=== PATIENT | male | born 1940 | race Caucasian/White ===

== ENCOUNTER → 2020-04-02 09:09 | Outpatient (CLI) | payer MEDICARE, SELFPAY ==
[2020-04-02 11:31] LABS: COVID19 -Nasal RAPID Negative (Negative)
== END ==
PROVIDERS: Visit Provider Nurse Practitioner
DX: Z01.812 Encounter for preprocedural laboratory examination (principal); Z20.822 Contact with and (suspected) exposure to COVID-19
CPT/HCPCS: 87635; C9803

== ENCOUNTER 2020-04-04 08:30 | Day surgery (SDC) | payer MEDICARE, SELFPAY ==
[2020-04-04 08:57] VITALS: BP 162/79; PULSE 109; RESP 24; TEMP 36.8; O2SAT 98; BMI 21.4
[2020-04-04] MEDS: SODIUM CHLORIDE 0.9% 1,000 ML 70 ML IV (08:57)
[2020-04-04] MEDS: ALBUTEROL 2.5 MG/3 ML NEB (ADULT) INH (09:20)
--- NOTE | 2020-04-04 09:22 | PM.HP.1 ---
History of Present Illness History of Present Illness Date Patient Seen: 04/04/20 Time Patient Seen: 09:15 Chief complaint: SCREENING COLONOSCOPY Narrative: Patient is a pleasant 80-year-old male who presented for surveillance colonoscopy. He describes having a personal history colon polyps on his last colonoscopy approximately 2013. He denies diarrhea or constipation. Denies rectal bleeding. He has had some intermittent shortness of breath. He did use his inhalers this morning. He has not had a breathing treatment today. Patient History Family & Social History Social History: household members spouse Tobacco & Substance use: Smoking Status Never smoker alcohol intake never Substance Use Type does not use Meds Home Medications and Allergies Home Medications Medication Instructions Recorded Confirmed Type doxycycline hyclate 100 mg PO Q12H #20 cap 12/02/15 Rx fluticasone propion-salmeterol 1 inh INHALATION DAILY 04/04/20 04/04/20 History [Advair Diskus] hydroxychloroquine 200 mg PO DAILY 04/04/20 04/04/20 History insulin aspart U-100 [Novolog 6 unit SUBCUT 04/04/20 History Flexpen U-100 Insulin] insulin glargine [Lantus Solostar unit SUBCUT DAILY 04/04/20 History U-100 Insulin] lisinopril 5 mg PO DAILY 04/04/20 04/04/20 History pravastatin 20 mg PO DAILY 04/04/20 04/04/20 History Allergies Allergy/AdvReac Type Severity Reaction Status Date / Time shellfish derived AdvReac Verified 04/04/20 08:42 Review of Systems Review of Systems ROS: Yes All systems reviewed with the patient and are negative except as otherwise documented Exam Vital Signs (past 8 hours): - 04/04/20 08:57 Temperature 98.2 F Pulse Rate 109 H Respiratory Rate 24 Blood Pressure 162/79 H Pulse Oximetry 98 Oxygen Delivery Method Room Air Const General: cooperative, healthy appearing, comfortable and well developed Nutritional Appearance: average body habitus Orientation: alert, awake and oriented x3 HENMT Head: normal to inspection, normocephalic and atraumatic Resp Effort & Inspection: normal respiratory effort and able to speak in complete sentences Auscultation: wheezes Cardio Rate: regular rate Rhythm: regular rhythm Heart Sounds: S1 normal and S2 normal Extrem Right lower extremity: no edema Left lower extremity: no edema Assessment & Plan Assessment & Plan narrative: 1. Personal history colon polyps, last colonoscopy approximately 2013 2. Audible wheeze on exam Breathing treatment, followed by colonoscopy with further recommendations to follow
[2020-04-04] MEDS: MIDAZOLAM 5 MG/5 ML VIAL IV (09:55)
[2020-04-04] MEDS: fentaNYL 250 MCG/5 ML INJ IV (09:56)
[2020-04-04 09:57] VITALS: BP 113/56; PULSE 89; RESP 15; TEMP 37.7; O2SAT 97
--- NOTE | 2020-04-04 09:58 | PM.OP.ENDO ---
Operative Date/Time/Diagnoses Date of procedure: 04/04/20 Time of procedure: 09:31 Procedure Notes Procedure in detail: Surgeon: Rebekah Moser DO Procedure: Colonoscopy Preoperative diagnosis: 1. Personal history of colon polyps, last colonoscopy 2013 Postoperative diagnosis: 1. Internal hemorrhoids, otherwise unremarkable colonoscopy Medications: Conscious sedation using 4 mg IV of Midazolam and 100 mcg IV of Fentanyl Preanesthesia Assessment An H and P was performed/updated and the Px?s ASA class is 2. The procedure was discussed in detail with the patient. The potential risks and complications including infection, bleeding, missed lesions, perforation, need for surgery in case of perforation, prolonged hospital stay, and were explained. A brief question and answer period was allotted and once all questions were answered, informed consent was obtained. The patient was brought back to the procedure room and placed on standard monitoring. The patient?s vital signs were monitored continuously throughout the entire procedure. Prior to starting, a timeout was performed to confirm the patient?s identity, allergies, medications, and procedure. Procedure in detail The patient was placed in left lateral decubitus position and once adequate sedation was obtained a DILCIA was performed. The digital rectal examination did not reveal any palpable lesions. The tip of the colonoscope was placed in the anal canal and advanced with some difficulty due to a redundant colon. Manual pressure was applied to help a the scope advance all the way to the cecum which was identified by the appendiceal orifice and the ileocecal valve. Careful examination of all johnson of the colon was performed with irrigation of any residual stool. Second pass of the ascending colon was completed. Grade 1 internal hemorrhoids were noted on retroflexion. The patient tolerated the procedure well and will be brought back to the recovery area to be discharged once criteria are met. The prep was judged to be good/excellent and adequate to identify polyps less than 5 mm. The withdrawal time was 7min. The total physician intraservice time was 20min. Complications There were no complications and estimated blood loss was minimal. Recommendations: Resume previous diet Continue outPx medications No the colonoscopy due to age An emergency contact number was given to the patient for any complications related to the procedure
[2020-04-04 10:02] VITALS: BP 117/56; PULSE 88; RESP 15; O2SAT 97
[2020-04-04 10:06] VITALS: BP 126/63; PULSE 96; RESP 14; O2SAT 98
[2020-04-04 10:10] VITALS: BP 118/62; PULSE 89; RESP 16; O2SAT 99
== END 2020-04-04 10:25 | disposition home or self-care (01) ==
PROVIDERS: PCP Internal Medicine; Referring Provider Student in an Organized Health Care Education/Training Program; Visit Provider Student in an Organized Health Care Education/Training Program
PROC: 0DJD8ZZ Inspection of Lower Intestinal Tract, Via Natural or Artificial Opening Endoscopic (ICD-10-PCS; CPT 45378; principal; 2020-04-04 09:30)
DX: Z12.11 Encounter for screening for malignant neoplasm of colon (principal); Z86.010 Personal history of colon polyps; K64.8 Other hemorrhoids
CPT/HCPCS: G0105; J2250; J3010; J7613

== ENCOUNTER 2020-08-03 04:56 | Inpatient (IN) | payer MEDICARE, SELFPAY ==
[2020-08-03] VITALS (15 sets, daily range): BP systolic 114–146; BP diastolic 59–71; PULSE 84–110; RESP 14–29; TEMP 36.7–37.2; O2SAT 93–97; BMI 20.9
--- NOTE | 2020-08-03 04:58 | DI.RAD.S_ITS ---
PROCEDURE: XR CHEST 1V INDICATIONS: chest pain TECHNIQUE: One view of the chest was acquired. COMPARISON: None. FINDINGS: Surgical changes and devices: None. Lungs and pleura: Peripheral opacities are seen in the right lung most prominent at the apex with bilateral interstitial prominence. There is no pneumothorax. No definite pleural effusions are seen on the separate image, but pleural effusions are noted on the subsequently performed CT. Mediastinum: Mediastinal contours appear normal. Cardiac silhouette is mildly enlarged, with pericardial effusion noted on subsequent CT. Bones and chest wall: No suspicious bony lesions. Overlying soft tissues appear unremarkable. Severe degenerative changes are seen in the left shoulder. IMPRESSION: Right lung consolidations are most prominent in the peripheral right lung apex. Please see the report from the subsequently performed CT pulmonary angiogram for more detailed review of thoracic findings. There is no significant discrepancy when compared to the overnight Teleradiology report. Dictated by: Paul Ellis M.D. on 08/03/2020 at 7:50 Approved by: Paul Ellis M.D. on 08/03/2020 at 7:55
--- NOTE | 2020-08-03 05:05 | ED.GENADULT ---
HPI - General Adult <Yovanny Agarwal DO - Last Filed: 08/03/20 17:55> General Chief complaint: Chest Pain Stated complaint: Chest tightness rapid heart beat Time Seen by Provider: 08/03/20 04:57 Source: patient Mode of arrival: Ambulatory Limitations: no limitations History of Present Illness HPI narrative: Patient is a 80-year-old male. History of insulin-dependent diabetes, high blood pressure and asthma who is here for evaluation of 3 weeks of chest tightness, fevers, weakness, hand increase use of his albuterol. Patient states that for the past several months he has been in the [facility] where he owns a house. He states he had been down there for several months when he started to develop some chest tightness. Also has had a cough. Had 1 episode of a fever and also 1 episode of vomiting but that seems of resolved. Over the course of several months he has had a 12 lb weight loss. Also has been progressively more fatigued. He does have a history of asthma. At baseline does not need to use his albuterol inhaler on a regular basis since he was switched to Advair however over the past couple weeks his albuterol use has increased. He has become very fatigued and short of breath with minimal activity. Does have bilateral ankle swelling but this is not new for him. He denies any chest pain. When I clarify further with him the chest tightness is how he describes not being able to take a full deep breath. He does think that his albuterol inhaler helps a small amount. He states that for the past 3 weeks he has had somewhat of consistent symptoms however there have been periods of time when it has been worse than others. Has not tried anything for symptoms prior to arrival. There has also been some. The time when his heart rate has been elevated at home on their home monitor. Related Data Home Medications Medication Instructions Recorded Confirmed Lantus Solostar U-100 Insulin 12 unit SUBCUT BEDTIME 04/04/20 08/03/20 fluticasone propion-salmeterol 1 inh INHALATION DAILY 04/04/20 08/03/20 [Advair Diskus] hydroxychloroquine 200 mg PO BID 04/04/20 08/03/20 insulin aspart U-100 [Novolog 6 unit SUBCUT TIDWMEAL 04/04/20 08/03/20 Flexpen U-100 Insulin] lisinopril 5 mg PO DAILY 04/04/20 08/03/20 pravastatin 20 mg PO BEDTIME 04/04/20 08/03/20 ferrous gluconate 324 mg PO DAILY 08/03/20 08/03/20 sulfasalazine 500 mg PO BID 08/03/20 08/03/20 vitamin B complex [Vitamin B 1 tab PO DAILY 08/03/20 08/03/20 Complex-100] Allergies Allergy/AdvReac Type Severity Reaction Status Date / Time shellfish derived AdvReac Verified 04/04/20 08:42 Review of Systems <Yovanny Agarwal DO - Last Filed: 08/03/20 17:55> Constitutional Constitutional: Reports fatigue, Reports fever(s), Reports lethargy, Reports poor appetite and Reports weakness Eyes Eyes: Reports system reviewed and no additional complaints, except as documented ENT Ears, Nose, Mouth, and Throat: Reports system reviewed and no additional complaints, except as documented Cardiovascular Cardiovascular: Denies chest pain, Reports rapid heart rate, Reports dyspnea and Reports dyspnea on exertion Respiratory Respiratory: Reports cough, Reports dyspnea and Reports dyspnea on exertion Gastrointestinal Gastrointestinal: Denies abdominal pain, Denies change in bowel habits and Reports vomiting Genitourinary Genitourinary: Reports system reviewed and no additional complaints, except as documented Musculoskeletal Musculoskeletal: Reports system reviewed and no additional complaints, except as documented Integumentary/Breasts Skin/Breast: Reports system reviewed and no additional complaints, except as documented Neurologic Neurologic: Reports system reviewed and no additional complaints, except as documented and Reports weakness Endocrine Endocrine: Reports fatigue Comments: Weight loss Hematologic/Lymphatic On Anticoagulants: No Allergic/Immunologic Allergic/Immunologic: Reports system reviewed and no additional complaints, except as documented Patient History <Yovanny Agarwal DO - Last Filed: 08/03/20 17:55> Medical History (Updated 08/03/20 @ 10:42 by Luz Marina Mcdonald RN) Cataract COPD (chronic obstructive pulmonary disease) Diabetes History of colon polyps Ingrowing toenail of left foot Surgical History (Updated 08/03/20 @ 10:42 by Luz Marina Mcdonald RN) History of cataract surgery Total knee replacement status Social History household members: spouse and family Smoking Status: Never smoker alcohol intake: former Smoking Status: Never smoker Substance Use Type: does not use Exam <DO Aleida Haque Last Filed: 08/03/20 17:55> Initial Vital Signs Initial Vital Signs: Vital Signs Temperature 98.1 F 08/03/20 05:00 Pulse Rate 100 H 08/03/20 05:00 Respiratory Rate 26 H 08/03/20 05:00 Blood Pressure 144/68 H 08/03/20 05:00 Pulse Oximetry 97 08/03/20 05:00 Const General: cooperative and comfortable Limitations: mental status not altered HENIA Head: normal to inspection and normocephalic Chest Chest: normal inspection of the chest Resp Effort & Inspection: tachypneic Auscultation: clear to auscultation bilaterally Cardio Rate: regular rate Rhythm: regular rhythm GI Inspection: non-distended Palpation: soft Skin Lesions: no lesions Rashes: no rashes Neuro General: patient alert, patient awake, patient oriented x3 and moves all extremities Cognition: normal cognition Speech: speech normal Extrem General: normal to inspection and capillary refill normal Psych Appearance: grossly normal and well kempt <Xiomy Dover DO - Last Filed: 08/03/20 18:34> Initial Vital Signs Initial Vital Signs: Vital Signs Temperature 98.1 F 08/03/20 05:00 Pulse Rate 100 H 08/03/20 05:00 Respiratory Rate 26 H 08/03/20 05:00 Blood Pressure 144/68 H 08/03/20 05:00 Pulse Oximetry 97 08/03/20 05:00 Course <DO Aleida Haque Last Filed: 08/03/20 17:55> Orders Ordered: Discontinued Medications Acetaminophen (Acetaminophen 325 Mg Tablet) 650 mg PO Q6HR PRN PRN Reason: Fever/Mild Pain (1-3) Dextrose (Dextrose 50 % In Water 25 Gm/50 Ml Syringe) 25 gm IV PRN PRN PRN Reason: Hypoglycemia Enoxaparin Sodium (Enoxaparin 40 Mg/0.4 Ml Syringe) 40 mg SUBCUT DAILY ASTRID Azithromycin 500 mg/ Dextrose 250 mls @ 250 mls/hr IV NOW ONE Stop: 08/03/20 05:38 Last Infusion: 08/03/20 06:48 Dose: 0 mls/hr Documented by: Admin: 08/03/20 05:50 Dose: 250 mls/hr Documented by: MAXINE Ceftriaxone Sodium 1,000 mg/ (Sodium Chloride) 100 mls @ 200 mls/hr IV Q24H [facility] Last Infusion: 08/03/20 13:08 Dose: 0 mls/hr Documented by: Admin: 08/03/20 11:12 Dose: 200 mls/hr Documented by: KIYA Sodium Chloride (Normal Saline 0.9%) 1,000 mls @ 100 mls/hr IV CONT [facility] Last Admin: 08/03/20 13:44 Dose: 100 mls/hr Documented by: DALTON Ibuprofen (Ibuprofen 600 Mg Tablet) 600 mg PO Q6HR PRN PRN Reason: Fever/Mild Pain (1-3) Insulin Glargine (Insulin Glargine 100 Unit/Ml 3ml Pen) 12 unit SUBCUT BEDTIME ASTRID Insulin Human Lispro (Insulin Lispro 100 Unit/Ml 3ml Vial) 0 unit SUBCUT ACHS ASTRID; Protocol Insulin Human Lispro (Insulin Lispro 100 Unit/Ml 3ml Vial) 6 unit SUBCUT AC ASTRID Insulin Human Lispro (Insulin Lispro 100 Unit/Ml 3ml Vial) 10 unit SUBCUT NOW ONE Stop: 08/03/20 17:22 Last Admin: 08/03/20 17:39 Dose: 10 unit Documented by: BERNARDA Cosigned by: DAIN Naloxone HCl (Naloxone 0.4 Mg/Ml Vial) 0.2 mg IV Q2MIN PRN PRN Reason: Opiate Reversal Ondansetron HCl (Ondansetron 4 Mg/2 Ml Inj) 4 mg IV Q8HR PRN PRN Reason: Nausea And Vomiting Pravastatin Sodium (Pravastatin 20 Mg Tablet) 20 mg PO BEDTIME [facility] Vital Signs Vital signs: Vital Signs - 8 hr 08/03/20 05:00 08/03/20 05:09 08/03/20 05:30 Temperature 98.1 F Pulse Rate 100 H 96 H 94 H Respiratory Rate 26 H 29 H 25 H Blood Pressure 144/68 H 146/71 H Pulse Oximetry 97 95 96 08/03/20 05:56 08/03/20 06:00 08/03/20 06:32 Temperature Pulse Rate 89 86 93 H Respiratory Rate 19 20 19 Blood Pressure 127/64 133/64 Pulse Oximetry 96 96 96 08/03/20 06:33 08/03/20 07:00 Temperature Pulse Rate 92 H 86 Respiratory Rate 24 29 H Blood Pressure 140/69 119/61 Pulse Oximetry 97 95 <Xiomy Dover, DO - Last Filed: 08/03/20 18:34> Orders Ordered: Discontinued Medications Acetaminophen (Acetaminophen 325 Mg Tablet) 650 mg PO Q6HR PRN PRN Reason: Fever/Mild Pain (1-3) Dextrose (Dextrose 50 % In Water 25 Gm/50 Ml Syringe) 25 gm IV PRN PRN PRN Reason: Hypoglycemia Enoxaparin Sodium (Enoxaparin 40 Mg/0.4 Ml Syringe) 40 mg SUBCUT DAILY [facility] Azithromycin 500 mg/ Dextrose 250 mls @ 250 mls/hr IV NOW ONE Stop: 08/03/20 05:38 Last Infusion: 08/03/20 06:48 Dose: 0 mls/hr Documented by: Admin: 08/03/20 05:50 Dose: 250 mls/hr Documented by: MAXINE Ceftriaxone Sodium 1,000 mg/ (Sodium Chloride) 100 mls @ 200 mls/hr IV Q24H [facility] Last Infusion: 08/03/20 13:08 Dose: 0 mls/hr Documented by: Admin: 08/03/20 11:12 Dose: 200 mls/hr Documented by: KIYA Sodium Chloride (Normal Saline 0.9%) 1,000 mls @ 100 mls/hr IV CONT [facility] Last Admin: 08/03/20 13:44 Dose: 100 mls/hr Documented by: DALTON Ibuprofen (Ibuprofen 600 Mg Tablet) 600 mg PO Q6HR PRN PRN Reason: Fever/Mild Pain (1-3) Insulin Glargine (Insulin Glargine 100 Unit/Ml 3ml Pen) 12 unit SUBCUT BEDTIME ASTRID Insulin Human Lispro (Insulin Lispro 100 Unit/Ml 3ml Vial) 0 unit SUBCUT ACHS ASTRID; Protocol Insulin Human Lispro (Insulin Lispro 100 Unit/Ml 3ml Vial) 6 unit SUBCUT AC ASTRID Insulin Human Lispro (Insulin Lispro 100 Unit/Ml 3ml Vial) 10 unit SUBCUT NOW ONE Stop: 08/03/20 17:22 Last Admin: 08/03/20 17:39 Dose: 10 unit Documented by: BERNARDA Cosigned by: DAIN Naloxone HCl (Naloxone 0.4 Mg/Ml Vial) 0.2 mg IV Q2MIN PRN PRN Reason: Opiate Reversal Ondansetron HCl (Ondansetron 4 Mg/2 Ml Inj) 4 mg IV Q8HR PRN PRN Reason: Nausea And Vomiting Pravastatin Sodium (Pravastatin 20 Mg Tablet) 20 mg PO BEDTIME [facility] Vital Signs Vital signs: Vital Signs - 8 hr 08/03/20 05:00 08/03/20 05:09 08/03/20 05:30 Temperature 98.1 F Pulse Rate 100 H 96 H 94 H Respiratory Rate 26 H 29 H 25 H Blood Pressure 144/68 H 146/71 H Pulse Oximetry 97 95 96 08/03/20 05:56 08/03/20 06:00 08/03/20 06:32 Temperature Pulse Rate 89 86 93 H Respiratory Rate 19 20 19 Blood Pressure 127/64 133/64 Pulse Oximetry 96 96 96 08/03/20 06:33 08/03/20 07:00 Temperature Pulse Rate 92 H 86 Respiratory Rate 24 29 H Blood Pressure 140/69 119/61 Pulse Oximetry 97 95 Medical Decision Making <Yovanny Agarwal DO - Last Filed: 08/03/20 17:55> Lab Data Lab results reviewed: Yes I reviewed the patient's lab results. Result diagrams: 08/03/20 05:20 08/03/20 05:20 Labs: Lab Results 08/03/20 08/03/20 08/03/20 Range/Units 05:20 05:20 05:20 WBC 14.3 H (4.5-11.0) X10^3/uL RBC 3.30 L (4.5-5.9) X10^6/uL Hgb 9.9 L (13.5-17.5) g/dL Hct 29.8 L (41-53) % MCV 90.4 (80-100) fL MCH 30.0 (26-34) PG MCHC 33.2 (30-36) % RDW 14.5 (11.6-14.8) % Plt Count 410 H (150-400) X10^3/uL Neut % (Auto) 71.4 (50-75) % Lymph % (Auto) 4.7 L (25-40) % Ward % (Auto) 5.0 (3-14) % Eos % (Auto) 18.7 H (2-4) % Baso % (Auto) 0.2 (0-2) % Neut # (Auto) 80283 H (6346-8960) /uL Lymph # (Auto) 700 L (2105-9913) /uL Ward # (Auto) 700 (0-900) /uL Eos # (Auto) 2700 H (0-450) /uL Baso # (Auto) 0 (0-100) /uL D-Dimer (<230) ng/mL Sodium 135 L (137-145) mmol/L Potassium 4.2 (3.4-5.1) mmol/L Chloride 106 (98-107) mmol/L Carbon Dioxide 21 L (22-32) mmol/L BUN 28 H (9-20) mg/dL Creatinine 0.92 (0.66-1.25) mg/dL Estimated GFR > 60.0 (>60) mL/min BUN/Creatinine Ratio 30.4 H (6-22) Glucose 185 H (80-110) mg/dL Calcium 9.6 (8.4-10.2) mg/dL Total Bilirubin 0.4 (0.2-1.3) mg/dL AST 34 (17-59) IU/L ALT 25 (<50) IU/L Alkaline Phosphatase 99 (38-126) U/L Total Creatine Kinase 85 (55-170) U/L CK-MB (CK-2) TNP CK-MB (CK-2) Rel Index TNP Troponin I 0.061 H (0.01-0.034) ng/mL NT-Pro-B Natriuret Pep (<450) pg/mL Total Protein 7.3 (6.3-8.2) g/dL Albumin 3.3 L (3.5-5.0) g/dL Globulin 4.0 (1.7-4.1) g/dL Albumin/Globulin Ratio 0.8 L (1.0-2.8) Lipase 18 L (23-300) U/L Procalcitonin (<0.5) ng/mL SARS-CoV-2 (PCR) (Negative) 08/03/20 08/03/20 08/03/20 Range/Units 05:20 05:20 05:25 WBC (4.5-11.0) X10^3/uL RBC (4.5-5.9) X10^6/uL Hgb (13.5-17.5) g/dL Hct (41-53) % MCV (80-100) fL MCH (26-34) PG MCHC (30-36) % RDW (11.6-14.8) % Plt Count (150-400) X10^3/uL Neut % (Auto) (50-75) % Lymph % (Auto) (25-40) % Ward % (Auto) (3-14) % Eos % (Auto) (2-4) % Baso % (Auto) (0-2) % Neut # (Auto) (3269-4601) /uL Lymph # (Auto) (9473-6598) /uL Ward # (Auto) (0-900) /uL Eos # (Auto) (0-450) /uL Baso # (Auto) (0-100) /uL D-Dimer (<230) ng/mL Sodium (137-145) mmol/L Potassium (3.4-5.1) mmol/L Chloride (98-107) mmol/L Carbon Dioxide (22-32) mmol/L BUN (9-20) mg/dL Creatinine (0.66-1.25) mg/dL Estimated GFR (>60) mL/min BUN/Creatinine Ratio (6-22) Glucose (80-110) mg/dL Calcium (8.4-10.2) mg/dL Total Bilirubin (0.2-1.3) mg/dL AST (17-59) IU/L ALT (<50) IU/L Alkaline Phosphatase (38-126) U/L Total Creatine Kinase (55-170) U/L CK-MB (CK-2) CK-MB (CK-2) Rel Index Troponin I (0.01-0.034) ng/mL NT-Pro-B Natriuret Pep 903 H (<450) pg/mL Total Protein (6.3-8.2) g/dL Albumin (3.5-5.0) g/dL Globulin (1.7-4.1) g/dL Albumin/Globulin Ratio (1.0-2.8) Lipase (23-300) U/L Procalcitonin 0.28 (<0.5) ng/mL SARS-CoV-2 (PCR) Negative (Negative) 08/03/20 08/03/20 Range/Units 05:48 07:37 WBC (4.5-11.0) X10^3/uL RBC (4.5-5.9) X10^6/uL Hgb (13.5-17.5) g/dL Hct (41-53) % MCV (80-100) fL MCH (26-34) PG MCHC (30-36) % RDW (11.6-14.8) % Plt Count (150-400) X10^3/uL Neut % (Auto) (50-75) % Lymph % (Auto) (25-40) % Ward % (Auto) (3-14) % Eos % (Auto) (2-4) % Baso % (Auto) (0-2) % Neut # (Auto) (6983-3493) /uL Lymph # (Auto) (6488-6441) /uL Ward # (Auto) (0-900) /uL Eos # (Auto) (0-450) /uL Baso # (Auto) (0-100) /uL D-Dimer 894 H (<230) ng/mL Sodium (137-145) mmol/L Potassium (3.4-5.1) mmol/L Chloride (98-107) mmol/L Carbon Dioxide (22-32) mmol/L BUN (9-20) mg/dL Creatinine (0.66-1.25) mg/dL Estimated GFR (>60) mL/min BUN/Creatinine Ratio (6-22) Glucose (80-110) mg/dL Calcium (8.4-10.2) mg/dL Total Bilirubin (0.2-1.3) mg/dL AST (17-59) IU/L ALT (<50) IU/L Alkaline Phosphatase (38-126) U/L Total Creatine Kinase (55-170) U/L CK-MB (CK-2) CK-MB (CK-2) Rel Index Troponin I 0.076 H (0.01-0.034) ng/mL NT-Pro-B Natriuret Pep (<450) pg/mL Total Protein (6.3-8.2) g/dL Albumin (3.5-5.0) g/dL Globulin (1.7-4.1) g/dL Albumin/Globulin Ratio (1.0-2.8) Lipase (23-300) U/L Procalcitonin (<0.5) ng/mL SARS-CoV-2 (PCR) (Negative) Imaging Data Chest x-ray: Radiologist's Impression: Bilateral interstitial paced 80s with airspace consolidation in the right upper and to a lesser extent lower lobe ECG Data Attestation: I personally reviewed and interpreted this ECG as follows: Prior ECG tracings: not available for review Interpretation: Sinus rhythm Ventricular rate 97 Normal axis Normal QRS Normal QTC No ST T wave changes MDM Narrative Medical decision making narrative: Patient is not tachycardic but is tachypneic. Not hypoxic. Does have a leukocytosis without a left shift. Has a negative procalcitonin however given his initial clinical presentation he was given azithromycin IV for concerns of a pneumonia once his chest x-ray was resulted. BNP slightly elevated. Troponin slightly elevated. Age adjusted D-dimer elevated so a CTA of his chest was obtained to evaluate for pulmonary embolism. Care turned over to day provider to follow-up on CT scan result and disposition. <Xiomy Dover, - Last Filed: 08/03/20 18:34> Lab Data Labs: Lab Results 08/03/20 08/03/20 08/03/20 Range/Units 05:20 05:20 05:20 WBC 14.3 H (4.5-11.0) X10^3/uL RBC 3.30 L (4.5-5.9) X10^6/uL Hgb 9.9 L (13.5-17.5) g/dL Hct 29.8 L (41-53) % MCV 90.4 (80-100) fL MCH 30.0 (26-34) PG MCHC 33.2 (30-36) % RDW 14.5 (11.6-14.8) % Plt Count 410 H (150-400) X10^3/uL Neut % (Auto) 71.4 (50-75) % Lymph % (Auto) 4.7 L (25-40) % Ward % (Auto) 5.0 (3-14) % Eos % (Auto) 18.7 H (2-4) % Baso % (Auto) 0.2 (0-2) % Neut # (Auto) 40035 H (3400-0098) /uL Lymph # (Auto) 700 L (5525-6069) /uL Ward # (Auto) 700 (0-900) /uL Eos # (Auto) 2700 H (0-450) /uL Baso # (Auto) 0 (0-100) /uL D-Dimer (<230) ng/mL Sodium 135 L (137-145) mmol/L Potassium 4.2 (3.4-5.1) mmol/L Chloride 106 (98-107) mmol/L Carbon Dioxide 21 L (22-32) mmol/L BUN 28 H (9-20) mg/dL Creatinine 0.92 (0.66-1.25) mg/dL Estimated GFR > 60.0 (>60) mL/min BUN/Creatinine Ratio 30.4 H (6-22) Glucose 185 H (80-110) mg/dL Calcium 9.6 (8.4-10.2) mg/dL Total Bilirubin 0.4 (0.2-1.3) mg/dL AST 34 (17-59) IU/L ALT 25 (<50) IU/L Alkaline Phosphatase 99 (38-126) U/L Total Creatine Kinase 85 (55-170) U/L CK-MB (CK-2) TNP CK-MB (CK-2) Rel Index TNP Troponin I 0.061 H (0.01-0.034) ng/mL NT-Pro-B Natriuret Pep (<450) pg/mL Total Protein 7.3 (6.3-8.2) g/dL Albumin 3.3 L (3.5-5.0) g/dL Globulin 4.0 (1.7-4.1) g/dL Albumin/Globulin Ratio 0.8 L (1.0-2.8) Lipase 18 L (23-300) U/L Procalcitonin (<0.5) ng/mL SARS-CoV-2 (PCR) (Negative) 08/03/20 08/03/20 08/03/20 Range/Units 05:20 05:20 05:25 WBC (4.5-11.0) X10^3/uL RBC (4.5-5.9) X10^6/uL Hgb (13.5-17.5) g/dL Hct (41-53) % MCV (80-100) fL MCH (26-34) PG MCHC (30-36) % RDW (11.6-14.8) % Plt Count (150-400) X10^3/uL Neut % (Auto) (50-75) % Lymph % (Auto) (25-40) % Ward % (Auto) (3-14) % Eos % (Auto) (2-4) % Baso % (Auto) (0-2) % Neut # (Auto) (3135-1672) /uL Lymph # (Auto) (0753-7413) /uL Ward # (Auto) (0-900) /uL Eos # (Auto) (0-450) /uL Baso # (Auto) (0-100) /uL D-Dimer (<230) ng/mL Sodium (137-145) mmol/L Potassium (3.4-5.1) mmol/L Chloride (98-107) mmol/L Carbon Dioxide (22-32) mmol/L BUN (9-20) mg/dL Creatinine (0.66-1.25) mg/dL Estimated GFR (>60) mL/min BUN/Creatinine Ratio (6-22) Glucose (80-110) mg/dL Calcium (8.4-10.2) mg/dL Total Bilirubin (0.2-1.3) mg/dL AST (17-59) IU/L ALT (<50) IU/L Alkaline Phosphatase (38-126) U/L Total Creatine Kinase (55-170) U/L CK-MB (CK-2) CK-MB (CK-2) Rel Index Troponin I (0.01-0.034) ng/mL NT-Pro-B Natriuret Pep 903 H (<450) pg/mL Total Protein (6.3-8.2) g/dL Albumin (3.5-5.0) g/dL Globulin (1.7-4.1) g/dL Albumin/Globulin Ratio (1.0-2.8) Lipase (23-300) U/L Procalcitonin 0.28 (<0.5) ng/mL SARS-CoV-2 (PCR) Negative (Negative) 08/03/20 08/03/20 Range/Units 05:48 07:37 WBC (4.5-11.0) X10^3/uL RBC (4.5-5.9) X10^6/uL Hgb (13.5-17.5) g/dL Hct (41-53) % MCV (80-100) fL MCH (26-34) PG MCHC (30-36) % RDW (11.6-14.8) % Plt Count (150-400) X10^3/uL Neut % (Auto) (50-75) % Lymph % (Auto) (25-40) % Ward % (Auto) (3-14) % Eos % (Auto) (2-4) % Baso % (Auto) (0-2) % Neut # (Auto) (2905-9621) /uL Lymph # (Auto) (9445-1189) /uL Ward # (Auto) (0-900) /uL Eos # (Auto) (0-450) /uL Baso # (Auto) (0-100) /uL D-Dimer 894 H (<230) ng/mL Sodium (137-145) mmol/L Potassium (3.4-5.1) mmol/L Chloride (98-107) mmol/L Carbon Dioxide (22-32) mmol/L BUN (9-20) mg/dL Creatinine (0.66-1.25) mg/dL Estimated GFR (>60) mL/min BUN/Creatinine Ratio (6-22) Glucose (80-110) mg/dL Calcium (8.4-10.2) mg/dL Total Bilirubin (0.2-1.3) mg/dL AST (17-59) IU/L ALT (<50) IU/L Alkaline Phosphatase (38-126) U/L Total Creatine Kinase (55-170) U/L CK-MB (CK-2) CK-MB (CK-2) Rel Index Troponin I 0.076 H (0.01-0.034) ng/mL NT-Pro-B Natriuret Pep (<450) pg/mL Total Protein (6.3-8.2) g/dL Albumin (3.5-5.0) g/dL Globulin (1.7-4.1) g/dL Albumin/Globulin Ratio (1.0-2.8) Lipase (23-300) U/L Procalcitonin (<0.5) ng/mL SARS-CoV-2 (PCR) (Negative) Imaging Data CT scan - chest: Radiologist's Impression: PROCEDURE: CT ANGIO CHEST PE PROTOCOL INDICATIONS: chest pain, shortness of breath TECHNIQUE: After the administration of intravenous contrast, 2 mm thick sections acquired from the pulmonary apices to the posterior costophrenic angles. 3-dimensional maximum intensity projection (MIP) coronal and sagittal reformats were then acquired through the thorax. For radiation dose reduction, the following was used: automated exposure control, adjustment of mA and/or kV according to patient size. COMPARISON: [facility], CR, XR CHEST 1V, 08/03/2020, 5:00. FINDINGS: Image quality: Excellent. Pulmonary arteries: Pulmonary arteries are normal in size, and demonstrate no intraluminal filling defects to suggest central pulmonary embolism. Lungs and pleura: Right upper lobe consolidation. Patchy airspace infiltrates in right middle lobe and right lower lobe, as well as left lung. There are bilateral pleural effusions, moderate on the right and small on the left. No pneumothorax. Central and peripheral airways are patent. Small subcentimeter nodules are noted bilaterally. Nodule 1: 7 mm; RML; Series 5, image 214. Nodule 2: 6 mm; LLL; series 5, image 253. Mediastinum: Heart size is normal. There is ozwavsbb-nu-ktfhp-sized pericardial effusion. Xkznqqca-qp-nerwva coronary artery calcification. There are enlarged mediastinal or right hilar lymph nodes. For example, there is a 1.5 cm right paratracheal lymph node and a 1.5 x 2.2 cm subcarinal lymph node. A 2.2 cm right hilar lymph node is identified. Thoracic aorta is normal in caliber and enhancement. Esophagus is normal in caliber. Small hiatal hernia. Bones and chest wall: No suspicious bony lesions. Degenerative changes in thoracic and upper lumbar spine. Ribs and thoracic spine appear intact throughout. Thyroid gland is normal. No axillary or supraclavicular adenopathy. Abdomen: Visualized upper abdominal solid organs appear normal in the early arterial phase of enhancement. IMPRESSION: 1. No evidence for pulmonary embolism. 2. Bilateral patchy infiltrates and right upper lobe consolidation consistent with pneumonia. 3. Mediastinal and right hilar lymphadenopathy. 4. Small pulmonary nodules bilaterally. Recommend CT follow-up in 3 months. Please see enclosed follow-up recommendation. 5. Skfpplsi-[id number]-drvjt pericardial effusion. 6. Bilateral pleural effusions, moderate on the right and small on the left. 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 Dictated by: Ibis Dow M.D. on 08/03/2020 at 7:38 MDM Narrative Medical decision making narrative: I received sign-out from Dr. Agarwal at seen evaluated patient myself. Patient is a 80-year-old male who has had about 3 weeks of generalized weakness cough low-grade fever and weight loss. He has had some chest pressure. He was down in the [facility] for 2 and half months he noticed that his heart rate was irregular and fast at about 140 for about a day and half and then it stopped. He has some shortness of breath with exertion he notices that if he leans have very far forward it activates the cough. He does cough up some things. CT does show pericardial effusion pleural effusion he has got a white count he is mildly anemic he has slight elevation in troponin at 0.61. Patient's symptoms are concerning more for malignancy rather than infection. 8:[address] Pina cardiology updated on patient's symptoms test results at this time recommend echocardiogram monitoring no need to transfer 8:05 a.m. , date patient's symptoms test results at this time agrees with observation Discharge Plan Departure Patient Disposition: Admitted as Observation Clinical Impression: Atypical chest pain, Effusion, pericardium Admit Date/Time: 08/03/20 09:21 Admit Provider: Eugene Cintron
[2020-08-03 05:34] LABS: Add Manual Diff / Slide Review NO; Basophils Absolute Auto 0 /uL (0-100); Basophils Percent Auto 0.2 % (0-2); Eosinophils Absolute Auto 2700 /uL (0-450); Eosinophils Percent Auto 18.7 % (2-4); Hematocrit 29.8 % (41-53); Hemoglobin 9.9 g/dL (13.5-17.5); Lymphocytes Absolute Auto 700 /uL (1100-4500); Lymphocytes Percent Auto 4.7 % (25-40); Mean Corpuscular HGB Conc 33.2 % (30-36); Mean Corpuscular Volume 90.4 fL (80-100); Monocytes Absolute Auto 700 /uL (0-900); Neutrophils Absolute Auto 10200 /uL (1500-7000); Neutrophils Percent Auto 71.4 % (50-75); Platelet Count 410 X10^3/uL (150-400); Red Cell Distribution Width 14.5 % (11.6-14.8); White Blood Cell Count 14.3 X10^3/uL (4.5-11.0)
[2020-08-03 05:41] LABS: Alanine Aminotransferase 25 IU/L (<50); Albumin 3.3 g/dL (3.5-5.0); Albumin Globulin Ratio 0.8 (1.0-2.8); Alkaline Phosphatase 99 U/L (38-126); Aspartate Aminotransferase 34 IU/L (17-59); BUN Creatinine Ratio 30.4 (6-22); Bilirubin Total 0.4 mg/dL (0.2-1.3); Blood Urea Nitrogen 28 mg/dL (9-20); Calcium 9.6 mg/dL (8.4-10.2); Carbon Dioxide 21 mmol/L (22-32); Chloride 106 mmol/L (98-107); Creatine Kinase 85 U/L (55-170); Estimated Glomerular Filt Rate > 60.0 mL/min (>60); Glucose 185 mg/dL (80-110); HEMOLYSIS < 15 (0-50); Lipase 18 U/L (23-300); Potassium 4.2 mmol/L (3.4-5.1); Sodium 135 mmol/L (137-145); Total Protein 7.3 g/dL (6.3-8.2)
[2020-08-03 05:50] LABS: NT-proBNP (BNP-Adult 18+) 903 pg/mL (<450)
[2020-08-03] MEDS: AZITHROMYCIN 500 MG in DEXTROSE 5% IN WATER 250 ML IV (05:50)
[2020-08-03 05:52] LABS: Troponin I 0.061 ng/mL (0.01-0.034)
[2020-08-03 05:53] LABS: COVID19 -Nasal RAPID Negative (Negative)
[2020-08-03 06:03] LABS: D Dimer 894 ng/mL (<230)
[2020-08-03 06:11] LABS: Procalcitonin 0.28 ng/mL (<0.5)
--- NOTE | 2020-08-03 06:14 | DI.CT.S_ITS ---
PROCEDURE: CT ANGIO CHEST PE PROTOCOL INDICATIONS: chest pain, shortness of breath TECHNIQUE: After the administration of intravenous contrast, 2 mm thick sections acquired from the pulmonary apices to the posterior costophrenic angles. 3-dimensional maximum intensity projection (MIP) coronal and sagittal reformats were then acquired through the thorax. For radiation dose reduction, the following was used: automated exposure control, adjustment of mA and/or kV according to patient size. COMPARISON: [facility], CR, XR CHEST 1V, 08/03/2020, 5:00. FINDINGS: Image quality: Excellent. Pulmonary arteries: Pulmonary arteries are normal in size, and demonstrate no intraluminal filling defects to suggest central pulmonary embolism. Lungs and pleura: Right upper lobe consolidation. Patchy airspace infiltrates in right middle lobe and right lower lobe, as well as left lung. There are bilateral pleural effusions, moderate on the right and small on the left. No pneumothorax. Central and peripheral airways are patent. Small subcentimeter nodules are noted bilaterally. Nodule 1: 7 mm; RML; Series 5, image 214. Nodule 2: 6 mm; LLL; series 5, image 253. Mediastinum: Heart size is normal. There is qzrtbguu-ew-iawjl-sized pericardial effusion. Amhivwfh-rt-ngnmak coronary artery calcification. There are enlarged mediastinal or right hilar lymph nodes. For example, there is a 1.5 cm right paratracheal lymph node and a 1.5 x 2.2 cm subcarinal lymph node. A 2.2 cm right hilar lymph node is identified. Thoracic aorta is normal in caliber and enhancement. Esophagus is normal in caliber. Small hiatal hernia. Bones and chest wall: No suspicious bony lesions. Degenerative changes in thoracic and upper lumbar spine. Ribs and thoracic spine appear intact throughout. Thyroid gland is normal. No axillary or supraclavicular adenopathy. Abdomen: Visualized upper abdominal solid organs appear normal in the early arterial phase of enhancement. IMPRESSION: 1. No evidence for pulmonary embolism. 2. Bilateral patchy infiltrates and right upper lobe consolidation consistent with pneumonia. 3. Mediastinal and right hilar lymphadenopathy. 4. Small pulmonary nodules bilaterally. Recommend CT follow-up in 3 months. Please see enclosed follow-up recommendation. 5. Wrbefwtt-bj-veubm pericardial effusion. 6. Bilateral pleural effusions, moderate on the right and small on the left. No significant discrepancy with the machinist 2nd shift radiology preliminary report. Dictated by: Ibis Dow M.D. on 08/03/2020 at 7:38 Approved by: Ibis Dow M.D. on 08/03/2020 at 7:48
--- NOTE | 2020-08-03 08:10 | DI.ECHO.S_ITS ---
[facility] +---------+ : : [address] : : : : [id number] : : : : Phone: [phone]---------+ Echocardiogram Report + + :Name: SANAZ MENG Study Date: 08/03/2020 Height: 71 in : :[facility] ReadingLocation: Weight: 150 lb : : Gender: Male BSA: 1.9 m2 : :: 1940 Age: 80 yrs BP: 123/64 mmHg: :Reason For Study: Pericardial Effusion : :Ordering Physician: LUZMARIA, : :RACHEL PATEL Performed By: Adithya Good : :Referring: RACHEL DUTTA : + + Interpretation Summary The left ventricle is hyperdynamic with ejection fraction 70-75%. Mild to moderate mitral annular calcification. Moderate pericardial effusion that is circumferential. There are echocardiographic indications for early cardiac tamponade. Dr Dutta was notified. Procedure: A two-dimensional transthoracic echocardiogram with color flow and Doppler was performed. The study quality was technically adequate. There is no prior echocardiogram noted for this patient. The patient was in sinus rhythm with heart rates between 89-92 bpm during the exam. Left Ventricle: The left ventricle is normal in size and wall thickness. The left ventricle is hyperdynamic. The ejection fraction is estimated to be 70- 75%. There are no focal wall motion abnormalities. Diastolic function could not be accurately assessed due to unobtainable data. Right Ventricle: The right ventricle is normal in size and function. Atria: Both atria are normal in size. There is no Doppler evidence for an interatrial shunt. Mitral Valve: There is mild to moderate mitral annular calcification. There is no mitral regurgitation noted. Aortic Valve: The aortic valve is normal in structure and function. No aortic regurgitation is present. Tricuspid Valve: The tricuspid valve is normal in structure and function. There is a trace or physiologic amount of tricuspid regurgitation. Pulmonary artery pressures cannot be estimated because of the lack of a measurable TR jet velocity but the IVC suggests a CVP of around 3 mmHg. Pulmonic Valve: The pulmonic valve is not well visualized. There is no pulmonic valvular regurgitation. Great Vessels: The aortic root is normal size. The dimensions of the ascending aorta are normal. The IVC is of normal diameter and collapses greater than 50% with a sniff. This suggests a low right atrial pressure of 3 mm Hg. Pericardium/ Pleura There is a moderate pericardial effusion that is circumferential. There are echocardiographic indications for early cardiac tamponade. There is a small left-sided pleural effusion. MMode/2D Measurements & Calculations LVIDd: 5.2 cm LVOT diam: 2.0 cm LVIDs: 2.8 cm Ao root diam: 3.3 cm FS: 46.6 % asc Aorta Diam: 3.3 cm IVSd: 0.63 cm LVPWd: 0.79 cm LV espino. diameter/BSA (cm/m^2): 2.8 LV sys. diameter/BSA (cm/m^2): 1.5 LA A2 area: 16.6 cm2 RA long axis: 4.6 cm LA A4 area: 13.7 cm2 RA area: 10.9 cm2 LA length (vol): 4.4 cm RA vol: 22.1 ml LA vol: 44.2 ml RA : 11.8 ml/m2 LA vol index: 23.7 ml/m2 IVC diam: 1.4 cm RVD1 (basal): 2.8 cm TAPSE: 2.1 cm Doppler Measurements & Calculations Ao V2 max: 154.0 cm/sec LVOT Max Vazquez: 127.0 cm/sec Ao V2 mean: 112.1 cm/sec LV V1 max P.4 mmHg Ao max P.5 mmHg LV V1 VTI: 33.9 cm Ao mean P.5 mmHg KYLE(I,D): 3.6 cm2 Ao V2 VTI: 29.0 cm KYLE(V,D): 2.6 cm2 sev ratio: 1.2 KYLE indexed to BSA (cm^2/m^2): 2.0 MV E max vazquez: 100.9 cm/sec PA V2 max: 109.1 cm/sec MV A max vazquez: 133.4 cm/sec PA V2 mean: 73.6 cm/sec MV E/A: 0.76 PA mean P.5 mmHg Med Peak E' Vazquez: 5.2 cm/sec PA pr(Accel): 29.2 mmHg E/E' med: 19.6 Lat Peak E' Vazquez: 5.9 cm/sec E/E' lat: 17.1 E/e' average: 18.3 MV dec time: 0.22 sec SV(OT): 105.5 ml Electronically signed by: Megan Vasquez on Reading Physician:08/03/2020 02:28 PM
[2020-08-03 08:23] LABS: Troponin I 0.076 ng/mL (0.01-0.034)
[2020-08-03] MEDS: cefTRIAXone 1,000 MG in SODIUM CHLORIDE 0.9% 100 ML 200 ML IV (11:12)
--- NOTE | 2020-08-03 11:30 | P.HP_ITS ---
History of Present Illness History of Present Illness Date Patient Seen: 08/03/20 Time Patient Seen: 11:30 Chief complaint: Chest tightness rapid heart beat Narrative: This is a 80-year-old male with a past medical history of type 1 diabetes, rheumatoid arthritis on hydroxychloroquine and sulfasalazine, hypertension, hyperlipidemia who arrived from the [facility] late last night and has been having fevers, weight loss, shortness of breath with exertion and c hest pain / pressure. Patient states for the past 2 and half months he has been having on and off fevers as well as that 10-12 lb weight loss. He has had worsening dyspnea on exertion and pleuritic chest pain on the left. He also has been experiencing chest pressure and shortness of breath with exertion which has been waxing in waning but generally progressing over this time frame. His fevers have been worse the past 3-5 days, peaking initially he said at 104 but he generally stated in the 101-102 range. This is improved over the past couple of days but the chest pain and pressure have continued. His pleuritic chest pain is described as left-sided, worse with inspiration, and primarily in the left upper chest and back area. He has also had separate chest pressure with exertion which has also been waxing and waning over the past 3-4 weeks. He is able to walk about 100 yd now before getting short of breath, where as before he had unlimited exercise tolerance. In the emergency room, the patient was afebrile, with the remainder of his vital signs also being unremarkable. Initial laboratory evaluation showed a mild leukocytosis with WBC of 14.3, hemoglobin was 9.9, and platelet count was 410. No prior labs are available for review currently. D-dimer was elevated at 894. Chemistries showed a glucose of 185, but no other significant abnormalities. Troponin was elevated at 0.076 and proBNP was mildly elevated at 903. Procalcitonin was indeterminate 0.28. COVID-19 testing was negative. Patient History Medical History (Updated 08/03/20 @ 10:42 by Luz Marina Mcdonald RN) Cataract COPD (chronic obstructive pulmonary disease) Diabetes History of colon polyps Ingrowing toenail of left foot Surgical History (Updated 08/03/20 @ 10:42 by Luz Marina Mcdonald RN) History of cataract surgery Total knee replacement status Family & Social History Social History: household members spouse,family Prior Living Arrangements House Safety & Behavioral: Feels Safe in Current Yes Environment Been Physically Hurt or No Threatened By a Person Suicidal Ideation Description None Suicide Plan Description No Plan Tobacco & Substance use: Smoking Status Never smoker alcohol intake former alcohol intake frequency other Substance Use Type does not use Meds Home Medications and Allergies Home Medications Medication Instructions Recorded Confirmed Type doxycycline hyclate 100 mg PO Q12H #20 cap 12/02/15 Rx Lantus Solostar U-100 Insulin 12 unit SUBCUT BEDTIME 04/04/20 08/03/20 History fluticasone propion-salmeterol 1 inh INHALATION DAILY 04/04/20 08/03/20 History [Advair Diskus] hydroxychloroquine 200 mg PO BID 04/04/20 08/03/20 History insulin aspart U-100 [Novolog 6 unit SUBCUT TIDWMEAL 04/04/20 08/03/20 History Flexpen U-100 Insulin] lisinopril 5 mg PO DAILY 04/04/20 08/03/20 History pravastatin 20 mg PO BEDTIME 04/04/20 08/03/20 History sulfasalazine 500 mg PO BID 08/03/20 08/03/20 History vitamin B complex [Vitamin B 1 tab PO DAILY 08/03/20 08/03/20 History Complex-100] Allergies Allergy/AdvReac Type Severity Reaction Status Date / Time shellfish derived AdvReac Verified 04/04/20 08:42 Review of Systems Review of Systems Narrative: All other systems reviewed with the patient and are negative unless otherwise stated. Exam Vital Signs (past 8 hours): - 08/03/20 05:00 08/03/20 05:09 08/03/20 05:30 Temperature 98.1 F Pulse Rate 100 H 96 H 94 H Respiratory Rate 26 H 29 H 25 H Blood Pressure 144/68 H 146/71 H Pulse Oximetry 97 95 96 08/03/20 05:56 08/03/20 06:00 08/03/20 06:32 Temperature Pulse Rate 89 86 93 H Respiratory Rate 19 20 19 Blood Pressure 127/64 133/64 Pulse Oximetry 96 96 96 08/03/20 06:33 08/03/20 07:00 08/03/20 07:30 Temperature Pulse Rate 92 H 86 87 Respiratory Rate 24 29 H 23 Blood Pressure 140/69 119/61 117/59 L Pulse Oximetry 97 95 94 08/03/20 08:00 08/03/20 08:30 08/03/20 09:00 Temperature Pulse Rate 90 87 84 Respiratory Rate 21 21 20 Blood Pressure 136/64 115/69 114/62 Pulse Oximetry 93 95 93 08/03/20 09:45 Temperature 98.5 F Pulse Rate 90 Respiratory Rate 16 Blood Pressure 144/60 H Pulse Oximetry 94 Oxygen Delivery Method Room Air Narrative Exam Narrative: GENERAL APPEARANCE: Well developed, pleasant but mildly acutely ill-appearing elderly male, in no acute distress SKIN: Inspection of the skin reveals no rashes, ulcerations or petechiae. HEENT: Normocephalic atraumatic, extraocular muscles are intact, oropharynx is clear and mucous membranes are moist, neck is supple without adenopathy NECK: Supple and symmetric. There was no thyroid enlargement, and no tenderness, or masses were felt. CHEST: Normal AP diameter and normal contour without any kyphoscoliosis. LUNGS: Auscultation of the lungs revealed diminished breath sounds bilateral lung bases with diffuse rales R > L. CARDIOVASCULAR: There was a regular rate and rhythm without any murmurs, gallops, rubs. Diminshed heart sounds. Peripheral pulses were 2+ and symmetric. ABDOMEN: Soft and nontender with normal bowel sounds. No ascites was noted. MUSCULOSKELETAL: There was no tenderness or effusions noted. Muscle strength and tone were normal. EXTREMITIES: No cyanosis, clubbing or edema. NEUROLOGIC: Alert and oriented x 3. Normal affect. Strength is +5/5 in the Upper Extremities and Lower Extremities Bilaterally. Sensation to touch was normal. Objective ECG Impression: Normal sinus rhythm with low-voltage, but no electrical alternans and no ST abnormalities Imaging Chest x-ray: Radiologist's impression: PROCEDURE: XR CHEST 1V INDICATIONS: chest pain TECHNIQUE: One view of the chest was acquired. COMPARISON: None. FINDINGS: Surgical changes and devices: None. Lungs and pleura: Peripheral opacities are seen in the right lung most prominent at the apex with bilateral interstitial prominence. There is no pneumothorax. No defi nite pleural effusions are seen on the separate image, but pleural effusions are noted on the subsequently performed CT. Mediastinum: Mediastinal contours appear normal. Cardiac silhouette is mildly enlarged, with pericardial effusion noted on subsequent CT. Bones and chest wall: No suspicious bony lesions. Overlying soft tissues appear unremarkable. Severe degenerative changes are seen in the left shoulder. IMPRESSION: Right lung consolidations are most prominent in the peripheral right lung apex. Please see the report from the subsequently performed CT pulmonary angiogram for more detailed review of thoracic findings. There is no significant discrepancy when compared to the overnight Teleradiology report. CT scan - chest: Radiologist's impression: PROCEDURE: CT ANGIO CHEST PE PROTOCOL INDICATIONS: chest pain, shortness of breath TECHNIQUE: After the administration of intravenous contrast, 2 mm thick sections acquired from the pulmonary apices to the posterior costophrenic angles. 3-dimensional maximum intensity projection (MIP) coronal and sagittal reformats were then acquired through the t horax. For radiation dose reduction, the following was used: automated exposure control, adjustment of mA and/or kV according to patient size. COMPARISON: [facility], , XR CHEST 1V, 08/03/2020, 5:00. FINDINGS: Image quality: Excellent. Pulmonary arteries: Pulmonary arteries are normal in size, and demonstrate no intraluminal filling defects to suggest central pulmonary embolism. Lungs and pleura: Right upper lobe consolidation. Patchy airspace infiltrates in right middle lobe and right lower lobe, as well as left lung. There are bilateral pleural effusions, moderate on the right and small on the left. No pneumothorax. Central and peripheral airways are patent. Small subcentimeter nodules are noted bilaterally. Nodule 1: 7 mm; RML; Series 5, image 214. Nodule 2: 6 mm; LLL; series 5, image 253. Mediastinum: Heart size is normal. There is tzdzfsnh-ti-tfidt-sized pericardial effusion. Ztopfrpz-dt-vduycp coronary artery calcification. There are enlarged mediastinal or right hilar lymph nodes. For example, there is a 1.5 cm right paratracheal lymph node and a 1.5 x 2.2 cm subcarinal lymph node. A 2.2 cm right hilar lymph node is identified. Thoracic aorta is normal in caliber and enhancement. Esophagus is normal in caliber. Small hiatal hernia. Bones and chest wall: No suspicious bony lesions. Degenerative changes in thoracic and upper lumbar spine. Ribs and thoracic spine appear intact throughout. Thyroid gland is normal. No axillary or supraclavicular adenopathy. Abdomen: Visualized upper abdominal solid organs appear normal in the early arterial phase of enhancement. IMPRESSION: 1. No evidence for pulmonary embolism. 2. Bilateral patchy infiltrates and right upper lobe consolidation consistent with pneumonia. 3. Mediastinal and right hilar lymphadenopathy. 4. Small pulmonary nodules bilaterally. Recommend CT follow-up in 3 months. Please see enclosed follow-up recommendation. 5. Yljxxipd-zd-futjy pericardial effusion. 6. Bilateral pleural effusions, moderate on the right and small on the left. Labs Result Diagrams: 08/03/20 05:20 08/03/20 05:20 Labs: Laboratory Results - last 24 hr 08/03/20 08/03/20 08/03/20 05:20 05:20 05:20 WBC 14.3 H RBC 3.30 L Hgb 9.9 L Hct 29.8 L MCV 90.4 MCH 30.0 MCHC 33.2 RDW 14.5 Plt Count 410 H Neut % (Auto) 71.4 Lymph % (Auto) 4.7 L Shannon % (Auto) 5.0 Eos % (Auto) 18.7 H Baso % (Auto) 0.2 Neut # (Auto) 97088 H Lymph # (Auto) 700 L Shannon # (Auto) 700 Eos # (Auto) 2700 H Baso # (Auto) 0 D-Dimer Sodium 135 L Potassium 4.2 Chloride 106 Carbon Dioxide 21 L BUN 28 H Creatinine 0.92 Estimated GFR > 60.0 BUN/Creatinine Ratio 30.4 H Glucose 185 H Calcium 9.6 Total Bilirubin 0.4 AST 34 ALT 25 Alkaline Phosphatase 99 Total Creatine Kinase 85 CK-MB (CK-2) TNP CK-MB (CK-2) Rel Index TNP Troponin I 0.061 H NT-Pro-B Natriuret Pep Total Protein 7.3 Albumin 3.3 L Globulin 4.0 Albumin/Globulin Ratio 0.8 L Lipase 18 L Procalcitonin SARS-CoV-2 (PCR) 08/03/20 08/03/20 08/03/20 05:20 05:20 05:25 WBC RBC Hgb Hct MCV MCH MCHC RDW Plt Count Neut % (Auto) Lymph % (Auto) Shannon % (Auto) Eos % (Auto) Baso % (Auto) Neut # (Auto) Lymph # (Auto) Shannon # (Auto) Eos # (Auto) Baso # (Auto) D-Dimer Sodium Potassium Chloride Carbon Dioxide BUN Creatinine Estimated GFR BUN/Creatinine Ratio Glucose Calcium Total Bilirubin AST ALT Alkaline Phosphatase Total Creatine Kinase CK-MB (CK-2) CK-MB (CK-2) Rel Index Troponin I NT-Pro-B Natriuret Pep 903 H Total Protein Albumin Globulin Albumin/Globulin Ratio Lipase Procalcitonin 0.28 SARS-CoV-2 (PCR) Negative 08/03/20 08/03/20 05:48 07:37 WBC RBC Hgb Hct MCV MCH MCHC RDW Plt Count Neut % (Auto) Lymph % (Auto) Shannon % (Auto) Eos % (Auto) Baso % (Auto) Neut # (Auto) Lymph # (Auto) Shannon # (Auto) Eos # (Auto) Baso # (Auto) D-Dimer 894 H Sodium Potassium Chloride Carbon Dioxide BUN Creatinine Estimated GFR BUN/Creatinine Ratio Glucose Calcium Total Bilirubin AST ALT Alkaline Phosphatase Total Creatine Kinase CK-MB (CK-2) CK-MB (CK-2) Rel Index Troponin I 0.076 H NT-Pro-B Natriuret Pep Total Protein Albumin Globulin Albumin/Globulin Ratio Lipase Procalcitonin SARS-CoV-2 (PCR) Assessment & Plan Assessment & Plan narrative: 1. Pericardial effusion 2. Elevated troponin 3. Pleural effusion 4. Rheumatoid arthritis 5. HTN 6. HLD Code: Full Isolation: airborne, TB rule out Dispo: admit as inpatient COVID 19 - negaative.
--- NOTE | 2020-08-03 13:17 | PC.NURSE ---
Patient has been moved to room 219 for negative pressure room. He is a rule out TB. Patient is pleasant. Ordered a diet and called down to have brought up, he is a carb consistent diet. Latest blood sugar 196. Patient takes his own blood sugars and has called to bring in his blood sugar sensor. He denies pain and is not coughing. No choking issues noted.
[2020-08-03] MEDS: SODIUM CHLORIDE 0.9% 1,000 ML 100 ML IV (13:44)
[2020-08-03 14:01] LABS: Troponin I 0.065 ng/mL (0.01-0.034)
--- NOTE | 2020-08-03 15:50 | P.DS_ITS ---
History of Present Illness History of Present Illness Chief complaint: Chest tightness rapid heart beat Narrative: This is a 80-year-old male with a past medical history of type 1 diabetes, rheumatoid arthritis on hydroxychloroquine and sulfasalazine, hypertension, hyperlipidemia who arrived from the [facility] late last night and has been having fevers, weight loss, shortness of breath with exertion and chest pain / pressure. Patient states for the past 2 and half months he has been having on and off fevers as well as that 10-12 lb weight loss. He has had worsening dyspnea on exertion and pleuritic chest pain on the left. He also has been experiencing chest pressure and shortness of breath with exertion which has been waxing in waning but generally progressing over this time frame. His fevers have been worse the past 3-5 days, peaking initially he said at 104 but he generally stated in the 101-102 range. This is improved over the past couple of days but the chest pain and pressure have continued. His pleuritic chest pain is described as left-sided, worse with inspiration, and primarily in the left upper chest and back area. He has also had separate chest pressure with exertion which has also been waxing and waning over the past 3-4 weeks. This will come in waves over a 3-5 day time frame and then rhoda. He is able to walk about 100 yd now before getting short of breath, where as before he had unlimited exercise tolerance. In the emergency room, the patient was afebrile, with the remainder of his vital signs also being unremarkable. Initial laboratory evaluation showed a mild leukocytosis with WBC of 14.3, hemoglobin was 9.9, and platelet count was 410. No prior labs are available for review currently. D-dimer was elevated at 894. Chemistries showed a glucose of 185, but no other significant abnormalities. Troponin was elevated at 0.076 and proBNP was mildly elevated at 903. Procalcitonin was indeterminate 0.28. COVID-[address] angiogram and imaging as noted below. Discharge Providers Provider Date of admission: 08/03/20 09:21 Discharge Date: 08/03/20 Primary care physician: Cici Jones MD Consults: 08/03/20 10:11 Consult to Dietitian, Adult Routine Comment: Reason For Exam: Weight loss 12 pounds Discharge provider: Eugene Cintron DO Summary Hospital Course Discharge Diagnosis: 1. Pericardial effusion with possible cardiac tamponade 2. Elevated troponin, improved 3. Pleural effusion 4. Rheumatoid arthritis 5. HTN 6. HLD 7. Type 1 diabetes Hospital Course: 1. Pericardial effusion with possible tamponade - TTE obtained showed evidence of possible early cardiac tamponade, recommended transfer to [facility] by bulk plant supervisor reading TTE Dr. Hamilton. no evidence of volume overload on exam, vitals currently stable. Source may be infectious, rheumatologic, malignant, or from heart failure, though heart failure appears to be less likely at this time. -accepted to hospitalist service, Dr. Jerry at [facility]. -given continued fevers, recent weight loss, right upper lobe consolidation, and cough although no hemoptysis it is quite reasonable this could be due to tuberculosis especially given his recent travel history. have placed on airborne precautions. -discussed with ID physician at [facility], recommended TB rule out 1st with Sputum PCR x2. Blood cultures ordered here. Recommended continuation of ceftriaxone, first dose given here. -rhematoid workup including ESR, CRP, rheumatoid factor given history was ordered however these have not been collected at the time of transfer, would check at accepting hospital. -held hydroxychloroquine and sulfasalazine. - CT angiogram of his chest did not reveal evidence of pulmonary embolism but did show bilaterally patchy infiltrates in the right upper lobe consolidation as well as mediastinal and right hilar lymphadenopathy, small pulmonary nodules bilaterally, moderate to large pericardial effusion and bilateral pleural effusions larger on the right compared to the left. 2. Elevated troponin, improved - peaked at 0.065 then downtrended. Did have chest pressure on and off but no evidence of ischemia on EKG. Does show low voltage. - may be secondary to a myocardititis given the above. - continue above therapies. 3. Pleural effusion, bilateral - differential as noted above. Placed on airborne for TB rule out. Ideally would consider thoracentesis however if this is TB this can be somewhat risky. rule out sputums first prior to further evaluation. 4. Rheumatoid arthritis - hold home medications as noted above given possible active infection. 5. HTN - hold home medications 6. HLD - can continue home statin. 7. type 1 diabetes - appears well controlled, he has a CGM in place. Takes 6 U TID lispro with meals, 12-13 units of long acting at night. Code: Full, surrogate decision maker is the patient's . Isolation: airborne, TB rule out Dispo: transfer to [facility] COVID 19 - negative. Exam Vital Signs (past 8 hours): - 08/03/20 08:00 08/03/20 08:30 08/03/20 09:00 Temperature Pulse Rate 90 87 84 Respiratory Rate 21 21 20 Blood Pressure 136/64 115/69 114/62 Pulse Oximetry 93 95 93 08/03/20 09:45 08/03/20 12:48 Temperature 98.5 F 98.9 F Pulse Rate 90 93 H Respiratory Rate 16 14 Blood Pressure 144/60 H 123/64 Pulse Oximetry 94 93 Oxygen Delivery Method Room Air Oxygen Flow Rate 0 Narrative Exam Narrative: GENERAL APPEARANCE: Well developed, pleasant but mildly acutely ill-appearing elderly male, in no acute distress SKIN: Inspection of the skin reveals no rashes, ulcerations or petechiae. HEENT: Normocephalic atraumatic, extraocular muscles are intact, oropharynx is clear and mucous membranes are moist, neck is supple without adenopathy NECK: Supple and symmetric. There was no thyroid enlargement, and no tenderness, or masses were felt. CHEST: Normal AP diameter and normal contour without any kyphoscoliosis. LUNGS: Auscultation of the lungs revealed diminished breath sounds bilateral lung bases with diffuse rales R > L. CARDIOVASCULAR: There was a regular rate and rhythm without any murmurs, gallops, rubs. Diminshed heart sounds. Peripheral pulses were 2+ and symmetric. ABDOMEN: Soft and nontender with normal bowel sounds. No ascites was noted. MUSCULOSKELETAL: There was no tenderness or effusions noted. Muscle strength and tone were normal. EXTREMITIES: No cyanosis, clubbing or edema. NEUROLOGIC: Alert and oriented x 3. Normal affect. Strength is +5/5 in the Upper Extremities and Lower Extremities Bilaterally. Sensation to touch was normal. Objective Imaging CT scan - chest: Radiologist's impression: Chest x-ray: Radiologist's impression: PROCEDURE: XR CHEST 1V INDICATIONS: chest pain TECHNIQUE: One view of the chest was acquired. COMPARISON: None. FINDINGS: Surgical changes and devices: None. Lungs and pleura: Peripheral opacities are seen in the right lung most prominent at the apex with bilateral interstitial prominence. There is no pneumothorax. No definite pleural effusions are seen on the separate image, but pleural effusions are noted on the subsequently performed CT. Mediastinum: Mediastinal contours appear normal. Cardiac silhouette is mildly enlarged, with pericardial effusion noted on subsequent CT. Bones and chest wall: No suspicious bony lesions. Overlying soft tissues appear unremarkable. Severe degenerative changes are seen in the left shoulder. IMPRESSION: Right lung consolidations are most prominent in the peripheral right lung apex. Please see the report from the subsequently performed CT pulmonary angiogram for more detailed review of thoracic findings. There is no significant discrepancy when compared to the overnight Teleradiology report. CT scan - chest: Radiologist's impression: PROCEDURE: CT ANGIO CHEST PE PROTOCOL INDICATIONS: chest pain, shortness of breath TECHNIQUE: After the administration of intravenous contrast, 2 mm thick sections acquired from the pulmonary apices to the posterior costophrenic angles. 3-dimensional maximum intensity projection (MIP) coronal and sagittal reformats were then acquired through the thorax. For radiation dose reduction, the following was used: automated exposure control, adjustment of mA and/or kV according to patient size. COMPARISON: [facility], CR, XR CHEST 1V, 08/03/2020, 5:00. FINDINGS: Image quality: Excellent. Pulmonary arteries: Pulmonary arteries are normal in size, and demonstrate no intraluminal filling defects to suggest central pulmonary embolism. Lungs and pleura: Right upper lobe consolidation. Patchy airspace infiltrates in right middle lobe and right lower lobe, as well as left lung. There are bilateral pleural effusions, moderate on the right and small on the left. No pneumothorax. Central and peripheral airways are patent. Small subcentimeter nodules are noted bilaterally. Nodule 1: 7 mm; RML; Series 5, image 214. Nodule 2: 6 mm; LLL; series 5, image 253. Mediastinum: Heart size is normal. There is wedrturn-og-mrfqd-sized pericardial effusion. Qwcnpapc-sy-iuolat coronary artery calcification. There are enlarged mediastinal or right hilar lymph nodes. For example, there is a 1.5 cm right paratracheal lymph node and a 1.5 x 2.2 cm subcarinal lymph node. A 2.2 cm right hilar lymph node is identified. Thoracic aorta is normal in caliber and enhancement. Esophagus is normal in caliber. Small hiatal hernia. Bones and chest wall: No suspicious bony lesions. Degenerative changes in thoracic and upper lumbar spine. Ribs and thoracic spine appear intact throughout. Thyroid gland is normal. No axillary or supraclavicular adenopathy. Abdomen: Visualized upper abdominal solid organs appear normal in the early arterial phase of enhancement. IMPRESSION: 1. No evidence for pulmonary embolism. 2. Bilateral patchy infiltrates and right upper lobe consolidation consistent with pneumonia. 3. Mediastinal and right hilar lymphadenopathy. 4. Small pulmonary nodules bilaterally. Recommend CT follow-up in 3 months. Please see enclosed follow-up recommendation. 5. Xwtbcnai-zg-wdhiw pericardial effusion. 6. Bilateral pleural effusions, moderate on the right and small on the left. Labs Result Diagrams: 08/03/20 05:20 08/03/20 05:20 Labs: Laboratory Results - last 24 hr 08/03/20 08/03/20 08/03/20 05:20 05:20 05:20 WBC 14.3 H RBC 3.30 L Hgb 9.9 L Hct 29.8 L MCV 90.4 MCH 30.0 MCHC 33.2 RDW 14.5 Plt Count 410 H Neut % (Auto) 71.4 Lymph % (Auto) 4.7 L Billings % (Auto) 5.0 Eos % (Auto) 18.7 H Baso % (Auto) 0.2 Neut # (Auto) 43966 H Lymph # (Auto) 700 L Billings # (Auto) 700 Eos # (Auto) 2700 H Baso # (Auto) 0 D-Dimer Sodium 135 L Potassium 4.2 Chloride 106 Carbon Dioxide 21 L BUN 28 H Creatinine 0.92 Estimated GFR > 60.0 BUN/Creatinine Ratio 30.4 H Glucose 185 H Calcium 9.6 Total Bilirubin 0.4 AST 34 ALT 25 Alkaline Phosphatase 99 Total Creatine Kinase 85 CK-MB (CK-2) TNP CK-MB (CK-2) Rel Index TNP Troponin I 0.061 H NT-Pro-B Natriuret Pep Total Protein 7.3 Albumin 3.3 L Globulin 4.0 Albumin/Globulin Ratio 0.8 L Lipase 18 L Procalcitonin SARS-CoV-2 (PCR) 08/03/20 08/03/20 08/03/20 05:20 05:20 05:25 WBC RBC Hgb Hct MCV MCH MCHC RDW Plt Count Neut % (Auto) Lymph % (Auto) Billings % (Auto) Eos % (Auto) Baso % (Auto) Neut # (Auto) Lymph # (Auto) Billings # (Auto) Eos # (Auto) Baso # (Auto) D-Dimer Sodium Potassium Chloride Carbon Dioxide BUN Creatinine Estimated GFR BUN/Creatinine Ratio Glucose Calcium Total Bilirubin AST ALT Alkaline Phosphatase Total Creatine Kinase CK-MB (CK-2) CK-MB (CK-2) Rel Index Troponin I NT-Pro-B Natriuret Pep 903 H Total Protein Albumin Globulin Albumin/Globulin Ratio Lipase Procalcitonin 0.28 SARS-CoV-2 (PCR) Negative 08/03/20 08/03/20 08/03/20 05:48 07:37 13:29 WBC RBC Hgb Hct MCV MCH MCHC RDW Plt Count Neut % (Auto) Lymph % (Auto) Billings % (Auto) Eos % (Auto) Baso % (Auto) Neut # (Auto) Lymph # (Auto) Billings # (Auto) Eos # (Auto) Baso # (Auto) D-Dimer 894 H Sodium Potassium Chloride Carbon Dioxide BUN Creatinine Estimated GFR BUN/Creatinine Ratio Glucose Calcium Total Bilirubin AST ALT Alkaline Phosphatase Total Creatine Kinase CK-MB (CK-2) CK-MB (CK-2) Rel Index Troponin I 0.076 H 0.065 H NT-Pro-B Natriuret Pep Total Protein Albumin Globulin Albumin/Globulin Ratio Lipase Procalcitonin SARS-CoV-2 (PCR) [facility] Medical History (Updated 08/03/20 @ 10:42 by Luz Marina Mcdonald RN) Cataract COPD (chronic obstructive pulmonary disease) Diabetes History of colon polyps Ingrowing toenail of left foot Surgical History (Updated 08/03/20 @ 10:42 by Luz Marina Mcdonald RN) History of cataract surgery Total knee replacement status Social History household members: spouse and family Smoking Status: Never smoker alcohol intake: former Discharge Plan Discharge Plan Disposition: Xfer Acute Care Hospital Discharge orders & Medications Follow up/Referrals: Cici Jones MD [Primary Care Provider] - Discharge Data Primary Care Provider: Cici Jones Attending Provider: Eugene Cintron
[2020-08-03 16:33] LABS: C-Reactive Protein Quant 4.4 mg/dL (<1.0)
[2020-08-03 16:36] LABS: Erythrocyte Sedimentation Rate 73 MM/HR (0-15)
[2020-08-03 16:47] LABS: Rheumatoid Factor 168.6 IU/mL (<12.0)
[2020-08-03] MEDS: INSULIN LISPRO 100 UNIT/ML 3ML VIAL 10 UNIT SUBCUT (17:39)
--- NOTE | 2020-08-03 17:49 | PC.NURSE ---
1600 Pt aware being transferred to [facility] for further care. Assisted pt to make phone call to spouse to inform. Vital signs taken and recorded. Pt is alert, awake, conversant and without respiratory distress. Able to make needs and wants known to staff. Consent for transfer signed. Medics arrive for transport and pt notifies staff with self check blood sugar is 432. Pt rechecked with hospital glucometer for 457. Dr. Cintron was informed. Treated with 10 units Lispro SQ per Dr. Cintron. Medics and pt are aware of this action as well as receiving nurse Sofya from [facility] ICU. Complete report given to receiving nurse, Sofya. Okay to transport per Dr. Cintron and franciscoay to receive per Sofya. Pt left hospital via ambulance awake, alert, conversant. 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
== END 2020-08-03 17:45 | disposition short-term general hospital (02) | DRG 315 ==
LOC: ED 08:04 → AC 09:37
PROVIDERS: Emergency Medicine; Admitting Provider Internal Medicine; Emergency Provider Emergency Medicine; PCP Internal Medicine; Referring Provider Emergency Medicine; Visit Provider Internal Medicine
DX: I31.3 Pericardial effusion (noninflammatory) (principal); J90 Pleural effusion, not elsewhere classified; I31.4 Cardiac tamponade; M06.9 Rheumatoid arthritis, unspecified; I10 Essential (primary) hypertension; E78.5 Hyperlipidemia, unspecified; E10.9 Type 1 diabetes mellitus without complications; Z79.4 Long term (current) use of insulin; Z20.822 Contact with and (suspected) exposure to COVID-19
CPT/HCPCS: 36415; 71045; 71275; 80053; 82550; 82962; 83690; 83880; 84145; 84484; 85025; 85379; 85651; 86140; 86430; 87040; 87635; 93005; 93306; 96365; 99285; C9803; G0378; J0696; J1815; Q9967

== ENCOUNTER → 2021-02-04 07:54 | Outpatient (CLI) | payer MEDICARE, SELFPAY ==
[2020-08-03 09:42] VITALS: BMI 20.9
--- NOTE | 2021-02-04 | DI.ECHO.S_ITS ---
[place] +---------+ Hospital +---------+ : : [address] : : : : [id number] : : : : Phone: [phone]---------+ Echocardiogram Report + + :Name: SANAZ MENG Study Date: 02/04/2021 Height: 71 in : :[facility] ReadingLocation: Weight: 162 lb : : Gender: Male BSA: 1.9 m2 : :: 1940 Age: 81 yrs BP: 142/73 mmHg: :Reason For Study: PERICARDIAL EFFUSION : :Ordering Physician: CHRISTOPHER, : :BETSY Performed By: Thelma Shepard : :Referring: BETSY WHITE : + + Interpretation Summary Left ventricular wall thickness is mildly increased. The ejection fraction is estimated to be 60-65%. Grade II diastolic dysfunction. The left atrium is mildly dilated. The right ventricle is normal in size and function. No significant valvular abnormalities. Unable to estimate PASP. There is a moderate sized pericardial effusion without evidence of tamponade. Compared to the prior study dated 11/16/2020, the pericardial effusion appears slightly smaller but still consistent with moderate in size. Procedure: A two-dimensional transthoracic echocardiogram with color flow and Doppler was performed. The study quality was technically adequate. Comparison is made with the echocardiogram of 11/16/2020. The patient was in sinus rhythm with heart rates between 85-96 bpm during the exam. Left Ventricle: The left ventricle is normal in size. Left ventricular wall thickness is mildly increased. The ejection fraction is estimated to be 60- 65%. Grade II diastolic dysfunction. Right Ventricle: The right ventricle is normal in size and function. Atria: The left atrium is mildly dilated. Right atrial size is normal. There is no Doppler evidence for an interatrial shunt. Mitral Valve: The mitral valve leaflets appear normal. There is no evidence of stenosis, fluttering, or prolapse. There is moderate mitral annular calcification. There is trace mitral regurgitation. Aortic Valve: The aortic valve is trileaflet. The aortic valve is slightly calcified. There is no aortic valve stenosis. No aortic regurgitation is present. Tricuspid Valve: The tricuspid valve is normal in structure and function. No tricuspid regurgitation. Pulmonary artery pressures cannot be estimated because of the lack of a measurable TR jet velocity. Pulmonic Valve: The pulmonic valve is not well visualized. There is no pulmonic valvular regurgitation. Great Vessels: The aortic root is normal size. The ascending aorta is at the upper limits of normal in size. The IVC is of normal diameter and collapses greater than 50% with a sniff. This suggests a low right atrial pressure of 3 mm Hg. Pericardium/ Pleura There is a moderate pericardial effusion noted. There are no echocardiographic indications of cardiac tamponade. MMode/2D Measurements & Calculations LVIDd: 5.0 cm LVOT diam: 2.2 cm LVIDs: 3.2 cm Ao root diam: 3.6 cm FS: 35.7 % asc Aorta Diam: 3.5 cm IVSd: 0.92 cm Ao Arch Diam (Prox Trans): 3.2 cm LVPWd: 1.2 cm LV espino. diameter/BSA (cm/m^2): 2.6 LV sys. diameter/BSA (cm/m^2): 1.7 LA A2 area: 21.2 cm2 RA long axis: 4.8 cm LA A4 area: 20.9 cm2 RA area: 16.1 cm2 LA length (vol): 5.1 cm RA vol: 46.0 ml LA vol: 73.3 ml RA : 23.9 ml/m2 LA vol index: 38.0 ml/m2 RVD1 (basal): 3.2 cm RVD2 (mid): 2.9 cm TAPSE: 1.9 cm Doppler Measurements & Calculations Ao V2 max: 132.8 cm/sec LVOT Max Vazquez: 106.2 cm/sec Ao V2 mean: 95.7 cm/sec LV V1 max P.5 mmHg Ao max P.1 mmHg LV V1 VTI: 28.1 cm Ao mean P.1 mmHg KYLE(I,D): 4.2 cm2 Ao V2 VTI: 26.2 cm KYLE(V,D): 3.1 cm2 sev ratio: 1.1 KYLE indexed to BSA (cm^2/m^2): 2.2 MV E max vazquez: 80.6 cm/sec PA V2 max: 119.9 cm/sec MV A max vazquez: 132.5 cm/sec PA V2 mean: 77.8 cm/sec MV E/A: 0.61 PA mean P.8 mmHg Med Peak E' Vazquez: 6.4 cm/sec PA pr(Accel): 29.3 mmHg E/E' med: 12.5 Lat Peak E' Vazquez: 5.7 cm/sec E/E' lat: 14.1 E/e' average: 13.3 MV dec time: 0.20 sec SV(LVOT): 110.2 ml Reading Physician:01:43 PM
== END ==
PROVIDERS: PCP Internal Medicine; Referring Provider Nurse Practitioner Acute Care; Visit Provider Nurse Practitioner Acute Care
DX: I31.3 Pericardial effusion (noninflammatory) (principal)
CPT/HCPCS: 93306

== ENCOUNTER → 2021-02-21 11:00 | Outpatient (CLI) | payer MEDICARE, SELFPAY ==
[2020-08-03 09:42] VITALS: BMI 20.9
[2021-02-21 12:46] LABS: BUN Creatinine Ratio 22.2 (6-22); Blood Urea Nitrogen 26 mg/dL (9-20); Calcium 9.3 mg/dL (8.4-10.2); Carbon Dioxide 27 mmol/L (22-32); Chloride 105 mmol/L (98-107); Estimated Glomerular Filt Rate > 60.0 mL/min (>60); Glucose 239 mg/dL (80-110); HEMOLYSIS < 15 (0-50); Potassium 5.3 mmol/L (3.4-5.1); Sodium 140 mmol/L (137-145)
== END ==
PROVIDERS: PCP Internal Medicine; Referring Provider Internal Medicine Cardiovascular Disease; Visit Provider Internal Medicine Cardiovascular Disease
DX: N28.9 Disorder of kidney and ureter, unspecified (principal)
CPT/HCPCS: 36415; 80048

== ENCOUNTER → 2021-08-19 12:13 | Outpatient (CLI) | payer MEDICARE, SELFPAY ==
[2020-08-03 09:42] VITALS: BMI 20.9
--- NOTE | 2021-08-19 12:45 | DI.ECHO.S_ITS ---
+ + Interpretation Summary The ejection fraction is estimated to be 60-65%. Diastolic function is indeterminate. The right ventricle is normal in size and function. No significant valvular abnormalities. Unable to estimate PASP. There is a moderate pericardial effusion without evidence of tamponade. Compared to the prior study dated 02/04/2021, no significant change. Procedure: A two-dimensional transthoracic echocardiogram with color flow and Doppler was performed. The study quality was technically adequate. Comparison is made with the echocardiogram of 02/04/2021. Left Ventricle: The left ventricle is normal in size and wall thickness. Left ventricular systolic function is normal. The ejection fraction is estimated to be 60-65%. There are no focal wall motion abnormalities. Diastolic function could not be accurately assessed due to unobtainable data. Right Ventricle: The right ventricle is normal in size and function. Atria: Both atria are normal in size. The interatrial septum grossly appears intact with no obvious evidence for an atrial septal defect. Mitral Valve: There is moderate mitral annular calcification. There is no mitral regurgitation noted. Aortic Valve: There is mild aortic valve sclerosis. There is no aortic valve stenosis. No aortic regurgitation is present. Tricuspid Valve: The tricuspid valve is normal in structure and function. There is trace tricuspid regurgitation. Pulmonary artery pressures cannot be estimated because of the lack of a measurable TR jet velocity. Pulmonic Valve: The pulmonic valve is normal in structure and function. There is no pulmonic valvular regurgitation. Great Vessels: The aortic root is normal size. The dimensions of the ascending aorta are normal. The IVC is of normal diameter and collapses greater than 50% with a sniff. This suggests a low right atrial pressure of 3 mm Hg. Pericardium/ Pleura There is a moderate pericardial effusion noted. There are no echocardiographic indications of cardiac tamponade. This is unchanged compared to the previous study. MMode/2D Measurements & Calculations LVIDd: 4.8 cm LVOT diam: 2.0 cm LVIDs: 3.1 cm Ao root diam: 3.6 cm FS: 35.4 % asc Aorta Diam: 3.4 cm IVSd: 0.90 cm LVPWd: 1.0 cm LV espino. diameter/BSA (cm/m^2): 2.5 LV sys. diameter/BSA (cm/m^2): 1.6 LA dimension: 2.7 cm RA long axis: 4.7 cm LA A2 area: 15.6 cm2 LA A4 area: 13.3 cm2 LA length (vol): 6.0 cm LA vol: 29.5 ml LA vol index: 15.6 ml/m2 TAPSE_phl: 2.1 cm Doppler Measurements & Calculations Ao V2 max: 119.0 cm/sec LVOT Max Vazquez: 106.0 cm/sec Ao V2 mean: 90.1 cm/sec LV V1 max P.5 mmHg Ao max P.0 mmHg LV V1 VTI: 21.6 cm Ao mean P.0 mmHg KYLE(I,D): 2.9 cm2 Ao V2 VTI: 23.3 cm KYLE(V,D): 2.8 cm2 sev ratio: 0.93 KYLE indexed to BSA (cm^2/m^2): 1.5 MV E max vazquez: 96.8 cm/sec SV(LVOT): 67.9 ml MV A max vazquez: 114.0 cm/sec MV E/A: 0.85 Med Peak E' Vazquez: 4.8 cm/sec E/E' med: 20.0 Lat Peak E' Vazquez: 4.0 cm/sec E/E' lat: 24.4 E/e' average: 22.2 MV dec time: 0.24 sec AV VR_phl: 0.89 MV P1/2t-pr_phl: 70.0 msec KYLE(VTI)/BSA_phl: 1.5 Reading Physician:09:59 AM
== END ==
PROVIDERS: PCP Internal Medicine; Referring Provider Internal Medicine Cardiovascular Disease; Visit Provider Internal Medicine Cardiovascular Disease
DX: I31.3 Pericardial effusion (noninflammatory) (principal); I35.8 Other nonrheumatic aortic valve disorders
CPT/HCPCS: 93306

== ENCOUNTER 2021-11-27 09:37 | Emergency (ER) | payer MEDICARE, SELFPAY ==
[2020-08-03 09:42] VITALS: BMI 20.9
[2021-11-27] VITALS (9 sets, daily range): BP systolic 126–150; BP diastolic 62–72; PULSE 88–97; RESP 20; TEMP 36.9; O2SAT 92–98; BMI 22.3
--- NOTE | 2021-11-27 09:58 | DI.RAD.S_ITS ---
PROCEDURE: XR CHEST 2V INDICATIONS: shortness of breath TECHNIQUE: 2 views of the chest were acquired. COMPARISON: [facility], CR, XR CHEST 1V, 08/03/2020, 5:00. FINDINGS: Surgical changes and devices: None. Lungs and pleura: Chronic emphysematous changes are seen. Mild pulmonary vascular congestion is seen. Subtle opacities in bilateral lower lung peraza are noted concerning for subtle patchy infiltrate/atelectasis. No pleural effusion or pneumothorax. Mediastinum: Mediastinal contours are normal. Heart size is normal. Bones and chest wall: Old healed right posterior lateral mid rib fractures are noted. No suspicious bony abnormalities. Soft tissues appear unremarkable. IMPRESSION: COPD and subtle patchy infiltrate/atelectasis in bilateral lower lung peraza. No pleural effusion or pneumothorax. Dictated by: Daniol Naik M.D. on 11/27/2021 at 10:34 Approved by: Danilo Naik M.D. on 11/27/2021 at 10:36
[2021-11-27 10:24] LABS: COVID19 -Nasal RAPID Negative (Negative)
[2021-11-27] MEDS: SODIUM CHLORIDE 0.9% 1,000 ML 1000 ML IV (10:28)
[2021-11-27 10:30] LABS: INR 1.1 (0.9-1.3); Prothrombin Time 12.8 SECONDS (10.1-12.7)
[2021-11-27 10:35] LABS: Add Manual Diff / Slide Review NO; Basophils Absolute Auto 100 /uL (0-100); Basophils Percent Auto 0.6 % (0-2); Eosinophils Absolute Auto 400 /uL (0-450); Eosinophils Percent Auto 4.1 % (2-4); Hematocrit 32.5 % (41-53); Hemoglobin 10.9 g/dL (13.5-17.5); Lymphocytes Absolute Auto 600 /uL (1100-4500); Mean Corpuscular HGB Conc 33.6 % (30-36); Mean Corpuscular Hemoglobin 32.8 PG (26-34); Mean Corpuscular Volume 97.6 fL (80-100); Monocytes Absolute Auto 400 /uL (0-900); Neutrophils Absolute Auto 7400 /uL (1500-7000); Neutrophils Percent Auto 83.3 % (50-75); Platelet Count 195 X10^3/uL (150-400); Red Blood Cell Count 3.33 X10^6/uL (4.5-5.9); Red Cell Distribution Width 14.7 % (11.6-14.8); White Blood Cell Count 8.8 X10^3/uL (4.5-11.0)
[2021-11-27 10:36] LABS: Alanine Aminotransferase 19 IU/L (<50); Albumin 3.9 g/dL (3.5-5.0); Albumin Globulin Ratio 1.1 (1.0-2.8); Alkaline Phosphatase 72 U/L (38-126); Aspartate Aminotransferase 29 IU/L (17-59); BUN Creatinine Ratio 21.2 (6-22); Bilirubin Total 0.7 mg/dL (0.2-1.3); Blood Urea Nitrogen 22 mg/dL (9-20); Carbon Dioxide 21 mmol/L (22-32); Chloride 102 mmol/L (98-107); Estimated Glomerular Filt Rate > 60 mL/min (>60); Globulin 3.7 g/dL (1.7-4.1); Glucose 208 mg/dL (80-110); HEMOLYSIS < 15 (0-50); Potassium 4.6 mmol/L (3.4-5.1); Sodium 135 mmol/L (137-145); Total Protein 7.6 g/dL (6.3-8.2)
[2021-11-27 10:38] LABS: Lactate (Lactic Acid) 1.1 mmol/L (0.7-2.1)
[2021-11-27 10:44] LABS: NT-proBNP (BNP-Adult 18+) 450 pg/mL (<450)
[2021-11-27 10:53] LABS: Procalcitonin 0.11 ng/mL (<0.5)
--- NOTE | 2021-11-27 11:00 | ED_ITS ---
HPI - SOB/Dyspnea General Chief Complaint: Shortness of Breath/Dyspnea Stated Complaint: Poss pnuemonia- brought by [facility] Time Seen by Provider: 11/27/21 11:00 Source: patient Mode of arrival: Wheelchair Limitations: no limitations History of Present Illness HPI Narrative: This 81-year-old gentleman has a history of hypertension, hyperlipidemia, diabetes, and asthma. Medical records over the last 2 years indicate a chronic pleural effusion. He presents with cough and progressive dyspnea for the last 4 days. He has a mild headache, and mild sore throat. He has no rhinorrhea. His cough is generally nonproductive. He has no hemoptysis. His no chest pain, no palpitations, he has no orthopnea or peripheral edema. Related Data Home Medications Medication Instructions Recorded Confirmed fluticasone 500 mcg-salmeterol 50 1 inh inhalation DAILY 04/04/20 08/03/20 mcg/dose blistr powdr for inhalation (Advair Diskus) hydroxychloroquine 200 mg tablet 200 mg PO BID 04/04/20 08/03/20 insulin aspart U-100 100 unit/mL 6 unit SUBCUT TIDWMEAL 04/04/20 08/03/20 (3 mL) subcutaneous pen (Novolog Flexpen U-100 Insulin aspart) insulin glargine 100 unit/mL (3 12 unit SUBCUT BEDTIME 04/04/20 08/03/20 mL) subcutaneous pen (Lantus Solostar U-100 Insulin) lisinopril 5 mg tablet 5 mg PO DAILY 04/04/20 08/03/20 pravastatin 20 mg tablet 20 mg PO BEDTIME 04/04/20 08/03/20 ferrous gluconate 324 mg (36 mg 324 mg PO DAILY 08/03/20 08/03/20 iron) tablet sulfasalazine 500 mg tablet 500 mg PO BID 08/03/20 08/03/20 vitamin B complex 1 tab PO DAILY 08/03/20 08/03/20 Previous Rx's Medication Instructions Recorded azithromycin 250 mg tablet 250 mg PO DAILY 4 days #4 tabs 11/27/21 (Zithromax) doxycycline hyclate 100 mg capsule 100 mg PO BID 7 days #14 caps 11/27/21 Allergies Allergy/AdvReac Type Severity Reaction Status Date / Time shellfish derived AdvReac Verified 11/27/21 09:58 Review of Systems Constitutional Constitutional: Denies body ache(s), Reports chills, Reports fatigue and Reports malaise Eyes Eyes: Denies irritation ENT Ears, Nose, Mouth, and Throat: Denies vertigo, Denies dizziness, Denies dry mouth, Denies facial pain, Denies sinus pain, Reports sore throat and Denies throat swelling Cardiovascular Cardiovascular: Denies chest pain, Denies rapid heart rate, Denies pedal edema, Denies leg edema and Reports dyspnea Respiratory Respiratory: Reports cough, Reports dyspnea, Denies stridor and Denies wheezing Gastrointestinal Gastrointestinal: Denies abdominal pain and Denies nausea Genitourinary Genitourinary: Denies dysuria Musculoskeletal Musculoskeletal: Denies arthralgias, Denies back pain and Denies myalgias Integumentary/Breasts Skin/Breast: Denies rash Neurologic Neurologic: Denies confusion, Denies vertigo and Denies dizziness Psychiatric Psychiatric: Denies anxiety and Denies confusion Endocrine Endocrine: Reports fatigue Hematologic/Lymphatic On Anticoagulants: No Allergic/Immunologic Allergic/Immunologic: Denies throat swelling and Denies wheezing Patient History Medical History Cataract COPD (chronic obstructive pulmonary disease) Diabetes History of colon polyps Ingrowing toenail of left foot Surgical History History of cataract surgery Total knee replacement status Social History household members: spouse and family Smoking Status: Never smoker alcohol intake: former Smoking Status: Never smoker alcohol intake frequency: other Substance Use Type: does not use Exam Initial Vital Signs Initial Vital Signs: Vital Signs Temperature 98.5 F 11/27/21 09:53 Pulse Rate 96 H 11/27/21 09:53 Respiratory Rate 20 11/27/21 09:53 Blood Pressure 129/62 11/27/21 09:53 Pulse Oximetry 93 11/27/21 09:53 Oxygen Delivery Method 11/27/21 09:53 Const General: cooperative, healthy appearing, well developed and well groomed [facility] Head: normal to inspection, normocephalic and atraumatic Face and sinus: sinuses nontender Mouth: oral mucosae normal and moist mucous membranes Throat: posterior oropharynx normal Eyes General: Yes appearance normal, both eyes and all related structures Neck Neck: normal visual inspection, supple, No lymphadenopathy and No JVD Chest Chest: normal inspection of the chest Resp Effort & Inspection: normal respiratory effort Other: Intermittent wheezes. Bilateral perihilar rales. Cardio Palpation: normal PMI Rate: regular rate Rhythm: regular rhythm Heart Sounds: S1 normal, S2 normal, no click and no murmurs GI Inspection: normal to inspection Palpation: soft and No tender Auscultation: normal bowel sounds Back/Spine/Pelvis Back: normal to inspection, No back tenderness and No CVA tenderness Skin General: no rashes or lesions noted Neuro General: patient alert, patient awake, patient oriented x3 and no focal motor deficits Extrem General: normal to inspection, no pedal edema and no calf tenderness Psych Appearance: grossly normal Course Course Course Narrative: Patient was given IV Rocephin, Zithromax 500 mg p.o.. He reports feeling better even prior to discharge. He will be discharged on Zithromax and doxycycline, with advice to follow-up with his PCM in 2-3 weeks. Orders Ordered: Discontinued Medications Azithromycin (Azithromycin 250 Mg Tablet) 500 mg PO NOW ONE Stop: 11/27/21 11:16 Last Admin: 11/27/21 11:31 Dose: 500 mg Documented By: JEET Sodium Chloride (Normal Saline 0.9%) 1,000 mls @ 1,000 mls/hr IV BOLUS ONE Stop: 11/27/21 10:59 Last Infusion: 11/27/21 11:40 Dose: 0 mls/hr Documented By: Admin: 11/27/21 10:28 Dose: 1,000 mls/hr Documented By: JEET(2) Ceftriaxone Sodium 1,000 mg/ (Sodium Chloride) 100 mls @ 200 mls/hr IV NOW ONE Stop: 11/27/21 11:16 Last Infusion: 11/27/21 12:21 Dose: 0 mls/hr Documented By: Admin: 11/27/21 11:33 Dose: 200 mls/hr Documented By: JEET Vital Signs Vital signs: Vital Signs - 8 hr 11/27/21 12:00 11/27/21 12:00 11/27/21 12:30 Pulse Rate 97 H Blood Pressure 147/72 H 132/71 Pulse Oximetry 96 11/27/21 12:30 Pulse Rate 96 H Blood Pressure Pulse Oximetry 95 MDM - SOB/Dyspnea Lab Data Result diagrams: 11/27/21 10:07 11/27/21 10:07 Labs: Lab Results 11/27/21 11/27/21 11/27/21 Range/Units 09:56 10:07 10:07 WBC 8.8 (4.5-11.0) X10^3/uL RBC 3.33 L (4.5-5.9) X10^6/uL Hgb 10.9 L (13.5-17.5) g/dL Hct 32.5 L (41-53) % MCV 97.6 (80-100) fL MCH 32.8 (26-34) PG MCHC 33.6 (30-36) % RDW 14.7 (11.6-14.8) % Plt Count 195 (150-400) X10^3/uL Neut % (Auto) 83.3 H (50-75) % Lymph % (Auto) 7.0 L (25-40) % Wagoner % (Auto) 5.0 (3-14) % Eos % (Auto) 4.1 H (2-4) % Baso % (Auto) 0.6 (0-2) % Neut # (Auto) 7400 H (6382-1775) /uL Lymph # (Auto) 600 L (0824-2011) /uL Wagoner # (Auto) 400 (0-900) /uL Eos # (Auto) 400 (0-450) /uL Baso # (Auto) 100 (0-100) /uL PT 12.8 H (10.1-12.7) SECONDS INR 1.1 (0.9-1.3) Sodium (137-145) mmol/L Potassium (3.4-5.1) mmol/L Chloride (98-107) mmol/L Carbon Dioxide (22-32) mmol/L BUN (9-20) mg/dL Creatinine (0.66-1.25) mg/dL Estimated GFR (>60) mL/min BUN/Creatinine Ratio (6-22) Glucose (80-110) mg/dL Lactate (0.7-2.1) mmol/L Calcium (8.4-10.2) mg/dL Total Bilirubin (0.2-1.3) mg/dL AST (17-59) IU/L ALT (<50) IU/L Alkaline Phosphatase (38-126) U/L NT-Pro-B Natriuret Pep (<450) pg/mL Total Protein (6.3-8.2) g/dL Albumin (3.5-5.0) g/dL Globulin (1.7-4.1) g/dL Albumin/Globulin Ratio (1.0-2.8) Procalcitonin (<0.5) ng/mL SARS-CoV-2 (PCR) Negative (Negative) 11/27/21 11/27/21 11/27/21 Range/Units 10:07 10:07 10:07 WBC (4.5-11.0) X10^3/uL RBC (4.5-5.9) X10^6/uL Hgb (13.5-17.5) g/dL Hct (41-53) % MCV (80-100) fL MCH (26-34) PG MCHC (30-36) % RDW (11.6-14.8) % Plt Count (150-400) X10^3/uL Neut % (Auto) (50-75) % Lymph % (Auto) (25-40) % Wagoner % (Auto) (3-14) % Eos % (Auto) (2-4) % Baso % (Auto) (0-2) % Neut # (Auto) (9225-7113) /uL Lymph # (Auto) (9077-4843) /uL Wagoner # (Auto) (0-900) /uL Eos # (Auto) (0-450) /uL Baso # (Auto) (0-100) /uL PT (10.1-12.7) SECONDS INR (0.9-1.3) Sodium 135 L (137-145) mmol/L Potassium 4.6 (3.4-5.1) mmol/L Chloride 102 (98-107) mmol/L Carbon Dioxide 21 L (22-32) mmol/L BUN 22 H (9-20) mg/dL Creatinine 1.04 (0.66-1.25) mg/dL Estimated GFR > 60 (>60) mL/min BUN/Creatinine Ratio 21.2 (6-22) Glucose 208 H (80-110) mg/dL Lactate 1.1 (0.7-2.1) mmol/L Calcium 9.0 (8.4-10.2) mg/dL Total Bilirubin 0.7 (0.2-1.3) mg/dL AST 29 (17-59) IU/L ALT 19 (<50) IU/L Alkaline Phosphatase 72 (38-126) U/L NT-Pro-B Natriuret Pep 450 H (<450) pg/mL Total Protein 7.6 (6.3-8.2) g/dL Albumin 3.9 (3.5-5.0) g/dL Globulin 3.7 (1.7-4.1) g/dL Albumin/Globulin Ratio 1.1 (1.0-2.8) Procalcitonin 0.11 (<0.5) ng/mL SARS-CoV-2 (PCR) (Negative) Imaging Data Chest x-ray: Radiologist's Impression: ?COPD and subtle patchy infiltrate/atelectasis in bilateral lower lung peraza.? No pleural effusion or pneumothorax. ECG Data Attestation: I personally reviewed and interpreted this ECG as follows: (NSR rate 95 beats per minute. Normal intervals. Occasional PAC no acute ST T wave changes.) Discharge Plan Departure Patient Disposition: Home Clinical Impression: Community acquired pneumonia, COPD (chronic obstructive pulmonary disease) Instructions: DI for Pneumonia -- Adult Activity Restrictions/Additional Instructions: Doxycycline 2 times daily for 7 days. Zithromax 250 mg daily for 4 days. Continue your current medications. Schedule follow-up with your doctor in 2-3 weeks. Return here if she develops s ignificant difficulty breathing. Prescriptions: New doxycycline hyclate 100 mg capsule 100 mg PO BID 7 Days Qty: 14 0RF azithromycin [Zithromax] 250 mg tablet 250 mg PO DAILY 4 Days Qty: 4 0RF Rx Instructions: start on day 2 of therapy No Action fluticasone propion-salmeterol [Advair Diskus] 500-50 mcg/dose blister with device 1 inh INHALATION DAILY pravastatin 20 mg tablet 20 mg PO BEDTIME lisinopril 5 mg tablet 5 mg PO DAILY hydroxychloroquine 200 mg tablet 200 mg PO BID insulin aspart U-100 [Novolog Flexpen U-100 Insulin] 100 unit/mL (3 mL) insulin pen 6 unit SUBCUT TIDWMEAL Lantus Solostar U-100 Insulin 100 unit/mL (3 mL) insulin pen 12 unit SUBCUT BEDTIME sulfasalazine 500 mg tablet 500 mg PO BID Rx Instructions: Take 2 tablets twice a day for arthritis vitamin B complex [Vitamin B Complex-100] Tablet 1 tab PO DAILY ferrous gluconate 324 mg (36 mg iron) Tablet 324 mg PO DAILY Referrals: Cici Jones MD [Primary Care Provider] - Visit Report Forms: Patient Portal/API
[2021-11-27] MEDS: AZITHROMYCIN 250 MG TABLET 500 MG PO (11:31)
[2021-11-27] MEDS: cefTRIAXone 1,000 MG in SODIUM CHLORIDE 0.9% 100 ML 200 MG IV (11:33)
== END 2021-11-27 13:06 | disposition home or self-care (01) ==
PROVIDERS: Emergency Provider Emergency Medicine; PCP Internal Medicine
DX: J02.9 Acute pharyngitis, unspecified (principal); J44.9 Chronic obstructive pulmonary disease, unspecified; Z20.822 Contact with and (suspected) exposure to COVID-19
CPT/HCPCS: 36415; 71046; 80053; 83605; 83880; 84145; 85025; 85610; 87040; 87635; 93005; 96365; 99284; C9803; J0696

== ENCOUNTER → 2022-04-29 10:41 | Outpatient (CLI) | payer MEDICARE, SELFPAY ==
[2020-08-03 09:42] VITALS: BMI 20.9
--- NOTE | 2022-04-29 | DI.MRI.S_ITS ---
PROCEDURE: MR LUMBAR SPINE WO CON INDICATIONS: Other symptoms and signs involving the musculoskel TECHNIQUE: Noncontrast sagittal T1 spin echo and T2 fast echo, sagittal STIR, and T2 fast spin echo through the lumbar spine. In cases with scoliosis, additional coronal T2 fast spin echo may be performed. COMPARISON: None. FINDINGS: Image quality: Excellent. Alignment and Curvature: There is prominent leftward scoliotic curvature with apex at L2-3.. There is area listhesis of T12 on L1, trace retrolisthesis of L2 on L3 L3 on L4, L4 on Bone Marrow: Marrow is of normal overall signal. Mild reactive endplate changes are present at L3-4, L4-5 and L5-S1. No acute vertebral body compression fractures. Spinal Cord: Conus medullaris terminates at the L1 level. Visualized cord demonstrates normal signal and size. Paraspinous Soft Tissues: No paravertebral masses. Discs: Multilevel moderate to severe disc desiccation is present. L1-L2: Mild disc bulge with mild spinal stenosis. Moderate to severe right and moderate left foraminal narrowing with facet and ligamentum flavum hypertrophy. L2-L3: Mild disc bulge with mild spinal stenosis. Moderate bilateral foraminal narrowing with facet and ligamentum flavum hypertrophy. L3-L4: Mild disc bulge with minimal canal narrowing. Severe right and moderate to severe left foraminal narrowing with facet and ligamentum flavum hypertrophy. L4-L5: Mild disc bulge with superimposed posterior central/left paracentral protrusion. Mild spinal stenosis. Severe left foraminal narrowing with compression of the exiting L4 nerve root. Facet hypertrophy is present. L5-S1: Mild disc bulge with minimal spinal stenosis. Severe left and moderate right foraminal narrowing with facet and ligamentum flavum hypertrophy. There is mild compression of the exiting left L5 nerve root. IMPRESSION: Multilevel disc bulges. Multilevel foraminal narrowing most severe at L3-4, L4-5 and L5-S1 secondary to scoliotic curvature as well as facet/ligamentum flavum arthropathy. Dictated by: Yany Dunne M.D. on 04/29/2022 at 16:25 Approved by: Yany Dunne M.D. on 04/29/2022 at 16:29
== END ==
PROVIDERS: PCP Internal Medicine; Referring Provider Internal Medicine; Visit Provider Internal Medicine
DX: M51.36 Other intervertebral disc degeneration, lumbar region (principal); M51.37 Other intervertebral disc degeneration, lumbosacral region; M48.061 Spinal stenosis, lumbar region without neurogenic claudication; M48.07 Spinal stenosis, lumbosacral region; M47.816 Spondylosis without myelopathy or radiculopathy, lumbar region; M47.817 Spondylosis without myelopathy or radiculopathy, lumbosacral region; M41.9 Scoliosis, unspecified; R29.898 Other symptoms and signs involving the musculoskeletal system
CPT/HCPCS: 72148

== ENCOUNTER 2022-07-10 12:05 | Inpatient (IN) | payer MEDICARE, SELFPAY ==
[2020-08-03 09:42] VITALS: BMI 20.9
[2022-07-10] VITALS (17 sets, daily range): BP systolic 102–132; BP diastolic 55–67; PULSE 77–91; RESP 15–20; TEMP 36.4–37.2; O2SAT 97–99; BMI 20.9; BMI 20.5
--- NOTE | 2022-07-10 13:22 | DI.RAD.S_ITS ---
PROCEDURE: XR CHEST 1V INDICATIONS: chest pain TECHNIQUE: One view of the chest was acquired. COMPARISON: [facility], CR, XR CHEST 2V, 11/27/2021, 10:23. [facility], CR, XR CHEST 1V, 08/03/2020, 5:00. FINDINGS: Surgical changes and devices: None. Lungs and pleura: Trace left pleural effusion versus scarring. Mediastinum: Mediastinal contours appear normal. Heart size is normal. Bones and chest wall: No suspicious bony lesions. Overlying soft tissues appear unremarkable. IMPRESSION: Trace left pleural effusion versus scarring. Dictated by: Gil Mandujano M.D. on 07/10/2022 at 13:54 Approved by: Gil Mandujano M.D. on 07/10/2022 at 13:55
--- NOTE | 2022-07-10 14:00 | PC.NURSE ---
PT/spouse report since April, intermittent episodes of left leg weakness. Yesterday while out walking had syncopal episode. Pt did not fall or hit head. Spouse/friend were able to guide him to sit on his walker. Pt denies increased pain when his leg gives out. Presents today with equal strength in all extremities.
[2022-07-10 14:03] LABS: Alanine Aminotransferase 23 IU/L (<50); Albumin 3.8 g/dL (3.5-5.0); Albumin Globulin Ratio 1.1 (1.0-2.8); Alkaline Phosphatase 71 U/L (38-126); Aspartate Aminotransferase 29 IU/L (17-59); BUN Creatinine Ratio 29.2 (6-22); Bilirubin Total 0.6 mg/dL (0.2-1.3); Blood Urea Nitrogen 52 mg/dL (9-20); Calcium 9.1 mg/dL (8.4-10.2); Carbon Dioxide 24 mmol/L (22-32); Chloride 103 mmol/L (98-107); Creatine Kinase 48 U/L (55-170); Estimated Glomerular Filt Rate 38 mL/min (>60); Globulin 3.4 g/dL (1.7-4.1); Glucose 164 mg/dL (80-110); HEMOLYSIS < 15 (0-50); Lipase 27 U/L (23-300); Magnesium 1.8 mg/dL (1.6-2.3); Potassium 4.2 mmol/L (3.4-5.1); Sodium 136 mmol/L (137-145); Total Protein 7.2 g/dL (6.3-8.2)
[2022-07-10 14:11] LABS: NT-proBNP (BNP-Adult 18+) 355 pg/mL (<450)
[2022-07-10 14:15] LABS: Hematocrit 30.2 % (41-53); Hemoglobin 10.2 g/dL (13.5-17.5); Mean Corpuscular HGB Conc 33.9 % (30-36); Mean Corpuscular Volume 100.4 fL (80-100); Platelet Count 231 X10^3/uL (150-400); Red Blood Cell Count 3.01 X10^6/uL (4.5-5.9); Red Cell Distribution Width 14.3 % (11.6-14.8)
[2022-07-10 14:16] LABS: Troponin I 0.167 ng/mL (0.01-0.034)
[2022-07-10 14:18] LABS: Add Manual Diff / Slide Review YES
[2022-07-10 14:28] LABS: PTT Partial Thromboplastin Tim 31 SECONDS (26-36)
--- NOTE | 2022-07-10 14:28 | ED.SYNCOPE ---
HPI - Syncope General Chief Complaint: Weakness Stated Complaint: PT was told to come for MRI from his DR Time Seen by Provider: 07/10/22 14:28 Source: patient Mode of arrival: Wheelchair Limitations: no limitations History of Present Illness HPI narrative: This was a 89-year-old male history of hypertension dyslipidemia diabetes and asthma and rheumatoid arthritis. Patient has had chronic pleural effusion and pericardial effusion in the past. Echo from 08/19/2021 shows EF of 60%, no focal wall motion changes unable to fully assess diastolic but had moderate pericardial effusion. Patient presents with complaint of left leg weakness that comes and goes with no pain, numbness or tingling. It is intermittent not persistent. He had workup and lumbar MRI which showed some neural foraminal stenosis but no spinal stenosis here at our facility. notes they were at [employer] trial yesterday he ambulated with his walker to the 1st bench, sat down and she states he fell asleep immediately and was unarousable for about 2 minutes with his arms stretched out and loss of tone. She states afterwards he was weak could not really stand and required assistance to get him back home. Patient has not had any headache he complained of some chest pain 2 weeks ago, no shortness of breath, no nausea or vomiting no issues with bowel movements, no dysuria urgency or frequency no abdominal, back or flank pain. No incontinence. He occasionally feels dizzy. He has been eating well taking fluids. He denies leg pain, numbness or weakness and he states he is not weak when he tries to lift his leg in bed. Patient denies any prior heart attacks or strokes. He is on long and short-acting insulin, lisinopril, hydroxychloroquine for his rheumatoid arthritis, statin and sulfasalazine. Has not allergy to shellfish. No tobacco, alcohol or illicit. He had a left knee surgery 10 years ago. Tablets his primary care he follows with endocrinology and rheumatology in [place] he has seen pulmonology and Cardiology in the past. Patient presents today with no specific complaints other than this left leg weakness and the episode yesterday. Related Data Home Medications Medication Instructions Recorded Confirmed fluticasone 500 mcg-salmeterol 50 1 inh inhalation DAILY 04/04/20 07/10/22 mcg/dose blistr powdr for inhalation (Advair Diskus) hydroxychloroquine 200 mg tablet 200 mg PO BID 04/04/20 07/10/22 insulin aspart U-100 100 unit/mL 6 unit SUBCUT TIDWMEAL 04/04/20 07/10/22 (3 mL) subcutaneous pen (Novolog FlexPen U-100 Insulin aspart) insulin glargine 100 unit/mL (3 12 unit SUBCUT BEDTIME 04/04/20 07/10/22 mL) subcutaneous pen (Lantus Solostar U-100 Insulin) lisinopril 5 mg tablet 5 mg PO DAILY 04/04/20 07/10/22 pravastatin 20 mg tablet 20 mg PO BEDTIME 04/04/20 07/10/22 sulfasalazine 500 mg tablet 500 mg PO BID 08/03/20 07/10/22 vitamin B complex 1 tab PO DAILY 08/03/20 07/10/22 Allergies Allergy/AdvReac Type Severity Reaction Status Date / Time shellfish derived AdvReac Verified 07/10/22 12:13 Review of Systems Review of Systems ROS Unobtainable: All systems reviewed & are unremarkable except as noted in HPI and below Patient History Medical History Cataract COPD (chronic obstructive pulmonary disease) Diabetes History of colon polyps Ingrowing toenail of left foot Surgical History History of cataract surgery Total knee replacement status Social History household members: spouse and family Smoking Status: Never smoker alcohol intake: former Smoking Status: Never smoker alcohol intake frequency: other Substance Use Type: does not use Exam Narrative Exam Narrative: GEN: well nourished, well appearing male, alert and oriented x 3, patient appears to be in mild distress. HEENT: Atraumatic, pupils are equal round reactive to light, extraocular movements are intact, nares are clear, there is no conjunctival pallor. Throat is clear without any exudates, erythema, tonsillar enlargement or uvular deviation HEART: Regular rate and rhythm without murmur, clicks, rubs. No carotid bruits, pulses are equal in upper and lower extremities. No edema bilateral lower extremities. LUNGS:Lungs clear to auscultation, no wheezes, rales, crackles, chest moves symmetrically ABD:bowel sounds normal, soft, non-tender, no guarding, rebound, rigidity, no masses noted, no hepatosplenomegaly :No CVA tenderness MSCL: Non-tender, no muscle atrophy, muscles strength 5/5 upper and lower extremities, full range of motion. NEURO:CN 2-12 intact, sensation normal, finger nose finger test normal, heel cam test normal, romberg normal Initial Vital Signs Initial Vital Signs: Vital Signs Temperature 99.0 F 07/10/22 12:09 Pulse Rate 91 H 07/10/22 12:09 Respiratory Rate 18 07/10/22 12:09 Blood Pressure 102/59 L 07/10/22 12:09 Pulse Oximetry 97 07/10/22 12:09 Oxygen Delivery Method Room Air 07/10/22 12:09 Scores NIH Stroke Scale Level of Conciousness: Alert, keenly responsive Ask month/age: Answers both questions correctly. Open/close eyes, close hand: Performs both tasks correctly Best gaze horizontal: Normal Visual peraza: No visual loss Facial palsy: Normal symetrical movement Left arm drift: No drift for full 10 sec Right arm drift: No drift for full 10 sec Left leg drift: No drift for full 5 sec Right leg drift: No drift for full 5 sec Limb ataxia: Absent Sensory on face/arms/legs: Normal, no sensory loss Best language: No aphasia, normal Dysarthria: Normal Extinction or inattention: No abnormality Total NIH Stroke scale score: 0 Course Orders Ordered: ED Orders 07/10/22 13:22 XR chest 1V Stat 07/10/22 13:35 BNP [NT-proBNP (BNP-Adult 18+)] Stat CRP [C-Reactive Protein Quant] Stat Complete Blood Count AUTO DIFF Stat Comprehensive Metabolic Panel Stat D Dimer Stat ESR [Erythrocyte Sedimentation Rate] Stat Lipase Stat Magnesium Stat PTT Partial Thromboplastin Lenin Stat Prothrombin Time INR Stat Troponin & CK Cardiac Panel Stat 07/10/22 14:00 COVID19 -Nasal RAPID Stat 07/10/22 14:04 EKG-12 Lead Stat 07/10/22 14:30 EKG-12 Lead Routine 07/10/22 14:45 CT angio chest PE protocol Stat CT head/brain wo con Stat 07/10/22 15:30 Trop I [Troponin I] Stat Acetaminophen (Acetaminophen 325 Mg Tablet) 650 mg PO Q6H PRN PRN Reason: Fever/Mild Pain (1-3) Dextrose (Dextrose 50 % In Water 25 Gm/50 Ml Syringe) 25 gm IV PRN PRN PRN Reason: Hypoglycemia Sodium Chloride (Normal Saline 0.9%) 1,000 mls @ 100 mls/hr IV CONT ASTRID Stop: 07/11/22 03:37 Last Admin: 07/10/22 18:10 Dose: 100 mls/hr Documented By: BT Insulin Glargine (Insulin Glargine 100 Unit/Ml 3ml Pen) 12 unit SUBCUT 2100 ASTRID Insulin Human Lispro (Insulin Lispro 100 Unit/Ml 3ml Vial) 0 unit SUBCUT ACHS ASTRID; Protocol Insulin Human Lispro (Insulin Lispro 100 Unit/Ml 3ml Vial) 4 unit SUBCUT AC ASTRID Naloxone HCl (Naloxone 0.4 Mg/Ml Vial) 0.2 mg IV Q2MIN PRN PRN Reason: Opiate Reversal Ondansetron HCl (Ondansetron 4 Mg/2 Ml Inj) 4 mg IV Q8HR PRN PRN Reason: Nausea And Vomiting Discontinued Medications Sodium Chloride (Normal Saline 0.9%) 1,000 mls @ 150 mls/hr IV CONT ASTRID Last Infusion: 07/10/22 17:36 Dose: 0 mls/hr Documented By: Admin: 07/10/22 15:06 Dose: 150 mls/hr Documented By: RB Vital Signs Vital signs: Vital Signs - 8 hr 07/10/22 12:09 07/10/22 13:16 07/10/22 13:17 Temperature 99.0 F Pulse Rate 91 H 90 88 Respiratory Rate 18 Blood Pressure 102/59 L Pulse Oximetry 97 98 98 Oxygen Delivery Method Room Air Room Air Room Air 07/10/22 13:17 07/10/22 13:30 07/10/22 13:35 Temperature Pulse Rate 87 Respiratory Rate Blood Pressure 124/62 114/62 Pulse Oximetry 98 Oxygen Delivery Method Room Air 07/10/22 13:35 07/10/22 14:00 07/10/22 14:00 Temperature Pulse Rate 84 84 Respiratory Rate 20 Blood Pressure 112/58 L Pulse Oximetry 99 98 Oxygen Delivery Method Room Air 07/10/22 14:30 07/10/22 14:30 07/10/22 15:06 Temperature Pulse Rate 84 83 Respiratory Rate 15 Blood Pressure 113/64 Pulse Oximetry 98 99 Oxygen Delivery Method 07/10/22 15:07 07/10/22 15:07 07/10/22 15:30 Temperature Pulse Rate 84 Respiratory Rate 19 Blood Pressure 132/56 L 113/55 L Pulse Oximetry 99 Oxygen Delivery Method 07/10/22 15:30 07/10/22 16:00 07/10/22 16:00 Temperature Pulse Rate 85 80 Respiratory Rate 18 17 Blood Pressure 116/61 Pulse Oximetry 99 98 Oxygen Delivery Method 07/10/22 16:30 07/10/22 16:30 Temperature Pulse Rate 84 Respiratory Rate 17 Blood Pressure 107/55 L Pulse Oximetry 98 Oxygen Delivery Method MDM - Syncope Lab Data 07/10/22 13:35 07/10/22 13:35 Labs: Lab Results 07/10/22 07/10/22 07/10/22 Range/Units 13:35 13:35 13:35 WBC 7.0 (4.5-11.0) X10^3/uL RBC 3.01 L (4.5-5.9) X10^6/uL Hgb 10.2 L (13.5-17.5) g/dL Hct 30.2 L (41-53) % MCV 100.4 H (80-100) fL MCH 34.0 (26-34) PG MCHC 33.9 (30-36) % RDW 14.3 (11.6-14.8) % Plt Count 231 (150-400) X10^3/uL Neut % (Auto) Not Reportable Lymph % (Auto) Not Reportable [place] % (Auto) Not Reportable Eos % (Auto) Not Reportable Baso % (Auto) Not Reportable Lymph # (Auto) Not Reportable [place] # (Auto) Not Reportable Baso # (Auto) Not Reportable Total Counted 100 Seg Neutrophils % 72.0 H (38-70) % Lymphocytes % (Manual) 15.0 L (25-45) % Monocytes % (Manual) 9.0 (2-11) % Eosinophils % (Manual) 4.0 (2-4) % Neutrophils # (Manual) 5040 (1740-1417) /uL RBC Morphology Normal morphology ESR (0-15) MM/HR PT 12.0 (10.1-12.7) SECONDS INR 1.0 (0.9-1.3) APTT 31 (26-36) SECONDS D-Dimer (<500) ng/ml Sodium 136 L (137-145) mmol/L Potassium 4.2 (3.4-5.1) mmol/L Chloride 103 (98-107) mmol/L Carbon Dioxide 24 (22-32) mmol/L BUN 52 H (9-20) mg/dL Creatinine 1.78 H (0.66-1.25) mg/dL Estimated GFR 38 L (>60) mL/min BUN/Creatinine Ratio 29.2 H (6-22) Glucose 164 H (80-110) mg/dL Calcium 9.1 (8.4-10.2) mg/dL Magnesium 1.8 (1.6-2.3) mg/dL Total Bilirubin 0.6 (0.2-1.3) mg/dL AST 29 (17-59) IU/L ALT 23 (<50) IU/L Alkaline Phosphatase 71 (38-126) U/L Total Creatine Kinase 48 L (55-170) U/L CK-MB (CK-2) TNP CK-MB (CK-2) Rel Index TNP Troponin I 0.167 H* (0.01-0.034) ng/mL C-Reactive Protein (<1.0) mg/dL NT-Pro-B Natriuret Pep (<450) pg/mL Total Protein 7.2 (6.3-8.2) g/dL Albumin 3.8 (3.5-5.0) g/dL Globulin 3.4 (1.7-4.1) g/dL Albumin/Globulin Ratio 1.1 (1.0-2.8) Lipase 27 (23-300) U/L SARS-CoV-2 (PCR) (Negative) 07/10/22 07/10/22 07/10/22 Range/Units 13:35 13:35 13:35 WBC (4.5-11.0) X10^3/uL RBC (4.5-5.9) X10^6/uL Hgb (13.5-17.5) g/dL Hct (41-53) % MCV (80-100) fL MCH (26-34) PG MCHC (30-36) % RDW (11.6-14.8) % Plt Count (150-400) X10^3/uL Neut % (Auto) Lymph % (Auto) [place] % (Auto) Eos % (Auto) Baso % (Auto) Lymph # (Auto) [place] # (Auto) Baso # (Auto) Total Counted Seg Neutrophils % (38-70) % Lymphocytes % (Manual) (25-45) % Monocytes % (Manual) (2-11) % Eosinophils % (Manual) (2-4) % Neutrophils # (Manual) (5272-9972) /uL RBC Morphology ESR 41 H (0-15) MM/HR PT (10.1-12.7) SECONDS INR (0.9-1.3) APTT (26-36) SECONDS D-Dimer 1881 H (<500) ng/ml Sodium (137-145) mmol/L Potassium (3.4-5.1) mmol/L Chloride (98-107) mmol/L Carbon Dioxide (22-32) mmol/L BUN (9-20) mg/dL Creatinine (0.66-1.25) mg/dL Estimated GFR (>60) mL/min BUN/Creatinine Ratio (6-22) Glucose (80-110) mg/dL Calcium (8.4-10.2) mg/dL Magnesium (1.6-2.3) mg/dL Total Bilirubin (0.2-1.3) mg/dL AST (17-59) IU/L ALT (<50) IU/L Alkaline Phosphatase (38-126) U/L Total Creatine Kinase (55-170) U/L CK-MB (CK-2) CK-MB (CK-2) Rel Index Troponin I (0.01-0.034) ng/mL C-Reactive Protein (<1.0) mg/dL NT-Pro-B Natriuret Pep 355 (<450) pg/mL Total Protein (6.3-8.2) g/dL Albumin (3.5-5.0) g/dL Globulin (1.7-4.1) g/dL Albumin/Globulin Ratio (1.0-2.8) Lipase (23-300) U/L SARS-CoV-2 (PCR) (Negative) 07/10/22 07/10/22 07/10/22 Range/Units 13:35 14:00 15:30 WBC (4.5-11.0) X10^3/uL RBC (4.5-5.9) X10^6/uL Hgb (13.5-17.5) g/dL Hct (41-53) % MCV (80-100) fL MCH (26-34) PG MCHC (30-36) % RDW (11.6-14.8) % Plt Count (150-400) X10^3/uL Neut % (Auto) Lymph % (Auto) [place] % (Auto) Eos % (Auto) Baso % (Auto) Lymph # (Auto) [place] # (Auto) Baso # (Auto) Total Counted Seg Neutrophils % (38-70) % Lymphocytes % (Manual) (25-45) % Monocytes % (Manual) (2-11) % Eosinophils % (Manual) (2-4) % Neutrophils # (Manual) (1935-1201) /uL RBC Morphology ESR (0-15) MM/HR PT (10.1-12.7) SECONDS INR (0.9-1.3) APTT (26-36) SECONDS D-Dimer (<500) ng/ml Sodium (137-145) mmol/L Potassium (3.4-5.1) mmol/L Chloride (98-107) mmol/L Carbon Dioxide (22-32) mmol/L BUN (9-20) mg/dL Creatinine (0.66-1.25) mg/dL Estimated GFR (>60) mL/min BUN/Creatinine Ratio (6-22) Glucose (80-110) mg/dL Calcium (8.4-10.2) mg/dL Magnesium (1.6-2.3) mg/dL Total Bilirubin (0.2-1.3) mg/dL AST (17-59) IU/L ALT (<50) IU/L Alkaline Phosphatase (38-126) U/L Total Creatine Kinase (55-170) U/L CK-MB (CK-2) CK-MB (CK-2) Rel Index Troponin I 0.154 H* (0.01-0.034) ng/mL C-Reactive Protein 0.8 (<1.0) mg/dL NT-Pro-B Natriuret Pep (<450) pg/mL Total Protein (6.3-8.2) g/dL Albumin (3.5-5.0) g/dL Globulin (1.7-4.1) g/dL Albumin/Globulin Ratio (1.0-2.8) Lipase (23-300) U/L SARS-CoV-2 (PCR) Negative (Negative) Imaging Data Chest x-ray: Radiologist's Impression: [address] [address] XRay Report Signed Patient: Kendall Lopez MR#: [id number] : 1940 Acct:[id number] Age/Sex: 82 / M Date of Service: 07/10/22 Loc: ED Accession Number: [id number] ?? Procedure: XR chest 1V Ordering Provider: Mali Delaney D.O. PROCEDURE:? XR CHEST 1V ? INDICATIONS:? chest pain ? TECHNIQUE:? One view of the chest was acquired.? ? COMPARISON:? [facility], CR, XR CHEST 2V, 11/27/2021, 10:23.? [facility], CR, XR CHEST 1V, 08/03/2020, 5:00. ? FINDINGS:? ? Surgical changes and devices:? None.? ? Lungs and pleura:? Trace left pleural effusion versus scarring. ? Mediastinum:? Mediastinal contours appear normal.? Heart size is normal.? ? Bones and chest wall:? No suspicious bony lesions.? Overlying soft tissues appear unremarkable.? ? IMPRESSION:? Trace left pleural effusion versus scarring. ? ? Dictated by: Gil Mandujano M.D. on 07/10/2022 at 13:54 ? ? Approved by: Gil Mandujano M.D. on 07/10/2022 at 13:55?? CT scan - head: Radiologist's Impression: [address] [id number] Scan ReportSigned Patient: Jaswinder Christie [facility]#: [id number]: 10/28/1979Acct:[id number]/Sex: 42 / MDate of Service: 07/10/22Loc: EDAccession Number: [id number]? ? Procedure: CT angio head and neck Ordering Provider: Mali Delaney D.O. PROCEDURE:? CT ANGIO HEAD AND NECK ? INDICATIONS:? dizzy, vertigo after chiropractor adjustment ? TECHNIQUE:? Noncontrast images were performed earlier in the day and not repeated.? ? After the administration of intravenous contrast, 1 mm thick sections acquired from the aortic arch through the [place] of [place].? Post-contrast 4.5 mm thick sections then re-acquired from the foramen magnum to the vertex.? 3-dimensional [id number]-yndbqxbcpw (MIP) and/or volume rendering reformats were acquired of the central intracranial vasculature and neck separately. For radiation dose reduction, the following was used:? automated exposure control, adjustment of mA and/or kV according to patient size.? ? COMPARISON:? [facility], CT, CT STROKE, 07/10/2022, 13:13. ? FINDINGS:? Image quality:? Excellent.? ? BRAIN:? CSF spaces:? Ventricles are normal in size and shape.? Basal cisterns are patent.? No extra-axial fluid collections.? ? Brain:? No midline shift.? No intracranial bleeds or masses.? [place]-white matter interface appears intact.? ? Skull and face:? Calvarium and facial bones appear intact, without suspicious lesions.? Orbits appear normal.? ? Sinuses:? Sinuses and mastoids are clear.? ? HEAD CT ANGIOGRAPHY:? Anterior circulation:? Intracranial internal carotid arteries are normal in size and flow.? There is a hypoplastic right A1 segment, with a corresponding robust left A1 segment.? This is considered to be a normal developmental variant of the [place] of [place], of typically no clinical consequence.? The flow within the paired anterior cerebral arteries is otherwise normal and symmetric.? The flow within the middle cerebral arteries is normal and symmetric.? The anterior communicating artery is seen.? No aneurysms are seen.? ? Posterior circulation:? Visualized portions of the vertebral arteries demonstrate normal caliber, and join to form a normal appearing basilar artery.? Flow within the posterior cerebral arteries is normal and symmetric.? No aneurysms are seen.? ? NECK CT ANGIOGRAPHY:? Carotid system:? The great vessels demonstrate a conventional anatomy as they arise from the aortic arch.? The origins of the common carotid arteries appear patent.? The common carotid arteries demonstrate normal caliber and courses.? The bifurcation regions are both widely patent.? The internal carotid arteries demonstrate normal calibers and courses.? ? Posterior circulation:? The origins of the vertebral arteries both appear widely patent.? Incidental note is made of a direct origin of the left vertebral artery from the aortic arch.? The more superior extracranial portions of both vertebral arteries also demonstrate normal courses and calibers.? They join to form a normal appearing basilar artery.? ? Soft tissues:? Visualized neck soft tissues demonstrate no suspicious abnormalities.? ? Bones:? No suspicious bony lesions.? Visualized cervical spine appears normally aligned.? IMPRESSION:? Negative for dissection. ? No significant intracranial arterial abnormality is seen.? ? Within the arteries of the neck, no hemodynamically significant stenosis can be seen.? Additional findings:? 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 Note: Case discussed by telephone with Dr. Delaney at 12:35 p.m. [place] time on July 10, 2022.? ? ? Any quantitative measurements of stenosis were performed using NASCET criteria.? ? ? Dictated by: Marino Bateman M.D. on 07/10/2022 at 12:36? ?? Approved by: Marino Bateman M.D. on 07/10/2022 at 12:38?? CT scan - chest: Radiologist's Impression: Close Head CT (Signed) Hair Callaway - 07/10/22 Chest CTA (Signed) Hair Callaway - 07/10/22 Chest X-Ray (Signed) Gil Mandujano - 07/10/22 Lumbar Spine MRI (Signed) Yany Dunne - 04/29/22 EKG Rpt. 11/27/21 Chest X-Ray (Signed) Danilo Naik - 11/27/21 Echocardiogram Ultrasound (Signed) Brunilda Low - 08/19/21 Echocardiogram Ultrasound (Signed) Brunilda Low - 02/04/21 Telemetry Strips 08/03/20 Echocardiogram Ultrasound (Signed) Megan Rogers - 08/03/20 Chest CTA (Signed) Jethro Dow - 08/03/20 Chest X-Ray (Signed) Paul Ellis - 08/03/20 Telemetry Strips 04/04/20 Launch?[address] [address] [address] Scan Report Signed Patient: Kendall Lopez MR#: [id number] : 1940 Acct:[id number] Age/Sex: 82 / M Date of Service: 07/10/22 Loc: ED Accession Number: [id number] ?? Procedure: CT angio chest PE protocol Ordering Provider: Mali Delaney D.O. PROCEDURE:? CT ANGIO CHEST PE PROTOCOL ? INDICATIONS:? syncope, + trop, leg leg weak ? TECHNIQUE:? After the administration of intravenous contrast, 2 mm thick sections acquired from the pulmonary apices to the posterior costophrenic angles.? 3-dimensional maximum intensity projection (MIP) coronal and sagittal reformats were then acquired through the thorax.? For radiation dose reduction, the following was used:? automated exposure control, adjustment of mA and/or kV according to patient size.? ? COMPARISON:? [facility], CT, CT ANGIO CHEST PE PROTOCOL, 08/03/2020, 6:23. ? FINDINGS:? Image quality:? Excellent.? ? Pulmonary arteries:? Pulmonary arteries are normal in size, and demonstrate no intraluminal filling defects to suggest central pulmonary embolism.? ? Lungs and pleura:? Lungs are clear.? Unchanged 4 mm pulmonary nodule, right lower lobe, current image 193/3.? No pleural effusions or pneumothorax.? Central and peripheral airways are patent.? ? Mediastinum:? Heart size is within normal limits.? There is a moderately large pericardial effusion which is increased compared to the previous study.? Severe coronary artery calcifications.? No mediastinal or hilar adenopathy.? Thoracic aorta is normal in caliber and enhancement.? Esophagus is normal in caliber, without hiatal hernia.? ? Bones and chest wall:? No suspicious bony lesions.? Ribs and thoracic spine appear intact throughout.? Thyroid gland is unremarkable.? No axillary or supraclavicular adenopathy.? ? Abdomen:? Visualized upper abdominal solid organs appear normal in the early arterial phase of enhancement.? ? IMPRESSION:? ? 1. Moderately large pericardial effusion, increased compared to the previous study. ? 2. Severe coronary artery calcifications. ? 3. Mild bilateral pleural effusions with mild bibasilar atelectasis. ? 4. Stable pulmonary nodule. ? 5. No evidence acute pulmonary emboli.? ? ? Dictated by: Hair Callaway M.D. on 07/10/2022 at 15:14 ? ? Approved by: Hair Callaway M.D. on 07/10/2022 at 15:28?? ECG Data Attestation: I personally reviewed and interpreted this ECG as follows: Prior ECG tracings: available for review Interpretation: Sinus rhythm occasional PVC rate 83 KS 156 QRS [address] QTC [address] No acute ST elevation or depression. Patient has prior from 11/27/2021 with no acute changes. EKG 2. Sinus rhythm rate 80 6p are 168 QRS is 78 QTC [address]. No acute ST elevation or depression appreciated some nonspecific change. MDM Narrative Medical decision making narrative: This is an 82-year-old male who comes with complaint of left lower extremity weakness that is intermittent with no pain numbness or tingling making me more concerned for possible stroke or other cause of his symptoms he does have an L-spine MRI shows bilateral neural foraminal stenosis in the lower lumbar region but no spinal stenosis he does not have any cauda equina symptoms. He also describes what sounds like likely a syncopal episode yesterday. His cardiac workup shows trace left pleural effusion which has been seen on prior, workup shows persistent baseline anemia, normal platelets and white count, dimer is elevated outside age adjustment. Patient's creatinine is elevated 1.78 with a BUN of 52 so he may have a component of dehydration, sodium is 136 potassium normal, glucose is 164 normal calcium and LFTs total CK is 48 but troponin is positive at 0.167, BNP at 3:55 a.m. with no other acute changes. Patient does not have any acute or dynamic EKG changes CT PE for evaluation, head CT also included. Repeat troponin at the 2 hour fredy, gentle fluids. Repeat troponin slightly trending down words no dynamic changes with EKG. CT angio shows moderate to large pericardial effusion, head CT is negative, CT angio does not show pulmonary emboli shows severe coronary artery calcifications, mild bilateral pleural effusions with mild bibasilar atelectasis with a stable pulmonary nodule. Discussed with Dr. Aranda from Cardiology this time recommends observation, echo for better assessment of pericardial effusion. He would not heparinize this point patient is not having active chest pain or shortness of breath or other ischemic changes. Spoke with hospitalist: Dr. Cintron who accepts. Plan for echo. Reviewed patient's prior visit family noted that he was seen they told him that his effusion was not high enough risk to intervene on at that time. Discussed recommendations from Cardiology. Plan to hold off on heparinization as patient is overall asymptomatic. Did review patient's sort of atypical presentation with complaint of left lower extremity weakness with no pain or numbness, he does have MRI that shows some neural foraminal narrowing but no spinal narrowing and on examination does not have weakness. Trending down words troponin, imaging, labs and cardiology recommendations all reviewed. Discharge Plan Departure Patient Disposition: Admitted as Observation Clinical Impression: Effusion, pericardium Admit Date/Time: 07/10/22 16:49 Admit Provider: Eugene Cintron
[2022-07-10 14:33] LABS: D Dimer 1881 ng/ml (<500)
[2022-07-10 14:45] LABS: COVID19 -Nasal RAPID Negative (Negative)
--- NOTE | 2022-07-10 14:45 | DI.CT.S_ITS ---
PROCEDURE: CT ANGIO CHEST PE PROTOCOL INDICATIONS: syncope, + trop, leg leg weak TECHNIQUE: After the administration of intravenous contrast, 2 mm thick sections acquired from the pulmonary apices to the posterior costophrenic angles. 3-dimensional maximum intensity projection (MIP) coronal and sagittal reformats were then acquired through the thorax. For radiation dose reduction, the following was used: automated exposure control, adjustment of mA and/or kV according to patient size. COMPARISON: [facility], CT, CT ANGIO CHEST PE PROTOCOL, 08/03/2020, 6:23. FINDINGS: Image quality: Excellent. Pulmonary arteries: Pulmonary arteries are normal in size, and demonstrate no intraluminal filling defects to suggest central pulmonary embolism. Lungs and pleura: Lungs are clear. Unchanged 4 mm pulmonary nodule, right lower lobe, current image 193/3. No pleural effusions or pneumothorax. Central and peripheral airways are patent. Mediastinum: Heart size is within normal limits. There is a moderately large pericardial effusion which is increased compared to the previous study. Severe coronary artery calcifications. No mediastinal or hilar adenopathy. Thoracic aorta is normal in caliber and enhancement. Esophagus is normal in caliber, without hiatal hernia. Bones and chest wall: No suspicious bony lesions. Ribs and thoracic spine appear intact throughout. Thyroid gland is unremarkable. No axillary or supraclavicular adenopathy. Abdomen: Visualized upper abdominal solid organs appear normal in the early arterial phase of enhancement. IMPRESSION: 1. Moderately large pericardial effusion, increased compared to the previous study. 2. Severe coronary artery calcifications. 3. Mild bilateral pleural effusions with mild bibasilar atelectasis. 4. Stable pulmonary nodule. 5. No evidence acute pulmonary emboli. Dictated by: Hair Callaway M.D. on 07/10/2022 at 15:14 Approved by: Hair Callaway M.D. on 07/10/2022 at 15:28
--- NOTE | 2022-07-10 14:45 | DI.CT.S_ITS ---
PROCEDURE: CT HEAD/BRAIN WO CON INDICATIONS: syncope vs other (+ intermittent leg weakness TECHNIQUE: Noncontrast 4.5 mm thick angled axial sections acquired from the foramen magnum to the vertex, with coronal and sagittal reformats. For radiation dose reduction, the following was used: automated exposure control, adjustment of mA and/or kV according to patient size. COMPARISON: None. FINDINGS: Image quality: Excellent. CSF spaces: Basal cisterns are patent. No extra-axial fluid collections. The ventricles are symmetric in size and shape. Brain: No intracranial bleeds or masses. There is cerebral volume loss for age, with resultant ventricular and sulcal prominence. There are moderate periventricular and deep white matter chronic small vessel ischemic changes. There is intracranial internal carotid artery atherosclerosis. Skull and face: Calvarium and visualized facial bones appear intact, without suspicious lesions. Sinuses: Patchy bilateral ethmoid opacification. Mastoids are clear. IMPRESSION: 1. Age-related volume loss and moderate small vessel ischemic change. 2. No evidence acute intracranial abnormality. 3. Chronic ethmoid disease. Dictated by: Hair Callaway M.D. on 07/10/2022 at 15:13 Approved by: Hair Callaway M.D. on 07/10/2022 at 15:14
[2022-07-10 15:04] LABS: Neutrophils Absolute Manual 5040 /uL (3000-5900); RBC Morphology Normal Morphology; Total Cells Counted 100
[2022-07-10] MEDS: SODIUM CHLORIDE 0.9% 1,000 ML 150 ML IV (15:06)
[2022-07-10 16:02] LABS: C-Reactive Protein Quant 0.8 mg/dL (<1.0)
[2022-07-10 16:04] LABS: Troponin I 0.154 ng/mL (0.01-0.034)
[2022-07-10 16:18] LABS: Erythrocyte Sedimentation Rate 41 MM/HR (0-15)
--- NOTE | 2022-07-10 17:04 | DI.ECHO.S_ITS ---
[facility] +---------+ : : [address] : : : : [id number] : : : : Phone: [phone]+ Echocardiogram Report + + :Name: SANAZ MENG Study Date: 07/11/2022 Height: 71 in : :[facility] ReadingLocation: Weight: 150 lb : : Gender: Male BSA: 1.9 m2 : :: 1940 Age: 82 yrs BP: 125/69 mmHg: :Reason For Study: SYNCOPE, PERICARDIAL EFFUSION HR: 93 : :Ordering Physician: LUZMARIA, : :RACHEL PATEL Performed By: SHAWANDA GARZA : :Referring: RACHEL DUTTA : + + Interpretation Summary The left ventricle is normal in size. The left ventricle is hyperdynamic. The ejection fraction is estimated to be 75-80%. There are no focal wall motion abnormalities. Diastolic parameters suggest a pseudonormalization pattern, consistent with probable elevated filling pressures. The right ventricle is normal size. The right ventricle is hyperdynamic. There is a small mass noted on the non-coronary aortic cusp on the ventricular side. 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 This mass was not present on prior echo study. If clinically suspicious for endocarditis then consider a KRYSTA. The aortic root is borderline dilated. There is a small pericardial effusion noted. There are no echocardiographic or Doppler indications for cardiac tamponade. There has been no significant change since the previous study. Procedure: A two-dimensional transthoracic echocardiogram with color flow and Doppler was performed. The study quality was technically adequate. Comparison is made with the echocardiogram of 08/19/2021. The patient was in a tachycardic rhythm during the exam. Left Ventricle: The left ventricle is normal in size. Left ventricular wall thickness is mild-moderately increased. The left ventricle is hyperdynamic. The ejection fraction is estimated to be 75-80%. There are no focal wall motion abnormalities. Diastolic parameters suggest a pseudonormalization pattern, consistent with probable elevated filling pressures. Right Ventricle: The right ventricle is normal size. The right ventricle is hyperdynamic. Atria: The left atrium is mildly dilated. Chiari network (normal variant) is noted. There is no Doppler evidence for an interatrial shunt. Mitral Valve: There is mild mitral annular calcification. There is trace mitral regurgitation. Aortic Valve: The aortic valve is trileaflet. The aortic valve opens well. There is no aortic valve stenosis. No aortic regurgitation is present. Tricuspid Valve: The tricuspid valve is normal in structure and function. There is trace tricuspid regurgitation. Pulmonary artery pressures cannot be estimated because of the lack of a measurable TR jet velocity. Pulmonic Valve: The pulmonic valve leaflets are thin and pliable; valve motion is normal. There is no pulmonic valvular regurgitation. Great Vessels: The aortic root is borderline dilated. The ascending aorta is normal in size. The IVC is of normal diameter and collapses greater than 50% with a sniff. This suggests a low right atrial pressure of 3 mm Hg. Pericardium/ Pleura There is a small pericardial effusion noted. There are no echocardiographic or Doppler indications for cardiac tamponade. There has been no significant change since the previous study. There is no pleural effusion. MMode/2D Measurements & Calculations LVIDd: 3.8 cm LVOT diam: 2.0 cm LVIDs: 2.4 cm Ao root diam: 3.7 cm FS: 36.8 % asc Aorta Diam: 3.3 cm IVSd: 1.2 cm LVPWd: 1.6 cm LV espino. diameter/BSA (cm/m^2): 2.0 LV sys. diameter/BSA (cm/m^2): 1.3 LA A2 area: 20.8 cm2 RA long axis: 5.0 cm LA A4 area: 19.8 cm2 LA length (vol): 5.4 cm LA vol: 65.2 ml LA vol index: 34.9 ml/m2 LVLs ap4: 6.3 cm LVLd ap2: 7.6 cm LVLs ap2: 6.4 cm TAPSE_phl: 1.6 cm Doppler Measurements & Calculations Ao V2 max: 131.0 cm/sec LVOT Max Vazquez: 112.0 cm/sec Ao V2 mean: 103.0 cm/sec LV V1 max P.0 mmHg Ao max P.0 mmHg LV V1 VTI: 23.7 cm Ao mean P.0 mmHg KYLE(I,D): 2.7 cm2 Ao V2 VTI: 27.7 cm KYLE(V,D): 2.7 cm2 sev ratio: 0.86 KYLE indexed to BSA (cm^2/m^2): 1.4 MV E max vazquez: 133.0 cm/sec PA V2 max: 100.0 cm/sec MV A max vazquez: 116.0 cm/sec PA V2 mean: 80.8 cm/sec MV E/A: 1.1 PA mean P.0 mmHg Med Peak E' Vazquez: 6.8 cm/sec PA pr(Accel): 42.5 mmHg E/E' med: 19.6 Lat Peak E' Vazquez: 6.4 cm/sec E/E' lat: 20.8 E/e' average: 20.2 MV dec time: 0.20 sec SV(LVOT): 74.5 ml AV VR_phl: 0.85 KYLE(VTI)/BSA_phl: 1.4 MV P1/2t-pr_phl: 59.0 msec Reading Physician:10:32 AM
--- NOTE | 2022-07-10 17:05 | P.HP_ITS ---
History of Present Illness History of Present Illness Date Patient Seen: 07/10/22 Time Patient Seen: 18:00 Chief complaint: PT was told to come for MRI from his DR Narrative: ?This is a 80-year-old male with a past medical history of type 1 diabetes, rheumatoid arthritis on hydroxychloroquine and sulfasalazine, hypertension, hyperlipidemia who presents with an abrupt onset of weakness starting this afternoon. Patient was walking a local trail in town when he developed difficulty moving his left leg. He denied pain, though did have some tingling but denied numbness. This was yesterday according to the patient and reports that it comes and goes but is very vague with his responses today. He thinks it lasted around 30 minutes. According to the ER, stated that he fell asleep immediately and was unarousable for around 2 minutes and lossed his tone. After about 2 minutes he was weak and required assistance to get him back home. He reports no recent fever, chills, abdominal pain, chest pain, nausea or vomiting, LE swelling, joint pains, weight loss, hemoptysis. He was here approximately 2 years ago for a pericardial effusion and fever, was transferred to [facility], he reports they did not find a cause but am awaiting records at this time from that facility. Patient reports he wears a glucose monitor and was not hypoglycemic at the time of these incidents. In the emergency room, his vitals were unremarkable, and labroatory evaluation showed a mild anemia with Hg 10.2 (stable from previous labs), creatinine of 1.78, and d-dimer of 1881. Troponin was 0.156 and downtrended on repeat to 0.154. EKG showed NSR without evidence of active ischemia. COVID was negative. Glucose was 164. CT head was unremarkable, CXR showed possible small pleural effusion, CT angio performed which showed mod-large pericardial effusion and bilateral pleural effusions, increased in size from prior. He was admitted for further managemet and evaluation of syncope vs CVA. [facility] Medical History Cataract COPD (chronic obstructive pulmonary disease) Diabetes History of colon polyps Ingrowing toenail of left foot Surgical History History of cataract surgery Total knee replacement status Social History household members: spouse and family Smoking Status: Never smoker alcohol intake: former Meds Home Medications and Allergies Home Medications Medication Instructions Recorded Confirmed Type fluticasone 500 mcg-salmeterol 50 1 inh inhalation DAILY 04/04/20 07/10/22 History mcg/dose blistr powdr for inhalation (Advair Diskus) hydroxychloroquine 200 mg tablet 200 mg PO BID 04/04/20 07/10/22 History insulin aspart U-100 100 unit/mL 6 unit SUBCUT TIDWMEAL 04/04/20 07/10/22 History (3 mL) subcutaneous pen (Novolog FlexPen U-100 Insulin aspart) insulin glargine 100 unit/mL (3 12 unit SUBCUT BEDTIME 04/04/20 07/10/22 History mL) subcutaneous pen (Lantus Solostar U-100 Insulin) lisinopril 5 mg tablet 5 mg PO DAILY 04/04/20 07/10/22 History pravastatin 20 mg tablet 20 mg PO BEDTIME 04/04/20 07/10/22 History sulfasalazine 500 mg tablet 500 mg PO BID 08/03/20 07/10/22 History vitamin B complex 1 tab PO DAILY 08/03/20 07/10/22 History Allergies Allergy/AdvReac Type Severity Reaction Status Date / Time shellfish derived AdvReac Verified 07/10/22 12:13 Review of Systems Review of Systems Narrative: All other systems reviewed with the patient and are negative unless otherwise stated. Exam Vital Signs (past 8 hours): - 07/10/22 12:09 07/10/22 13:16 07/10/22 13:17 Temperature 99.0 F Pulse Rate 91 H 90 88 Respiratory Rate 18 Blood Pressure 102/59 L Pulse Oximetry 97 98 98 Oxygen Delivery Method Room Air Room Air Room Air 07/10/22 13:17 07/10/22 13:30 07/10/22 13:35 Temperature Pulse Rate 87 Respiratory Rate Blood Pressure 124/62 114/62 Pulse Oximetry 98 Oxygen Delivery Method Room Air 07/10/22 13:35 07/10/22 14:00 07/10/22 14:00 Temperature Pulse Rate 84 84 Respiratory Rate 20 Blood Pressure 112/58 L Pulse Oximetry 99 98 Oxygen Delivery Method Room Air 07/10/22 14:30 07/10/22 14:30 07/10/22 15:06 Temperature Pulse Rate 84 83 Respiratory Rate 15 Blood Pressure 113/64 Pulse Oximetry 98 99 Oxygen Delivery Method 07/10/22 15:07 07/10/22 15:07 07/10/22 15:30 Temperature Pulse Rate 84 Respiratory Rate 19 Blood Pressure 132/56 L 113/55 L Pulse Oximetry 99 Oxygen Delivery Method 07/10/22 15:30 Temperature Pulse Rate 85 Respiratory Rate 18 Blood Pressure Pulse Oximetry 99 Oxygen Delivery Method Oxygen Delivery Method Room Air Narrative Exam Narrative: General:? Patient is well developed and well nourished, in no distress at this time. HEENT:? Normocephalic, atraumatic, extraocular muscles intact, oral pharynx is clear and mucous membranes are moist. Neck: supple and symmetric, trachea is midline, no cervical adenopathy. Negative for JVD Chest:? Normal AP diameter and contour without kyphoscoliosis, no tachypnea, equal chest rise bilaterally. Lungs:? CTA b/l no wheezing rhonchi or rales. Cardio:?RRR no m/r/g. Abdomen: S NT ND. No CVA tenderness. Musculoskeletal:? Muscle strength and tone are equal within normal limits, no deformity. Extremities: No edema or joint effusions. No cyanosis or clubbing. Skin:? Pale,? Warm to touch,dry and intact without rashes, ulcerations or petechiae.? Neuro:? Alert and orientated x3,? sensation to touch intact in all extremities, no gross deficits noted of cranial nerves. Psych:? Patient has a well-kept appearance, appropriate affect, mental status attitude thought context and judgment are appropriate for age. Objective ECG Impression: Normal sinus rhythm, no electrical alternans, no ST/T wave changes indicative of ischemia. As interpreted by me Labs 07/10/22 13:35 07/10/22 13:35 Labs: Laboratory Results - last 24 hr 07/10/22 07/10/22 07/10/22 13:35 13:35 13:35 WBC 7.0 RBC 3.01 L Hgb 10.2 L Hct 30.2 L MCV 100.4 H MCH 34.0 MCHC 33.9 RDW 14.3 Plt Count 231 Neut % (Auto) Not Reportable Lymph % (Auto) Not Reportable [place] % (Auto) Not Reportable Eos % (Auto) Not Reportable Baso % (Auto) Not Reportable Lymph # (Auto) Not Reportable [place] # (Auto) Not Reportable Baso # (Auto) Not Reportable Total Counted 100 Seg Neutrophils % 72.0 H Lymphocytes % (Manual) 15.0 L Monocytes % (Manual) 9.0 Eosinophils % (Manual) 4.0 Neutrophils # (Manual) 5040 RBC Morphology Normal morphology ESR PT 12.0 INR 1.0 APTT 31 D-Dimer Sodium 136 L Potassium 4.2 Chloride 103 Carbon Dioxide 24 BUN 52 H Creatinine 1.78 H Estimated GFR 38 L BUN/Creatinine Ratio 29.2 H Glucose 164 H Calcium 9.1 Magnesium 1.8 Total Bilirubin 0.6 AST 29 ALT 23 Alkaline Phosphatase 71 Total Creatine Kinase 48 L CK-MB (CK-2) TNP CK-MB (CK-2) Rel Index TNP Troponin I 0.167 H* C-Reactive Protein NT-Pro-B Natriuret Pep Total Protein 7.2 Albumin 3.8 Globulin 3.4 Albumin/Globulin Ratio 1.1 Lipase 27 SARS-CoV-2 (PCR) 07/10/22 07/10/22 07/10/22 13:35 13:35 13:35 WBC RBC Hgb Hct MCV MCH MCHC RDW Plt Count Neut % (Auto) Lymph % (Auto) [place] % (Auto) Eos % (Auto) Baso % (Auto) Lymph # (Auto) [place] # (Auto) Baso # (Auto) Total Counted Seg Neutrophils % Lymphocytes % (Manual) Monocytes % (Manual) Eosinophils % (Manual) Neutrophils # (Manual) RBC Morphology ESR 41 H PT INR APTT D-Dimer 1881 H Sodium Potassium Chloride Carbon Dioxide BUN Creatinine Estimated GFR BUN/Creatinine Ratio Glucose Calcium Magnesium Total Bilirubin AST ALT Alkaline Phosphatase Total Creatine Kinase CK-MB (CK-2) CK-MB (CK-2) Rel Index Troponin I C-Reactive Protein NT-Pro-B Natriuret Pep 355 Total Protein Albumin Globulin Albumin/Globulin Ratio Lipase SARS-CoV-2 (PCR) 07/10/22 07/10/22 07/10/22 13:35 14:00 15:30 WBC RBC Hgb Hct MCV MCH MCHC RDW Plt Count Neut % (Auto) Lymph % (Auto) [place] % (Auto) Eos % (Auto) Baso % (Auto) Lymph # (Auto) [place] # (Auto) Baso # (Auto) Total Counted Seg Neutrophils % Lymphocytes % (Manual) Monocytes % (Manual) Eosinophils % (Manual) Neutrophils # (Manual) RBC Morphology ESR PT INR APTT D-Dimer Sodium Potassium Chloride Carbon Dioxide BUN Creatinine Estimated GFR BUN/Creatinine Ratio Glucose Calcium Magnesium Total Bilirubin AST ALT Alkaline Phosphatase Total Creatine Kinase CK-MB (CK-2) CK-MB (CK-2) Rel Index Troponin I 0.154 H* C-Reactive Protein 0.8 NT-Pro-B Natriuret Pep Total Protein Albumin Globulin Albumin/Globulin Ratio Lipase SARS-CoV-2 (PCR) Negative Assessment & Plan Assessment & Plan narrative: 1. Syncope / left leg weakness - - unclear etiology / timeline given multiple stories presentation as discussed in HPI. Could represent syncopal episode, though patient reporting unilateral leg weakness and denies passing out. - will check MRI to rule out CVA as an etiology. Suspect weakness in setting of dehydration with possible orthostasis, given ARNAV and BUN elevation, however there is also concern with his pericardial effusion for a cardiac etiology. - Will check TTE to further evaluate effusion for evidence of tamponade, though suspect his effusion to be chronic. Attempting to get records from OSH for additional information on his prior workup. - continue IV fluids for now for suspected dehydration, but complete 1L bag only. - check orthostatic vitals - CTA negative for PE, d-dimer 188. 2. Pericardial effusion, possible acute on chronic - unclear etiology, as above requesting outside records but he reports no previous pericardiocentesis. Will await records prior to further evaluation as suspect chronic and probably not contributory. Suspect autoimmune etiology based on prior presentation and continued presence despite improvement in fevers and systemic symptoms. - TTE ordered as above. - ESR 41, CRP 0.8 3. ARNAV - suspect dehydration given recent heat and that the trail he walks has little shade. Will also see if tamponade on echo though low suspicion. CK slightly low so not rhabdo. - repeat labs ordered for AM 4. Myocardial injury - trended downward, no EKG evidence of ischemia and no chest pain. - TTE as above. 5. Diabetes - continue home insulin therapies. - medium ssi ordered - A1c ordered. Code: DNR, surrogate is patient's spouse Dispo: Observation, pending TTE I have utilized all available immediate resources to obtain, update, or review the patient's current medications. Additional history obtained via ER provider. I have reviewed patient's relevant labs, imaging, and previous documentation. Discussed plan of care with the patient. COVID-19 COVID-19 status: Negative
[2022-07-10] MEDS: SODIUM CHLORIDE 0.9% 1,000 ML 100 ML IV (18:10)
--- NOTE | 2022-07-10 18:36 | DI.MRI.S_ITS ---
PROCEDURE: MR HEAD/BRAIN WO CON INDICATIONS: Left weakness, please evaluate for CVA TECHNIQUE: Non-contrast axial T1 spin echo, axial T2 fast spin echo, sagittal and axial FLAIR, coronal T2 fast spin echo, axial gradient echo, axial diffusion and ADC through the brain. COMPARISON: None. FINDINGS: Image quality: Note is made of bilateral lens replacements. CSF spaces: Ventricles appear symmetric in size and shape. Basal cisterns are patent. No extra-axial fluid collections. Brain: There are multiple areas of abnormal diffusion-weighted signal seen involving the medial anterior aspect of the right frontal lobe. Associated dark signal can be seen on the ADC map. Developing T2 weighted signal can be seen at these sites. No intracranial mass effects. There is susceptibility artifact seen involving the left basal ganglia, which is attributed to remote hemorrhage. There is cerebral volume loss for age. There are periventricular and deep white matter chronic small vessel ischemic changes. Brainstem appears normal. Diffusion-weighted images show no acute ischemic insults. No chronic ischemic insults. Normal intravascular flow voids are present. Relatively prominent perivascular spaces are noted. Skull and face: Calvarial bone marrow is normal in signal. Orbits are normal. Note is made of bilateral lens replacements. Sinuses: There is moderate mucosal thickening seen involving ethmoid air cells and the maxillary sinuses. Milder mucosal thickening is seen elsewhere. No abnormal fluid is seen within the mastoid air cells. 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 Remote appearing hemorrhage (with hemosiderin staining) can be seen involving the left basal ganglia. Additional findings: Paranasal sinus disease Dictated by: Marino Bateman M.D. on 07/10/2022 at 18:52 Approved by: Marino Bateman M.D. on 07/10/2022 at 18:56
[2022-07-10] MEDS: INSULIN LISPRO 100 UNIT/ML 3ML VIAL SUBCUT (20:28)
[2022-07-10] MEDS: INSULIN GLARGINE 100 UNIT/ML 3ML PEN 12 UNIT SUBCUT (20:31)
[2022-07-10] MEDS: PRAVASTATIN 20 MG TABLET PO (20:31)
[2022-07-10] MEDS: HYDROXYCHLOROQUINE 200 MG TABLET PO (20:31)
[2022-07-11] VITALS (13 sets, daily range): BP systolic 115–131; BP diastolic 57–73; PULSE 75–104; RESP 17–18; TEMP 36.3–37.3; O2SAT 94–99
[2022-07-11] MEDS: INSULIN LISPRO 100 UNIT/ML 3ML VIAL SUBCUT ×6 (02:44→16:54)
--- NOTE | 2022-07-11 02:45 | PC.NURSE ---
Addendum entered by Bret Elmore R.N. 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 Original Note: Nightshift Pt had a BG at dinner time 2100 of 315, was giving 5 units of correction per MAR fast acting insulin, recheck of BG at 0230 BG 354, Provider notified, Dr Minor gave verbal order for 5 units of correction per MAR Scale. RN repeated back order and confirmed. Pt will be rechecked at 0600. Pt denies nausea, vomit, pain, or lightheadedness.
[2022-07-11 07:26] LABS: Hemoglobin 9.9 g/dL (13.5-17.5); Mean Corpuscular HGB Conc 34.2 % (30-36); Mean Corpuscular Hemoglobin 34.3 PG (26-34); Mean Corpuscular Volume 100.3 fL (80-100); Platelet Count 208 X10^3/uL (150-400); Red Blood Cell Count 2.89 X10^6/uL (4.5-5.9); Red Cell Distribution Width 14.6 % (11.6-14.8); White Blood Cell Count 4.6 X10^3/uL (4.5-11.0)
[2022-07-11 07:27] LABS: Add Manual Diff / Slide Review YES
[2022-07-11 07:39] LABS: BUN Creatinine Ratio 33.3 (6-22); Blood Urea Nitrogen 39 mg/dL (9-20); Calcium 8.5 mg/dL (8.4-10.2); Carbon Dioxide 18 mmol/L (22-32); Chloride 103 mmol/L (98-107); Estimated Glomerular Filt Rate > 60 mL/min (>60); Glucose 368 mg/dL (80-110); HEMOLYSIS < 15 (0-50); Magnesium 1.7 mg/dL (1.6-2.3); Potassium 4.6 mmol/L (3.4-5.1); Sodium 132 mmol/L (137-145)
[2022-07-11 08:02] LABS: Neutrophils Absolute Manual 3266 /uL (3000-5900); RBC Morphology Normal Morphology; Total Cells Counted 100
[2022-07-11 08:11] LABS: Ferritin 156 ng/mL (18-464)
[2022-07-11] MEDS: HYDROXYCHLOROQUINE 200 MG TABLET PO ×2 (08:39→21:38)
--- NOTE | 2022-07-11 10:52 | PT.IIE ---
Surgical History (Last Reviewed 07/10/22 @ 17:06 by Eugene Cintron DO) History of cataract surgery Total knee replacement status Medical History (Last Reviewed 07/10/22 @ 17:06 by Eugene Cintron DO) Cataract COPD (chronic obstructive pulmonary disease) Diabetes History of colon polyps Ingrowing toenail of left foot Physical Therapy Inpatient Evaluation/Re-Eval M1 PT/OT-IP Prior Functional Status Start: 07/11/22 10:29 Freq: NEEDED Status: Active Protocol: Document 07/11/22 10:29 ES (Rec: 07/11/22 10:52 ES [id number]) Medical Review Prior Functional Status Medical History Reviewed Yes Diet/Fluid Consistency Regular Communication WFL, wears bifocals Mobility and Gait Ambulates with 4WW for limited distances. sometimes assists with mobility such as getting in/out of bed and chairs. Activities of Daily Living and IADL's assists with socks, otherwise mostly independent. Prior Functional Level (Other details) Able to drive. Social History Household Members spouse,family Living Arrangements House Number of Floors (Floors) Two Floors Number of Stairs To Enter/Railing? No stairs to enter. 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 Home Environment High Toilet,Walk in Shower,Tub /Shower Doors Home Equipment Four Wheel Walker,Shower Seat with Backrest,Hand Held Shower Employment Status Retired Additional Social History Comment is also retired and available to assist during the day. Patient stated she is working on acquiring a FWW for him. M2 PT-IP Current Condition Start: 07/11/22 10:29 Freq: NEEDED Status: Active Protocol: Document 07/11/22 10:29 ES (Rec: 07/11/22 10:52 ES [id number]) Physical Therapy Current Condition Current Condition Evaluation Date 07/11/22 Treatment Diagnosis Syncope vs CVA, L leg weakness Onset Date 07/10/22 M3 PT-IP Subjective Start: 07/11/22 10:29 Freq: NEEDED Status: Active Protocol: Document 07/11/22 10:29 ES (Rec: 07/11/22 10:52 ES [id number]) Subjective Physical Therapy Visit Type Type Initial Evaluation Visit Start Time 09:10 Visit Stop Time 09:35 Total Visit Minutes 25 Physical Therapy Visit Comments Patient Comments Patient resting comfortably in bed, agreeable to work with PT. Stated he feels much better today. Offered use of 4WW but patient stated he preferred to use FWW and that his is going to pick one up today. Therapy Pain Assessment Pain Present Pain Present Denied Pain M4 PT-IP Mobility and Gait Start: 07/11/22 10:29 Freq: NEEDED Status: Active Protocol: Document 07/11/22 10:29 ES (Rec: 07/11/22 10:52 ES [id number]) PT-Bed Mobility Assessment Supine to Sit Supine to Sit Independent Scooting Scooting to Edge of Bed Independent PT-Transfer Assessment Sit to and From Stand Sit to and from Stand Standby Assistance,Use of Upper Extremities Equipment Transfer Assistive Device Gait Belt,Front Wheeled Walker Orthotic/Prosthetic Devices or Brace: No Transfers Transfer Destination Chair Transfer Technique Ambulation Transfer Ability Level of Assist Standby Assistance,Use of Upper Extremities Comments Mobility Comments Patient performed bed mobility with HOB flat and no use of rail without assist. Cues provided for hand and FWW placement during transfers for safety. Gait Assessment Gait Gait Assistance Required: Standby Assistance Distance (Feet) 250 Assistive Devices Assistive Device Gait Belt,Front Wheeled Walker Gait Deviations General Gait Pattern Decreased Stride Length, Decreased Feet Clearance, Flexed Trunk Factors Limiting Gait Function Factors Limiting Gait Function Limited Range of Motion,Poor Balance Comments Gait Comments Cues provided for upright posture and keeping FWW close to body especially when turning to increase safety. Patient had good recall and follow through. No lateral lean or LOB with ambulation. Stair Climbing Assessment Evaluation Level of Assist On Stairs Standby Assistance Devices Stair Climbing Assistive Devices Left Railing,Right Railing Technique/Endurance Stair Climbing Direction Ascend and Descend Stair Climbing Technique Step to Step Number of Steps Climbed 3 Query Text: Stair Climbing Set # Repetitions (reps) 1 Comments Stair Climbing Comments Required extra time to complete, no LOB. PT-Balance Assessment Sitting Balance and Reactions Static Sitting Balance Ability Normal Dynamic Sitting Balance Ability Normal Standing Balance and Reactions Static Standing Balance Ability Good Dynamic Standing Balance Ability Good Device Used FWW Comments Other Balance Tests/Deviations/Treatment 4-stage balance test = 10/7/0/ : 0 indicating high fall risk M5 PT-IP Objective Assessments Start: 07/11/22 10:29 Freq: NEEDED Status: Active Protocol: Document 07/11/22 10:29 ES (Rec: 07/11/22 10:52 ES [id number]) Orientation Orientation/Cognition Level of Alertness Alert Orientation Name,Age,Birthday,Year,Day of Week,Place,Situation Language Function Ability No Deficits Noted Safety Awareness Understands Safety Issues Memory Description No Deficits Noted Comments Able to follow multi-step commands. Gross Range of Motion Upper Extremity ROM Assessment Right Impaired Impairments L shoulder flexion/abduction limited to 90 degrees (patient stated this is not new). B wrist and hand ROM limited 2 /2 arthritis. Lower Extremity ROM Assessment Within Functional Limits Strength Upper Extremity Strength Assessment Within Functional Limits Lower Extremity Strength Assessment Within Functional Limits Comments Strength Comments L tricep extension was 1 grade less than R, otherwise UE/LE strength equal B. Coordination Assessment Gross Coordination Gross Coordination WNL Assessment Finger to Nose Test Normal Performance Pronation/Supination Test Normal Performance Foot Tapping Test Normal Performance Heel on Bonilla Test Normal Performance Sensation Assessment Sensation Gross Sensation WNL Muscle Tone Muscle Tone WNL Yes Other Assessments Other Other Assessments Peripheral vision normal and equal B, normal smooth pursuits B. M6 PT-IP Treatment Start: 07/11/22 10:29 Freq: NEEDED Status: Active Protocol: Document 07/11/22 10:29 ES (Rec: 07/11/22 10:52 ES [id number]) Physical Therapy Treatment Education Education Provided Safety M7 PT-IP Assessment and Plan Start: 07/11/22 10:29 Freq: NEEDED Status: Active Protocol: Document 07/11/22 10:29 ES (Rec: 07/11/22 10:52 [id number]) PT Summary Assessment and Plan Potential Status of Condition at Evaluation Stable Summary Assessment Summary Patient is a 82 year old male referred to PT with possible CVA with L-sided weakness. With eval today, patient had no deficits with vision, tone, sensation, strength with the exception of L tricep, and coordination. He was able to demonstrate all mobility tasks with SBA using FWW without LOB. He denied lightheadedness /dizziness throughout. He appears to be at baseline level of function which is some assistance from spouse. Patient is appropriate to d/c home with spouse; no further skilled therapy is indicated during hospital stay. Frequency of Treatment Frequency Of Treatment Discharge Precautions Other Precautions Fall risk Recommendations To Nursing Amount of Assist Needed Standby Assistance Discharge Recommendations PT Discharge Recommendations Home with Assistance Equipment Needed for Home Before None; is getting FWW Discharge Transportation Needs at Discharge Private Vehicle
--- NOTE | 2022-07-11 12:33 | P.DS_ITS ---
History of Present Illness History of Present Illness Date Patient Seen: 07/11/22 Time Patient Seen: 12:33 Chief complaint: PT was told to come for MRI from his DR Narrative: ?This is a 80-year-old male with a past medical history of type 1 diabetes, rheumatoid arthritis on hydroxychloroquine and sulfasalazine, hypertension, hyperlipidemia who presents with an abrupt onset of weakness starting this afternoon. Patient was walking a local trail in town when he developed difficulty moving his left leg. He denied pain, though did have some tingling but denied numbness. This was yesterday according to the patient and reports that it comes and goes but is very vague with his responses today. He thinks it lasted around 30 minutes. According to the ER, stated that he fell asleep immediately and was unarousable for around 2 minutes and lossed his tone. After about 2 minutes he was weak and required assistance to get him back home. He reports no recent fever, chills, abdominal pain, chest pain, nausea or vomiting, LE swelling, joint pains, weight loss, hemoptysis. He was here approximately 2 years ago for a pericardial effusion and fever, was transferred to [facility], he reports they did not find a cause but am awaiting records at this time from that facility. Patient reports he wears a glucose monitor and was not hypoglycemic at the time of these incidents. In the emergency room, his vitals were unremarkable, and labroatory evaluation showed a mild anemia with Hg 10.2 (stable from previous labs), creatinine of 1.78, and d-dimer of 1881. Troponin was 0.156 and downtrended on repeat to 0.154. EKG showed NSR without evidence of active ischemia. COVID was negative. Glucose was 164. CT head was unremarkable, CXR showed possible small pleural effusion, CT angio performed which showed mod-large pericardial effusion and bilateral pleural effusions, increased in size from prior. He was admitted for further managemet and evaluation of syncope vs CVA. Discharge Providers Provider Date of admission: 07/10/22 16:49 Discharge Date: 07/11/22 Primary care physician: Cici Jones MD Consults: 07/10/22 18:41 Consult to Occupational Therapy Evaluate & Treat Comment: Physician Instructions: Evaluate and treat Consult to Physical Therapy Evaluate & Treat Comment: Physician Instructions: Evaluate and Treat Discharge provider: Eugene Cintron DO Exam Vital Signs (past 8 hours): - 07/11/22 05:00 07/11/22 08:00 07/11/22 09:00 Temperature 98.2 F Pulse Rate 83 Pulse Rate [Orthostatic Lying] Pulse Rate [Orthostatic Sitting] Pulse Rate [Orthostatic Standing] Respiratory Rate 17 Blood Pressure 115/63 Blood Pressure [Orthostatic Lying] Blood Pressure [Orthostatic Sitting] Blood Pressure [Orthostatic Standing] Pulse Oximetry 98 94 98 Oxygen Delivery Method Room Air Room Air Oxygen Flow Rate 0 0 07/11/22 11:31 Temperature Pulse Rate Pulse Rate [Orthostatic Lying] 89 Pulse Rate [Orthostatic Sitting] 90 Pulse Rate [Orthostatic Standing] 104 H Respiratory Rate Blood Pressure Blood Pressure [Orthostatic Lying] 124/61 Blood Pressure [Orthostatic Sitting] 131/67 Blood Pressure [Orthostatic Standing] 127/69 Pulse Oximetry Oxygen Delivery Method Oxygen Flow Rate Oxygen Delivery Method Room Air Oxygen Flow Rate 0 Objective Labs 07/11/22 06:05 07/11/22 06:05 Labs: Laboratory Results - last 24 hr 07/10/22 07/10/22 07/10/22 13:35 13:35 13:35 WBC 7.0 RBC 3.01 L Hgb 10.2 L Hct 30.2 L MCV 100.4 H MCH 34.0 MCHC 33.9 RDW 14.3 Plt Count 231 Neut % (Auto) Not Reportable Lymph % (Auto) Not Reportable Churchill % (Auto) Not Reportable Eos % (Auto) Not Reportable Baso % (Auto) Not Reportable Lymph # (Auto) Not Reportable Churchill # (Auto) Not Reportable Baso # (Auto) Not Reportable Total Counted 100 Seg Neutrophils % 72.0 H Lymphocytes % (Manual) 15.0 L Monocytes % (Manual) 9.0 Eosinophils % (Manual) 4.0 Basophils % (Manual) Neutrophils # (Manual) 5040 RBC Morphology Normal morphology ESR PT 12.0 INR 1.0 APTT 31 D-Dimer Sodium 136 L Potassium 4.2 Chloride 103 Carbon Dioxide 24 BUN 52 H Creatinine 1.78 H Estimated GFR 38 L BUN/Creatinine Ratio 29.2 H Glucose 164 H Calcium 9.1 Magnesium 1.8 Ferritin Total Bilirubin 0.6 AST 29 ALT 23 Alkaline Phosphatase 71 Total Creatine Kinase 48 L CK-MB (CK-2) TNP CK-MB (CK-2) Rel Index TNP Troponin I 0.167 H* C-Reactive Protein NT-Pro-B Natriuret Pep Total Protein 7.2 Albumin 3.8 Globulin 3.4 Albumin/Globulin Ratio 1.1 Lipase 27 SARS-CoV-2 (PCR) 07/10/22 07/10/22 07/10/22 13:35 13:35 13:35 WBC RBC Hgb Hct MCV MCH MCHC RDW Plt Count Neut % (Auto) Lymph % (Auto) Churchill % (Auto) Eos % (Auto) Baso % (Auto) Lymph # (Auto) Churchill # (Auto) Baso # (Auto) Total Counted Seg Neutrophils % Lymphocytes % (Manual) Monocytes % (Manual) Eosinophils % (Manual) Basophils % (Manual) Neutrophils # (Manual) RBC Morphology ESR 41 H PT INR APTT D-Dimer 1881 H Sodium Potassium Chloride Carbon Dioxide BUN Creatinine Estimated GFR BUN/Creatinine Ratio Glucose Calcium Magnesium Ferritin Total Bilirubin AST ALT Alkaline Phosphatase Total Creatine Kinase CK-MB (CK-2) CK-MB (CK-2) Rel Index Troponin I C-Reactive Protein NT-Pro-B Natriuret Pep 355 Total Protein Albumin Globulin Albumin/Globulin Ratio Lipase SARS-CoV-2 (PCR) 07/10/22 07/10/22 07/10/22 13:35 14:00 15:30 WBC RBC Hgb Hct MCV MCH MCHC RDW Plt Count Neut % (Auto) Lymph % (Auto) Churchill % (Auto) Eos % (Auto) Baso % (Auto) Lymph # (Auto) Churchill # (Auto) Baso # (Auto) Total Counted Seg Neutrophils % Lymphocytes % (Manual) Monocytes % (Manual) Eosinophils % (Manual) Basophils % (Manual) Neutrophils # (Manual) RBC Morphology ESR PT INR APTT D-Dimer Sodium Potassium Chloride Carbon Dioxide BUN Creatinine Estimated GFR BUN/Creatinine Ratio Glucose Calcium Magnesium Ferritin Total Bilirubin AST ALT Alkaline Phosphatase Total Creatine Kinase CK-MB (CK-2) CK-MB (CK-2) Rel Index Troponin I 0.154 H* C-Reactive Protein 0.8 NT-Pro-B Natriuret Pep Total Protein Albumin Globulin Albumin/Globulin Ratio Lipase SARS-CoV-2 (PCR) Negative 07/11/22 07/11/22 07/11/22 06:05 06:05 06:05 WBC 4.6 RBC 2.89 L Hgb 9.9 L Hct 29.0 L MCV 100.3 H MCH 34.3 H MCHC 34.2 RDW 14.6 Plt Count 208 Neut % (Auto) Not Reportable Lymph % (Auto) Not Reportable Churchill % (Auto) Not Reportable Eos % (Auto) Not Reportable Baso % (Auto) Not Reportable Lymph # (Auto) Not Reportable Churchill # (Auto) Not Reportable Baso # (Auto) Not Reportable Total Counted 100 Seg Neutrophils % 71.0 H Lymphocytes % (Manual) 13.0 L Monocytes % (Manual) 2.0 Eosinophils % (Manual) 11.0 H Basophils % (Manual) 3.0 H Neutrophils # (Manual) 3266 RBC Morphology Normal morphology ESR PT INR APTT D-Dimer Sodium 132 L Potassium 4.6 Chloride 103 Carbon Dioxide 18 L BUN 39 H Creatinine 1.17 Estimated GFR > 60 BUN/Creatinine Ratio 33.3 H Glucose 368 H D Calcium 8.5 Magnesium 1.7 Ferritin 156 Total Bilirubin AST ALT Alkaline Phosphatase Total Creatine Kinase CK-MB (CK-2) CK-MB (CK-2) Rel Index Troponin I C-Reactive Protein NT-Pro-B Natriuret Pep Total Protein Albumin Globulin Albumin/Globulin Ratio Lipase SARS-CoV-2 (PCR) [facility] Medical History Cataract COPD (chronic obstructive pulmonary disease) Diabetes History of colon polyps Ingrowing toenail of left foot Surgical History History of cataract surgery Total knee replacement status Social History household members: spouse and family Smoking Status: Never smoker alcohol intake: former Discharge Plan Discharge orders & Medications Prescriptions: No Action fluticasone propion-salmeterol [Advair Diskus] 500-50 mcg/dose blister with device 1 inh INHALATION DAILY pravastatin 20 mg tablet 20 mg PO BEDTIME lisinopril 5 mg tablet 5 mg PO DAILY hydroxychloroquine 200 mg tablet 200 mg PO BID insulin aspart U-100 [Novolog FlexPen U-100 Insulin] 100 unit/mL (3 mL) insulin pen 6 unit SUBCUT TIDWMEAL insulin glargine [Lantus Solostar U-100 Insulin] 100 unit/mL (3 mL) insulin pen 12 unit SUBCUT BEDTIME sulfasalazine 500 mg tablet 500 mg PO BID Rx Instructions: Take 2 tablets twice a day for arthritis vitamin B complex [Vitamin B Complex-100] Tablet 1 tab PO DAILY Follow up/Referrals: Cici Jones MD [Primary Care Provider] - Discharge Data Primary Care Provider: Cici Jones Quality VTE Deep Vein Thrombosis/Pulmonary Embolism Present on Admission: No
--- NOTE | 2022-07-11 12:45 | CM.DANOTE ---
Patient is an 82 yo male who was admitted on 07/10/22 for Syncope vs CVA. Pt has MCR and [employer] for insurance and his PCP is [facility]. EMR was reviewed. Per MD, pt with type 1 diabetes, arthritis, and admitted for Bilat PE and CVA r/o. Per MRI, subacute infarcts. Echo ordered and pending. Per PT, pt eval complete and pt with no deficits and appears to be back to baseline of ambulation independently with walker and gets some assist from supportive spouse as needed and appears baseline for safe d/c home and outpt f/u. Pt active and mostly independent at baseline and lives in [place] with spouse and has local supportive friends. Per MD, pt now medically stable to d/c home with no identified barriers to discharge. No bedside assessment completed at this time due to triage needs and no discharge needs. Plan: Patient to d/c home today via spouse POV and outpt f/u. No SW needs at this time, please refer if indicated. Raquel Higgins MSW
--- NOTE | 2022-07-11 13:51 | OT.IP.EVAL ---
Current Diagnoses Weakness (07/10/22) Past Medical History (Last Reviewed 07/10/22 @ 17:06 by Eugene Cintron DO) Cataract COPD (chronic obstructive pulmonary disease) Diabetes History of colon polyps Ingrowing toenail of left foot Surgical History (Last Reviewed 07/10/22 @ 17:06 by Eugene Cintron DO) History of cataract surgery Total knee replacement status Occupational Therapy Inpatient Evaluation/Re-Eval M1 PT/OT-IP Prior Functional Status Start: 07/11/22 10:29 Freq: NEEDED Status: Active Protocol: Document 07/11/22 15:07 CGR (Rec: 07/11/22 15:52 CGR [id number]) Medical Review Prior Functional Status Medical History Reviewed Yes Diet/Fluid Consistency Regular Communication WFL, wears bifocals Mobility and Gait Ambulates with 4WW for limited distances. sometimes assists with mobility such as getting in/out of bed and chairs. After discussion with the , it appears that pt was ambulating without AD ~1 month ago. Activities of Daily Living and IADL's assists with socks, otherwise mostly independent. Pt states it now takes much longer to perform tasks recently and now has been assisting to perform tasks to help with energy conservation . Prior Functional Level (Other details) Able to drive. Social History Household Members spouse Living Arrangements House Number of Floors (Floors) Two Floors Number of Stairs To Enter/Railing? No stairs to enter. 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 Home Environment High Toilet,Walk in Shower,Tub /Shower Doors Home Equipment Four Wheel Walker,Shower Seat with Backrest,Hand Held Shower Employment Status Retired Additional Social History Comment is also retired and available to assist during the day. Patient stated she is working on acquiring a FWW for him. 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 Diagnosis Onset Date 07/10/22 M3 OT- IP Subjective and Pain Start: 07/11/22 15:06 Freq: Status: Active Protocol: Document 07/11/22 15:07 CGR (Rec: 07/11/22 15:52 CGR [id number]) OT- Subjective Occupational Therapy Visit Type Type Initial Evaluation Visit Start Time 13:10 Visit Stop Time 13:51 Total Visit Minutes 41 Notes Pt's present throughout. OT Pain Assessment Pain When Pain Assessed At Rest Pain Present Pain Present Denied Pain M4 OT- IP ADL's Start: 07/11/22 15:06 Freq: Status: Active Protocol: Document 07/11/22 15:07 CGR (Rec: 07/11/22 15:52 CGR [id number]) OT [id number] Comments OT Self-Feeding Comments not meal time OT ADL-Grooming Comments OT Grooming Comments not performed OT ADL-Oral Care Comments Oral Care Comments not performed OT ADL-Dressing General Eval Upper Body Dressing Ability Minimal Assistance Lower Body Dressing Ability Independent Areas Needing Assistance Button-Up Shirt/Blouse, Underpants/Brief,Pants/Shorts Comments OT Dressing Comments Pt took 25 minutes to doff underwear then don clean underwear, don pants, and don a button up shirt with min a. OT ADL-Toileting Comments OT Toileting Comments not performed OT ADL-Bathing Comments OT Bathing Comments not performed M5 OT- IP IADL's Start: 07/11/22 15:06 Freq: Status: Active Protocol: Document 07/11/22 15:07 CGR (Rec: 07/11/22 15:52 CGR [id number]) OT-Instrumental Activities of Daily Living Deficits IADL Deficits Identified Deficits Home Safety Awareness Awareness of Need for Assistance at Home Decreased Awareness Ability to Problem Solve Emergency Unable to Problem Solve Situations Medication Management Medication Management Comments Concerns regarding pt's ability and pt's ability to perform Money Management Money Management Comments Concerns regarding pt's ability and pt's ability to perform Meal Preparation Meal Preparation Caregiver Provides Assist Skin Toggler Skin Toggler Caregiver Provides Assist Driving Driving Concerns Identified Regarding Safety M6 OT- IP Functional Cognition Start: 07/11/22 15:06 Freq: Status: Active Protocol: Document 07/11/22 15:07 CGR (Rec: 07/11/22 15:52 CGR [id number]) Cognitive Factors Limiting Selfcare Function Cognitive Ability Level of Alertness Confusional State Patient Orientation Name,Age,Birthday,Date,Year, Place,Situation Attention Span Ability Capable of Focused Attention, Capable of Sustained Attention Ability to Follow Commands Able to Follow One Step Commands with Increased Time, Able to Follow One Step Commands with Repetition Cognitive Comments Cognitive Assessment Comments Pt questioned on location and date. He was able to state that it was the and 2022 but initially he stated that it was 01/11. When asked he reported that was November. He then reported that it was the month and was unable to state what month the 7th month is. Pt would benefit from formal cog assessment. This administrative underwriter left the room to obtain formal cog assessment but upon returing, pt's states that she doesn't want him to take a cognitive assessment d/t the reprocussions of how people will treat him and concerns for driving. Educated pt's that the assessment isn't shared beyond the people in the hospital that have a need to know per HIP[employer]. Pt's became increasingly agitated regarding the cognitive assessment, although still kind, and started naming other reasons that now would not be a good time for a cogntive assessment. This administrative underwriter stated that its ok if they would prefer to not do the cog assessment and ended the session. OT- Vision and Hearing OT- Hearing Assessment OT- Hearing Assessment WFL OT- Vision Assessment Visual Acuity Glasses All The Time Visual Attentiveness WFL Occular Pursuits WFL Visual Convergence WFL Visual [place] WFL Vision Assessment Comments Pt wears bifocals. Pt states in session that when he looks at the clock on the wall that it is moving up and down. M7 OT- IP Mobility and Balance Start: 07/11/22 15:06 Freq: Status: Active Protocol: Document 07/11/22 15:07 CGR (Rec: 07/11/22 15:52 CGR [id number]) OT-Transfer Assessment Sit to and From Stand Sit to and from Stand Standby Assistance Transfers Transfer Ability Standby Assistance Technique Transfer Destination Chair Transfer Technique Stand Step Pivot Devices Transfer Assistive Devices Front Wheeled Walker Comments Mobility Comments Pt stood from chair with sBA and multiple attempts to get into standing. Pt needs VC for hand placement but is inconsistent with utilizing VC . Pt then ambualted to the bench in the room for dressing . OT- Gait Assessment Gait Gait Assistance Required: Standby Assistance Assistive Devices Assistive Device None,Front Wheeled Walker OT- Balance Assessment Sitting Balance and Reactions Static Sitting Balance Ability Fair Dynamic Sitting Balance Ability Fair M8 OT- IP Objective Assessments Start: 07/11/22 15:06 Freq: Status: Active Protocol: Document 07/11/22 15:07 CGR (Rec: 07/11/22 15:52 CGR [id number]) OT Gross Range of Motion Upper Extremity Range of Motion Assessment Left Impaired ROM Impairments L shld 0-90, pt states this is from a previous injury. OT Strength Upper Extremity Strength Assessment Within Functional Limits Comments Strength Comments 4 to 4+/5 throughout. OT- Coordination Assessment Upper Extremity Finger to Nose Test Within Functional Limits Finger Tapping Test Within Functional Limits Comments Coordination Comments Pt is able to do coordination tasks but with significant extra time. OT-Muscle Tone Assessment Muscle Tone WNL Yes OT Sensation Assessment Edema Edema Absent M9 OT- IP Assessment and Plan Start: 07/11/22 15:06 Freq: Status: Active Protocol: Document 07/11/22 15:07 CGR (Rec: 07/11/22 15:52 CGR [id number]) OT Summary Assessment and Plan Potential Rehabilitation Potential Fair Analytic Complexity at Evaluation Moderate Summary OT Impairments Range of Motion,Balance, Coordination,Functional Cognition,Functional Mobility, Grooming,Dressing,Toileting, Bathing,Toilet Transfers, Shower Transfers,Activity Tolerance Progress Towards Goals Slow Progress due to Medical Issues,Slow Progress due to Activity Tolerance,Slow Progress due to Cognition Assessment Summary Pt presents as a moderate complexity evaluation s/p admit for weakness. MRI shows multiple areas of subacute infarct medial R frontal lobe and remote hemorrhage L basil ganglia. Per the pt and , pt has had a significant decline in abilities and endurance in about the last month. Pt and needed extra time and questioning to get specific details regarding when pt's symptoms started. Pt's indicated concern for others perception of cognition prior to this administrative underwriter testing pt's cognition. Pt's and subsequently pt refused testing. Pt would likely benefit from acute rehab services given that the pt has had such a significant decline in abilities in the last month. Given pt's endurance acute therapy might be more intensive than he is able to do. Recommend d/c to home with family support and outpatient vs home health therapies to include occupational therapy. Goals Self-Feeding Goal Independent Grooming Goal Independent Dressing Goal Independent Toileting Goal Independent Bathing Goal Independent Toilet Transfer Goal Independent Shower Transfer Goal Independent Days to Meet Goals 15 Frequency of Treatment Frequency Of Treatment Once a Day Treatment Plan OT Treatment Plan ADL Training,Functional Cognition Training,Functional Mobility,Therapeutic Exercises ,Patient/Family Education, Discharge Planning Other Treatment Recommendations and Next cog assessment if agreeable, Treatment Focus shower, energy conservation education Discharge Recommendations OT Discharge Recommendations Home with Assistance,Home Health Transportation Needs at Discharge Private Vehicle
--- NOTE | 2022-07-11 15:24 | P.PN_ITS ---
Subjective Subjective Interval history: 82 year old male, admitted with weakness secondary to subacute CVA seen on MRI. Discussed TTE with cardiology today and there is no significant change from prior, his outpatient process improvement analyst does not think there is a mass on the valve, but likely calcifications and a poor quality study. He did well with PT, but struggled with OT today. Spouse refused cognitive study at this time. She is worried about his hyperglycemia today thinking it is contributing to his weakness. He may be eating more carbohydrates here than he does at home, though history has been varied between patient and spouse. Also discussed the subacute stroke, but they seemed less concerned about that at this time. Exam Vital Signs (past 8 hours): - 07/11/22 08:00 07/11/22 09:00 07/11/22 11:31 Temperature 98.2 F Pulse Rate 83 Pulse Rate [Orthostatic Lying] 89 Pulse Rate [Orthostatic Sitting] 90 Pulse Rate [Orthostatic Standing] 104 H Respiratory Rate 17 Blood Pressure 115/63 Blood Pressure [Orthostatic Lying] 124/61 Blood Pressure [Orthostatic Sitting] 131/67 Blood Pressure [Orthostatic Standing] 127/69 Pulse Oximetry 94 98 Oxygen Delivery Method Room Air Oxygen Flow Rate 0 0 07/11/22 13:00 Temperature Pulse Rate Pulse Rate [Orthostatic Lying] Pulse Rate [Orthostatic Sitting] Pulse Rate [Orthostatic Standing] Respiratory Rate Blood Pressure Blood Pressure [Orthostatic Lying] Blood Pressure [Orthostatic Sitting] Blood Pressure [Orthostatic Standing] Pulse Oximetry 99 Oxygen Delivery Method Room Air Oxygen Flow Rate 0 Oxygen Delivery Method Room Air Oxygen Flow Rate 0 Narrative Exam Narrative: General:? Patient is well developed and well nourished, in no distress at this time. HEENT:? Normocephalic, atraumatic, extraocular muscles intact, oral pharynx is clear and mucous membranes are moist. Neck: supple and symmetric, trachea is midline, no cervical adenopathy. Negative for JVD Chest:? Normal AP diameter and contour without kyphoscoliosis, no tachypnea, equal chest rise bilaterally. Lungs:? CTA b/l no wheezing rhonchi or rales. Cardio:?RRR no m/r/g. Abdomen: S NT ND. No CVA tenderness. Musculoskeletal:? Muscle strength and tone are equal within normal limits, no deformity. Extremities: No edema or joint effusions. No cyanosis or clubbing. Skin:? Pale,? Warm to touch,dry and intact without rashes, ulcerations or petechiae.? Neuro:? Alert and orientated x3,? sensation to touch intact in all extremities, no gross deficits noted of cranial nerves. Psych:? Patient has a well-kept appearance, appropriate affect, mental status attitude thought context and judgment are appropriate for age. Objective Labs 07/11/22 06:05 07/11/22 06:05 Labs: Laboratory Results - last 24 hr 07/10/22 07/10/22 07/10/22 13:35 13:35 15:30 WBC RBC Hgb Hct MCV MCH MCHC RDW Plt Count Neut % (Auto) Lymph % (Auto) [place] % (Auto) Eos % (Auto) Baso % (Auto) Lymph # (Auto) [place] # (Auto) Baso # (Auto) Total Counted Seg Neutrophils % Lymphocytes % (Manual) Monocytes % (Manual) Eosinophils % (Manual) Basophils % (Manual) Neutrophils # (Manual) RBC Morphology ESR 41 H Sodium Potassium Chloride Carbon Dioxide BUN Creatinine Estimated GFR BUN/Creatinine Ratio Glucose Calcium Magnesium Ferritin Troponin I 0.154 H* C-Reactive Protein 0.8 07/11/22 07/11/22 07/11/22 06:05 06:05 06:05 WBC 4.6 RBC 2.89 L Hgb 9.9 L Hct 29.0 L MCV 100.3 H MCH 34.3 H MCHC 34.2 RDW 14.6 Plt Count 208 Neut % (Auto) Not Reportable Lymph % (Auto) Not Reportable [place] % (Auto) Not Reportable Eos % (Auto) Not Reportable Baso % (Auto) Not Reportable Lymph # (Auto) Not Reportable [place] # (Auto) Not Reportable Baso # (Auto) Not Reportable Total Counted 100 Seg Neutrophils % 71.0 H Lymphocytes % (Manual) 13.0 L Monocytes % (Manual) 2.0 Eosinophils % (Manual) 11.0 H Basophils % (Manual) 3.0 H Neutrophils # (Manual) 3266 RBC Morphology Normal morphology ESR Sodium 132 L Potassium 4.6 Chloride 103 Carbon Dioxide 18 L BUN 39 H Creatinine 1.17 Estimated GFR > 60 BUN/Creatinine Ratio 33.3 H Glucose 368 H D Calcium 8.5 Magnesium 1.7 Ferritin 156 Troponin I C-Reactive Protein PFSH Medical History Cataract COPD (chronic obstructive pulmonary disease) Diabetes History of colon polyps Ingrowing toenail of left foot Surgical History History of cataract surgery Total knee replacement status Social History household members: spouse and family Smoking Status: Never smoker alcohol intake: former Assessment & Plan Assessment & Plan narrative: 1. Syncope / left leg weakness - subacute CVA - present on amission. - unclear etiology / timeline given multiple stories presentation as discussed in HPI. Could represent syncopal episode, though patient reporting unilateral leg weakness and denies passing out. - MRI does show subacute infarcts on the R, both small. As well as a prior area of small hemorrhage on the L. This seems consistent with cerebral amyloid angiopathy. In the setting of this will not start asa and continue home pravastatin. - TTE to further evaluate effusion for evidence of tamponade showed possible aortic valve mass, though in discussion with his process improvement analyst Dr. Low today there is no change compared to prior studies and continued follow up with regular echocardiograms for his effusion is sufficient for monitoring. Do not believe effusion contributing to his symptoms. Cannot anticoagulate given angiopathy. - orthostatic vitals unremarkable. - CTA negative for PE, d-dimer 188 - spouse refused cognitive eval, recommend formally as an outpatient. 2. Pericardial effusion, possible acute on chronic - followed by cardiology, suspect related to RA based on outpatient notes reviewed today. - TTE as above. - ESR 41, CRP 0.8 3. ARNAV - suspect dehydration given recent heat and that the trail he walks has little shade. ARNAV improved today on repeat labs after hydration. 4. Myocardial injury - trended downward, no EKG evidence of ischemia and no chest pain. - TTE as above. 5. Diabetes - continued home insulin therapies but marked hyperglycemia today. Increase to 15 U lantus tonight and 8U TID with meals. - medium ssi ordered - A1c pending. Code: DNR, surrogate is patient's spouse Dispo: Inpatient. Probable discharge home tomorrow. I have utilized all available immediate resources to obtain, update, or review the patient's current medications. Additional history obtained via ER provider. I have reviewed patient's relevant labs, imaging, and previous documentation. Discussed plan of care with the patient. COVID-19 COVID-19 status: Negative Quality VTE Deep Vein Thrombosis/Pulmonary Embolism Present on Admission: No MIPS - Admit I confirm the patient?s Advance Care Plan is present, Code status is documented, Surrogate decision maker is in patient?s record [If Yes, STOP here]: Yes
[2022-07-11] MEDS: INSULIN LISPRO 100 UNIT/ML 3ML VIAL 8 UNIT SUBCUT (16:53)
[2022-07-11] MEDS: PRAVASTATIN 20 MG TABLET PO (21:38)
[2022-07-11] MEDS: INSULIN GLARGINE 100 UNIT/ML 3ML PEN 15 UNIT SUBCUT (21:39)
[2022-07-12 01:00] VITALS: O2SAT 94
[2022-07-12] MEDS: ACETAMINOPHEN 325 MG TABLET 650 MG PO ×2 (01:16→08:07)
[2022-07-12] MEDS: ALBUTEROL 2.5 MG/3 ML NEB (ADULT) INH ×2 (01:32→08:33)
[2022-07-12 01:35] VITALS: PULSE 86; RESP 18; O2SAT 96
[2022-07-12 02:32] LABS: x Labcorp Estim. Avg Glu (eAG) 157 mg/dL (.); x Labcorp Hemoglobin A1c 7.1 % (4.8-5.6)
[2022-07-12 05:00] VITALS: BP 122/67; PULSE 89; RESP 17; TEMP 37.4; O2SAT 94; O2SAT 95
[2022-07-12 05:49] LABS: Add Manual Diff / Slide Review NO; Basophils Absolute Auto 0 /uL (0-100); Basophils Percent Auto 0.4 % (0-2); Eosinophils Absolute Auto 500 /uL (0-450); Eosinophils Percent Auto 4.2 % (2-4); Hematocrit 27.6 % (41-53); Hemoglobin 9.3 g/dL (13.5-17.5); Lymphocytes Absolute Auto 700 /uL (1100-4500); Lymphocytes Percent Auto 5.9 % (25-40); Mean Corpuscular HGB Conc 33.8 % (30-36); Mean Corpuscular Hemoglobin 33.6 PG (26-34); Mean Corpuscular Volume 99.2 fL (80-100); Monocytes Absolute Auto 700 /uL (0-900); Neutrophils Absolute Auto 9300 /uL (1500-7000); Neutrophils Percent Auto 83.5 % (50-75); Platelet Count 226 X10^3/uL (150-400); Red Blood Cell Count 2.79 X10^6/uL (4.5-5.9); Red Cell Distribution Width 14.7 % (11.6-14.8); White Blood Cell Count 11.1 X10^3/uL (4.5-11.0)
[2022-07-12 05:55] LABS: BUN Creatinine Ratio 29.8 (6-22); Blood Urea Nitrogen 36 mg/dL (9-20); Calcium 8.3 mg/dL (8.4-10.2); Carbon Dioxide 20 mmol/L (22-32); Chloride 102 mmol/L (98-107); Estimated Glomerular Filt Rate > 60 mL/min (>60); Glucose 247 mg/dL (80-110); HEMOLYSIS < 15 (0-50); Magnesium 1.7 mg/dL (1.6-2.3); Potassium 4.7 mmol/L (3.4-5.1); Sodium 131 mmol/L (137-145)
[2022-07-12] MEDS: INSULIN LISPRO 100 UNIT/ML 3ML VIAL SUBCUT ×2 (07:53→12:40)
[2022-07-12] MEDS: INSULIN LISPRO 100 UNIT/ML 3ML VIAL 8 UNIT SUBCUT ×2 (07:54→12:39)
[2022-07-12] MEDS: HYDROXYCHLOROQUINE 200 MG TABLET PO (08:07)
[2022-07-12 08:33] VITALS: PULSE 79; RESP 16; O2SAT 98
[2022-07-12] MEDS: BUDESONIDE 0.5 MG/2 ML NEB INH (08:33)
[2022-07-12 09:00] VITALS: BP 130/75; PULSE 80; RESP 17; TEMP 36.6; O2SAT 95
--- NOTE | 2022-07-12 10:36 | PM.DS.1 ---
History of Present Illness History of Present Illness Date Patient Seen: 07/12/22 Time Patient Seen: 10:36 Chief complaint: PT was told to come for MRI from his DR Narrative: ?This is a 80-year-old male with a past medical history of type 1 diabetes, rheumatoid arthritis on hydroxychloroquine and sulfasalazine, hypertension, hyperlipidemia who presents with an abrupt onset of weakness starting this afternoon. Patient was walking a local trail in town when he developed difficulty moving his left leg. He denied pain, though did have some tingling but denied numbness. This was yesterday according to the patient and reports that it comes and goes but is very vague with his responses today. He thinks it lasted around 30 minutes. According to the ER, stated that he fell asleep immediately and was unarousable for around 2 minutes and lossed his tone. After about 2 minutes he was weak and required assistance to get him back home. He reports no recent fever, chills, abdominal pain, chest pain, nausea or vomiting, LE swelling, joint pains, weight loss, hemoptysis. He was here approximately 2 years ago for a pericardial effusion and fever, was transferred to [facility], he reports they did not find a cause but am awaiting records at this time from that facility. Patient reports he wears a glucose monitor and was not hypoglycemic at the time of these incidents. In the emergency room, his vitals were unremarkable, and labroatory evaluation showed a mild anemia with Hg 10.2 (stable from previous labs), creatinine of 1.78, and d-dimer of 1881. Troponin was 0.156 and downtrended on repeat to 0.154. EKG showed NSR without evidence of active ischemia. COVID was negative. Glucose was 164. CT head was unremarkable, CXR showed possible small pleural effusion, CT angio performed which showed mod-large pericardial effusion and bilateral pleural effusions, increased in size from prior. He was admitted for further managemet and evaluation of syncope vs CVA. Discharge Providers Provider Date of admission: 07/10/22 16:49 Discharge Date: 07/12/22 Primary care physician: Cici Jones MD Consults: 07/10/22 18:41 Consult to Occupational Therapy Evaluate & Treat Comment: Physician Instructions: Evaluate and treat Consult to Physical Therapy Evaluate & Treat Comment: Physician Instructions: Evaluate and Treat Discharge provider: Eugene Cintron DO Summary Hospital Course Discharge Diagnosis: 1. Syncope / left leg weakness - subacute CVA - present on amission. 2. Pericardial effusion, possible acute on chronic 3. ARNAV 4. Myocardial injury 5. Diabetes Hospital Course: 82 year old male, admitted with weakness secondary to subacute CVA seen on MRI. Initially it was unclear if there was presyncope symptoms or unilateral weakness based on reported stories from the patient and his spouse. There was also mild troponin elevations but this was likely due to demand. ARNAV was also noted and given they had been walking outside on a hot day dehydration is suspected as the etiology as it resolved with fluids. TTE performed given his history of pericardial effusion with possible increased size noted on CT imaging done in the emergency room. TTE showed similar size effusion but possible valvular mass. Discussed TTE with cardiology and there is no significant change from prior, his outpatient supervisor cleaning and annealing does not think there is a mass on the valve, but likely calcifications and a poor quality study. He did well with PT, but struggled with OT on HD#1 and his had concerns about glucose levels and her ability to care for the patient at home. His insulin was titrated up, as he was likely eating more carbohydrates here than at home. Patient's spouse refused for the patient to have cognitive evaluation, though cognitive impairment is suspected as a result of his stroke, though he could have been more confused in the setting of his hyperglycemia initially. Recommend outpatient PT and OT to continue and a formal cognitive assessment as an outpatient. This was discussed with his spouse. Given the appearance of his MRI, with small subacute stroke and a remote area of small hemorrage, along with cognition this was consistent with an amyloid angiopathy. Given the appearance on MRI and prior hemorrhage, aspirin was not initiated at the time of discharge but further evaluation can be performed as an outpatient with MR w/ and without contrast to further clarify diagnosis if deemed appropriate. His statin was continued at the time of discharge. No changes to his insulin therapy is recommended. Time Spent with Patient Time spent: Greater than 30 minutes Exam Vital Signs (past 8 hours): - 07/12/22 05:00 07/12/22 05:00 07/12/22 08:33 Temperature 99.3 F Pulse Rate 89 79 Respiratory Rate 17 16 Blood Pressure 122/67 Pulse Oximetry 95 94 98 Oxygen Delivery Method Room Air Room Air Oxygen Flow Rate 0 07/12/22 09:00 Temperature 97.8 F Pulse Rate 80 Respiratory Rate 17 Blood Pressure 130/75 Pulse Oximetry 95 Oxygen Delivery Method Oxygen Flow Rate 0 Oxygen Delivery Method Room Air Oxygen Flow Rate 0 Narrative Exam Narrative: General:? Patient is well developed and well nourished, in no distress at this time. HEENT:? Normocephalic, atraumatic, extraocular muscles intact, oral pharynx is clear and mucous membranes are moist. Neck: supple and symmetric, trachea is midline, no cervical adenopathy. Negative for JVD Chest:? Normal AP diameter and contour without kyphoscoliosis, no tachypnea, equal chest rise bilaterally. Lungs:? CTA b/l no wheezing rhonchi or rales. Cardio:?RRR no m/r/g. Abdomen: S NT ND. No CVA tenderness. Musculoskeletal:? Muscle strength and tone are equal within normal limits, no deformity. Extremities: No edema or joint effusions. No cyanosis or clubbing. Skin:? Pale,? Warm to touch,dry and intact without rashes, ulcerations or petechiae.? Neuro:? Alert and orientated x3,? sensation to touch intact in all extremities, no gross deficits noted of cranial nerves. Psych:? Patient has a well-kept appearance, appropriate affect, mental status attitude thought context and judgment are appropriate for age. Objective Labs 07/12/22 05:18 07/12/22 05:18 Labs: Laboratory Results - last 24 hr 07/11/22 07/12/22 07/12/22 06:05 05:18 05:18 WBC 11.1 H D RBC 2.79 L Hgb 9.3 L Hct 27.6 L MCV 99.2 MCH 33.6 MCHC 33.8 RDW 14.7 Plt Count 226 Neut % (Auto) 83.5 H Lymph % (Auto) 5.9 L Schleicher % (Auto) 6.0 Eos % (Auto) 4.2 H Baso % (Auto) 0.4 Neut # (Auto) 9300 H Lymph # (Auto) 700 L Schleicher # (Auto) 700 Eos # (Auto) 500 H Baso # (Auto) 0 Sodium 131 L Potassium 4.7 Chloride 102 Carbon Dioxide 20 L BUN 36 H Creatinine 1.21 Estimated GFR > 60 BUN/Creatinine Ratio 29.8 H Glucose 247 H D Hgb A1c (Ref Lab) 7.1 H Estim Average Glucose 157 Calcium 8.3 L Magnesium 1.7 [facility] Medical History Cataract COPD (chronic obstructive pulmonary disease) Diabetes History of colon polyps Ingrowing toenail of left foot Surgical History History of cataract surgery Total knee replacement status Social History household members: spouse Smoking Status: Never smoker alcohol intake: former Discharge Plan Discharge Plan Patient Disposition: Home Provider Discharge Comment: You were admitted to the hospital with weakness, concern for syncope. MRI of your brain did show a few newish (within a couple of weeks) strokes, and prior bleeding. This is consistent with a process called cerebral amyloid angiopathy and is generally not treated with blood thinners or aspirin like a typical stroke. Your echocardiogram was similar to previous studies when discussed with your supervisor cleaning and annealing Dr. Low. Please follow up with your PCP in the next few weeks to review hospitalization. Nursing Discharge Comment: if your symptoms that brought you to the hospital start to return, please contact your PCP and / or return to ER/Call 911. monitor your b/p and pulse for the next week or 2 and bring that log to your follow up appt w/ your primary physician. you should see PCP w/in 7-10 days of today. your lunch time glucose was 314. you received 15 units of sliding scale short acting lispro, and ate a good amount of lunch. the insulins that were used for you during this visit are in a bag ready to go home w/ you. *(lantus and lispro) it was a pleasure to be your nurse today, please take care of yourself and enjoy the rest of your afternoon! Discharge orders & Medications Prescriptions: Continued fluticasone propion-salmeterol [Advair Diskus] 500-50 mcg/dose blister with device 1 inh INHALATION DAILY pravastatin 20 mg tablet 20 mg PO BEDTIME lisinopril 5 mg tablet 5 mg PO DAILY hydroxychloroquine 200 mg tablet 200 mg PO BID insulin aspart U-100 [Novolog FlexPen U-100 Insulin] 100 unit/mL (3 mL) insulin pen 6 unit SUBCUT TIDWMEAL insulin glargine [Lantus Solostar U-100 Insulin] 100 unit/mL (3 mL) insulin pen 12 unit SUBCUT BEDTIME sulfasalazine 500 mg tablet 500 mg PO BID Rx Instructions: Take 2 tablets twice a day for arthritis vitamin B complex Tablet 1 tab PO DAILY Follow up/Referrals: Cici Jones MD [Primary Care Provider] - Diet/Activity/Treatments Diet: Diet as Tolerated and Carb-consistent/Diabetic Activity: As tolerated Visit Report/Discharge Packet Stand Alone Forms: Patient Portal/API, Stroke Signs & Symptoms Discharge Data Primary Care Provider: Cici Jones Discharges patient from system. Discharge Date/Time: 07/12/22 14:30 Quality VTE Deep Vein Thrombosis/Pulmonary Embolism Present on Admission: No
[2022-07-12 13:00] VITALS: BP 113/54; PULSE 92; RESP 17; TEMP 36.2; O2SAT 95
== END 2022-07-12 14:30 | disposition home or self-care (01) | DRG 65 ==
LOC: ED 16:49 → AC 17:12
PROVIDERS: Admitting Provider Internal Medicine; Emergency Provider Emergency Medicine; PCP Internal Medicine; Referring Provider Emergency Medicine; Visit Provider Internal Medicine
DX: I63.9 Cerebral infarction, unspecified (principal); E85.4 Organ-limited amyloidosis; I31.39 Other pericardial effusion (noninflammatory); N17.9 Acute kidney failure, unspecified; I5A Non-ischemic myocardial injury (non-traumatic); I68.0 Cerebral amyloid angiopathy; G83.14 Monoplegia of lower limb affecting left nondominant side; R55 Syncope and collapse; E11.9 Type 2 diabetes mellitus without complications; R29.700 NIHSS score 0; Z79.4 Long term (current) use of insulin; Z66 Do not resuscitate; Z20.822 Contact with and (suspected) exposure to COVID-19
CPT/HCPCS: 36415; 70450; 70551; 71045; 71275; 80048; 80053; 82550; 82728; 82962; 83036; 83690; 83735; 83880; 84484; 85007; 85025; 85379; 85610; 85651; 85730; 86140; 87635; 93005; 93306; 94640; 94760; 97161; 97166; 97535; 99284; C9803; J1815; J7613; Q9967

== ENCOUNTER 2022-08-18 23:23 | Emergency (ER) | payer MEDICARE, SELFPAY ==
[2022-07-10 17:40] VITALS: BMI 20.5
[2022-08-18 23:30] VITALS: BP 112/62; PULSE 80; RESP 18; TEMP 36.7; O2SAT 96; BMI 21.5
[2022-08-19] VITALS (26 sets, daily range): BP systolic 120–179; BP diastolic 62–100; PULSE 73–101; RESP 16–20; O2SAT 93–100
--- NOTE | 2022-08-19 00:25 | ED_ITS ---
HPI - Neuro Symptoms/Deficit <Pancho DO Allen - Last Filed: 08/20/22 03:27> General Chief Complaint: Neuro Symptoms/Deficit Stated Complaint: high blood sugar Time Seen by Provider: 08/18/22 23:29 Source: patient Mode of arrival: Wheelchair History of Present Illness HPI Narrative: 82-year-old male with history of type 1 diabetes, rheumatoid arthritis, hypertension, hyperlipidemia and recent hospitalization for generalized weakness with discovery of subacute infarcts presents with his given concerns of a return of his weakness. She states that he was discharged and had ongoing confusion which seemed to improve slowly day by day until yesterday when he seemed to be generally confused and generally weak and slept most of the day. She denies that he has had any slurring of words or facial droop but states that he did not know where he was and was confused about who the president is and that is not normal for him. Furthermore, he can typically get around without much difficulty but has been having difficulty ambulating over the course of the day. She states that she had been referred to neurology at [facility] but has still been unable to get in since her discharge and she is a bit frustrated. The patient has no complaints and is a very poor historian. He is not activated as a code stroke given the duration of symptoms as he is well outside of any tPA possibility, furthermore he has no obvious lateralizing symptoms On Anticoagulants: No Related Data Home Medications Medication Instructions Recorded Confirmed fluticasone 500 mcg-salmeterol 50 1 inh inhalation DAILY 04/04/20 07/10/22 mcg/dose blistr powdr for inhalation (Advair Diskus) hydroxychloroquine 200 mg tablet 200 mg PO BID 04/04/20 07/10/22 insulin aspart U-100 100 unit/mL 6 unit SUBCUT TIDWMEAL 04/04/20 07/10/22 (3 mL) subcutaneous pen (Novolog FlexPen U-100 Insulin aspart) insulin glargine 100 unit/mL (3 12 unit SUBCUT BEDTIME 04/04/20 07/10/22 mL) subcutaneous pen (Lantus Solostar U-100 Insulin) lisinopril 5 mg tablet 5 mg PO DAILY 04/04/20 07/10/22 pravastatin 20 mg tablet 20 mg PO BEDTIME 04/04/20 07/10/22 sulfasalazine 500 mg tablet 500 mg PO BID 08/03/20 07/10/22 vitamin B complex 1 tab PO DAILY 08/03/20 07/10/22 Allergies Allergy/AdvReac Type Severity Reaction Status Date / Time shellfish derived AdvReac Verified 07/10/22 12:13 Review of Systems <Pancho Villa DO - Last Filed: 08/20/22 03:27> Review of Systems Narrative: GENERAL: Denies chills, fatigue, malaise, fever, sweats. HEENT: Denies sinus pain, ear pain, sore throat, difficulty swallowing, dizziness. RESPIRATORY: Denies dyspnea, cough, wheezing, hemoptysis, sputum. CARDIOVASCULAR: Denies chest pain, palpitations, orthopnea, edema, GASTROINTESTINAL: Denies nausea, vomiting, abdominal pain, diarrhea, constipation, melena. : Denies dysuria, frequency, incontinence, hematuria, urinary retention. MUSCULOSKELETAL: denies weakness, joint pain, or bony pain SKIN: Denies rash, skin lesions, or other NEUROLOGIC: See HPI PSYCHIATRIC: No concerning psychosocial issues. 12 point review of systems is negative except for those stated above Hematologic/Lymphatic On Anticoagulants: No Patient History <Pancho Villa DO - Last Filed: 08/20/22 03:27> Medical History Cataract COPD (chronic obstructive pulmonary disease) Diabetes History of colon polyps Ingrowing toenail of left foot Surgical History History of cataract surgery Total knee replacement status Social History household members: spouse Smoking Status: Never smoker alcohol intake: former Smoking Status: Never smoker alcohol intake frequency: other Substance Use Type: does not use Exam <Pancho Villa DO - Last Filed: 08/20/22 03:27> Narrative Exam Narrative: GENERAL: [82] year old patient appears stated age. Well-developed patient, in mild distress. Pleasantly confused, GCS 14 HEAD: Atraumatic. Normocephalic. EYES: Pupils equal round and reactive. Extraocular motions intact. No scleral icterus. No injection or drainage. ENT: Nose without bleeding, purulent drainage. Throat without erythema, tonsillar hypertrophy or exudate. Airway patent. NECK: Trachea midline. Non tender CARDIOVASCULAR: Regular rate and rhythm without murmurs, gallops, or rubs. RESPIRATORY: Clear to auscultation. Breath sounds equal bilaterally. No wheezes, rales, or rhonchi. GASTROINTESTINAL: Abdomen soft, non-tender, nondistended. EXTREMITIES: No edema or joint tenderness. BACK: Nontender without deformity or crepitance. No flank tenderness. NEURO: AOx3. SKIN: No rash or erythema of visible areas Initial Vital Signs Initial Vital Signs: Vital Signs Temperature 98.1 F 08/18/22 23:30 Pulse Rate 80 08/18/22 23:30 Respiratory Rate 18 08/18/22 23:30 Blood Pressure 112/62 08/18/22 23:30 Pulse Oximetry 96 08/18/22 23:30 Oxygen Delivery Method Room Air 08/18/22 23:30 <Xiomy Dover DO - Last Filed: 08/19/22 14:59> Initial Vital Signs Initial Vital Signs: Vital Signs Temperature 98.1 F 08/18/22 23:30 Pulse Rate 80 08/18/22 23:30 Respiratory Rate 18 08/18/22 23:30 Blood Pressure 112/62 08/18/22 23:30 Pulse Oximetry 96 08/18/22 23:30 Oxygen Delivery Method Room Air 08/18/22 23:30 Scores <Pancho Villa DO - Last Filed: 08/20/22 03:27> NIH Stroke Scale Level of Conciousness: Alert, keenly responsive Ask month/age: Answers one question correctly, intubated follow commands Open/close eyes, close hand: Performs both tasks correctly Best gaze horizontal: Normal Visual peraza: No visual loss Facial palsy: Normal symetrical movement Left arm drift: No drift for full 10 sec Right arm drift: No drift for full 10 sec Left leg drift: No drift for full 5 sec Right leg drift: No drift for full 5 sec Limb ataxia: Absent Sensory on face/arms/legs: Normal, no sensory loss Best language: No aphasia, normal Dysarthria: Normal Extinction or inattention: No abnormality Total NIH Stroke scale score: 1 <Xiomy Dover DO - Last Filed: 08/19/22 14:59> NIH Stroke Scale Total NIH Stroke scale score: 1 Course <Pancho Villa DO - Last Filed: 08/20/22 03:27> Orders Ordered: Discontinued Medications Aspirin (Aspirin Ec 325 Mg Tablet) 325 mg PO NOW ONE Stop: 08/19/22 12:27 Last Admin: 08/19/22 12:49 Dose: 325 mg Documented By: JEET Heparin Sodium/Dextrose (Heparin Drip) 25,000 unit in 500 mls @ 16.329 mls/hr IV CONT ASTRID; Protocol Last Admin: 08/19/22 13:00 Dose: 12 units/kg/hr, 16.329 mls/hr Documented By: JEET Co-signed By: FRACISCO Consultations Consultation #1: discussed with Dr. León ([facility] Stroke). We have discussed the patient's recent hospitalization as well as today's presentation at length. He recommends obtaining MRI of the brain with and without contrast first and foremost and further discussion based on results, though in the absence of any obvious acute changes is likely that patient could potentially benefit from antiseizure meds until EEG can be arranged, but that repeat consultation would be appropriate. Recommends holding ASA for now Time: 02:57 Consultation #2: discussed with Dr. Minor. Would prefer to get MRI out of the ED given potential need for transfer depending on findings. made aware. Vital Signs Vital signs: Vital Signs - 8 hr 08/19/22 07:00 08/19/22 07:00 08/19/22 07:30 Pulse Rate 89 Blood Pressure 157/76 H 175/100 H Pulse Oximetry 95 08/19/22 07:30 08/19/22 08:00 08/19/22 08:00 Pulse Rate 101 H 87 Blood Pressure 133/69 Pulse Oximetry 95 94 08/19/22 08:30 08/19/22 08:30 08/19/22 09:00 Pulse Rate 85 Blood Pressure 122/67 145/70 H Pulse Oximetry 93 08/19/22 09:00 08/19/22 09:30 08/19/22 09:30 Pulse Rate 81 77 Blood Pressure 134/74 Pulse Oximetry 94 95 08/19/22 10:49 08/19/22 11:00 08/19/22 11:30 Pulse Rate 82 80 79 Blood Pressure Pulse Oximetry 96 97 96 08/19/22 12:00 08/19/22 12:30 08/19/22 13:00 Pulse Rate 89 77 76 Blood Pressure Pulse Oximetry 98 97 97 08/19/22 13:15 08/19/22 13:15 08/19/22 13:30 Pulse Rate 73 73 Blood Pressure 120/62 Pulse Oximetry 97 99 08/19/22 14:00 08/19/22 14:20 08/19/22 14:20 Pulse Rate 74 74 Blood Pressure 139/66 Pulse Oximetry 98 98 08/19/22 14:30 Pulse Rate 73 Blood Pressure Pulse Oximetry 99 <Xiomy Dover DO - Last Filed: 08/19/22 14:59> Orders Ordered: Discontinued Medications Aspirin (Aspirin Ec 325 Mg Tablet) 325 mg PO NOW ONE Stop: 08/19/22 12:27 Last Admin: 08/19/22 12:49 Dose: 325 mg Documented By: JEET Heparin Sodium/Dextrose (Heparin Drip) 25,000 unit in 500 mls @ 16.329 mls/hr IV CONT ASTRID; Protocol Last Admin: 08/19/22 13:00 Dose: 12 units/kg/hr, 16.329 mls/hr Documented By: JEET Co-signed By: FRACISCO Vital Signs Vital signs: Vital Signs - 8 hr 08/19/22 07:00 08/19/22 07:00 08/19/22 07:30 Pulse Rate 89 Blood Pressure 157/76 H 175/100 H Pulse Oximetry 95 08/19/22 07:30 08/19/22 08:00 08/19/22 08:00 Pulse Rate 101 H 87 Blood Pressure 133/69 Pulse Oximetry 95 94 08/19/22 08:30 08/19/22 08:30 08/19/22 09:00 Pulse Rate 85 Blood Pressure 122/67 145/70 H Pulse Oximetry 93 08/19/22 09:00 08/19/22 09:30 08/19/22 09:30 Pulse Rate 81 77 Blood Pressure 134/74 Pulse Oximetry 94 95 08/19/22 10:49 08/19/22 11:00 08/19/22 11:30 Pulse Rate 82 80 79 Blood Pressure Pulse Oximetry 96 97 96 08/19/22 12:00 08/19/22 12:30 08/19/22 13:00 Pulse Rate 89 77 76 Blood Pressure Pulse Oximetry 98 97 97 08/19/22 13:15 08/19/22 13:15 08/19/22 13:30 Pulse Rate 73 73 Blood Pressure 120/62 Pulse Oximetry 97 99 08/19/22 14:00 08/19/22 14:20 08/19/22 14:20 Pulse Rate 74 74 Blood Pressure 139/66 Pulse Oximetry 98 98 08/19/22 14:30 Pulse Rate 73 Blood Pressure Pulse Oximetry 99 MDM - Neuro Symptoms/Deficit <Pancho DO Allen - Last Filed: 08/20/22 03:27> Lab Data 08/19/22 00:00 08/19/22 00:00 Labs: Lab Results 08/19/22 08/19/22 08/19/22 Range/Units 00:00 00:00 00:00 WBC 6.8 (4.5-11.0) X10^3/uL RBC 2.78 L (4.5-5.9) X10^6/uL Hgb 9.5 L (13.5-17.5) g/dL Hct 27.5 L (41-53) % MCV 98.8 (80-100) fL MCH 34.3 H (26-34) PG MCHC 34.7 (30-36) % RDW 14.4 (11.6-14.8) % Plt Count 188 (150-400) X10^3/uL Neut % (Auto) 62.8 (50-75) % Lymph % (Auto) 17.5 L (25-40) % [place] % (Auto) 9.3 (3-14) % Eos % (Auto) 9.8 H (2-4) % Baso % (Auto) 0.6 (0-2) % Neut # (Auto) 4300 (0089-4535) /uL Lymph # (Auto) 1200 (8620-9795) /uL [place] # (Auto) 600 (0-900) /uL Eos # (Auto) 700 H (0-450) /uL Baso # (Auto) 0 (0-100) /uL PT 12.5 (10.1-12.7) SECONDS INR 1.1 (0.9-1.3) APTT 33 (26-36) SECONDS Sodium 137 (137-145) mmol/L Potassium 4.1 (3.4-5.1) mmol/L Chloride 103 (98-107) mmol/L Carbon Dioxide 28 (22-32) mmol/L BUN 34 H (9-20) mg/dL Creatinine 1.08 (0.66-1.25) mg/dL Estimated GFR > 60 (>60) mL/min BUN/Creatinine Ratio 31.5 H (6-22) Glucose 144 H (80-110) mg/dL Calcium 8.8 (8.4-10.2) mg/dL Total Bilirubin 0.5 (0.2-1.3) mg/dL AST 29 (17-59) IU/L ALT 23 (<50) IU/L Alkaline Phosphatase 102 (38-126) U/L Total Creatine Kinase 47 L (55-170) U/L CK-MB (CK-2) TNP CK-MB (CK-2) Rel Index TNP Troponin I 0.021 (0.01-0.034) ng/mL Total Protein 6.8 (6.3-8.2) g/dL Albumin 3.6 (3.5-5.0) g/dL Globulin 3.2 (1.7-4.1) g/dL Albumin/Globulin Ratio 1.1 (1.0-2.8) Urine Color Urine Appearance Urine pH (4.5-8.0) Ur Specific [place] (1.000-1.035) Urine Protein (Negative) Urine Glucose (UA) (Negative) g/dL Urine Ketones (NEGATIVE) Urine Occult Blood (Negative) Urine Nitrate (Negative) Urine Bilirubin (NEGATIVE) Urine Urobilinogen (0.2) E.U./dL Ur Leukocyte Esterase (NEGATIVE) Urine RBC (0-5/HPF) Urine WBC (0-5/HPF) Ur Squamous Epith Cells (0-5/HPF) Urine Bacteria (None) Ur Culture Indicated? U Opiates 300ng/mL cut (Negative) Ur Oxycodone Screen (Negative) Urine Methadone Screen (Negative) Ur Barbiturates Screen (Negative) U Tricyclic Antidepress (Negative) Ur Phencyclidine Scrn (Negative) Ur Amphetamines Screen (Negative) U Methamphetamines Scrn (Negative) Ur MDMA Scrn (Ecstasy) (Negative) U Benzodiazepines Scrn (Negative) Urine Cocaine Screen (Negative) U Marijuana (THC) Screen (Negative) Ethyl Alcohol < 10 ( - 10) mg/dL SARS-CoV-2 (PCR) (Negative) 08/19/22 08/19/22 08/19/22 Range/Units 00:44 00:44 00:55 WBC (4.5-11.0) X10^3/uL RBC (4.5-5.9) X10^6/uL Hgb (13.5-17.5) g/dL Hct (41-53) % MCV (80-100) fL MCH (26-34) PG MCHC (30-36) % RDW (11.6-14.8) % Plt Count (150-400) X10^3/uL Neut % (Auto) (50-75) % Lymph % (Auto) (25-40) % [place] % (Auto) (3-14) % Eos % (Auto) (2-4) % Baso % (Auto) (0-2) % Neut # (Auto) (2891-4213) /uL Lymph # (Auto) (3488-3127) /uL [place] # (Auto) (0-900) /uL Eos # (Auto) (0-450) /uL Baso # (Auto) (0-100) /uL PT (10.1-12.7) SECONDS INR (0.9-1.3) APTT (26-36) SECONDS Sodium (137-145) mmol/L Potassium (3.4-5.1) mmol/L Chloride (98-107) mmol/L Carbon Dioxide (22-32) mmol/L BUN (9-20) mg/dL Creatinine (0.66-1.25) mg/dL Estimated GFR (>60) mL/min BUN/Creatinine Ratio (6-22) Glucose (80-110) mg/dL Calcium (8.4-10.2) mg/dL Total Bilirubin (0.2-1.3) mg/dL AST (17-59) IU/L ALT (<50) IU/L Alkaline Phosphatase (38-126) U/L Total Creatine Kinase (55-170) U/L CK-MB (CK-2) CK-MB (CK-2) Rel Index Troponin I (0.01-0.034) ng/mL Total Protein (6.3-8.2) g/dL Albumin (3.5-5.0) g/dL Globulin (1.7-4.1) g/dL Albumin/Globulin Ratio (1.0-2.8) Urine Color Yellow Urine Appearance Clear Urine pH 6.0 (4.5-8.0) Ur Specific [place] 1.020 (1.000-1.035) Urine Protein 2+ H (Negative) Urine Glucose (UA) Negative (Negative) g/dL Urine Ketones Negative (NEGATIVE) Urine Occult Blood Negative (Negative) Urine Nitrate Negative (Negative) Urine Bilirubin Negative (NEGATIVE) Urine Urobilinogen 1.0 (0.2) E.U./dL Ur Leukocyte Esterase Negative (NEGATIVE) Urine RBC None seen (0-5/HPF) Urine WBC None seen (0-5/HPF) Ur Squamous Epith Cells None seen (0-5/HPF) Urine Bacteria None seen (None) Ur Culture Indicated? Cult not indicated U Opiates 300ng/mL cut Negative (Negative) Ur Oxycodone Screen Negative (Negative) Urine Methadone Screen Negative (Negative) Ur Barbiturates Screen Negative (Negative) U Tricyclic Antidepress Negative (Negative) Ur Phencyclidine Scrn Negative (Negative) Ur Amphetamines Screen Negative (Negative) U Methamphetamines Scrn Negative (Negative) Ur MDMA Scrn (Ecstasy) Negative (Negative) U Benzodiazepines Scrn Negative (Negative) Urine Cocaine Screen Negative (Negative) U Marijuana (THC) Screen Negative (Negative) Ethyl Alcohol ( - 10) mg/dL SARS-CoV-2 (PCR) Negative (Negative) Point of Care Testing Glucose POC 136 Urine Dip Bedside Urine Glucose Negative Bedside Urine Bilirubin - Negative Bedside Urine Ketone - Negative Urine Specific [place] 1.020 Bedside Urine Occult Blood +/- Bedside Urine pH 6.0 Bedside Urine Protein + 30 Bedside Urine Urobilinogen - Negative Bedside Urine Nitrite - Negative Bedside Urine Leukocytes +/- 15 Esterase MDM Narrative Medical decision making narrative: CC: 82M with some confusion Complicating co-morbidities: age, diabetic Data collected from: Patient Medical records reviewed: Prior notes reviewed in our EMR Differential considered, but not limited to: Exam documented above, pertinent findings include: Lab Test results independently reviewed as above. Pertinent findings: Independently reviewed EKG as above Imaging studies independently reviewed: CT Head / CTA Head Neck without acute findings Scores Used: NIHSS 1 Consultations: Dr. Minor and Dr. León. See Details above. Treatments: Re-evaluations: Discussion: Disposition: see below, along with detailed discharge instructions that have been reviewed with patient as well as indications for ED re-evaluation and additional outpatient follow up <Xiomy Botnick, DO - Last Filed: 08/19/22 14:59> Lab Data Labs: Lab Results 08/19/22 08/19/22 08/19/22 Range/Units 00:00 00:00 00:00 WBC 6.8 (4.5-11.0) X10^3/uL RBC 2.78 L (4.5-5.9) X10^6/uL Hgb 9.5 L (13.5-17.5) g/dL Hct 27.5 L (41-53) % MCV 98.8 (80-100) fL MCH 34.3 H (26-34) PG MCHC 34.7 (30-36) % RDW 14.4 (11.6-14.8) % Plt Count 188 (150-400) X10^3/uL Neut % (Auto) 62.8 (50-75) % Lymph % (Auto) 17.5 L (25-40) % [place] % (Auto) 9.3 (3-14) % Eos % (Auto) 9.8 H (2-4) % Baso % (Auto) 0.6 (0-2) % Neut # (Auto) 4300 (8065-4599) /uL Lymph # (Auto) 1200 (4737-3050) /uL [place] # (Auto) 600 (0-900) /uL Eos # (Auto) 700 H (0-450) /uL Baso # (Auto) 0 (0-100) /uL PT 12.5 (10.1-12.7) SECONDS INR 1.1 (0.9-1.3) APTT 33 (26-36) SECONDS Sodium 137 (137-145) mmol/L Potassium 4.1 (3.4-5.1) mmol/L Chloride 103 (98-107) mmol/L Carbon Dioxide 28 (22-32) mmol/L BUN 34 H (9-20) mg/dL Creatinine 1.08 (0.66-1.25) mg/dL Estimated GFR > 60 (>60) mL/min BUN/Creatinine Ratio 31.5 H (6-22) Glucose 144 H (80-110) mg/dL Calcium 8.8 (8.4-10.2) mg/dL Total Bilirubin 0.5 (0.2-1.3) mg/dL AST 29 (17-59) IU/L ALT 23 (<50) IU/L Alkaline Phosphatase 102 (38-126) U/L Total Creatine Kinase 47 L (55-170) U/L CK-MB (CK-2) TNP CK-MB (CK-2) Rel Index TNP Troponin I 0.021 (0.01-0.034) ng/mL Total Protein 6.8 (6.3-8.2) g/dL Albumin 3.6 (3.5-5.0) g/dL Globulin 3.2 (1.7-4.1) g/dL Albumin/Globulin Ratio 1.1 (1.0-2.8) Urine Color Urine Appearance Urine pH (4.5-8.0) Ur Specific [place] (1.000-1.035) Urine Protein (Negative) Urine Glucose (UA) (Negative) g/dL Urine Ketones (NEGATIVE) Urine Occult Blood (Negative) Urine Nitrate (Negative) Urine Bilirubin (NEGATIVE) Urine Urobilinogen (0.2) E.U./dL Ur Leukocyte Esterase (NEGATIVE) Urine RBC (0-5/HPF) Urine WBC (0-5/HPF) Ur Squamous Epith Cells (0-5/HPF) Urine Bacteria (None) Ur Culture Indicated? U Opiates 300ng/mL cut (Negative) Ur Oxycodone Screen (Negative) Urine Methadone Screen (Negative) Ur Barbiturates Screen (Negative) U Tricyclic Antidepress (Negative) Ur Phencyclidine Scrn (Negative) Ur Amphetamines Screen (Negative) U Methamphetamines Scrn (Negative) Ur MDMA Scrn (Ecstasy) (Negative) U Benzodiazepines Scrn (Negative) Urine Cocaine Screen (Negative) U Marijuana (THC) Screen (Negative) Ethyl Alcohol < 10 ( - 10) mg/dL SARS-CoV-2 (PCR) (Negative) 08/19/22 08/19/22 08/19/22 Range/Units 00:44 00:44 00:55 WBC (4.5-11.0) X10^3/uL RBC (4.5-5.9) X10^6/uL Hgb (13.5-17.5) g/dL Hct (41-53) % MCV (80-100) fL MCH (26-34) PG MCHC (30-36) % RDW (11.6-14.8) % Plt Count (150-400) X10^3/uL Neut % (Auto) (50-75) % Lymph % (Auto) (25-40) % [place] % (Auto) (3-14) % Eos % (Auto) (2-4) % Baso % (Auto) (0-2) % Neut # (Auto) (4841-0731) /uL Lymph # (Auto) (8998-9836) /uL [place] # (Auto) (0-900) /uL Eos # (Auto) (0-450) /uL Baso # (Auto) (0-100) /uL PT (10.1-12.7) SECONDS INR (0.9-1.3) APTT (26-36) SECONDS Sodium (137-145) mmol/L Potassium (3.4-5.1) mmol/L Chloride (98-107) mmol/L Carbon Dioxide (22-32) mmol/L BUN (9-20) mg/dL Creatinine (0.66-1.25) mg/dL Estimated GFR (>60) mL/min BUN/Creatinine Ratio (6-22) Glucose (80-110) mg/dL Calcium (8.4-10.2) mg/dL Total Bilirubin (0.2-1.3) mg/dL AST (17-59) IU/L ALT (<50) IU/L Alkaline Phosphatase (38-126) U/L Total Creatine Kinase (55-170) U/L CK-MB (CK-2) CK-MB (CK-2) Rel Index Troponin I (0.01-0.034) ng/mL Total Protein (6.3-8.2) g/dL Albumin (3.5-5.0) g/dL Globulin (1.7-4.1) g/dL Albumin/Globulin Ratio (1.0-2.8) Urine Color Yellow Urine Appearance Clear Urine pH 6.0 (4.5-8.0) Ur Specific [place] 1.020 (1.000-1.035) Urine Protein 2+ H (Negative) Urine Glucose (UA) Negative (Negative) g/dL Urine Ketones Negative (NEGATIVE) Urine Occult Blood Negative (Negative) Urine Nitrate Negative (Negative) Urine Bilirubin Negative (NEGATIVE) Urine Urobilinogen 1.0 (0.2) E.U./dL Ur Leukocyte Esterase Negative (NEGATIVE) Urine RBC None seen (0-5/HPF) Urine WBC None seen (0-5/HPF) Ur Squamous Epith Cells None seen (0-5/HPF) Urine Bacteria None seen (None) Ur Culture Indicated? Cult not indicated U Opiates 300ng/mL cut Negative (Negative) Ur Oxycodone Screen Negative (Negative) Urine Methadone Screen Negative (Negative) Ur Barbiturates Screen Negative (Negative) U Tricyclic Antidepress Negative (Negative) Ur Phencyclidine Scrn Negative (Negative) Ur Amphetamines Screen Negative (Negative) U Methamphetamines Scrn Negative (Negative) Ur MDMA Scrn (Ecstasy) Negative (Negative) U Benzodiazepines Scrn Negative (Negative) Urine Cocaine Screen Negative (Negative) U Marijuana (THC) Screen Negative (Negative) Ethyl Alcohol ( - 10) mg/dL SARS-CoV-2 (PCR) Negative (Negative) Point of Care Testing Glucose POC 136 Urine Dip Bedside Urine Glucose Negative Bedside Urine Bilirubin - Negative Bedside Urine Ketone - Negative Urine Specific [place] 1.020 Bedside Urine Occult Blood +/- Bedside Urine pH 6.0 Bedside Urine Protein + 30 Bedside Urine Urobilinogen - Negative Bedside Urine Nitrite - Negative Bedside Urine Leukocytes +/- 15 Esterase MDM Narrative Medical decision making narrative: CC: 82M with some confusion Complicating co-morbidities: age, diabetic Data collected from: Patient Medical records reviewed: Prior notes reviewed in our EMR Differential considered, but not limited to: Exam documented above, pertinent findings include: Lab Test results independently reviewed as above. Pertinent findings: Independently reviewed EKG as above Imaging studies independently reviewed: CT Head / CTA Head Neck without acute findings Scores Used: NIHSS 1 Consultations: Dr. Minor and Dr. León. See Details above. Treatments: Re-evaluations: Discussion: Disposition: see below, along with detailed discharge instructions that have been reviewed with patient as well as indications for ED re-evaluation and additional outpatient follow up Dr. Dover: Patient signed out to me by Dr. Villa. I have seen evaluated patient myself resting comfortably no symptoms. reports no focal deficits however sleeping more. Awaiting MRI this morning. He was admitted July 10 through July 12 found to have subacute stroke remote area of hemorrhage consistent with an amyloid angiopathy. Given appearance of MRI and prior hemorrhage aspirin was not initiated at time of discharge. Patient MRI today with and without contrast concern for new infarct in left basal ganglia thalamus. Spoke with Dr. Zacarias [facility] neurologist concern for mass seen on echo in June. At this time MRI no significant hemorrhage recommend some anticoagulation small dose heparin no bolus at full dose aspirin and recommends transferring to [facility]. 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 This mass was not present on prior echo study. If clinically suspicious for endocarditis then consider a KRYSTA. Critical Care Time <Pancho Villa, DO - Last Filed: 08/20/22 03:27> Critical Care Time Critical Care Time: Yes Total Critical Care Time: 45 Attestation: The high probability of a clinically significant, sudden or life threatening deterioration of the [[place]] system(s) required my full and direct attention, intervention and personal management. The aggregate critical care time was [45] minutes. This time is in addition to time spent performing reported procedures but includes the following: x Data Review and interpretation [x] Patient assessment and monitoring of vital signs [x] Documentation [x] Medication orders and management Discharge Plan Departure Patient Disposition: [facility] Clinical Impression: Cerebrovascular accident, Cardiac valve mass Prescriptions: No Action fluticasone propion-salmeterol [Advair Diskus] 500-50 mcg/dose blister with device 1 inh INHALATION DAILY pravastatin 20 mg tablet 20 mg PO BEDTIME lisinopril 5 mg tablet 5 mg PO DAILY hydroxychloroquine 200 mg tablet 200 mg PO BID insulin aspart U-100 [Novolog FlexPen U-100 Insulin] 100 unit/mL (3 mL) insulin pen 6 unit SUBCUT TIDWMEAL insulin glargine [Lantus Solostar U-100 Insulin] 100 unit/mL (3 mL) insulin pen 12 unit SUBCUT BEDTIME sulfasalazine 500 mg tablet 500 mg PO BID Rx Instructions: Take 2 tablets twice a day for arthritis vitamin B complex Tablet 1 tab PO DAILY Referrals: Cici Jones MD [Primary Care Provider] - Stand Alone Forms: Patient Portal/API
--- NOTE | 2022-08-19 00:36 | DI.CT.S_ITS ---
PROCEDURE: CT STROKE INDICATIONS: stroke TECHNIQUE: Noncontrast 4.5 mm thick angled axial sections acquired from the foramen magnum to the vertex, with coronal reformats. For radiation dose reduction, the following was used: automated exposure control, adjustment of mA and/or kV according to patient size. COMPARISON: [facility], MR, MR HEAD/BRAIN WO CON, 07/10/2022, 18:50. [facility], CT, CT HEAD/BRAIN WO CON, 07/10/2022, 14:57. FINDINGS: Image quality: Excellent. CSF spaces: Basal cisterns are patent. No extra-axial fluid collections. The ventricles are symmetric in size and shape. Brain: No intracranial bleeds or masses. There is cerebral volume loss for age, with resultant ventricular and sulcal prominence. There are periventricular and deep white matter chronic small vessel ischemic changes. There is intracranial internal carotid artery atherosclerosis. Skull and face: Calvarium and visualized facial bones appear intact, without suspicious lesions. Sinuses: Visualized sinuses demonstrate scattered areas of mucosal thickening IMPRESSION: 1. No acute intracranial process. 2. Moderate to severe atrophy and chronic microvascular ischemic changes. The above findings were discussed with Dr.Justin Villa on 08/19/2022 at 1:17 a.m. This study fulfills neurological imaging criteria for inclusion or exclusion of acute stroke therapies based on available published neurological guidelines. Dictated by: Yany Dunne M.D. on 08/19/2022 at 1:16 Approved by: Yany Dunne M.D. on 08/19/2022 at 1:23
--- NOTE | 2022-08-19 00:36 | DI.CT.S_ITS ---
PROCEDURE: CT ANGIO HEAD AND NECK INDICATIONS: stroke TECHNIQUE: After the administration of intravenous contrast, 1 mm thick sections acquired from the aortic arch through the [place]. Post-contrast 4.5 mm thick sections then re-acquired from the foramen magnum to the vertex. 3-dimensional nfctolu-tokbvrtpy-xpckkptvck (MIP) and/or volume rendering reformats were acquired of the central intracranial vasculature and neck separately. For radiation dose reduction, the following was used: automated exposure control, adjustment of mA and/or kV according to patient size. COMPARISON: [facility], CT, CT STROKE, 08/19/2022, 0:46. [facility], CT, CT HEAD/BRAIN WO CON, 07/10/2022, 14:57. FINDINGS: Image quality: Excellent. BRAIN: The ventricular system and cortical sulci demonstrate atrophy, consistent for the patient's stated age. There are areas of hypodensity within the periventricular and subcortical white matter. There is no acute intra-or extra axial fluid collection. No acute hemorrhage, mass lesion or midline shift. Brainstem is unremarkable. Globes are symmetrical. Sinuses are aerated. Osseous structures are intact. HEAD CT ANGIOGRAPHY: Anterior circulation: Intracranial internal carotid arteries are normal in size and flow. The flow within the paired anterior cerebral arteries is normal and symmetric. The flow within the middle cerebral arteries is normal and symmetric. The anterior communicating artery is seen. No aneurysms are seen. Posterior circulation: Left vertebral artery dominance. Visualized portions of the vertebral arteries demonstrate normal caliber, and join to form a normal appearing basilar artery. Flow within the posterior cerebral arteries is normal and symmetric. No aneurysms are seen. NECK CT ANGIOGRAPHY: Carotid system: The great vessels demonstrate a conventional anatomy as they arise from the aortic arch. The origins of the common carotid arteries appear patent. The common carotid arteries demonstrate normal caliber and courses. The bifurcation regions are both widely patent. The internal carotid arteries demonstrate normal calibers and courses. Posterior circulation: The origins of the vertebral arteries both appear widely patent. The more superior extracranial portions of both vertebral arteries also demonstrate normal courses and calibers. They join to form a normal appearing basilar artery. Soft tissues: Visualized neck soft tissues demonstrate no suspicious abnormalities. Bones: No suspicious bony lesions. Visualized cervical spine appears normally aligned. IMPRESSION: 1. No acute intracranial process. 2. Moderate to severe atrophy and chronic microvascular ischemic changes. 3. No areas of hemodynamically significant stenosis, vascular occlusion or aneurysmal dilation within the anterior circulation. 4. No areas of hemodynamically significant stenosis, vascular occlusion or aneurysmal dilation within the posterior circulation. 5. No areas of hemodynamically significant stenosis, vascular occlusion or aneurysmal dilation within the neck vasculature. Any quantitative measurements of stenosis were performed using NASCET criteria. Dictated by: Yany Dunne M.D. on 08/19/2022 at 1:30 Approved by: Yany Dunne M.D. on 08/19/2022 at 1:33
[2022-08-19 01:06] LABS: Ur Creatinine Normal (Normal); Ur Specific Gravity Normal (Normal); Urine Tetrahydrocannabinol Negative (Negative); Urine pH Normal (Normal)
[2022-08-19 01:07] LABS: UR Morphine/Opiate cutoff 300 Negative (Negative); Urine Amphetamines Negative (Negative); Urine Barbiturates Negative (Negative); Urine Benzodiazepines Negative (Negative); Urine Cocaine Negative (Negative); Urine MDMA Negative (Negative); Urine Methadone Negative (Negative); Urine Methamphetamines Negative (Negative); Urine Oxycodone Negative (Negative); Urine Phencyclidine Negative (Negative); Urine Tricyclic Antidepressant Negative (Negative)
[2022-08-19 01:13] LABS: Add Manual Diff / Slide Review NO; Basophils Absolute Auto 0 /uL (0-100); Basophils Percent Auto 0.6 % (0-2); Eosinophils Absolute Auto 700 /uL (0-450); Eosinophils Percent Auto 9.8 % (2-4); Hematocrit 27.5 % (41-53); Hemoglobin 9.5 g/dL (13.5-17.5); Lymphocytes Absolute Auto 1200 /uL (1100-4500); Lymphocytes Percent Auto 17.5 % (25-40); Mean Corpuscular HGB Conc 34.7 % (30-36); Mean Corpuscular Hemoglobin 34.3 PG (26-34); Mean Corpuscular Volume 98.8 fL (80-100); Monocytes Absolute Auto 600 /uL (0-900); Monocytes Percent Auto 9.3 % (3-14); Neutrophils Absolute Auto 4300 /uL (1500-7000); Neutrophils Percent Auto 62.8 % (50-75); Platelet Count 188 X10^3/uL (150-400); Red Blood Cell Count 2.78 X10^6/uL (4.5-5.9); Red Cell Distribution Width 14.4 % (11.6-14.8); White Blood Cell Count 6.8 X10^3/uL (4.5-11.0)
[2022-08-19 01:20] LABS: INR 1.1 (0.9-1.3); Prothrombin Time 12.5 SECONDS (10.1-12.7)
[2022-08-19 01:23] LABS: PTT Partial Thromboplastin Tim 33 SECONDS (26-36)
[2022-08-19 01:24] LABS: Alanine Aminotransferase 23 IU/L (<50); Albumin 3.6 g/dL (3.5-5.0); Albumin Globulin Ratio 1.1 (1.0-2.8); Alkaline Phosphatase 102 U/L (38-126); Aspartate Aminotransferase 29 IU/L (17-59); BUN Creatinine Ratio 31.5 (6-22); Bilirubin Total 0.5 mg/dL (0.2-1.3); Blood Urea Nitrogen 34 mg/dL (9-20); Calcium 8.8 mg/dL (8.4-10.2); Carbon Dioxide 28 mmol/L (22-32); Chloride 103 mmol/L (98-107); Creatine Kinase 47 U/L (55-170); Estimated Glomerular Filt Rate > 60 mL/min (>60); Ethanol (ETOH) < 10 mg/dL; Globulin 3.2 g/dL (1.7-4.1); Glucose 144 mg/dL (80-110); HEMOLYSIS 15 (0-50); Potassium 4.1 mmol/L (3.4-5.1); Sodium 137 mmol/L (137-145); Total Protein 6.8 g/dL (6.3-8.2)
[2022-08-19 01:35] LABS: Troponin I 0.021 ng/mL (0.01-0.034)
[2022-08-19 01:38] LABS: COVID19 -Nasal RAPID Negative (Negative)
[2022-08-19 02:02] LABS: Appearance Urine UA CLEAR; Bilirubin Urine UA NEGATIVE (NEGATIVE); Color Urine UA YELLOW; Glucose Urine UA NEGATIVE (Negative); Ketones Urine UA NEGATIVE (NEGATIVE); Leukocyte Esterase Urine UA NEGATIVE (NEGATIVE); Nitrite Urine UA NEGATIVE (Negative); Occult Blood Urine UA NEGATIVE (Negative); Protein Urine UA 2+ (Negative)
[2022-08-19 02:06] LABS: Bacteria Urine None Seen; Culture Indicated Urine Cult Not Indicated; RBC Urine None Seen (0-5/HPF); Squamous Epithelial Cell Urine None Seen (0-5/HPF); WBC Urine None Seen (0-5/HPF)
--- NOTE | 2022-08-19 03:03 | DI.MRI.S_ITS ---
PROCEDURE: MR HEAD/BRAIN WO/W CON INDICATIONS: altered, recent stroke, per Neuro TECHNIQUE: Noncontrast axial T1 spin echo, axial T2 fast spin echo, sagittal and axial FLAIR, coronal T2 fast spin echo, axial gradient echo, axial diffusion and ADC through the brain. After the administration of contrast, axial and coronal and sagittal 3D VIBE or T1 spin echo with fat saturation through the brain. COMPARISON: [facility], , MR HEAD/BRAIN WO CON, 07/10/2022, 18:50. FINDINGS: Image quality: Good CSF spaces: Basal cisterns are patent. Lateral ventricles are symmetric. Volume: Volume loss. Periventricular white matter signal abnormality most commonly seen with small vessel disease. These findings are moderate Brain: There is acute diffusion restriction along the left thalamus, adjacent white matter, and basal ganglia, new compared to June. Associated susceptibility compatible with small hemorrhage. Previous areas of right frontal diffusion restriction are still visible, but less conspicuous. No suspicious enhancement. Craniofacial structures: No displaced fracture. Sinuses are clear. Orbits are intact. IMPRESSION: New acute infarct in the left basal ganglia, thalamus, and adjacent white matter. Associated susceptibility indicating small adjacent hemorrhage. Evolving infarction in the right frontal region again seen. Dictated by: Prosper Alba M.D. on 08/19/2022 at 11:43 Approved by: Prosper Alba M.D. on 08/19/2022 at 11:47
[2022-08-19] MEDS: ASPIRIN EC 325 MG TABLET PO (12:49)
[2022-08-19] MEDS: HEPARIN DRIP 25,000 UNIT/500 ML IV.SOLN 16.329 UNIT IV (13:00)
== END 2022-08-19 14:45 | disposition short-term general hospital (02) ==
PROVIDERS: Emergency Medicine; Emergency Provider Emergency Medicine; PCP Internal Medicine
DX: I63.9 Cerebral infarction, unspecified (principal); I51.89 Other ill-defined heart diseases; R29.701 NIHSS score 1; Z79.899 Other long term (current) drug therapy; Z20.822 Contact with and (suspected) exposure to COVID-19
CPT/HCPCS: 36415; 70450; 70496; 70498; 70553; 80053; 80305; 80320; 81001; 81003; 82550; 82962; 84484; 85025; 85610; 85730; 87040; 87635; 93005; 93010; 96365; 99285; 99291; C9803; J1644; Q9967

== ENCOUNTER → 2022-11-10 10:18 | Outpatient (CLI) | payer MEDICARE, SELFPAY ==
[2022-07-10 17:40] VITALS: BMI 20.5
--- NOTE | 2022-11-10 | DI.RAD.S_ITS ---
PROCEDURE: FL BARIUM SWALLOW W SPEECH INDICATIONS: Dysphagia, unspecified COMPARISON: None. TECHNIQUE: Examination was conducted in conjunction with speech pathology per standard protocol. In the lateral projection, filming was performed of the patient swallowing. AP projection filming may also be performed with patient swallowing. COMPARISON: FINDINGS: No tracheal aspiration observed during the exam. Deep laryngeal penetration observed with nectar thick barium during one trial. Mild vallecular and piriform sinus residue. IMPRESSION: 1. No tracheal aspiration visualized during the exam. 2. Please see the speech pathologist report for additional details. Dictated by: Paul Dahl M.D. on 11/10/2022 at 12:49 Approved by: Paul Dahl M.D. on 11/10/2022 at 12:50
--- NOTE | 2022-11-10 13:32 | ST.SWALLOW ---
Visit Care Team Role Provider Type Richar Pettit MD Attending Provider Physician Family Provider Primary Care Provider Referring Provider Specialty: Internal Medicine Pediatrics Address: [address] [place] [address], [id number] Email: [email or web address] Modified Barium Swallow Study BA[employer]NA [employer]ENING ROOM SUPERVISOR Modified Barium Swallow Study Start: 11/10/22 11:58 Freq: Status: Active Protocol: Document 11/10/22 11:58 LNK (Rec: 11/10/22 13:32 LNK [id number]) Modified Barium Swallow Study Total Time Visit Start Time 10:30 Visit Stop Time 11:15 Total Visit Minutes [address] Pettit Reason for Referral dysphagia Patient Information Identification Type Name,Date of Patient History Pt was seen for a Modified Barium Swallow Study (MBSS) at their referral of Dr. Pettit. According to Dr. Pettit' records reviewed, the pt's PHM includes: Type I DDM, rheumatoid arthritis a left thalamic basal ganglia stroke with stable hemorrhagic conversion G-tube (placed , per ), anemia, weight loss, difficulty with memory, expressive aphasia, and some cognitive deficit along with some generalized weakness and deconditioning. According to records, pt was seen at ED with neurological changes on and 08/15/22. Subjective Observations Pt presented as underweight, frail and in a wheel chair. Pt was accompanied to the MBSS by his , who served as historian. Pt's reported that pt had G-tube placement at [facility] in [place] on 09/30/22. He is currently receiving ST services through . Pt's noted that the BANANA RIPENING ROOM SUPERVISOR () has requested MBSS referral to determine current swallow status and to determine pt's safety for PO intake. Pt was seated in the fluoroscopy chair with assistance. He was able to follow all directions and answered all questions appropriately. Procedures and instructions were provided to pt, after which he agreed to proceed. AP imaging was not conducted due to pt's difficulty with standing without assistance. Patient Positioning Position View Lateral Imaging Lateral View Textures Administered Trials Presented Thin Liquid via Spoon (IDDSI 0 ),Thin Liquid via Cup (IDDSI 0 ),Mildly Thick Liquid via Spoon (IDDSI 2),Mildly Thick Liquid via Cup (IDDSI 2), Moderately Thick Liquid via Spoon (IDDSI 3),Regular (IDDSI 7) Barium Tablet Yes The IDDSI Framework Protocol: IDDSI.1 Oral Impairment Source: The Modified Barium Swallow Impairment Profile (MBSImP??) Lip Closure No labial escape Tongue Control During Bolus Hold Cohesive bolus between tongue to palatal seal Bolus Preparation/Mastication Slow prolonged chewing/mashing with complete re-collection Bolus Transport/Lingual Motion Repetitive/disorganized tongue motion Oral Residue Trace residue lining oral structures Location Tongue Initiation of Pharyngeal Swallow Bolus head at pyriforms Additional Oral Impairment Observations Informal observation indicated oral structures and function to be WFL. Dentition was natural in good hygeine. ORAL PHASE: Pt demonstrated slowed mastication with a rotary chew . Disorganized and repetitive tongue movements were observed across all trials. The pt was observed to chew all liquids before swallowing. Pharyngeal Impairment Source: The Modified Barium Swallow Impairment Profile (MBSImP??) Soft Palate Elevation No bolus between soft palate & pharyngeal wall Laryngeal Elevation Part.sup.move.thyroid cart/ part.approx.arytenoids to epiglot.petiole Anterior Hyoid Excursion Partial anterior movement Epiglottic Movement Complete inversion Laryngeal Vestibular Closure Incomplete; narrow column air/ contrast in laryngeal vestibule Pharyngeal Stripping Wave Present - complete Pharyngoesophageal Segment Opening Partial distention/partial duration; partial obstruction of flow Tongue Base Retraction Narrow column of contrast/air betwn tongue base & post. pharyngeal wall Pharyngeal Residue Collection of residue within/ on pharyngeal structures Location Diffuse (>3 areas) Additional Pharyngeal Impairment Mild tongue base weakness Observations negatively impacted the hyolaryngeal elevation and movement. Epiglottic inversion and laryngeal seal were observed to be adequate initially; however as the MBSS progressed, a narrow column of contrast was observed between the epiglottis and the laryngeal vestibule was noted. Penetration into the laryngeal vestibule was observed x2 with large, consecutive swallows of NTL. No tracheal aspiration was observed across trials. With small, single sips of all liquids, no penetration or aspiration was observed. Pt safely tolerated small bites and sips, one at a time across all trials. With repeated trials, a general pharyngeal fatigue was observed, potentially increasing aspiration risk. A/P View The IDDSI Framework Protocol: IDDSI.1 A/P View Observations Esophageal Clearance Upright Position Esophageal retention Esophageal Function WFL Additional A-P Observations Esophagus was observed in the lateral position with the pt seated. Osteophytes at C4-C5, C5-C6, C6-C7 and C7-T1 were observed and appeared to narrow the upper esophagus. Flow through the esophagus was not negatively impacted. Barium tablet trials with 1) half tablet and 2) whole tablet were observed to clear the esophagus WFL. In the lateral view, and consistent across all trials, contrast was observed in a ovoid shape at the C7-T1 level. This appeared as if to be a small diverticula, but further assessment would be necessary to determine its etiology. An AP view was not possible to view the esophagus due to pt weakness. Clinical Impressions Dysphagia Type Oral,Pharyngeal Findings Please review the Oral, Pharyngeal and Esophageal summaries above for specific details. Overall, the pt presented with mild oropharyngeal dysphagia characterized by diminished oral musculature control, and weakness. Pt safely tolerated all trials when presented in small, single bites/sips. No tracheal aspiration was observed. Laryngeal penetration without aspiration was noted with consecutive swallows of nectar thick liquids. According to the pt's , the HH BANANA RIPENING ROOM SUPERVISOR requested the MBSS to determine if the pt is safe to consume comfort/ recreational meals. The results of this MBSS appear to indicate that the pt can safely tolerate PO intake with the above described precautions. With fatigue, the pt's risk of aspiration increases and should be monitored as pt consumes foods /liquids PO. Continued ST is recommended to implement a program of safe PO intake. Rehabilitation Potential Excellent Patient Appropriate for Therapy Yes: continue current HH swallowing therapy as indicated Recommendations Diet Liquids Order Thin (IDDSI 0) Diet Order Minced & Moist (IDDSI 5) Medication Recommendation As Tolerated,Crushed in Carrier Comments Pt demonstrated safe tolerance of PO intake of tablet with thin liquids Additional Dietary Needs Single Sips,Controlled Sips,No Straws,1:1 Supervision, Encourage to Self-Feed Aspiration Precautions Recommended Precautions Upright at 90 Degrees,Small Bites/Sips,Liquids from Cup Additional Precautions No straws; small single sips/ bites Treatment Plan Additional Recommended Referrals Continue HH/ST services Therapy Strategy Recommendations Sitting Upright (90 deg),No Straw,Liquids from Cup,Small Bites and Sips
== END ==
PROVIDERS: Family Provider Pediatrics; PCP Pediatrics; Referring Provider Pediatrics; Visit Provider Pediatrics
DX: R13.10 Dysphagia, unspecified (principal); I63.81 Other cerebral infarction due to occlusion or stenosis of small artery
CPT/HCPCS: 74230; 92611

== ENCOUNTER 2023-01-05 19:51 | Emergency (ER) | payer MEDICARE, SELFPAY ==
[2022-07-10 17:40] VITALS: BMI 20.5
[2023-01-05 20:00] VITALS: BP 110/53; PULSE 63; RESP 18; TEMP 36.8; O2SAT 98; BMI 20.5
--- NOTE | 2023-01-05 21:00 | ED_ITS ---
HPI - Skin/Abscess/Foreign Bdy General Chief complaint: Skin/Abscess/Foreign Body Stated complaint: G tube infection Time Seen by Provider: 01/05/23 21:00 Source: patient and family Mode of arrival: Wheelchair Limitations: no limitations History of Present Illness HPI narrative: 82-year-old gentleman with a history of type 1 diabetes, hyperlipidemia, hypertension, rheumatoid arthritis and recent left basal ganglia/thalamic infarct for which he has a G-tube in place. There is scheduled to get the G- tube removed on January 23. His does the majority of the cleaning and was worried that there was more sticky smelly discharge and a small amount of blood. She took him to their primary doctor this morning was told to come back at 11 and then was told that she needed come to the emergency department because they were unable to see her. He reports no fever, cough, chills. He has no abdominal pain. Has not noticed a significant change in baseline sugars. Related Data Home Medications Medication Instructions Recorded Confirmed hydroxychloroquine 200 mg tablet 200 mg PO BID 04/04/20 12/26/22 insulin aspart U-100 100 unit/mL 6 unit SUBCUT TIDWMEAL 04/04/20 12/26/22 (3 mL) subcutaneous pen (Novolog FlexPen U-100 Insulin aspart) insulin glargine 100 unit/mL (3 12 unit SUBCUT BEDTIME 04/04/20 12/26/22 mL) subcutaneous pen (Lantus Solostar U-100 Insulin) vitamin B complex 1 tab PO DAILY 08/03/20 12/26/22 aspirin 81 mg chewable tablet 1 tab PO DAILY 10/03/22 12/26/22 clopidogrel 75 mg tablet 75 mg PO DAILY 10/03/22 12/26/22 metoprolol tartrate 50 mg tablet 50 mg PO BID 10/03/22 12/26/22 rosuvastatin 5 mg tablet 5 mg PO DAILY 10/03/22 12/26/22 Previous Rx's Medication Instructions Recorded cyclobenzaprine 5 mg tablet 5 mg PO TID #90 tabs 12/26/22 Allergies Allergy/AdvReac Type Severity Reaction Status Date / Time shellfish derived AdvReac Verified 12/26/22 10:08 Review of Systems Review of Systems Narrative: Pertinent positive and negative findings as per HPI Patient History Medical History (Updated 01/05/23 @ 21:15 by Gloria Obrien MD) Non-ST elevation myocardial infarction (NSTEMI) Diabetes mellitus, labile Thalamic stroke Rheumatoid arthritis Anemia Cataract Diabetes History of colon polyps COPD (chronic obstructive pulmonary disease) Ingrowing toenail of left foot Surgical History History of cataract surgery Total knee replacement status Social History household members: spouse Smoking Status: Never smoker alcohol intake: former Smoking Status: Never smoker alcohol intake frequency: other Substance Use Type: does not use Exam Initial Vital Signs Initial Vital Signs: Vital Signs Temperature 98.3 F 01/05/23 20:00 Pulse Rate 63 01/05/23 20:00 Respiratory Rate 18 01/05/23 20:00 Blood Pressure 110/53 L 01/05/23 20:00 Pulse Oximetry 98 01/05/23 20:00 Oxygen Delivery Method Room Air 01/05/23 20:00 General: Alert appropriate in no acute distress Respiratory: Able to speak in full sentences, no obvious respiratory distress Skin: No obvious rashes, warm and dry Abdomen: G-tube site is very healthy-looking. There is a minor amount of debris and a small polyp that is developed from the dermal level that has a minor amount of bleeding. There is no odor,, no tenderness with deeper palpation or cleaning and no overall abdominal pain or tenderness Neurologic: Grossly intact no obvious asymmetries or abnormalities Psych: appropriate insight and affect, cooperative Course Vital Signs Vital signs: Vital Signs - 8 hr 01/05/23 20:00 Temperature 98.3 F Pulse Rate 63 Respiratory Rate 18 Blood Pressure 110/53 L Pulse Oximetry 98 Oxygen Delivery Method Room Air MDM - Skin/Abscess/Foreign Bdy MDM Narrative Medical decision making narrative: 82-year-old man with type 1 diabetes recent stroke has a G-tube in place. His was concerned with a bit of debris around the G-tube. The site itself actually looks quite good. The is doing a clare job of skin care and G-tube care. We talked about continued cleaning as she is with soap and water and a bit of antibiotic ointment in the mornings and then adding just a simple bit of water with a cotton swab to remove any debris that is collected in the evenings. There is no sign of sepsis, blockage, abscess, superficial cellulitis, deeper cellulitis Patient is safe for discharge home questions have been answered, the G site tube is cleaned and redressed by me in the emergency department Discharge Plan Departure Patient Disposition: Home Clinical Impression: Gastric tube granulation tissue Instructions: How to Care for Your PEG Tube Activity Restrictions/Additional Instructions: Thank you for coming in today I am sorry that you were not able to get in to your primary care doctor this morning, I understand the frustrations. I appreciate your concern regarding the G-tube. At this point, you have done a fantastic job in keeping it clean and dry. The tiny little polyp is called granulation tissue and that will cause a little bit of bleeding. The deeper debris that you are noticing simply needs to be cleaned as you are doing. I do not suspect any evidence of deeper infection, skin infection or reasons to do any additional blood work, CT scans or hospital admission. If you find that you are getting worse or develop any new symptoms, please feel free to return to the emergency department for further evaluation. Prescriptions: No Action cyclobenzaprine 5 mg tablet 5 mg PO TID Qty: 90 3RF rosuvastatin 5 mg tablet 5 mg PO DAILY aspirin 81 mg tablet,chewable 1 tab PO DAILY clopidogrel 75 mg tablet 75 mg PO DAILY metoprolol tartrate 50 mg tablet 50 mg PO BID hydroxychloroquine 200 mg tablet 200 mg PO BID insulin aspart U-100 [Novolog FlexPen U-100 Insulin] 100 unit/mL (3 mL) insulin pen 6 unit SUBCUT TIDWMEAL insulin glargine [Lantus Solostar U-100 Insulin] 100 unit/mL (3 mL) insulin pen 12 unit SUBCUT BEDTIME vitamin B complex Tablet 1 tab PO DAILY Referrals: Asha Figueroa MD [Primary Care Provider] - Stand Alone Forms: Patient Portal/API
[2023-01-05 21:24] VITALS: BP 107/53; PULSE 62; RESP 16; O2SAT 99
== END 2023-01-05 21:26 | disposition home or self-care (01) ==
PROVIDERS: Emergency Provider Emergency Medicine; Family Provider Pediatrics; PCP Student in an Organized Health Care Education/Training Program
DX: K94.29 Other complications of gastrostomy (principal)
CPT/HCPCS: 99281

== ENCOUNTER 2023-02-25 14:30 | Outpatient (RCR) | payer MEDICARE, SELFPAY ==
[2022-07-10 17:40] VITALS: BMI 20.5
--- NOTE | 2022-11-28 10:27 | PT.OIE ---
Current Diagnoses Other cerebral infarction due to occlusion or stenosis of small artery (11/28/22) Weakness (11/28/22) Past Medical History (Last Updated 11/06/22 @ 06:22 by Richar Pettit MD) Anemia Cataract COPD (chronic obstructive pulmonary disease) Diabetes Diabetes mellitus, labile History of colon polyps Ingrowing toenail of left foot Rheumatoid arthritis Thalamic stroke Past Surgical History (Last Reviewed 08/19/22 @ 02:15 by Pancho Villa DO) History of cataract surgery Total knee replacement status Visit Care Team Role Provider Type Richar Pettit MD Attending Provider Physician Family Provider Primary Care Provider Referring Provider Specialty: Internal Medicine Pediatrics Address: [address] [place] [address], [address] Email: [email or web address] Physical Therapy Initial Evaluation PT-OP-A Visit Information Start: 11/28/22 10:27 Freq: Status: Active Protocol: Document 11/28/22 10:27 AM (Rec: 11/28/22 13:00 AM [id number]) Out-Patient Physical Therapy Visit Information Visit Information Visit Type Initial Evaluation Visit Start Time 10:32 Visit Stop Time 11:17 Total Visit Minutes 45 Visit Number 1 Number of DEVELOPMENT ADMINISTRATOR Visits 0 Evaluation Information Evaluation Date 11/28/22 Precautions Precautions Fall risk, feeding tube PT-OP-B Current Condition Start: 11/28/22 10:27 Freq: Status: Active Protocol: Document 11/28/22 10:27 AM (Rec: 11/28/22 13:00 AM [id number]) Current Condition History of Current Condition History of Current Condition 82-year-old male with history of rheumatoid arthritis presenting with his 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 Pt has had multiple CVA one in June and 1 in July. Pt has mild expressive apasia and cognitive impairment. Following inpatient, pt went to SNF for 4 days, though had a heart attack, ketoacidosis, and another small stroke. Pt has trouble swallowing, therefore has a GI tube. Pt had lost a lot of weight, though gaining back now. reports that he is much weaker and needs to build strength and balance. Pt's denies falls. Pt has a FWW at home. reports that he is able to walk 50ft with FWW. Pt does not have stairs. Treatment Goals Patient/Caregiver Goals To improve strength and balance Prior Functional Status Baseline Function- ADL's Independent Baseline Function- Mobility Independent Current Functional Impairments (Reported) Functional Limitations- ADL's Assist from with ADLs Functional Limitations- Mobility/Gait Needs assist with bed mobility . Pt's reports that he is able to walk, though fatigues quickly. She reports that he takes smaller steps with R LE and demonstrates flexed posture. Pt sleeps inclined on couch secondary to feeding tube precautions. PT-OP-D Balance Start: 11/28/22 10:27 Freq: Status: Active Protocol: Document 11/28/22 10:27 AM (Rec: 11/28/22 13:00 AM [id number]) OP-PT Balance Assessment Sitting Balance Static Sitting Balance Ability Good Dynamic Sitting Balance Ability Good Standing Balance Static Standing Balance Ability Fair Dynamic Standing Balance Ability Poor [place] Fall Scale Copyright Permission PT-OP-G Mobility & Gait Start: 11/28/22 10:27 Freq: Status: Active Protocol: Document 11/28/22 10:27 AM (Rec: 11/28/22 17:39 AM [id number]) OP Mobility Evaluation Bed Mobility Rolling Pt able to roll independently from side to side on tx table, though reports that he is unable to roll side to side on bed at home. Supine to and from Sit Pt able to transfer from supine <-> sit on tx table, though slow and reports low back pain. Transfers Sit to Stand CGA for STS. Occasionally requires more than 1 attempt. Use of bryce UE. Bed to Chair Transfers Pt requires cueing to square up in front of surface that he is transfering to. Car Transfers Pt almost missed car seat with transfer from w/c to car seat . CGA required OP Gait Assessment Gait Gait Assistance Required: Contact Guard Assist Distance (Feet) 210 Assistive Devices Assistive Device Gait Belt,Front Wheeled Walker Orthotic/Prosthetic Devices or Brace: No Gait Deviations General Gait Pattern Decreased Stride Length,Flexed Trunk,Narrow Based Gait Factors Limiting Gait Function Factors Limiting Gait Function Decreased Activity Tolerance, Decreased Strength,Limited Range of Motion,Pain,Poor Balance Comments Gait Comments Pt demonstrated decreased stride length when fatigued. reports that he typically has a decreased R stride compared to L, though was able to demonstrate symmetry with gait today. PT-OP-J Posture/Palpation/Skin Start: 11/28/22 10:27 Freq: Status: Active Protocol: Document 11/28/22 10:27 AM (Rec: 11/28/22 17:39 AM [id number]) Posture Evaluation Position Standing Head/C-Spine Posture Forward Head L-Spine Posture Flexed Shoulder Posture (L) Forward,(R) Forward PT-OP-K Range of Motion Start: 11/28/22 10:27 Freq: Status: Active Protocol: Document 11/28/22 10:27 AM (Rec: 11/28/22 17:39 AM [id number]) Hip Goniometric Range of Motion Hip Right Passive Comments R hamstring moderately limited Left Passive Comments L hamstring with moderate limitations PT-OP-M Strength Start: 11/28/22 10:27 Freq: Status: Active Protocol: Document 11/28/22 10:27 AM (Rec: 11/28/22 17:39 AM [id number]) Hip Strength Hip Manual Muscle Testing Right Flexion (L2) 4- Good- Extension (S1) 4- Good- Abduction 4- Good- Adduction 4- Good- Left Flexion (L2) 4- Good- Extension (S1) 4- Good- Abduction 4- Good- Adduction 4- Good- Knee Strength Knee Manual Muscle Testing Right Flexion (S2) 4- Good- Extension (L3) 4- Good- Left Flexion (S2) 4- Good- Extension (L3) 4- Good- Ankle/Foot Strength Ankle and Foot Manual Muscle Testing Right Dorsiflexion (L4) 4- Good- Plantarflexion (S1) 4- Good- Left Dorsiflexion (L4) 4- Good- Plantarflexion (S1) 4- Good- PT-OP-Q Treatments Start: 11/28/22 10:27 Freq: Status: Active Protocol: Document 11/28/22 10:27 AM (Rec: 11/28/22 17:39 AM [id number]) Gait Training Gait Activity Ambulation Description Ambulation in gym with FWW Device Used FWW Level of Assistance CGA Distance/Duration 2x200 ft Treatment Focus To improve endurance Self-Care/Home Management Treatment Education Patient Education Home Exercise Program Other Education Increase walking for exercise in house with present with gait belt on. W/c follow as needed. Increase STS squats frequency. Discussed HEP given to pt by home health. PT-OP-T Assessment and Plan Start: 10/06/23 10:27 Freq: Status: Active Protocol: Document 11/28/22 10:27 AM (Rec: 11/28/22 17:39 AM [id number]) Physical Therapy Assessment Rehab Potential Rehabilitation Potential Good Evaluation Complexity Number of Personal Factors/Comorbidities 3 or More Number of Body Systems Impaired 4 or More Clinical Presentation at Evaluation Stable Impairments Impairments Activity Tolerance,Balance, Coordination,Functional Activities,Functional Mobility ,Gait,Pain,Posture,ROM,Soft Tissue Mobility,Strength, Transfers Goals Strength Impairment Pt with LE strength grossly at 4-/5. Short Term Goal (STG) Pt with strength grossly at 4/ 5. STG Duration 01/02/23 Jail Goal (LTG) PT with LE strength grossly at 4+/5 LTG Duration 02/06/23 HEP Electric Meter Repairer Goal (LTG) Pt independent with HEP. LTG Duration 02/06/23 Transfer Impairment Pt able to transfer from sit to stand with CGA and occasional cues. Short Term Goal (STG) Pt independent with transfers from sit-stand. STG Duration 01/02/23 Electric Meter Repairer Goal (LTG) Pt able to transfer from sit- stand without use of UE from surface that is 22 inches high . LTG Duration 02/06/23 Bed mobility Impairment Pt unable to roll in bed at home or transfer from supine to sit without assist from . Short Term Goal (STG) Pt able to roll and transfer from supine-sit without assist at bed at home. STG Duration 01/02/23 Gait Impairment Pt able to walk 210 ft before need to sit secondary to fatigue. Short Term Goal (STG) Pt able to ambulate 500 ft before need to sit secondary to fatigue. STG Duration 01/02/23 Jail Goal (LTG) Pt able to ambulate 1000ft before need to sit secondary to fatigue. 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 Pt demonstrates LE weakness with LE grossly at 4- /5. Pt able to ambulate 200 ft x2 with FWW and CGA. Pt with decreased foot clearance and step length as he became fatigued. Pt able to demonstrate supine <-> sit transfers and rolling independently though sore and with reported low back pain. Pt able to transfer from sit- stand with CGA, though occasionaly requires more than 1 attempt and cueing. Pt requires cueing for safety with transfers from bed <-> chair. Pt would benefit from continued PT to progress strength, endurance and balance to improve independence and safety with functional tasks. Physical Therapy Plan Frequency and Duration Frequency of Treatment 2x/Week Duration of treatment (weeks) 10 Plan of Care Start Date 11/28/22 Plan of Care End Date 02/06/23 Therapeutic Interventions Therapeutic Interventions Balance Training,Coordination Training,Gait Training,Home Exercise Program,Joint Mobilizations,Manual Therapy, Neuromuscular Re-education, Patient/Caregiver Education, Self-Care/Home Management,Soft Tissue Mobilization,Taping, Therapeutic Activities, Therapeutic Exercises Modalities Cold Pack/Ice Massage,Electric Stimulation,Hot Packs, Ultrasound Next Visit Focus/Plan Next Note Type Treatment Note Next Visit Plan Do a 6MWT, further assess higher level balance challenges.
--- NOTE | 2022-11-28 10:27 | PT.OPPOC ---
Addendum entered and electronically signed by Cici Pierson, PT 02/25/23 15:28: send POC Original Note: Physical, Occupational & Speech Therapy At [facility] Current Diagnoses Other cerebral infarction due to occlusion or stenosis of small artery (11/28/22) Weakness (11/28/22) Visit Care Team Role Provider Type Richar Pettit MD Attending Provider Physician Family Provider Primary Care Provider Referring Provider Specialty: Internal Medicine Pediatrics Address: [address] [place] [address], [id number] Email: [email or web address] Plan Of Care PT-OP-T Assessment and Plan Start: 11/28/22 10:27 Freq: Status: Active Protocol: Document 11/28/22 10:27 AM (Rec: 11/28/22 17:39 AM [id number]) Physical Therapy Assessment Rehab Potential Rehabilitation Potential Good Evaluation Complexity Number of Personal Factors/Comorbidities 3 or More Number of Body Systems Impaired 4 or More Clinical Presentation at Evaluation Stable Impairments Impairments Activity Tolerance,Balance, Coordination,Functional Activities,Functional Mobility ,Gait,Pain,Posture,ROM,Soft Tissue Mobility,Strength, Transfers Goals Strength Impairment Pt with LE strength grossly at 4-/5. Short Term Goal (STG) Pt with strength grossly at 4/ 5. STG Duration 01/02/23 Regasification Plant Operator Goal (LTG) PT with LE strength grossly at 4+/5 LTG Duration 02/06/23 HEP Senior Care Goal (LTG) Pt independent with HEP. LTG Duration 02/06/23 Transfer Impairment Pt able to transfer from sit to stand with CGA and occasional cues. Short Term Goal (STG) Pt independent with transfers from sit-stand. STG Duration 01/02/23 Senior Care Goal (LTG) Pt able to transfer from sit- stand without use of UE from surface that is 22 inches high . LTG Duration 02/06/23 Bed mobility Impairment Pt unable to roll in bed at home or transfer from supine to sit without assist from . Short Term Goal (STG) Pt able to roll and transfer from supine-sit without assist at bed at home. STG Duration 01/02/23 Gait Impairment Pt able to walk 210 ft before need to sit secondary to fatigue. Short Term Goal (STG) Pt able to ambulate 500 ft before need to sit secondary to fatigue. STG Duration 01/02/23 Senior Care Goal (LTG) Pt able to ambulate 1000ft before need to sit secondary to fatigue. 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 Pt demonstrates LE weakness with LE grossly at 4- /5. Pt able to ambulate 200 ft x2 with FWW and CGA. Pt with decreased foot clearance and step length as he became fatigued. Pt able to demonstrate supine <-> sit transfers and rolling independently though sore and with reported low back pain. Pt able to transfer from sit- stand with CGA, though occasionaly requires more than 1 attempt and cueing. Pt requires cueing for safety with transfers from bed <-> chair. Pt would benefit from continued PT to progress strength, endurance and balance to improve independence and safety with functional tasks. Physical Therapy Plan Frequency and Duration Frequency of Treatment 2x/Week Duration of treatment (weeks) 10 Plan of Care Start Date 11/28/22 Plan of Care End Date 02/06/23 Therapeutic Interventions Therapeutic Interventions Balance Training,Coordination Training,Gait Training,Home Exercise Program,Joint Mobilizations,Manual Therapy, Neuromuscular Re-education, Patient/Caregiver Education, Self-Care/Home Management,Soft Tissue Mobilization,Taping, Therapeutic Activities, Therapeutic Exercises Modalities Cold Pack/Ice Massage,Electric Stimulation,Hot Packs, Ultrasound Next Visit Focus/Plan Next Note Type Treatment Note Next Visit Plan Do a 6MWT, further assess higher level balance challenges. Plan of Care Dates Plan of Care Start Date 11/28/22 Plan of Care End Date 02/06/23 Electronically Signed by: Eleonora Brush PT 11/28/22 [id number] If you are in agreement with this Plan of Care, please return a signed and dated copy. I have reviewed this Plan of Care and certify that the skilled therapy services above are required to meet the patient?s needs. Physician Signature Date Printed Name and Credentials Clinical Instructor Signature Printed Name and Credentials
--- NOTE | 2022-12-01 01:30 | PT.OTN ---
Current Diagnoses Other cerebral infarction due to occlusion or stenosis of small artery (12/01/22) Weakness (12/01/22) Physical Therapy Treatment Note PT-OP-A Visit Information Start: 11/28/22 10:27 Freq: Status: Active Protocol: Document 12/01/22 12:49 SP (Rec: 12/01/22 13:34 SP [id number]) Out-Patient Physical Therapy Visit Information Visit Information Visit Type Treatment Note Visit Start Time 12:49 Visit Stop Time 13:30 Total Visit Minutes 41 Visit Number 2 Number of BOILER SHOP MECHANIC Visits 1 Evaluation Information Evaluation Date 11/28/22 Precautions Precautions Fall risk, feeding tube PT-OP-B Current Condition Start: 11/28/22 10:27 Freq: Status: Active Protocol: Document 11/28/22 10:27 AM (Rec: 11/28/22 13:00 AM [id number]) Current Condition History of Current Condition History of Current Condition 82-year-old male with history of rheumatoid arthritis presenting with his 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 Pt has had multiple CVA one in June and 1 in July. Pt has mild expressive apasia and cognitive impairment. Following inpatient, pt went to SNF for 4 days, though had a heart attack, ketoacidosis, and another small stroke. Pt has trouble swallowing, therefore has a GI tube. Pt had lost a lot of weight, though gaining back now. reports that he is much weaker and needs to build strength and balance. Pt's denies falls. Pt has a FWW at home. reports that he is able to walk 50ft with FWW. Pt does not have stairs. Treatment Goals Patient/Caregiver Goals To improve strength and balance Prior Functional Status Baseline Function- ADL's Independent Baseline Function- Mobility Independent Current Functional Impairments (Reported) Functional Limitations- ADL's Assist from with ADLs Functional Limitations- Mobility/Gait Needs assist with bed mobility . Pt's reports that he is able to walk, though fatigues quickly. She reports that he takes smaller steps with R LE and demonstrates flexed posture. Pt sleeps inclined on couch secondary to feeding tube precautions. PT-OP-C Subjective Start: 11/28/22 10:27 Freq: Status: Active Protocol: Document 12/01/22 12:49 SP (Rec: 12/01/22 13:34 SP [id number]) OP-PT Subjective Patient Comments Patient Comments Pt reports tired after last tx but did ok. PT-OP-D Balance Start: 11/28/22 10:27 Freq: Status: Active Protocol: Document 11/28/22 10:27 AM (Rec: 11/28/22 13:00 AM [id number]) OP-PT Balance Assessment Sitting Balance Static Sitting Balance Ability Good Dynamic Sitting Balance Ability Good Standing Balance Static Standing Balance Ability Fair Dynamic Standing Balance Ability Poor [place] Fall Scale Copyright Permission PT-OP-E Functional Tests Start: 11/28/22 10:27 Freq: Status: Active Protocol: Document 12/01/22 12:49 SP (Rec: 12/03/22 07:23 SP [id number]) Functional Tests 6 Minute Walk Test Distance 361 ft Device Used FWW Comments cued proximity FWW, increase RLE foot clearance, upright posture PT-OP-G Mobility & Gait Start: 11/28/22 10:27 Freq: Status: Active Protocol: Document 11/28/22 10:27 AM (Rec: 11/28/22 17:39 AM [id number]) OP Mobility Evaluation Bed Mobility Rolling Pt able to roll independently from side to side on tx table, though reports that he is unable to roll side to side on bed at home. Supine to and from Sit Pt able to transfer from supine <-> sit on tx table, though slow and reports low back pain. Transfers Sit to Stand CGA for STS. Occasionally requires more than 1 attempt. Use of bryce UE. Bed to Chair Transfers Pt requires cueing to square up in front of surface that he is transfering to. Car Transfers Pt almost missed car seat with transfer from w/c to car seat . CGA required OP Gait Assessment Gait Gait Assistance Required: Contact Guard Assist Distance (Feet) 210 Assistive Devices Assistive Device Gait Belt,Front Wheeled Walker Orthotic/Prosthetic Devices or Brace: No Gait Deviations General Gait Pattern Decreased Stride Length,Flexed Trunk,Narrow Based Gait Factors Limiting Gait Function Factors Limiting Gait Function Decreased Activity Tolerance, Decreased Strength,Limited Range of Motion,Pain,Poor Balance Comments Gait Comments Pt demonstrated decreased stride length when fatigued. reports that he typically has a decreased R stride compared to L, though was able to demonstrate symmetry with gait today. PT-OP-J Posture/Palpation/Skin Start: 11/28/22 10:27 Freq: Status: Active Protocol: Document 11/28/22 10:27 AM (Rec: 11/28/22 17:39 AM [id number]) Posture Evaluation Position Standing Head/C-Spine Posture Forward Head L-Spine Posture Flexed Shoulder Posture (L) Forward,(R) Forward PT-OP-K Range of Motion Start: 11/28/22 10:27 Freq: Status: Active Protocol: Document 11/28/22 10:27 AM (Rec: 11/28/22 17:39 AM [id number]) Hip Goniometric Range of Motion Hip Right Passive Comments R hamstring moderately limited Left Passive Comments L hamstring with moderate limitations PT-OP-M Strength Start: 11/28/22 10:27 Freq: Status: Active Protocol: Document 11/28/22 10:27 AM (Rec: 11/28/22 17:39 AM [id number]) Hip Strength Hip Manual Muscle Testing Right Flexion (L2) 4- Good- Extension (S1) 4- Good- Abduction 4- Good- Adduction 4- Good- Left Flexion (L2) 4- Good- Extension (S1) 4- Good- Abduction 4- Good- Adduction 4- Good- Knee Strength Knee Manual Muscle Testing Right Flexion (S2) 4- Good- Extension (L3) 4- Good- Left Flexion (S2) 4- Good- Extension (L3) 4- Good- Ankle/Foot Strength Ankle and Foot Manual Muscle Testing Right Dorsiflexion (L4) 4- Good- Plantarflexion (S1) 4- Good- Left Dorsiflexion (L4) 4- Good- Plantarflexion (S1) 4- Good- PT-OP-Q Treatments Start: 11/28/22 10:27 Freq: Status: Active Protocol: Document 12/01/22 12:49 SP (Rec: 12/01/22 13:34 SP [id number]) Therapeutic Exercises Sitting Exercises STS Sitting Exercise Name HEP reviewed Equipment Used black chair w/ arm rests use Reps/Minutes 5 STS in 43 sec Comments cued full stand/ TKE, slow descend controlled- good form with min cues Standing Exercises step taps Standing Exercise Name (trial future for LE strengthening) Equipment Used 4 step marching Standing Exercise Name initiated in PT 10/9 Side bilateral Resistance 2# leg wt Equipment Used facing use rail Reps/Minutes x10 Comments challenge with maintain stand posture HRTR Standing Exercise Name initiated in PT 10/9 Side bilateral Resistance 2# leg wt Equipment Used facing use rail Reps/Minutes 2x10 Comments verbal/tactile cues elongated posture, COG over JIGAR Gait Training Gait Activity 6MWT Device Used FWW Level of Assistance CG/close SBA Surface tile/carpet Distance/Duration 361ft in 6 min, 420 ft total Treatment Focus foot clearance & stride R>L, proximity to FWW, posturing Comments cued proximity to FWW, more upright posture, increased R>L foot clearance and stride to allow decreased BUE WB on FWW and increase energy conservation, occasional cues for safety FWW over carpet/ tile transitioning to decreased catching/fall risk. Neuro Re-Education Treatment Balance Activities stride stance Details looking forward, head turns Surface floor Equipment near Rail on R Reps/Duration 2min Comments cued for COG over JIGAR of B feet, elongated posture, core and glut engagement, slow head turns looking at items in room help stabilize. PT-OP-T Assessment and Plan Start: 11/28/22 10:27 Freq: Status: Active Protocol: Document 12/01/22 12:49 SP (Rec: 12/01/22 13:34 SP [id number]) Physical Therapy Assessment Goals Strength Impairment Pt with LE strength grossly at 4-/5. Short Term Goal (STG) Pt with strength grossly at 4/ 5. STG Duration 01/02/23 Radiologic Electronic Specialist Goal (LTG) PT with LE strength grossly at 4+/5 LTG Duration 02/06/23 HEP Radiologic Electronic Specialist Goal (LTG) Pt independent with HEP. LTG Duration 02/06/23 Transfer Impairment Pt able to transfer from sit to stand with CGA and occasional cues. Short Term Goal (STG) Pt independent with transfers from sit-stand. STG Duration 01/02/23 Prison Goal (LTG) Pt able to transfer from sit- stand without use of UE from surface that is 22 inches high . LTG Duration 02/06/23 Bed mobility Impairment Pt unable to roll in bed at home or transfer from supine to sit without assist from . Short Term Goal (STG) Pt able to roll and transfer from supine-sit without assist at bed at home. STG Duration 01/02/23 Gait Impairment Pt able to walk 210 ft before need to sit secondary to fatigue. Short Term Goal (STG) Pt able to ambulate 500 ft before need to sit secondary to fatigue. STG Duration 01/02/23 Prison Goal (LTG) Pt able to ambulate 1000ft before need to sit secondary to fatigue. LTG Duration 02/06/23 Assessment Summary Assessment Pt was able to increase his distance and completed 6MWT, improved less BUE WB on FWW and foot clearance/stride with cues. He was able to tolerate increase resistance with PREs , required seated rest breaks between activities for tiring recovery. Pt would benefit from continued PT to progress strength, endurance and balance to improve independence and safety with functional tasks. Physical Therapy Plan Frequency and Duration Frequency of Treatment 2x/Week Duration of treatment (weeks) 10 Plan of Care Start Date 11/28/22 Plan of Care End Date 02/06/23 Therapeutic Interventions Therapeutic Interventions Balance Training,Coordination Training,Gait Training,Home Exercise Program,Joint Mobilizations,Manual Therapy, Neuromuscular Re-education, Patient/Caregiver Education, Self-Care/Home Management,Soft Tissue Mobilization,Taping, Therapeutic Activities, Therapeutic Exercises Modalities Cold Pack/Ice Massage,Electric Stimulation,Hot Packs, Ultrasound Next Visit Focus/Plan Next Note Type Treatment Note Next Visit Plan Continue added resistance to LE PREs and progress into higher level balance challenges.
--- NOTE | 2022-12-03 14:18 | PT.OTN ---
Current Diagnoses Other cerebral infarction due to occlusion or stenosis of small artery (12/03/22) Weakness (12/03/22) Physical Therapy Treatment Note PT-OP-A Visit Information Start: 11/28/22 10:27 Freq: Status: Active Protocol: Document 12/03/22 14:18 AM (Rec: 12/03/22 14:38 AM [id number]) Out-Patient Physical Therapy Visit Information Visit Information Visit Type Treatment Note Visit Start Time 14:18 Visit Stop Time 15:03 Total Visit Minutes 40 Visit Number 3 Number of MAILROOM COURIER Visits 1 PT-OP-B Current Condition Start: 11/28/22 10:27 Freq: Status: Active Protocol: Document 11/28/22 10:27 AM (Rec: 11/28/22 13:00 AM [id number]) Current Condition History of Current Condition History of Current Condition 82-year-old male with history of rheumatoid arthritis presenting with his 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 Pt has had multiple CVA one in June and 1 in July. Pt has mild expressive apasia and cognitive impairment. Following inpatient, pt went to SNF for 4 days, though had a heart attack, ketoacidosis, and another small stroke. Pt has trouble swallowing, therefore has a GI tube. Pt had lost a lot of weight, though gaining back now. reports that he is much weaker and needs to build strength and balance. Pt's denies falls. Pt has a FWW at home. reports that he is able to walk 50ft with FWW. Pt does not have stairs. Treatment Goals Patient/Caregiver Goals To improve strength and balance Prior Functional Status Baseline Function- ADL's Independent Baseline Function- Mobility Independent Current Functional Impairments (Reported) Functional Limitations- ADL's Assist from with ADLs Functional Limitations- Mobility/Gait Needs assist with bed mobility . Pt's reports that he is able to walk, though fatigues quickly. She reports that he takes smaller steps with R LE and demonstrates flexed posture. Pt sleeps inclined on couch secondary to feeding tube precautions. PT-OP-C Subjective Start: 11/28/22 10:27 Freq: Status: Active Protocol: Document 12/03/22 14:18 AM (Rec: 12/03/22 15:10 AM [id number]) OP-PT Subjective Patient Comments Patient Comments Pt denies soreness after last tx. Pt presents with FWW today and without w/c. PT-OP-D Balance Start: 11/28/22 10:27 Freq: Status: Active Protocol: Document 12/03/22 14:18 AM (Rec: 12/03/22 15:09 AM [id number]) Tinetti Balance Assessment Sitting Balance Sitting Balance Steady, safe Arising from Chair Ability to Arise Able, uses arms to help Attempts to Arise Able, requires >1 attempt Standing Balance Immediate Standing Balance Steady with support Standing Balance Narrow stance w/o support Nudged Response Steady Standing with Eyes Closed Steady Turning Step Pattern Turning 360 Degrees Discontinuous steps Stability Turning 360 Degrees Unsteady, grabs/staggers Sitting Down Sitting Down Uses arms or unsteady Gait and Step Initiation of Gait No hesitancy Right Foot Step Length Does pass stance foot Right Foot Step Height Does not clear floor Left Foot Step Length Does pass stance foot Left Foot Step Height Completely clears floor Step Description Step Symmetry Step length not equal Step Continuity Steps appear continuous Gait Description Path Description Straight Trunk Description No sway but posturing Walking Stance Heels together Scoring and Interpretation Tinetti Composite Score (points) 19 Interpretation of Scores At risk for falls (19-24) Tinetti Impairment Rating from Composite 20 to <40% Impaired (Score 17- Score 22) PT-OP-E Functional Tests Start: 11/28/22 10:27 Freq: Status: Active Protocol: Document 12/01/22 12:49 SP (Rec: 12/03/22 07:23 SP [id number]) Functional Tests 6 Minute Walk Test Distance 361 ft Device Used FWW Comments cued proximity FWW, increase RLE foot clearance, upright posture PT-OP-G Mobility & Gait Start: 11/28/22 10:27 Freq: Status: Active Protocol: Document 11/28/22 10:27 AM (Rec: 11/28/22 17:39 AM [id number]) OP Mobility Evaluation Bed Mobility Rolling Pt able to roll independently from side to side on tx table, though reports that he is unable to roll side to side on bed at home. Supine to and from Sit Pt able to transfer from supine <-> sit on tx table, though slow and reports low back pain. Transfers Sit to Stand CGA for STS. Occasionally requires more than 1 attempt. Use of bryce UE. Bed to Chair Transfers Pt requires cueing to square up in front of surface that he is transfering to. Car Transfers Pt almost missed car seat with transfer from w/c to car seat . CGA required OP Gait Assessment Gait Gait Assistance Required: Contact Guard Assist Distance (Feet) 210 Assistive Devices Assistive Device Gait Belt,Front Wheeled Walker Orthotic/Prosthetic Devices or Brace: No Gait Deviations General Gait Pattern Decreased Stride Length,Flexed Trunk,Narrow Based Gait Factors Limiting Gait Function Factors Limiting Gait Function Decreased Activity Tolerance, Decreased Strength,Limited Range of Motion,Pain,Poor Balance Comments Gait Comments Pt demonstrated decreased stride length when fatigued. reports that he typically has a decreased R stride compared to L, though was able to demonstrate symmetry with gait today. PT-OP-J Posture/Palpation/Skin Start: 11/28/22 10:27 Freq: Status: Active Protocol: Document 11/28/22 10:27 AM (Rec: 11/28/22 17:39 AM [id number]) Posture Evaluation Position Standing Head/C-Spine Posture Forward Head L-Spine Posture Flexed Shoulder Posture (L) Forward,(R) Forward PT-OP-K Range of Motion Start: 11/28/22 10:27 Freq: Status: Active Protocol: Document 11/28/22 10:27 AM (Rec: 11/28/22 17:39 AM [id number]) Hip Goniometric Range of Motion Hip Right Passive Comments R hamstring moderately limited Left Passive Comments L hamstring with moderate limitations PT-OP-M Strength Start: 11/28/22 10:27 Freq: Status: Active Protocol: Document 11/28/22 10:27 AM (Rec: 11/28/22 17:39 AM [id number]) Hip Strength Hip Manual Muscle Testing Right Flexion (L2) 4- Good- Extension (S1) 4- Good- Abduction 4- Good- Adduction 4- Good- Left Flexion (L2) 4- Good- Extension (S1) 4- Good- Abduction 4- Good- Adduction 4- Good- Knee Strength Knee Manual Muscle Testing Right Flexion (S2) 4- Good- Extension (L3) 4- Good- Left Flexion (S2) 4- Good- Extension (L3) 4- Good- Ankle/Foot Strength Ankle and Foot Manual Muscle Testing Right Dorsiflexion (L4) 4- Good- Plantarflexion (S1) 4- Good- Left Dorsiflexion (L4) 4- Good- Plantarflexion (S1) 4- Good- PT-OP-Q Treatments Start: 11/28/22 10:27 Freq: Status: Active Protocol: Document 12/03/22 14:18 AM (Rec: 12/03/22 14:38 AM [id number]) Cardio Equipment Recumbent Elliptical (Biodex) Duration (Minutes) 5 Resistance 6 Seat Position 10 Therapeutic Exercises Supine Exercises Abdominal marching Side bilateral Comments cues for abdominal stab BKFO Side bilateral Reps/Minutes 2x5 Comments cues for lumbopelvic stability Standing Exercises Hip abduction Side bilateral Equipment Used railing Reps/Minutes x10 Comments cue lateral trunk flexion Side step Side bilateral Equipment Used railing Reps/Minutes 2x20 ft Calf raises Standing Exercise Name x10 Side bilateral Equipment Used railing Gait Training Gait Activity Ambulation Distance/Duration 2x200 ft Treatment Focus endurance, symmetrical step length Comments Gait belt on, CGA Manual Therapy Treatment Manual Techniques Hamstring stretch Type Hamstring stretch Body Position Hooklying Reps/Duration 2x30 sec Neuro Re-Education Treatment Balance Activities Tinetti Details Comments CGA gait belt PRN PT-OP-T Assessment and Plan Start: 11/28/22 10:27 Freq: Status: Active Protocol: Document 12/03/22 14:18 AM (Rec: 12/03/22 14:38 AM [id number]) Physical Therapy Assessment Goals Tinetti Impairment Pt with score of 19 on Tinetti . Short Term Goal (STG) Pt with score of 22 on Tinetti . STG Duration 01/02/23 Alf Goal (LTG) Pt with score of 25 on Tinetti . LTG Duration 02/06/23 Strength Impairment Pt with LE strength grossly at 4-/5. Short Term Goal (STG) Pt with strength grossly at 4/ 5. STG Duration 01/02/23 Alf Goal (LTG) PT with LE strength grossly at 4+/5 LTG Duration 02/06/23 HEP Alf Goal (LTG) Pt independent with HEP. LTG Duration 02/06/23 Transfer Impairment Pt able to transfer from sit to stand with CGA and occasional cues. Short Term Goal (STG) Pt independent with transfers from sit-stand. STG Duration 01/02/23 Bindery Helper Goal (LTG) Pt able to transfer from sit- stand without use of UE from surface that is 22 inches high . LTG Duration 02/06/23 Bed mobility Impairment Pt unable to roll in bed at home or transfer from supine to sit without assist from . Short Term Goal (STG) Pt able to roll and transfer from supine-sit without assist at bed at home. STG Duration 01/02/23 Gait Impairment Pt able to walk 210 ft before need to sit secondary to fatigue. Pt able to walk 361 ft in 6 MWT. Short Term Goal (STG) Pt able to ambulate 500 ft before need to sit secondary to fatigue. STG Duration 01/02/23 Bindery Helper Goal (LTG) Pt able to ambulate 1000ft before need to sit secondary to fatigue. LTG Duration 02/06/23 Assessment Summary Assessment Pt continues to demonstrate difficulty with transition from sitting <-> supine secondary to weakness and pain . Pt required Mod A and cueing for log roll, which also increased low back pain today. Pt challenged with lumbopelvic stability with BKFO, requiring cueing and hands on ASIS to monitor rotation. Pt demonstrates stiffness at bilateral hamstrings. Pt would benefit from continued PT to improve pt's endurance, strength and balance to improve tolerance to functional tasks. Physical Therapy Plan Frequency and Duration Frequency of Treatment 2x/Week Duration of treatment (weeks) 10 Plan of Care Start Date 11/28/22 Plan of Care End Date 02/06/23 Therapeutic Interventions Therapeutic Interventions Balance Training,Coordination Training,Gait Training,Home Exercise Program,Joint Mobilizations,Manual Therapy, Neuromuscular Re-education, Patient/Caregiver Education, Self-Care/Home Management,Soft Tissue Mobilization,Taping, Therapeutic Activities, Therapeutic Exercises Modalities Cold Pack/Ice Massage,Electric Stimulation,Hot Packs, Ultrasound Next Visit Focus/Plan Next Note Type Treatment Note Next Visit Plan Continue added resistance to LE PREs and progress into higher level balance challenges.
--- NOTE | 2022-12-10 14:18 | PT.OTN ---
Current Diagnoses Other cerebral infarction due to occlusion or stenosis of small artery (12/03/22) Weakness (12/03/22) Physical Therapy Treatment Note PT-OP-A Visit Information Start: 11/28/22 10:27 Freq: Status: Active Protocol: Document 12/10/22 14:18 AM (Rec: 12/10/22 15:10 AM [id number]) Out-Patient Physical Therapy Visit Information Visit Information Visit Type Treatment Note Visit Start Time 14:20 Visit Stop Time 15:01 Total Visit Minutes 41 Visit Number 4 Number of ELEMENTARY ESL TEACHER Visits 1 Precautions Precautions fall risk, feeding tube PT-OP-B Current Condition Start: 11/28/22 10:27 Freq: Status: Active Protocol: Document 11/28/22 10:27 AM (Rec: 11/28/22 13:00 AM [id number]) Current Condition History of Current Condition History of Current Condition 82-year-old male with history of rheumatoid arthritis presenting with his 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 Pt has had multiple CVA one in June and 1 in July. Pt has mild expressive apasia and cognitive impairment. Following inpatient, pt went to SNF for 4 days, though had a heart attack, ketoacidosis, and another small stroke. Pt has trouble swallowing, therefore has a GI tube. Pt had lost a lot of weight, though gaining back now. reports that he is much weaker and needs to build strength and balance. Pt's denies falls. Pt has a FWW at home. reports that he is able to walk 50ft with FWW. Pt does not have stairs. Treatment Goals Patient/Caregiver Goals To improve strength and balance Prior Functional Status Baseline Function- ADL's Independent Baseline Function- Mobility Independent Current Functional Impairments (Reported) Functional Limitations- ADL's Assist from with ADLs Functional Limitations- Mobility/Gait Needs assist with bed mobility . Pt's reports that he is able to walk, though fatigues quickly. She reports that he takes smaller steps with R LE and demonstrates flexed posture. Pt sleeps inclined on couch secondary to feeding tube precautions. PT-OP-C Subjective Start: 11/28/22 10:27 Freq: Status: Active Protocol: Document 12/10/22 14:18 AM (Rec: 12/10/22 15:10 AM [id number]) OP-PT Subjective Patient Comments Patient Comments Pt reports that he feels that he is 9/10 tired after PT sessions. Pt presented with FWW today and ambulated to car in parking lot post tx. PT-OP-D Balance Start: 11/28/22 10:27 Freq: Status: Active Protocol: Document 12/03/22 14:18 AM (Rec: 12/03/22 15:09 AM [id number]) Tinetti Balance Assessment Sitting Balance Sitting Balance Steady, safe Arising from Chair Ability to Arise Able, uses arms to help Attempts to Arise Able, requires >1 attempt Standing Balance Immediate Standing Balance Steady with support Standing Balance Narrow stance w/o support Nudged Response Steady Standing with Eyes Closed Steady Turning Step Pattern Turning 360 Degrees Discontinuous steps Stability Turning 360 Degrees Unsteady, grabs/staggers Sitting Down Sitting Down Uses arms or unsteady Gait and Step Initiation of Gait No hesitancy Right Foot Step Length Does pass stance foot Right Foot Step Height Does not clear floor Left Foot Step Length Does pass stance foot Left Foot Step Height Completely clears floor Step Description Step Symmetry Step length not equal Step Continuity Steps appear continuous Gait Description Path Description Straight Trunk Description No sway but posturing Walking Stance Heels together Scoring and Interpretation Tinetti Composite Score (points) 19 Interpretation of Scores At risk for falls (19-24) Tinetti Impairment Rating from Composite 20 to <40% Impaired (Score 17- Score 22) PT-OP-E Functional Tests Start: 11/28/22 10:27 Freq: Status: Active Protocol: Document 12/01/22 12:49 SP (Rec: 12/03/22 07:23 SP [id number]) Functional Tests 6 Minute Walk Test Distance 361 ft Device Used FWW Comments cued proximity FWW, increase RLE foot clearance, upright posture PT-OP-G Mobility & Gait Start: 11/28/22 10:27 Freq: Status: Active Protocol: Document 11/28/22 10:27 AM (Rec: 11/28/22 17:39 AM [id number]) OP Mobility Evaluation Bed Mobility Rolling Pt able to roll independently from side to side on tx table, though reports that he is unable to roll side to side on bed at home. Supine to and from Sit Pt able to transfer from supine <-> sit on tx table, though slow and reports low back pain. Transfers Sit to Stand CGA for STS. Occasionally requires more than 1 attempt. Use of luke UE. Bed to Chair Transfers Pt requires cueing to square up in front of surface that he is transfering to. Car Transfers Pt almost missed car seat with transfer from w/c to car seat . CGA required OP Gait Assessment Gait Gait Assistance Required: Contact Guard Assist Distance (Feet) 210 Assistive Devices Assistive Device Gait Belt,Front Wheeled Walker Orthotic/Prosthetic Devices or Brace: No Gait Deviations General Gait Pattern Decreased Stride Length,Flexed Trunk,Narrow Based Gait Factors Limiting Gait Function Factors Limiting Gait Function Decreased Activity Tolerance, Decreased Strength,Limited Range of Motion,Pain,Poor Balance Comments Gait Comments Pt demonstrated decreased stride length when fatigued. reports that he typically has a decreased R stride compared to L, though was able to demonstrate symmetry with gait today. PT-OP-J Posture/Palpation/Skin Start: 11/28/22 10:27 Freq: Status: Active Protocol: Document 11/28/22 10:27 AM (Rec: 11/28/22 17:39 AM [id number]) Posture Evaluation Position Standing Head/C-Spine Posture Forward Head L-Spine Posture Flexed Shoulder Posture (L) Forward,(R) Forward PT-OP-K Range of Motion Start: 11/28/22 10:27 Freq: Status: Active Protocol: Document 11/28/22 10:27 AM (Rec: 11/28/22 17:39 AM [id number]) Hip Goniometric Range of Motion Hip Right Passive Comments R hamstring moderately limited Left Passive Comments L hamstring with moderate limitations PT-OP-M Strength Start: 11/28/22 10:27 Freq: Status: Active Protocol: Document 11/28/22 10:27 AM (Rec: 11/28/22 17:39 AM [id number]) Hip Strength Hip Manual Muscle Testing Right Flexion (L2) 4- Good- Extension (S1) 4- Good- Abduction 4- Good- Adduction 4- Good- Left Flexion (L2) 4- Good- Extension (S1) 4- Good- Abduction 4- Good- Adduction 4- Good- Knee Strength Knee Manual Muscle Testing Right Flexion (S2) 4- Good- Extension (L3) 4- Good- Left Flexion (S2) 4- Good- Extension (L3) 4- Good- Ankle/Foot Strength Ankle and Foot Manual Muscle Testing Right Dorsiflexion (L4) 4- Good- Plantarflexion (S1) 4- Good- Left Dorsiflexion (L4) 4- Good- Plantarflexion (S1) 4- Good- PT-OP-Q Treatments Start: 11/28/22 10:27 Freq: Status: Active Protocol: Document 12/10/22 14:18 AM (Rec: 12/10/22 15:10 AM [id number]) Cardio Equipment Recumbent Elliptical (Biodex) Duration (Minutes) 6 Resistance 6 Seat Position 10 Therapeutic Exercises Sitting Exercises STS Equipment Used beige chair with arm rests, blue foam on seat Reps/Minutes 2x5 Comments cued for slow descend Standing Exercises Step-up Side bilateral Equipment Used 4'' step, // bars Reps/Minutes x5 ea LE Comments Luke UE use at // bars, Mod use Hip extension Resistance 2# Reps/Minutes x10 Comments cues for posture and knee extension Hip abduction Side bilateral Equipment Used railing Reps/Minutes x10 Comments cue lateral trunk flexion, decreased speed and knee extension Calf raises Standing Exercise Name x10 Side bilateral Equipment Used railing step taps Equipment Used 4'' step tap at // bars Reps/Minutes 3x5 Comments luke UE->unilateral UE -> no UE marching Standing Exercise Name initiated in PT 12/01 Side bilateral Resistance 2# leg wt Equipment Used in // bars Reps/Minutes x10 Comments cues for posture Neuro Re-Education Treatment Balance Activities NBOS Details EC on stable surface, head turns on blue foam stride stance Details looking forward, head turns Surface floor Equipment // bars Reps/Duration 2min Comments cued for posture, core and glut engagement, slow head turns looking at items in room help stabilize. PT-OP-T Assessment and Plan Start: 11/28/22 10:27 Freq: Status: Active Protocol: Document 12/10/22 14:18 AM (Rec: 12/10/22 15:10 AM [id number]) Physical Therapy Assessment Goals Tinetti Impairment Pt with score of 19 on Tinetti . Short Term Goal (STG) Pt with score of 22 on Tinetti . STG Duration 01/02/23 Long-Term Goal (LTG) Pt with score of 25 on Tinetti . LTG Duration 02/06/23 Strength Impairment Pt with LE strength grossly at 4-/5. Short Term Goal (STG) Pt with strength grossly at 4/ 5. STG Duration 01/02/23 Fish Roe Technician Goal (LTG) PT with LE strength grossly at 4+/5 LTG Duration 02/06/23 HEP Fish Roe Technician Goal (LTG) Pt independent with HEP. LTG Duration 02/06/23 Transfer Impairment Pt able to transfer from sit to stand with CGA and occasional cues. Short Term Goal (STG) Pt independent with transfers from sit-stand. STG Duration 01/02/23 Long-Term Goal (LTG) Pt able to transfer from sit- stand without use of UE from surface that is 22 inches high . LTG Duration 02/06/23 Bed mobility Impairment Pt unable to roll in bed at home or transfer from supine to sit without assist from . Short Term Goal (STG) Pt able to roll and transfer from supine-sit without assist at bed at home. STG Duration 01/02/23 Gait Impairment Pt able to walk 210 ft before need to sit secondary to fatigue. Pt able to walk 361 ft in 6 MWT. Short Term Goal (STG) Pt able to ambulate 500 ft before need to sit secondary to fatigue. STG Duration 01/02/23 Fish Roe Technician Goal (LTG) Pt able to ambulate 1000ft before need to sit secondary to fatigue. LTG Duration 02/06/23 Assessment Summary Assessment PT encouraged increased rest breaks today secondary to reported elevated levels of fatigue post-tx. Pt able to do step-taps without UE assist. Pt with moderate use of UE at // bars with step-ups. Pt would benefit from continued PT to progress endurance, strength and balance as tolerated. Physical Therapy Plan Frequency and Duration Frequency of Treatment 2x/Week Duration of treatment (weeks) 10 Plan of Care Start Date 11/28/22 Plan of Care End Date 02/06/23 Therapeutic Interventions Therapeutic Interventions Balance Training,Coordination Training,Gait Training,Home Exercise Program,Joint Mobilizations,Manual Therapy, Neuromuscular Re-education, Patient/Caregiver Education, Self-Care/Home Management,Soft Tissue Mobilization,Taping, Therapeutic Activities, Therapeutic Exercises Modalities Cold Pack/Ice Massage,Electric Stimulation,Hot Packs, Ultrasound Next Visit Focus/Plan Next Note Type Treatment Note Next Visit Plan Continue added resistance to LE PREs and progress into higher level balance challenges.
--- NOTE | 2022-12-12 13:31 | PT.OTN ---
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 Pt has had multiple CVA one in June and 1 in July. Pt has mild expressive apasia and cognitive impairment. Following inpatient, pt went to SNF for 4 days, though had a heart attack, ketoacidosis, and another small stroke. Pt has trouble swallowing, therefore has a GI tube. Pt had lost a lot of weight, though gaining back now. reports that he is much weaker and needs to build strength and balance. Pt's denies falls. Pt has a FWW at home. reports that he is able to walk 50ft with FWW. Pt does not have stairs. Treatment Goals Patient/Caregiver Goals To improve strength and balance Prior Functional Status Baseline Function- ADL's Independent Baseline Function- Mobility Independent Current Functional Impairments (Reported) Functional Limitations- ADL's Assist from with ADLs Functional Limitations- Mobility/Gait Needs assist with bed mobility . Pt's reports that he is able to walk, though fatigues quickly. She reports that he takes smaller steps with R LE and demonstrates flexed posture. Pt sleeps inclined on couch secondary to feeding tube precautions. PT-OP-C Subjective Start: 11/28/22 10:27 Freq: Status: Active Protocol: Document 12/12/22 13:31 AM (Rec: 12/12/22 14:19 AM [id number]) OP-PT Subjective Patient Comments Patient Comments Pt reports that he was not as fatigued after last tx session . PT-OP-D Balance Start: 11/28/22 10:27 Freq: Status: Active Protocol: Document 12/03/22 14:18 AM (Rec: 12/03/22 15:09 AM [id number]) Tinetti Balance Assessment Sitting Balance Sitting Balance Steady, safe Arising from Chair Ability to Arise Able, uses arms to help Attempts to Arise Able, requires >1 attempt Standing Balance Immediate Standing Balance Steady with support Standing Balance Narrow stance w/o support Nudged Response Steady Standing with Eyes Closed Steady Turning Step Pattern Turning 360 Degrees Discontinuous steps Stability Turning 360 Degrees Unsteady, grabs/staggers Sitting Down Sitting Down Uses arms or unsteady Gait and Step Initiation of Gait No hesitancy Right Foot Step Length Does pass stance foot Right Foot Step Height Does not clear floor Left Foot Step Length Does pass stance foot Left Foot Step Height Completely clears floor Step Description Step Symmetry Step length not equal Step Continuity Steps appear continuous Gait Description Path Description Straight Trunk Description No sway but posturing Walking Stance Heels together Scoring and Interpretation Tinetti Composite Score (points) 19 Interpretation of Scores At risk for falls (19-24) Tinetti Impairment Rating from Composite 20 to <40% Impaired (Score 17- Score 22) PT-OP-E Functional Tests Start: 11/28/22 10:27 Freq: Status: Active Protocol: Document 12/01/22 12:49 SP (Rec: 12/03/22 07:23 SP [id number]) Functional Tests 6 Minute Walk Test Distance 361 ft Device Used FWW Comments cued proximity FWW, increase RLE foot clearance, upright posture PT-OP-G Mobility & Gait Start: 11/28/22 10:27 Freq: Status: Active Protocol: Document 11/28/22 10:27 AM (Rec: 11/28/22 17:39 AM [id number]) OP Mobility Evaluation Bed Mobility Rolling Pt able to roll independently from side to side on tx table, though reports that he is unable to roll side to side on bed at home. Supine to and from Sit Pt able to transfer from supine <-> sit on tx table, though slow and reports low back pain. Transfers Sit to Stand CGA for STS. Occasionally requires more than 1 attempt. Use of bryce UE. Bed to Chair Transfers Pt requires cueing to square up in front of surface that he is transfering to. Car Transfers Pt almost missed car seat with transfer from w/c to car seat . CGA required OP Gait Assessment Gait Gait Assistance Required: Contact Guard Assist Distance (Feet) 210 Assistive Devices Assistive Device Gait Belt,Front Wheeled Walker Orthotic/Prosthetic Devices or Brace: No Gait Deviations General Gait Pattern Decreased Stride Length,Flexed Trunk,Narrow Based Gait Factors Limiting Gait Function Factors Limiting Gait Function Decreased Activity Tolerance, Decreased Strength,Limited Range of Motion,Pain,Poor Balance Comments Gait Comments Pt demonstrated decreased stride length when fatigued. reports that he typically has a decreased R stride compared to L, though was able to demonstrate symmetry with gait today. PT-OP-J Posture/Palpation/Skin Start: 11/28/22 10:27 Freq: Status: Active Protocol: Document 11/28/22 10:27 AM (Rec: 11/28/22 17:39 AM [id number]) Posture Evaluation Position Standing Head/C-Spine Posture Forward Head L-Spine Posture Flexed Shoulder Posture (L) Forward,(R) Forward PT-OP-K Range of Motion Start: 11/28/22 10:27 Freq: Status: Active Protocol: Document 11/28/22 10:27 AM (Rec: 11/28/22 17:39 AM [id number]) Hip Goniometric Range of Motion Hip Right Passive Comments R hamstring moderately limited Left Passive Comments L hamstring with moderate limitations PT-OP-M Strength Start: 11/28/22 10:27 Freq: Status: Active Protocol: Document 11/28/22 10:27 AM (Rec: 11/28/22 17:39 AM [id number]) Hip Strength Hip Manual Muscle Testing Right Flexion (L2) 4- Good- Extension (S1) 4- Good- Abduction 4- Good- Adduction 4- Good- Left Flexion (L2) 4- Good- Extension (S1) 4- Good- Abduction 4- Good- Adduction 4- Good- Knee Strength Knee Manual Muscle Testing Right Flexion (S2) 4- Good- Extension (L3) 4- Good- Left Flexion (S2) 4- Good- Extension (L3) 4- Good- Ankle/Foot Strength Ankle and Foot Manual Muscle Testing Right Dorsiflexion (L4) 4- Good- Plantarflexion (S1) 4- Good- Left Dorsiflexion (L4) 4- Good- Plantarflexion (S1) 4- Good- PT-OP-Q Treatments Start: 11/28/22 10:27 Freq: Status: Active Protocol: Document 12/12/22 13:31 AM (Rec: 12/12/22 14:19 AM [id number]) Cardio Equipment Recumbent Elliptical (Biodex) Duration (Minutes) 7 Resistance 7 Seat Position 11 Gym Equipment Shuttle Recovery Unilateral squat Details manual cueing for R LE to decrease valgus and cue for TKE at knee Resistance 37# (1 teal) Shuttle Recovery Platform Stable Reps/Time x30 sec Bilateral squat Details cues for TKE, decreased speed, decrease R knee valgus Resistance 62-75 (all teal) Shuttle Recovery Platform Stable Reps/Time 2x1 min Therapeutic Exercises Standing Exercises Side step Side bilateral Equipment Used railing Reps/Minutes 2x20 ft Calf raises Standing Exercise Name x15 Side bilateral Equipment Used railing Gait Training Gait Activity Ambulation Treatment Focus endurance, symmetrical step length, posture Comments cues for posture to decrease trunk flexion PT-OP-T Assessment and Plan Start: 11/28/22 10:27 Freq: Status: Active Protocol: Document 12/12/22 13:31 AM (Rec: 12/12/22 14:19 AM [id number]) Physical Therapy Assessment Goals Tinetti Impairment Pt with score of 19 on Tinetti . Short Term Goal (STG) Pt with score of 22 on Tinetti . STG Duration 01/02/23 [facility] Goal (LTG) Pt with score of 25 on Tinetti . LTG Duration 02/06/23 Strength Impairment Pt with LE strength grossly at 4-/5. Short Term Goal (STG) Pt with strength grossly at 4/ 5. STG Duration 01/02/23 Flame Cutting Supervisor Goal (LTG) PT with LE strength grossly at 4+/5 LTG Duration 02/06/23 HEP Flame Cutting Supervisor Goal (LTG) Pt independent with HEP. LTG Duration 02/06/23 Transfer Impairment Pt able to transfer from sit to stand with CGA and occasional cues. Short Term Goal (STG) Pt independent with transfers from sit-stand. STG Duration 01/02/23 Flame Cutting Supervisor Goal (LTG) Pt able to transfer from sit- stand without use of UE from surface that is 22 inches high . LTG Duration 02/06/23 Bed mobility Impairment Pt unable to roll in bed at home or transfer from supine to sit without assist from . Short Term Goal (STG) Pt able to roll and transfer from supine-sit without assist at bed at home. STG Duration 01/02/23 Gait Impairment Pt able to walk 210 ft before need to sit secondary to fatigue. Pt able to walk 361 ft in 6 MWT. Short Term Goal (STG) Pt able to ambulate 500 ft before need to sit secondary to fatigue. STG Duration 01/02/23 Flame Cutting Supervisor Goal (LTG) Pt able to ambulate 1000ft before need to sit secondary to fatigue. LTG Duration 02/06/23 Assessment Summary Assessment Pt tolerated PRE well. Pt requires cueing for posture and to keep FWW closer to him during ambulation, particularly as he fatigues. Pt demonstrates tendency towards R knee valgus with shuttle recovery bilateral and unilateral squats, which improved with frequent cueing. Physical Therapy Plan Frequency and Duration Frequency of Treatment 2x/Week Duration of treatment (weeks) 10 Plan of Care Start Date 11/28/22 Plan of Care End Date 02/06/23 Therapeutic Interventions Therapeutic Interventions Balance Training,Coordination Training,Gait Training,Home Exercise Program,Joint Mobilizations,Manual Therapy, Neuromuscular Re-education, Patient/Caregiver Education, Self-Care/Home Management,Soft Tissue Mobilization,Taping, Therapeutic Activities, Therapeutic Exercises Modalities Cold Pack/Ice Massage,Electric Stimulation,Hot Packs, Ultrasound Next Visit Focus/Plan Next Note Type Treatment Note Next Visit Plan Continue added resistance to LE PREs and progress into higher level balance challenges.
--- NOTE | 2022-12-17 11:30 | PT.OTN ---
Current Diagnoses Other cerebral infarction due to occlusion or stenosis of small artery (12/17/22) Weakness (12/17/22) Physical Therapy Treatment Note PT-OP-A Visit Information Start: 11/28/22 10:27 Freq: Status: Active Protocol: Document 12/17/22 11:30 AM (Rec: 12/17/22 13:27 AM [id number]) Out-Patient Physical Therapy Visit Information Visit Information Visit Type Treatment Note Visit Start Time 11:30 Visit Stop Time 12:17 Total Visit Minutes 47 Visit Number 6 PT-OP-B Current Condition Start: 11/28/22 10:27 Freq: Status: Active Protocol: Document 11/28/22 10:27 AM (Rec: 11/28/22 13:00 AM [id number]) Current Condition History of Current Condition History of Current Condition 82-year-old male with history of rheumatoid arthritis presenting with his 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 Pt has had multiple CVA one in June and 1 in July. Pt has mild expressive apasia and cognitive impairment. Following inpatient, pt went to SNF for 4 days, though had a heart attack, ketoacidosis, and another small stroke. Pt has trouble swallowing, therefore has a GI tube. Pt had lost a lot of weight, though gaining back now. reports that he is much weaker and needs to build strength and balance. Pt's denies falls. Pt has a FWW at home. reports that he is able to walk 50ft with FWW. Pt does not have stairs. Treatment Goals Patient/Caregiver Goals To improve strength and balance Prior Functional Status Baseline Function- ADL's Independent Baseline Function- Mobility Independent Current Functional Impairments (Reported) Functional Limitations- ADL's Assist from with ADLs Functional Limitations- Mobility/Gait Needs assist with bed mobility . Pt's reports that he is able to walk, though fatigues quickly. She reports that he takes smaller steps with R LE and demonstrates flexed posture. Pt sleeps inclined on couch secondary to feeding tube precautions. PT-OP-C Subjective Start: 11/28/22 10:27 Freq: Status: Active Protocol: Document 12/17/22 11:30 AM (Rec: 12/17/22 13:27 AM [id number]) OP-PT Subjective Patient Comments Patient Comments reports that Kendall is having a good day today. PT-OP-D Balance Start: 11/28/22 10:27 Freq: Status: Active Protocol: Document 12/03/22 14:18 AM (Rec: 12/03/22 15:09 AM [id number]) Tinetti Balance Assessment Sitting Balance Sitting Balance Steady, safe Arising from Chair Ability to Arise Able, uses arms to help Attempts to Arise Able, requires >1 attempt Standing Balance Immediate Standing Balance Steady with support Standing Balance Narrow stance w/o support Nudged Response Steady Standing with Eyes Closed Steady Turning Step Pattern Turning 360 Degrees Discontinuous steps Stability Turning 360 Degrees Unsteady, grabs/staggers Sitting Down Sitting Down Uses arms or unsteady Gait and Step Initiation of Gait No hesitancy Right Foot Step Length Does pass stance foot Right Foot Step Height Does not clear floor Left Foot Step Length Does pass stance foot Left Foot Step Height Completely clears floor Step Description Step Symmetry Step length not equal Step Continuity Steps appear continuous Gait Description Path Description Straight Trunk Description No sway but posturing Walking Stance Heels together Scoring and Interpretation Tinetti Composite Score (points) 19 Interpretation of Scores At risk for falls (19-24) Tinetti Impairment Rating from Composite 20 to <40% Impaired (Score 17- Score 22) PT-OP-E Functional Tests Start: 11/28/22 10:27 Freq: Status: Active Protocol: Document 12/01/22 12:49 SP (Rec: 12/03/22 07:23 SP [id number]) Functional Tests 6 Minute Walk Test Distance 361 ft Device Used FWW Comments cued proximity FWW, increase RLE foot clearance, upright posture PT-OP-G Mobility & Gait Start: 11/28/22 10:27 Freq: Status: Active Protocol: Document 11/28/22 10:27 AM (Rec: 11/28/22 17:39 AM [id number]) OP Mobility Evaluation Bed Mobility Rolling Pt able to roll independently from side to side on tx table, though reports that he is unable to roll side to side on bed at home. Supine to and from Sit Pt able to transfer from supine <-> sit on tx table, though slow and reports low back pain. Transfers Sit to Stand CGA for STS. Occasionally requires more than 1 attempt. Use of bryce UE. Bed to Chair Transfers Pt requires cueing to square up in front of surface that he is transfering to. Car Transfers Pt almost missed car seat with transfer from w/c to car seat . CGA required OP Gait Assessment Gait Gait Assistance Required: Contact Guard Assist Distance (Feet) 210 Assistive Devices Assistive Device Gait Belt,Front Wheeled Walker Orthotic/Prosthetic Devices or Brace: No Gait Deviations General Gait Pattern Decreased Stride Length,Flexed Trunk,Narrow Based Gait Factors Limiting Gait Function Factors Limiting Gait Function Decreased Activity Tolerance, Decreased Strength,Limited Range of Motion,Pain,Poor Balance Comments Gait Comments Pt demonstrated decreased stride length when fatigued. reports that he typically has a decreased R stride compared to L, though was able to demonstrate symmetry with gait today. PT-OP-J Posture/Palpation/Skin Start: 11/28/22 10:27 Freq: Status: Active Protocol: Document 11/28/22 10:27 AM (Rec: 11/28/22 17:39 AM [id number]) Posture Evaluation Position Standing Head/C-Spine Posture Forward Head L-Spine Posture Flexed Shoulder Posture (L) Forward,(R) Forward PT-OP-K Range of Motion Start: 11/28/22 10:27 Freq: Status: Active Protocol: Document 11/28/22 10:27 AM (Rec: 11/28/22 17:39 AM [id number]) Hip Goniometric Range of Motion Hip Right Passive Comments R hamstring moderately limited Left Passive Comments L hamstring with moderate limitations PT-OP-M Strength Start: 11/28/22 10:27 Freq: Status: Active Protocol: Document 11/28/22 10:27 AM (Rec: 11/28/22 17:39 AM [id number]) Hip Strength Hip Manual Muscle Testing Right Flexion (L2) 4- Good- Extension (S1) 4- Good- Abduction 4- Good- Adduction 4- Good- Left Flexion (L2) 4- Good- Extension (S1) 4- Good- Abduction 4- Good- Adduction 4- Good- Knee Strength Knee Manual Muscle Testing Right Flexion (S2) 4- Good- Extension (L3) 4- Good- Left Flexion (S2) 4- Good- Extension (L3) 4- Good- Ankle/Foot Strength Ankle and Foot Manual Muscle Testing Right Dorsiflexion (L4) 4- Good- Plantarflexion (S1) 4- Good- Left Dorsiflexion (L4) 4- Good- Plantarflexion (S1) 4- Good- PT-OP-Q Treatments Start: 11/28/22 10:27 Freq: Status: Active Protocol: Document 12/17/22 11:30 AM (Rec: 12/17/22 13:27 AM [id number]) Cardio Equipment Recumbent Stepper (Sci-Fit) Duration (Minutes) 5 Resistance 4.5 Seat Position 11 Gym Equipment Shuttle Recovery Unilateral squat Details manual cueing for R LE to decrease valgus and cue for TKE at knee Resistance 37# (1 teal) Shuttle Recovery Platform Stable Reps/Time 2x30 sec Bilateral squat Details cues for TKE, decreased speed, decrease R knee valgus Resistance 75 (all teal) Shuttle Recovery Platform Stable Reps/Time 2x30 sec Therapeutic Exercises Standing Exercises step taps Equipment Used 4'' step tap at // bars Reps/Minutes x10 Comments Unilateral UE, unable to do no UE secondary to fatigue Gait Training Gait Activity Ambulation Treatment Focus endurance, symmetrical step length, posture Comments cues for posture to decrease trunk flexion PT-OP-T Assessment and Plan Start: 11/28/22 10:27 Freq: Status: Active Protocol: Document 12/17/22 11:30 AM (Rec: 12/17/22 13:27 AM [id number]) Physical Therapy Assessment Goals Tinetti Impairment Pt with score of 19 on Tinetti . Short Term Goal (STG) Pt with score of 22 on Tinetti . STG Duration 01/02/23 Nursing Home Goal (LTG) Pt with score of 25 on Tinetti . LTG Duration 02/06/23 Strength Impairment Pt with LE strength grossly at 4-/5. Short Term Goal (STG) Pt with strength grossly at 4/ 5. STG Duration 01/02/23 Nursing Home Goal (LTG) PT with LE strength grossly at 4+/5 LTG Duration 02/06/23 HEP Nursing Home Goal (LTG) Pt independent with HEP. LTG Duration 02/06/23 Transfer Impairment Pt able to transfer from sit to stand with CGA and occasional cues. Short Term Goal (STG) Pt independent with transfers from sit-stand. STG Duration 01/02/23 Land Manager Goal (LTG) Pt able to transfer from sit- stand without use of UE from surface that is 22 inches high . LTG Duration 02/06/23 Bed mobility Impairment Pt unable to roll in bed at home or transfer from supine to sit without assist from . Short Term Goal (STG) Pt able to roll and transfer from supine-sit without assist at bed at home. STG Duration 01/02/23 Gait Impairment Pt able to walk 210 ft before need to sit secondary to fatigue. Pt able to walk 361 ft in 6 MWT. Short Term Goal (STG) Pt able to ambulate 500 ft before need to sit secondary to fatigue. STG Duration 01/02/23 Nursing Home Goal (LTG) Pt able to ambulate 1000ft before need to sit secondary to fatigue. LTG Duration 02/06/23 Assessment Summary Assessment Pt tolerated PRE well today. Pt able to ambulate 320 ft before need for rest break, though does require cueing to be close to FWW and for posture. Pt requires continued manual cueing to decrease knee valgus on R LE. Pt with increased difficulty with step taps without UE support secondary to fatigue at end of tx session. Pt would benefit from continued PT to progress functional strength and mobility as tolerated. Physical Therapy Plan Frequency and Duration Frequency of Treatment 2x/Week Duration of treatment (weeks) 10 Plan of Care Start Date 11/28/22 Plan of Care End Date 02/06/23 Therapeutic Interventions Therapeutic Interventions Balance Training,Coordination Training,Gait Training,Home Exercise Program,Joint Mobilizations,Manual Therapy, Neuromuscular Re-education, Patient/Caregiver Education, Self-Care/Home Management,Soft Tissue Mobilization,Taping, Therapeutic Activities, Therapeutic Exercises Modalities Cold Pack/Ice Massage,Electric Stimulation,Hot Packs, Ultrasound Next Visit Focus/Plan Next Note Type Treatment Note Next Visit Plan Continue added resistance to LE PREs and progress into higher level balance challenges.
--- NOTE | 2022-12-19 14:15 | PT.OTN ---
Current Diagnoses Other cerebral infarction due to occlusion or stenosis of small artery (12/19/22) Weakness (12/19/22) Physical Therapy Treatment Note PT-OP-A Visit Information Start: 11/28/22 10:27 Freq: Status: Active Protocol: Document 12/19/22 13:34 SP (Rec: 12/19/22 15:31 SP [id number]) Out-Patient Physical Therapy Visit Information Visit Information Visit Type Treatment Note Visit Note 2 family members attended therapy session, gave good feedback how pt doing at home. Visit Start Time 13:34 Visit Stop Time 14:15 Total Visit Minutes 41 Visit Number 7 Number of [employer] Visits 1 Evaluation Information Evaluation Date 11/28/22 Precautions Precautions *Fall risk *Feeding tube (gait belt at chest above tubing). *Caution thin liquids, sips water ok (12/19/22). PT-OP-B Current Condition Start: 11/28/22 10:27 Freq: Status: Active Protocol: Document 11/28/22 10:27 AM (Rec: 11/28/22 13:00 AM [id number]) Current Condition History of Current Condition History of Current Condition 82-year-old male with history of rheumatoid arthritis presenting with his 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 Pt has had multiple CVA one in June and 1 in July. Pt has mild expressive apasia and cognitive impairment. Following inpatient, pt went to SNF for 4 days, though had a heart attack, ketoacidosis, and another small stroke. Pt has trouble swallowing, therefore has a GI tube. Pt had lost a lot of weight, though gaining back now. reports that he is much weaker and needs to build strength and balance. Pt's denies falls. Pt has a FWW at home. reports that he is able to walk 50ft with FWW. Pt does not have stairs. Treatment Goals Patient/Caregiver Goals To improve strength and balance Prior Functional Status Baseline Function- ADL's Independent Baseline Function- Mobility Independent Current Functional Impairments (Reported) Functional Limitations- ADL's Assist from with ADLs Functional Limitations- Mobility/Gait Needs assist with bed mobility . Pt's reports that he is able to walk, though fatigues quickly. She reports that he takes smaller steps with R LE and demonstrates flexed posture. Pt sleeps inclined on couch secondary to feeding tube precautions. PT-OP-C Subjective Start: 11/28/22 10:27 Freq: Status: Active Protocol: Document 12/19/22 13:34 SP (Rec: 12/19/22 15:31 SP [id number]) OP-PT Subjective Patient Comments Patient Comments Pt reports doing ok, was tired after but it didn't affect him getting around. Family members: reported wanted to get HEP can help at home and progress walk more with trek poles in PT to get better to use at home with him . They ordered forearm 4WW in mail (not upright), will bring in when arrives to fit to pt and practice so can help pt use outdoors safely. PT-OP-D Balance Start: 11/28/22 10:27 Freq: Status: Active Protocol: Document 12/03/22 14:18 AM (Rec: 12/03/22 15:09 AM [id number]) Tinetti Balance Assessment Sitting Balance Sitting Balance Steady, safe Arising from Chair Ability to Arise Able, uses arms to help Attempts to Arise Able, requires >1 attempt Standing Balance Immediate Standing Balance Steady with support Standing Balance Narrow stance w/o support Nudged Response Steady Standing with Eyes Closed Steady Turning Step Pattern Turning 360 Degrees Discontinuous steps Stability Turning 360 Degrees Unsteady, grabs/staggers Sitting Down Sitting Down Uses arms or unsteady Gait and Step Initiation of Gait No hesitancy Right Foot Step Length Does pass stance foot Right Foot Step Height Does not clear floor Left Foot Step Length Does pass stance foot Left Foot Step Height Completely clears floor Step Description Step Symmetry Step length not equal Step Continuity Steps appear continuous Gait Description Path Description Straight Trunk Description No sway but posturing Walking Stance Heels together Scoring and Interpretation Tinetti Composite Score (points) 19 Interpretation of Scores At risk for falls (19-24) Tinetti Impairment Rating from Composite 20 to <40% Impaired (Score 17- Score 22) PT-OP-E Functional Tests Start: 11/28/22 10:27 Freq: Status: Active Protocol: Document 12/01/22 12:49 SP (Rec: 12/03/22 07:23 SP [id number]) Functional Tests 6 Minute Walk Test Distance 361 ft Device Used FWW Comments cued proximity FWW, increase RLE foot clearance, upright posture PT-OP-G Mobility & Gait Start: 11/28/22 10:27 Freq: Status: Active Protocol: Document 11/28/22 10:27 AM (Rec: 11/28/22 17:39 AM [id number]) OP Mobility Evaluation Bed Mobility Rolling Pt able to roll independently from side to side on tx table, though reports that he is unable to roll side to side on bed at home. Supine to and from Sit Pt able to transfer from supine <-> sit on tx table, though slow and reports low back pain. Transfers Sit to Stand CGA for STS. Occasionally requires more than 1 attempt. Use of bryce UE. Bed to Chair Transfers Pt requires cueing to square up in front of surface that he is transfering to. Car Transfers Pt almost missed car seat with transfer from w/c to car seat . CGA required OP Gait Assessment Gait Gait Assistance Required: Contact Guard Assist Distance (Feet) 210 Assistive Devices Assistive Device Gait Belt,Front Wheeled Walker Orthotic/Prosthetic Devices or Brace: No Gait Deviations General Gait Pattern Decreased Stride Length,Flexed Trunk,Narrow Based Gait Factors Limiting Gait Function Factors Limiting Gait Function Decreased Activity Tolerance, Decreased Strength,Limited Range of Motion,Pain,Poor Balance Comments Gait Comments Pt demonstrated decreased stride length when fatigued. reports that he typically has a decreased R stride compared to L, though was able to demonstrate symmetry with gait today. PT-OP-J Posture/Palpation/Skin Start: 11/28/22 10:27 Freq: Status: Active Protocol: Document 11/28/22 10:27 AM (Rec: 11/28/22 17:39 AM [id number]) Posture Evaluation Position Standing Head/C-Spine Posture Forward Head L-Spine Posture Flexed Shoulder Posture (L) Forward,(R) Forward PT-OP-K Range of Motion Start: 11/28/22 10:27 Freq: Status: Active Protocol: Document 11/28/22 10:27 AM (Rec: 11/28/22 17:39 AM [id number]) Hip Goniometric Range of Motion Hip Right Passive Comments R hamstring moderately limited Left Passive Comments L hamstring with moderate limitations PT-OP-M Strength Start: 11/28/22 10:27 Freq: Status: Active Protocol: Document 11/28/22 10:27 AM (Rec: 11/28/22 17:39 AM [id number]) Hip Strength Hip Manual Muscle Testing Right Flexion (L2) 4- Good- Extension (S1) 4- Good- Abduction 4- Good- Adduction 4- Good- Left Flexion (L2) 4- Good- Extension (S1) 4- Good- Abduction 4- Good- Adduction 4- Good- Knee Strength Knee Manual Muscle Testing Right Flexion (S2) 4- Good- Extension (L3) 4- Good- Left Flexion (S2) 4- Good- Extension (L3) 4- Good- Ankle/Foot Strength Ankle and Foot Manual Muscle Testing Right Dorsiflexion (L4) 4- Good- Plantarflexion (S1) 4- Good- Left Dorsiflexion (L4) 4- Good- Plantarflexion (S1) 4- Good- PT-OP-Q Treatments Start: 11/28/22 10:27 Freq: Status: Active Protocol: Document 12/19/22 13:34 SP (Rec: 12/19/22 15:31 SP [id number]) Cardio Equipment Recumbent Stepper (Sci-Fit) Duration (Minutes) 5 Resistance 4.5 Seat Position 11 Other BUEs/BLEs Therapeutic Exercises Standing Exercises Hip extension Standing Exercise Name added to HEP- provided Resistance AROM Equipment Used BUE on //bar Reps/Minutes 2x10 LLE, 2x5 RLE Comments cue elevate trunk, TKE & glut fac Hip abduction Standing Exercise Name added to HEP- provided HO Side bilateral Resistance AROM Equipment Used BUE on //bar Reps/Minutes 2x10 LLE, 2x5 RLE Comments cue elevate trunk, TKE & glut fac Side step Side bilateral Equipment Used BUE> 1 UE on //bar Reps/Minutes 2x20 ft Comments cued elevated trunk posture, each foot clearance Calf raises Standing Exercise Name added to HEP- provided HO Side bilateral Equipment Used BUE on rail Reps/Minutes 2x10 Comments cue elevate trunk (head to ceiling), TKE & glut fac step taps Resistance 1-2 UE on //bars Equipment Used 6'' step taps, BUE support on // bars Reps/Minutes x10 Comments cued elevated trunk posture, TKE stance LE Gait Training Gait Activity trek poles Description Gait in gym trial for progression future use home. Device Used B trek poles Level of Assistance 25%A through gait belt Distance/Duration 16 ft, 75 ft Treatment Focus sequencing B trek poles/BUE 2pt gait, upright posture, TKE /Glut fac/stab Comments intermittent cues upright posture 3 brief stops rest & correct, advance R>L trek pole more further. CGA-5%A initially, 25%A as distance progressed. Ambulation Device Used FWW Level of Assistance close SBA Surface carpet/tile Distance/Duration 100 ft Treatment Focus endurance, symmetrical step length, posture Comments cued proximity to back legs FWW, foot clearance, tall posture Neuro Re-Education Treatment Balance Activities rocker board Details future tx Equipment //bars Self-Care/Home Management Treatment Education Caregiver Education Family and pt education on cuing and SBA/CGA support during standing ther ex feel comfortable providing to pt. Discussed use of FWW for primary mode transportation safe with LE weakness and lower endurance at this time. WIll work more with trek poles in PT as tolerated. Future trng with forearm 4WW when arrived. Other Education Elevated FWW 1 knotch end tx to assist pt with more upright posturing with cues proximity to FWW back legs. Ed to family and pt if hard to keep upright posture and notice shouders elevating toward neck then lower FWW back down 1. PT-OP-T Assessment and Plan Start: 11/28/22 10:27 Freq: Status: Active Protocol: Document 12/19/22 13:34 SP (Rec: 12/19/22 15:31 SP [id number]) Physical Therapy Assessment Goals Tinetti Impairment Pt with score of 19 on Tinetti . Short Term Goal (STG) Pt with score of 22 on Tinetti . STG Duration 01/02/23 Gas Welding Equipment Mechanic Goal (LTG) Pt with score of 25 on Tinetti . LTG Duration 02/06/23 Strength Impairment Pt with LE strength grossly at 4-/5. Short Term Goal (STG) Pt with strength grossly at 4/ 5. STG Duration 01/02/23 Gas Welding Equipment Mechanic Goal (LTG) PT with LE strength grossly at 4+/5 LTG Duration 02/06/23 HEP Gas Welding Equipment Mechanic Goal (LTG) Pt independent with HEP. LTG Duration 02/06/23 Transfer Impairment Pt able to transfer from sit to stand with CGA and occasional cues. Short Term Goal (STG) Pt independent with transfers from sit-stand. STG Duration 01/02/23 Senior Care Goal (LTG) Pt able to transfer from sit- stand without use of UE from surface that is 22 inches high . LTG Duration 02/06/23 Bed mobility Impairment Pt unable to roll in bed at home or transfer from supine to sit without assist from . Short Term Goal (STG) Pt able to roll and transfer from supine-sit without assist at bed at home. STG Duration 01/02/23 Gait Impairment Pt able to walk 210 ft before need to sit secondary to fatigue. Pt able to walk 361 ft in 6 MWT. Short Term Goal (STG) Pt able to ambulate 500 ft before need to sit secondary to fatigue. 12/19/22: progressed 100ft c/ fww close SBA, 16, 75 ft c/ trekpoles Min A. STG Duration 01/02/23 progressing 12/19/22 Senior Care Goal (LTG) Pt able to ambulate 1000ft before need to sit secondary to fatigue. LTG Duration 02/06/23 Assessment Summary Assessment Pt tolerated bike and standing activities well. Required rest breaks between activities for tiring recovery. Cues for proximity to Fww and upright posturing gait to gym beginning<> waiting room end tx. Was able to walk after bike 75 ft using B trek poles Min A for trunk stability lateral/upright, intermittent cues for posturing, pole advancement further increased support as distance progressed . Best if gait beginning of tx before cardio. Improves self upright posturing and TKEf corrections with cues during ther ex. Reviewed standing PREs and added for home, family there to support him and give cues posture/TKE for stability with BUE support success. Physical Therapy Plan Frequency and Duration Frequency of Treatment 2x/Week Duration of treatment (weeks) 10 Plan of Care Start Date 11/28/22 Plan of Care End Date 02/06/23 Therapeutic Interventions Therapeutic Interventions Balance Training,Coordination Training,Gait Training,Home Exercise Program,Joint Mobilizations,Manual Therapy, Neuromuscular Re-education, Patient/Caregiver Education, Self-Care/Home Management,Soft Tissue Mobilization,Taping, Therapeutic Activities, Therapeutic Exercises Modalities Cold Pack/Ice Massage,Electric Stimulation,Hot Packs, Ultrasound Next Visit Focus/Plan Next Note Type Treatment Note Next Visit Plan Recheck response to standing activity last tx. Standing AROM HEP review. POC: Continue added resistance to LE PREs and progress into higher level balance challenges.
--- NOTE | 2022-12-24 13:39 | PT.OTN ---
Current Diagnoses Other cerebral infarction due to occlusion or stenosis of small artery (12/24/22) Weakness (12/24/22) Physical Therapy Treatment Note PT-OP-A Visit Information Start: 11/28/22 10:27 Freq: Status: Active Protocol: Document 12/24/22 13:39 AM (Rec: 12/24/22 14:39 AM [id number]) Out-Patient Physical Therapy Visit Information Visit Information Visit Type Treatment Note Visit Start Time 13:39 Visit Stop Time 14:22 Total Visit Minutes 43 Visit Number 8 Precautions Precautions *Fall risk *Feeding tube (gait belt at chest above tubing). *Caution thin liquids, sips water ok (12/19/22). PT-OP-B Current Condition Start: 11/28/22 10:27 Freq: Status: Active Protocol: Document 11/28/22 10:27 AM (Rec: 11/28/22 13:00 AM [id number]) Current Condition History of Current Condition History of Current Condition 82-year-old male with history of rheumatoid arthritis presenting with his 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 Pt has had multiple CVA one in June and 1 in July. Pt has mild expressive apasia and cognitive impairment. Following inpatient, pt went to SNF for 4 days, though had a heart attack, ketoacidosis, and another small stroke. Pt has trouble swallowing, therefore has a GI tube. Pt had lost a lot of weight, though gaining back now. reports that he is much weaker and needs to build strength and balance. Pt's denies falls. Pt has a FWW at home. reports that he is able to walk 50ft with FWW. Pt does not have stairs. Treatment Goals Patient/Caregiver Goals To improve strength and balance Prior Functional Status Baseline Function- ADL's Independent Baseline Function- Mobility Independent Current Functional Impairments (Reported) Functional Limitations- ADL's Assist from with ADLs Functional Limitations- Mobility/Gait Needs assist with bed mobility . Pt's reports that he is able to walk, though fatigues quickly. She reports that he takes smaller steps with R LE and demonstrates flexed posture. Pt sleeps inclined on couch secondary to feeding tube precautions. PT-OP-C Subjective Start: 11/28/22 10:27 Freq: Status: Active Protocol: Document 12/24/22 13:39 AM (Rec: 12/24/22 14:39 AM [id number]) OP-PT Subjective Patient Comments Patient Comments Pt's reports that pt is having a more difficult day with mobility today. Pt's brought in an upright walker today. Pt's reports that the tennis balls wear out quickly, so they wanted some thing that is more durable outside. Also having a seat is helpful, so that they don't have to bring a w/c also. PT-OP-D Balance Start: 11/28/22 10:27 Freq: Status: Active Protocol: Document 12/03/22 14:18 AM (Rec: 12/03/22 15:09 AM [id number]) Tinetti Balance Assessment Sitting Balance Sitting Balance Steady, safe Arising from Chair Ability to Arise Able, uses arms to help Attempts to Arise Able, requires >1 attempt Standing Balance Immediate Standing Balance Steady with support Standing Balance Narrow stance w/o support Nudged Response Steady Standing with Eyes Closed Steady Turning Step Pattern Turning 360 Degrees Discontinuous steps Stability Turning 360 Degrees Unsteady, grabs/staggers Sitting Down Sitting Down Uses arms or unsteady Gait and Step Initiation of Gait No hesitancy Right Foot Step Length Does pass stance foot Right Foot Step Height Does not clear floor Left Foot Step Length Does pass stance foot Left Foot Step Height Completely clears floor Step Description Step Symmetry Step length not equal Step Continuity Steps appear continuous Gait Description Path Description Straight Trunk Description No sway but posturing Walking Stance Heels together Scoring and Interpretation Tinetti Composite Score (points) 19 Interpretation of Scores At risk for falls (19-24) Tinetti Impairment Rating from Composite 20 to <40% Impaired (Score 17- Score 22) PT-OP-E Functional Tests Start: 11/28/22 10:27 Freq: Status: Active Protocol: Document 12/01/22 12:49 SP (Rec: 12/03/22 07:23 SP [id number]) Functional Tests 6 Minute Walk Test Distance 361 ft Device Used FWW Comments cued proximity FWW, increase RLE foot clearance, upright posture PT-OP-G Mobility & Gait Start: 11/28/22 10:27 Freq: Status: Active Protocol: Document 11/28/22 10:27 AM (Rec: 11/28/22 17:39 AM [id number]) OP Mobility Evaluation Bed Mobility Rolling Pt able to roll independently from side to side on tx table, though reports that he is unable to roll side to side on bed at home. Supine to and from Sit Pt able to transfer from supine <-> sit on tx table, though slow and reports low back pain. Transfers Sit to Stand CGA for STS. Occasionally requires more than 1 attempt. Use of bryce UE. Bed to Chair Transfers Pt requires cueing to square up in front of surface that he is transfering to. Car Transfers Pt almost missed car seat with transfer from w/c to car seat . CGA required OP Gait Assessment Gait Gait Assistance Required: Contact Guard Assist Distance (Feet) 210 Assistive Devices Assistive Device Gait Belt,Front Wheeled Walker Orthotic/Prosthetic Devices or Brace: No Gait Deviations General Gait Pattern Decreased Stride Length,Flexed Trunk,Narrow Based Gait Factors Limiting Gait Function Factors Limiting Gait Function Decreased Activity Tolerance, Decreased Strength,Limited Range of Motion,Pain,Poor Balance Comments Gait Comments Pt demonstrated decreased stride length when fatigued. reports that he typically has a decreased R stride compared to L, though was able to demonstrate symmetry with gait today. PT-OP-J Posture/Palpation/Skin Start: 11/28/22 10:27 Freq: Status: Active Protocol: Document 11/28/22 10:27 AM (Rec: 11/28/22 17:39 AM [id number]) Posture Evaluation Position Standing Head/C-Spine Posture Forward Head L-Spine Posture Flexed Shoulder Posture (L) Forward,(R) Forward PT-OP-K Range of Motion Start: 11/28/22 10:27 Freq: Status: Active Protocol: Document 11/28/22 10:27 AM (Rec: 11/28/22 17:39 AM [id number]) Hip Goniometric Range of Motion Hip Right Passive Comments R hamstring moderately limited Left Passive Comments L hamstring with moderate limitations PT-OP-M Strength Start: 11/28/22 10:27 Freq: Status: Active Protocol: Document 11/28/22 10:27 AM (Rec: 11/28/22 17:39 AM [id number]) Hip Strength Hip Manual Muscle Testing Right Flexion (L2) 4- Good- Extension (S1) 4- Good- Abduction 4- Good- Adduction 4- Good- Left Flexion (L2) 4- Good- Extension (S1) 4- Good- Abduction 4- Good- Adduction 4- Good- Knee Strength Knee Manual Muscle Testing Right Flexion (S2) 4- Good- Extension (L3) 4- Good- Left Flexion (S2) 4- Good- Extension (L3) 4- Good- Ankle/Foot Strength Ankle and Foot Manual Muscle Testing Right Dorsiflexion (L4) 4- Good- Plantarflexion (S1) 4- Good- Left Dorsiflexion (L4) 4- Good- Plantarflexion (S1) 4- Good- PT-OP-Q Treatments Start: 11/28/22 10:27 Freq: Status: Active Protocol: Document 12/24/22 13:39 AM (Rec: 12/24/22 14:39 AM [id number]) Therapeutic Exercises Standing Exercises step taps Resistance 1-2 UE on //bars Equipment Used 6'' step taps, BUE support on // bars, then uni UE support Reps/Minutes x10 Comments cued elevated trunk posture, TKE stance LE Gait Training Gait Activity walking in // bars Comments cues for high knees, walking with unilateral UE with cues for upright posture and TKE. trek poles Description Gait in gym trial for progression future use home. Device Used B trek poles Level of Assistance 25%A through gait belt Distance/Duration 16 ft, 75 ft Treatment Focus sequencing B trek poles/BUE 2pt gait, upright posture, TKE /Glut fac/stab Comments intermittent cues upright posture 3 brief stops rest & correct, advance R>L trek pole more further. CGA-5%A initially, 25%A as distance progressed. Ambulation Device Used FWW and upright 4WW Level of Assistance CGA for upright, close SBA for FWW Surface carpet/tile Distance/Duration 4x75 ft Treatment Focus endurance, symmetrical step length, posture Comments cued proximity to back legs FWW, foot clearance, tall posture PT-OP-T Assessment and Plan Start: 11/28/22 10:27 Freq: Status: Active Protocol: Document 12/24/22 13:39 AM (Rec: 12/24/22 14:39 AM [id number]) Physical Therapy Assessment Goals Tinetti Impairment Pt with score of 19 on Tinetti . Short Term Goal (STG) Pt with score of 22 on Tinetti . STG Duration 01/02/23 Retirement Goal (LTG) Pt with score of 25 on Tinetti . LTG Duration 02/06/23 Strength Impairment Pt with LE strength grossly at 4-/5. Short Term Goal (STG) Pt with strength grossly at 4/ 5. STG Duration 01/02/23 Sports Specialist Goal (LTG) PT with LE strength grossly at 4+/5 LTG Duration 02/06/23 HEP Sports Specialist Goal (LTG) Pt independent with HEP. LTG Duration 02/06/23 Transfer Impairment Pt able to transfer from sit to stand with CGA and occasional cues. Short Term Goal (STG) Pt independent with transfers from sit-stand. STG Duration 01/02/23 Sports Specialist Goal (LTG) Pt able to transfer from sit- stand without use of UE from surface that is 22 inches high . LTG Duration 02/06/23 Bed mobility Impairment Pt unable to roll in bed at home or transfer from supine to sit without assist from . Short Term Goal (STG) Pt able to roll and transfer from supine-sit without assist at bed at home. STG Duration 01/02/23 Gait Impairment Pt able to walk 210 ft before need to sit secondary to fatigue. Pt able to walk 361 ft in 6 MWT. Short Term Goal (STG) Pt able to ambulate 500 ft before need to sit secondary to fatigue. 12/19/22: progressed 100ft c/ fww close SBA, 16, 75 ft c/ trekpoles Min A. STG Duration 01/02/23 progressing 12/19/22 Retirement Goal (LTG) Pt able to ambulate 1000ft before need to sit secondary to fatigue. LTG Duration 02/06/23 Assessment Summary Assessment Pt challenged with difficulty with gait with 4WW. Pt demonstrated path deviation and continues to demonstrate trunk flexion secondary to seat impeding gait pattern. Unable to adjust or move seat. Pt also with difficulty with turning around to sit in seat without Min-Mod A. Pt demonstrated 1 LOB with ambulating with trekking poles , requiring correction from PT . Pt continues to be safest with FWW. Pt challenged with step-taps at end of tx session today secondary to fatigue, with difficulty clearing R LE. Pt would benefit from continued PT to progress mobility, strength and balance to improve tolerance/safety to functional tasks. Physical Therapy Plan Frequency and Duration Frequency of Treatment 2x/Week Duration of treatment (weeks) 10 Plan of Care Start Date 11/28/22 Plan of Care End Date 02/06/23 Therapeutic Interventions Therapeutic Interventions Balance Training,Coordination Training,Gait Training,Home Exercise Program,Joint Mobilizations,Manual Therapy, Neuromuscular Re-education, Patient/Caregiver Education, Self-Care/Home Management,Soft Tissue Mobilization,Taping, Therapeutic Activities, Therapeutic Exercises Modalities Cold Pack/Ice Massage,Electric Stimulation,Hot Packs, Ultrasound Next Visit Focus/Plan Next Note Type Treatment Note Next Visit Plan Recheck response to standing activity last tx. Standing AROM HEP review. POC: Continue added resistance to LE PREs and progress into higher level balance challenges.
--- NOTE | 2022-12-26 13:42 | PT.OTN ---
Current Diagnoses Other cerebral infarction due to occlusion or stenosis of small artery (12/26/22) Weakness (12/26/22) Physical Therapy Treatment Note PT-OP-A Visit Information Start: 11/28/22 10:27 Freq: Status: Active Protocol: Document 12/26/22 13:42 AM (Rec: 12/26/22 15:01 AM [id number]) Out-Patient Physical Therapy Visit Information Visit Information Visit Type Treatment Note Visit Start Time 13:42 Visit Stop Time 14:20 Total Visit Minutes 38 Visit Number 9 Precautions Precautions *Fall risk *Feeding tube (gait belt at chest above tubing). *Caution thin liquids, sips water ok (12/19/22). PT-OP-B Current Condition Start: 11/28/22 10:27 Freq: Status: Active Protocol: Document 11/28/22 10:27 AM (Rec: 11/28/22 13:00 AM [id number]) Current Condition History of Current Condition History of Current Condition 82-year-old male with history of rheumatoid arthritis presenting with his 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 Pt has had multiple CVA one in June and 1 in July. Pt has mild expressive apasia and cognitive impairment. Following inpatient, pt went to SNF for 4 days, though had a heart attack, ketoacidosis, and another small stroke. Pt has trouble swallowing, therefore has a GI tube. Pt had lost a lot of weight, though gaining back now. reports that he is much weaker and needs to build strength and balance. Pt's denies falls. Pt has a FWW at home. reports that he is able to walk 50ft with FWW. Pt does not have stairs. Treatment Goals Patient/Caregiver Goals To improve strength and balance Prior Functional Status Baseline Function- ADL's Independent Baseline Function- Mobility Independent Current Functional Impairments (Reported) Functional Limitations- ADL's Assist from with ADLs Functional Limitations- Mobility/Gait Needs assist with bed mobility . Pt's reports that he is able to walk, though fatigues quickly. She reports that he takes smaller steps with R LE and demonstrates flexed posture. Pt sleeps inclined on couch secondary to feeding tube precautions. PT-OP-C Subjective Start: 11/28/22 10:27 Freq: Status: Active Protocol: Document 12/26/22 13:42 AM (Rec: 12/26/22 15:01 AM [id number]) OP-PT Subjective Patient Comments Patient Comments Pt went to PCP today. They are going to move forward with getting feeding tube removed in the next couple of months. Pt's son also reports that pt is going to start taking an anti-inflammatory for low back pain. presented at end of tx with standard 4WW that she got from [facility]. Pt reports that his low back pain impedes his tolerance to standing vs LE fatigue. PT-OP-D Balance Start: 11/28/22 10:27 Freq: Status: Active Protocol: Document 12/03/22 14:18 AM (Rec: 12/03/22 15:09 AM [id number]) Tinetti Balance Assessment Sitting Balance Sitting Balance Steady, safe Arising from Chair Ability to Arise Able, uses arms to help Attempts to Arise Able, requires >1 attempt Standing Balance Immediate Standing Balance Steady with support Standing Balance Narrow stance w/o support Nudged Response Steady Standing with Eyes Closed Steady Turning Step Pattern Turning 360 Degrees Discontinuous steps Stability Turning 360 Degrees Unsteady, grabs/staggers Sitting Down Sitting Down Uses arms or unsteady Gait and Step Initiation of Gait No hesitancy Right Foot Step Length Does pass stance foot Right Foot Step Height Does not clear floor Left Foot Step Length Does pass stance foot Left Foot Step Height Completely clears floor Step Description Step Symmetry Step length not equal Step Continuity Steps appear continuous Gait Description Path Description Straight Trunk Description No sway but posturing Walking Stance Heels together Scoring and Interpretation Tinetti Composite Score (points) 19 Interpretation of Scores At risk for falls (19-24) Tinetti Impairment Rating from Composite 20 to <40% Impaired (Score 17- Score 22) PT-OP-E Functional Tests Start: 11/28/22 10:27 Freq: Status: Active Protocol: Document 12/01/22 12:49 SP (Rec: 12/03/22 07:23 SP [id number]) Functional Tests 6 Minute Walk Test Distance 361 ft Device Used FWW Comments cued proximity FWW, increase RLE foot clearance, upright posture PT-OP-G Mobility & Gait Start: 11/28/22 10:27 Freq: Status: Active Protocol: Document 11/28/22 10:27 AM (Rec: 11/28/22 17:39 AM [id number]) OP Mobility Evaluation Bed Mobility Rolling Pt able to roll independently from side to side on tx table, though reports that he is unable to roll side to side on bed at home. Supine to and from Sit Pt able to transfer from supine <-> sit on tx table, though slow and reports low back pain. Transfers Sit to Stand CGA for STS. Occasionally requires more than 1 attempt. Use of bryce UE. Bed to Chair Transfers Pt requires cueing to square up in front of surface that he is transfering to. Car Transfers Pt almost missed car seat with transfer from w/c to car seat . CGA required OP Gait Assessment Gait Gait Assistance Required: Contact Guard Assist Distance (Feet) 210 Assistive Devices Assistive Device Gait Belt,Front Wheeled Walker Orthotic/Prosthetic Devices or Brace: No Gait Deviations General Gait Pattern Decreased Stride Length,Flexed Trunk,Narrow Based Gait Factors Limiting Gait Function Factors Limiting Gait Function Decreased Activity Tolerance, Decreased Strength,Limited Range of Motion,Pain,Poor Balance Comments Gait Comments Pt demonstrated decreased stride length when fatigued. reports that he typically has a decreased R stride compared to L, though was able to demonstrate symmetry with gait today. PT-OP-J Posture/Palpation/Skin Start: 11/28/22 10:27 Freq: Status: Active Protocol: Document 11/28/22 10:27 AM (Rec: 11/28/22 17:39 AM [id number]) Posture Evaluation Position Standing Head/C-Spine Posture Forward Head L-Spine Posture Flexed Shoulder Posture (L) Forward,(R) Forward PT-OP-K Range of Motion Start: 11/28/22 10:27 Freq: Status: Active Protocol: Document 11/28/22 10:27 AM (Rec: 11/28/22 17:39 AM [id number]) Hip Goniometric Range of Motion Hip Right Passive Comments R hamstring moderately limited Left Passive Comments L hamstring with moderate limitations PT-OP-M Strength Start: 11/28/22 10:27 Freq: Status: Active Protocol: Document 11/28/22 10:27 AM (Rec: 11/28/22 17:39 AM [id number]) Hip Strength Hip Manual Muscle Testing Right Flexion (L2) 4- Good- Extension (S1) 4- Good- Abduction 4- Good- Adduction 4- Good- Left Flexion (L2) 4- Good- Extension (S1) 4- Good- Abduction 4- Good- Adduction 4- Good- Knee Strength Knee Manual Muscle Testing Right Flexion (S2) 4- Good- Extension (L3) 4- Good- Left Flexion (S2) 4- Good- Extension (L3) 4- Good- Ankle/Foot Strength Ankle and Foot Manual Muscle Testing Right Dorsiflexion (L4) 4- Good- Plantarflexion (S1) 4- Good- Left Dorsiflexion (L4) 4- Good- Plantarflexion (S1) 4- Good- PT-OP-Q Treatments Start: 11/28/22 10:27 Freq: Status: Active Protocol: Document 12/26/22 13:42 AM (Rec: 12/26/22 15:01 AM [id number]) Cardio Equipment Recumbent Elliptical (Biodex) Duration (Minutes) 6 Resistance 6 Seat Position 11 Therapeutic Exercises Standing Exercises Hip extension Resistance AROM Equipment Used BUE on //bar Reps/Minutes 2x10 ea LE Comments cue elevate trunk, TKE & glut fac Hip abduction Resistance AROM Equipment Used BUE on // bar Reps/Minutes 2x10 ea LE Comments cues for posture marching Side bilateral Equipment Used // bars Reps/Minutes x10 Other Exercises Pallof press Side bilateral Resistance [place] TB Equipment Used In // bars Reps/Minutes x10 ea way Gait Training Gait Activity trek poles Description Gait in gym trial for progression future use home. Device Used B trek poles Level of Assistance 25%A through gait belt Distance/Duration 16 ft, 75 ft Treatment Focus sequencing B trek poles/BUE 2pt gait, upright posture, TKE /Glut fac/stab Comments intermittent cues upright posture Ambulation Device Used standard 4WW Level of Assistance CGA, cues for posture Surface carpet/tile Distance/Duration 2x30 ft Treatment Focus endurance, symmetrical step length, posture Comments PT instructed to bring new 4WW to next session to further gait train with device . PT-OP-T Assessment and Plan Start: 11/28/22 10:27 Freq: Status: Active Protocol: Document 12/26/22 13:42 AM (Rec: 12/26/22 15:01 AM [id number]) Physical Therapy Assessment Goals Tinetti Impairment Pt with score of 19 on Tinetti . Short Term Goal (STG) Pt with score of 22 on Tinetti . STG Duration 01/02/23 Retirement Goal (LTG) Pt with score of 25 on Tinetti . LTG Duration 02/06/23 Strength Impairment Pt with LE strength grossly at 4-/5. Short Term Goal (STG) Pt with strength grossly at 4/ 5. STG Duration 01/02/23 Retirement Goal (LTG) PT with LE strength grossly at 4+/5 LTG Duration 02/06/23 HEP Endodontic Assistant Goal (LTG) Pt independent with HEP. LTG Duration 02/06/23 Transfer Impairment Pt able to transfer from sit to stand with CGA and occasional cues. Short Term Goal (STG) Pt independent with transfers from sit-stand. STG Duration 01/02/23 Endodontic Assistant Goal (LTG) Pt able to transfer from sit- stand without use of UE from surface that is 22 inches high . LTG Duration 02/06/23 Bed mobility Impairment Pt unable to roll in bed at home or transfer from supine to sit without assist from . Short Term Goal (STG) Pt able to roll and transfer from supine-sit without assist at bed at home. STG Duration 01/02/23 Gait Impairment Pt able to walk 210 ft before need to sit secondary to fatigue. Pt able to walk 361 ft in 6 MWT. Short Term Goal (STG) Pt able to ambulate 500 ft before need to sit secondary to fatigue. 12/19/22: progressed 100ft c/ fww close SBA, 16, 75 ft c/ trekpoles Min A. STG Duration 01/02/23 progressing 12/19/22 Endodontic Assistant Goal (LTG) Pt able to ambulate 1000ft before need to sit secondary to fatigue. LTG Duration 02/06/23 Assessment Summary Assessment Pt demonstrates decreased step length with trekking poles, particularly with R LE. Pt demonstrated improved posture with 4WW compared to upright 4WW. Pt will bring to future PT session to continue to train with. Pt with increased fatigue levels today, requiring more frequent rest breaks compared to previous session. Pt also reporting low back pain with standing activities. Pt would benefit from continued PT to progress strength, balance and mobility to improve tolerance to functional tasks. Physical Therapy Plan Frequency and Duration Frequency of Treatment 2x/Week Duration of treatment (weeks) 10 Plan of Care Start Date 11/28/22 Plan of Care End Date 02/06/23 Therapeutic Interventions Therapeutic Interventions Balance Training,Coordination Training,Gait Training,Home Exercise Program,Joint Mobilizations,Manual Therapy, Neuromuscular Re-education, Patient/Caregiver Education, Self-Care/Home Management,Soft Tissue Mobilization,Taping, Therapeutic Activities, Therapeutic Exercises Modalities Cold Pack/Ice Massage,Electric Stimulation,Hot Packs, Ultrasound Next Visit Focus/Plan Next Note Type Treatment Note Next Visit Plan Recheck response to standing activity last tx. Standing AROM HEP review. POC: Continue added resistance to LE PREs and progress into higher level balance challenges.
--- NOTE | 2022-12-29 13:42 | PT.OTN ---
Current Diagnoses Other cerebral infarction due to occlusion or stenosis of small artery (12/29/22) Weakness (12/29/22) Physical Therapy Treatment Note PT-OP-A Visit Information Start: 11/28/22 10:27 Freq: Status: Active Protocol: Document 12/29/22 13:42 AM (Rec: 12/29/22 14:21 AM [id number]) Out-Patient Physical Therapy Visit Information Visit Information Visit Type Progress Note Visit Note Pt late Visit Start Time 13:42 Visit Stop Time 15:15 Total Visit Minutes 33 Visit Number 10 PT-OP-B Current Condition Start: 11/28/22 10:27 Freq: Status: Active Protocol: Document 11/28/22 10:27 AM (Rec: 11/28/22 13:00 AM [id number]) Current Condition History of Current Condition History of Current Condition 82-year-old male with history of rheumatoid arthritis presenting with his 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 Pt has had multiple CVA one in June and 1 in July. Pt has mild expressive apasia and cognitive impairment. Following inpatient, pt went to SNF for 4 days, though had a heart attack, ketoacidosis, and another small stroke. Pt has trouble swallowing, therefore has a GI tube. Pt had lost a lot of weight, though gaining back now. reports that he is much weaker and needs to build strength and balance. Pt's denies falls. Pt has a FWW at home. reports that he is able to walk 50ft with FWW. Pt does not have stairs. Treatment Goals Patient/Caregiver Goals To improve strength and balance Prior Functional Status Baseline Function- ADL's Independent Baseline Function- Mobility Independent Current Functional Impairments (Reported) Functional Limitations- ADL's Assist from with ADLs Functional Limitations- Mobility/Gait Needs assist with bed mobility . Pt's reports that he is able to walk, though fatigues quickly. She reports that he takes smaller steps with R LE and demonstrates flexed posture. Pt sleeps inclined on couch secondary to feeding tube precautions. PT-OP-C Subjective Start: 11/28/22 10:27 Freq: Status: Active Protocol: Document 12/29/22 13:42 AM (Rec: 12/29/22 14:21 AM [id number]) OP-PT Subjective Patient Comments Patient Comments Pt's reports that pt is tired today and will likely need a nap after PT. She reports that she has noticed that he has had more difficulty with clearing his R LE the last 2 days. PT-OP-D Balance Start: 11/28/22 10:27 Freq: Status: Active Protocol: Document 12/03/22 14:18 AM (Rec: 12/03/22 15:09 AM [id number]) Tinetti Balance Assessment Sitting Balance Sitting Balance Steady, safe Arising from Chair Ability to Arise Able, uses arms to help Attempts to Arise Able, requires >1 attempt Standing Balance Immediate Standing Balance Steady with support Standing Balance Narrow stance w/o support Nudged Response Steady Standing with Eyes Closed Steady Turning Step Pattern Turning 360 Degrees Discontinuous steps Stability Turning 360 Degrees Unsteady, grabs/staggers Sitting Down Sitting Down Uses arms or unsteady Gait and Step Initiation of Gait No hesitancy Right Foot Step Length Does pass stance foot Right Foot Step Height Does not clear floor Left Foot Step Length Does pass stance foot Left Foot Step Height Completely clears floor Step Description Step Symmetry Step length not equal Step Continuity Steps appear continuous Gait Description Path Description Straight Trunk Description No sway but posturing Walking Stance Heels together Scoring and Interpretation Tinetti Composite Score (points) 19 Interpretation of Scores At risk for falls (19-24) Tinetti Impairment Rating from Composite 20 to <40% Impaired (Score 17- Score 22) PT-OP-E Functional Tests Start: 11/28/22 10:27 Freq: Status: Active Protocol: Document 12/29/22 13:42 AM (Rec: 12/29/22 14:21 AM [id number]) Functional Tests 6 Minute Walk Test Distance 370 Device Used FWW Comments close SBA, occasional CGA with corners or with transitions from tile/carpet Tinetti Balance and Gait Assessment Composite Score 19 PT-OP-G Mobility & Gait Start: 11/28/22 10:27 Freq: Status: Active Protocol: Document 11/28/22 10:27 AM (Rec: 11/28/22 17:39 AM [id number]) OP Mobility Evaluation Bed Mobility Rolling Pt able to roll independently from side to side on tx table, though reports that he is unable to roll side to side on bed at home. Supine to and from Sit Pt able to transfer from supine <-> sit on tx table, though slow and reports low back pain. Transfers Sit to Stand CGA for STS. Occasionally requires more than 1 attempt. Use of bryce UE. Bed to Chair Transfers Pt requires cueing to square up in front of surface that he is transfering to. Car Transfers Pt almost missed car seat with transfer from w/c to car seat . CGA required OP Gait Assessment Gait Gait Assistance Required: Contact Guard Assist Distance (Feet) 210 Assistive Devices Assistive Device Gait Belt,Front Wheeled Walker Orthotic/Prosthetic Devices or Brace: No Gait Deviations General Gait Pattern Decreased Stride Length,Flexed Trunk,Narrow Based Gait Factors Limiting Gait Function Factors Limiting Gait Function Decreased Activity Tolerance, Decreased Strength,Limited Range of Motion,Pain,Poor Balance Comments Gait Comments Pt demonstrated decreased stride length when fatigued. reports that he typically has a decreased R stride compared to L, though was able to demonstrate symmetry with gait today. PT-OP-J Posture/Palpation/Skin Start: 11/28/22 10:27 Freq: Status: Active Protocol: Document 11/28/22 10:27 AM (Rec: 11/28/22 17:39 AM [id number]) Posture Evaluation Position Standing Head/C-Spine Posture Forward Head L-Spine Posture Flexed Shoulder Posture (L) Forward,(R) Forward PT-OP-K Range of Motion Start: 11/28/22 10:27 Freq: Status: Active Protocol: Document 11/28/22 10:27 AM (Rec: 11/28/22 17:39 AM [id number]) Hip Goniometric Range of Motion Hip Right Passive Comments R hamstring moderately limited Left Passive Comments L hamstring with moderate limitations PT-OP-M Strength Start: 11/28/22 10:27 Freq: Status: Active Protocol: Document 11/28/22 10:27 AM (Rec: 11/28/22 17:39 AM [id number]) Hip Strength Hip Manual Muscle Testing Right Flexion (L2) 4- Good- Extension (S1) 4- Good- Abduction 4- Good- Adduction 4- Good- Left Flexion (L2) 4- Good- Extension (S1) 4- Good- Abduction 4- Good- Adduction 4- Good- Knee Strength Knee Manual Muscle Testing Right Flexion (S2) 4- Good- Extension (L3) 4- Good- Left Flexion (S2) 4- Good- Extension (L3) 4- Good- Ankle/Foot Strength Ankle and Foot Manual Muscle Testing Right Dorsiflexion (L4) 4- Good- Plantarflexion (S1) 4- Good- Left Dorsiflexion (L4) 4- Good- Plantarflexion (S1) 4- Good- PT-OP-Q Treatments Start: 11/28/22 10:27 Freq: Status: Active Protocol: Document 12/29/22 13:42 AM (Rec: 12/29/22 17:44 AM [id number]) Gait Training Gait Activity 6MWT Description 6MWT Device Used FWW Level of Assistance SBA, occasional CGA Surface level Treatment Focus endurance Ambulation Device Used standard 4WW Level of Assistance CGA, cues for posture Surface carpet/tile Distance/Duration 2x30 ft Treatment Focus endurance, symmetrical step length, posture Comments PT instructed to bring new 4WW to next session to further gait train with device . Neuro Re-Education Treatment Balance Activities Hurdles Equipment hurdles in // bars Comments Pt used bryce UE and demonstrated difficulty with clearing hurdles with support, though improved with repetitions. Step-taps Details with and without UE Support Equipment in // bars Reps/Duration 2x10 Tinetti Details Tinetti test, EC, nudging, STS without UE support PT-OP-T Assessment and Plan Start: 11/28/22 10:27 Freq: Status: Active Protocol: Document 12/29/22 13:42 AM (Rec: 12/29/22 14:21 AM [id number]) Physical Therapy Assessment Goals Tinetti Impairment Pt with score of 19 on Tinetti . Short Term Goal (STG) Pt with score of 22 on Tinetti . 12/29/22: Pt with score of 19 on Tinnetti. STG Duration 01/02/23 Custodial Goal (LTG) Pt with score of 25 on Tinetti . LTG Duration 02/06/23 Strength Impairment Pt with LE strength grossly at 4-/5. Short Term Goal (STG) Pt with strength grossly at 4/ 5. 12/29/22: Pt with LE strength grossly from 4-/5 to 4/5. Progressing towards goal. STG Duration 01/02/23 Full Stack Software Engineer Goal (LTG) PT with LE strength grossly at 4+/5 LTG Duration 02/06/23 HEP Custodial Goal (LTG) Pt independent with HEP. LTG Duration 02/06/23 Transfer Impairment Pt able to transfer from sit to stand with CGA and occasional cues. Short Term Goal (STG) Pt independent with transfers from sit-stand. 12/29/22: Goal met STG Duration 01/02/23 Full Stack Software Engineer Goal (LTG) Pt able to transfer from sit- stand without use of UE from surface that is 22 inches high . 12/29/22: Goal met. Pt able to transfer STS without use of UE From surface that is 21 inches high. LTG Duration 02/06/23-achieved Bed mobility Impairment Pt unable to roll in bed at home or transfer from supine to sit without assist from . Short Term Goal (STG) Pt able to roll and transfer from supine-sit without assist at bed at home. STG Duration 01/02/23 Gait Impairment Pt able to walk 210 ft before need to sit secondary to fatigue. Pt able to walk 361 ft in 6 MWT. Short Term Goal (STG) Pt able to ambulate 500 ft before need to sit secondary to fatigue. 12/19/22: progressed 100ft c/ fww close SBA, 16, 75 ft c/ trekpoles Min A. 12/29/22: Pt able to walk 370ft before need to sit secondary to fatigue. Pt able to walk 370 ft during 6MWT with FWW. STG Duration 01/02/23 progressing 12/19/22 Full Stack Software Engineer Goal (LTG) Pt able to ambulate 1000ft before need to sit secondary to fatigue. LTG Duration 02/06/23 Assessment Summary Assessment Pt with increased fatigue level today, demonstrating difficulty with 6MWT today. Pt required more frequent cueing for clearance of R LE during gait activities. Pt challenged with clearing hurdles bilaterally with UE support in // bars. Pt would benefit from continued PT to progress LE strength and mobility to improve tolerance and independence with functional activities. Physical Therapy Plan Frequency and Duration Frequency of Treatment 2x/Week Duration of treatment (weeks) 10 Plan of Care Start Date 11/28/22 Plan of Care End Date 02/06/23 Therapeutic Interventions Therapeutic Interventions Balance Training,Coordination Training,Gait Training,Home Exercise Program,Joint Mobilizations,Manual Therapy, Neuromuscular Re-education, Patient/Caregiver Education, Self-Care/Home Management,Soft Tissue Mobilization,Taping, Therapeutic Activities, Therapeutic Exercises Modalities Cold Pack/Ice Massage,Electric Stimulation,Hot Packs, Ultrasound Next Visit Focus/Plan Next Note Type Treatment Note Next Visit Plan add trunk stabilization exercises, assess log roll POC: Continue added resistance to LE PREs and progress into higher level balance challenges.
--- NOTE | 2023-01-02 14:18 | PT.OTN ---
Current Diagnoses Other cerebral infarction due to occlusion or stenosis of small artery (01/02/23) Weakness (01/02/23) Physical Therapy Treatment Note PT-OP-A Visit Information Start: 11/28/22 10:27 Freq: Status: Active Protocol: Document 01/02/23 13:49 SP (Rec: 01/02/23 14:17 SP [id number]) Out-Patient Physical Therapy Visit Information Visit Information Visit Type Treatment Note Visit Note Pt 19 min late for appt Son brought pt today, didn't stay for appt. Visit Start Time 13:49 Visit Stop Time 14:18 Total Visit Minutes 29 Visit Number 11 Number of [employer] Visits 1 Evaluation Information Evaluation Date 11/28/22 Precautions Precautions *Fall risk *Feeding tube (gait belt at chest above tubing). *Caution thin liquids, sips water ok (12/19/22). PT-OP-B Current Condition Start: 11/28/22 10:27 Freq: Status: Active Protocol: Document 11/28/22 10:27 AM (Rec: 11/28/22 13:00 AM [id number]) Current Condition History of Current Condition History of Current Condition 82-year-old male with history of rheumatoid arthritis presenting with his 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 Pt has had multiple CVA one in June and 1 in July. Pt has mild expressive apasia and cognitive impairment. Following inpatient, pt went to SNF for 4 days, though had a heart attack, ketoacidosis, and another small stroke. Pt has trouble swallowing, therefore has a GI tube. Pt had lost a lot of weight, though gaining back now. reports that he is much weaker and needs to build strength and balance. Pt's denies falls. Pt has a FWW at home. reports that he is able to walk 50ft with FWW. Pt does not have stairs. Treatment Goals Patient/Caregiver Goals To improve strength and balance Prior Functional Status Baseline Function- ADL's Independent Baseline Function- Mobility Independent Current Functional Impairments (Reported) Functional Limitations- ADL's Assist from with ADLs Functional Limitations- Mobility/Gait Needs assist with bed mobility . Pt's reports that he is able to walk, though fatigues quickly. She reports that he takes smaller steps with R LE and demonstrates flexed posture. Pt sleeps inclined on couch secondary to feeding tube precautions. PT-OP-C Subjective Start: 11/28/22 10:27 Freq: Status: Active Protocol: Document 01/02/23 13:49 SP (Rec: 01/02/23 14:17 SP [id number]) OP-PT Subjective Patient Comments Patient Comments Pt reports was tired after last tx but didn't affect his mobility. Family not in waiting room or attend tx today. PT-OP-D Balance Start: 11/28/22 10:27 Freq: Status: Active Protocol: Document 12/03/22 14:18 AM (Rec: 12/03/22 15:09 AM [id number]) Tinetti Balance Assessment Sitting Balance Sitting Balance Steady, safe Arising from Chair Ability to Arise Able, uses arms to help Attempts to Arise Able, requires >1 attempt Standing Balance Immediate Standing Balance Steady with support Standing Balance Narrow stance w/o support Nudged Response Steady Standing with Eyes Closed Steady Turning Step Pattern Turning 360 Degrees Discontinuous steps Stability Turning 360 Degrees Unsteady, grabs/staggers Sitting Down Sitting Down Uses arms or unsteady Gait and Step Initiation of Gait No hesitancy Right Foot Step Length Does pass stance foot Right Foot Step Height Does not clear floor Left Foot Step Length Does pass stance foot Left Foot Step Height Completely clears floor Step Description Step Symmetry Step length not equal Step Continuity Steps appear continuous Gait Description Path Description Straight Trunk Description No sway but posturing Walking Stance Heels together Scoring and Interpretation Tinetti Composite Score (points) 19 Interpretation of Scores At risk for falls (19-24) Tinetti Impairment Rating from Composite 20 to <40% Impaired (Score 17- Score 22) PT-OP-E Functional Tests Start: 11/28/22 10:27 Freq: Status: Active Protocol: Document 12/29/22 13:42 AM (Rec: 12/29/22 14:21 AM [id number]) Functional Tests 6 Minute Walk Test Distance 370 Device Used FWW Comments close SBA, occasional CGA with corners or with transitions from tile/carpet Tinetti Balance and Gait Assessment Composite Score 19 PT-OP-G Mobility & Gait Start: 11/28/22 10:27 Freq: Status: Active Protocol: Document 11/28/22 10:27 AM (Rec: 11/28/22 17:39 AM [id number]) OP Mobility Evaluation Bed Mobility Rolling Pt able to roll independently from side to side on tx table, though reports that he is unable to roll side to side on bed at home. Supine to and from Sit Pt able to transfer from supine <-> sit on tx table, though slow and reports low back pain. Transfers Sit to Stand CGA for STS. Occasionally requires more than 1 attempt. Use of bryce UE. Bed to Chair Transfers Pt requires cueing to square up in front of surface that he is transfering to. Car Transfers Pt almost missed car seat with transfer from w/c to car seat . CGA required OP Gait Assessment Gait Gait Assistance Required: Contact Guard Assist Distance (Feet) 210 Assistive Devices Assistive Device Gait Belt,Front Wheeled Walker Orthotic/Prosthetic Devices or Brace: No Gait Deviations General Gait Pattern Decreased Stride Length,Flexed Trunk,Narrow Based Gait Factors Limiting Gait Function Factors Limiting Gait Function Decreased Activity Tolerance, Decreased Strength,Limited Range of Motion,Pain,Poor Balance Comments Gait Comments Pt demonstrated decreased stride length when fatigued. reports that he typically has a decreased R stride compared to L, though was able to demonstrate symmetry with gait today. PT-OP-J Posture/Palpation/Skin Start: 11/28/22 10:27 Freq: Status: Active Protocol: Document 11/28/22 10:27 AM (Rec: 11/28/22 17:39 AM [id number]) Posture Evaluation Position Standing Head/C-Spine Posture Forward Head L-Spine Posture Flexed Shoulder Posture (L) Forward,(R) Forward PT-OP-K Range of Motion Start: 11/28/22 10:27 Freq: Status: Active Protocol: Document 11/28/22 10:27 AM (Rec: 11/28/22 17:39 AM [id number]) Hip Goniometric Range of Motion Hip Right Passive Comments R hamstring moderately limited Left Passive Comments L hamstring with moderate limitations PT-OP-M Strength Start: 11/28/22 10:27 Freq: Status: Active Protocol: Document 11/28/22 10:27 AM (Rec: 11/28/22 17:39 AM [id number]) Hip Strength Hip Manual Muscle Testing Right Flexion (L2) 4- Good- Extension (S1) 4- Good- Abduction 4- Good- Adduction 4- Good- Left Flexion (L2) 4- Good- Extension (S1) 4- Good- Abduction 4- Good- Adduction 4- Good- Knee Strength Knee Manual Muscle Testing Right Flexion (S2) 4- Good- Extension (L3) 4- Good- Left Flexion (S2) 4- Good- Extension (L3) 4- Good- Ankle/Foot Strength Ankle and Foot Manual Muscle Testing Right Dorsiflexion (L4) 4- Good- Plantarflexion (S1) 4- Good- Left Dorsiflexion (L4) 4- Good- Plantarflexion (S1) 4- Good- PT-OP-Q Treatments Start: 11/28/22 10:27 Freq: Status: Active Protocol: Document 01/02/23 13:49 SP (Rec: 01/02/23 14:17 SP [id number]) Gym Equipment Shuttle Recovery Unilateral squat Details manual cueing for R LE to decrease valgus and cue for TKE at knee Resistance 37# (1 teal) Shuttle Recovery Platform Stable Reps/Time 2x30 sec (approx 15 reps) Bilateral squat Details cues for TKE, decreased speed, decrease R knee valgus Resistance 75 (all teal) Shuttle Recovery Platform Stable Reps/Time 2x30 sec (approx 15 reps) Therapeutic Exercises Sitting Exercises STS Equipment Used mesh chair BUE support cues Reps/Minutes x5 Comments cued for slow descend Gait Training Gait Activity Ambulation Device Used standard FWW Level of Assistance CGA, cues for posture Surface carpet/tile Distance/Duration 80 ft to/from waiting room Treatment Focus endurance, symmetrical step length, posture Comments PT instructed to bring new 4WW to next session to further gait train with device . Neuro Re-Education Treatment Balance Activities rocker board Details fwd/bwd, lateral Surface Min A Equipment //bars Comments cues for R TKE. PT-OP-T Assessment and Plan Start: 11/28/22 10:27 Freq: Status: Active Protocol: Document 01/02/23 13:49 SP (Rec: 01/02/23 14:17 SP [id number]) Physical Therapy Assessment Goals Tinetti Impairment Pt with score of 19 on Tinetti . Short Term Goal (STG) Pt with score of 22 on Tinetti . 12/29/22: Pt with score of 19 on Tinnetti. STG Duration 01/02/23 Alf Goal (LTG) Pt with score of 25 on Tinetti . LTG Duration 02/06/23 Strength Impairment Pt with LE strength grossly at 4-/5. Short Term Goal (STG) Pt with strength grossly at 4/ 5. 12/29/22: Pt with LE strength grossly from 4-/5 to 4/5. Progressing towards goal. STG Duration 01/02/23 Alf Goal (LTG) PT with LE strength grossly at 4+/5 LTG Duration 02/06/23 HEP Alf Goal (LTG) Pt independent with HEP. LTG Duration 02/06/23 Bed mobility Impairment Pt unable to roll in bed at home or transfer from supine to sit without assist from . Short Term Goal (STG) Pt able to roll and transfer from supine-sit without assist at bed at home. STG Duration 01/02/23 Gait Impairment Pt able to walk 210 ft before need to sit secondary to fatigue. Pt able to walk 361 ft in 6 MWT. Short Term Goal (STG) Pt able to ambulate 500 ft before need to sit secondary to fatigue. 12/19/22: progressed 100ft c/ fww close SBA, 16, 75 ft c/ trekpoles Min A. 12/29/22: Pt able to walk 370ft before need to sit secondary to fatigue. Pt able to walk 370 ft during 6MWT with FWW. STG Duration 01/02/23 progressing 12/19/22 Alf Goal (LTG) Pt able to ambulate 1000ft before need to sit secondary to fatigue. LTG Duration 02/06/23 Assessment Summary Assessment Pt arrived 19 min late for appt, able to decrease UE support on rocker board c/ cues for elongated posturing wt shift pelvis under shoulders and wt shift into forefoot/heel multidirections, max cues for R>LLE TKE for increase stability. Physical Therapy Plan Frequency and Duration Frequency of Treatment 2x/Week Duration of treatment (weeks) 10 Plan of Care Start Date 11/28/22 Plan of Care End Date 02/06/23 Therapeutic Interventions Therapeutic Interventions Balance Training,Coordination Training,Gait Training,Home Exercise Program,Joint Mobilizations,Manual Therapy, Neuromuscular Re-education, Patient/Caregiver Education, Self-Care/Home Management,Soft Tissue Mobilization,Taping, Therapeutic Activities, Therapeutic Exercises Modalities Cold Pack/Ice Massage,Electric Stimulation,Hot Packs, Ultrasound Next Visit Focus/Plan Next Note Type Treatment Note Next Visit Plan Check if brought 4WW, added ski's (warn out tennsi balls) to FWW (suggested son last tx) . POC: add trunk stabilization exercises, assess log roll. POC: Continue added resistance to LE PREs and progress into higher level balance challenges.
--- NOTE | 2023-01-07 13:46 | PT.OTN ---
Current Diagnoses Other cerebral infarction due to occlusion or stenosis of small artery (01/07/23) Weakness (01/07/23) Physical Therapy Treatment Note PT-OP-A Visit Information Start: 11/28/22 10:27 Freq: Status: Active Protocol: Document 01/07/23 13:46 AM (Rec: 01/07/23 16:46 AM [id number]) Out-Patient Physical Therapy Visit Information Visit Information Visit Type Treatment Note Visit Note Pt 16 min late for appt. Pt's reports that he is fed via feeding tube at 1230 and she though that it would be enough time, though has not been enough time recently. PT discussed changing PT time to accommodate if this is an issue next tx session. Visit Start Time 13:46 Visit Stop Time 14:16 Total Visit Minutes 30 Visit Number 12 PT-OP-B Current Condition Start: 11/28/22 10:27 Freq: Status: Active Protocol: Document 11/28/22 10:27 AM (Rec: 11/28/22 13:00 AM [id number]) Current Condition History of Current Condition History of Current Condition 82-year-old male with history of rheumatoid arthritis presenting with his 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 Pt has had multiple CVA one in June and 1 in July. Pt has mild expressive apasia and cognitive impairment. Following inpatient, pt went to SNF for 4 days, though had a heart attack, ketoacidosis, and another small stroke. Pt has trouble swallowing, therefore has a GI tube. Pt had lost a lot of weight, though gaining back now. reports that he is much weaker and needs to build strength and balance. Pt's denies falls. Pt has a FWW at home. reports that he is able to walk 50ft with FWW. Pt does not have stairs. Treatment Goals Patient/Caregiver Goals To improve strength and balance Prior Functional Status Baseline Function- ADL's Independent Baseline Function- Mobility Independent Current Functional Impairments (Reported) Functional Limitations- ADL's Assist from with ADLs Functional Limitations- Mobility/Gait Needs assist with bed mobility . Pt's reports that he is able to walk, though fatigues quickly. She reports that he takes smaller steps with R LE and demonstrates flexed posture. Pt sleeps inclined on couch secondary to feeding tube precautions. PT-OP-C Subjective Start: 11/28/22 10:27 Freq: Status: Active Protocol: Document 01/07/23 13:46 AM (Rec: 01/07/23 16:46 AM [id number]) OP-PT Subjective Patient Comments Patient Comments Pt reports that he feels more tired than usual today. Pt reports that he continues to have quite a bit of back pain, which makes walking and transfers challenging. PT-OP-D Balance Start: 11/28/22 10:27 Freq: Status: Active Protocol: Document 12/03/22 14:18 AM (Rec: 12/03/22 15:09 AM [id number]) Tinetti Balance Assessment Sitting Balance Sitting Balance Steady, safe Arising from Chair Ability to Arise Able, uses arms to help Attempts to Arise Able, requires >1 attempt Standing Balance Immediate Standing Balance Steady with support Standing Balance Narrow stance w/o support Nudged Response Steady Standing with Eyes Closed Steady Turning Step Pattern Turning 360 Degrees Discontinuous steps Stability Turning 360 Degrees Unsteady, grabs/staggers Sitting Down Sitting Down Uses arms or unsteady Gait and Step Initiation of Gait No hesitancy Right Foot Step Length Does pass stance foot Right Foot Step Height Does not clear floor Left Foot Step Length Does pass stance foot Left Foot Step Height Completely clears floor Step Description Step Symmetry Step length not equal Step Continuity Steps appear continuous Gait Description Path Description Straight Trunk Description No sway but posturing Walking Stance Heels together Scoring and Interpretation Tinetti Composite Score (points) 19 Interpretation of Scores At risk for falls (19-24) Tinetti Impairment Rating from Composite 20 to <40% Impaired (Score 17- Score 22) PT-OP-E Functional Tests Start: 11/28/22 10:27 Freq: Status: Active Protocol: Document 12/29/22 13:42 AM (Rec: 12/29/22 14:21 AM [id number]) Functional Tests 6 Minute Walk Test Distance 370 Device Used FWW Comments close SBA, occasional CGA with corners or with transitions from tile/carpet Tinetti Balance and Gait Assessment Composite Score 19 PT-OP-G Mobility & Gait Start: 11/28/22 10:27 Freq: Status: Active Protocol: Document 11/28/22 10:27 AM (Rec: 11/28/22 17:39 AM [id number]) OP Mobility Evaluation Bed Mobility Rolling Pt able to roll independently from side to side on tx table, though reports that he is unable to roll side to side on bed at home. Supine to and from Sit Pt able to transfer from supine <-> sit on tx table, though slow and reports low back pain. Transfers Sit to Stand CGA for STS. Occasionally requires more than 1 attempt. Use of bryce UE. Bed to Chair Transfers Pt requires cueing to square up in front of surface that he is transfering to. Car Transfers Pt almost missed car seat with transfer from w/c to car seat . CGA required OP Gait Assessment Gait Gait Assistance Required: Contact Guard Assist Distance (Feet) 210 Assistive Devices Assistive Device Gait Belt,Front Wheeled Walker Orthotic/Prosthetic Devices or Brace: No Gait Deviations General Gait Pattern Decreased Stride Length,Flexed Trunk,Narrow Based Gait Factors Limiting Gait Function Factors Limiting Gait Function Decreased Activity Tolerance, Decreased Strength,Limited Range of Motion,Pain,Poor Balance Comments Gait Comments Pt demonstrated decreased stride length when fatigued. reports that he typically has a decreased R stride compared to L, though was able to demonstrate symmetry with gait today. PT-OP-J Posture/Palpation/Skin Start: 11/28/22 10:27 Freq: Status: Active Protocol: Document 11/28/22 10:27 AM (Rec: 11/28/22 17:39 AM [id number]) Posture Evaluation Position Standing Head/C-Spine Posture Forward Head L-Spine Posture Flexed Shoulder Posture (L) Forward,(R) Forward PT-OP-K Range of Motion Start: 11/28/22 10:27 Freq: Status: Active Protocol: Document 11/28/22 10:27 AM (Rec: 11/28/22 17:39 AM [id number]) Hip Goniometric Range of Motion Hip Right Passive Comments R hamstring moderately limited Left Passive Comments L hamstring with moderate limitations PT-OP-M Strength Start: 11/28/22 10:27 Freq: Status: Active Protocol: Document 11/28/22 10:27 AM (Rec: 11/28/22 17:39 AM [id number]) Hip Strength Hip Manual Muscle Testing Right Flexion (L2) 4- Good- Extension (S1) 4- Good- Abduction 4- Good- Adduction 4- Good- Left Flexion (L2) 4- Good- Extension (S1) 4- Good- Abduction 4- Good- Adduction 4- Good- Knee Strength Knee Manual Muscle Testing Right Flexion (S2) 4- Good- Extension (L3) 4- Good- Left Flexion (S2) 4- Good- Extension (L3) 4- Good- Ankle/Foot Strength Ankle and Foot Manual Muscle Testing Right Dorsiflexion (L4) 4- Good- Plantarflexion (S1) 4- Good- Left Dorsiflexion (L4) 4- Good- Plantarflexion (S1) 4- Good- PT-OP-Q Treatments Start: 11/28/22 10:27 Freq: Status: Active Protocol: Document 01/07/23 13:46 AM (Rec: 01/07/23 17:03 AM [id number]) Therapeutic Exercises Supine Exercises Resisted trunk rotation Supine Exercise Name Resisted trunk rotation in hooklying position. Side bilateral Comments cues for abdominal stab. Resisted dowel extension Equipment Used Blue TB and dowel Reps/Minutes x10 Comments cues for abdominal control Abdominal marching Side bilateral Reps/Minutes x20 BKFO Side bilateral Reps/Minutes x10 Gait Training Gait Activity Ambulation Device Used FWW Level of Assistance CGA Distance/Duration 2x100 ft Comments cues for posture and FWW placement PT-OP-T Assessment and Plan Start: 11/28/22 10:27 Freq: Status: Active Protocol: Document 01/07/23 13:46 AM (Rec: 01/07/23 16:46 AM [id number]) Physical Therapy Assessment Goals Tinetti Impairment Pt with score of 19 on Tinetti . Short Term Goal (STG) Pt with score of 22 on Tinetti . 12/29/22: Pt with score of 19 on Tinnetti. STG Duration 01/02/23 Ssrs Developer Goal (LTG) Pt with score of 25 on Tinetti . LTG Duration 02/06/23 Strength Impairment Pt with LE strength grossly at 4-/5. Short Term Goal (STG) Pt with strength grossly at 4/ 5. 12/29/22: Pt with LE strength grossly from 4-/5 to 4/5. Progressing towards goal. STG Duration 01/02/23 Ssrs Developer Goal (LTG) PT with LE strength grossly at 4+/5 LTG Duration 02/06/23 HEP Ssrs Developer Goal (LTG) Pt independent with HEP. LTG Duration 02/06/23 Bed mobility Impairment Pt unable to roll in bed at home or transfer from supine to sit without assist from . Short Term Goal (STG) Pt able to roll and transfer from supine-sit without assist at bed at home. STG Duration 01/02/23 Gait Impairment Pt able to walk 210 ft before need to sit secondary to fatigue. Pt able to walk 361 ft in 6 MWT. Short Term Goal (STG) Pt able to ambulate 500 ft before need to sit secondary to fatigue. 12/19/22: progressed 100ft c/ fww close SBA, 16, 75 ft c/ trekpoles Min A. 12/29/22: Pt able to walk 370ft before need to sit secondary to fatigue. Pt able to walk 370 ft during 6MWT with FWW. STG Duration 01/02/23 progressing 12/19/22 Ssrs Developer Goal (LTG) Pt able to ambulate 1000ft before need to sit secondary to fatigue. LTG Duration 02/06/23 Assessment Summary Assessment Pt required Mod A and cueing with log roll. Pt demonstrates limitations at bryce HS. Pt with increased low back symptoms with trunk flexion in unloaded position. Pt required cueing for lumbopelvic control with table exercises. Pt continues to require cueing for posture and FWW placement during gait to decrease trunk flexion. Physical Therapy Plan Frequency and Duration Frequency of Treatment 2x/Week Duration of treatment (weeks) 10 Plan of Care Start Date 11/28/22 Plan of Care End Date 02/06/23 Therapeutic Interventions Therapeutic Interventions Balance Training,Coordination Training,Gait Training,Home Exercise Program,Joint Mobilizations,Manual Therapy, Neuromuscular Re-education, Patient/Caregiver Education, Self-Care/Home Management,Soft Tissue Mobilization,Taping, Therapeutic Activities, Therapeutic Exercises Modalities Cold Pack/Ice Massage,Electric Stimulation,Hot Packs, Ultrasound Next Visit Focus/Plan Next Note Type Progress Note Next Visit Plan Check if brought 4WW, added ski's (warn out tennsi balls) to FWW (suggested son last tx) . POC: add trunk stabilization exercises, assess log roll. POC: Continue added resistance to LE PREs and progress into higher level balance challenges.
--- NOTE | 2023-01-09 14:19 | PT.OTN ---
Current Diagnoses Other cerebral infarction due to occlusion or stenosis of small artery (01/09/23) Weakness (01/09/23) Physical Therapy Treatment Note PT-OP-A Visit Information Start: 11/28/22 10:27 Freq: Status: Active Protocol: Document 01/09/23 14:19 AM (Rec: 01/09/23 16:40 AM [id number]) Out-Patient Physical Therapy Visit Information Visit Information Visit Type Treatment Note Visit Start Time 14:19 Visit Stop Time 15:04 Total Visit Minutes 45 Visit Number 13 Precautions Precautions *Fall risk *Feeding tube (gait belt at chest above tubing). *Caution thin liquids, sips water ok (12/19/22). PT-OP-B Current Condition Start: 11/28/22 10:27 Freq: Status: Active Protocol: Document 11/28/22 10:27 AM (Rec: 11/28/22 13:00 AM [id number]) Current Condition History of Current Condition History of Current Condition 82-year-old male with history of rheumatoid arthritis presenting with his 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 Pt has had multiple CVA one in June and 1 in July. Pt has mild expressive apasia and cognitive impairment. Following inpatient, pt went to SNF for 4 days, though had a heart attack, ketoacidosis, and another small stroke. Pt has trouble swallowing, therefore has a GI tube. Pt had lost a lot of weight, though gaining back now. reports that he is much weaker and needs to build strength and balance. Pt's denies falls. Pt has a FWW at home. reports that he is able to walk 50ft with FWW. Pt does not have stairs. Treatment Goals Patient/Caregiver Goals To improve strength and balance Prior Functional Status Baseline Function- ADL's Independent Baseline Function- Mobility Independent Current Functional Impairments (Reported) Functional Limitations- ADL's Assist from with ADLs Functional Limitations- Mobility/Gait Needs assist with bed mobility . Pt's reports that he is able to walk, though fatigues quickly. She reports that he takes smaller steps with R LE and demonstrates flexed posture. Pt sleeps inclined on couch secondary to feeding tube precautions. PT-OP-C Subjective Start: 11/28/22 10:27 Freq: Status: Active Protocol: Document 01/09/23 14:19 AM (Rec: 01/09/23 16:40 AM [id number]) OP-PT Subjective Patient Comments Patient Comments Pt reports that his back continues to be sore with prolonged standing. PT discussed this with pt's following tx session. She reports that he has a new prescription to address LBP, but she is not sure what the name is. She thinks that it is a muscle relaxer. Pt's reports that pt saw his neurologist and they would like him to continue his therapies. PT discussed skis for the walker secondary to the tennis balls wearing out quickly. She is concerned that they will also wear out just as quick. PT-OP-D Balance Start: 11/28/22 10:27 Freq: Status: Active Protocol: Document 12/03/22 14:18 AM (Rec: 12/03/22 15:09 AM [id number]) Tinetti Balance Assessment Sitting Balance Sitting Balance Steady, safe Arising from Chair Ability to Arise Able, uses arms to help Attempts to Arise Able, requires >1 attempt Standing Balance Immediate Standing Balance Steady with support Standing Balance Narrow stance w/o support Nudged Response Steady Standing with Eyes Closed Steady Turning Step Pattern Turning 360 Degrees Discontinuous steps Stability Turning 360 Degrees Unsteady, grabs/staggers Sitting Down Sitting Down Uses arms or unsteady Gait and Step Initiation of Gait No hesitancy Right Foot Step Length Does pass stance foot Right Foot Step Height Does not clear floor Left Foot Step Length Does pass stance foot Left Foot Step Height Completely clears floor Step Description Step Symmetry Step length not equal Step Continuity Steps appear continuous Gait Description Path Description Straight Trunk Description No sway but posturing Walking Stance Heels together Scoring and Interpretation Tinetti Composite Score (points) 19 Interpretation of Scores At risk for falls (19-24) Tinetti Impairment Rating from Composite 20 to <40% Impaired (Score 17- Score 22) PT-OP-E Functional Tests Start: 11/28/22 10:27 Freq: Status: Active Protocol: Document 01/09/23 14:19 AM (Rec: 01/09/23 16:40 AM [id number]) Functional Tests 6 Minute Walk Test Distance 380 Device Used FWW PT-OP-G Mobility & Gait Start: 11/28/22 10:27 Freq: Status: Active Protocol: Document 11/28/22 10:27 AM (Rec: 11/28/22 17:39 AM [id number]) OP Mobility Evaluation Bed Mobility Rolling Pt able to roll independently from side to side on tx table, though reports that he is unable to roll side to side on bed at home. Supine to and from Sit Pt able to transfer from supine <-> sit on tx table, though slow and reports low back pain. Transfers Sit to Stand CGA for STS. Occasionally requires more than 1 attempt. Use of bryce UE. Bed to Chair Transfers Pt requires cueing to square up in front of surface that he is transfering to. Car Transfers Pt almost missed car seat with transfer from w/c to car seat . CGA required OP Gait Assessment Gait Gait Assistance Required: Contact Guard Assist Distance (Feet) 210 Assistive Devices Assistive Device Gait Belt,Front Wheeled Walker Orthotic/Prosthetic Devices or Brace: No Gait Deviations General Gait Pattern Decreased Stride Length,Flexed Trunk,Narrow Based Gait Factors Limiting Gait Function Factors Limiting Gait Function Decreased Activity Tolerance, Decreased Strength,Limited Range of Motion,Pain,Poor Balance Comments Gait Comments Pt demonstrated decreased stride length when fatigued. reports that he typically has a decreased R stride compared to L, though was able to demonstrate symmetry with gait today. PT-OP-J Posture/Palpation/Skin Start: 11/28/22 10:27 Freq: Status: Active Protocol: Document 11/28/22 10:27 AM (Rec: 11/28/22 17:39 AM [id number]) Posture Evaluation Position Standing Head/C-Spine Posture Forward Head L-Spine Posture Flexed Shoulder Posture (L) Forward,(R) Forward PT-OP-K Range of Motion Start: 11/28/22 10:27 Freq: Status: Active Protocol: Document 11/28/22 10:27 AM (Rec: 11/28/22 17:39 AM [id number]) Hip Goniometric Range of Motion Hip Right Passive Comments R hamstring moderately limited Left Passive Comments L hamstring with moderate limitations PT-OP-M Strength Start: 11/28/22 10:27 Freq: Status: Active Protocol: Document 11/28/22 10:27 AM (Rec: 11/28/22 17:39 AM [id number]) Hip Strength Hip Manual Muscle Testing Right Flexion (L2) 4- Good- Extension (S1) 4- Good- Abduction 4- Good- Adduction 4- Good- Left Flexion (L2) 4- Good- Extension (S1) 4- Good- Abduction 4- Good- Adduction 4- Good- Knee Strength Knee Manual Muscle Testing Right Flexion (S2) 4- Good- Extension (L3) 4- Good- Left Flexion (S2) 4- Good- Extension (L3) 4- Good- Ankle/Foot Strength Ankle and Foot Manual Muscle Testing Right Dorsiflexion (L4) 4- Good- Plantarflexion (S1) 4- Good- Left Dorsiflexion (L4) 4- Good- Plantarflexion (S1) 4- Good- PT-OP-Q Treatments Start: 11/28/22 10:27 Freq: Status: Active Protocol: Document 01/09/23 14:19 AM (Rec: 01/09/23 16:40 AM [id number]) Gym Equipment Shuttle Recovery Unilateral squat Details manual cueing for R LE to decrease valgus and cue for TKE at knee Resistance 37# (1 teal) Shuttle Recovery Platform Stable Reps/Time 2x30 sec (approx 15 reps) Bilateral squat Details cues for TKE, decreased speed, decrease R knee valgus Resistance 75 (all teal) Shuttle Recovery Platform Stable Reps/Time 2x30 sec (approx 15 reps) Therapeutic Exercises Sitting Exercises STS Equipment Used hi-low table at 21.5 in Reps/Minutes 1x10, 1x8 Comments cued for slow descend Standing Exercises Shoulder extension Standing Exercise Name For abdominal activation and posture in standing. Side bilateral Resistance green Reps/Minutes 2x10 Other Exercises Pallof press Side bilateral Resistance Baker TB Reps/Minutes x10 Comments CGA Gait Training Gait Activity 6MWT Device Used FWW Distance/Duration 380 ft Ambulation Device Used FWW Level of Assistance CGA Distance/Duration 2x100 ft Comments cues for posture and FWW placement, pt cued to not tip FWW with turning for safety PT-OP-T Assessment and Plan Start: 11/28/22 10:27 Freq: Status: Active Protocol: Document 01/09/23 14:19 AM (Rec: 01/09/23 16:40 AM [id number]) Physical Therapy Assessment Goals Tinetti Impairment Pt with score of 19 on Tinetti . Short Term Goal (STG) Pt with score of 22 on Tinetti . 12/29/22: Pt with score of 19 on Tinnetti. STG Duration 01/02/23 Residential Goal (LTG) Pt with score of 25 on Tinetti . LTG Duration 02/06/23 Strength Impairment Pt with LE strength grossly at 4-/5. Short Term Goal (STG) Pt with strength grossly at 4/ 5. 12/29/22: Pt with LE strength grossly from 4-/5 to 4/5. Progressing towards goal. STG Duration 01/02/23 Cook Short Order Goal (LTG) PT with LE strength grossly at 4+/5 LTG Duration 02/06/23 HEP Residential Goal (LTG) Pt independent with HEP. LTG Duration 02/06/23 Bed mobility Impairment Pt unable to roll in bed at home or transfer from supine to sit without assist from . Short Term Goal (STG) Pt able to roll and transfer from supine-sit without assist at bed at home. STG Duration 01/02/23 Gait Impairment Pt able to walk 210 ft before need to sit secondary to fatigue. Pt able to walk 361 ft in 6 MWT. Short Term Goal (STG) Pt able to ambulate 500 ft before need to sit secondary to fatigue. 12/19/22: progressed 100ft c/ fww close SBA, 16, 75 ft c/ trekpoles Min A. 12/29/22: Pt able to walk 370ft before need to sit secondary to fatigue. Pt able to walk 370 ft during 6MWT with FWW. 01/09/23: Pt able to walk 385ft before need to sit. STG Duration 01/02/23 progressing 12/19/22 Residential Goal (LTG) Pt able to ambulate 1000ft before need to sit secondary to fatigue. LTG Duration 02/06/23 Physical Therapy Plan Frequency and Duration Frequency of Treatment 2x/Week Duration of treatment (weeks) 10 Plan of Care Start Date 11/28/22 Plan of Care End Date 02/06/23 Therapeutic Interventions Therapeutic Interventions Balance Training,Coordination Training,Gait Training,Home Exercise Program,Joint Mobilizations,Manual Therapy, Neuromuscular Re-education, Patient/Caregiver Education, Self-Care/Home Management,Soft Tissue Mobilization,Taping, Therapeutic Activities, Therapeutic Exercises Modalities Cold Pack/Ice Massage,Electric Stimulation,Hot Packs, Ultrasound Next Visit Focus/Plan Next Note Type Treatment Note Next Visit Plan continue trunk stabilization exercises, cont log roll edu. POC: Continue added resistance to LE PREs and progress into higher level balance challenges.
--- NOTE | 2023-01-19 15:37 | PT.OTN ---
Current Diagnoses Other cerebral infarction due to occlusion or stenosis of small artery (01/19/23) Weakness (01/19/23) Physical Therapy Treatment Note PT-OP-A Visit Information Start: 11/28/22 10:27 Freq: Status: Active Protocol: Document 01/19/23 14:34 NM (Rec: 01/19/23 15:37 NM [id number]) Out-Patient Physical Therapy Visit Information Visit Information Visit Type Treatment Note Visit Start Time 14:30 Visit Stop Time 15:15 Total Visit Minutes 45 Visit Number 14 Precautions Precautions *Fall risk *Feeding tube (gait belt at chest above tubing). *Caution thin liquids, sips water ok (12/19/22). PT-OP-B Current Condition Start: 11/28/22 10:27 Freq: Status: Active Protocol: Document 11/28/22 10:27 AM (Rec: 11/28/22 13:00 AM [id number]) Current Condition History of Current Condition History of Current Condition 82-year-old male with history of rheumatoid arthritis presenting with his 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 Pt has had multiple CVA one in June and 1 in July. Pt has mild expressive apasia and cognitive impairment. Following inpatient, pt went to SNF for 4 days, though had a heart attack, ketoacidosis, and another small stroke. Pt has trouble swallowing, therefore has a GI tube. Pt had lost a lot of weight, though gaining back now. reports that he is much weaker and needs to build strength and balance. Pt's denies falls. Pt has a FWW at home. reports that he is able to walk 50ft with FWW. Pt does not have stairs. Treatment Goals Patient/Caregiver Goals To improve strength and balance Prior Functional Status Baseline Function- ADL's Independent Baseline Function- Mobility Independent Current Functional Impairments (Reported) Functional Limitations- ADL's Assist from with ADLs Functional Limitations- Mobility/Gait Needs assist with bed mobility . Pt's reports that he is able to walk, though fatigues quickly. She reports that he takes smaller steps with R LE and demonstrates flexed posture. Pt sleeps inclined on couch secondary to feeding tube precautions. PT-OP-C Subjective Start: 11/28/22 10:27 Freq: Status: Active Protocol: Document 01/19/23 14:34 NM (Rec: 01/19/23 15:37 NM [id number]) OP-PT Subjective Patient Comments Patient Comments Pt reports that he has a sore back, but he doing well and not too tired today. He does his exercises 2x/wk. PT-OP-D Balance Start: 11/28/22 10:27 Freq: Status: Active Protocol: Document 12/03/22 14:18 AM (Rec: 12/03/22 15:09 AM [id number]) Tinetti Balance Assessment Sitting Balance Sitting Balance Steady, safe Arising from Chair Ability to Arise Able, uses arms to help Attempts to Arise Able, requires >1 attempt Standing Balance Immediate Standing Balance Steady with support Standing Balance Narrow stance w/o support Nudged Response Steady Standing with Eyes Closed Steady Turning Step Pattern Turning 360 Degrees Discontinuous steps Stability Turning 360 Degrees Unsteady, grabs/staggers Sitting Down Sitting Down Uses arms or unsteady Gait and Step Initiation of Gait No hesitancy Right Foot Step Length Does pass stance foot Right Foot Step Height Does not clear floor Left Foot Step Length Does pass stance foot Left Foot Step Height Completely clears floor Step Description Step Symmetry Step length not equal Step Continuity Steps appear continuous Gait Description Path Description Straight Trunk Description No sway but posturing Walking Stance Heels together Scoring and Interpretation Tinetti Composite Score (points) 19 Interpretation of Scores At risk for falls (19-24) Tinetti Impairment Rating from Composite 20 to <40% Impaired (Score 17- Score 22) PT-OP-E Functional Tests Start: 11/28/22 10:27 Freq: Status: Active Protocol: Document 01/09/23 14:19 AM (Rec: 01/09/23 16:40 AM [id number]) Functional Tests 6 Minute Walk Test Distance 380 Device Used FWW PT-OP-G Mobility & Gait Start: 11/28/22 10:27 Freq: Status: Active Protocol: Document 11/28/22 10:27 AM (Rec: 11/28/22 17:39 AM [id number]) OP Mobility Evaluation Bed Mobility Rolling Pt able to roll independently from side to side on tx table, though reports that he is unable to roll side to side on bed at home. Supine to and from Sit Pt able to transfer from supine <-> sit on tx table, though slow and reports low back pain. Transfers Sit to Stand CGA for STS. Occasionally requires more than 1 attempt. Use of bryce UE. Bed to Chair Transfers Pt requires cueing to square up in front of surface that he is transfering to. Car Transfers Pt almost missed car seat with transfer from w/c to car seat . CGA required OP Gait Assessment Gait Gait Assistance Required: Contact Guard Assist Distance (Feet) 210 Assistive Devices Assistive Device Gait Belt,Front Wheeled Walker Orthotic/Prosthetic Devices or Brace: No Gait Deviations General Gait Pattern Decreased Stride Length,Flexed Trunk,Narrow Based Gait Factors Limiting Gait Function Factors Limiting Gait Function Decreased Activity Tolerance, Decreased Strength,Limited Range of Motion,Pain,Poor Balance Comments Gait Comments Pt demonstrated decreased stride length when fatigued. reports that he typically has a decreased R stride compared to L, though was able to demonstrate symmetry with gait today. PT-OP-J Posture/Palpation/Skin Start: 11/28/22 10:27 Freq: Status: Active Protocol: Document 11/28/22 10:27 AM (Rec: 11/28/22 17:39 AM [id number]) Posture Evaluation Position Standing Head/C-Spine Posture Forward Head L-Spine Posture Flexed Shoulder Posture (L) Forward,(R) Forward PT-OP-K Range of Motion Start: 11/28/22 10:27 Freq: Status: Active Protocol: Document 11/28/22 10:27 AM (Rec: 11/28/22 17:39 AM [id number]) Hip Goniometric Range of Motion Hip Right Passive Comments R hamstring moderately limited Left Passive Comments L hamstring with moderate limitations PT-OP-M Strength Start: 11/28/22 10:27 Freq: Status: Active Protocol: Document 11/28/22 10:27 AM (Rec: 11/28/22 17:39 AM [id number]) Hip Strength Hip Manual Muscle Testing Right Flexion (L2) 4- Good- Extension (S1) 4- Good- Abduction 4- Good- Adduction 4- Good- Left Flexion (L2) 4- Good- Extension (S1) 4- Good- Abduction 4- Good- Adduction 4- Good- Knee Strength Knee Manual Muscle Testing Right Flexion (S2) 4- Good- Extension (L3) 4- Good- Left Flexion (S2) 4- Good- Extension (L3) 4- Good- Ankle/Foot Strength Ankle and Foot Manual Muscle Testing Right Dorsiflexion (L4) 4- Good- Plantarflexion (S1) 4- Good- Left Dorsiflexion (L4) 4- Good- Plantarflexion (S1) 4- Good- PT-OP-Q Treatments Start: 11/28/22 10:27 Freq: Status: Active Protocol: Document 01/19/23 14:34 NM (Rec: 01/19/23 15:37 NM [id number]) Gym Equipment Shuttle Recovery Unilateral squat Details manual cueing for R LE to decrease valgus and cue for TKE at knee Resistance 37# (1 navy) Shuttle Recovery Platform Stable Reps/Time 2x30 sec (approx 15 reps) Bilateral squat Details cues for TKE, decreased speed, decrease R knee valgus Resistance 75 (2 teal) Shuttle Recovery Platform Stable Reps/Time 2x30 sec (approx 15 reps) Gait Training Gait Activity Ambulation Device Used FWW Level of Assistance CGA Distance/Duration 200 ft, 2x80 ft Comments cues for R foot clearance to prevent shuffling, step length , posture, placement of FWW. Pt leans forward on FWW to decrease back pain Neuro Re-Education Treatment Balance Activities NBOS Surface stable Equipment //bars Reps/Duration 2x10 Comments Reaching for targets bilaterally. Cues for pt to weight shift and adjust JIGAR rather than lean. Demos mod sway stride stance Details 1. stride, 2. tandem Surface stable Equipment //bars Reps/Duration 2x10 ea Comments Reaching for targets bilaterally. Cues for pt to weight shift and adjust JIGAR rather than lean. More difficulty with RLE in front than LLE. Requires UE to correct PT-OP-T Assessment and Plan Start: 11/28/22 10:27 Freq: Status: Active Protocol: Document 01/19/23 14:34 NM (Rec: 01/19/23 15:37 NM [id number]) Physical Therapy Assessment Rehab Potential Rehabilitation Potential Good Evaluation Complexity Number of Personal Factors/Comorbidities 3 or More Number of Body Systems Impaired 4 or More Clinical Presentation at Evaluation Stable Impairments Impairments Activity Tolerance,Balance, Coordination,Functional Activities,Functional Mobility ,Gait,Pain,Posture,ROM,Soft Tissue Mobility,Strength, Transfers Goals Tinetti Impairment Pt with score of 19 on Tinetti . Short Term Goal (STG) Pt with score of 22 on Tinetti . 12/29/22: Pt with score of 19 on Tinnetti. STG Duration 01/02/23 Deputy Coroner Goal (LTG) Pt with score of 25 on Tinetti . LTG Duration 02/06/23 Strength Impairment Pt with LE strength grossly at 4-/5. Short Term Goal (STG) Pt with strength grossly at 4/ 5. 12/29/22: Pt with LE strength grossly from 4-/5 to 4/5. Progressing towards goal. STG Duration 01/02/23 Deputy Coroner Goal (LTG) PT with LE strength grossly at 4+/5 LTG Duration 02/06/23 HEP Retirement Goal (LTG) Pt independent with HEP. LTG Duration 02/06/23 Bed mobility Impairment Pt unable to roll in bed at home or transfer from supine to sit without assist from . Short Term Goal (STG) Pt able to roll and transfer from supine-sit without assist at bed at home. STG Duration 01/02/23 Gait Impairment Pt able to walk 210 ft before need to sit secondary to fatigue. Pt able to walk 361 ft in 6 MWT. Short Term Goal (STG) Pt able to ambulate 500 ft before need to sit secondary to fatigue. 12/19/22: progressed 100ft c/ fww close SBA, 16, 75 ft c/ trekpoles Min A. 12/29/22: Pt able to walk 370ft before need to sit secondary to fatigue. Pt able to walk 370 ft during 6MWT with FWW. 01/09/23: Pt able to walk 385ft before need to sit. STG Duration 01/02/23 progressing 12/19/22 Deputy Coroner Goal (LTG) Pt able to ambulate 1000ft before need to sit secondary to fatigue. LTG Duration 02/06/23 Assessment Summary Assessment Pt tolerated treatment fair. He requires mod A and moderate cuing to complete log roll and transfers safely. Pt able to ambulate 200 ft with FWW and moderate cues for safety and foot clearance. Pt tends to shuffle RLE and take a shorter step. He requires consistent cues for posture and FWW placement for safety as pt attempts to ambulate with the FWW too far in front. Tmt partially focused on strengthening BLE on leg press today; progressed resistance, which pt tolerated well but reported was difficult. Balance training today emphasizing multidirectional reaching with a weight shift to adjust JIGAR; will re-attempt in future sessions. Pt would benefit from skilled PT to address impairments in BLE strength and mobility, gait, balance, and endurance for safety during ambulation, decrease fall risk, and to decrease caregiver burden. Physical Therapy Plan Frequency and Duration Frequency of Treatment 2x/Week Duration of treatment (weeks) 10 Plan of Care Start Date 11/28/22 Plan of Care End Date 02/06/23 Therapeutic Interventions Therapeutic Interventions Balance Training,Coordination Training,Gait Training,Home Exercise Program,Joint Mobilizations,Manual Therapy, Neuromuscular Re-education, Patient/Caregiver Education, Self-Care/Home Management,Soft Tissue Mobilization,Taping, Therapeutic Activities, Therapeutic Exercises Modalities Cold Pack/Ice Massage,Electric Stimulation,Hot Packs, Ultrasound Next Visit Focus/Plan Next Note Type Treatment Note Next Visit Plan Continue LE strengthening and trunk stabilization exercises, cont transfer/log roll edu. POC: Continue added resistance to LE PREs and progress into higher level balance challenges.
--- NOTE | 2023-01-21 15:54 | PT.OTN ---
Current Diagnoses Other cerebral infarction due to occlusion or stenosis of small artery (01/21/23) Weakness (01/21/23) Physical Therapy Treatment Note PT-OP-A Visit Information Start: 11/28/22 10:27 Freq: Status: Active Protocol: Document 01/21/23 15:40 NM (Rec: 01/21/23 15:54 NM [id number]) Out-Patient Physical Therapy Visit Information Visit Information Visit Type Treatment Note Visit Start Time 14:30 Visit Stop Time 15:15 Total Visit Minutes 45 Visit Number 15 Evaluation Information Evaluation Date 11/28/22 Precautions Precautions *Fall risk *Feeding tube (gait belt at chest above tubing). *Caution thin liquids, sips water ok (12/19/22). PT-OP-B Current Condition Start: 11/28/22 10:27 Freq: Status: Active Protocol: Document 11/28/22 10:27 AM (Rec: 11/28/22 13:00 AM [id number]) Current Condition History of Current Condition History of Current Condition 82-year-old male with history of rheumatoid arthritis presenting with his 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 Pt has had multiple CVA one in June and 1 in July. Pt has mild expressive apasia and cognitive impairment. Following inpatient, pt went to SNF for 4 days, though had a heart attack, ketoacidosis, and another small stroke. Pt has trouble swallowing, therefore has a GI tube. Pt had lost a lot of weight, though gaining back now. reports that he is much weaker and needs to build strength and balance. Pt's denies falls. Pt has a FWW at home. reports that he is able to walk 50ft with FWW. Pt does not have stairs. Treatment Goals Patient/Caregiver Goals To improve strength and balance Prior Functional Status Baseline Function- ADL's Independent Baseline Function- Mobility Independent Current Functional Impairments (Reported) Functional Limitations- ADL's Assist from with ADLs Functional Limitations- Mobility/Gait Needs assist with bed mobility . Pt's reports that he is able to walk, though fatigues quickly. She reports that he takes smaller steps with R LE and demonstrates flexed posture. Pt sleeps inclined on couch secondary to feeding tube precautions. PT-OP-C Subjective Start: 11/28/22 10:27 Freq: Status: Active Protocol: Document 01/21/23 15:40 NM (Rec: 01/21/23 15:54 NM [id number]) OP-PT Subjective Patient Comments Patient Comments Pt reports that he is doing well, no soreness or back pain after last session. He states that he is tired today. PT-OP-D Balance Start: 11/28/22 10:27 Freq: Status: Active Protocol: Document 12/03/22 14:18 AM (Rec: 12/03/22 15:09 AM [id number]) Tinetti Balance Assessment Sitting Balance Sitting Balance Steady, safe Arising from Chair Ability to Arise Able, uses arms to help Attempts to Arise Able, requires >1 attempt Standing Balance Immediate Standing Balance Steady with support Standing Balance Narrow stance w/o support Nudged Response Steady Standing with Eyes Closed Steady Turning Step Pattern Turning 360 Degrees Discontinuous steps Stability Turning 360 Degrees Unsteady, grabs/staggers Sitting Down Sitting Down Uses arms or unsteady Gait and Step Initiation of Gait No hesitancy Right Foot Step Length Does pass stance foot Right Foot Step Height Does not clear floor Left Foot Step Length Does pass stance foot Left Foot Step Height Completely clears floor Step Description Step Symmetry Step length not equal Step Continuity Steps appear continuous Gait Description Path Description Straight Trunk Description No sway but posturing Walking Stance Heels together Scoring and Interpretation Tinetti Composite Score (points) 19 Interpretation of Scores At risk for falls (19-24) Tinetti Impairment Rating from Composite 20 to <40% Impaired (Score 17- Score 22) PT-OP-E Functional Tests Start: 11/28/22 10:27 Freq: Status: Active Protocol: Document 01/09/23 14:19 AM (Rec: 01/09/23 16:40 AM [id number]) Functional Tests 6 Minute Walk Test Distance 380 Device Used FWW PT-OP-G Mobility & Gait Start: 11/28/22 10:27 Freq: Status: Active Protocol: Document 11/28/22 10:27 AM (Rec: 11/28/22 17:39 AM [id number]) OP Mobility Evaluation Bed Mobility Rolling Pt able to roll independently from side to side on tx table, though reports that he is unable to roll side to side on bed at home. Supine to and from Sit Pt able to transfer from supine <-> sit on tx table, though slow and reports low back pain. Transfers Sit to Stand CGA for STS. Occasionally requires more than 1 attempt. Use of bryce UE. Bed to Chair Transfers Pt requires cueing to square up in front of surface that he is transfering to. Car Transfers Pt almost missed car seat with transfer from w/c to car seat . CGA required OP Gait Assessment Gait Gait Assistance Required: Contact Guard Assist Distance (Feet) 210 Assistive Devices Assistive Device Gait Belt,Front Wheeled Walker Orthotic/Prosthetic Devices or Brace: No Gait Deviations General Gait Pattern Decreased Stride Length,Flexed Trunk,Narrow Based Gait Factors Limiting Gait Function Factors Limiting Gait Function Decreased Activity Tolerance, Decreased Strength,Limited Range of Motion,Pain,Poor Balance Comments Gait Comments Pt demonstrated decreased stride length when fatigued. reports that he typically has a decreased R stride compared to L, though was able to demonstrate symmetry with gait today. PT-OP-J Posture/Palpation/Skin Start: 11/28/22 10:27 Freq: Status: Active Protocol: Document 11/28/22 10:27 AM (Rec: 11/28/22 17:39 AM [id number]) Posture Evaluation Position Standing Head/C-Spine Posture Forward Head L-Spine Posture Flexed Shoulder Posture (L) Forward,(R) Forward PT-OP-K Range of Motion Start: 11/28/22 10:27 Freq: Status: Active Protocol: Document 11/28/22 10:27 AM (Rec: 11/28/22 17:39 AM [id number]) Hip Goniometric Range of Motion Hip Right Passive Comments R hamstring moderately limited Left Passive Comments L hamstring with moderate limitations PT-OP-M Strength Start: 11/28/22 10:27 Freq: Status: Active Protocol: Document 11/28/22 10:27 AM (Rec: 11/28/22 17:39 AM [id number]) Hip Strength Hip Manual Muscle Testing Right Flexion (L2) 4- Good- Extension (S1) 4- Good- Abduction 4- Good- Adduction 4- Good- Left Flexion (L2) 4- Good- Extension (S1) 4- Good- Abduction 4- Good- Adduction 4- Good- Knee Strength Knee Manual Muscle Testing Right Flexion (S2) 4- Good- Extension (L3) 4- Good- Left Flexion (S2) 4- Good- Extension (L3) 4- Good- Ankle/Foot Strength Ankle and Foot Manual Muscle Testing Right Dorsiflexion (L4) 4- Good- Plantarflexion (S1) 4- Good- Left Dorsiflexion (L4) 4- Good- Plantarflexion (S1) 4- Good- PT-OP-Q Treatments Start: 11/28/22 10:27 Freq: Status: Active Protocol: Document 01/21/23 15:40 NM (Rec: 01/21/23 15:54 NM [id number]) Gait Training Gait Activity Ambulation Device Used FWW Level of Assistance CGA Distance/Duration 200 ft, 2x50 ft Comments cues for B foot clearance to prevent shuffling, R step length equal to L, placement of FWW, look up from the ground Neuro Re-Education Treatment Balance Activities Stepping Details Narrow > step 1. fwd, 2. lateral Surface stable Equipment // bars ( no UE support, CGA) Reps/Duration 2x10 ea Comments 1. Stepping fwd from normal stance, reaching fwd + weight shift to grab phillips bag > toss fwd 2. Stepping laterally from normal stance, reaching laterally to grab phillips bag > toss fwd 3. Stepping fwd/laterally/ diagonal randomally to hit balloon in air with R or L hand as specified by PT Hurdles Details 3 hurdles x3 ft apart Surface stable Equipment // bars Reps/Duration 3 reps ea Comments CGA with gait belt. Cues for pt to step closer to adela prior to stepping over adela. Focus on single leg stability and narrow Paris[place] when standing 2 legs with 1 UE assistance. 1. fwd, 2. lateral stride stance Details Stride stance Surface stable Equipment // bars (no UE support, CGA) Reps/Duration 2x15 ea side Comments Reaching for balloon with ispi UE and contr UE outside PARISA, alternating. PT-OP-T Assessment and Plan Start: 11/28/22 10:27 Freq: Status: Active Protocol: Document 01/21/23 15:40 NM (Rec: 01/21/23 15:54 NM [id number]) Physical Therapy Assessment Rehab Potential Rehabilitation Potential Good Evaluation Complexity Number of Personal Factors/Comorbidities 3 or More Number of Body Systems Impaired 4 or More Clinical Presentation at Evaluation Stable Impairments Impairments Activity Tolerance,Balance, Coordination,Functional Activities,Functional Mobility ,Gait,Pain,Posture,ROM,Soft Tissue Mobility,Strength, Transfers Goals Tinetti Impairment Pt with score of 19 on Tinetti . Short Term Goal (STG) Pt with score of 22 on Tinetti . 12/29/22: Pt with score of 19 on Tinnetti. STG Duration 01/02/23 Accounts Payable Specialist Goal (LTG) Pt with score of 25 on Tinetti . LTG Duration 02/06/23 Strength Impairment Pt with LE strength grossly at 4-/5. Short Term Goal (STG) Pt with strength grossly at 4/ 5. 12/29/22: Pt with LE strength grossly from 4-/5 to 4/5. Progressing towards goal. STG Duration 01/02/23 Accounts Payable Specialist Goal (LTG) PT with LE strength grossly at 4+/5 LTG Duration 02/06/23 [facility] Goal (LTG) Pt independent with HEP. LTG Duration 02/06/23 Bed mobility Impairment Pt unable to roll in bed at home or transfer from supine to sit without assist from . Short Term Goal (STG) Pt able to roll and transfer from supine-sit without assist at bed at home. STG Duration 01/02/23 Gait Impairment Pt able to walk 210 ft before need to sit secondary to fatigue. Pt able to walk 361 ft in 6 MWT. Short Term Goal (STG) Pt able to ambulate 500 ft before need to sit secondary to fatigue. 12/19/22: progressed 100ft c/ fww close SBA, 16, 75 ft c/ trekpoles Min A. 12/29/22: Pt able to walk 370ft before need to sit secondary to fatigue. Pt able to walk 370 ft during 6MWT with FWW. 01/09/23: Pt able to walk 385ft before need to sit. STG Duration 01/02/23 progressing 12/19/22 Prison Goal (LTG) Pt able to ambulate 1000ft before need to sit secondary to fatigue. LTG Duration 02/06/23 Assessment Summary Assessment Pt tolerated treatment well. Tmt focus today on balance, especially with stepping and reaching. Pt requires frequent cues for weight shift before stepping in order to maintain stability; however, he is able to take 1 step fwd/lateral/ diagonal with CGA and maintain balance while reaching for an object. He prefers to use his RLE and RUE to step/reach. Pt demos improved ability to self-correct balance today and seems more aware of activities. Pt continues to shuffle feet when ambulating and has decreased R step length compared to LLE. Pt would benefit from skilled PT to address impairments in BLE strength, gait, and balance to improve safety awareness, decrease fall risk, and decrease caregiver burden. Physical Therapy Plan Frequency and Duration Frequency of Treatment 2x/Week Duration of treatment (weeks) 10 Plan of Care Start Date 11/28/22 Plan of Care End Date 02/06/23 Therapeutic Interventions Therapeutic Interventions Balance Training,Coordination Training,Gait Training,Home Exercise Program,Joint Mobilizations,Manual Therapy, Neuromuscular Re-education, Patient/Caregiver Education, Self-Care/Home Management,Soft Tissue Mobilization,Taping, Therapeutic Activities, Therapeutic Exercises Modalities Cold Pack/Ice Massage,Electric Stimulation,Hot Packs, Ultrasound Next Visit Focus/Plan Next Note Type Treatment Note Next Visit Plan Continue LE strengthening and trunk stabilization exercises, cont transfer/log roll edu. POC: Continue added resistance to LE PREs and progress into higher level balance challenges.
--- OUTSIDE RECORDS SUMMARY | 2023-01-23 15:01 | XMS_ITS ---
Author Name Unknown Organization 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 Name Role Phone Cici Jones MD Primary Care Provider Pcp, Outside Primary Care Provider Unavailabl e Reason for Referral * Rehab (Routine) - Pending Review Specialty Diagnoses / Procedures Referred By Mayra gipson Referred To Contact Diagnoses Cerebrovascular accident (CVA) of left basal ganglia (HCC) Acute cerebral infarction (HCC) Souleymane Park DO [id number] [place] [address] Referral ID Status Reason Start Date Expiration Date V isits Requested Visits Authorized [id number] Pending Review 09/08/2022 09/08/2023 1 1 Scheduling Instructions Referral to: [facility] [address] [place] [id number] Please be aware that while I, as your health care provider, have identified this referral as medically indicated, I cannot guarantee your insurance plan will cover it. I recommend you contact your insurance carrier to make sure this is a covered service they will pay for. * Specialty Visit (Routine) - In Process Specialty Diagnoses / Procedures Referred By Mayra gipson Referred To Contact Diagnoses Type 1 diabetes mellitus without complication (HCC) Souleymane Park DO [address] [id number] [place] [address] [facility] [address] [place] [address] Referral ID Status Reason Start Date Expiration Date V isits Requested Visits Authorized [id number] In Process 09/08/2022 09/08/2023 1 1 Scheduling Instructions Please be aware that while I, as your health care provider, have identified this referral as medically indicated, I cannot guarantee your insurance plan will cover it. I recommend you contact your insurance carrier to make sure this is a covered service they will pay for. * Specialty Visit (Routine) - In Process Specialty Diagnoses / Procedures Referred By Mayra gipson Referred To Contact Diagnoses Pericardial effusion Souleymane Park DO [address] [id number] [place] [address] [facility] [address] [place] [address] Referral ID Status Reason Start Date Expiration Date Visits Requested Visits Authorized [id number] In Process Inpatient 09/08/2022 09/08/2023 1 1 Scheduling Instructions Please be aware that while I, as your health care provider, have identified this referral as medically indicated, I cannot guarantee your insurance plan will cover it. I recommend you contact your insurance carrier to make sure this is a covered service they will pay for. * Specialty Visit (Routine) - Pending Review Specialty Diagnoses / Procedures Referred By Mayra gipson Referred To Contact Diagnoses Cerebrovascular accident (CVA) of left basal ganglia (HCC) Acute cerebral infarction (HCC) Souleymane Park DO [id number] [place] [address] [facility] Stroke [facility] [address] [place] [address] Referral ID Status Reason Start Date Expiration Date V isits Requested Visits Authorized [id number] Pending Review 09/08/2022 09/08/2023 1 1 Scheduling Instructions Please be aware that while I, as your health care provider, have identified this referral as medically indicated, I cannot guarantee your insurance plan will cover it. I recommend you contact your insurance carrier to make sure this is a covered service they will pay for. * Specialty Visit (Routine) - In Process Specialty Diagnoses / Procedures Referred By Contac t Referred To Contact Diagnoses Cerebrovascular accident (CVA) of left basal ganglia (HCC) Acute cerebral infarction (HCC) Souleymane Prak DO [id number] [place] [address] [facility] Stroke [facility] [address] [place] [address] Referral ID Status Reason Start Date Expiration Date V isits Requested Visits Authorized [id number] In Process 09/08/2022 09/08/2023 1 1 Scheduling Instructions Please be aware that while I, as your health care provider, have identified this referral as medically indicated, I cannot guarantee your insurance plan will cover it. I recommend you contact your insurance carrier to make sure this is a covered service they will pay for. * Physical/ Occ/ Speech Therapy (Routine) - Pending Review Specialty Diagnoses / Procedures Referred By Contac t Referred To Contact Diagnoses Cerebrovascular accident (CVA) of left basal ganglia (HCC) Acute cerebral infarction (HCC) Souleymane Park DO [id number] [place] [address] Referral ID Status Reason Start Date Expiration Date V isits Requested Visits Authorized [id number] Pending Review 09/01/2022 09/01/2023 1 1 Scheduling Instructions Referral to: Patient Preference (POS [id number]) Please be aware that while I, as your health care provider, have identified this referral as medically indicated, I cannot guarantee your insurance plan will cover it. I recommend you contact your insurance carrier to make sure this is a covered service they will pay for. * Physical/ Occ/ Speech Therapy (Routine) - Pending Review Specialty Diagnoses / Procedures Referred By Contac t Referred To Contact Diagnoses Cerebrovascular accident (CVA) of left basal ganglia (HCC) Acute cerebral infarction (HCC) Souleymane Park DO [address] [id number] [place] [address] Referral ID Status Reason Start Date Expiration Date V isits Requested Visits Authorized [id number] Pending Review 09/01/2022 09/01/2023 1 1 Scheduling Instructions Referral to: Patient Preference (POS [id number]) Please be aware that while I, as your health care provider, have identified this referral as medically indicated, I cannot guarantee your insurance plan will cover it. I recommend you contact your insurance carrier to make sure this is a covered service they will pay for. * Physical/ Occ/ Speech Therapy (Routine) - Pending Review Specialty Diagnoses / Procedures Referred By Contac t Referred To Contact Diagnoses Cerebrovascular accident (CVA) of left basal ganglia (HCC) Acute cerebral infarction (HCC) Souleymane Park DO [address] [id number] [place] [address] Referral ID Status Reason Start Date Expiration Date V isits Requested Visits Authorized [id number] Pending Review 09/01/2022 09/01/2023 1 1 Scheduling Instructions Referral to: Patient Preference (POS [id number]) Please be aware that while I, as your health care provider, have identified this referral as medically indicated, I cannot guarantee your insurance plan will cover it. I recommend you contact your insurance carrier to make sure this is a covered service they will pay for. Reason for Visit * Auth/Cert (Routine) Specialty Diagnoses / Procedures Referred By Contac t Referred To Contact Diagnoses stroke Referral ID Status Reason Start Date Expiration Date Visits Re quested Visits Authorized [id number] 1 1 Encounter Details Date Type Department Care Team Description 08/27/2022 - 09/12/2022 Hospital Encounter 4W REHAB MEDICINE [address] [place] [address] Souleymane Park DO [address] [id number] [place] [address] Dx: Cerebrovascular accident (CVA) of left basal ganglia (HCC) (Primary Dx) Allergies Active Allergy Reactions Severity Noted Date Comments Shellfish-Derived Products GI:Nausea/vomiting 0 08/21/2022 documented as of this encounter (statuses as of 09/13/2022) Medications Medication Sig Dispensed Refills Start Date End Date Status hydroxychloroqu ine 200 MG tablet Take 1 tablet (200 mg) by mouth 2 times a day. 0 Active rosuvastatin 5 MG tablet Take 1 tablet (5 mg) by mouth daily. 0 Active sulfaSALAzine 500 MG tablet Take 2 tablets (1,000 mg) by mouth 2 times a day. 0 Active aspirin 325 MG tablet Take 1 tablet (325 mg) by mouth daily. 30 tablet 0 3 Active insulin GLARGINE (Lantus) 100 UNIT/ML injection Inject 16 units under the skin every evening. 0 3 Active insulin LISPRO 100 UNIT/ML injection Inject 0-4 units under the skin at bedtime. BEDTIME LOW Correction Insulin Blood sugar = Dose < 200 = DO NOT GIVE CORRECTIONAL INSULIN 200-249 = 2 units 250-299 = 3 units 300-349 = 3 units >349 = recheck blood sugar once now, then give 4 units. For BG > 349, call PROVIDER and recheck BG in 1-2 hours. For BG > 500, send venous blood glucose STAT. 1. Check BG. Even if patient is NPO or not eating, GIVE correction insulin IF indicated by correction scale. 2. If BG is LESS than or equal to 90mg/dL, offer patient juice or a small snack if appropriate. If BG is LESS than or equal to 70 mg/dL, follow Hypoglycemia Protocol. 0 3 Active insulin LISPRO 100 UNIT/ML injection Inject 6 units under the skin 3 times a day before meals. Give a half dose of lispro (3 units) if his blood sugar is between 71-89 0 3 Active insulin LISPRO 100 UNIT/ML injection Inject 0-8 units under the skin 3 times a day before meals. DAYTIME MED Dose CORRECTION Insulin Blood sugar = Dose < 151 = DO NOT GIVE CORRECTIONAL INSULIN 151-199 = 2 units 200-249 = 3 units 250-299 = 5 units 300-349 = 7 units >349 = recheck blood sugar once now, then give 8 units. For BG > 349, call Provider and recheck BG in 1-2 hours. For BG > 500, send venous blood glucose STAT. 1. Check BG before scheduled mealtime. Even if patient is NPO or not eating, GIVE correction insulin IF indicated by correction scale. 2. If POC BG was obtained POST FOOD INTAKE, hold correction insulin dose. If POST FOOD INTAKE BG is GREATER than or equal to 300 mg/dL, call provider for instructions. 3. If BG is LESS than or equal to 70 mg/dL, follow Hypoglycemia Protocol. 0 3 Active glucagon 1 MG injection Inject 1 mg under the skin as needed (for hypoglycemia protocol). 0 3 Active glucagon 1 MG injection Inject 0.5 mg under the skin as needed (for hypoglycemia protocol). 0 3 Active insulin ASPART 100 UNIT/ML injection Inject under the skin. 1 unit per 20 calories with each meal 0 09/13/19 23 Discontinued insulin GLARGINE (Lantus SoloStar) 100 UNIT/ML pen-injector Inject 15 units under the skin at bedtime. 0 09/13/19 23 Discontinued lisinopril 5 MG tablet Take 1 tablet (5 mg) by mouth daily. 0 09/13/19 23 Discontinued insulin LISPRO 100 UNIT/ML injection Inject 0-8 units under the skin 3 times a day before meals. 0 3 09/13/19 23 Discontinued(Reo leelee) insulin LISPRO 100 UNIT/ML injection Inject 0-8 units under the skin every 24 hours. DAYTIME MED Dose CORRECTION Insulin Blood sugar = Dose < 151 = DO NOT GIVE CORRECTIONAL INSULIN 151-199 = 2 units 200-249 = 3 units 250-299 = 5 units 300-349 = 7 units >349 = recheck blood sugar once now, then give 8 units. For BG > 349, call Provider and recheck BG in 1-2 hours. For BG > 500, send venous blood glucose STAT. 1. Check BG before scheduled mealtime. Even if patient is NPO or not eating, GIVE correction insulin IF indicated by correction scale. 2. If POC BG was obtained POST FOOD INTAKE, hold correction insulin dose. If POST FOOD INTAKE BG is GREATER than or equal to 300 mg/dL, call provider for instructions. 3. If BG is LESS than or equal to 70 mg/dL, follow Hypoglycemia Protocol. 0 3 09/13/19 23 Discontinued(Reo rder) documented as of this encounter (statuses as of 09/13/2022) Active Problems Problem Noted Date Cerebrovascular accident (CVA) of left b jameel ganglia 08/27/2022 Acute cerebral infarction 08/19/2022 documented as of this encounter (statuses as of 09/13/2022) Social History Tobacco Use Types Packs/Day Years Used Date Smoking Tobacco: Never Assessed Transportation Needs Answer Date Record ed In the past 12 months, has l ack of transportation kept you from medical appointments or from getting medications? No 08/24 In the past 12 months, has l ack of transportation kept you from meetings, work, or getting things needed for daily living? No 09/12/2022 Sex Assigned at Date Recorded Not on file COVID-19 Exposure Response Date Recorded In the last 10 days, have yo u been in contact with someone who was confirmed or suspected to have Coronavirus/COVID-19? No / Unsure 08/27/2022 10:08 PM PDT documented as of this encounter Last Filed Vital Signs Vital Sign Reading Time Taken Comments Blood Pressure 131/70 09/12/2022 8:10 AM PDT Pulse 86 09/12/2022 8:10 AM PDT Temperature 37.1 ??C (98.8 ??F) 09/12/2022 8:10 AM PD T Respiratory Rate 18 09/12/2022 8:10 AM PDT Oxygen Saturation 98% 09/12/2022 8:10 AM PDT Inhaled Oxygen Concentration - - Weight 69.4 kg (153 lb) 08/27/2022 9:00 PM PDT Height 180.3 cm (5' 11) 08/27/2022 9:00 PM PDT Body Mass Index 21.34 08/27/2022 9:00 PM PDT documented in this encounter Discharge Summaries * Paul Stanford MD - 09/12/2022 12:00 PM PDT Images from the original note were not included. Discharge Summary Kendall Mcclure) - : 1940 (82 year old male) Preferred Pronouns: he/him/his PCP: Pcp, Outside Code Status: Full Code ADMITTING PROVIDER: Souleymane Park DO DATE OF ADMISSION: 08/27/2022 DATE OF DISCHARGE: 09/12/22 DISCHARGE TEAM & ATTENDING: Rehab Medicine Ruddy 1 & Souleymane Park DO ADMISSION DIAGNOSIS: L basal ganglia/thalamic infarct DISCHARGE DIAGNOSIS: L basal ganglia/thalamic infarct IMPAIRMENT GROUP: Stroke: 01.3 Bilateral involvement SECONDARY DISCHARGE DIAGNOSES DMI DISCHARGE FOLLOW-UP VISITS/APPOINTMENTS: Upcoming appointments at Medicine: Future Appointments Date Time Provider Department Center 09/23/2022 2:00 PM Halina Buckley ARNP [facility] 12/09/2022 8:00 AM Refugio Dobbs MD [facility] Additional follow-up: [facility] - Physical Therapy & Rehabilitation [address] [place] [address] Schedule an appointment as soon as possible for a visit Call to schedule outpatient PT, OT and speech therapy for after you are released from the [facility] [place] [address] [place] [address] Schedule an appointment as soon as possible for a visit in 1 month(s) Specialist follow up: for the results of your cardiac event monitor -If you are not able to return to [facility], you can call the clinic to discuss a telemedicine visit [facility] [address] [place] [phone] Schedule an appointment as soon as possible for a visit in 1 month(s) Specialist follow up: for Management of diabetes type I and insulin regimen -If you are not able to return to [facility], you can discuss with your PCP being referred to a provider closer to your home Dr. Richar Pettit [facility] - [address] [place] [address] [place] [address], [address] [place] [address] Phone: [phone] Go to APPOINTMENT AT: 1:30pm Appointment to establish care with the primary care provider. You will transition and see Dr. Uriel Tellez in November -provider can write prescriptions for medication refills [facility] [address] [place] [address] [address] [place] [address] Schedule an appointment as soon as possible for a visit in 4 week(s) A referral has been sent for you to follow-up with an outpatient Rehab Medicine provider in 4-6 weeks. Provider will monitor ongoing progress with therapies. [facility] [address] [place] [address] Follow up in 1 month(s) Specialist follow up: neurology for multiple strokes PENDING RESULTS THAT REQUIRE FOLLOW-UP (as of this summary): Pending Labs Order Current Status MICRO/SEROLOGY SENDOUT Preliminary result DIAGNOSTIC STUDIES RECOMMENDED: [facility] glycemic team advising the following DMI insulin management since SNF does not use carb ratio method: Lispro 6 units TID (give a half dose of lispro if his blood sugar is between 71- 89 ) Lispro medium dose correctional sliding scale TID before meals Lispro low dose correctional sliding scale at bedtime Glargine 16 units nightly See discharge orders for hypoglycemia recommendations if bg <90, If BG is LESS than or equal to 90mg/dL, offer patient juice or a small snack if appropriate. 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 Cardiology not concerned and no s/sx of hemodynamic compromise or tamponade.Plan for further monitor outpatient w/ his rn trauma. 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 * glucagon 1 MG injection Inject 1 mg under the skin as needed (for hypoglycemia protocol). * glucagon 1 MG injection Inject 0.5 mg under the skin as needed (for hypoglycemia protocol). insulin GLARGINE 100 UNIT/ML injection Commonly known as: Lantus Inject 16 units under the skin every evening. Replaces: Lantus SoloStar 100 UNIT/ML pen-injector * insulin LISPRO 100 UNIT/ML injection Inject 0-4 units under the skin at bedtime. BEDTIME LOW Correction Insulin Blood sugar = Dose < 200 = DO NOT GIVE CORRECTIONAL INSULIN 200-249 = 2 units 250-299 = 3 units 300-349 = 3 units >349 = recheck blood sugar once now, then give 4 units. For BG > 349, call PROVIDER and recheck BG in 1-2 hours. For BG > 500, send venous blood glucose STAT. 1. Check BG. Even if patient is NPO or not eating, GIVE correction insulin IF indicated by correction scale. 2. If BG is LESS than or equal to 90mg/dL, offer patient juice or a small snack if appropriate. If BG is LESS than or equal to 70 mg/dL, follow Hypoglycemia Protocol. * insulin LISPRO 100 UNIT/ML injection Inject 6 units under the skin 3 times a day before meals. Give a half dose of lispro (3 units) if his blood sugar is between 71-89 * insulin LISPRO 100 UNIT/ML injection Inject 0-8 units under the skin 3 times a day before meals. DAYTIME MED Dose CORRECTION Insulin Blood sugar = Dose < 151 = DO NOT GIVE CORRECTIONAL INSULIN 151-199 = 2 units 200-249 = 3 units 250-299 = 5 units 300-349 = 7 units >349 = recheck blood sugar once now, then give 8 units. For BG > 349, call Provider and recheck BG in 1-2 hours. For BG > 500, send venous blood glucose STAT. 1. Check BG before scheduled mealtime. Even if patient is NPO or not eating, GIVE correction insulin IF indicated by correction scale. 2. If POC BG was obtained POST FOOD INTAKE, hold correction insulin dose. If POST FOOD INTAKE BG isGREATER than or equal to 300 mg/dL, call provider for instructions. 3. If BG is LESS than or equal to 70 mg/dL, follow Hypoglycemia Protocol. * This list has 5 medication(s) that are the same as other medications prescribed for you. Read thedirections carefully, and ask your doctor or other care provider to review them with you. CONTINUE taking these medications hydroxychloroquine 200 MG tablet Commonly known as: Plaquenil rosuvastatin 5 MG tablet Commonly known as: Crestor sulfaSALAzine 500 MG tablet STOP taking these medications insulin ASPART 100 UNIT/ML injection Commonly known as: NovoLOG Lantus SoloStar 100 UNIT/ML pen-injector Generic drug: insulin GLARGINE Replaced by: insulin GLARGINE 100 UNIT/ML injection lisinopril 5 MG tablet Commonly known as: Prinivil; Zestril Where to Get Your Medications These medications were sent to [facility] [address] [place] [address] Hours: Mon-Fri 8:30am - 8:00pm, Sat-Sun 9:00am - 8:00pm, Please allow 48 hours for refills. aspirin 325 MG tablet Information about where to get these medications is not yet available Ask your nurse or doctor about these medications glucagon 1 MG injection glucagon 1 MG injection insulin GLARGINE 100 UNIT/ML injection insulin LISPRO 100 UNIT/ML injection insulin LISPRO 100 UNIT/ML injection insulin LISPRO 100 UNIT/ML injection BRIEF ADMISSION HISTORY: Per admission note from 08/27 Dr Paul Stanford Mr. Lopez presented at OSH with new neurological deficits and was found to have an acute L thalamic/basal ganglia stroke complicated by a small but subsequently stable hemorrhagic conversion as well as subacute R centrum semiovale ischemic stroke and chronic right frontal ischemic stroke. The e tiology of his strokes was unclear so he was transferred to [facility] for further diagnostic work up. On a prior echo, the patient was noted to have an aortic mass, yet on our TTE did not show a mass. Moreover, outpatient cardiology notes recognize this finding and favored it to not represent a mass. We had the TTE pushed over to [facility] and at time of discharge were in the process of having [facility] cardiology read the images. TCD's were negative for emboli. Intracranial vessel imaging demonstrated a moderate burden of atherosclerosis. Given the patient's history of rheumatoid arthritis as well as pericarditis and pleural effusions, there was concern for a systemic inflammatory process. However his laboratory studies were normal and a pozo CT scanning did not demonstrate any signicant abnormalities. Hypercoagulable studies were sent and were also negative. A definitive cause of his stroke was not determined; however, we favor atherosclerosis as the primary. He was discharged on aspirin 325mg dailyand rosuvastatin 5mg daily. He will be discharged with a cardiac cath technician to assess for A-fib burden. #Old R Frontal Infarct #Subacute R Centrum Semioval Infarct #Acute L BG + Thalamic Infarct - Suspect atherosclerotic - [ ] ASA 325mg qd until seen by neurology in stroke clinic HOSPITAL COURSE: Since admission, the patient made significant functional gains with OT, PT, speech. On day of discharge, the patient was in medically stable condition and was discharged to SNF at [facility]. Rest of plan per problem below. #Rehabilitation plan for ischemic infarct - Continue comprehensive inpatient rehabilitation care including medicine, nursing, physical therapy, occupational therapy, speech therapy, recreational therapy and rehabilitation psychology. Memory Memory is challenge especially antegrade Speech therapy recs: Reinforced introduction to memory book. While referencing calendar, pt ID date, day, mo, yr. Speech Word-finding expressive aphasia noted Agitation None currently Pain No concerns at this time Sleep No concerns at this time 8. Bowel/Bladder a. No concerns at this time 9. Nutrition a. No concerns at this time. Full diet 10. Decreased mood a. No SI/HI - rehab psych becoming involved 11. Mobility a. CGA with all transfers, ambulating 200 ft with no AD Megn 12. Cognitive a. Paying bills requires modA->MaxA for money management tasks b. Still requiring maxA cueing to describe object characteristics 13. Self-long term management a. 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 History of old right frontalinfarct, subacute right centrum semioval infarct. Acute/subacute ischemic infarcts in bilateral hemispheres in multiple territories with unknown etiology, currently undergoing extensive workup for feng rce. TTE was negative for atrial mass, which was initial suspicion for a cardioembolic source. Blood cx NGTD and no s/sx of infection, making infective endocarditis very unlikely currently. MRI blackkajal had findings most consistent with atherosclerotic changes, with no evidence of vasculitis or other inflammatory process, r/o RA vasculitis. APS labs negative. CT C/A/P overall unremarkable, x1 5mm indeterminate lung nodule and calcified granulomas. Repeat TCD negative. Will work to obtain OSHecho images to ensure there was no prior mass seen. Continue neuro checks with VS monitoring. Continue goals for normotension, normothermia, eunatremia- goal 135-145, and euglycemia: BG <180. The pt remains on ASA 325mg daily and DVT ppx - SQH [id number]. 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 Seems mostly good control at home. Will cont to monitor BGcontrol on current regimen. Appreciate endocrinology recs/assistance as needed. - Lantus 16u PM - nutritional insulin 1u:10 carbs - MDSSI w/ meals + qhs - Consult to glycemic control given elevations today and to simplify regimen given cog deficits. 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 Cardiology not concerned and no s/sx of hemodynamic compromise or tamponade.Plan for further monitor outpatient w/ his rn trauma. - outpatient cardiology f/u and eval [ ] #ARNAV - Unclear baseline sCr - though prior Cr 1.1 a year ago. Cr 1.32 on admission, now 1.15 on 02/27/22. #HLD - rosuvastatin 5mg #Rheumatoid Arthritis Patient does not endorse any arthritic pain or flare-up episode. To maintain optimal immunosuppression, restarted home RA meds. - continue sulfasalazine and hydroxychloroquine #Asthma, stable - uses fluticasone/salmetrol at home - duoneb prn ordered, NOT ON DISCHARGE. Not requiring. ANTICIPATED FOLLOW-UP AFTER DISCHARGE Rehab Medicine within 1 month after discharge Primary Care Physician within 1 weeks after discharge Therapies: To be determined On discharge, the patient will need the following follow up: - endocrinology - PCP - stroke clinic - cardiology to follow up the cardiac event monitor DISPOSITION: 03 SNF-INTERMEDIATE FACILITY [03] CONDITION: good CONSULTS COMPLETED: IP CONSULT TO NUTRITION SERVICES IP CONSULT TO GLYCEMIC CONTROL IP CONSULT TO GLYCEMIC CONTROL PRINCIPAL DIAGNOSTIC STUDIES/RESULTS: Discharge Orders NURSING COMMUNICATION Order Comments: Give 8oz of juice if blood sugar <70 Release Result to Patient Immediate Referral to Physical Therapy - Neurologic (TBI, SCI, MS, Stroke) Standing Status: Future Referral Priority: Routine Referral Type: Physical/ Occ/ Speech Therapy Number of Visits Requested: 1 Referral to OT Occupational Therapy Standing Status: Future Referral Priority: Routine Referral Type: Physical/ Occ/ Speech Therapy Number of Visits Requested: 1 Referral to Speech Therapy Standing Status: Future Referral Priority: Routine Referral Type: Physical/ Occ/ Speech Therapy Number of Visits Requested: 1 Referral to Neurology Standing Status: Future Referral Priority: Routine Referral Type: Specialty Visit Number of Visits Requested: 1 Referral to Neurology Standing Status: Future Referral Priority: Routine Referral Type: Specialty Visit Number of Visits Requested: 1 Referral to Cardiology Standing Status: Future Referral Priority: Routine Referral Type: Specialty Visit Number of Visits Requested: 1 Referral to Endocrinology-Diabetes Standing Status: Future Referral Priority: Routine Referral Type: Specialty Visit Number of Visits Requested: 1 Referral to Rehabilitation Medicine Standing Status: Future Referral Priority: Routine Referral Type: Rehab Number of Visits Requested: 1 ADMISSION FUNCTIONAL STATUS (per note from Dr. Paul Stanford on 08/27): Prior function: after CVA in June was using 4WW and walking sticks. Was ambulatory without AD for about a week prior to admission. Not driving Current Function: PT: 08/26/22 Pt seen this date for mobility progression. He presents w/ L sided weakness and coordination impairments, endorses mild fatigue following OT session and reports things are confusing. He has progressed to CGA for transfers from EOB, Meng for toilet transfers 2/2 low toilet height and up to Meng for mgmt of FWW with directional changes while ambulating. He is an excellent candidate for daily intensive therapy with a goal of optimizing function. Will continue to follow OT: 08/26/22 Pt scored DEPENDENTwith setting up a mediset with unfamiliar medications. Overall, pt demonstrated difficulties with: attention, attention to details, simple problem solving, and task efficiency Transfers Sit<>Stand: Contact guard assist (touching/steadying assistance) Sit<>Stand Assistive Device Details: Front wheeled walker Cuing Used: Verbal;Tactile Toilet Transfer: Minimum Assist (less than 25% help needed) Toilet Assistive Device Details: Grab bars;Front wheeled walker Toilet Transfers Comments: cues for hand placement Functional Mobility Distance: 50 ft Assistance Needs: Contact guard assist (touching/steadying assistance);Assistive device used Functional Mobility Assistive Device Details: Front wheeled walker Impaired ADL status;Impaired safety and/or judgement during ADL's;Impaired cognition;Impaired fine motor coordination;Visual deficit;Impaired IADL's Speech: 08/20 Swallow: Pt is at heightened risk for aspiration in the setting of new acute infarct in the left basal ganglia/thalamus, and evolving infarction in the right frontal region. Pt tolerated hard solids,purees, and single sips of thin liquids with no overt signs of aspiration. Occasional throat clear noted when pt took multiple consecutive sips of thin liquids. Based on current presentation, recommend continuation of regular diet and thin liquids, with 1:1 supervision and cues for small single sips. Given that basal ganglia and thalamic involvement can heighten risk for silent aspiration, recommend close monitoring of respiratory status with a low threshold to make pt NPO and plan for VFSS if any respiratory or aspiration-related concerns arise. [employer]WMAN will follow closely. Cognitive-communication: Pt presents with receptive/expressive aphasia (expressive more impaired than receptive), with possible underlying memory/processing speed deficits. Pt is able to follow commands and answer egocentric yes/no questions. He is able to communicate basic wants/needs but with word-finding deficits noted during structured tasks and more complex verbal output. Suspect this is a departure from patient's recent baseline. Recommend assistance with communication-based tasks and iADLS. Pt is a good candidate for daily intensive [employer]WMAN intervention if pt has PT/OT goals to support IPR stay. Acute [employer] CREWMAN will follow while in-house. Bowel: spontaneous/continent Bladder: spontaneous/continent Nutrition: reg diet/thin liquids with 1:1 supervision and cues for small single sips DISCHARGE FUNCTIONAL STATUS: Current Function: Mobility: Supine<>sit independently. Pt ambulated 150 feet, 450 feet, 200 feet with FWW and SBA. Cues for upright posture, longer step lengths, increased RLE clearance ADLs: Showers MWF, toileting with min A to toilet, Cognition/Communication: Pt required mod A verbal/visual cueing to recall specific recommendations,benefited from verbal+ written choices. Pt i'ly recalled general ideas like needing 24hr supervision and help with cognitive tasks like bills, med management, cooking. Swallow: No concerns regular diet (carb-controlled) Bowel: spontaneous, continent Bladder: spontaneous, continent DISCHARGE PHYSICAL EXAM: Vitals (Most recent in last 24 hrs) T: 37.1 ??C (09/12/22809) BP: 131/70 (09/12/22809) HR: 86 (09/12/22809) RR: 18 (09/12/22809) SpO2: 98 % (09/12/22809) Room air T range: Temp Min: 36.9 ??C Max: 37.5 ??C Admit weight: 69.4 kg (153 lb) (08/27/222099) Last weight: 69.4 kg (153 lb) (08/27/222099) Physical Exam Constitutional: General: He is not in acute distress. Appearance: Normal appearance. He is normal weight. He is not ill-appearing. HENT: Mouth/Throat: Mouth: Mucous membranes are moist. Eyes: Extraocular Movements: Extraocular movements intact. Conjunctiva/sclera: Conjunctivae normal. Pupils: Pupils are equal, round, and reactive to light. Cardiovascular: Rate and Rhythm: Normal rate and regular rhythm. Pulses: Normal pulses. Heart sounds: Normal heart sounds. No murmur heard. Pulmonary: Effort: Pulmonary effort is normal. No respiratory distress. Breath sounds: Normal breath sounds. No wheezing. Skin: General: Skin is warm and dry. Neurological: Mental Status: He is alert. Cranial Nerves: CN II-XII intact Motor Strength: R L Shoulder abduction 5 5 Elbow flexion 5 5 Elbow extension 5 5 Wrist extension 5 5 Special Education Coordinator strength 5 5 Hip flexion 5 5 Knee extension 5 5 Knee flexion 5 5 Dorsiflexion 5 5 Plantarflexion 5 5 Sensation: Grossly intact to finger touch in bilateral upper and lower extremities. No tactile neglect with unilateral and simultaneous finger touch to legs. Proprioception intact at bilateral great toes. Reflexes: Biceps 2+ Patellar 2+ Chamberlain negative Babinski downgoing Clonus none Coordination: Finger to nose testing without apparent dysmetria. Finger tapping without apparent dysmetria. Rapid alternating movements without apparent dysdiadokinesia. Cognition: Alert and oriented. X1/2 ( did not know date, but did on cueing, did not know location but did on cueing) Able to repeat 3 of 3 words (plastic, pen, shoe) after 1 trial. Able to say [place] is a rainy city. Able to name phone, badge/nametag, and pen Able to follow 3 step commands. Unable to to spell WORLD backwards. Able to copy three-dimensional cube accurately. Able to draw a north fork clock but correct numbering. UNABLE to draw the time as 11:40 on above clock. Able to repeat 5 digits forwards and 3 digits backwards. Able to recall 0 of 3 words (apple, red, faith) after 5 minutes. 3/3 with cueing Able to explain similarities between objects (apple/orange, left/up). Able to describe what he/she would do with a stamped letter. Pulse: 85 Resp: 15 BP: 90/62 Temp: 36.7 ??C Weight: 69.4 kg (153 lb) Medicine physicians mentioned in this note can be reached by calling the Medicine Paging Audit Machine Operator at [phone]. If any part of this transcript is missing or to request other transcripts for this patient call [phone]. For online access to patient records enroll in [employer] at [email or web address]. Associated attestation - Souleymane Park DO - 09/12/2022 1:20 PM PDT Date of Service: 09/12/22 I saw and evaluated the patient. I have reviewed the resident(s)'s/fellow(s)'s documentation and agree. I spent more than 30 minutes on hospital discharge day management. Updated discharge summary as of 1:19pm 09/12/2022, also see updates to insulin orders. [facility] glycemic team advising the following DMI insulin management since SNF does not use carb ratio method: Lispro 6 units TID (give a half dose of lispro if his blood sugar is between 71- 89 ) Lispro medium dose correctional sliding scale TID before meals Lispro low dose correctional sliding scale at bedtime Glargine 16 units nightly See discharge orders for hypoglycemia recommendations if bg <90, If BG is LESS than or equal to 90mg/dL, offer patient juice or a small snack if appropriate. If BG is LESS than or equal to 70 mg/dL, provide glucagon SQ injection (0.5 mg for bg 70-89, 1.0 mg for bg<70) High-Risk Drug Classes: use and indication Is taking: Indication noted: Antipsychotic No N/A Anticoagulant Yes Yes Antibiotic No N/A Opioid No N/A Antiplatelet Yes Yes Hypoglycemic (including insulin) Yes Yes None of the above N/A documented in this encounter Discharge Instructions * Discharge Instructions* Souleymane Park DO - 09/12/2022 12:00 PM PDT Updated discharge summary as of 1:19pm 09/12/2022, also see updates to insulin orders. [facility] glycemic team advising the following DMI insulin management since [facility] does not use carb ratio method: Lispro 6 units TID (give a half dose of lispro if his blood sugar is between 71- 89 ) Lispro medium dose correctional sliding scale TID before meals Lispro low dose correctional sliding scale at bedtime Glargine 16 units nightly documented in this encounter Medications at Time of Discharge Medication Sig Dispensed Refills Start Date End Date aspirin 325 MG tablet Take 1 tablet (325 mg) by mouth daily. 30 tablet 0 09/02/2022 glucagon 1 MG injection Inject 1 mg under the skin as needed (for hypoglycemia protocol). 0 09/12/2022 glucagon 1 MG injection Inject 0.5 mg under the skin as needed (for hypoglycemia protocol). 0 09/12/2022 hydroxychloroquine 200 MG tablet Take 1 tablet (200 mg) by mouth 2 times a day. 0 insulin GLARGINE (Lantus) 100 UNIT/ML injection Inject 16 units under the skin every evening. 0 09/12/2022 insulin LISPRO 100 UNIT/ML injection Inject 0-4 units under the skin at bedtime. BEDTIME LOW Correction Insulin Blood sugar = Dose < 200 = DO NOT GIVE CORRECTIONAL INSULIN 200-249 = 2 units 250-299 = 3 units 300-349 = 3 units >349 = recheck blood sugar once now, then give 4 units. For BG > 349, call PROVIDER and recheck BG in 1-2 hours. For BG > 500, send venous blood glucose STAT. 1. Check BG. Even if patient is NPO or not eating, GIVE correction insulin IF indicated by correction scale. 2. If BG is LESS than or equal to 90mg/dL, offer patient juice or a small snack if appropriate. If BG is LESS than or equal to 70 mg/dL, follow Hypoglycemia Protocol. 0 09/12/2022 insulin LISPRO 100 UNIT/ML injection Inject 6 units under the skin 3 times a day before meals. Give a half dose of lispro (3 units) if his blood sugar is between 71-89 0 09/12/2022 insulin LISPRO 100 UNIT/ML injection Inject 0-8 units under the skin 3 times a day before meals. DAYTIME MED Dose CORRECTION Insulin Blood sugar = Dose < 151 = DO NOT GIVE CORRECTIONAL INSULIN 151-199 = 2 units 200-249 = 3 units 250-299 = 5 units 300-349 = 7 units >349 = recheck blood sugar once now, then give 8 units. For BG > 349, call Provider and recheck BG in 1-2 hours. For BG > 500, send venous blood glucose STAT. 1. Check BG before scheduled mealtime. Even if patient is NPO or not eating, GIVE correction insulin IF indicated by correction scale. 2. If POC BG was obtained POST FOOD INTAKE, hold correction insulin dose. If POST FOOD INTAKE BG is GREATER than or equal to 300 mg/dL, call provider for instructions. 3. If BG is LESS than or equal to 70 mg/dL, follow Hypoglycemia Protocol. 0 09/12/2022 rosuvastatin 5 MG tablet Take 1 tablet (5 mg) by mouth daily. 0 sulfaSALAzine 500 MG tablet Take 2 tablets (1,000 mg) by mouth 2 times a day. 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 Neurology note states: right frontal infarct in the [place] territory in June. 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 He participated in ongoing training of communication strategies and use of external memory aids. Currently, he requires min verbal assist toidentify the date on the calendar and reads information re: therapists and typical activities. He currently requires max A verbal cues to recall activities in prior therapy sessions. When completing moderately complex attention tasks such as reviewing stroke education materials, he has benefited from decreased stimuli and few written choices to promote comprehension and verbal initiation of teach-back. Education and caregiver training re: stoke, cognition, and aphasia has been completed, and minda rAgueta and his have asked appropriate questions throughout. Given his age and subsequent strokes, Kendall has a fair prognosis for recovery, however is well supported by his family. Following discharge, Kendall will require assistance with iALDs, and it is recommended he continue speech therapy. 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 Assessment Results: Cognitive communication impairment, Aphasia Cognitive Communication Impairment: Moderate Aphasia: Mild Impact on Function: Reduced ability to recall important information, Reduced ability to follow safety precautions, Reduced ability to understand and participate in higher level conversations Prognosis: Fair Evaluation/Treatment Tolerance: Patient tolerated treatment well Treatment/Interventions: Cognitive communication treatment, Speech/language/voice treatment, Patient/family education [employer]WMAN Discharge Recommendations: Follow up with [employer]LE CREWMAN at next level of care Swallow Recommendations Diet Recommendations: Regular, 0-Thin liquids Medication Administration Recommendations: Meds as tolerated Oral care: Frequency: 2-3x per day Aspiration Precautions: As upright as medically possible for all oral intake, Fully alert for all PO intake, One sip at a time, Cut up/set up Cognitive Communication Recommendations : Allow patient breaks as needed, Follow consistent routineas able, Reduce external stimuli (TV, smart phone, electronic devices, number of visitors) Communication Recommendations: Allow automatic function as able, Make sure you have patient's attention before speaking to them, Keep verbal input short, simple, direct, Give patient extra time to respond and speak, Try asking simple yes/no questions Goals Short Term Goal: Tolerate least restrictive diet Estimated Completion Date: 09/05/22 Goal Status: Met Short Term Goal: Participate in further evaluation to determine appropriate treatment goals Estimated Completion Date: 09/03/22 Goal Status: Met Short Term Goal: Participate in development and trials of external memory aids Estimated Completion Date: 09/03/22 Goal Status: Met Discharge Goal - Education: Patient/caregiver will participate in education regarding: Dysphagia;Aphasia;Cognition;Cerebrovascular Accident Estimated Completion Date: 09/09/22 Goal Status: Met Discharge Goal: Pt will utilize compensatory strategies for memory in functional tasks with 80% accuracy Estimated Completion Date: 09/09/22 Goal Status: Adequate for discharge Discharge Goal: Pt will utilize word finding strategies in converstaion w min A Estimated Completion Date: 09/09/2022 Goal Status: Adequate for discharge * Mamta Branham LSWAIC - 09/12/2022 7:58 AM PDT Social Work Discharge Note Service: REHAB MEDICINE BLUE 1 Anticipated Discharge Date: 09/12/2022 Funding: Insurance Information MEDICARE/MEDICARE PART A AND B Subscriber: Kendall Lopez Subscriber#: [id number] Group#: -- Precert#: -- [facility] AARP MEDICARE SUPPLEMENT Subscriber: Kendall Lopez Subscriber#: [id number] Group#: -- Precert#: -- Discharge Plan: Living situation post discharge: Home;FPC facility Facility Contact Information: [address] [id number] RN Report: [phone] Jaki AC: [phone] Discharge Placement Checklist: Facility Discharge Checklist: Bedside RN Updated;Discharge Summary completed;Meds completed;PASRR completed / Negative;PSS aware of transfer & given packet;Orders completed;COBRA N/A;GuardianshipN/A;Patient / LNOK notified of transfer Discharge Transportation: What day is the transport expected?: 09/12/22 What time is the transport expected?: 1030 Transportation type/payment: Personal Ride , Patient/Family Name, Agreeable: Yes INTERVENTION: Pt is discharging to [facility] today. His son, Gulshan, will provide transportation to [facility]. Gulshan is picking pt up between 10-10:30AM. CHRISTEN spoek with FARIDA Pollack at [facility], who confirms that they can admit pt today with 10:30am discharge from [facility]. Pt had COVID test on 09/10. Per FARIDA Pollack, another COVID test is not needed prior to discharge. BSRN was provdied contact for RN report. CHRISTEN faxed dicharge summary, order, PASRR and COVID test to FARIDA Pollack at [facility]. Per PT, pt is safe to transport via personal ride. CHRISTEN confirmed with pt's son, Gulshan, that he will transport pt to [facility] today at 10:30am. SW initiated discharge packet and gave to PSS to complete. PSS aware that pt is transporting via personal ride form son, Gulshan. Pt and pt's agreeable to discharge to [facility] today. CHRISTEN updated Rehab Team on plan for d/c to [facility] today at 10:30 via personal ride. UPDATE 11:45 Pt discharged closer to 11:30am. FARIDA Pollack at [facility], updated. PLAN OR OUTCOME: Pt discharging to [facility] today at 10:30AM via personal ride. . ANTHONY Centeno * Vo, Pola- H, DIRECTOR OF LEADERSHIP DEVELOPMENT - 09/11/2022 5:14 PM PDT Social Work Progress Note Service: REHAB MEDICINE BLUE 1 Admit reason: Per chart, pt is an 82 year old male admitted for Cerebrovascular accident (CVA) of left basal ganglia (HCC) [I63.81]. Funding: Insurance Information MEDICARE/MEDICARE PART A AND B Subscriber: Kendall Lopez Subscriber#: [id number] Group#: -- Precert#: -- [facility] AARP MEDICARE SUPPLEMENT Subscriber: Kendall Lopez Subscriber#: [id number] Group#: -- Precert#: -- Healthcare Decision Making Information: Per previous SW note, pt's is primary DPOA for Healthcare and his daughter, Mamta, is secondary DPOA. Contact in Following Order for Legal Next of Kin Decision Making: Patient as able Liyah Lopez: DPOA/: [phone] Mamta Lopez: Secondary DPOA/Daughter: [phone] Gulshan Lopez: Son: [phone] Living Situation Prior to Admit: Home;Spouse/Significant other Anticipated Living Situation Post Discharge/Needs: Home;FPC facility Anticipated Discharge Date: 09/12/2022 ASSESSMENT: Per chart, Kendall Lopez is an 82 year-old RHD male with history of HTN, HLD, T1DM, RA on immunosuppression who presented to an OSH with AMS/aphasia, found to have 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 Pt admitted to [facility] on 08/27/22. Covering SW following up w/ confirming discharge plan to home vs. SNF. Pt has been accepted at [facility] and was anticipated to discharge to said facility until SW was alerted that INTERVENTION: Pt has been accepted to [facility] and discharge is anticipated for 09/12 between 10-10:30AM, when son Gulshan will be coming to provide transport. was reportedly apprehensive about pt discharging to SNF and had many questions, which PA Ranjana assisted w/ addressing. Per PA, discharge plan is currently confirmed for SNF. 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 No Subjective Patient Report/Self-Assessment Pt presents supine in bed. Agreeable to therapy Transfers Car Transfer Supervision / Stand by assistance Car Transfer Assistive Device Details Front wheeled walker Picking Up an Object Supervision / Stand by assistance Stairs Number of steps 12 Level of Assistance Supervision / Stand by assistance Style Reciprocal Assistive Device Used 2 railings 4 Steps Supervision / Stand by assistance 12 Steps Supervision / Stand by assistance Curb Curb Assessment Supervision / Stand by assistance Curb Comments With FWW PT Daily Recommendations PT IRF Daily Recommendations SBA for transfers and walking with FWW. Community Level 0. cleared for transfers and walking. Therapeutic Exercise Therapeutic Exercise Time Entry 10 Therapeutic Exercise Activity 1 NuStep x10 min level 2 with all four extremities. Therapeutic Activity Therapeutic Activity Time Entry 15 Therapeutic Activity 1 Jarrell re test, stairs, car transfer, curb re assessment in prep for potentialDC Gait Training Gait Training Time Entry 15 Gait Training Activity 1 Gait on unit with FWW and SBA. Distances of: 500', 200' Jarrell Balance Scale 1. Sitting to Standing 4 2. Standing Unsupported 4 3. Sitting with Back Unsupported but Feet Supported on Floor or on a Stool 4 4. Standing to Sitting 4 5. Transfers 3 6. Standing Unsupported with Eyes Closed 4 7. Standing Unsupported with Feet Together 4 8. Reach Forward with Outstretched Arm While Standing 3 9. [employer] Object from Floor from a Standing Position 4 10. Turning to Look Behind Over Left and Right Shoulders While Standing 3 11. Turn [address] Foot on Step or Stool While Standing Unsupported 1 13. Standing Unsupported One Foot in Front 2 14. Standing on One Leg 1 Jarrell Balance Score 43 * Ellie Webber, SIGNAL HELPER - 09/11/2022 4:07 PM PDT TR INITIAL ASSESSMENT Patient Name: Kendall Lopez Preferred Name: Kendall Lopez 1940, 82 year old, male Preferred Pronoun: he / his Today's Date: 09/11/2022 SUMMARY Encounter Diagnoses Name Primary? Cerebrovascular accident (CVA) of left basal ganglia (HCC) Yes Acute cerebral infarction (HCC) Pericardial effusion Type 1 diabetes mellitus without complication (HCC) Encounter Diagnoses Diagnosis Acute cerebral infarction (HCC) Cerebrovascular accident (CVA) of left basal ganglia (HCC) PRECAUTIONS Review of patient's allergies indicates: Allergies Allergen Reactions Shellfish-Derived Products GI:Nausea/vomiting 09/11/22 1607 General Documentation Type Brief Note Is an child and adolescent psychologist used? 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 No PT Daily Recommendations PT IRF Daily Recommendations SBA for transfers and walking with FWW. Community Level 0. cleared for transfers and walking. Therapeutic Exercise Therapeutic Exercise Time Entry 10 Therapeutic Exercise Activity 1 Nustep; x10 min at level 3, BLEs only, at 70 spm, cues for reciprocal pattern and actively flexing and extending hips Balance/Neuromuscular Re-Education Neuromuscular Re-Education Time Entry 15 Balance/Neuromuscular Re-Education Activity 1 Parallel bars; tandem walking with 1 UE support, forwards and backwards, standing marching practice with no UE support, and 1 UE support high knee marching stepping for multiple laps in bars, CGA mostly throughout with min A during occasional LOB with no UE support Gait Training Gait Training Time Entry 20 Gait Training Activity 1 Ambulation; with FWW and with no device; CGA with FWW, min A at times withno device, consistent cues needed for posture, increasing step length, and hip extension to help decreasing festinating gait pattern, able to partially self correct by end of session with less cues needed without device Gait Training Activity 2 Multiple seated rest breaks needed, pt would intermittently sit down on near by chair/mat table with CGA, able to verbalize after sitting that he was tired but not during ambulation * Galileo Vazquez, ARM[employer]ONNAISSANCE VEHICLE CREWMAN - 09/11/2022 3:24 PM PDT Speech Language Pathology Treatment Patient Name: Kendall Lopez Today's Date: 09/11/2022 Subjective Patient Report/Self-Assessment: Pt asleep in-bed upon entry Patient Stated Goal: Get to go home. Get to practice all sorts of things Patient Active Problem List Diagnosis Acute cerebral infarction (HCC) Cerebrovascular accident (CVA) of left basal ganglia (HCC) General Visit Information [employer] Last Visit [employer] Received On: 09/11/22 [employer] CREW[employer] Document Type: Progress [employer]WMAN Total Treatement Time in Minutes: 45 Minutes Visual Acuity: Corrective lenses Auditory Acuity: Functional in conversation Family/Caregiver Present: No Prior Function Prior Function: Pt reports he lives in [place] with his . Neurology note states: right frontal infarct in the MCA/AYLIN territory in June. Unclear whether pt had residual cognitive-communicationdeficits, plan to discuss with family when present. 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 Memory -Daily Log: max A for initiation to transfer information into daily log. Total A for recall of activities completed in OT. Mod Semantic Cues for recall of activities in PT (car transfers, stairs, standing balance). Verbal Expression Structured Conversation, modeling caregiver directed communication strategies. EXAMPLE - Clinician prompted pt to recall and describe items from lunch tray. +'ana laura recalled 3 items from tray. I had busy plate with lots of greens. >Semantic cue: identified it was in a bowl >Phonemic cue: No response >Cloze Word: (+) Salad >Multiple choice for items on salad: (+) identified 2 additional items. Written Expression -Sentence Completion: +'ana laura 10/02, pt w/ spelling error in 03/04 (ex. Barber for Door), max cue for error detect . Discharge Recommendations: -Reviewed safety recommendations for discharge: 24 hour supervision, community supervision, no driving, alcohol, drugs, climbing ladders, heavy chores, yard work, power tools; assist with iADLs (money, medications, cooking); follow up with PCP; complete all outpatient therapies. - Reviewed recommended memory, attention, and communication strategies w/in discharge educational handout. Assessment/Plan Swallow Recommendations Diet Recommendations: Regular;0-Thin liquids Medication Administration Recommendations: Meds as tolerated Oral care: Frequency: 2-3x per day Aspiration Precautions: As upright as medically possible for all oral intake;Fully alert for all POintake;One sip at a time;Cut up/set up Cognitive Communication Recommendations Cognitive Communication Recommendations : Allow patient breaks as needed;Follow consistent routine as able;Reduce external stimuli (TV, smart phone, electronic devices, number of visitors) Communication Recommendations: Allow automatic function as able;Make sure you have patient's attention before speaking to them;Keep verbal input short, simple, direct;Give patient extra time to respond and speak;Try asking simple yes/no questions * Souleymane Park DO - 09/11/2022 12:10 PM PDT Rehabilitation Medicine Progress Note Kendall Lopez (Kendall) - : 1940 (82 year old male) Preferred Pronouns: he/him/his PCP: Pcp, Outside Code Status: Full Code CHIEF CONCERN / IDENTIFICATION: Kendall Lopez is an 82 year-old RHD male with history of HTN, HLD, T1DM, RA on immunosuppression who presented to an OSH with AMS/aphasia, found to have 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 SUBJECTIVE Patient cleared from c.auris screening and removed from isolation. COVID screen negative. Patient walking well, retesting of balance today with PT. MEDICATIONS: Scheduled medications: aspirin, 325 mg, Oral, Daily heparin, 5,000 units, Subcutaneous, q12h ASTRID hydroxychloroquine, 200 mg, Oral, BID insulin GLARGINE, 16 units, Subcutaneous, q PM insulin LISPRO, 0-4 units, Subcutaneous, q HS insulin LISPRO, 0-5 units, Subcutaneous, TID before meals insulin LISPRO, 0-8 units, Subcutaneous, q24h insulin LISPRO, , Subcutaneous, TID before meals rosuvastatin, 5 mg, Oral, Daily senna, 17.2 mg, Oral, BID sulfaSALAzine, 1,000 mg, Oral, BID PRN medications: PRN medications: acetaminophen, dextrose, dextrose, glucagon, glucagon, melatonin, ondansetron, zinc oxide OBJECTIVE T: 36.4 ??C (08/27/222037) BP: 116/84 (08/27/222037) HR: 80 (08/27/222037) RR: 16 (08/27/222037) SpO2: 95 % (08/27/222037) Room air Vitals (Most recent in last 24 hrs) T: 37.2 ??C (09/11/22740) BP: 138/72 (09/11/22740) HR: 95 (09/11/22740) RR: 16 (09/11/22740) SpO2: 95 % (09/11/22740) Room air T range: Temp Min: 36.4 ??C Max: 37.2 ??C Wt 153 lb (69.4 kg) Ht 5' 11 (1.803 m) Body mass index is 21.34 kg/m??. Physical Exam: General: no acute distress HEENT: normocephalic Cadiac: extremities warm and well perfused Pulmonary: nonlabored breathing on room air Abdomen: nondistended Neuro: alert and awake, Aox1-2, 0/3 delayed recall, balance improving Psych: pleasant, appropriate LABS: Labs (last 24 hours): Chemistries CBC LFT Gases, other 135 103 33 169 - AST: - ALT: - -/-/-/- -/-/-/- 4.4 25 1.09 - >< - AP: - T bili: - Lact (a): - Lact (v): - eGFR: >60 Ca: 9.3 - Prot: - Alb: - Trop I: - D-dimer: - Mg: - PO4: - ANC: - BNP: - Anti-Xa: - ALC: - INR: - ADDITIONAL RESULTS/IMAGING: MICRO: I have personally reviewed the latest Micro results and cultures IMAGING: I have reviewed the latest radiology results PATHOLOGY: I have reviewed the latest pathology results ASSESSMENT/PLAN Kendall Lopez is an 82 year-old RHD male with history of HTN, HLD, T1DM, RA on immunosuppression who presented to an OSH with AMS/aphasia, found to have 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 Now medically stable and admitted to [facility] on 08/27/22 for intensive PT, OT, speech therapy. 09/11 - discussed cognitive recovery expectations with Donna - pending SNF confirmation of 09/12 discharge, patient's son to personally transport patient #Rehabilitation plan for ischemic infarct - Continue comprehensive inpatient rehabilitation care including medicine, nursing, physical therapy, occupational therapy, speech therapy, recreational therapy and rehabilitation psychology. Memory Memory is challenge especially antegrade Speech therapy recs: Reinforced introduction to memory book. While referencing calendar, pt ID date, day, mo, yr. Speech Word-finding expressive aphasia noted Agitation None currently Pain No concerns at this time Sleep No concerns at this time 8. Bowel/Bladder a. No concerns at this time 9. Nutrition a. No concerns at this time. Full diet 10. Decreased mood a. No SI/HI - rehab psych becoming involved 11. Mobility a. CGA with all transfers, ambulating 200 ft with no AD Meng 12. Cognitive a. Paying bills requires modA->MaxA for money management tasks b. Still requiring maxA cueing to describe object characteristics 13. Self-long term management a. 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 History of old right frontalinfarct, subacute right centrum semioval infarct. Acute/subacute ischemic infarcts in bilateral hemispheres in multiple territories with unknown etiology, currently undergoing extensive workup for feng rce. TTE was negative for atrial mass, which was initial suspicion for a cardioembolic source. Blood cx NGTD and no s/sx of infection, making infective endocarditis very unlikely currently. MRI blackblood had findings most consistent with atherosclerotic changes, with no evidence of vasculitis or other inflammatory process, r/o RA vasculitis. APS labs negative. CT C/A/P overall unremarkable, x1 5mm indeterminate lung nodule and calcified granulomas. Repeat TCD negative. Will work to obtain OSHecho images to ensure there was no prior mass seen. Continue neuro checks with VS monitoring. Continue goals for normotension, normothermia, eunatremia- goal 135-145, and euglycemia: BG <180. The pt remains on ASA 325mg daily and DVT ppx - SQH [id number]. 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 Seems mostly good control at home. Will cont to monitor BGcontrol on current regimen. Appreciate endocrinology recs/assistance as needed. - Lantus 16u PM - nutritional insulin 1u:10 carbs - LDSSI w/ meals + qhs - Consult to glycemic control given elevations today and to simplify regimen given cog deficits. 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 Cardiology not concerned and no s/sx of hemodynamic compromise or tamponade.Plan for further monitor outpatient w/ his rn trauma. - outpatient cardiology f/u and eval #ARNAV - Unclear baseline sCr - though prior Cr 1.1 a year ago. Cr 1.32 on admission, now 1.15 on 02/27/22. #HLD - rosuvastatin 5mg #Rheumatoid Arthritis Patient does not endorse any arthritic pain or flare-up episode. To maintain optimal immunosuppression, restarted home RA meds. - continue sulfasalazine and hydroxychloroquine #Asthma, stable - uses fluticasone/salmetrol at home - duoneb prn ordered Inpatient Checklist: Fluids/Electrolytes/Nutrition: Diabetic diet Prophylaxis: SQH q12h Lines/Drains/Airways: pIV Disposition: Neurology acute care Code Status: FULL Contacts: Liyah Lopez - - [phone] GENERAL HEALTH MANAGEMENT Diet: Adult Diet Regular; Carbohydrate managed Bowel Status: Spontaneous, continent Bladder Status: Spontaneous, continent DVT Prophylaxis: SubQ hep Estimated Length of Stay: 10-14 Discharge Location: Home ANTICIPATED FOLLOW-UP AFTER DISCHARGE Rehab Medicine within 1 month after discharge Primary Care Physician within 1 weeks after discharge Therapies: To be determined On discharge, the patient will need the following follow up: - endocrinology - PCP - stroke clinic - cardiology to follow up the cardiac event monitor Patient discussed with resident, Dr. Paul Stanford. * Noa Nixon PT - 09/11/2022 10:56 AM PDT Land Mobile Radio Technician Progress- Discharge Planning Note Visit Information Admission diagnosis: Cerebrovascular accident (CVA) of left basal ganglia (HCC) Expected Discharge Date: Discharge Plan: [facility] Insurance Information MEDICARE/MEDICARE PART A AND B Subscriber: Kendall Lopez Subscriber#: [id number] Group#: -- Precert#: -- [employer]/[facility] AARP MEDICARE SUPPLEMENT Subscriber: Kendall Lopez Subscriber#: [id number] Group#: -- Precert#: -- Primary Care Provider/Care Team: Primary Care Provider: Patient Care Team: Pcp, Outside as PCP - General -Patient provided Land Mobile Radio Technician permission to coordinate hospital discharge appointment, pending community discharge Contact(s) preferred for Weekly Conferences: Liyah Lopez Relation: Preferred Pharmacy for discharge medications: [facility] GCT/Discharge Pharmacy Interventions: PCP- senior insight manager discussed with pt and his rescheduling due to transfer to SNF vs d/c home. Pt's states she will contact the clinic about rescheduling 09/25 at 1:30pm- establish care- Dr. Richar Pettit [facility] - [address] [place] [address], [facility] [address] [place] [address] P: [phone], F: [phone] REFERRAL [facility] [address] [place] [address] [address] [place] [address] -referral faxed 09/11, pt and agreeable for healthcare representative sending referral. Contact info placed in AVS Important Message from Medicare (IM) Staff member intiating contact: Noa Nixon Date of contact: 09/11/22 Staff member informed the Supply Chain Assistant - -planned discharge date, date the beneficiary's financial liability begins, beneficiary's appeal rights, and how and when to initiate an appeal. -veterans contact representative signed, provided copy, original placed in chart Supply Chain Assistant contacted: Liyah Lopez Scheduled Appointments:(None, if blank) Provider Department 09/23/2022 2:[address] [facility] Arrive at: [facility] - 5th Floor ([id number]) 12/09/2022 8:[address] [facility] Arrive at: [address] (5[facility]) Appointments Outside of Medicine and those not yet scheduled: (None, if blank) Contact information for follow-up [facility] - Physical Therapy & Rehabilitation [address] [place] [address] Next Steps: Schedule an appointment as soon as possible for a visit Instructions: Call to schedule outpatient PT, OT and speech therapy for after you are released fromthe [facility] Facility [facility] [place] Specialty: Cardiology [address] [facility] [address] Next Steps: Schedule an appointment as soon as possible for a visit in 1 month(s) Instructions: Specialist follow up: for the results of your cardiac event monitor -If you are not able to return to [facility], you can call the clinic to discuss a telemedicine visit [facility] Endocrinology [facility] Specialty: Endocrinology [address] [place] [address] Next Steps: Schedule an appointment as soon as possible for a visit in 1 month(s) Instructions: Specialist follow up: for Management of diabetes type I and insulin regimen -If you are not able to return to [facility], you can discuss with your PCP being referred to a provider closer to your home Dr. Richar Pettit [facility] - [address] [place] [address], [address] [place] [address] Phone: [phone] Next Steps: Go to Instructions: APPOINTMENT AT: 1:30pm Appointment to establish care with the primary care provider. You will transition and see Dr. Uriel Tellez in November -provider can write prescriptions for medication refills [facility] [address] [place] [address] [address] [place] [address] Next Steps: Schedule an appointment as soon as possible for a visit in 4 week(s) Instructions: A referral has been sent for you to follow-up with an outpatient Rehab Medicine provider in 4-6 weeks. Provider will monitor ongoing progress with therapies. * Shira Ruiz, OT - 09/11/2022 9:41 AM PDT Treatment Note 09/11/22 0815 OT Last Visit OT Diagnosis Kendall Lopez is an 82 year-old RHD male with history of HTN, HLD, T1DM, RA on immunosuppression who presented to an OSH with AMS/aphasia, found to have acute left basal ganglia and thalamus infarcts, subacute right centrum semioval and old right frontal infarcts with etiology 2/2 ath erosclerotic disease. OT Consideration Type 1 diabetes; Decreased memory, dec insight into safety, bed alarm Therapy Minutes (IP Rehab Only) Family/Caregiver Present No OT Treatment START Time 0815 Treatment End Time 0900 OT Individual 45 OT Daily Recommendations OT Daily Recommendations Showers MWF, toileting with CGA to toilet, ambulating with FWW SBA Subjective Patient Report/Self-Assessment patient alert and agreeable to OT [employer] Is an child and adolescent psychologist used? No Self-Care/Home Management Time Entry (min) 10 Minutes Oral Hygiene Supervision / Stand by assistance Oral Hygiene Comments standing at sink Putting on/taking off footwear Supervision / Stand by assistance Putting on/taking off footwear Comment seated EOB to hannah shoes using dressing stick, patient requiring cues to utilize dressing stick and increased time to complete Bed Mobility Rolling Left Independent Rolling Right Independent Supine>Sit Independent Sit>Supine Independent Transfers Sit<>Stand Supervision / Stand by assistance Sit <> Stand Comments FWW Functional Mobility Distance room <> therapy gym Assistance Needs Supervision / Stand by assistance Functional Mobility Assistive Device Details Front wheeled walker Therapeutic Activity Therapeutic Activity Time Entry 35 Therapeutic Activity 1 Patient engaging in task of snap circuit boards to address: visual perception, visual scanning, problem solving, and fine motor coordination. Patient completing level #1 with mild complexity successfully with moderate verbal/tactile cues and increased time. OT Activities Total time minutes Total Exercise/Activity Time Rows 45 Pt was left in bed with call light in reach, bed alarm on. GABRIELLA Ghotra, OTR/L * Mamta Branham LSWAIC - 09/11/2022 9:12 AM PDT Social Work Progress Note Service: REHAB MEDICINE BLUE 1 Admit reason: This is a 82 year old old male admitted for Cerebrovascular accident (CVA) of left basal ganglia (HCC) [I63.81]. Funding: Insurance Information MEDICARE/MEDICARE PART A AND B Subscriber: Kendall Lopez Subscriber#: [id number] Group#: -- Precert#: -- [facility] AARP MEDICARE SUPPLEMENT Subscriber: Kendall Lopez Subscriber#: [id number] Group#: -- Precert#: -- Healthcare Decision Making Information: Pt, as able. His is primary DPOA for Healthcare and his daughter, Mamta, is secondary DPOA Contact in Following Order for Legal Next of Kin Decision Making: Patient as able Liyah Lopez: DPOA/: [phone] Mamta Lopez: Secondary DPOA/Daughter: [phone] Gulshan Lopez: Son: [phone] Living Situation Prior to Admit: Home;Spouse/Significant other Anticipated Living Situation Post Discharge/Needs: Home;[facility] facility Anticipated Discharge Date: 09/12/2022 ASSESSMENT: Per chart: Kendall Lopez is an 82 year-old RHD male with history of HTN, HLD, T1DM, RA on immunosuppression who presented to an OSH with AMS/aphasia, found to have 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 INTERVENTION: Pt has been accepted to [facility]. Per Rehab MD, pt was cleared from vernon auris precautions. FARIDA Pollack at [facility] ([phone]), updated and confirms that they can admit pt on Thursday, 09/12, with a 10:30am discharge from [facility]. FARIDA Pollack, also updated the pt's COVID test from last night was negative. Per PT, pt is safe to transport to SNF via personal ride. Pt's son, Gulshan, will provide pt ride to [facility] on Thursday, 09/12.Gulshan will be here between 10-10:30am on Thursday. FARIDA Pollack, update that pt will transport via personal vehicle. FARIDA Pollack, reports that they are unable to do carb counts for insulin doses. Endocrinology PA updated. PA will speak with pt and about alternative options. TBD if plan is still to discharge to SNF v. Home since glycemic plan will change at SNF. Discharge Information: [facility] [address] [facility], [place] [address] [place] [address] RN Report: [phone] Jaki AC: [phone] PLAN OR OUTCOME: - SW to coordinate dishcarge to [facility] of [facility] - SW will fax discharge paperwork to AC at [facility] - SW will initiate discharge packet and give to PSS to complete SW Interventions: Discharge planning;Consult with healthcare team ANTHONY Centeno * Bryant Guerrero, PT - 09/10/2022 3:52 PM PDT Physical Therapy 09/10/22 1430 PT Last Visit PT Received On 08/28/22 PT Diagnosis 82 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 No Subjective Patient Report/Self-Assessment Pt presents supine in bed. Walking up. Agreeable to therapy PT Daily Recommendations PT IRF Daily Recommendations SBA for transfers and walking with FWW. Community Level 0. cleared for transfers and walking. Therapeutic Exercise Therapeutic Exercise Time Entry 10 Therapeutic Exercise Activity 1 NuStep x10 minutes with UEs and LEs, level 2 Therapeutic Activity Therapeutic Activity Time Entry 20 Therapeutic Activity 1 Bed mob with ind to EOB. Pt indicates need to urinate. SBA provided to amb to bathroom with fww. Therapeutic Activity 2 Pt stands to urinate with SBA Therapeutic Activity 3 Re dons pants with SBA. Amb within room to sink to wash hands with FWW and SBA Therapeutic Activity 4 Car transfer with FWW and SBA Gait Training Gait Training Time Entry 15 Gait Training Activity 1 Gait room to gym with FWW and SBA, as well as back at end of session Gait Training Activity 2 Amb x350' without device and CGA, increasing forward lean and festination with fatigue Gait Training Activity 3 amb with FWW x460' with SBA Gait Training Activity 4 Cues for longer strides throughout, slower pace particularly without walker * Shira Ruiz, OT - 09/10/2022 3:48 PM PDT Treatment Note 09/10/22 0815 OT Last Visit OT Diagnosis Kendall Lopez is an 82 year-old RHD male with history of HTN, HLD, T1DM, RA on immunosuppression who presented to an OSH with AMS/aphasia, found to have acute left basal ganglia and thalamus infarcts, subacute right centrum semioval and old right frontal infarcts with etiology 2/2 ath erosclerotic disease. OT Consideration Type 1 diabetes; Decreased memory, dec insight into safety, bed alarm Therapy Minutes (IP Rehab Only) Family/Caregiver Present Yes (spouse) OT Treatment START Time 814 Treatment End Time 914 OT Individual 60 OT Daily Recommendations OT Daily Recommendations Showers MWF, toileting with CGA to toilet, ambulating with FWW SBA Subjective Patient Report/Self-Assessment patient alert and agreeable to OT [employer] Is an child and adolescent psychologist used? No Self-Care/Home Management Time Entry (min) 60 Minutes Grooming Supervision / Stand by assistance Grooming Comments to wash hair, seated on shower seat Upper Body Dressing Supervision / Stand by assistance UE Dressing Comments to doff/hannah tshirt Lower Body Dressing Contact guard assist (touching/steadying assistance) LE Dressing Comments CGA for balance in standing during task, verbal cues for recalling use of adaptive equipment for donning, spouse providing cues and assist Putting on/taking off footwear Contact guard assist (touching/steadying assistance) Putting on/taking off footwear Comment seated to hannah shoes, patient benefiting from cues for use of adaptive equipment Toileting Contact guard assist (touching/steadying assistance) Toileting Comments from standard toilet - verbal cue to lower pants/brief prior to sitting Bathing Minimum Assist (less than 25% help needed) Bathing Comments completed seated on shower seat; patient's spouse providing physical assist and assist for sequencing task; technique improved from previous however would continue to benefit from training to ensure safety during task. ADL Comments Patient's spouse providing assistance for ADLs this session, benefitting from cues to recall techniques to maximize safety however with improved recall from prior training session on 09/08. IADL Comments Heart Monitor Education: patient's spouse does not recall details of education provided previous session, OT reviewed and directed patient's spouse to doff monitor for shower, place on city dispatch supervisor, ensure charging, and donning after shower. Will benefit from review to assess recall in future sessions Bed Mobility Rolling Left Independent Rolling Right Independent Transfers Shower Transfer Contact guard assist (touching/steadying assistance) Shower Transfers Comments FWW OT Activities Total time minutes Total Exercise/Activity Time Rows 60 Pt was left in chair at bedside with call light in reach, S/O and GARCIA present. Shira Ruiz OTD, OTR/L * Shira Ruiz OT - 09/10/2022 3:42 PM PDT Occupational Therapy Progress Note Patient Name: Kendall Lopez Preferred name: Kendall Lopez Today's Date: 09/10/2022 General Visit Information OT Diagnosis: Kendall Lopez is an 82 year-old RHD male with history of HTN, HLD, T1DM, RA on immunosuppression who presented to an OSH with AMS/aphasia, found to have 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 OT Consideration: Type 1 diabetes; Decreased memory, dec insight into safety, bed alarm Encounter Diagnoses Name Primary? Cerebrovascular accident (CVA) of left basal ganglia (HCC) Yes Acute cerebral infarction (HCC) Pericardial effusion Type 1 diabetes mellitus without complication (HCC) No past medical history on file. No past surgical history on file. Time Intensity Document Type: Progress Family/Caregiver Present: No OT Treatment START Time: 1300 Treatment End Time: 1345 OT Individual: 45 Missed Therapy Session Reason: Other (Comment) (using restroom) [employer] Is an child and adolescent psychologist used?: No Subjective Patient Report/Self-Assessment: patient asleep upon arrival, agreeable to OT Patient Stated Goal: pt's spouse present for caregiver training. Her daughter and son also present. Home Living & Prior function Home Living Type of Home: Multilevel home Entry Stairs: 3 KAREN Indoor Stairs: 1 FOS Lives With: Spouse Assistance Available at Home : 24 hour assistance Bathroom Shower/Tub: Walk-in shower Bathroom Toilet: Standard Mobility Equipment Owned: Four wheeled walker or rollator Durable Medical Equipment Owned: Shower chair with back Prior Function BADLs: Requires assist (since stroke in June) IADLs: Independent (prior to stroke in June per pt report; unable to elaborate on whether he needed any assistance with ADLs/iADLs since prior stroke in June) Functional Mobility: Independent 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 Leisure and Hobbies: photography, bird watching Responsibilities: Driving Skin/Integumentary Skin/Integumentary Skin/Integumentary: Grossly intact, IV to B forearms Edema Edema Edema: Within Functional Limits Extremity Assessments RUE Assessment RUE Assessment: Exceptions to WFL RUE Assessment Comments: baseline limitations from arthritis; wrist limited to neutral d/t arthritis; ROM grossly WFL, limited in shoulder flexion to roughly 140 deg RUE Strength R Shoulder Flexion: 3-/5 R Shoulder Extension: 3+/5 R Elbow Flexion: 4-/5 R Elbow Extension: 4-/5 RUE Tone RUE Assessment Comments: baseline limitations from arthritis; wrist limited to neutral d/t arthritis; ROM grossly WFL, limited in shoulder flexion to roughly 140 deg Right Hand Assessment Right Hand Assessment: Exceptions to WFL LUE Assessment LUE Assessment: Exceptions to WFL LUE Strength L Shoulder Flexion: 3-/5 L Shoulder Extension: 3+/5 L Elbow Flexion: 3+/5 L Elbow Extension: 3+/5 Hand Function Right Special Education Coordinator Strength: 28.6 Left Special Education Coordinator Strength: 25 RLE Assessment RLE Assessment: Exceptions to WFL (see PT note for details) LLE Assessment LLE Assessment: Exceptions to WFL (see PT note for details) Coordination Coordination Movements are Fluid and Coordinated: No Upper Extremities: Finger to Nose, Rapid alternating movement, Sequential finger opposition, 9 HolePeg test, Box and Blocks Finger to Nose- Right: Within Functional Limits Finger to Nose- Left: Within Functional Limits Upper Extremities TONG- Right: Impaired Upper Extremities TONG- Left: Impaired Sequential finger opposition- Right: Impaired Sequential finger opposition- Left: Impaired Upper Extremities 9 Hole Peg Test right (seconds): 45 Seconds Upper Extremities 9 Hole Peg Test left (seconds): 48 Seconds Upper Extremities Box and Blocks right: 30 Upper Extremities Box and Blocks left: 32 Coordination and Movement Description: Baseline deficits from arthritis however reports noted increase in difficulty Sensation Sensation Sensation comments: patient reports numbness/tingling throughout all extremities however appears torespond appropriately to tactile stimulation consistently Proprioception Proprioception Right upper extremity: Intact Left upper extremity: Intact Vision Vision Vision Comments: Patient wears glasses, denies changes in vision however may benefit from vision screen Perception Perception Inattention/Neglect: Cues to attend right visual field, Cues to attend left visual field Initiation: Appears intact Motor Planning: Appears intact Perseveration: Not present Cognition Cognition Overall Cognitive Status: Impaired Arousal/Alertness: Delayed responses to stimuli Orientation Level: Oriented to person, Disoriented to time Following Commands: Follows one step commands with repetition Communication : Patient communicating verbally Safety Judgment: Decreased awareness of need for safety, Decreased awareness of need for assistance Awareness of Errors: Decreased awareness of errors Deficits: Decreased awareness of deficits Attention Span: Difficulty attending to directions, Difficulty dividing attention Memory: Decreased short term memory, Decreased recall of recent events Problem Solving: Assistance required to identify errors made, Assistance required to generate solutions Executive Functions: Decreased insight into deficits Self-Care/Home Management Time Entry (min): 30 Minutes Eating: Supervision / Stand by assistance Eating Comments: 1:1 feed per [employer] recommendations Grooming: Supervision / Stand by assistance Grooming Comments: Standing at sink to wash hands Oral Hygiene: Supervision / Stand by assistance Oral Hygiene Comments: to brush teeth standing at sink Upper Body Dressing: Supervision / Stand by assistance UE Dressing Comments: to doff/hannah tshirt Lower Body Dressing: Contact guard assist (touching/steadying assistance) LE Dressing Comments: CGA for balance in standing during task, verbal cues for recalling use of adaptive equipment for donning, spouse providing cues and assist Putting on/taking off footwear: Contact guard assist (touching/steadying assistance) Putting on/taking off footwear Comment: seated to hannah shoes, patient benefiting from cues for use of adaptive equipment Toileting: Contact guard assist (touching/steadying assistance) Toileting Comments: from standard toilet - verbal cue to lower pants/brief prior to sitting Bathing: Minimum Assist (less than 25% help needed) Bathing Comments: completed seated on shower seat; patient's spouse providing physical assist and assist for sequencing task; technique improved from previous however would continue to benefit from training to ensure safety during task. ADL Comments: Patient's spouse providing assistance for ADLs this session, benefitting from cues torecall techniques to maximize safety however with improved recall from prior training session on 09/08 Money Management: Bill pay: attempted scanning activity using simulated bills. pt needs moderate cueing to locate date, bill amounts. Pt is currently max A/dep for money management tasks. IADL Comments: Heart Monitor Education: OT educating patient and spouse on directions for heart monitor, including placement of electrodes, charging of monitor, and expected wear time. To assess recall in future sessions Balance Static Sitting Level of Assistance: Supervision / Stand by assistance Static Sitting Balance Comment: seated EOB Dynamic Sitting Balance Level of Assistance: Supervision / Stand by assistance Dynamic Sitting Balance Comment: seated EOB Static Standing Balance Level of Assistance: Supervision / Stand by assistance Static Standing Balance Comment: FWW Dynamic Standing Balance Level of Assistance : Supervision / Stand by assistance Dynamic Standing-Comment: FWW Mobility Rolling Left: Independent Rolling Right: Independent Supine>Sit: Independent Sit>Supine: Independent Scooting: Independent Sit<>Stand: Supervision / Stand by assistance Cuing Used: Verbal Sit <> Stand Comments: with FWW Bed<>Chair/WC: Contact guard assist (touching/steadying assistance) Bed<>Chair/Wheelchair Comments: w/ FWW Toilet Transfer: Contact guard assist (touching/steadying assistance) Toilet Transfers Comments: FWW Shower Transfer: Contact guard assist (touching/steadying assistance) Shower Transfers Comments: FWW Distance: room <> therapy gym Assistance Needs: Supervision / Stand by assistance Functional Mobility Assistive Device Details: Front wheeled walker Functional Mobility Comments: FWW; CGA-supervision Activity Tolerance Activity Tolerance Endurance: Tolerates 30 min of activity with multiple rests Assistive Technology Assistive Technology [facility] based AT needs: Other (Comment) (standard call light) Assessment OT Assessment OT Assessment Results: Impaired ADL status, Impaired functional mobility, Impaired upper extremity strength, Impaired lower extremity strength, Impaired balance, Impaired safety and/or judgement during ADL's, Impaired cognition, Decreased endurance/activity tolerated, Impaired sensation, Impaired fine motor coordination, Impaired gross motor coordination, Impaired IADL's Impact on Function and Participation: This week, Kendall has been working towards goals of increasing independence with ADL and IADL tasks. Kendall has made progress towards these goals, however continues to require assist with IADLs and some ADLs and supervision for ADLs. At this time, Kendall will continue to benefit from daily intensive occupational therapy to address deficits affecting participation and independence in ADLs, IADLs, and functional mobility. Recommending follow up with occupational therapy services after discharge and use of recommended bathroom equipment (shower seat). Functional Prognosis: Fair Evaluation/Treatment Tolerance: Patient tolerated treatment well OT Daily Recommendations: Showers MWF, toileting with mod A to toilet, ambulating with FWW and CGA-min A Plan Plan Treatment Interventions: Self-care/Home management, Caregiver education/training, Therapeutic exercise, Therapeutic activities, Neuromuscular re-education, Cognitive skills development, Manual therapy techniques, Modalities, Sensory integration OT Plan: Skilled OT OT Frequency: 1-2x/day, 5-6 days/week Estimated length of stay: 10-14 days OT Discharge Recommendations: Follow up with OT at next level of care Assistance with : ADLs, IADLs, functional mobility Supervision with : ADLs Equipment Recommended: Shower seat with back Goals: Inpatient Rehab Goals Feeding Discharge Goal Level of Assist: Independent Discharge Goal Status: Progressing Grooming STG Time Frame: 09/03 STG Level of Assist: Contact guard assist (touching/steadying assistance) STG Status: Met Discharge Goal Level of Assist: Independent Discharge Goal Status: Progressing Upper Body Dressing STG Time Frame: 09/10 STG Level of Assist: Contact guard assist (touching/steadying assistance) STG Status: Met Discharge Goal Level of Assist: Independent Discharge Goal Status: Progressing Lower Body Dressing STG Time Frame: 09/03 STG Level of Assist: Minimum Assist (less than 25% help needed) STG Status: Met Discharge Goal Details: from bed level Discharge Goal Level of Assist: Independent Discharge Goal Status: Progressing Bathing Discharge Goal Level of Assist: Supervision / Stand by assistance Discharge Goal Status: Progressing Toileting Discharge Goal Level of Assist: Supervision / Stand by assistance Discharge Goal Status: Progressing Toilet Transfers Discharge Goal Level of Assist: Supervision / Stand by assistance Discharge Goal Status: Progressing Tub/Shower Transfers Discharge Goal Level of Assist: Supervision / Stand by assistance Discharge Goal Status: Progressing Discharge Goal Time Frame Discharge goals completed by: 10-14 days Shira Ruiz OT 09/10/2022 * Anita Griffin, PT - 09/10/2022 3:37 PM PDT Physical Therapy Progress Note Patient Name: Kendall Lopez Today's Date: 09/10/2022 Time Intensity General PT Documentation Type: Progress General Visit Information PT Diagnosis: 82 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 No past surgical history on file. Subjective Subjective Patient Report/Self-Assessment: Pt agrees to therapy. Patient Stated Goal(s): To be able to get back home and to walk independently Home Living Home Living Home Living Comments: He lives in [place], can stay on first floor. 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 Cognition Cognition Overall Cognitive Status: Impaired Alertness: Appropriate responses to stimuli Orientation Level: Other (Comment) (Not oriented to date or day. Oriented to name and birthdate, place and situation.) Cognition Comments: Slowed processing and initiation. Extremity Assessments Right Upper Extremity RUE Assessment RUE Assessment: Within Functional Limits Left Upper Extremity LUE Assessment LUE Assessment: Exceptions to WFL LUE ROM (degrees) L Shoulder Flexion: 120 L Shoulder Extension: NT L Shoulder ABduction: 90 L Shoulder Internal Rotation : 45 L Shoulder External Rotation: 35 L Wrist Flexion: NT L Wrist Extension: NT LUE ROM Comments: L shoulder ROM limited by pain, tight endfeel LUE Strength L Shoulder Flexion: 4/5 L Shoulder ABduction: 5/5 L Shoulder Internal Rotation: 5/5 L Shoulder External Rotation: 4/5 L Elbow Flexion: 5/5 L Elbow Extension: 3-/5 LUE Strength Comments: Strength testing limited at shoulder per pain and weakness, also not able tomove actively through full elevation ROM Right Lower Extremity RLE Assessment RLE Assessment: Exceptions to WFL ROM RLE (degrees) RLE ROM Comments: LE ROM grossly WNL RLE Strength R Hip Flexion: 5/5 R Hip Extension: 4/5 R Hip ABduction: 3+/5 R Knee Flexion: 5/5 R Knee Extension: 5/5 R Ankle Dorsiflexion: 4/5 Left Lower Extremity LLE Strength L Hip Flexion: 5/5 L Hip Extension: 4/5 L Hip ABduction: 3+/5 L Knee Flexion: 5/5 L Knee Extension: 5/5 L Ankle Dorsiflexion: 4/5 Tone Tone Right Upper Extremity Tone: Within Functional Limits Sensation and Proprioception Sensation Light Touch: No apparent deficits Sensation Comments: He reports B feet are always partially tingly Proprioception Proprioception: Partial deficits in the LLE Proprioception Comments: R great toe WNL, L great toe less able to discern direction Coordination Coordination Coordination and Movement Description: Slow movements noted during testing but no gross coordination impairments noted with FTN, TONG at B UE and LE Perception Perception Inattention/Neglect: Cues to attend right visual field (intermittently for obstacles on R side) Skin/Integumentary Skin/Integumentary Skin/Integumentary: grossly WNL Vision/Vestibular/Occulomotor Vision Visual Acuity Details: Wears glasses Balance Static Sitting Balance Static Sitting Balance Level of Assistance: Independent Static Sitting Balance Comments: Able to sit with and without UE support Dynamic Sitting Balance Dynamic Sitting Balance Level of Assistance: Independent Static Standing Balance Static Standing Balance Level of Assistance: Supervision / Stand by assistance Static Standing Balance Comments: With FWW Dynamic Standing Balance Dynamic Standing Balance Level of Assistance: Supervision / Stand by assistance Dynamic Standing Balance Comments: During Jarrell Balance assessment Activity Tolerance Activity Tolerance / Endurance Activity Tolerance /Endurance: Tolerates 30+ min of activity without fatigue Functional Mobility Bed Mobility Rolling Left: Independent Rolling Right: Independent Supine to Sit: Independent Sit to Supine: Independent Scooting: Independent Transfers Sit<>Stand: Supervision / Stand by assistance Bed<>Chair/WC: Supervision / Stand by assistance Car Transfer: Supervision / Stand by assistance Floor Recovery: Contact guard assist (touching/steadying assistance) (with use of intermediate surface) Picking Up an Object: Supervision / Stand by assistance Wheelchair Activities WC Size: N/A Ambulation Distance: 450 Level of Assistance : Supervision / Stand by assistance Assistive Device Used: Front wheeled walker Gait quality/descriptors: Flexed posture;Decreased foot clearance;Decreased step length;Decreased pace 10 feet: Supervision / Stand by assistance 50 feet 2 turns: Supervision / Stand by assistance 150 feet: Supervision / Stand by assistance Uneven Terrain: Supervision / Stand by assistance (with FWW) Stairs Number of steps: 12 Level of Assistance : Supervision / Stand by assistance Style: Reciprocal Assistive Device Used: 2 railings 4 Steps: Supervision / Stand by assistance 12 Steps: Supervision / Stand by assistance Curb Curb Assessment: Supervision / Stand by assistance Curb Comments: with FWW Outcome Measures Jarrell Balance Scale 1. Sitting to Standing: Able to stand independently using hands 2. Standing Unsupported: Able to stand safely for 2 minutes 3. Sitting with Back Unsupported but Feet Supported on Floor or on a Stool: Able to sit safely and securely for 2 minutes 4. Standing to Sitting: Sits safely with minimal use of hands 5. Transfers: Able to transfer safely definite need of hands 6. Standing Unsupported with Eyes Closed: Able to stand 10 seconds safely 7. Standing Unsupported with Feet Together: Able to place feet together independently and stand 1 minute safely 8. Reach Forward with Outstretched Arm While Standing: Can reach forward 12 cm (5 inches) 9. Fabricator Special Items Object from Floor from a Standing Position: Able to pickling operator slipper but needs supervision 10. Turning to Look Behind Over Left and Right Shoulders While Standing: Looks behind one side onlyother side shows less weight shift 11. Turn 360 Degrees: Able to turn 360 degrees safely but slowly 12. Place Alternate Foot on Step or Stool While Standing Unsupported: Able to complete 4 steps without aid with supervision 13. Standing Unsupported One Foot in Front: Able to place foot ahead independently and hold 30 seconds 14. Standing on One Leg: Tries to lift leg unable to hold 3 seconds but remains standing independently Jarrell Balance Score: 43 Timed Up and Go Test Trial 1 - How many seconds did it take to complete the tasks?: 39.84 seconds Trial 2 - How many seconds did it take to complete the tasks?: 38.75 seconds TUG Trials Average (seconds):: 39.3 seconds Comment: with FWW 30 Second Sit to Stand Number of times performed sit to stand (30 seconds): 7 using chair arms to push up 5x Sit to Stand Five time sit to stand: 17.06 Seconds 10 Meter Walk Test How many seconds did it take to complete 10 meters?: 17.72 seconds Comments:: with FWW Assessment Kendall has made good progress this week in functional mobility, gait, balance, and endurance. He performs bed mobility independently and transfers with standby assistance. He is able to ambulate with afront-wheeled walker and standby assistance or no assistive device and contact guard assistance. Heis able to navigate stairs with bilateral railings and standby assistance. He continues to score asan increased fall risk on the Jarrell Balance Scale; however, he demonstrates improved balance and balance reactions during therapy sessions activities, such as modified tandem stance. His completed caregiver training for mobility and a home exercise program. He will benefit from continued skilled physical therapy to continue to address strengthening, endurance, functional mobility, gait, balance, and pt and family education. PT Assessment PT Impairments: Decreased strength;Decreased range of motion;Impaired balance;Decreased mobility;Decreased cognition;Impaired tone;Difficulty ambulating;Decreased endurance;Decreased safety awareness PT Assessment / Impact on Function: Kendall presents significantly below his baseline level of independence. He currently requires standby assistance for transfers, walking, stairs, and uneven surfaces.He is limited in community mobility and in his roles as and father. Prognosis: Good Barriers to Discharge: Assistance required PT IRF Daily Recommendations: SBA for transfers and walking with FWW. Community Level 0. cleared for transfers and walking. Plan Plan Treatment/Interventions: Therapeutic exercise;Therapeutic functional activities;Neuromuscular re-education;Gait/Stairs training;Patient/family training;Equipment eval/education;Group exercise PT Dosage: 1-2x/day, 5-6 days/week Recommended Length of Stay: 10 days PT Discharge Recommendations: Outpatient PT PT Supervision Recommendations: Functional mobility, walking, stairs PT Discharge Equipment: Front wheeled walker PT Discharge Equipment Status: FWW in room. Goals Bed Mobility Goal Details: Independent supine to sit STG Estimated Completion Date: 09/02/22 STG Status: Met Goal Details: Independent bed mobility LTG Time Frame: By discharge Discharge Goal Status: Met Transfers Goal Details: SBA sit to stand with AD as needed STG Estimated Completion Date: 09/02/22 STG Status: Met Goal Details: Independent sit to stand with LRAD LTG Time Frame: By discharge Discharge Goal Status: Progressing Indoor Ambulation Goal Details: Able to walk 150 feet with LRAD and CGA STG Estimated Completion Date: 09/02/22 STG Status: Met Goal Details: Independent household mobility with LRAD LTG Time Frame: By discharge Discharge Goal Status: Progressing Outdoor Ambulation Goal Details: Able to negotiate a ramp and basic non-level terrain with LRAD and CGA STG Estimated Completion Date: 09/02/22 STG Status: Progressing Goal Details: Able to negotiate a ramp and basic non-level terrain with LRAD and SBA LTG Time Frame: By discharge Discharge Goal Status: Met Stairs Goal Details: Able to negotiate up and down 12 steps with one rail with SBA LTG Time Frame: By discharge Discharge Goal Status: Met Floor Recovery Goal Details: Able to manage floor recovery with a transitional surface and SBA LTG Time Frame: By discharge Discharge Goal Status: Met (SBA-CGA) Anita Griffin, PT 09/10/2022 * Lida Storm SLPS - 09/10/2022 2:22 PM PDT Speech Language Pathology Treatment Patient Name: Kendall Lopez Today's Date: 09/10/2022 Subjective Patient Report/Self-Assessment: Pt seen in therapy room, agreeable to session. 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 No past surgical history on file. General Visit Information [employer] Last Visit [employer] Received On: 09/10/22 [employer] Document Type: Progress [employer] Total Treatement Time in Minutes: 45 Minutes Visual Acuity: Corrective lenses Auditory Acuity: Functional in conversation Family/Caregiver Present: Yes Family/Caregiver Comments: Prior Function Prior Function: Pt reports he lives in [place] with his . Neurology note states: right frontal infarct in the MCA/AYLIN territory in June. Unclear whether pt had residual cognitive-communicationdeficits, plan to discuss with family when present. 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 - People: while referencing photo page, required mod A to ID PT, but recalled activities. ID OT, [employer] and activities I'ly while referencing photo pages. - Discussed egocentric photos brought in by SO (dog, lifelong friends, sailboat). Pt recalled names, relevance of photos, and produced notably more spontaneous output when discussing photos. VERBAL EXPRESSION -Completed daily menu with mod-max A verbal/visual cues. Noted improvement of processing speed and initiation of verbal output with reduced cognitive load e.g removing menu, providing 3-4 written choices, asking simple questions. Pt unable to generate menu item when asked open ended questions, what would you like for lunch? What would you like to drink? But advocated for being provided with choices when given min A verbal cue to do so. Assessment/Plan Swallow Recommendations Diet Recommendations: Regular;0-Thin liquids Medication Administration Recommendations: Meds as tolerated Oral care: Frequency: 2-3x per day Aspiration Precautions: As upright as medically possible for all oral intake;Fully alert for all POintake;One sip at a time;Cut up/set up Cognitive Communication Recommendations : Allow patient breaks as needed;Follow consistent routine as able;Reduce external stimuli (TV, smart phone, electronic devices, number of visitors) Communication Recommendations: Allow automatic function as able;Make sure you have patient's attention before speaking to them;Keep verbal input short, simple, direct;Give patient extra time to respond and speak;Try asking simple yes/no questions I have reviewed the documentation of this visit and I confirm that I was present for the entire session and not engaged in other tasks. I directed / guided the services and am responsible for the assessment and treatment of this patient in this visit. - Juanjose Boyer, MS, [facility]-[employer] * Isaactan Escalonaanjelevonne Mamta, [facility] - 09/10/2022 12:19 PM PDT Social Work Progress Note Service: REHAB MEDICINE BLUE 1 Admit reason: This is a 82 year old old male admitted for Cerebrovascular accident (CVA) of left basal ganglia (HCC) [I63.81]. Funding: Insurance Information MEDICARE/MEDICARE PART A AND B Subscriber: Kendall Lopez Subscriber#: [id number] Group#: -- Precert#: -- [facility] MEDIC[facility] SUPPLEMENT Subscriber: Kendall Lopez Subscriber#: [id number] Group#: -- Precert#: -- Healthcare Decision Making Information: Pt, as able. His is primary DPOA for Healthcare and his daughter, Mamta, is secondary DPOA Contact in Following Order for Legal Next of Kin Decision Making: Patient as able Liyah Lopez: DPOA/: [phone] Mamta Lopez: Secondary DPOA/Daughter: [phone] Gulshan Lopez: Son: [phone] Living Situation Prior to Admit: Home;Spouse/Significant other Anticipated Living Situation Post Discharge/Needs: Home;FPC facility Anticipated Discharge Date: 09/12/2022 ASSESSMENT: Per chart: Kendall Lopez is an 82 year-old RHD male with history of HTN, HLD, T1DM, RA on immunosuppression who presented to an OSH with AMS/aphasia, found to have 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 INTERVENTION: Pt has been accepted to [facility]. CHRISTEN spoke with FARIDA Pollack at [facility] ([phone]), who states that they can admit pt onFriday, 09/12, with a 10:30am discharge from [facility] CHRISTEN updated FARIDA Pollack, regarding pending yeast culture and FARIDA Pollack, states that they may want to wait until the results come back before admitting pt. FARIDA Pollack, is going to consult the head filter press tender and CHRISTEN will follow-up with her in the morning. Pt will need COVID test within 48 hours of admission. Rehab MD, battery charger tester and BSRN updated. Per PT, pt is safe to transport to SNF via personal ride. CHRISTEN met with pt and pt's , Donna, at bedside and they are agreeable to pt going to [facility] on Thursday, 09/12. Pt's reports that pt's son, Gulshan, can provide pt a personal ride to [facility] on Thursday. Gulshan will be here between 10-10:30am on Thursday. Rehab Team updated on plan for d/c Thursday at 10:30am. Rehab MD is going to contact Infection Control to see when the c. Auris sample will result. Glycemic Team asked if SNF is able to do carb counts for insulin doses. CHRISTEN l/m for FARIDA Pollack at [facility], asking if that is an option. CHRISTEN waiting to hear back. Discharge Information: [address] [address] RN Report: [phone] Jaki AC: [phone] PLAN OR OUTCOME: - SW to coordinate dishcarge to [facility] Interventions: Discharge planning;Consult with healthcare team ANTHONY Centeno * Joana Chilel PA-C - 09/10/2022 12:18 PM PDT Progress Note Kendall Lopez (Kendall) - : 1940 (82 year old male) Preferred Pronouns: he/him/his Admit Date: 08/27/2022 Code Status: Full Code GLYCEMIC CONTROL PROGRESS NOTE Patient : Kendall Lopez; 82 year old Admit Date: 08/27/2022 CHIEF CONCERN: Mr. Lopez is an 82yo male with history of DM1, HTN, HL, RA admitted as transfer from [facility] for subacute cerebral infarct. He has since transferred to inpatient rehab service, and the Glycemic Control Consult Service was asked to see this patient for the support of diabetes management. HISTORY OF DIABETES: -Diagnosis: Known DM1, diagnosed 1983 by chart review -Outpatient diabetes provider: Dr. Niharika Pedroza, [facility], last visit 12/17/2021 -Home regimen: Clarified with as the following: Glargine 8-10 units nightly Novolog 1unit per 20g carb ICR, Novolog 1unit per every 20 >120 ICF -Home glucose monitoring: Ontuitivestyle Danielle, glucometer also available -Hypoglycemia: low 1% per last CGM reading Nov 2021 100 carbs is 5 units, 1 unit for every 20 over goal INTERVAL HISTORY: Planning to move basal insulin to dinner time beginning tomorrow to reflect home regimen Will receive NPH 7 units tomorrow AM (once), then glargine 16 units QPM moving forward Discharge delayed to ensure adequate teaching/preparation for a home discharge Met with Donna briefly today to provide insulin dosing instructions for home; she was unavailable to review MEDICATIONS: aspirin, 325 mg, Daily heparin, 5,000 units, q12h ASTRID hydroxychloroquine, 200 mg, BID insulin GLARGINE, 16 units, q PM insulin LISPRO, 0-4 units, q HS insulin LISPRO, 0-5 units, TID before meals insulin LISPRO, 0-8 units, q24h insulin LISPRO, , TID before meals rosuvastatin, 5 mg, Daily senna, 17.2 mg, BID sulfaSALAzine, 1,000 mg, BID VITALS: BP 138/72 (Patient Position: Sitting) Pulse 95 Temp 37.2 ??C (Temporal) Resp 16 Ht 5' 11 (1.803 m) Wt 69.4 kg (153 lb) SpO2 95% BMI 21.34 kg/m?? PHYSICAL EXAM: Not performed LABS: Creatinine 1.40 A1c: 6.2% BG trends: fluctuating 119-273 in past 24 hours with early AM outlier of >300 ASSESSMENT / PLAN: Mr. Lopez is an 82yo male with history of DM1, HTN, HL, RA admitted as transfer from [facility] for subacute cerebral infarct. He has since transferred to inpatient rehab service, and the Glycemic Control Consult Service was asked to see this patient for the support of diabetes management. Ultimately the goal is to return home in the care of pt's , Donna but pt may discharge first to SNF. She has helped pt with his insulin to an extent since his prior stroke, per her report. She is comfortable reading BG results on his Freestyle Danielle, and giving insulin injections, generally counting carbs. In regard to his overnight climb in blood sugar, the cause may be inadequate basal insulin at home as we are not seeing this trend here with consistency and we are giving a larger dose of basal insulin than they were doing at home. Another option for the future may be switching to degludec for basal insulin to see if that is of help. Would suggest trying to continue with current insulin to carb ratio and correction scale and see how Donna dose directing these doses. She will have access to meal slips to total Kendall's carbs and determine the dose. She may need prompting that we are using a 1:10 carb ratio rather than 1:20, and a correction factor of 1:50 >150 rather than 1:20>120. Summary of recommendations: Resume glargine q evening now and if dc to SNF, as pt/ will give at home once pt returns home Continue insulin lispro doses as ordered and have Donna calculate doses of lispro with nurses to ensure she adjusts to the current carb counting and correction ratios/scales Encouraged Donna to set up Danielle View for future providers in the event that visits need to be remote so providers can see Kendall's BG trends more readily -Will follow up with Donna by tomorrow to ensure she is clear on the insulin dosing instructions provided today as she did not have time to review with me in person this afternoon Thank you for consulting our service. We will continue to follow-up. Joana Chilel PA-C Glycemic Control Team Division of Metabolism, Endocrinology and Nutrition [facility] * Paul Stanford MD - 09/10/2022 11:53 AM PDT Rehabilitation Medicine Progress Note Kendall Lopez (Kendall) - : 1940 (82 year old male) Preferred Pronouns: he/him/his PCP: Pcp, Outside Code Status: Full Code CHIEF CONCERN / IDENTIFICATION: Kendall Lopez is an 82 year-old RHD male with history of HTN, HLD, T1DM, RA on immunosuppression who presented to an OSH with AMS/aphasia, found to have 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 SUBJECTIVE Discussions with Daphne to determine SNF vs Home Patient feeling well able to describe OT activities not PT MEDICATIONS: Scheduled medications: aspirin, 325 mg, Oral, Daily heparin, 5,000 units, Subcutaneous, q12h ASTRID hydroxychloroquine, 200 mg, Oral, BID insulin GLARGINE, 16 units, Subcutaneous, q PM insulin LISPRO, 0-4 units, Subcutaneous, q HS insulin LISPRO, 0-5 units, Subcutaneous, TID before meals insulin LISPRO, 0-8 units, Subcutaneous, q24h insulin LISPRO, , Subcutaneous, TID before meals rosuvastatin, 5 mg, Oral, Daily senna, 17.2 mg, Oral, BID sulfaSALAzine, 1,000 mg, Oral, BID PRN medications: PRN medications: acetaminophen, dextrose, dextrose, glucagon, glucagon, melatonin, ondansetron, zinc oxide OBJECTIVE T: 36.4 ??C (08/27/222037) BP: 116/84 (08/27/222037) HR: 80 (08/27/222037) RR: 16 (08/27/222037) SpO2: 95 % (08/27/222037) Room air Vitals (Most recent in last 24 hrs) T: 36.9 ??C (09/10/22804) BP: 130/71 (09/10/22804) HR: 85 (09/10/22804) RR: 16 (09/10/22804) SpO2: 100 % (09/10/22804) Room air T range: Temp Min: 36.8 ??C Max: 36.9 ??C Wt 153 lb (69.4 kg) Ht 5' 11 (1.803 m) Body mass index is 21.34 kg/m??. Physical Exam: General: no acute distress, resting comfortably HEENT: normocephalic Cadiac: extremities warm and well perfused Pulmonary: nonlabored breathing on room air Abdomen: nondistended Neuro: alert and awake Wrote a sentence I have a tension... wrote 5-6 more illegible words Aox1-2 continues to be be disoriented to time (knew month/year not day) and location (knew [place],guessed [facility] in ) and have 0/3 delayed recall, 1-2/3 with and strong cueing LABS: Labs (last 24 hours): Chemistries CBC LFT Gases, other - - - 119 - AST: - ALT: - -/-/-/- -/-/-/- - - - - >< - AP: - T bili: - Lact (a): - Lact (v): - eGFR: - Ca: - - Prot: - Alb: - Trop I: - D-dimer: - Mg: - PO4: - ANC: - BNP: - Anti-Xa: - ALC: - INR: - ADDITIONAL RESULTS/IMAGING: MICRO: I have personally reviewed the latest Micro results and cultures IMAGING: I have reviewed the latest radiology results PATHOLOGY: I have reviewed the latest pathology results ASSESSMENT/PLAN Kendall Lopez is an 82 year-old RHD male with history of HTN, HLD, T1DM, RA on immunosuppression who presented to an OSH with AMS/aphasia, found to have 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 Now medically stable and admitted to [facility] on 08/27/22 for intensive PT, OT, speech therapy. 09/10 - adjusting glargine to PM dosing, per glycemic team - continuing caregiver training and glycemic training, pending SNF v. Home decision - Pending yeast culture on c auris screen, contact isolation - no fungus isolated in 5 days #Rehabilitation plan for ischemic infarct - Continue comprehensive inpatient rehabilitation care including medicine, nursing, physical therapy, occupational therapy, speech therapy, recreational therapy and rehabilitation psychology. Memory Memory is challenge especially antegrade Speech therapy recs: Reinforced introduction to memory book. While referencing calendar, pt ID date, day, mo, yr. Speech Word-finding expressive aphasia noted Agitation None currently Pain No concerns at this time Sleep No concerns at this time 8. Bowel/Bladder a. No concerns at this time 9. Nutrition a. No concerns at this time. Full diet 10. Decreased mood a. No SI/HI - rehab psych becoming involved 11. Mobility a. CGA with all transfers, ambulating 200 ft with no AD Meng 12. Cognitive a. Paying bills requires modA->MaxA for money management tasks b. Still requiring maxA cueing to describe object characteristics 13. Self-long term management a. 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 History of old right frontalinfarct, subacute right centrum semioval infarct. Acute/subacute ischemic infarcts in bilateral hemispheres in multiple territories with unknown etiology, currently undergoing extensive workup for feng rce. TTE was negative for atrial mass, which was initial suspicion for a cardioembolic source. Blood cx NGTD and no s/sx of infection, making infective endocarditis very unlikely currently. MRI blackblood had findings most consistent with atherosclerotic changes, with no evidence of vasculitis or other inflammatory process, r/o RA vasculitis. APS labs negative. CT C/A/P overall unremarkable, x1 5mm indeterminate lung nodule and calcified granulomas. Repeat TCD negative. Will work to obtain OSHecho images to ensure there was no prior mass seen. Continue neuro checks with VS monitoring. Continue goals for normotension, normothermia, eunatremia- goal 135-145, and euglycemia: BG <180. The pt remains on ASA 325mg daily and DVT ppx - SQH [id number]. 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 Seems mostly good control at home. Will cont to monitor BGcontrol on current regimen. Appreciate endocrinology recs/assistance as needed. - Lantus 16u PM - nutritional insulin 1u:10 carbs - LDSSI w/ meals + qhs - Consult to glycemic control given elevations today and to simplify regimen given cog deficits. 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 Cardiology not concerned and no s/sx of hemodynamic compromise or tamponade.Plan for further monitor outpatient w/ his rn trauma. - outpatient cardiology f/u and eval #ARNAV - Unclear baseline sCr - though prior Cr 1.1 a year ago. Cr 1.32 on admission, now 1.15 on 02/27/22. #HLD - rosuvastatin 5mg #Rheumatoid Arthritis Patient does not endorse any arthritic pain or flare-up episode. To maintain optimal immunosuppression, restarted home RA meds. - continue sulfasalazine and hydroxychloroquine #Asthma, stable - uses fluticasone/salmetrol at home - duoneb prn ordered Inpatient Checklist: Fluids/Electrolytes/Nutrition: Diabetic diet Prophylaxis: SQH q12h Lines/Drains/Airways: pIV Disposition: Neurology acute care Code Status: FULL Contacts: Liyah Lopez - - [phone] GENERAL HEALTH MANAGEMENT Diet: Adult Diet Regular; Carbohydrate managed Bowel Status: Spontaneous, continent Bladder Status: Spontaneous, continent DVT Prophylaxis: SubQ hep Estimated Length of Stay: 10-14 Discharge Location: Home ANTICIPATED FOLLOW-UP AFTER DISCHARGE Rehab Medicine within 1 month after discharge Primary Care Physician within 1 weeks after discharge Therapies: To be determined On discharge, the patient will need the following follow up: - endocrinology - PCP - stroke clinic - cardiology to follow up the cardiac event monitor Associated attestation - Souleymane Park DO - 09/11/2022 6:39 AM PDT Date of Service: 09/10/22 I saw and evaluated the patient. I have reviewed the resident(s)'s/fellow(s)'s documentation and agree. decided on SNF, accepted and pending yeast isolation clearance. 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 No Subjective Patient Report/Self-Assessment Pt agrees to therapy. PT Daily Recommendations PT IRF Daily Recommendations SBA for transfers and walking with FWW. Community Level 0. cleared for transfers and walking. Therapeutic Activity Therapeutic Activity Time Entry 25 Therapeutic Activity 1 Supine>sit independently. Therapeutic Activity 2 Sit<>stand transfers throughout session with FWW and SBA. Cues for pushing off of transfer surface rather than reaching for walker. Therapeutic Activity 3 TUG x 2. 5xSTS. 30-second STS. Therapeutic Activity 4 Jarrell Balance Scale. Gait Training Gait Training Time Entry 20 Gait Training Activity 1 Pt ambulated 280 feet, 450 feet, 150 feet x 2 with FWW and SBA. Intermittent cues for posture and R step length. Gait Training Activity 2 10-meter walk test. Jarrell Balance Scale 1. Sitting to Standing 3 2. Standing Unsupported 4 3. Sitting with Back Unsupported but Feet Supported on Floor or on a Stool 4 4. Standing to Sitting 4 5. Transfers 3 6. Standing Unsupported with Eyes Closed 4 7. Standing Unsupported with Feet Together 4 8. Reach Forward with Outstretched Arm While Standing 3 9. [employer] Items Object from Floor from a Standing Position 3 10. Turning to Look Behind Over Left and Right Shoulders While Standing 3 11. Turn [address] Foot on Step or Stool While Standing Unsupported 2 13. Standing Unsupported One Foot in Front 3 14. Standing on One Leg 1 Jarrell Balance Score 43 Timed Up and Go Test Trial 1 - How many seconds did it take to complete the tasks? 39.84 seconds Trial 2 - How many seconds did it take to complete the tasks? 38.75 seconds TUG Trials Average (seconds): 39.3 seconds Comment with FWW 30 Second Sit to Stand Number of times performed sit to stand (30 seconds) 7 using chair arms to push up 5x Sit to Stand Five time sit to stand 17.06 Seconds 10 Meter Walk Test How many seconds did it take to complete 10 meters? 17.72 seconds Comments: with FWW * Noreen Toussaint, PhD - 09/10/2022 10:00 AM PDT Inpatient Rehab Psychology Note Per [facility] resident, patient is a 82 year-old RHD male with history of HTN, HLD, T1DM, RA on immunosuppression who presented to an OSH with AMS/aphasia, found to have 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 Visit Information: Face to Face Time: 60min Present in Session: Rehabilitation Psychology Attending and Patient's Reason for Referral: Rehab psych consulted to promote coping during hospitalization and adjustment to injury Behavioral Observations/Mental Status Focus of the session was with family, Donna. Patient not present today. Patient Concerns/Symptoms Donna discussed the challenges of providing support to patient during his hospitalization as well as making decisions about his healthcare. She reflected on past experiences of supporting family during serious illness and end of life. She expressed guilt about not being able to do all the things that she wanted to both for other family and for Kendall. She states that patient was the person in their relationship who was good at making decisions, where as she tends to be a more expansive thinker. She states that she often gets overwhelmed, but has been benefiting from support from her daughter. She reports that she has decided that patient should d/c to a SNF for a short stay while she sets up longer term plans for care for him and support for her. Interventions: Introduced Rehab Psych service. Provided empathetic and reflective listening. Validated and normalized family's experience. Collaborative reviewed pros/cons of d/c options, providing written structure to track information. Reinforced Donna's care and support of patient. Plan: Will continue to follow to promote coping during hospitalization and adjustment to injury. Noreen Toussaint, PhD * Lida Storm SLPS - 09/10/2022 9:52 AM PDT Speech Language Pathology Progress Note Patient Name: Kendall Lopez Today's Date: 09/10/2022 Subjective Patient Active Problem List Diagnosis Acute cerebral infarction (HCC) Cerebrovascular accident (CVA) of left basal ganglia (HCC) Prior Function Prior Function Prior Function: Pt reports he lives in [place] with his . Neurology note states: right frontal infarct in the MCA/AYLIN territory in June. Unclear whether pt had residual cognitive-communicationdeficits, plan to discuss with family when present. 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 He participated in ongoing training of communication strategies and use of external memory aids. Currently, he requires min verbal assist to identify the date on the calendar and reads information re: therapists and typical activities. He currently requires max A verbal cues to recall activities in prior therapy sessions. When completing moderatelycomplex attention tasks such as reviewing stroke education materials, he benefits from decreased stimuli and few written choices to promote comprehension and verbal initiation of teach-back. Education and caregiver training re: stoke, cognition, and aphasia is ongoing. Given his age and subsequent strokes, Kendall has a fair prognosis for recovery, however is well supported by his family. Following discharge, Kendall will require assistance with iALDs, and it is recommended he continue speech therapy. 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 Assessment Results: Cognitive communication impairment, Aphasia Cognitive Communication Impairment: Moderate Aphasia: Mild Impact on Function: Reduced ability to recall important information, Reduced ability to follow safety precautions, Reduced ability to understand and participate in higher level conversations Prognosis: Fair Evaluation/Treatment Tolerance: Patient tolerated treatment well ARMOR RECONNAISSANCE VEHICLE CREWMAN Plan: Skilled ARM[employer]NAISSANCE VEH[employer]LE CREWMAN Treatment/Interventions: Cognitive communication treatment, Speech/language/voice treatment, Patient/family education ARM[employer]NAISS[employer]LE CREWMAN Frequency: 5-6 days/week, 1-2x/day ARMOR RECONNAISSANCE VEHICLE CREWMAN Discharge Recommendations: Follow up with ARMOR RECONNAISSANCE VEHICLE CREWMAN at next level of care Swallow Recommendations Diet Recommendations: Regular, 0-Thin liquids Medication Administration Recommendations: Meds as tolerated Oral care: Frequency: 2-3x per day Aspiration Precautions: As upright as medically possible for all oral intake, Fully alert for all PO intake, One sip at a time, Cut up/set up Cognitive Communication Recommendations : Allow patient breaks as needed, Follow consistent routineas able, Reduce external stimuli (TV, smart phone, electronic devices, number of visitors) Communication Recommendations: Allow automatic function as able, Make sure you have patient's attention before speaking to them, Keep verbal input short, simple, direct, Give patient extra time to respond and speak, Try asking simple yes/no questions Goals Short Term Goal: Tolerate least restrictive diet Estimated Completion Date: 09/05/22 Goal Status: Met Short Term Goal: Participate in further evaluation to determine appropriate treatment goals Estimated Completion Date: 09/03/22 Goal Status: Met Short Term Goal: Participate in development and trials of external memory aids Estimated Completion Date: 09/03/22 Goal Status: Met Short Term Goal - Education: Patient/caregiver will participate in education regarding: Dysphagia;Aphasia;Cognition;Cerebrovascular Accident Estimated Completion Date: 09/03/22 Goal Status: Met Discharge Goal - Education: Patient/caregiver will participate in education regarding: Dysphagia;Aphasia;Cognition;Cerebrovascular Accident Estimated Completion Date: 09/09/22 Goal Status: Met Discharge Goal: Pt will utilize compensatory strategies for memory in functional tasks with 80% accuracy Estimated Completion Date: 09/09/22 Goal Status: Progressing Discharge Goal: Pt will utilize word finding strategies in converstaion w min A Estimated Completion Date: 09/09/2022 Goal Status: Progressing I have reviewed the documentation of this visit and I confirm that I was present for the entire session and not engaged in other tasks. I directed / guided the services and am responsible for the assessment and treatment of this patient in this visit. - Juanjose Boyer, MS, CCC-ARM[employer]ISS[employer] * Joana Chilel PA-C - 09/09/2022 6:50 PM PDT Progress Note Kendall Lopez (Kendall) - : 1940 (82 year old male) Preferred Pronouns: he/him/his Admit Date: 08/27/2022 Code Status: Full Code GLYCEMIC CONTROL PROGRESS NOTE Patient : Kendall Lopez; 82 year old Admit Date: 08/27/2022 CHIEF CONCERN: Mr. Lopez is an 82yo male with history of DM1, HTN, HL, RA admitted as transfer from [facility] for subacute cerebral infarct. He has since transferred to inpatient rehab service, and the Glycemic Control Consult Service was asked to see this patient for the support of diabetes management. HISTORY OF DIABETES: -Diagnosis: Known DM1, diagnosed 1983 by chart review -Outpatient diabetes provider: Dr. Niharika Pedroza, [facility], last visit 12/17/2021 -Home regimen: Clarified with as the following: Glargine 8-10 units nightly Novolog 1unit per 20g carb ICR, Novolog 1unit per every 20 >120 ICF -Home glucose monitoring: Freestyle Danielle, glucometer also available -Hypoglycemia: low 1% per last CGM reading Nov 2021 100 carbs is 5 units, 1 unit for every 20 over goal INTERVAL HISTORY: Planning to move basal insulin to dinner time beginning tomorrow to reflect home regimen Will receive NPH 7 units tomorrow AM (once), then glargine 16 units QHS/nightly moving forward Discharge delayed to ensure adequate teaching/preparation for a home discharge Diabetes NUT DEHYDRATOR OPERATOR met with pt with me on speakerphone yesterday to address her concerns fo marcial Thompson has the main remaining concerns after our discussion yesterday: 1) When, if ever to correct for blood sugar between meals as Kendall would do previously 2) How much time is needed between injections to avoid stacking 3) How to manage blood sugars overnight/early AM when they trend upward 4) Follow up care for PCP/Endocrine MEDICATIONS: aspirin, 325 mg, Daily heparin, 5,000 units, q12h ASTRID hydroxychloroquine, 200 mg, BID [START ON 09/10/2022] insulin GLARGINE, 16 units, q PM insulin LISPRO, 0-4 units, q HS insulin LISPRO, 0-5 units, TID before meals insulin LISPRO, 0-8 units, q24h insulin LISPRO, , TID before meals [START ON 09/10/2022] insulin NPH, 7 units, q AM rosuvastatin, 5 mg, Daily senna, 17.2 mg, BID sulfaSALAzine, 1,000 mg, BID VITALS: BP 109/61 (Patient Position: Lying) Pulse 89 Temp 36.9 ??C (Temporal) Resp 16 Ht 5' 11 (1.803 m) Wt 69.4 kg (153 lb) SpO2 99% BMI 21.34 kg/m?? PHYSICAL EXAM: Not performed LABS: Lab Results Component Value Date CREATININE 1.40 09/08/2022 CREATININE 1.21 09/04/2022 CREATININE 1.44 09/01/2022 Lab Results Component Value Date GLUCOSE 216 09/09/2022 GLUCOSE 273 09/09/2022 GLUCOSE 341 09/09/2022 GLUCOSE 170 09/09/2022 GLUCOSE 89 09/08/2022 GLUCOSE 331 09/04/2022 GLUCOSE 250 09/01/2022 GLUCOSE 455 08/30/2022 ASSESSMENT / PLAN: Mr. Lopez is an 82yo male with history of DM1, HTN, HL, RA admitted as transfer from [facility] for subacute cerebral infarct. He has since transferred to inpatient rehab service, and the Glycemic Control Consult Service was asked to see this patient for the support of diabetes management. Currently, the goal is to discharge to home in the care of pt's , Donna. She has helped pt with his insulin to an extent since his prior stroke, per her report. She is comfortable reading BG results on his Freestyle Danielle, and giving insulin injections, generally counting carbs. In regard to his overnight climb in blood sugar, the cause may be inadequate basal insulin at home as we are not seeing this trend here with consistency and we are giving a larger dose of basal insulin than they were doing at home. Another option for the future may be switching to degludec for basal insulin to see if that is of help. Would suggest trying to continue with current insulin to carb ratio and correction scale and see how Candy dose directing these doses. She will have access to meal slips to total Kendall's carbs and determine the dose. She may need prompting that we are using a 1:10 carb ratio rather than 1:20, and a correction factor of 1:50 >150 rather than 1:20>120. Summary of recommendations: Resume glargine at HS as pt/ will give at home Continue insulin lispro doses as ordered and have Donna calculate doses of lispro with nurses to ensure she adjusts to the current carb counting and correction ratios/scales Encouraged Donna to set up Danielle View for future providers in the event that visits need to be remote so providers can see Kendall's BG trends more readily -Will return with additional suggestions/tips for Donna to address her questions stated above by tomorrow AM and review with her to ensure understanding Thank you for consulting our service. We will continue to follow-up. 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 No Subjective Patient Report/Self-Assessment Pt agrees to therapy. Pt, pt's , and pt's daughter report no questions at end of session. PT Daily Recommendations PT IRF Daily Recommendations SBA for transfers and walking with FWW. Community Level 0 Therapeutic Activity Therapeutic Activity Time Entry 10 Therapeutic Activity 1 Supine<>sit independently. Extra time at start of session, as pt sleeping and pt's reports he had the chills earlier and was sleepy, which she finds concerning as hewas really sleepy when he had his previous strokes. Per pt's , RN has already assessed vitals and temperature (and all were normal). Pt's uses electronic device to check blood glucose, whichreads as 218. Therapeutic Activity 2 Sit<>stand transfers throughout session with FWW and SBA. Cues for hand placement on transfer surface rather than walker. Balance/Neuromuscular Re-Education Neuromuscular Re-Education Time Entry 20 Balance/Neuromuscular Re-Education Activity 1 Review and practice of home exercise program with handout: feet together, modified tandem stance B, feet together + vertical/horizontal head turns. Marching, heel raises, squat with chair touch. All with FWW in front but not using for exercises. Pt and stated understanding, no questions about exercises. Gait Training Gait Training Time Entry 15 Gait Training Activity 1 Pt ambulated 150 feet, 450 feet, 200 feet with FWW and SBA. Cues for upright posture, longer step lengths, increased RLE clearance. * Pauline Mckeon Advertising Vice President - 09/09/2022 2:34 PM PDT [facility] Acceptance Current Situation: [facility] has clinically accepted patient Discharge Placement Center notified SW. SW will confirm bed availability and coordinate with SNF for final acceptance. Plan: Discharge Placement Center will follow-up as needed. Pauline Mckeon SW Head Of Talent Management 2 * Pauline Mckeon Advertising Vice President - 09/09/2022 2:02 PM PDT [facility] Initial Referral Current Situation: Discharge Placement Center received a SNF referral from [facility]. Per 's request, [facility] referred patient to 3 SNF's: [facility], [facility] Plan: The Discharge Placement Center will follow-up and expand as needed. Pauline Mckeon SW Head Of Talent Management 2 * Souleymane Park DO - 09/09/2022 1:43 PM PDT Rehabilitation Medicine Progress Note Kendall Lopez (Kendall) - : 1940 (82 year old male) Preferred Pronouns: he/him/his PCP: Pcp, Outside Code Status: Full Code CHIEF CONCERN / IDENTIFICATION: Kendall Lopez is an 82 year-old RHD male with history of HTN, HLD, T1DM, RA on immunosuppression who presented to an OSH with AMS/aphasia, found to have 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 SUBJECTIVE Continuation of caregiver training today. Family here including spouse, Donna, and patient's daughter, Mamta. Patient feeling well today after a long morning of therapy. MEDICATIONS: Scheduled medications: aspirin, 325 mg, Oral, Daily heparin, 5,000 units, Subcutaneous, q12h ASTRID hydroxychloroquine, 200 mg, Oral, BID [START ON 09/10/2022] insulin GLARGINE, 16 units, Subcutaneous, q PM insulin LISPRO, 0-4 units, Subcutaneous, q HS insulin LISPRO, 0-5 units, Subcutaneous, TID before meals insulin LISPRO, 0-8 units, Subcutaneous, q24h insulin LISPRO, , Subcutaneous, TID before meals [START ON 09/10/2022] insulin NPH, 7 units, Subcutaneous, q AM rosuvastatin, 5 mg, Oral, Daily senna, 17.2 mg, Oral, BID sulfaSALAzine, 1,000 mg, Oral, BID PRN medications: PRN medications: acetaminophen, dextrose, dextrose, glucagon, glucagon, melatonin, ondansetron, zinc oxide OBJECTIVE T: 36.4 ??C (08/27/222037) BP: 116/84 (08/27/222037) HR: 80 (08/27/222037) RR: 16 (08/27/222037) SpO2: 95 % (08/27/222037) Room air Vitals (Most recent in last 24 hrs) T: 36.8 ??C (09/09/22938) BP: 96/69 (09/09/22938) HR: 90 (09/09/22938) RR: 16 (09/09/22938) SpO2: 100 % (09/09/22938) Room air T range: Temp Min: 36.6 ??C Max: 37.3 ??C Wt 153 lb (69.4 kg) Ht 5' 11 (1.803 m) Body mass index is 21.34 kg/m??. Physical Exam: General: no acute distress, resting comfortably HEENT: normocephalic Cadiac: extremities warm and well perfused Pulmonary: nonlabored breathing on room air Abdomen: nondistended Neuro: alert and awake Aox1-2 (without room cues), continues to be be disoriented to time and date and have 0/3 delayed recall LABS: Labs (last 24 hours): Chemistries CBC LFT Gases, other - - - 273 - AST: - ALT: - -/-/-/- -/-/-/- - - - - >< - AP: - T bili: - Lact (a): - Lact (v): - eGFR: - Ca: - - Prot: - Alb: - Trop I: - D-dimer: - Mg: - PO4: - ANC: - BNP: - Anti-Xa: - ALC: - INR: - ADDITIONAL RESULTS/IMAGING: MICRO: I have personally reviewed the latest Micro results and cultures IMAGING: I have reviewed the latest radiology results PATHOLOGY: I have reviewed the latest pathology results ASSESSMENT/PLAN Kendall Lopez is an 82 year-old RHD male with history of HTN, HLD, T1DM, RA on immunosuppression who presented to an OSH with AMS/aphasia, found to have 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 Now medically stable and admitted to [facility] on 08/27/22 for intensive PT, OT, speech therapy. 09/09 - adjusting glargine to PM dosing, per glycemic team - continuing caregiver training and glycemic training, pending SNF v. Home decision - Pending yeast culture on c auris screen, contact isolation - no fungus isolated in 4 days #Rehabilitation plan for ischemic infarct - Continue comprehensive inpatient rehabilitation care including medicine, nursing, physical therapy, occupational therapy, speech therapy, recreational therapy and rehabilitation psychology. Memory Memory is challenge especially antegrade Speech therapy recs: Reinforced introduction to memory book. While referencing calendar, pt ID date, day, mo, yr. Speech Word-finding expressive aphasia noted Agitation None currently Pain No concerns at this time Sleep No concerns at this time 8. Bowel/Bladder a. No concerns at this time 9. Nutrition a. No concerns at this time. Full diet 10. Decreased mood a. No SI/HI - rehab psych becoming involved 11. Mobility a. CGA with all transfers, ambulating 200 ft with no AD Meng 12. Cognitive a. Paying bills requires modA->MaxA for money management tasks b. Still requiring maxA cueing to describe object characteristics 13. Self-long term management a. 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 History of old right frontalinfarct, subacute right centrum semioval infarct. Acute/subacute ischemic infarcts in bilateral hemispheres in multiple territories with unknown etiology, currently undergoing extensive workup for feng rce. TTE was negative for atrial mass, which was initial suspicion for a cardioembolic source. Blood cx NGTD and no s/sx of infection, making infective endocarditis very unlikely currently. MRI blackblood had findings most consistent with atherosclerotic changes, with no evidence of vasculitis or other inflammatory process, r/o RA vasculitis. APS labs negative. CT C/A/P overall unremarkable, x1 5mm indeterminate lung nodule and calcified granulomas. Repeat TCD negative. Will work to obtain OSHecho images to ensure there was no prior mass seen. Continue neuro checks with VS monitoring. Continue goals for normotension, normothermia, eunatremia- goal 135-145, and euglycemia: BG <180. The pt remains on ASA 325mg daily and DVT ppx - SQH [id number]. 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 Seems mostly good control at home. Will cont to monitor BGcontrol on current regimen. Appreciate endocrinology recs/assistance as needed. - glargine 18u qam --> 16u starting 09/03 --> 09/10 a dose of NPH in the AM, 7 or 8 units wouldbe good. Then that will cover his basal tomorrow through the day, and you can start the glargine 16qHS tomorrow (09/10) - nutritional insulin 1u:10 carbs - LDSSI w/ meals + qhs - Consult to glycemic control given elevations today and to simplify regimen given cog deficits. 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 Cardiology not concerned and no s/sx of hemodynamic compromise or tamponade.Plan for further monitor outpatient w/ his rn trauma. - outpatient cardiology f/u and eval #ARNAV - Unclear baseline sCr - though prior Cr 1.1 a year ago. Cr 1.32 on admission, now 1.15 on 02/27/22. #HLD - rosuvastatin 5mg #Rheumatoid Arthritis Patient does not endorse any arthritic pain or flare-up episode. To maintain optimal immunosuppression, restarted home RA meds. - continue sulfasalazine and hydroxychloroquine #Asthma, stable - uses fluticasone/salmetrol at home - duoneb prn ordered Inpatient Checklist: Fluids/Electrolytes/Nutrition: Diabetic diet Prophylaxis: SQH q12h Lines/Drains/Airways: pIV Disposition: Neurology acute care Code Status: FULL Contacts: Liyah Lopez - - [phone] GENERAL HEALTH MANAGEMENT Diet: Adult Diet Regular; Carbohydrate managed Bowel Status: Spontaneous, continent Bladder Status: Spontaneous, continent DVT Prophylaxis: SubQ hep Estimated Length of Stay: 10-14 Discharge Location: Home ANTICIPATED FOLLOW-UP AFTER DISCHARGE Rehab Medicine within 1 month after discharge Primary Care Physician within 1 weeks after discharge Therapies: To be determined On discharge, the patient will need the following follow up: - endocrinology - PCP - stroke clinic - cardiology to follow up the cardiac event monitor Patient discussed with resident, Dr. Paul Stanford. * Mamta Branham LSWAIC - 09/09/2022 1:37 PM PDT Social Work Progress Note Service: REHAB MEDICINE BLUE 1 Admit reason: This is a 82 year old old male admitted for Cerebrovascular accident (CVA) of left basal ganglia (HCC) [I63.81]. Funding: Insurance Information MEDICARE/MEDICARE PART A AND B Subscriber: Kendall Lopez Subscriber#: [id number] Group#: -- Precert#: -- [facility] AARP MEDICARE SUPPLEMENT Subscriber: Kendall Lopez Subscriber#: [id number] Group#: -- Precert#: -- Healthcare Decision Making Information: Pt, as able. His is primary DPOA for Healthcare and his daughter, Mamta, is secondary DPOA Contact in Following Order for Legal Next of Kin Decision Making: Patient as able Liyah Lopez: DPOA/: [phone] Mamta Lopez: Secondary DPOA/Daughter: [phone] Gulshan Lopez: Son: [phone] Living Situation Prior to Admit: Home;Spouse/Significant other Anticipated Living Situation Post Discharge/Needs: Home Anticipated Discharge Date: 09/09/2022 Patient Care Team: Pcp, Outside as PCP - General ASSESSMENT: Per chart: Kendall Lopez is an 82 year-old RHD male with history of HTN, HLD, T1DM, RA on immunosuppression who presented to an OSH with AMS/aphasia, found to have 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 INTERVENTION: Tentative plan is for pt to discharge home v. SNF. Pt and his are agreeable to sending referrals to 3 SNFs as a back up discharge option. SW asked DPC to send referrals to [facility], [facility] and [facility]. If pt discharges home - Rehab Team is recommending that patient follows up with outpatient PT, OT and SP. SW faxed referral to [facility] and updated the AVS with the referral information. PLAN OR OUTCOME: - If plan is home, SW will fax the discharge summary to [facility] - SW will follow-up on SNF search and update pt and his SW Interventions: Discharge planning;Consult with healthcare team ANTHONY Centeno * Shira Ruiz, OT - 09/09/2022 1:00 PM PDT Treatment Note 09/09/22 1300 OT Last Visit OT Diagnosis Kendall Lopez is an 82 year-old RHD male with history of HTN, HLD, T1DM, RA on immunosuppression who presented to an OSH with AMS/aphasia, found to have acute left basal ganglia and thalamus infarcts, subacute right centrum semioval and old right frontal infarcts with etiology 2/2 ath erosclerotic disease. OT Consideration Type 1 Diabetes, insulin dep; Decreased memory, visual percpetual impairments, decinsight into safety, bed alarm Therapy Minutes (IP Rehab Only) Family/Caregiver Present Yes (spouse and daughter) OT Treatment START Time 1300 Treatment End Time 1345 OT Individual 45 OT Daily Recommendations OT Daily Recommendations Showers MWF, toileting with min A to toilet, ambulating with FWW CGA Subjective Patient Report/Self-Assessment patient alert and agreeable to OT [employer] Is an child and adolescent psychologist used? No Functional Mobility Distance room > therapy gym Assistance Needs Supervision / Stand by assistance Functional Mobility Comments Patient's spouse providing CGA - SBA while patient ambulating to gym with FWW Therapeutic Activity Therapeutic Activity Time Entry 45 Therapeutic Activity 1 Theraputty HEP review: Patient educated on purpose of theraputty exercises for coordination and strengthening of fine motor and gross motor control. Patient vended green theraputty; using B hand to complete exercises of full finger flexion, finger extension, finger abduction/adduction, alternating opposition, and finger isolation. Patient would benefit from continued reviewto ensure carry over of information. Patient provided handout for continued complete as HEP. Therapeutic Activity 2 HEP review: Pt completed 6 pack exercises on B UE of finger flexion, finger extension, tabletop, opposition, finger abduction/adduction. Pt with difficulty forming full positions d/t arthritis however able to compensate with hand over hand. Therapeutic Activity 3 HEP: OT discussing other items that can be utilized as for continued FMC andcognitive activities, discussing games, puzzles, and cards that would be appropriate. Patient engaging in game of [employer] to demonstrate appropriate level of challenge and appears to enjoy activity. OT Activities Total time minutes Total Exercise/Activity Time Rows 45 Pt was left seated on EOB, spouse, daughter, and RN present. GABRIELLA Ghotra, OTR/L * Lida Storm, STRAIGHT CUTTER - 09/09/2022 12:03 PM PDT Speech Language Pathology Treatment Patient Name: Kendall Lopez Today's Date: 09/09/2022 Subjective Patient Report/Self-Assessment: Pt seen in therapy room w , dtr Patient Stated Goal: none stated Patient Active Problem List Diagnosis Acute cerebral infarction (HCC) Cerebrovascular accident (CVA) of left basal ganglia (HCC) No past medical history on file. No past surgical history on file. General Visit Information [employer] Last Visit [employer] Received On: 09/09/22 [employer] Document Type: Progress [employer] Total Treatement Time in Minutes: 30 Minutes Visual Acuity: Corrective lenses Auditory Acuity: Functional in conversation Family/Caregiver Present: Yes Family/Caregiver Comments: , dtr Prior Function Prior Function: Pt reports he lives in [place] with his . Neurology note states: right frontal infarct in the MCA/AYLIN territory in June. Unclear whether pt had residual cognitive-communicationdeficits, plan to discuss with family when present. 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 - Reviewed safety recommendations for discharge, includin hour supervision; community supervision; no driving, alcohol, drugs, climbing ladders, heavy chores, yard work, power tools, contact sports, etc; assist with iADLs (money, medications, cooking); follow up with PCP and outpatient rehab med, completing all outpatient therapies. Pt required mod A verbal/visual cueing to recall specific recommendations, benefited from verbal+ written choices. Pt i'ly recalled general ideas like needing 24hr supervision and help with cognitive tasks like bills, med management, cooking. - Throughout review pt expressed concern re: medication management, day to day activities like grocery shopping, and taking the right medications. Addressed to extent of scope, provided reassurance of clarity with d/c paperwork and f/u w other disciplines. Dtr asked several appropriate questions re: follow-up therapies, repeatedly denies having questions or concerns. Assessment/Plan Swallow Recommendations Diet Recommendations: Regular;0-Thin liquids Medication Administration Recommendations: Meds as tolerated Oral care: Frequency: 2-3x per day Aspiration Precautions: As upright as medically possible for all oral intake;Fully alert for all POintake;One sip at a time;Cut up/set up Cognitive Communication Recommendations : Allow patient breaks as needed;Follow consistent routine as able;Reduce external stimuli (TV, smart phone, electronic devices, number of visitors) Communication Recommendations: Allow automatic function as able;Make sure you have patient's attention before speaking to them;Keep verbal input short, simple, direct;Give patient extra time to respond and speak;Try asking simple yes/no questions I have reviewed the documentation of this visit and I confirm that I was present for the entire session and not engaged in other tasks. I directed / guided the services and am responsible for the assessment and treatment of this patient in this visit. 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 No Subjective Patient Report/Self-Assessment Pt agrees to therapy. Pt's present for caregiver training. Therapeutic Activity Therapeutic Activity Time Entry 20 Therapeutic Activity 1 Sit<>stand transfers with SBA and FWW. With no AD and SBA-CGA. One instance from low chair with SO providing CGA-min A. Therapeutic Activity 2 Car transfer with FWW and SBA, cues for sequencing. Therapeutic Activity 3 Pt and caregiver education regarding discharge recommendations for continuing to use FWW, providing SBA (or CGA okay if preferred by SO), avoiding stairs for now if able. Also gave feedback about amount of cuing SO is giving pt - ok to give cues but can be overwhelming to get a lot of cues. Pt and stated understanding. Therapeutic Activity 4 Pt's provided all assist throughout session. Occasional cues given but mainly providing appropriate assistance. Gait Training Gait Training Time Entry 25 Gait Training Activity 1 Pt ambulated 100 feet x 2, 150 feet with FWW and SBA (SO providing CGA at times per her preference). Gait Training Activity 2 Pt ambulated 250 feet with no AD and CGA. Gait Training Activity 3 Up/down 4 steps x 2 with B railings and SBA. Reviewed staying below pt andfollowing him up/down stairs when there are more than 4. Pt's stated understanding. Gait Training Activity 4 Up/down curb with FWW and SBA. Gait Training Activity 5 Pt's SO provided all assist throughout session. Occasional cues but mainlyprovided appropriate assistance. 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 OT Consideration Type 1 Diabetes, insulin dep; Decreased memory, visual percpetual impairments, decinsight into safety, bed alarm Therapy Minutes (IP Rehab Only) Family/Caregiver Present Yes (spouse) OT Treatment START Time 729 Treatment End Time 0815 OT Individual 45 OT Daily Recommendations OT Daily Recommendations Showers MWF, toileting with min A to toilet, ambulating with FWW CGA Subjective Patient Report/Self-Assessment patient alert and agreeable to OT [employer] Is an child and adolescent psychologist used? No Self-Care/Home Management Time Entry (min) 30 Minutes Oral Hygiene Other (Comment) Oral Hygiene Comments patient declining until after breakfast Lower Body Dressing Contact guard assist (touching/steadying assistance) LE Dressing Comments CGA for balance seated at EOB, verbal cues for recalling use of adaptive equipment for donning, spouse providing cues and assist Putting on/taking off footwear Contact guard assist (touching/steadying assistance) Putting on/taking off footwear Comment seated on EOB to hannah shoes, patient benefiting from cues for use of adaptive equipment ADL Comments Patient's spouse providing assistance for ADLs this session, benefitting from cues to recall techniques. Transfers Sit<>Stand Supervision / Stand by assistance Sit <> Stand Comments with FWW Functional Mobility Distance room > therapy gym Assistance Needs Supervision / Stand by assistance;Contact guard assist (touching/steadying assistance) Functional Mobility Comments Patient's spouse providing CGA - SBA while patient ambulating to gym with FWW Therapeutic Exercise Therapeutic Exercise Time Entry 15 Therapeutic Exercise Activity 1 Patient seated at table in therapy gym, educated on exercise program and purpose. Patient engaging in gravity minimized exercises for B UE strengthening and ROM, as follows: -B shoulder forward flexion -B shoulder abduction -B shoulder external/internal rotation -circumduction OT Activities Total time minutes Total Exercise/Activity Time Rows 45 Pt was left in chair in therapy gym with PT present. 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 OT Consideration Type 1 Diabetes, insulin dep; Decreased memory, visual percpetual impairments, decinsight into safety, bed alarm Therapy Minutes (IP Rehab Only) Family/Caregiver Present Yes OT Treatment START Time 1515 Treatment End Time 1600 OT Individual 45 OT Daily Recommendations OT Daily Recommendations Showers MWF, toileting with min A to toilet, ambulating with FWW CGA Subjective Patient Report/Self-Assessment patient alert and agreeable to tasks presented, does not initiate much conversation or discussion during session Patient Stated Goal pt's spouse present for caregiver training. Her daughter and son also present. [employer] Is an child and adolescent psychologist used? No Self-Care/Home Management Time Entry (min) 30 Minutes ADL Comments Caregiver training: education on need/purpose for 24 hr supervision and assistance with ADLs was presented during session. Education on need for providing coaching (such as verbal cues) for task progression was provided. Pt's SO demonstrates difficulty grasping concepts at times, andwould benefit from more hands on training. This session she was somewhat hesitant to demonstrate/participate physically. Therapeutic Exercise Therapeutic Exercise Time Entry 15 Therapeutic Exercise Activity 1 B UE ROM and theraputty exercises, training with patient only (spouse not available for caregiver training) OT Activities Total time minutes Total Exercise/Activity Time Rows 45 Pt's spouse will need further caregiver training and hands on practice to ensure she feels ready tomanage his high care needs at home. He continues to require 24hr supervision and assist with most tasks. * Lida Storm STRAIGHT CUTTER - 09/08/2022 3:52 PM PDT Speech Language Pathology Treatment Patient Name: Kendall Lopez Today's Date: 09/08/2022 Subjective Patient Report/Self-Assessment: Pt seen in therapy room. Agreeable to session. 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 No past surgical history on file. General Visit Information [employer] Last Visit [employer] Received On: 09/08/22 [employer] Document Type: Progress [employer] Total Treatement Time in Minutes: 45 Minutes Visual Acuity: Corrective lenses Auditory Acuity: Functional in conversation Family/Caregiver Present: Yes Family/Caregiver Comments: Prior Function Prior Function: Pt reports he lives in [place] with his . Neurology note states: right frontal infarct in the MCA/AYLIN territory in June. Unclear whether pt had residual cognitive-communicationdeficits, plan to discuss with family when present. 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 Required mod A verbal cue to recall situation. - People: while referencing photo page, ID PT & activities, OT & activities, [employer] & activities. EDUCATION 1) Reviewed safety recommendations for discharge, includin hour supervision; community supervision; no driving, alcohol, drugs, climbing ladders, heavy chores, yard work, power tools, contact sports, etc; assist with iADLs (money, medications, cooking); follow up with PCP and outpatient rehab m ed, completing all outpatient therapies. 2) Completed BIMs & Health Literacy Questionnaire. 3) SO required multiple repetitions of educational material, asking lots of specific questions. Demonstrating needs for ongoing caregiver training particularly in areas of mobility, ADLs, iADLs, as SO was unaware of current level of assist despite prior educational sessions across disciplines. MD and rehab team notified. Assessment/Plan Swallow Recommendations Diet Recommendations: Regular;0-Thin liquids Medication Administration Recommendations: Meds as tolerated Oral care: Frequency: 2-3x per day Aspiration Precautions: As upright as medically possible for all oral intake;Fully alert for all POintake;One sip at a time;Cut up/set up Cognitive Communication Recommendations : Allow patient breaks as needed;Follow consistent routine as able;Reduce external stimuli (TV, smart phone, electronic devices, number of visitors) Communication Recommendations: Allow automatic function as able;Make sure you have patient's attention before speaking to them;Keep verbal input short, simple, direct;Give patient extra time to respond and speak;Try asking simple yes/no questions I have reviewed the documentation of this visit and I confirm that I was present for the entire session and not engaged in other tasks. I directed / guided the services and am responsible for the assessment and treatment of this patient in this visit. - Juanjose Boyer, MS, [facility]-[employer] * Joana Chilel PA-C - 09/08/2022 2:55 PM PDT Progress Note Kendall Lopez (Kendall) - : 1940 (82 year old male) Preferred Pronouns: he/him/his Admit Date: 08/27/2022 Code Status: Full Code GLYCEMIC CONTROL PROGRESS NOTE Patient : Kendall Lopez; 82 year old Admit Date: 08/27/2022 CHIEF CONCERN: Mr. Lopez is an 82yo male with history of DM1, HTN, HL, RA admitted as transfer from [facility] for subacute cerebral infarct. He has since transferred to inpatient rehab service, and the Glycemic Control Consult Service was asked to see this patient for the support of diabetes management. HISTORY OF DIABETES: -Diagnosis: Known DM1, diagnosed 1983 by chart review -Outpatient diabetes provider: Dr. Niharika Pedroza, [facility], last visit 12/17/2021 -Home regimen: Lantus 10-15 units daily, though reports he takes less than this, maybe 8 unitsonce a day at home, novolog 1:20 (some mention of higher dose at dinner 1:10 in last Endo note). -Home glucose monitoring: Freestyle Danielle, glucometer also available -Hypoglycemia: low 1% per last CGM reading Nov 2021 100 carbs is 5 units, 1 unit for every 20 over goal INTERVAL HISTORY: and daughter present at bedside, meeting with NUT DEHYDRATOR OPERATOR for education around managing insulin for ptat home, and I joined by phone for part of this session Plan for discharge to home with tomorrow Per , pt has been doing the following for insulin management, different from as prescribed: Glargine 8-10 units nightly Novolog 1unit per 20g carb Novolog 1unit per every 20 >120 Candnallely has the main following concerns: 1) Managing overnight BG rise 2) Identifying carbs that raise blood sugars more than others 3) Injection site rotations MEDICATIONS: aspirin, 325 mg, Daily heparin, 5,000 units, q12h ASTRID hydroxychloroquine, 200 mg, BID insulin GLARGINE, 16 units, q AM insulin LISPRO, 0-4 units, q HS insulin LISPRO, 0-5 units, TID before meals insulin LISPRO, 0-8 units, q24h insulin LISPRO, , TID before meals rosuvastatin, 5 mg, Daily senna, 17.2 mg, BID sulfaSALAzine, 1,000 mg, BID VITALS: BP 119/69 Pulse 74 Temp 36.6 ??C (Temporal) Resp 16 Ht 5' 11 (1.803 m) Wt 69.4 kg (153 lb) SpO2 97% BMI 21.34 kg/m?? PHYSICAL EXAM: Pt not seen for exam by this author LABS: Lab Results Component Value Date CREATININE 1.40 09/08/2022 CREATININE 1.21 09/04/2022 CREATININE 1.44 09/01/2022 Lab Results Component Value Date GLUCOSE 112 09/08/2022 GLUCOSE 89 09/08/2022 GLUCOSE 142 09/08/2022 GLUCOSE 123 09/08/2022 GLUCOSE 117 09/07/2022 GLUCOSE 331 09/04/2022 GLUCOSE 250 09/01/2022 GLUCOSE 455 08/30/2022 ASSESSMENT / PLAN: Mr. Lopez is an 82yo male with history of DM1, HTN, HL, RA admitted as transfer from [facility] for subacute cerebral infarct. He has since transferred to inpatient rehab service, and the Glycemic Control Consult Service was asked to see this patient for the support of diabetes management. Currently, the goal is to discharge to home in the care of pt's , Donna. She has helped pt withhis insulin to an extent since his prior stroke, per her report. She is comfortable reading BG results on his Freestyle Danielle, and giving insulin injections, generally counting carbs. In regard to his overnight climb in blood sugar, the cause may be inadequate basal insulin at home as we are not seeing this trend here. In regard to counting carbs, pt would benefit from practicing in real time her ability to count carbs and factor in current BG with our recommended doses to ensure safe decision making at home. Would suggest trying to continue with current insulin to carb ratio and correction scale and see how Candy dose directing these doses. She will have access to meal slips to total Kendall's carbs and determine the dose. She may need prompting that we are using a 1:10 carb ratio rather than 1:20, and a correction factor of 1:50 >150. Summary of recommendations: -Move glargine to HS -Stop as glargine as ordered, re-time to start glargine 16 units QHS beginning tomorrow evening -Bridge with a dose of NPH 7 units tomorrow AM when no glargine on board -Continue insulin doses as ordered and have Candy calculate doses of lispro with nurses Thank you for consulting our service. We will continue to follow-up. 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 No Subjective Patient Report/Self-Assessment Pt agrees to therapy. Pt's present for caregiver training. Pt and report no questions/concerns at end of session. PT Daily Recommendations PT IRF Daily Recommendations SBA for transfers and walking with FWW. Community Level 0 Therapeutic Activity Therapeutic Activity Time Entry 20 Therapeutic Activity 1 Supine>sit independently. Therapeutic Activity 2 Sit<>stand transfers with FWW and SBA-supervision. Sit<>stand transfers with no AD and SBA-CGA. Therapeutic Activity 3 Car transfer with FWW and SBA. Therapeutic Activity 4 Floor transfer with use of intermediate surface and SBA-CGA. Therapeutic Activity 5 Review of home activity recommendations, including level of assistance and prioritizing a walking program. Reviewed handout of home exercise program, but pt did not perform today due to time constraints. Pt and reported no questions about home exercise program or discharge related to physical therapy. Gait Training Gait Training Time Entry 25 Gait Training Activity 1 Pt ambulated 150 feet x 2, 100 feet with FWW and SBA. Pt's observed and then demonstrated guarding. Gait Training Activity 2 Pt ambulated 100 feet x 2 with no AD and CGA. Pt's observed and then demonstrated guarding. Reviewed when and how he typically loses his balance (when he does). Pt and stated understanding. Gait Training Activity 3 Up/down 4 steps x 3 with B railings and SBA- supervision. Up/down curb x 2 with FWW and SBA. Pt's observed and then providing guarding for each activity. * Noa Nixon, PT - 09/08/2022 11:58 AM PDT Land Mobile [employer] Technician Progress- Discharge Planning Note Visit Information Admission diagnosis: Cerebrovascular accident (CVA) of left basal ganglia (HCC) Expected Discharge Date: Discharge Plan: Home Insurance Information MEDICARE/MEDICARE PART A AND B Subscriber: Kendall Lopez Subscriber#: [id number] Group#: -- Precert#: -- [facility] AARP MEDICARE SUPPLEMENT Subscriber: Kendall Lopez Subscriber#: [id number] Group#: -- Precert#: -- Primary Care Provider/Care Team: Primary Care Provider: Patient Care Team: Pcp, Outside as PCP - General -Patient provided Land Mobile Radio Technician permission to coordinate hospital discharge appointment, pending community discharge Contact(s) preferred for Weekly Conferences: Liyah Lopez Relation: Preferred Pharmacy for discharge medications: [facility] GCT/Discharge Pharmacy Interventions: PCP- 09/08 - pt's provided healthcare representative with contact info for pt's new PCP and verified appointment: 09/25 at 1:30pm- establish care [facility] PRIMARY CARE - [address] [place] [address], [address] [place] [address] P: [phone], F: [phone] senior insight manager cancelled appt per pt/ request: scheduled with MARIELLA Palacios of Dr. [facility] on 09/16at 1:10 pm. [facility] Care [id number] [place] [phone] * Shira Ruiz, OT - 09/08/2022 11:15 AM PDT Treatment Note 09/08/22 1115 OT Last Visit OT Diagnosis Kendall Lopez is an 82 year-old RHD male with history of HTN, HLD, T1DM, RA on immunosuppression who presented to an OSH with AMS/aphasia, found to have acute left basal ganglia and thalamus infarcts, subacute right centrum semioval and old right frontal infarcts with etiology 2/2 ath erosclerotic disease. OT Consideration Type 1 Diabetes, insulin dep; Decreased memory, visual percpetual impairments, decinsight into safety, bed alarm Therapy Minutes (IP Rehab Only) Family/Caregiver Present Yes (S/O) OT Treatment START Time 1115 Treatment End Time 1205 OT Individual 50 OT Daily Recommendations OT Daily Recommendations Showers MWF, toileting with min A to toilet, ambulating with FWW CGA Subjective Patient Report/Self-Assessment patient alert and agreeable to shower [employer] Is an child and adolescent psychologist used? No Self-Care/Home Management Time Entry (min) 45 Minutes Upper Body Dressing Supervision / Stand by assistance UE Dressing Comments to doff/hannah tshirt Lower Body Dressing Minimum Assist (less than 25% help needed) LE Dressing Comments to doff/hannah shorts, patient requiring cues to complete from sitting position;using grapple yarder operator to hannah pants Putting on/taking off footwear Dependent (greater than 75% help needed) Putting on/taking off footwear Comment to doff/hannah socks this session as dressing stick and sock aide cannot be found Bathing Minimum Assist (less than 25% help needed) Bathing Comments completed seated on shower seat; patient's spouse providing physical assist however requiring max verbal cues and OT stepping in 3 times to provide physical assistance to patient to ensure safety. Patient requiring assist for standing balance for kim care and cues for sequencing task. Patient's spouse will benefit from continued training to assess ability to safely complete showers with patient at home. ADL Comments Patient requiring supervision for all ADLs, patient's spouse with limited recall of techniques utilized last week for training. Further training recommended to ensure safety and recall of recommendations. IADL Comments Heart Monitor Education: OT educating patient and spouse on directions for heart monitor, including placement of electrodes, charging of monitor, and expected wear time. To assess recall in future sessions At beginning of session, noted that heart monitor was donned to EKG pads and not electrodes that are supplied with kit. EKG tea also placed in different location than heart monitor directions indicate, RN alerted. OT placing heart monitor in locations as indicated by directions with kit after shower completed. Transfers Sit<>Stand Supervision / Stand by assistance Sit <> Stand Comments with FWW Shower Transfer Contact guard assist (touching/steadying assistance) Shower Transfers Comments FWW OT Activities Total time minutes Total Exercise/Activity Time Rows 45 Pt was left seated EOB eating lunch, with call light in reach, spouse present, and bed alarm on. Shira Ruiz OTD, OTR/L * Paul Stanford MD - 09/08/2022 10:18 AM PDT Rehabilitation Medicine Progress Note Kendall Lopez (Kendall) - : 1940 (82 year old male) Preferred Pronouns: he/him/his PCP: Cici Jones MD Code Status: Full Code CHIEF CONCERN / IDENTIFICATION: Kendall Lopez is an 82 year-old RHD male with history of HTN, HLD, T1DM, RA on immunosuppression who presented to an OSH with AMS/aphasia, found to have 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 SUBJECTIVE Caregiver training today with . Feeling well. No AEON. Able to tell me what he had eaten for breakfast reliably. MEDICATIONS: Scheduled medications: aspirin, 325 mg, Oral, Daily heparin, 5,000 units, Subcutaneous, q12h ASTRID hydroxychloroquine, 200 mg, Oral, BID insulin GLARGINE, 16 units, Subcutaneous, q AM insulin LISPRO, 0-4 units, Subcutaneous, q HS insulin LISPRO, 0-5 units, Subcutaneous, TID before meals insulin LISPRO, 0-8 units, Subcutaneous, q24h insulin LISPRO, , Subcutaneous, TID before meals rosuvastatin, 5 mg, Oral, Daily senna, 17.2 mg, Oral, BID sulfaSALAzine, 1,000 mg, Oral, BID PRN medications: PRN medications: acetaminophen, dextrose, dextrose, glucagon, glucagon, melatonin, ondansetron, zinc oxide OBJECTIVE T: 36.4 ??C (08/27/222037) BP: 116/84 (08/27/222037) HR: 80 (08/27/222037) RR: 16 (08/27/222037) SpO2: 95 % (08/27/222037) Room air Vitals (Most recent in last 24 hrs) T: 36.6 ??C (09/08/22750) BP: 119/69 (09/08/22750) HR: 74 (09/08/22 075) RR: 16 (09/08/22 075) SpO2: 97 % (09/08/22750) Room air T range: Temp Min: 36.6 ??C Max: 36.7 ??C Wt 153 lb (69.4 kg) Ht 5' 11 (1.803 m) Body mass index is 21.34 kg/m??. Physical Exam: General: no acute distress, resting comfortably HEENT: normocephalic Cadiac: extremities warm and well perfused Pulmonary: nonlabored breathing on room air Abdomen: nondistended Neuro: alert and awake Aox2-3 name okay, knew hospital, but not which. Guessed C on . Knew month year not day Able to name simple objects, colors of objects LABS: Labs (last 24 hours): Chemistries CBC LFT Gases, other - - - 142 - AST: - ALT: - -/-/-/- -/-/-/- - - - - >< - AP: - T bili: - Lact (a): - Lact (v): - eGFR: - Ca: - - Prot: - Alb: - Trop I: - D-dimer: - Mg: - PO4: - ANC: - BNP: - Anti-Xa: - ALC: - INR: - ADDITIONAL RESULTS/IMAGING: MICRO: I have personally reviewed the latest Micro results and cultures IMAGING: I have reviewed the latest radiology results PATHOLOGY: I have reviewed the latest pathology results ASSESSMENT/PLAN Kendall Lopez is an 82 year-old RHD male with history of HTN, HLD, T1DM, RA on immunosuppression who presented to an OSH with AMS/aphasia, found to have 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 Now medically stable and admitted to [facility] on 08/27/22 for intensive PT, OT, speech therapy. 09/07 - Pending glycemic control consult to educate on insulin management - SO Caregiver training today - Pending yeast culture on c auris screen, contact isolation - no fungus isolated in 3 days #Rehabilitation plan for ischemic infarct - Continue comprehensive inpatient rehabilitation care including medicine, nursing, physical therapy, occupational therapy, speech therapy, recreational therapy and rehabilitation psychology. Memory Memory is challenge especially antegrade Speech therapy recs: Reinforced introduction to memory book. While referencing calendar, pt ID date, day, mo, yr. Speech Word-finding expressive aphasia noted Agitation None currently Pain No concerns at this time Sleep No concerns at this time 8. Bowel/Bladder a. No concerns at this time 9. Nutrition a. No concerns at this time. Full diet 10. Decreased mood a. No SI/HI - rehab psych becoming involved 11. Mobility a. CGA with all transfers, ambulating 200 ft with no AD Meng 12. Cognitive a. Paying bills requires modA->MaxA for money management tasks b. Still requiring maxA cueing to describe object characteristics 13. Self-long term management a. 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 History of old right frontalinfarct, subacute right centrum semioval infarct. Acute/subacute ischemic infarcts in bilateral hemispheres in multiple territories with unknown etiology, currently undergoing extensive workup for feng rce. TTE was negative for atrial mass, which was initial suspicion for a cardioembolic source. Blood cx NGTD and no s/sx of infection, making infective endocarditis very unlikely currently. MRI blackblood had findings most consistent with atherosclerotic changes, with no evidence of vasculitis or other inflammatory process, r/o RA vasculitis. APS labs negative. CT C/A/P overall unremarkable, x1 5mm indeterminate lung nodule and calcified granulomas. Repeat TCD negative. Will work to obtain OSHecho images to ensure there was no prior mass seen. Continue neuro checks with VS monitoring. Continue goals for normotension, normothermia, eunatremia- goal 135-145, and euglycemia: BG <180. The pt remains on ASA 325mg daily and DVT ppx - SQH [id number]. 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 Seems mostly good control at home. Will cont to monitor BGcontrol on current regimen. Appreciate endocrinology recs/assistance as needed. - glargine 18u qam --> 16u starting 09/03 - nutritional insulin 1u:10 carbs - LDSSI w/ meals + qhs - Consult to glycemic control given elevations today and to simplify regimen given cog deficits. 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 Cardiology not concerned and no s/sx of hemodynamic compromise or tamponade.Plan for further monitor outpatient w/ his rn trauma. - outpatient cardiology f/u and eval #ARNAV - Unclear baseline sCr - though prior Cr 1.1 a year ago. Cr 1.32 on admission, now 1.15 on 02/27/22. #HLD - rosuvastatin 5mg #Rheumatoid Arthritis Patient does not endorse any arthritic pain or flare-up episode. To maintain optimal immunosuppression, restarted home RA meds. - continue sulfasalazine and hydroxychloroquine #Asthma, stable - uses fluticasone/salmetrol at home - duoneb prn ordered Inpatient Checklist: Fluids/Electrolytes/Nutrition: Diabetic diet Prophylaxis: SQH q12h Lines/Drains/Airways: pIV Disposition: Neurology acute care Code Status: FULL Contacts: Liyah Lopez - - [phone] GENERAL HEALTH MANAGEMENT Diet: Adult Diet Regular; Carbohydrate managed Bowel Status: Spontaneous, continent Bladder Status: Spontaneous, continent DVT Prophylaxis: SubQ hep Estimated Length of Stay: 10-14 Discharge Location: Home ANTICIPATED FOLLOW-UP AFTER DISCHARGE Rehab Medicine within 1 month after discharge Primary Care Physician within 1 weeks after discharge Therapies: To be determined On discharge, the patient will need the following follow up: - endocrinology - PCP - stroke clinic - cardiology to follow up the cardiac event monitor Associated attestation - Souleymane Park DO - 09/08/2022 2:32 PM PDT Date of Service: 09/08/22 I saw and evaluated the patient. I have reviewed the resident(s)'s/fellow(s)'s documentation and agree. Discussing discharge options with patient and family as team with concerns regarding caregiver training today. I spent a total of 60 minutes for the patient's care on the date of the service. * Souleymane Park, DO - 09/06/2022 12:32 PM PDT Rehabilitation Medicine Progress Note Kendall Lopez (Kendall) - : 1940 (82 year old male) Preferred Pronouns: he/him/his PCP: Cici Jones MD Code Status: Full Code CHIEF CONCERN / IDENTIFICATION: Kendall Lopez is an 82 year-old RHD male with history of HTN, HLD, T1DM, RA on immunosuppression who presented to an OSH with AMS/aphasia, found to have 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 SUBJECTIVE No overnight events. Participating well in therapy and then later resting in bed. MEDICATIONS: Scheduled medications: aspirin, 325 mg, Oral, Daily heparin, 5,000 units, Subcutaneous, q12h ASTRID hydroxychloroquine, 200 mg, Oral, BID insulin GLARGINE, 16 units, Subcutaneous, q AM insulin LISPRO, 0-4 units, Subcutaneous, q HS insulin LISPRO, 0-5 units, Subcutaneous, TID before meals insulin LISPRO, 0-8 units, Subcutaneous, q24h insulin LISPRO, , Subcutaneous, TID before meals rosuvastatin, 5 mg, Oral, Daily senna, 17.2 mg, Oral, BID sulfaSALAzine, 1,000 mg, Oral, BID PRN medications: PRN medications: acetaminophen, dextrose, dextrose, glucagon, glucagon, melatonin, ondansetron, zinc oxide OBJECTIVE T: 36.4 ??C (08/27/222037) BP: 116/84 (08/27/222037) HR: 80 (08/27/222037) RR: 16 (08/27/222037) SpO2: 95 % (08/27/222037) Room air Vitals (Most recent in last 24 hrs) T: 36.4 ??C (09/06/22699) BP: 124/68 (09/06/22 07) HR: 86 (09/06/22699) RR: 16 (09/06/22699) SpO2: 98 % (09/06/22699) Room air T range: Temp Min: 36.4 ??C Max: 37 ??C Wt 153 lb (69.4 kg) Ht 5' 11 (1.803 m) Body mass index is 21.34 kg/m??. Physical Exam: General: no acute distress, resting comfortably HEENT: normocephalic Cadiac: extremities warm and well perfused Pulmonary: nonlabored breathing on room air Abdomen: nondistended Neuro: alert and awake Aox2-3 name okay, knew hospital, but not which. Guessed [facility] [place] . Knew month year not day Able to name simple objects, colors of objects LABS: Labs (last 24 hours): Chemistries CBC LFT Gases, other - - - 243 - AST: - ALT: - -/-/-/- -/-/-/- - - - - >< - AP: - T bili: - Lact (a): - Lact (v): - eGFR: - Ca: - - Prot: - Alb: - Trop I: - D-dimer: - Mg: - PO4: - ANC: - BNP: - Anti-Xa: - ALC: - INR: - ADDITIONAL RESULTS/IMAGING: MICRO: I have personally reviewed the latest Micro results and cultures, no growth in yeast positive culture for 1 day IMAGING: I have reviewed the latest radiology results PATHOLOGY: I have reviewed the latest pathology results ASSESSMENT/PLAN Kendall Lopez is an 82 year-old RHD male with history of HTN, HLD, T1DM, RA on immunosuppression who presented to an OSH with AMS/aphasia, found to have 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 Now medically stable and admitted to [facility] on 08/27/22 for intensive PT, OT, speech therapy. 09/06 - Pending glycemic control consult to educate on insulin management - Pending yeast culture on lashonda slater screen, contact isolation #Rehabilitation plan for ischemic infarct - Continue comprehensive inpatient rehabilitation care including medicine, nursing, physical therapy, occupational therapy, speech therapy, recreational therapy and rehabilitation psychology. Memory Memory is challenge especially antegrade Speech therapy recs: Reinforced introduction to memory book. While referencing calendar, pt ID date, day, mo, yr. Speech Word-finding expressive aphasia noted Agitation None currently Pain No concerns at this time Sleep No concerns at this time 8. Bowel/Bladder a. No concerns at this time 9. Nutrition a. No concerns at this time. Full diet 10. Decreased mood a. No SI/HI - rehab psych becoming involved 11. Mobility a. CGA with all transfers, ambulating 200 ft with no AD Meng 12. Cognitive a. Paying bills requires modA->MaxA for money management tasks b. Still requiring maxA cueing to describe object characteristics 13. Self-long term management a. 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 History of old right frontalinfarct, subacute right centrum semioval infarct. Acute/subacute ischemic infarcts in bilateral hemispheres in multiple territories with unknown etiology, currently undergoing extensive workup for feng rce. TTE was negative for atrial mass, which was initial suspicion for a cardioembolic source. Blood cx NGTD and no s/sx of infection, making infective endocarditis very unlikely currently. MRI blackblood had findings most consistent with atherosclerotic changes, with no evidence of vasculitis or other inflammatory process, r/o RA vasculitis. APS labs negative. CT C/A/P overall unremarkable, x1 5mm indeterminate lung nodule and calcified granulomas. Repeat TCD negative. Will work to obtain OSHecho images to ensure there was no prior mass seen. Continue neuro checks with VS monitoring. Continue goals for normotension, normothermia, eunatremia- goal 135-145, and euglycemia: BG <180. The pt remains on ASA 325mg daily and DVT ppx - SQH [id number]. 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 Seems mostly good control at home. Will cont to monitor BGcontrol on current regimen. Appreciate endocrinology recs/assistance as needed. - glargine 18u qam --> 16u starting 09/03 - nutritional insulin 1u:10 carbs - LDSSI w/ meals + qhs - Consult to glycemic control given elevations today and to simplify regimen given cog deficits. 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 Cardiology not concerned and no s/sx of hemodynamic compromise or tamponade.Plan for further monitor outpatient w/ his rn trauma. - outpatient cardiology f/u and eval #ARNAV - Unclear baseline sCr - though prior Cr 1.1 a year ago. Cr 1.32 on admission, now 1.15 on 02/27/22. #HLD - rosuvastatin 5mg #Rheumatoid Arthritis Patient does not endorse any arthritic pain or flare-up episode. To maintain optimal immunosuppression, restarted home RA meds. - continue sulfasalazine and hydroxychloroquine #Asthma, stable - uses fluticasone/salmetrol at home - duoneb prn ordered Inpatient Checklist: Fluids/Electrolytes/Nutrition: Diabetic diet Prophylaxis: SQH q12h Lines/Drains/Airways: pIV Disposition: Neurology acute care Code Status: FULL Contacts: Liyah Lopez - - [phone] GENERAL HEALTH MANAGEMENT Diet: Adult Diet Regular; Carbohydrate managed Bowel Status: Spontaneous, continent Bladder Status: Spontaneous, continent DVT Prophylaxis: SubQ hep Estimated Length of Stay: 10-14 Discharge Location: Home ANTICIPATED FOLLOW-UP AFTER DISCHARGE Rehab Medicine within 1 month after discharge Primary Care Physician within 1 weeks after discharge Therapies: To be determined On discharge, the patient will need the following follow up: - endocrinology - PCP - stroke clinic - cardiology to follow up the cardiac event monitor * Anita Griffin, PT - 09/06/2022 12:31 PM PDT 09/06/22 0820 PT Last Visit PT Diagnosis 82 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 No Subjective Patient Report/Self-Assessment Pt agrees to therapy. Reports legs are getting tired by end of session. PT Daily Recommendations PT IRF Daily Recommendations SBA for transfers and walking with FWW. Community Level 0 Therapeutic Activity Therapeutic Activity Time Entry 15 Therapeutic Activity 1 Supine<>sit with supervision. Therapeutic Activity 2 Sit<>stand transfers with FWW and SBA, with no AD and SBA-CGA. Therapeutic Activity 3 Sit<>stand from mat table 2 x 10. Heel raises and marching without UE support. Gait Training Gait Training Time Entry 25 Gait Training Activity 1 Pt ambulated 150 feet x 2, 450 feet with FWW and SBA. Gait Training Activity 2 Pt ambulated 250 feet with no AD and CGA. Gait Training Activity 3 Pt ambulated weaving around cones placed 3 feet apart - with FWW and SBA, with no AD and CGA. * Inna Peoples, OT - 09/05/2022 4:17 PM PDT 09/05/22 1430 OT Last Visit OT Received On 09/05/22 OT Diagnosis Kendall Lopez is an 82 year-old RHD male with history of HTN, HLD, T1DM, RA on immunosuppression who presented to an OSH with AMS/aphasia, found to have acute left basal ganglia and thalamus infarcts, subacute right centrum semioval and old right frontal infarcts with etiology 2/2 ath erosclerotic disease. OT Consideration Type 1 Diabetes, insulin dep; Decreased memory, visual percpetual impairments, decinsight into safety, bed alarm Therapy Minutes (IP Rehab Only) Document Type Progress Family/Caregiver Present Yes OT Treatment START Time 1430 Treatment End Time 1515 OT Individual 45 OT Daily Recommendations OT Daily Recommendations Showers MWF, toileting with min A to toilet, ambulating with FWW CGA Subjective Patient Report/Self-Assessment I am ready to go Patient Stated Goal agreeable to therapy and reports I want to go to the gym [employer] Is an child and adolescent psychologist used? No Bed Mobility Rolling Left Independent Rolling Right Independent Supine>Sit Independent Sit>Supine Independent Scooting Independent Other (Details) needs increased time Transfers Sit<>Stand Supervision / Stand by assistance Sit <> Stand Comments w/ FWW Functional Mobility Distance room <> therapy gym Assistance Needs Supervision / Stand by assistance Functional Mobility Assistive Device Details Front wheeled walker Functional Mobility Comments Pt able to pathfind to gym; min cues to keep FWW close to body; pt able to correct after verbal cue for remainder of session Therapeutic Activity Therapeutic Activity Time Entry 45 Therapeutic Activity 1 visual scanning and standing balance: searching for items on board with velcro items on wall, taking off items and placing them on table next to pt in standing without AD; pt demo'd no LOB; required Min cueing to utilize visual scanning strategy and slow scanning ti minimize skipping important items in visual field Therapeutic Activity 2 dynamic standing balance: throwing and catching ball with daughter and therapist CGA-SBA, shooting ball into target hoop; pt with no signs of LO; required cues for positioning wider JIGAR Therapeutic Activity 3 functional mobility and path finding Therapeutic Activity 4 education in functional use of UE to continue functional gains in therapy Therapeutic Activity 5 education on recommended bathroom equipment; daughter reports has purchased all necessary equipment OT Activities Total time minutes Total Exercise/Activity Time Rows 45 Pt left supine in bed with daughter in room and call button in reach. 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 No Subjective Patient Report/Self-Assessment Pt agrees to therapy. Reports not too fatigued this afternoon. PT Daily Recommendations PT IRF Daily Recommendations SBA for transfers and walking with FWW. Community Level 0 Therapeutic Activity Therapeutic Activity Time Entry 5 Therapeutic Activity 1 Supine<>sit with supervision. Therapeutic Activity 2 Sit<>stand transfers throughout session with FWW and SBA v. no AD and SBA-CGA. Gait Training Gait Training Time Entry 40 Gait Training Activity 1 Pt ambulated 150 feet x 2, 450 feet with FWW and SBA. Gait Training Activity 2 Pt ambulated 250 feet, 100 feet with no AD and CGA, cues for upright posture, controlling his speed. Gait Training Activity 3 In parallel bars: sidestepping (no UE support), backward walking (no UE support), forward marching (no UE support), stepping forward over obstacles (intermittent UE support),lateral stepping over obstacles (BUE support). CGA throughout. Seated rest breaks as needed. * Lida Storm, STRAIGHT CUTTER - 09/05/2022 2:47 PM PDT Speech Language Pathology Treatment Patient Name: Kendall Lopez Today's Date: 09/05/2022 Subjective Patient Report/Self-Assessment: Pt seen in therapy room. Agreeable to session. 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 No past surgical history on file. General Visit Information [employer] Last Visit [employer] Received On: 09/05/22 [employer] Document Type: Progress [employer] Total Treatement Time in Minutes: 45 Minutes Visual Acuity: Corrective lenses Auditory Acuity: Functional in conversation Family/Caregiver Present: No Prior Function Prior Function: Pt reports he lives in [place] with his . Neurology note states: right frontal infarct in the MCA/AYLIN territory in June. Unclear whether pt had residual cognitive-communicationdeficits, plan to discuss with family when present. 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 Required redirection to front ofbinder to ID [facility] city. Required mod A verbal choices to ID location hospital and mod A verbal cue to recall situation. -People: While referencing photo page, pt required mod A verbal/visual cue to ID PT, i'ly ID activities from photo page list. While referencing photo page list pt ID OT, required mod A verbal/visual cue to ID activities list. 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 VERBAL EXPRESSION -Verbal Fluency: Pt required max A to generate +2/5 farm animals. Pt did not benefit from SFA type cueing for describing 3rd animal he was thinking of. EDUCATION -Provided education re: CVA, type, causes. Discussed typical daily activities at home, and which will now require support and why, reviewed safety concerns. Pt demonstrating emerging insight into safety precautions and need for additional assist at this time (compared with last week). -Pt ID +2/3 reasons why going to a restaurant might be different/challenging now compared to beforerecent CVA. Assessment/Plan Swallow Recommendations Diet Recommendations: Regular;0-Thin liquids Medication Administration Recommendations: Meds as tolerated Oral care: Frequency: 2-3x per day Aspiration Precautions: As upright as medically possible for all oral intake;Fully alert for all POintake;One sip at a time;Cut up/set up Cognitive Communication Recommendations Cognitive Communication Recommendations : Allow patient breaks as needed;Follow consistent routine as able;Reduce external stimuli (TV, smart phone, electronic devices, number of visitors) Communication Recommendations: Allow automatic function as able;Make sure you have patient's attention before speaking to them;Keep verbal input short, simple, direct;Give patient extra time to respond and speak;Try asking simple yes/no questions * Anita Griffin, PT - 09/05/2022 12:24 PM PDT 09/05/22 0945 PT Last Visit PT Diagnosis 82 M 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 No Subjective Patient Report/Self-Assessment Pt agrees to therapy. Reports no questions/concerns about home exercise program. PT Daily Recommendations PT IRF Daily Recommendations SBA for transfers and walking with FWW. Community Level 0 Therapeutic Activity Therapeutic Activity Time Entry 10 Therapeutic Activity 1 Supine<>sit with supervision. Therapeutic Activity 2 Sit<>stand transfers throughout session with FWW and SBA, with no AD and SBA-CGA. Therapeutic Activity 3 Partial sit<>stands with squat with chair touch 2 x 10. Balance/Neuromuscular Re-Education Neuromuscular Re-Education Time Entry 15 Balance/Neuromuscular Re-Education Activity 1 Home exercise program: standing feet together, modified tandem stance B, feet together + vertical/horizontal head turns, squat with chair touch, marching, heel raises - all exercises without UE support but with FWW in front to use as needed to catch balance. Performed with SBA and rest breaks as needed. Handout issued. Gait Training Gait Training Time Entry 20 Gait Training Activity 1 Pt ambulated 150 feet, 300 feet, 350 feet with FWW and SBA. Gait Training Activity 2 Pt ambulated 250 feet x 2 with no AD and CGA, up to min A for mild lateralv. forward LOB. * Noa Nixon, PT - 09/05/2022 11:38 AM PDT Land Mobile [employer] Technician Progress- Discharge Planning Note Visit Information Admission diagnosis: Cerebrovascular accident (CVA) of left basal ganglia (HCC) Expected Discharge Date: Discharge Plan: Home Insurance Information MEDICARE/MEDICARE PART A AND B Subscriber: Kendall Lopez Subscriber#: [id number] Group#: -- Precert#: -- [facility] AARP MEDICARE SUPPLEMENT Subscriber: Kendall Lopez Subscriber#: [id number] Group#: -- Precert#: -- Primary Care Provider/Care Team: Primary Care Provider: Patient Care Team: Cici Jones MD as PCP - General (Internal Medicine) -Patient provided Land [employer] Technician permission to coordinate hospital discharge appointment, pending community discharge Contact(s) preferred for Weekly Conferences: Liyah Lopez [place] Relation: Preferred Pharmacy for discharge medications: [facility] GCT/Discharge Pharmacy Interventions: PCP- After care appointment scheduled with MARIELLA Palacios of [facility] on 09/16 at 1:10 pm. Changed appt to telemedicine per pt and 's request Please arrive 10-15 minutes prior to your appointment for check-in [facility] [address] [address] * Paul Stanford MD - 09/05/2022 10:21 AM PDT Rehabilitation Medicine Progress Note Kendall Lopez (Kendall) - : 1940 (82 year old male) Preferred Pronouns: he/him/his PCP: Cici Jones MD Code Status: Full Code CHIEF CONCERN / IDENTIFICATION: Kendall Lopez is an 82 year-old RHD male with history of HTN, HLD, T1DM, RA on immunosuppression who presented to an OSH with AMS/aphasia, found to have 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 SUBJECTIVE Feeling well this AM. No AEON. Says he walked with therapy in gym. No pain, nausea, sleeping well, no c/f b//b incont. MEDICATIONS: Scheduled medications: aspirin, 325 mg, Oral, Daily heparin, 5,000 units, Subcutaneous, q12h ASTRID hydroxychloroquine, 200 mg, Oral, BID insulin GLARGINE, 16 units, Subcutaneous, q AM insulin LISPRO, 0-4 units, Subcutaneous, q HS insulin LISPRO, 0-5 units, Subcutaneous, TID before meals insulin LISPRO, 0-8 units, Subcutaneous, q24h insulin LISPRO, , Subcutaneous, TID before meals rosuvastatin, 5 mg, Oral, Daily senna, 17.2 mg, Oral, BID sulfaSALAzine, 1,000 mg, Oral, BID PRN medications: PRN medications: acetaminophen, dextrose, dextrose, glucagon, glucagon, melatonin, ondansetron, zinc oxide OBJECTIVE T: 36.4 ??C (08/27/222037) BP: 116/84 (08/27/222037) HR: 80 (08/27/222037) RR: 16 (08/27/222037) SpO2: 95 % (08/27/222037) Room air Vitals (Most recent in last 24 hrs) T: 36.7 ??C (09/05/22722) BP: 90/62 (09/05/22722) HR: 85 (09/05/22722) RR: 15 (09/05/22722) SpO2: 97 % (09/05/22722) Room air T range: Temp Min: 36.2 ??C Max: 36.7 ??C Wt 153 lb (69.4 kg) Ht 5' 11 (1.803 m) Body mass index is 21.34 kg/m??. Physical Exam: General: no acute distress, resting comfortably HEENT: normocephalic [place]ac: extremities warm and well perfused Pulmonary: nonlabored breathing on room air Abdomen: nondistended Neuro: alert and awake Aox2-3 name okay, knew hospital, but not which. Guessed [facility] on . Knew month year not day Able to name simple objects, colors of objects LABS: Labs (last 24 hours): Chemistries CBC LFT Gases, other - - - 109 - AST: - ALT: - -/-/-/- -/-/-/- - - - - >< - AP: - T bili: - Lact (a): - Lact (v): - eGFR: - Ca: - - Prot: - Alb: - Trop I: - D-dimer: - Mg: - PO4: - ANC: - BNP: - Anti-Xa: - ALC: - INR: - ADDITIONAL RESULTS/IMAGING: MICRO: I have personally reviewed the latest Micro results and cultures IMAGING: I have reviewed the latest radiology results PATHOLOGY: I have reviewed the latest pathology results ASSESSMENT/PLAN Kendall Lopez is an 82 year-old RHD male with history of HTN, HLD, T1DM, RA on immunosuppression who presented to an OSH with AMS/aphasia, found to have 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 Now medically stable and admitted to [facility] on 08/27/22 for intensive PT, OT, speech therapy. 09/05 - Having glycemic control consult to educate on insulin management #Rehabilitation plan for ischemic infarct - Continue comprehensive inpatient rehabilitation care including medicine, nursing, physical therapy, occupational therapy, speech therapy, recreational therapy and rehabilitation psychology. Memory Memory is challenge especially antegrade Speech therapy recs: Reinforced introduction to memory book. While referencing calendar, pt ID date, day, mo, yr. Speech Word-finding expressive aphasia noted Agitation None currently Pain No concerns at this time Sleep No concerns at this time 8. Bowel/Bladder a. No concerns at this time 9. Nutrition a. No concerns at this time. Full diet 10. Decreased mood a. No SI/HI - rehab psych becoming involved 11. Mobility a. CGA with all transfers, ambulating 200 ft with no AD Meng 12. Cognitive a. Paying bills requires modA->MaxA for money management tasks b. Still requiring maxA cueing to describe object characteristics 13. Self-long term management a. 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 History of old right frontalinfarct, subacute right centrum semioval infarct. Acute/subacute ischemic infarcts in bilateral hemispheres in multiple territories with unknown etiology, currently undergoing extensive workup for feng rce. TTE was negative for atrial mass, which was initial suspicion for a cardioembolic source. Blood cx NGTD and no s/sx of infection, making infective endocarditis very unlikely currently. MRI blackblood had findings most consistent with atherosclerotic changes, with no evidence of vasculitis or other inflammatory process, r/o RA vasculitis. APS labs negative. CT C/A/P overall unremarkable, x1 5mm indeterminate lung nodule and calcified granulomas. Repeat TCD negative. Will work to obtain OSHecho images to ensure there was no prior mass seen. Continue neuro checks with VS monitoring. Continue goals for normotension, normothermia, eunatremia- goal 135-145, and euglycemia: BG <180. The pt remains on ASA 325mg daily and DVT ppx - SQH [id number]. 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 Seems mostly good control at home. Will cont to monitor BGcontrol on current regimen. Appreciate endocrinology recs/assistance as needed. - glargine 18u qam --> 16u starting 09/03 - nutritional insulin 1u:10 carbs - LDSSI w/ meals + qhs - Consult to glycemic control given elevations today and to simplify regimen given cog deficits. 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 Cardiology not concerned and no s/sx of hemodynamic compromise or tamponade.Plan for further monitor outpatient w/ his rn trauma. - outpatient cardiology f/u and eval #ARNAV - Unclear baseline sCr - though prior Cr 1.1 a year ago. Cr 1.32 on admission, now 1.15 on 02/27/22. #HLD - rosuvastatin 5mg #Rheumatoid Arthritis Patient does not endorse any arthritic pain or flare-up episode. To maintain optimal immunosuppression, restarted home RA meds. - continue sulfasalazine and hydroxychloroquine #Asthma, stable - uses fluticasone/salmetrol at home - duoneb prn ordered Inpatient Checklist: Fluids/Electrolytes/Nutrition: Diabetic diet Prophylaxis: SQH q12h Lines/Drains/Airways: pIV Disposition: Neurology acute care Code Status: FULL Contacts: Liyah Lopez - - [phone] GENERAL HEALTH MANAGEMENT Diet: Adult Diet Regular; Carbohydrate managed Bowel Status: Spontaneous, continent Bladder Status: Spontaneous, continent DVT Prophylaxis: SubQ hep Estimated Length of Stay: 10-14 Discharge Location: Home ANTICIPATED FOLLOW-UP AFTER DISCHARGE Rehab Medicine within 1 month after discharge Primary Care Physician within 1 weeks after discharge Therapies: To be determined On discharge, the patient will need the following follow up: - endocrinology - PCP - stroke clinic - cardiology to follow up the cardiac event monitor Associated attestation - Souleymane Park, DO - 09/05/2022 4:16 PM PDT Date of Service: 09/05/22 I saw and evaluated the patient. I have reviewed the resident(s)'s/fellow(s)'s documentation and agree. YEAST positive on c. auris screen, pending culture and on contact precaution. * Gilbert Munoz, OT - 09/05/2022 9:11 AM PDT 09/05/22 0815 OT Last Visit OT Received On 09/05/22 OT Consideration Type 1 Diabetes, insulin dep; Decreased memory, visual percpetual impairments, decinsight into safety, bed alarm Therapy Minutes (IP Rehab Only) Document Type Progress Family/Caregiver Present No OT Treatment START Time 0815 Treatment End Time 0900 OT Individual 45 OT Daily Recommendations OT Daily Recommendations Showers MWF, toileting with min A to toilet, ambulating with FWW and CGA-min A Subjective Patient Report/Self-Assessment I love puzzles Patient Stated Goal Patient agreeable to OT [employer] Is an child and adolescent psychologist used? No Self-Care/Home Management Time Entry (min) 20 Minutes Grooming Contact guard assist (touching/steadying assistance) Grooming Comments to wash hands standing at sink Oral Hygiene Contact guard assist (touching/steadying assistance) Oral Hygiene Comments standing at sink Upper Body Dressing Supervision / Stand by assistance UE Dressing Comments to don/doff button up shirt and t-shirt seated from EOB LE Dressing Comments declines changing pants this date Putting on/taking off footwear Minimum Assist (less than 25% help needed) Putting on/taking off footwear Comment to don shoes with use of dressing stick - min A to stabilizeshoe Toileting Contact guard assist (touching/steadying assistance) Toileting Comments from standard toilet - verbal cue to lower pants/brief prior to sitting Bed Mobility Supine>Sit Supervision / Stand by assistance Sit>Supine Supervision / Stand by assistance Scooting Supervision / Stand by assistance Transfers Sit<>Stand Contact guard assist (touching/steadying assistance) Cuing Used Verbal Sit <> Stand Comments w/ FWW Bed<>Chair/WC Contact guard assist (touching/steadying assistance) Bed<>Chair/Wheelchair Comments w/ FWW Toilet Transfer Contact guard assist (touching/steadying assistance) Toilet Transfers Comments w/ FWW and use of grab bars Functional Mobility Distance room <> therapy gym Assistance Needs Contact guard assist (touching/steadying assistance) Functional Mobility Assistive Device Details Front wheeled walker Therapeutic Activity Therapeutic Activity Time Entry 25 Therapeutic Activity 1 ambulation room <> therapy gym; good negotiation of obstacles, able topathfind for return to room Therapeutic Activity 2 Visuospatial problem solving using [employer] game. Patient completed level 2and 3, requires max verbal cues to complete first puzzle, min verbal cues for second puzzle. Good attention to task throughout and improved independent problem solving with practice OT Activities Total time minutes Total Exercise/Activity Time Rows 45 Patient left in bed with call light in reach and bed alarm engaged. OT needs met. * Rocío, Reema Cummins, BETSEY - 09/04/2022 5:23 PM PDT Physical Therapy 09/04/22 1300 General PT Treatment Start Time 1300 Treatment End Time 1345 PT Individual 45 [employer] Is an child and adolescent psychologist used? No Subjective Patient Report/Self-Assessment Pt received sitting EOB, reporting he would like to use the bathroombefore leaving the room. Upon doffing briefs, it was evident pt had been incontinent of stool, requiring cleanup and LB dressing changes. Patient Stated Goal(s) None stated. Activity Tolerance / Endurance Activity Tolerance /Endurance Tolerates 30 min of activity with multiple rests Therapeutic Activity Therapeutic Activity Time Entry 20 Therapeutic Activity 1 Amb to bathroom for toileting with no AD and CGA, MaxA for doffing briefs due to incontinence. VCs for pt to use R grab bar in standing and for sit <> stand transfers with CGA. Therapeutic Activity 2 Dependent for pericare due to extensive cleanup, with pt attempting to assist as appropriate. Therapeutic Activity 3 ModA for threading B LE's through clean briefs and shorts and pulling over hips with pt holding onto grab bar with R UE. Therapeutic Activity 4 Hand hygiene at sink with SBA and no AD Therapeutic Activity 5 Multiple sit <> stands from EOB, toilet, benches on 2W with FWW and Supervision Gait Training Gait Training Time Entry 25 Gait Training Activity 1 Amb x 450' x 2 with FWW and SBA, over carpet, up/down ramp, navigating thresholds Gait Training Activity 2 Amb x 200' with FWW and SBA over mats with pt requiring cues to pickling operator walker to avoid pulling up rug, navigating uneven concrete patio on 2W. * Lida Storm STRAIGHT CUTTER - 09/04/2022 3:30 PM PDT Speech Language Pathology Treatment Patient Name: Kendall Lopez Today's Date: 09/04/2022 Subjective Patient Report/Self-Assessment: Pt seen in therapy room with . 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 No past surgical history on file. General Visit Information [employer] Last Visit [employer] Received On: 09/04/22 [employer] Document Type: Progress [employer] Total Treatement Time in Minutes: 45 Minutes Visual Acuity: Corrective lenses Auditory Acuity: Functional in conversation Family/Caregiver Present: Yes Family/Caregiver Comments: Prior Function Prior Function: Pt reports he lives in [place] with his . Neurology note states: right frontal infarct in the MCA/AYLIN territory in June. Unclear whether pt had residual cognitive-communicationdeficits, plan to discuss with family when present. 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 Required redirection to front ofbinder to ID hospital, [facility] city. -People: pt required total A verbal/visual cue to ID PT and activities. I'ly ID OT, required mod A visual/verbal to ID activities. 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 VERBAL EXPRESSION -Reinforced use of semantic feature analysis (SFA) for word finding. Pt requiring significant additional education and support to complete today's SFA activities. -When provided with an item (concrete, 3 trials, 5 exemplars each) pt required max A verbal/visual cueing to generate characteristics of each item e.g., use, size, color, shape, etc. -Practiced in barrier task with SO and [employer]. When provided with 4-5 characteristics of an item (concrete, 3 trials) pt required mod-max A verbal/visual cueing and additional characteristics to generate item. Provided education and modeling of communication strategy and cueing hierarchy. Assessment/Plan Swallow Recommendations Diet Recommendations: Regular;0-Thin liquids Medication Administration Recommendations: Meds as tolerated Oral care: Frequency: 2-3x per day Aspiration Precautions: As upright as medically possible for all oral intake;Fully alert for all POintake;One sip at a time;Cut up/set up Cognitive Communication Recommendations : Allow patient breaks as needed;Follow consistent routine as able;Reduce external stimuli (TV, smart phone, electronic devices, number of visitors) Communication Recommendations: Allow automatic function as able;Make sure you have patient's attention before speaking to them;Keep verbal input short, simple, direct;Give patient extra time to respond and speak;Try asking simple yes/no questions I have reviewed the documentation of this visit and I confirm that I was present for the entire session and not engaged in other tasks. I directed / guided the services and am responsible for the assessment and treatment of this patient in this visit. - Juanjose Boyer, MS, [facility]-[employer] * Paul Stanford MD - 09/04/2022 12:57 PM PDT Rehabilitation Medicine Progress Note Kendall Lopez (Kendall) - : 1940 (82 year old male) Preferred Pronouns: he/him/his PCP: Cici Jones MD Code Status: Full Code CHIEF CONCERN / IDENTIFICATION: Kendall Lopez is an 82 year-old RHD male with history of HTN, HLD, T1DM, RA on immunosuppression who presented to an OSH with AMS/aphasia, found to have 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 SUBJECTIVE Daphne with many questions about insulin regimen which were explained in depth reassuringly. 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 Otherwise No AEON, no acute medical concerns in-house. MEDICATIONS: Scheduled medications: aspirin, 325 mg, Oral, Daily heparin, 5,000 units, Subcutaneous, q12h ASTRID hydroxychloroquine, 200 mg, Oral, BID insulin GLARGINE, 16 units, Subcutaneous, q AM insulin LISPRO, 0-4 units, Subcutaneous, q HS insulin LISPRO, 0-5 units, Subcutaneous, TID before meals insulin LISPRO, 0-8 units, Subcutaneous, q24h insulin LISPRO, , Subcutaneous, TID before meals rosuvastatin, 5 mg, Oral, Daily senna, 17.6 mg, Oral, BID sulfaSALAzine, 1,000 mg, Oral, BID PRN medications: PRN medications: acetaminophen, dextrose, dextrose, glucagon, glucagon, melatonin, ondansetron, zinc oxide OBJECTIVE T: 36.4 ??C (08/27/222037) BP: 116/84 (08/27/222037) HR: 80 (08/27/222037) RR: 16 (08/27/222037) SpO2: 95 % (08/27/222037) Room air Vitals (Most recent in last 24 hrs) T: 36.7 ??C (09/04/22737) BP: 137/76 (09/04/22737) HR: 84 (09/04/22737) RR: 16 (09/04/22737) SpO2: 97 % (09/04/22737) Room air T range: Temp Min: 36.3 ??C Max: 36.7 ??C Wt 153 lb (69.4 kg) Ht 5' 11 (1.803 m) Body mass index is 21.34 kg/m??. Physical Exam: General: no acute distress, resting comfortably HEENT: normocephalic [place]: extremities warm and well perfused Pulmonary: nonlabored breathing on room air Abdomen: nondistended Neuro: alert and awake Aox2-3 name okay, knew [facility], but thought Turkish, guessed [facility] on . Knew year, thought it was August 06 Able to name simple objects LABS: Labs (last 24 hours): Chemistries CBC LFT Gases, other 131 99 31 141 10.7 AST: - ALT: - -/-/-/- -/-/-/- 4.0 24 1.21 9.08 >< 217 AP: - T bili: - Lact (a): - Lact (v): - eGFR: >60 Ca: 9.2 32 Prot: - Alb: - Trop I: - D-dimer: - Mg: - PO4: - ANC: - BNP: - Anti-Xa: - ALC: - INR: - ADDITIONAL RESULTS/IMAGING: MICRO: I have personally reviewed the latest Micro results and cultures IMAGING: I have reviewed the latest radiology results PATHOLOGY: I have reviewed the latest pathology results ASSESSMENT/PLAN Kendall Lopez is an 82 year-old RHD male with history of HTN, HLD, T1DM, RA on immunosuppression who presented to an OSH with AMS/aphasia, found to have 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 Now medically stable and admitted to [facility] on 08/27/22 for intensive PT, OT, speech therapy. 09/04 - Having glycemic control consult to edx on insulin management #Rehabilitation plan for ischemic infarct - Continue comprehensive inpatient rehabilitation care including medicine, nursing, physical therapy, occupational therapy, speech therapy, recreational therapy and rehabilitation psychology. Memory Memory is challenge especially antegrade Speech therapy recs: Reinforced introduction to memory book. While referencing calendar, pt ID date, day, mo, yr. Speech Word-finding expressive aphasia noted Agitation None currently Pain No concerns at this time Sleep No concerns at this time 8. Bowel/Bladder a. No concerns at this time 9. Nutrition a. No concerns at this time. Full diet 10. Decreased mood a. No SI/HI - rehab psych becoming involved 11. Mobility a. CGA with all transfers, ambulating 200 ft with no AD Meng 12. Cognitive a. 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 History of old right frontalinfarct, subacute right centrum semioval infarct. Acute/subacute ischemic infarcts in bilateral hemispheres in multiple territories with unknown etiology, currently undergoing extensive workup for feng rce. TTE was negative for atrial mass, which was initial suspicion for a cardioembolic source. Blood cx NGTD and no s/sx of infection, making infective endocarditis very unlikely currently. MRI blackblood had findings most consistent with atherosclerotic changes, with no evidence of vasculitis or other inflammatory process, r/o RA vasculitis. APS labs negative. CT C/A/P overall unremarkable, x1 5mm indeterminate lung nodule and calcified granulomas. Repeat TCD negative. Will work to obtain OSHecho images to ensure there was no prior mass seen. Continue neuro checks with VS monitoring. Continue goals for normotension, normothermia, eunatremia- goal 135-145, and euglycemia: BG <180. The pt remains on ASA 325mg daily and DVT ppx - SQH [id number]. 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 Seems mostly good control at home. Will cont to monitor BGcontrol on current regimen. Appreciate endocrinology recs/assistance as needed. - glargine 18u qam --> 16u starting 09/03 - nutritional insulin 1u:10 carbs - LDSSI w/ meals + qhs - Consult to glycemic control given elevations today and to simplify regimen given cog deficits. 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 Cardiology not concerned and no s/sx of hemodynamic compromise or tamponade.Plan for further monitor outpatient w/ his rn trauma. - outpatient cardiology f/u and eval #ARNAV - Unclear baseline sCr - though prior Cr 1.1 a year ago. Cr 1.32 on admission, now 1.15 on 02/27/22. #HLD - rosuvastatin 5mg #Rheumatoid Arthritis Patient does not endorse any arthritic pain or flare-up episode. To maintain optimal immunosuppression, restarted home RA meds. - continue sulfasalazine and hydroxychloroquine #Asthma, stable - uses fluticasone/salmetrol at home - duoneb prn ordered Inpatient Checklist: Fluids/Electrolytes/Nutrition: Diabetic diet Prophylaxis: SQH q12h Lines/Drains/Airways: pIV Disposition: Neurology acute care Code Status: FULL Contacts: Liyah Lopez - - [phone] GENERAL HEALTH MANAGEMENT Diet: Adult Diet Regular; Carbohydrate managed Bowel Status: Spontaneous, continent Bladder Status: Spontaneous, continent DVT Prophylaxis: SubQ hep Estimated Length of Stay: 10-14 Discharge Location: Home ANTICIPATED FOLLOW-UP AFTER DISCHARGE Rehab Medicine within 1 month after discharge Primary Care Physician within 1 weeks after discharge Therapies: To be determined On discharge, the patient will need the following follow up: - endocrinology - PCP - stroke clinic - cardiology to follow up the cardiac event monitor Associated attestation - Souleymane Park DO - 09/04/2022 5:11 PM PDT Date of Service: 09/04/22 I saw and evaluated the patient. I have reviewed the resident(s)'s/fellow(s)'s documentation and agree. 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 No Subjective Patient Report/Self-Assessment Pt presents supine in bed. Agreeable for therapy PT Daily Recommendations PT IRF Daily Recommendations CGA for transfers and walking with FWW. Community Level 0 Therapeutic Activity Therapeutic Activity Time Entry 25 Therapeutic Activity 1 Pt does not have pants on. Moves to EOB with SBA, and performs sitting/standing balance to doff briefs, re-don new briefs and pants with Meng to thread LLE through pant leg Therapeutic Activity 2 Pt moves to bathroom with FWW, uses toilet with distant supervision and performs own kim care with supervision Therapeutic Activity 3 Washes hands at sink with SBA and FWW Gait Training Gait Training Time Entry 20 Gait Training Activity 1 Gait with FWW to gym with SBA x150' Gait Training Activity 2 Gait on unit without device x250' with CGA. Pt tending to lean forward andfestinate, though improving Gait Training Activity 3 Amb with 4ww x450' and SBA. Again, having some trouble keeping walker close and maintaining upright posture, but improved from last week Gait Training Activity 4 Amb x350' with FWW and SBA, 150' back to room with SBA * Shira Ruiz, OT - 09/04/2022 9:45 AM PDT Treatment Note 09/04/22 0945 OT Last Visit OT Diagnosis Kendall Lopez is an 82 year-old RHD male with history of HTN, HLD, T1DM, RA on immunosuppression who presented to an OSH with AMS/aphasia, found to have acute left basal ganglia and thalamus infarcts, subacute right centrum semioval and old right frontal infarcts with etiology 2/2 ath erosclerotic disease. OT Consideration Type 1 Diabetes, insulin dep; Decreased memory, visual percpetual impairments, decinsight into safety, bed alarm Therapy Minutes (IP Rehab Only) Family/Caregiver Present Yes (Spouse) OT Treatment START Time 944 Treatment End Time 1030 OT Individual 45 OT Daily Recommendations OT Daily Recommendations Showers MWF, toileting with min A to toilet, ambulating with FWW and CGA-min A Subjective Patient Report/Self-Assessment patient alert and agreeable to OT [employer] Is an child and adolescent psychologist used? No Self-Care/Home Management Time Entry (min) 30 Minutes ADL Comments Patient set-up with adapted equipment for increased indepenence with dressing including shoe horn, sock aide, dressing stick, grapple yarder operator, and elastic shoelaces. OT providing demonstration and orientation to equipment, patient then trialing with success. Further training required to ensurecarry over of techniques. Transfers Sit<>Stand Contact guard assist (touching/steadying assistance) Sit <> Stand Comments FWW Functional Mobility Distance room <> therapy gym Assistance Needs Contact guard assist (touching/steadying assistance) Functional Mobility Assistive Device Details Front wheeled walker Functional Mobility Comments S/O providing assist, OT providing education regarding technique Therapeutic Exercise Therapeutic Exercise Time Entry 15 Therapeutic Exercise Activity 1 Patient seated at table in therapy gym, educated on exercise program and purpose. Patient engaging in gravity minimized exercises for B UE strengthening and ROM, as follows: -B shoulder forward flexion -B shoulder abduction -B shoulder external/internal rotation -circumduction Patient will benefit from continued education to ensure understanding. OT Activities Total time minutes Total Exercise/Activity Time Rows 45 Pt was left in chair at bedside with call light in reach, spouse present. GABRIELLA Ghotra, OTR/L * Manjula Adamson, ISIDORO - 09/03/2022 4:14 PM PDT 09/03/22 1345 OT Last Visit OT Diagnosis Kendall Lopez is an 82 year-old RHD male with history of HTN, HLD, T1DM, RA on immunosuppression who presented to an OSH with AMS/aphasia, found to have acute left basal ganglia and thalamus infarcts, subacute right centrum semioval and old right frontal infarcts with etiology 2/2 ath erosclerotic disease. OT Consideration Type 1 Diabetes, insulin dep; Decreased memory, visual percpetual impairments, decinsight into safety, bed alarm Therapy Minutes (IP Rehab Only) Family/Caregiver Present Yes (SO) OT Treatment START Time 1345 Treatment End Time 1430 OT Individual 45 OT Daily Recommendations OT Daily Recommendations Showers MWF, toileting with min A to toilet, ambulating with FWW and CGA-min A Subjective Patient Report/Self-Assessment Pt agreeable to shower [employer] Is an child and adolescent psychologist used? No Self-Care/Home Management Time Entry (min) 45 Minutes Upper Body Dressing Supervision / Stand by assistance UE Dressing Comments to don/doff button up shirt seated, extra time for buttons Lower Body Dressing Minimum Assist (less than 25% help needed) LE Dressing Comments SO assisting minimally to thread BLEs into brief and shorts. Pt does not have grapple yarder operator but would benefit from trialing to increase independence with task. Putting on/taking off footwear Maximum Assist (between 50-74% help needed) Putting on/taking off footwear Comment To doff shoes and don socks d/t time constraints Toileting Contact guard assist (touching/steadying assistance) Toileting Comments To standard toilet; pt requesting toileting at end of session, PCT arriving to assist with back to bed Bathing Contact guard assist (touching/steadying assistance) Bathing Comments Seated on TTB, cues for thoroughness and CGA for brief stand. SO educated on recommendation for direct supervision during shower and CGA for brief standing, provide cues to complete shower from seated as much as possible. Transfers Sit<>Stand Contact guard assist (touching/steadying assistance) Sit <> Stand Comments FWW Toilet Transfer Contact guard assist (touching/steadying assistance) Toilet Transfers Comments FWW Shower Transfer Contact guard assist (touching/steadying assistance) Shower Transfers Comments with FWW Functional Mobility Distance in room mobility Assistance Needs Contact guard assist (touching/steadying assistance) Functional Mobility Assistive Device Details Front wheeled walker OT Activities Total time minutes Total Exercise/Activity Time Rows 45 Pt left in care of PCT at EOS. * Shira Ruiz, OT - 09/03/2022 3:29 PM PDT Occupational Therapy Progress Note Patient Name: Kendall Lopez Preferred name: Kendall Lopez Today's Date: 09/03/2022 General Visit Information OT Diagnosis: Kendall Lopez is an 82 year-old RHD male with history of HTN, HLD, T1DM, RA on immunosuppression who presented to an OSH with AMS/aphasia, found to have 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 OT Consideration: Type 1 Diabetes, insulin dep; Decreased memory, visual percpetual impairments, dec insight into safety, bed alarm Encounter Diagnoses Name Primary? Cerebrovascular accident (CVA) of left basal ganglia (HCC) Yes Acute cerebral infarction (HCC) No past medical history on file. No past surgical history on file. Time Intensity Document Type: Progress Family/Caregiver Present: No OT Treatment START Time: 1000 Treatment End Time: 1030 OT Individual: 30 Missed Therapy Session Reason: Other (Comment) (toileting) [employer] Is an child and adolescent psychologist used?: No Subjective Patient Report/Self-Assessment: patient alert and agreeable to OT Patient Stated Goal: none stated, but agreeable to shower today Home Living & Prior function Home Living Type of Home: Multilevel home Entry Stairs: 3 KAREN Indoor Stairs: 1 FOS Lives With: Spouse Assistance Available at Home : 24 hour assistance Bathroom Shower/Tub: Walk-in shower Bathroom Toilet: Standard Mobility Equipment Owned: Four wheeled walker or rollator Durable Medical Equipment Owned: Shower chair with back Prior Function BADLs: Requires assist (since stroke in June) IADLs: Independent (prior to stroke in June per pt report; unable to elaborate on whether he needed any assistance with ADLs/iADLs since prior stroke in June) Functional Mobility: Independent 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 Leisure and Hobbies: photography, bird watching Responsibilities: Driving Skin/Integumentary Skin/Integumentary Skin/Integumentary: Grossly intact, IV to B forearms Edema Edema Edema: Within Functional Limits Extremity Assessments RUE Assessment RUE Assessment: Exceptions to WFL RUE Assessment Comments: baseline limitations from arthritis; wrist limited to neutral d/t arthritis; ROM grossly WFL, limited in shoulder flexion to roughly 140 deg RUE Strength R Shoulder Flexion: 3-/5 R Shoulder Extension: 3+/5 R Elbow Flexion: 4-/5 R Elbow Extension: 4-/5 RUE Tone RUE Assessment Comments: baseline limitations from arthritis; wrist limited to neutral d/t arthritis; ROM grossly WFL, limited in shoulder flexion to roughly 140 deg Right Hand Assessment Right Hand Assessment: Exceptions to WFL LUE Assessment LUE Assessment: Exceptions to WFL LUE Strength L Shoulder Flexion: 3-/5 L Shoulder Extension: 3+/5 L Elbow Flexion: 3+/5 L Elbow Extension: 3+/5 Hand Function Right Special Education Coordinator Strength: 28.6 Left Special Education Coordinator Strength: 25 RLE Assessment RLE Assessment: Exceptions to WFL (see PT note for details) LLE Assessment LLE Assessment: Exceptions to WFL (see PT note for details) Coordination Coordination Movements are Fluid and Coordinated: No Upper Extremities: Finger to Nose, Rapid alternating movement, Sequential finger opposition, 9 HolePeg test, Box and Blocks Finger to Nose- Right: Within Functional Limits Finger to Nose- Left: Within Functional Limits Upper Extremities TONG- Right: Impaired Upper Extremities TONG- Left: Impaired Sequential finger opposition- Right: Impaired Sequential finger opposition- Left: Impaired Upper Extremities 9 Hole Peg Test right (seconds): 45 Seconds Upper Extremities 9 Hole Peg Test left (seconds): 48 Seconds Upper Extremities Box and Blocks right: 30 Upper Extremities Box and Blocks left: 32 Coordination and Movement Description: Baseline deficits from arthritis however reports noted increase in difficulty Sensation Sensation Sensation comments: patient reports numbness/tingling throughout all extremities however appears torespond appropriately to tactile stimulation consistently Proprioception Proprioception Right upper extremity: Intact Left upper extremity: Intact Vision Vision Vision Comments: Patient wears glasses, denies changes in vision however may benefit from vision screen Perception Perception Inattention/Neglect: Cues to attend right visual field, Cues to attend left visual field Initiation: Appears intact Motor Planning: Appears intact Perseveration: Not present Cognition Cognition Overall Cognitive Status: Impaired Arousal/Alertness: Delayed responses to stimuli Orientation Level: Oriented to person, Disoriented to time Following Commands: Follows one step commands with repetition Communication : Patient communicating verbally Safety Judgment: Decreased awareness of need for safety, Decreased awareness of need for assistance Awareness of Errors: Decreased awareness of errors Deficits: Decreased awareness of deficits Attention Span: Difficulty attending to directions, Difficulty dividing attention Memory: Decreased short term memory, Decreased recall of recent events Problem Solving: Assistance required to identify errors made, Assistance required to generate solutions Executive Functions: Decreased insight into deficits Self-Care/Home Management Time Entry (min): 10 Minutes Eating: Supervision / Stand by assistance Eating Comments: 1:1 feed per [employer] recommendations Grooming: Supervision / Stand by assistance Grooming Comments: Standing at sink to wash hands Oral Hygiene: Contact guard assist (touching/steadying assistance) Oral Hygiene Comments: standing at sink; Needs set up and visual cue Upper Body Dressing: Minimum Assist (less than 25% help needed) UE Dressing Comments: seated on shower bench to doff and don shirt Lower Body Dressing: Minimum Assist (less than 25% help needed) LE Dressing Comments: difficulty reaching feet; Would benefit from grapple yarder operator trial Putting on/taking off footwear: Maximum Assist (between 50-74% help needed) Putting on/taking off footwear Comment: to don shoes Toileting: Contact guard assist (touching/steadying assistance) Toileting Comments: To standard toilet, using GB for sit<>stand, seated to urinate. Cues for safety awareness and positioning for clothing management, FWW placement. Bathing: Minimum Assist (less than 25% help needed) Bathing Comments: cues to sequence task effectively; needs assist to reach feet and to progress through steps Money Management: Bill pay: attempted scanning activity using simulated bills. pt needs moderate cueing to locate date, bill amounts. Pt is currently max A/dep for money management tasks. Balance Static Sitting Level of Assistance: Supervision / Stand by assistance Static Sitting Balance Comment: seated EOB Dynamic Sitting Balance Level of Assistance: Contact guard assist (touching/steadying assistance) Dynamic Sitting Balance Comment: seated EOB Static Standing Balance Level of Assistance: Contact guard assist (touching/steadying assistance) Static Standing Balance Comment: FWW Dynamic Standing Balance Level of Assistance : Minimum Assist (less than 25% help needed) Dynamic Standing-Comment: FWW Mobility Rolling Left: Supervision / Stand by assistance Rolling Right: Supervision / Stand by assistance Supine>Sit: Supervision / Stand by assistance Sit>Supine: Supervision / Stand by assistance Scooting: Supervision / Stand by assistance Sit<>Stand: Contact guard assist (touching/steadying assistance) Sit <> Stand Comments: FWW Toilet Transfer: Contact guard assist (touching/steadying assistance) Toilet Transfers Comments: FWW Shower Transfer: Contact guard assist (touching/steadying assistance) Shower Transfers Comments: with FWW Distance: room <> therapy gym Assistance Needs: Contact guard assist (touching/steadying assistance) Functional Mobility Assistive Device Details: Front wheeled walker Functional Mobility Comments: cues for upright posture Activity Tolerance Activity Tolerance Endurance: Tolerates 30 min of activity with multiple rests Assistive Technology Assistive Technology Hospital based AT needs: Other (Comment) (standard call light) Assessment OT Assessment OT Assessment Results: Impaired ADL status, Impaired functional mobility, Impaired upper extremity strength, Impaired lower extremity strength, Impaired balance, Impaired safety and/or judgement during ADL's, Impaired cognition, Decreased endurance/activity tolerated, Impaired sensation, Impaired fine motor coordination, Impaired gross motor coordination, Impaired IADL's Impact on Function and Participation: This week, Kendall has been working towards goals of increasing independence with ADL and IADL tasks. Kendall has made progress towards these goals, however continues to require assist with ADLs, IADLs, and functional mobility. At this time, Kendall will continue to benefit from daily intensive occupational therapy to address deficits affecting participation and independence in ADLs, IADLs, and functional mobility. Recommending follow up with occupational therapy services after discharge and use of recommended bathroom equipment (shower seat). Functional Prognosis: Fair Evaluation/Treatment Tolerance: Patient tolerated treatment well OT Daily Recommendations: Showers MWF, toileting with mod A to toilet, ambulating with FWW and CGA-min A Plan Plan Treatment Interventions: Self-care/Home management, Caregiver education/training, Therapeutic exercise, Therapeutic activities, Neuromuscular re-education, Cognitive skills development, Manual therapy techniques, Modalities, Sensory integration OT Plan: Skilled OT OT Frequency: 1-2x/day, 5-6 days/week Estimated length of stay: 10-14 days OT Discharge Recommendations: Follow up with OT at next level of care Assistance with : ADLs, IADLs, functional mobility Supervision with : ADLs Equipment Recommended: Shower seat with back Goals: Inpatient Rehab Goals Feeding Discharge Goal Level of Assist: Independent Discharge Goal Status: Progressing Grooming STG Time Frame: 09/03 STG Level of Assist: Contact guard assist (touching/steadying assistance) STG Status: Met Discharge Goal Level of Assist: Independent Discharge Goal Status: Progressing Upper Body Dressing STG Time Frame: 09/10 STG Level of Assist: Contact guard assist (touching/steadying assistance) STG Status: Progressing Discharge Goal Level of Assist: Independent Discharge Goal Status: Progressing Lower Body Dressing STG Time Frame: 09/03 STG Level of Assist: Minimum Assist (less than 25% help needed) STG Status: Met Discharge Goal Details: from bed level Discharge Goal Level of Assist: Independent Discharge Goal Status: Progressing Bathing Discharge Goal Level of Assist: Supervision / Stand by assistance Discharge Goal Status: Progressing Toileting Discharge Goal Level of Assist: Supervision / Stand by assistance Discharge Goal Status: Progressing Toilet Transfers Discharge Goal Level of Assist: Supervision / Stand by assistance Discharge Goal Status: Progressing Tub/Shower Transfers Discharge Goal Level of Assist: Supervision / Stand by assistance Discharge Goal Status: Progressing Discharge Goal Time Frame Discharge goals completed by: 10-14 days Shira Ruiz OTD 09/03/2022 * Lida Storm, STRAIGHT CUTTER - 09/03/2022 3:21 PM PDT Speech Language Pathology Treatment Patient Name: Kendall Lopez Today's Date: 09/03/2022 Subjective Patient Report/Self-Assessment: Pt seen in therapy room with . 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 No past surgical history on file. General Visit Information [employer] Last Visit [employer] Received On: 09/03/22 [employer] Document Type: Progress [employer] Total Treatement Time in Minutes: 25 Minutes Visual Acuity: Corrective lenses Auditory Acuity: Functional in conversation Family/Caregiver Present: Yes Family/Caregiver Comments: Prior Function Prior Function: Pt reports he lives in [place] with his . Neurology note states: right frontal infarct in the MCA/AYLIN territory in June. Unclear whether pt had residual cognitive-communicationdeficits, plan to discuss with family when present. 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 Required mod A verbal/visual cue to ID hospital, [facility] [place]. -People: pt required total A verbal/visual cue to ID PT, however then i'ly recalled activities after seeing picture. Required mod A visual/verbal to ID OT, however then i'ly recalled activities afterseeing picture. 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 VERBAL EXPRESSION -Introduction to semantic feature analysis (SFA) for word finding. -When provided with an item (concrete, 3 trials, 3 exemplars each) pt required mod-max A verbal/visual cueing to generate characteristics of each item e.g., size, color, shape, etc. -I'ly generated carrot when provided with 5 characteristics of item (color, shape, size, locationit grows, vegetable). EDUCATION -Provided pt and with handout re: cognitive sequale post CVA. Assessment/Plan Swallow Recommendations Diet Recommendations: Regular;0-Thin liquids Medication Administration Recommendations: Meds as tolerated Oral care: Frequency: 2-3x per day Aspiration Precautions: As upright as medically possible for all oral intake;Fully alert for all POintake;One sip at a time;Cut up/set up Cognitive Communication Recommendations : Allow patient breaks as needed;Follow consistent routine as able;Reduce external stimuli (TV, smart phone, electronic devices, number of visitors) Communication Recommendations: Allow automatic function as able;Make sure you have patient's attention before speaking to them;Keep verbal input short, simple, direct;Give patient extra time to respond and speak;Try asking simple yes/no questions I have reviewed the documentation of this visit and I confirm that I was present for the entire session and not engaged in other tasks. I directed / guided the services and am responsible for the assessment and treatment of this patient in this visit. 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 No Subjective Patient Report/Self-Assessment Pt agreeable to PT. Does report some low bqack pain during session if asked (pt noted to have occasional wincing with mvmt during session), however, pain not interfering with session. Activity Tolerance / Endurance Activity Tolerance /Endurance Tolerates 30 min of activity with multiple rests Therapeutic Exercise Therapeutic Exercise Time Entry 13 Therapeutic Exercise Activity 1 Standing BLE therex in // bars 2x10 w/ focus on eccentric control in RLE: hip flexion, hip abd, hip ext, squats w/o UE supoprt (completed squats w/ CG). Occasional seated rest breaks between ex's. Therapeutic Activity Therapeutic Activity Time Entry 10 Therapeutic Activity 1 Mult reps sit <-> st S w/ FWW, CG w/o AD. Therapeutic Activity 2 Stand step turn mult reps - initially requiring CG w/ FWW as pt initiating sit prior to fully turining to chair and w/o turning FWW with him. W/ repeated practice/cues, able tocomplete w/ S, however, will need to cont to re-assess carry-over. Therapeutic Activity 3 Sup to sit S Gait Training Gait Training Time Entry 22 Gait Training Activity 1 Gait training w/ FWW 300' x1, 200' x1 w/ S. Gait Training Activity 2 Gait training w/o AD CG-occasional min A (d/t ant bias of upper body as compared to LEs) - 200' x1, 150' x1 - trialed metronome 2nd trial to see if this improved symmetry of stepping as pt w/ dec R step length and lack of heel strike. W/ metronone (78-84 bpm) and max cues, able to inconsistently improve step symmetry. Gait Training Activity 3 Gait w/o AD while stepping over cuff weights on floor w/ RLE for focus on inc step length and achieving heel strike, with final bout of gait w/ FWW following this and inc cues verbal/tactile for inc R step length - pt able to carry-over inconsistently. Pt left sitting EOB w/ OT present at end of session. * Lida Storm, STRAIGHT CUTTER - 09/03/2022 11:01 AM PDT Speech Language Pathology Progress Note Patient Name: Kendall Lopez Today's Date: 09/03/2022 Subjective Patient Active Problem List Diagnosis Acute cerebral infarction (HCC) Cerebrovascular accident (CVA) of left basal ganglia (HCC) Prior Function Prior Function Prior Function: Pt reports he lives in [place] with his . Neurology note states: right frontal infarct in the MCA/AYLIN territory in June. Unclear whether pt had residual cognitive-communicationdeficits, plan to discuss with family when present. 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 He participated in cognitive communication assessments to determine goals of therapy, as well as the development and trial of external memory aids. Currently, he is sometimes requiring min-mod verbal assist to identify the date on the calendar. When c ompleting moderately complex attention tasks such as filling out his daily menu, he benefits from decreased stimuli and few written choices to promote independence and verbal initiation. Education re: stoke, cognition, and aphasia is ongoing. Given his age and subsequent strokes, Kendall has a fair prognosis for recovery, however is well supported by his family. Following discharge, Kendall will require assistance with iALDs, and it is recommended he continue speech therapy. 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 Assessment Results: Cognitive communication impairment, Aphasia Cognitive Communication Impairment: Moderate Aphasia: Mild Impact on Function: Reduced ability to recall important information, Reduced ability to follow safety precautions, Reduced ability to understand and participate in higher level conversations Prognosis: Fair Evaluation/Treatment Tolerance: Patient tolerated treatment well [employer] Plan: Skilled [employer] Treatment/Interventions: Cognitive communication treatment, Speech/language/voice treatment, Patient/family education [employer] Frequency: 5-6 days/week, 1-2x/day [employer] Discharge Recommendations: Follow up with [employer] at next level of care Swallow Recommendations Diet Recommendations: Regular, 0-Thin liquids Medication Administration Recommendations: Meds as tolerated Oral care: Frequency: 2-3x per day Aspiration Precautions: As upright as medically possible for all oral intake, Fully alert for all PO intake, One sip at a time, Cut up/set up Cognitive Communication Recommendations: Allow patient breaks as needed, Follow consistent routine as able, Reduce external stimuli (TV, smart phone, electronic devices, number of visitors) Communication Recommendations: Allow automatic function as able, Make sure you have patient's attention before speaking to them, Keep verbal input short, simple, direct, Give patient extra time to respond and speak, Try asking simple yes/no questions Goals Short Term Goal: Participate in further evaluation to determine appropriate treatment goals Estimated Completion Date: 09/03/22 Goal Status: Met Short Term Goal: Participate in development and trials of external memory aids Estimated Completion Date: 09/03/22 Goal Status: Met Short Term Goal - Education: Patient/caregiver will participate in education regarding: Dysphagia;Aphasia;Cognition;Cerebrovascular Accident Estimated Completion Date: 09/03/22 Goal Status: Progressing Discharge Goal - Education: Patient/caregiver will participate in education regarding: Dysphagia;Aphasia;Cognition;Cerebrovascular Accident Estimated Completion Date: 09/09/22 Discharge Goal: Pt will utilize compensatory strategies for memory in functional tasks with 80% accuracy Estimated Completion Date: 09/09/22 Discharge Goal: Pt will utilize word finding strategies in converstaion w min A Estimated Completion Date: 09/09/2022 I have reviewed the documentation of this visit and I confirm that I was present for the entire session and not engaged in other tasks. I directed / guided the services and am responsible for the assessment and treatment of this patient in this visit. 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 No past surgical history on file. Subjective Subjective Patient Report/Self-Assessment: Pt presents seated at EOB, agreeable to therapy Patient Stated Goal(s): To be able to get back home and to walk independently Home Living Home Living Home Living Comments: He lives in [place] Type of Home: [facility] home Entry Stairs: 3 KAREN with rails Indoor Stairs: 1 flight with rails Lives With: Spouse Assistance Available at Home : 24 hour assistance Mobility Equipment Owned: Other;Four wheeled walker or rollator (Walking stick) Prior Level of Function Prior Function Prior Level of Function : per spouse, after CVA in June was using 4ww and walking sticks, recently, pt had been amb without AD for about a week (~08/12), pt was going to outpatient PT prior to admission; not driving 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 Oriented to name and birthdate, place and situation.) Extremity Assessments Right Upper Extremity RUE Assessment RUE Assessment: Within Functional Limits Left Upper Extremity LUE Assessment LUE Assessment: Exceptions to WFL LUE ROM (degrees) L Shoulder Flexion: 120 L Shoulder Extension: NT L Shoulder ABduction: 90 L Shoulder Internal Rotation : 45 L Shoulder External Rotation: 35 L Wrist Flexion: NT L Wrist Extension: NT LUE ROM Comments: L shoulder ROM limited by pain, tight endfeel LUE Strength L Shoulder Flexion: 4/5 L Shoulder ABduction: 5/5 L Shoulder Internal Rotation: 5/5 L Shoulder External Rotation: 4/5 L Elbow Flexion: 5/5 L Elbow Extension: 3-/5 LUE Strength Comments: Strength testing limited at shoulder per pain and weakness, also not able tomove actively through full elevation ROM Right Lower Extremity RLE Assessment RLE Assessment: Exceptions to WFL ROM RLE (degrees) RLE ROM Comments: LE ROM grossly WNL RLE Strength R Hip Flexion: 5/5 R Hip Extension: 5/5 R Hip ABduction: 3+/5 R Knee Flexion: 5/5 R Knee Extension: 5/5 R Ankle Dorsiflexion: 4/5 RLE Strength Comments: LE strength screening only, hip abduction, extension needs further assessment Left Lower Extremity LLE Strength L Hip Flexion: 5/5 L Hip Extension: 4-/5 L Hip ABduction: 3+/5 L Knee Flexion: 5/5 L Knee Extension: 5/5 L Ankle Dorsiflexion: 4/5 LLE Strength Comments: LE strength screening only, hip abduction, extension needs further assessment Tone Tone Right Upper Extremity Tone: Within Functional Limits Sensation and Proprioception Sensation Light Touch: No apparent deficits Sensation Comments: He reports B feet are always partially tingly Proprioception Proprioception: Partial deficits in the LLE Proprioception Comments: R great toe WNL, L great toe less able to discern direction Coordination Coordination Coordination and Movement Description: Slow movements noted during testing but no gross coordination impairments noted with FTN, TONG at B UE and LE Perception Skin/Integumentary Skin/Integumentary: grossly WNL Vision/Vestibular/Occulomotor Vision Visual Acuity Details: Wears glasses Anthropometric Measurements Balance Static Sitting Balance Static Sitting Balance Level of Assistance: Independent Static Sitting Balance Comments: Able to sit with and without UE support Dynamic Sitting Balance Dynamic Sitting Balance Level of Assistance: Independent Static Standing Balance Static Standing Balance Level of Assistance: Supervision / Stand by assistance Static Standing Balance Comments: With FWW Dynamic Standing Balance Dynamic Standing Balance Level of Assistance: Supervision / Stand by assistance Dynamic Standing Balance Comments: During Jarrell Balance assessment Activity Tolerance Activity Tolerance / Endurance Activity Tolerance /Endurance: Tolerates 30+ min of activity without fatigue Functional Mobility Bed Mobility Rolling Left: Independent Rolling Right: Independent Supine to Sit: Independent Sit to Supine: Independent Scooting: Independent Transfers Sit<>Stand: Supervision / Stand by assistance Bed<>Chair/WC: Supervision / Stand by assistance Car Transfer: Supervision / Stand by assistance Floor Recovery: Other (Comment) (Not tested for safety reasons) Picking Up an Object: Supervision / Stand by assistance Wheelchair Activities WC Size: N/A Ambulation Distance: 450 Level of Assistance : Supervision / Stand by assistance Assistive Device Used: Front wheeled walker Gait quality/descriptors: Flexed posture;Decreased foot clearance;Decreased step length;Decreased pace 10 feet: Supervision / Stand by assistance 50 feet 2 turns: Supervision / Stand by assistance 150 feet: Supervision / Stand by assistance Uneven Terrain: Other (Comment) (Not tested for safety reasons) Stairs Number of steps: 12 Level of Assistance : Supervision / Stand by assistance Style: Reciprocal Assistive Device Used: 2 railings 4 Steps: Supervision / Stand by assistance 12 Steps: Supervision / Stand by assistance Curb Curb Assessment: Minimum Assist (less than 25% help needed) Curb Comments: Using FWW on 08/28 Outcome Measures Jarrell Balance Scale 1. Sitting to Standing: Able to stand independently using hands 2. Standing Unsupported: Able to stand safely for 2 minutes 3. Sitting with Back Unsupported but Feet Supported on Floor or on a Stool: Able to sit safely and securely for 2 minutes 4. Standing to Sitting: Sits safely with minimal use of hands 5. Transfers: Able to transfer safely definite need of hands 6. Standing Unsupported with Eyes Closed: Able to stand 10 seconds safely 7. Standing Unsupported with Feet Together: Able to place feet together independently and stand 1 minute safely 8. Reach Forward with Outstretched Arm While Standing: Can reach forward 12 cm (5 inches) 9. [employer] Object from Floor from a Standing Position: Able to pickling operator slipper safely and easily 10. Turning to Look Behind Over Left and Right Shoulders While Standing: Looks behind one side onlyother side shows less weight shift 11. Turn 360 Degrees: Able to turn 360 degrees safely but slowly 12. Place Alternate Foot on Step or Stool While Standing Unsupported: Able to complete greater than2 steps needs minimal assist 13. Standing Unsupported One Foot in Front: Able to take small step independently and hold 30 seconds 14. Standing on One Leg: Tries to lift leg unable to hold 3 seconds but remains standing independently Jarrell Balance Score: 42 Timed Up and Go Test Trial 1 - How many seconds did it take to complete the tasks?: 24.95 seconds Trial 2 - How many seconds did it take to complete the tasks?: 23.05 seconds TUG Trials Average (seconds):: 24 seconds Comment: Using FWW 30 Second Sit to Stand Number of times performed sit to stand (30 seconds): 7 using chair arms to push up 5x Sit to Stand Five time sit to stand: 20.78 Seconds 10 Meter Walk Test How many seconds did it take to complete 10 meters?: 14.93 seconds Comments:: Using FWW Treatment Therapeutic Exercise Therapeutic Exercise Time Entry: 10 Therapeutic Exercise Activity 1: NuStep x9 minutes with UEs and LEs, level 2 Therapeutic Activity Therapeutic Activity Time Entry: 35 Therapeutic Activity 1: Repeat testing for prog note including: Jarrell balance, 5x sit to stand, 30 sec sit to stand, 10mwt, stairs, car transfer, gait Assessment PT Assessment PT Impairments: Decreased strength;Decreased range of motion;Impaired balance;Decreased mobility;Decreased cognition;Impaired tone;Difficulty ambulating PT Assessment / Impact on Function: Kendall presents to rehab significantly functioning below his baseline level of independence with transfers out of bed, with walking, with household and community mobility and stair management. He has made ample progress this week with regards to all of his mobility, demonstrating improved bed mobility, transfers, gait, and stairs. He continues to be best served by a front-wheeled walker, and anticipate that he will likely DC with this type of equipmentl. He is on track to reach his DC goals, and remains appropriate for [facility] level care. Prognosis: Good Barriers to Discharge: Stairs into his home PT IRF Daily Recommendations: Meng for transfers and walking with FWW. Community Level 0 Plan Plan Treatment/Interventions: Therapeutic exercise;Therapeutic functional activities;Neuromuscular re-education;Gait/Stairs training;Patient/family training;Equipment eval/education PT Dosage: 1-2x/day, 5-6 days/week Recommended Length of Stay: 10 days PT Discharge Recommendations: Outpatient PT PT Assistance Recommendations: Mobility Goals Bed Mobility Goal Details: Independent supine to sit STG Estimated Completion Date: 09/02/22 STG Status: Met Goal Details: Independent bed mobility LTG Time Frame: By discharge Discharge Goal Status: Met Transfers Goal Details: SBA sit to stand with AD as needed STG Estimated Completion Date: 09/02/22 STG Status: Met Goal Details: Independent sit to stand with LRAD LTG Time Frame: By discharge Discharge Goal Status: Progressing Indoor Ambulation Goal Details: Able to walk 150 feet with LRAD and CGA STG Estimated Completion Date: 09/02/22 STG Status: Met Goal Details: Independent household mobility with LRAD LTG Time Frame: By discharge Discharge Goal Status: Progressing Outdoor Ambulation Goal Details: Able to negotiate a ramp and basic non-level terrain with LRAD and CGA STG Estimated Completion Date: 09/02/22 STG Status: Progressing Goal Details: Able to negotiate a ramp and basic non-level terrain with LRAD and SBA LTG Time Frame: By discharge Stairs Goal Details: Able to negotiate up and down 12 steps with one rail with SBA LTG Time Frame: By discharge Discharge Goal Status: Progressing Floor Recovery Goal Details: Able to manage floor recovery with a transitional surface and SBA LTG Time Frame: By discharge Discharge Goal Status: Progressing Bryant Guerrero, PT 09/03/2022 * Shira Ruiz, OT - 09/03/2022 10:00 AM PDT Treatment Note 09/03/22 1000 OT Last Visit OT Diagnosis Kendall Lopez is an 82 year-old RHD male with history of HTN, HLD, T1DM, RA on immunosuppression who presented to an OSH with AMS/aphasia, found to have acute left basal ganglia and thalamus infarcts, subacute right centrum semioval and old right frontal infarcts with etiology 2/2 ath erosclerotic disease. OT Consideration Type 1 Diabetes, insulin dep; Decreased memory, visual percpetual impairments, decinsight into safety, bed alarm Therapy Minutes (IP Rehab Only) Family/Caregiver Present No OT Treatment START Time 1000 Treatment End Time 1030 OT Individual 30 Missed Therapy Session Reason Other (Comment) (patient requiring time to eat breakfast, prioritized d/t DM1) OT Daily Recommendations OT Daily Recommendations Showers MWF, toileting with min A to toilet, ambulating with FWW and CGA-min A Subjective Patient Report/Self-Assessment patient alert and agreeable to OT [employer] Is an child and adolescent psychologist used? No Self-Care/Home Management Time Entry (min) 10 Minutes Transfers Sit<>Stand Contact guard assist (touching/steadying assistance) Sit <> Stand Comments FWW Functional Mobility Distance room <> therapy gym Assistance Needs Contact guard assist (touching/steadying assistance) Functional Mobility Assistive Device Details Front wheeled walker Functional Mobility Comments cues for upright posture Therapeutic Activity Therapeutic Activity Time Entry 20 Therapeutic Activity 1 Visual scanning/perception: patient seated at table in therapy gym, asked toreplicate design from card onto wooden pegboard. Patient using B hands to place pegs and requiring increased time. Patient then completing moderate card, with increased time and errors however patient able to correct over time. OT Activities Total time minutes Total Exercise/Activity Time Rows 30 Pt was left in bed with call light in reach, bed alarm on. GABRIELLA Ghotra, OTR/L * Paul Stanford MD - 09/03/2022 8:55 AM PDT Rehabilitation Medicine Progress Note Kendall Lopez (Kendall) - : 1940 (82 year old male) Preferred Pronouns: he/him/his PCP: Cici Jones MD Code Status: Full Code CHIEF CONCERN / IDENTIFICATION: Kendall Lopez is an 82 year-old RHD male with history of HTN, HLD, T1DM, RA on immunosuppression who presented to an OSH with AMS/aphasia, found to have 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 SUBJECTIVE Feels well. Did have espisode overnight of possible sundowning in which he thought Ray Paul waspresident noted by RN (re-directable), which has cleared this AM. MEDICATIONS: Scheduled medications: aspirin, 325 mg, Oral, Daily heparin, 5,000 units, Subcutaneous, q12h ASTRID hydroxychloroquine, 200 mg, Oral, BID insulin GLARGINE, 16 units, Subcutaneous, q AM insulin LISPRO, 0-4 units, Subcutaneous, q HS insulin LISPRO, 0-5 units, Subcutaneous, TID before meals insulin LISPRO, 0-8 units, Subcutaneous, q24h insulin LISPRO, , Subcutaneous, TID before meals rosuvastatin, 5 mg, Oral, Daily senna, 17.6 mg, Oral, BID sulfaSALAzine, 1,000 mg, Oral, BID PRN medications: PRN medications: acetaminophen, dextrose, dextrose, glucagon, glucagon, ipratropium-albuterol, labetalol, melatonin, ondansetron, zinc oxide OBJECTIVE T: 36.4 ??C (08/27/222037) BP: 116/84 (08/27/222037) HR: 80 (08/27/222037) RR: 16 (08/27/222037) SpO2: 95 % (08/27/222037) Room air Vitals (Most recent in last 24 hrs) T: 37.1 ??C (09/03/22807) BP: 125/66 (09/03/22807) HR: 85 (09/03/22807) RR: 16 (09/03/22807) SpO2: 97 % (09/02/221999) Room air T range: Temp Min: 36.6 ??C Max: 37.1 ??C Wt 153 lb (69.4 kg) Ht 5' 11 (1.803 m) Body mass index is 21.34 kg/m??. Physical Exam: General: no acute distress, resting comfortably HEENT: normocephalic Cadiac: extremities warm and well perfused Pulmonary: nonlabored breathing on room air Abdomen: nondistended Neuro: alert and awake Aox2-3 name okay, knew hospital, but thought [place], guessed [facility] [place] . Knew year, thought it was August 06 Able to name simple objects LABS: Labs (last 24 hours): Chemistries CBC LFT Gases, other - - - 116 - AST: - ALT: - -/-/-/- -/-/-/- - - - - >< - AP: - T bili: - Lact (a): - Lact (v): - eGFR: - Ca: - - Prot: - Alb: - Trop I: - D-dimer: - Mg: - PO4: - ANC: - BNP: - Anti-Xa: - ALC: - INR: - ADDITIONAL RESULTS/IMAGING: MICRO: I have personally reviewed the latest Micro results and cultures IMAGING: I have reviewed the latest radiology results PATHOLOGY: I have reviewed the latest pathology results ASSESSMENT/PLAN Kendall Lopez is an 82 year-old RHD male with history of HTN, HLD, T1DM, RA on immunosuppression who presented to an OSH with AMS/aphasia, found to have 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 Now medically stable and admitted to [facility] on 08/27/22 for intensive PT, OT, speech therapy. 09/03 - Sugars good last 24 hours - Continent B/B - No changes to medical plan #Rehabilitation plan for ischemic infarct - Continue comprehensive inpatient rehabilitation care including medicine, nursing, physical therapy, occupational therapy, speech therapy, recreational therapy and rehabilitation psychology. Memory Memory is challenge especially antegrade Speech therapy recs: Reinforced introduction to memory book. While referencing calendar, pt ID date, day, mo, yr. Speech Word-finding expressive aphasia noted Agitation None currently Pain No concerns at this time Sleep No concerns at this time 8. Bowel/Bladder a. No concerns at this time 9. Nutrition a. No concerns at this time. Full diet 10. Decreased mood a. No SI/HI - rehab psych becoming involved 11. Mobility a. CGA with all transfers, ambulating 200 ft with no AD Meng 12. Cognitive a. 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 History of old right frontalinfarct, subacute right centrum semioval infarct. Acute/subacute ischemic infarcts in bilateral hemispheres in multiple territories with unknown etiology, currently undergoing extensive workup for feng rce. TTE was negative for atrial mass, which was initial suspicion for a cardioembolic source. Blood cx NGTD and no s/sx of infection, making infective endocarditis very unlikely currently. MRI [facility] had findings most consistent with atherosclerotic changes, with no evidence of vasculitis or other inflammatory process, r/o RA vasculitis. APS labs negative. CT C/A/P overall unremarkable, x1 5mm indeterminate lung nodule and calcified granulomas. Repeat TCD negative. Will work to obtain OSHecho images to ensure there was no prior mass seen. Continue neuro checks with VS monitoring. Continue goals for normotension, normothermia, eunatremia- goal 135-145, and euglycemia: BG <180. The pt remains on ASA 325mg daily and DVT ppx - SQH [id number]. 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 Seems mostly good control at home. Will cont to monitor BGcontrol on current regimen. Appreciate endocrinology recs/assistance as needed. - glargine 18u qam --> 16u starting 09/03 - nutritional insulin 1u:10 carbs - LDSSI w/ meals + qhs - Consult to glycemic control given elevations today and to simplify regimen given cog deficits. 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 Cardiology not concerned and no s/sx of hemodynamic compromise or tamponade.Plan for further monitor outpatient w/ his rn trauma. - outpatient cardiology f/u and eval #ARNAV - Unclear baseline sCr - though prior Cr 1.1 a year ago. Cr 1.32 on admission, now 1.15 on 02/27/22. #HLD - rosuvastatin 5mg #Rheumatoid Arthritis Patient does not endorse any arthritic pain or flare-up episode. To maintain optimal immunosuppression, restarted home RA meds. - continue sulfasalazine and hydroxychloroquine #Asthma, stable - uses fluticasone/salmetrol at home - duoneb prn ordered Inpatient Checklist: Fluids/Electrolytes/Nutrition: Diabetic diet Prophylaxis: SQH q12h Lines/Drains/Airways: pIV Disposition: Neurology acute care Code Status: FULL Contacts: Liyah Lopez - - [phone] GENERAL HEALTH MANAGEMENT Diet: Adult Diet Regular; Carbohydrate managed Bowel Status: Spontaneous, continent Bladder Status: Spontaneous, continent DVT Prophylaxis: SubQ hep Estimated Length of Stay: 10-14 Discharge Location: Home ANTICIPATED FOLLOW-UP AFTER DISCHARGE Rehab Medicine within 1 month after discharge Primary Care Physician within 1 weeks after discharge Therapies: To be determined On discharge, the patient will need the following follow up: - endocrinology - PCP - stroke clinic - cardiology to follow up the cardiac event monitor Associated attestation - Souleymane Park DO - 09/03/2022 5:14 PM PDT Date of Service: 09/03/22 I saw and evaluated the patient. I have reviewed the resident(s)'s/fellow(s)'s documentation and agree. * Manjula Adamson, OT - 09/02/2022 4:31 PM PDT 09/02/22 1045 OT Last Visit OT Diagnosis Kendall Lopez is an 82 year-old RHD male with history of HTN, HLD, T1DM, RA on immunosuppression who presented to an OSH with AMS/aphasia, found to have acute left basal ganglia and thalamus infarcts, subacute right centrum semioval and old right frontal infarcts with etiology 2/2 ath erosclerotic disease. OT Consideration Decreased memory, visual percpetual impairments, dec insight into safety, bed alarm Therapy Minutes (IP Rehab Only) Family/Caregiver Present Yes (SO and pr's dtr) OT Treatment START Time 1515 Treatment End Time 1600 OT Individual 45 OT Daily Recommendations OT Daily Recommendations Showers MWF, toileting with min A to toilet, ambulating with FWW and CGA-min A Subjective Patient Report/Self-Assessment pt agreeable to OT session [employer] Is an child and adolescent psychologist used? No Self-Care/Home Management Time Entry (min) 15 Minutes Grooming Supervision / Stand by assistance Grooming Comments Standing at sink to wash hands Toileting Contact guard assist (touching/steadying assistance) Toileting Comments To standard toilet, using GB for sit<>stand, seated to urinate. Cues for safety awareness and positioning for clothing management, FWW placement. Functional Mobility Distance room <> gym Assistance Needs Contact guard assist (touching/steadying assistance) Functional Mobility Comments FWW; CGA-supervision Therapeutic Activity Therapeutic Activity Time Entry 30 Therapeutic Activity 1 Functional mobility room <> gym with FWW and CGA with intermittent supervision; mod cues to attend to R environment Therapeutic Activity 2 Completed circuit board project; oriented to diagram and pieces. During assembly, pt keeps track of progress by maintaining finger on picture. Needs min cues to correct errors and assist to locate 2 pieces in box. Overall fair organization during activity and needs extra timefor processing. Pt with greater difficulty completing task when engaged in conversation with therapist. Therapeutic Activity 3 Engaged in novel card game, instructed on rules of gameplay. Pt demo's good understanding and recall of card values, pt's family intermittently providing general cues for strategy unprompted. OT Activities Total time minutes Total Exercise/Activity Time Rows 45 Pt left in bed, family at bedside, needs met. * Lida Storm, STRAIGHT CUTTER - 09/02/2022 3:43 PM PDT Speech Language Pathology Treatment Patient Name: Kendall Lopez Today's Date: 09/02/2022 Subjective Patient Report/Self-Assessment: Pt seen in therapy room. joined for last third of session. 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 No past surgical history on file. General Visit Information [employer] Last Visit [employer] Received On: 09/02/22 [employer] Document Type: Progress [employer] Total Treatement Time in Minutes: 45 Minutes Visual Acuity: Corrective lenses Auditory Acuity: Functional in conversation Family/Caregiver Present: Yes Family/Caregiver Comments: Prior Function Prior Function: Pt reports he lives in [place] with his . Neurology note states: right frontal infarct in the MCA/AYLIN territory in June. Unclear whether pt had residual cognitive-communicationdeficits, plan to discuss with family when present. 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 Required mod verbal/visual cues to ID date, month. - Pt recalled safety recommendation of not getting out bed. Required mod-max verbal cue to recall need to call RN, and risk for falling. VERBAL EXPRESSION -Completed daily menu with mod-max A verbal/visual cues. Noted increase of processing speed and initiation of verbal output with reduced cognitive load e.g removing menu, providing 3-4 written choices, asking simple questions. Pt unable to generate menu item when asked open ended questions, what would you like for lunch? What would you like to drink? Assessment/Plan Swallow Recommendations Diet Recommendations: Regular;0-Thin liquids Medication Administration Recommendations: Meds as tolerated Oral care: Frequency: 2-3x per day Aspiration Precautions: As upright as medically possible for all oral intake;Fully alert for all POintake;One sip at a time;Cut up/set up Cognitive Communication Recommendations : Allow patient breaks as needed;Follow consistent routine as able;Reduce external stimuli (TV, smart phone, electronic devices, number of visitors) Communication Recommendations: Allow automatic function as able;Make sure you have patient's attention before speaking to them;Keep verbal input short, simple, direct;Give patient extra time to respond and speak;Try asking simple yes/no questions Associated attestation - Jewels Renae CCC-SLP - 09/02/2022 3:57 PM PDT IJewels CCC-[employer] , have reviewed the documentation of this visit and I confirm that I was present for the entire session and not engaged in other tasks. I directed/guided the services and am responsible for the assessment and treatment of this patient in this visit. * Manjula Adamson, OT - 09/02/2022 2:29 PM PDT 09/02/22 1300 OT Last Visit OT Diagnosis Kendall Lopez is an 82 year-old RHD male with history of HTN, HLD, T1DM, RA on immunosuppression who presented to an OSH with AMS/aphasia, found to have acute left basal ganglia and thalamus infarcts, subacute right centrum semioval and old right frontal infarcts with etiology 2/2 ath erosclerotic disease. OT Consideration Decreased memory, visual percpetual impairments, dec insight into safety, bed alarm Therapy Minutes (IP Rehab Only) Family/Caregiver Present Yes (SO and pt's dtr) OT Treatment START Time 1300 Treatment End Time 1345 OT Individual 45 OT Daily Recommendations OT Daily Recommendations Showers MWF, toileting with min A to toilet, ambulating with FWW and CGA-min A Subjective Patient Report/Self-Assessment Pt agreeable to OT session [employer] Is an child and adolescent psychologist used? No Functional Mobility Distance room <> gym Assistance Needs Contact guard assist (touching/steadying assistance) Functional Mobility Comments FWW Therapeutic Activity Therapeutic Activity Time Entry 45 Therapeutic Activity 1 Functional mobility room <> gym with CGA and FWW; bumps into objects on R x 2 Therapeutic Activity 2 Engaged in tabletop activities to address visual spatial skills, attention, scanning and problem solving. Pt completing visual dexterity puzzle Qbitz, simple and slightly complex patterns. Requires extra time to problem solve orientation of pieces for complex puzzle with general cues. Pt completed Kanoodle puzzles Level 2 x 1, Level 3 x 2 and attempted Level 4 puzzle. Unable to complete d/t time constraints however pt with good sustained attention to task and observed to trial multiple positions for pieces. Therapeutic Activity 3 Discussed home bathroom set up with pt's SO - reports walk-in shower, HHSH and owns a shower stool. SO plans on purchasing a new shower chair with backrest. Will plan to further discuss with pt's primary OT to inform DME and assist/supervision recommendations at subsequent sessions. OT Activities Total time minutes Total Exercise/Activity Time Rows 45 Pt left in bed, family at bedside, needs met. 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 No Subjective Patient Report/Self-Assessment Pt agrees to therapy. Reports fatigue with therapy activities but agrees to continue with rest breaks. Bed Mobility Supine to Sit Supervision / Stand by assistance Sit to Supine Supervision / Stand by assistance Transfers Sit<>Stand Contact guard assist (touching/steadying assistance) Bed<>Chair/WC Contact guard assist (touching/steadying assistance) Car Transfer Contact guard assist (touching/steadying assistance);Assistive device used Car Transfer Assistive Device Details Front wheeled walker Floor Recovery Minimum Assist (less than 25% help needed);Other (Comment) (with use of intermediate surface) Ambulation Distance 200 feet Level of Assistance Contact guard assist (touching/steadying assistance) (min A with no AD) Assistive Device Used Front wheeled walker Gait quality/descriptors Flexed posture;Decreased foot clearance;Decreased step length;Decreased pace Uneven Terrain Contact guard assist (touching/steadying assistance) (with FWW) Stairs Number of steps 4 x 3 Level of Assistance Contact guard assist (touching/steadying assistance) Style Reciprocal Assistive Device Used 2 railings Curb Curb Assessment Contact guard assist (touching/steadying assistance) Curb Comments with FWW PT Daily Recommendations PT IRF Daily Recommendations Level 0. Bed mob: SBA. Transfers: CGA. Gait: CGA with FWW or 4WW. Therapeutic Activity Therapeutic Activity Time Entry 15 Therapeutic Activity 1 Supine<>sit with SBA. Therapeutic Activity 2 Sit<>stand transfers throughout session with no AD v. FWW and CGA, occasionally more than one attempt due to retropulsion. Cues for hand placement. Therapeutic Activity 3 Car transfer with FWW and CGA. Therapeutic Activity 4 Floor transfer with min A and use of intermediate surface, extra time, min verbal cues. Gait Training Gait Training Time Entry 30 Gait Training Activity 1 Pt ambulated 150 feet x 2, 100 feet x 2 with FWW with SBA-CGA. Gait Training Activity 2 Pt ambulated 140 feet with no AD and CGA-min A. Gait Training Activity 3 Up/down 4 steps x 3 with B railings, reciprocal pattern, and CGA. Gait Training Activity 4 Up/down curb x 2 with FWW and CGA. Gait Training Activity 5 Pt ambulated over uneven surface 15 feet with FWW and CGA. * Paul Stanford MD - 09/02/2022 11:16 AM PDT Rehabilitation Medicine Progress Note Kendall Lopez (Kendall) - : 1940 (82 year old male) Preferred Pronouns: he/him/his PCP: Cici Jones MD Code Status: Full Code CHIEF CONCERN / IDENTIFICATION: Kendall Lopez is an 82 year-old RHD male with history of HTN, HLD, T1DM, RA on immunosuppression who presented to an OSH with AMS/aphasia, found to have 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 SUBJECTIVE Spoke at length with Daphne about course of atherosclerotic dz. That diet and exercise are best lifestyle treatments available once dz has set in. Also discussed prognosis of current stroke, and future risk of stroke. Patient mostly unable to follow course of conversation. Does not note any concerns. MEDICATIONS: Scheduled medications: aspirin, 325 mg, Oral, Daily heparin, 5,000 units, Subcutaneous, q12h ASTRID hydroxychloroquine, 200 mg, Oral, BID insulin GLARGINE, 18 units, Subcutaneous, q AM insulin LISPRO, 0-4 units, Subcutaneous, q HS insulin LISPRO, 0-5 units, Subcutaneous, TID before meals insulin LISPRO, 0-8 units, Subcutaneous, q24h insulin LISPRO, , Subcutaneous, TID before meals rosuvastatin, 5 mg, Oral, Daily senna, 17.6 mg, Oral, BID sulfaSALAzine, 1,000 mg, Oral, BID PRN medications: PRN medications: acetaminophen, dextrose, dextrose, glucagon, glucagon, ipratropium-albuterol, labetalol, melatonin, ondansetron, zinc oxide OBJECTIVE T: 36.4 ??C (08/27/222037) BP: 116/84 (08/27/222037) HR: 80 (08/27/222037) RR: 16 (08/27/222037) SpO2: 95 % (08/27/222037) Room air Vitals (Most recent in last 24 hrs) T: 36.3 ??C (09/02/22739) BP: 120/68 (09/02/22739) HR: 79 (09/02/22739) RR: 16 (09/02/22739) SpO2: 95 % (09/02/22739) Room air T range: Temp Min: 36.3 ??C Max: 36.3 ??C Wt 153 lb (69.4 kg) Ht 5' 11 (1.803 m) Body mass index is 21.34 kg/m??. Physical Exam: General: no acute distress, resting comfortably HEENT: normocephalic Cadiac: extremities warm and well perfused Pulmonary: nonlabored breathing on room air Abdomen: nondistended Neuro: alert and awake Aox2 name 2022 not which day or month thought it was May, good, knew he was in hospital but not which even on Able to name simple objects LABS: Labs (last 24 hours): Chemistries CBC LFT Gases, other 132 97 40 117 - AST: - ALT: - -/-/-/- -/-/-/- 4.6 28 1.44 - >< - AP: - T bili: - Lact (a): - Lact (v): - eGFR: 49 Ca: 9.9 - Prot: - Alb: - Trop I: - D-dimer: - Mg: - PO4: - ANC: - BNP: - Anti-Xa: - ALC: - INR: - ADDITIONAL RESULTS/IMAGING: MICRO: I have personally reviewed the latest Micro results and cultures IMAGING: I have reviewed the latest radiology results PATHOLOGY: I have reviewed the latest pathology results ASSESSMENT/PLAN Kendall Lopez is an 82 year-old RHD male with history of HTN, HLD, T1DM, RA on immunosuppression who presented to an OSH with AMS/aphasia, found to have 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 Now medically stable and admitted to [facility] on 08/27/22 for intensive PT, OT, speech therapy. 09/02 - Decreased Lantus to 16u per glycemic control #Rehabilitation plan for ischemic infarct - Continue comprehensive inpatient rehabilitation care including medicine, nursing, physical therapy, occupational therapy, speech therapy, recreational therapy and rehabilitation psychology. Memory Memory is challenge especially antegrade Speech therapy recs: Reinforced introduction to memory book. While referencing calendar, pt ID date, day, mo, yr. Speech Word-finding expressive aphasia noted Agitation None currently Pain No concerns at this time Sleep No concerns at this time 8. Bowel/Bladder a. No concerns at this time 9. Nutrition a. No concerns at this time. Full diet 10. Decreased mood a. No SI/HI - rehab psych becoming involved 11. Mobility a. CGA with all transfers, ambulating 200 ft with no AD Meng 12. Cognitive a. 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 History of old right frontalinfarct, subacute right centrum semioval infarct. Acute/subacute ischemic infarcts in bilateral hemispheres in multiple territories with unknown etiology, currently undergoing extensive workup for feng rce. TTE was negative for atrial mass, which was initial suspicion for a cardioembolic source. Blood cx NGTD and no s/sx of infection, making infective endocarditis very unlikely currently. [facility] had findings most consistent with atherosclerotic changes, with no evidence of vasculitis or other inflammatory process, r/o RA vasculitis. APS labs negative. CT C/A/P overall unremarkable, x1 5mm indeterminate lung nodule and calcified granulomas. Repeat TCD negative. Will work to obtain OSHecho images to ensure there was no prior mass seen. Continue neuro checks with VS monitoring. Continue goals for normotension, normothermia, eunatremia- goal 135-145, and euglycemia: BG <180. The pt remains on ASA 325mg daily and DVT ppx - SQH [id number]. 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 Seems mostly good control at home. Will cont to monitor BGcontrol on current regimen. Appreciate endocrinology recs/assistance as needed. - glargine 18u qam --> 16u starting 09/03 - nutritional insulin 1u:10 carbs - LDSSI w/ meals + qhs - Consult to glycemic control given elevations today and to simplify regimen given cog deficits. 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 Cardiology not concerned and no s/sx of hemodynamic compromise or tamponade.Plan for further monitor outpatient w/ his rn trauma. - outpatient cardiology f/u and eval #ARNAV - Unclear baseline sCr - though prior Cr 1.1 a year ago. Cr 1.32 on admission, now 1.15 on 02/27/22. #HLD - rosuvastatin 5mg #Rheumatoid Arthritis Patient does not endorse any arthritic pain or flare-up episode. To maintain optimal immunosuppression, restarted home RA meds. - continue sulfasalazine and hydroxychloroquine #Asthma, stable - uses fluticasone/salmetrol at home - duoneb prn ordered Inpatient Checklist: Fluids/Electrolytes/Nutrition: Diabetic diet Prophylaxis: SQH q12h Lines/Drains/Airways: pIV Disposition: Neurology acute care Code Status: FULL Contacts: Liyah Lopez - - [phone] GENERAL HEALTH MANAGEMENT Diet: Adult Diet Regular; Carbohydrate managed Bowel Status: Spontaneous, continent Bladder Status: Spontaneous, continent DVT Prophylaxis: SubQ hep Estimated Length of Stay: 10-14 Discharge Location: Home ANTICIPATED FOLLOW-UP AFTER DISCHARGE Rehab Medicine within 1 month after discharge Primary Care Physician within 1 weeks after discharge Therapies: To be determined On discharge, the patient will need the following follow up: - endocrinology - PCP - stroke clinic - cardiology to follow up the cardiac event monitor Associated attestation - [place]leymane Park DO - 09/03/2022 6:40 AM PDT Date of Service: 09/02/22 I saw and evaluated the patient. I have reviewed the resident(s)'s/fellow(s)'s documentation and agree. * Dasha Rodgers, PT - 09/02/2022 9:16 AM PDT Physical Therapy 09/02/22 0815 General PT Treatment Start Time 0815 Treatment End Time 0900 PT Individual 45 [employer] Is an child and adolescent psychologist used? No Subjective Patient Report/Self-Assessment Agreeable to therapy. Slept well. Reports some fatigue but manageable with rest. Patient Stated Goal(s) walk without walker Activity Tolerance / Endurance Activity Tolerance /Endurance Tolerates 30 min of activity with multiple rests Bed Mobility Supine to Sit Supervision / Stand by assistance Sit to Supine Supervision / Stand by assistance Transfers Sit<>Stand Contact guard assist (touching/steadying assistance) Bed<>Chair/WC Contact guard assist (touching/steadying assistance) PT Daily Recommendations PT IRF Daily Recommendations Level 0. Bed mob: SBA. Transfers: CGA. Gait: CGA with FWW or 4WW. Therapeutic Activity Therapeutic Activity Time Entry 5 Therapeutic Activity 1 bed mobility Therapeutic Activity 2 sit/stand transfers with FWW vs no device, CGA Therapeutic Activity 3 donning shoes with supervision and extra time Balance/Neuromuscular Re-Education Neuromuscular Re-Education Time Entry 25 Balance/Neuromuscular Re-Education Activity 1 sit to/from stand while holding dowel, emphasis on motor plan/sequencing anterior weight shift and postural extension upon stand; frequent cues for technique. CGA Balance/Neuromuscular Re-Education Activity 2 foot taps to 6 inch step, no device; emphasis on weight shift and stance stability, postural extension, and proprioceptive awareness with forward gaze. hand hold assist progressing to CGA Balance/Neuromuscular Re-Education Activity 3 standing scapular retraction rows with red theraband;emphasis on thoracic extension with standing stability. CGA Gait Training Gait Training Time Entry 15 Gait Training Activity 1 150 feet x 3, with FWW and SBA/CGA. Seated rest breaks between each bout. Cues for upright posture and forward gaze. * Afshan Landa, OT - 09/01/2022 4:05 PM PDT 09/01/22 1300 OT Last Visit OT Received On 09/01/22 OT Diagnosis Kendall Lopez is an 82 year-old RHD male with history of HTN, HLD, T1DM, RA on immunosuppression who presented to an OSH with AMS/aphasia, found to have acute left basal ganglia and thalamus infarcts, subacute right centrum semioval and old right frontal infarcts with etiology 2/2 ath erosclerotic disease. OT Consideration Decreased memory, visual percpetual impairments, dec insight into safety, bed alarm Therapy Minutes (IP Rehab Only) Family/Caregiver Present No OT Treatment START Time 1300 Treatment End Time 1345 OT Individual 45 OT Daily Recommendations OT Daily Recommendations Showers MWF, toileting with CGA to toilet, ambulating with FWW and CGA-Meng Subjective Patient Report/Self-Assessment patient alert and agreeable to OT Patient Stated Goal Pt would like to shave [employer] Is an child and adolescent psychologist used? No Self-Care/Home Management Time Entry (min) 45 Minutes Grooming Contact guard assist (touching/steadying assistance) Grooming Comments standing at sink to shave, pt requires SBA/CGA intermittently and cueing to sequence through task and end task steps once finished. Putting on/taking off footwear Maximum Assist (between 50-74% help needed) Putting on/taking off footwear Comment to put shoes on Toileting Contact guard assist (touching/steadying assistance) Toileting Comments for clothing management, fall safety ADL Comments Requires increased time for tasks, needs cues for sequencing and task completion Money Management Bill pay: attempted scanning activity using simulated bills. pt needs moderate cueing to locate date, bill amounts. Pt is currently max A/dep for money management tasks. OT Activities Total time minutes Total Exercise/Activity Time Rows 45 Returned to room at EOS, resting comfortably in bed, call light in reach. Bed alarm on. * Afshan Landa, OT - 09/01/2022 3:59 PM PDT 09/01/22 1554 OT Last Visit OT Received On 09/01/22 OT Diagnosis Kendall Lopez is an 82 year-old RHD male with history of HTN, HLD, T1DM, RA on immunosuppression who presented to an OSH with AMS/aphasia, found to have acute left basal ganglia and thalamus infarcts, subacute right centrum semioval and old right frontal infarcts with etiology 2/2 ath erosclerotic disease. OT Consideration Decreased memory, visual percpetual impairments, dec insight into safety, bed alarm Therapy Minutes (IP Rehab Only) Family/Caregiver Present No OT Treatment START Time 0945 Treatment End Time 1030 OT Individual 45 OT Daily Recommendations OT Daily Recommendations Showers MWF, toileting with min A to toilet, ambulating with FWW and CGA-min A Subjective Patient Report/Self-Assessment patient alert and agreeable to OT Patient Stated Goal none stated, but agreeable to shower today [employer] Is an child and adolescent psychologist used? No Self-Care/Home Management Time Entry (min) 45 Minutes Oral Hygiene Contact guard assist (touching/steadying assistance) Oral Hygiene Comments standing at sink; Needs set up and visual cue Upper Body Dressing Minimum Assist (less than 25% help needed) UE Dressing Comments seated on shower bench to doff and don shirt Lower Body Dressing Minimum Assist (less than 25% help needed) LE Dressing Comments difficulty reaching feet; Would benefit from grapple yarder operator trial Putting on/taking off footwear Maximum Assist (between 50-74% help needed) Putting on/taking off footwear Comment to don shoes Toileting Contact guard assist (touching/steadying assistance) Toileting Comments for clothing management when standing; cues for fall safety, including walker placement and to sit for toileting Bathing Minimum Assist (less than 25% help needed) Bathing Comments cues to sequence task effectively; needs assist to reach feet and to progress through steps ADL Comments Pt limited by balance and sequencing of task steps; Visual perceptual impairments alsoimpact safety OT Activities Total time minutes Total Exercise/Activity Time Rows 45 Left sitting EOB with just arriving, and PT approaching. Call light in reach. * Lida Storm, STRAIGHT CUTTER - 09/01/2022 3:55 PM PDT Speech Language Pathology Treatment Patient Name: Kendall Lopez Today's Date: 09/01/2022 Subjective Patient Report/Self-Assessment: Pt seen in therapy room, pt agreeable to therapy. Per , Kendall does not speak up since his most recent stroke. She reported that he frequently will not participate in social conversations, or initiate requests to get needs met such as hunger/thirst. 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 No past surgical history on file. General Visit Information [employer] Last Visit [employer] Received On: 09/01/22 [employer] Document Type: Progress [employer] Total Treatement Time in Minutes: 45 Minutes Visual Acuity: Corrective lenses Auditory Acuity: Functional in conversation Family/Caregiver Present: Yes Family/Caregiver Comments: Prior Function Prior Function: Pt reports he lives in [place] with his . Neurology note states: right frontal infarct in the [place] territory in June. Unclear whether pt had residual cognitive-communicationdeficits, plan to discuss with family when present. 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 Pt and endorsed decreased mood, potential depression since latest stroke. Contacted rehab psych to continue the conversation/ follow up. - Safety: Pt was agreeable to safety recommendations provided by team however demonstrated limited buy-in to recommendations and safety awareness as he reported he doesn't think he needs fall precautions or to call RN for assistance to bathroom. MEMORY - Reinforced introduction to memory book. While referencing calendar, pt ID date, day, mo, yr. Assessment/Plan Swallow Recommendations Diet Recommendations: Regular;0-Thin liquids Medication Administration Recommendations: Meds as tolerated Oral care: Frequency: 2-3x per day Aspiration Precautions: As upright as medically possible for all oral intake;Fully alert for all POintake;One sip at a time;Cut up/set up Cognitive Communication Recommendations Cognitive Communication Recommendations : Allow patient breaks as needed;Follow consistent routine as able;Reduce external stimuli (TV, smart phone, electronic devices, number of visitors) Communication Recommendations: Allow automatic function as able;Make sure you have patient's attention before speaking to them;Keep verbal input short, simple, direct;Give patient extra time to respond and speak;Try asking simple yes/no questions I have reviewed the documentation of this visit and I confirm that I was present for the entire session and not engaged in other tasks. I directed / guided the services and am responsible for the assessment and treatment of this patient in this visit. 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 No Subjective Patient Report/Self-Assessment Pt agrees to therapy. Reports becoming more fatigued throughout session but agrees to continued activities with rest breaks. PT Daily Recommendations PT IRF Daily Recommendations Level 0. Bed mob: SBA. Transfers: CGA. Gait: CGA with FWW or 4WW. Therapeutic Exercise Therapeutic Exercise Time Entry 20 Therapeutic Exercise Activity 1 Setup and exercise on Nustep Level 3 x 15 minutes, BUEs and BLEs. Total 0.70 miles, average 84 SPM. Therapeutic Activity Therapeutic Activity Time Entry 10 Therapeutic Activity 1 Supine<>sit with SBA. Therapeutic Activity 2 Sit<>stand transfers and stand pivot transfers throughout session withFWW and SBA-CGA. Therapeutic Activity 3 Donning and doffing shoes with assist. Gait Training Gait Training Time Entry 15 Gait Training Activity 1 Pt ambulated 150 feet, 175 feet, 250 feet x 2 with FWW and SBA-CGA. Cues for upright posture. Seated rest breaks after each bout. * Maria G Samayoa, OT - 09/01/2022 1:51 PM PDT [employer] Progress- Discharge Planning Note Visit Information Admission diagnosis: Cerebrovascular accident (CVA) of left basal ganglia (HCC) Expected Discharge Date: 09/09/2022 Discharge Plan: Home Insurance Information MEDICARE/MEDICARE PART A AND B Subscriber: Kendall Lopez Subscriber#: [id number] Group#: -- Precert#: -- [facility] AARP MEDICARE SUPPLEMENT Subscriber: Kendall Lopez Subscriber#: [id number] Group#: -- Precert#: -- Primary Care Provider/Care Team: Primary Care Provider: Patient Care Team: Cici Jones MD as PCP - General (Internal Medicine) -Patient provided [employer] Technician permission to coordinate hospital discharge appointment, pending community discharge Contact(s) preferred for Weekly Conferences: Extended Emergency Contact Information [facility]: [facility] Relation: Preferred Pharmacy for discharge medications: [facility] GCT/Discharge Pharmacy Interventions: After care appointment scheduled with MARIELLA Palacios of 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 No Subjective Patient Report/Self-Assessment Pt agrees to therapy. Reports that it feels easier to walk with the walker compared to without. His reports his walking looks better today. PT Daily Recommendations PT IRF Daily Recommendations Level 0. Bed mob: SBA. Transfers: CGA. Gait: CGA with FWW or 4WW. Therapeutic Activity Therapeutic Activity Time Entry 15 Therapeutic Activity 1 Sit<>stand transfers throughout session with CGA with FWW v. parallel bars v. no AD. Therapeutic Activity 2 Repeated sit<>stand transfers in sets of 5-10 with no AD, lowering mattable height. Initial tendency for keeping weight posteriorly upon standing but improves with reps.CGA. Balance/Neuromuscular Re-Education Neuromuscular Re-Education Time Entry 15 Balance/Neuromuscular Re-Education Activity 1 Standing in parallel bars without UE support: feet apart, feet apart + horizontal and vertical head turns, feet together, modified tandem stance B. Most difficulty with modified tandem with R foot forward with repeated LOB toward R, self-corrected on parallel bars. CGA- min A. Balance/Neuromuscular Re-Education Activity 2 In parallel bars without UE support: sidestepping, forward walking, backward walking. CGA-min A. Gait Training Gait Training Time Entry 15 Gait Training Activity 1 Pt ambulated 150 feet x 2 with FWW and SBA-CGA. Gait Training Activity 2 Pt ambulated 100 feet, 140 feet with no AD and CGA-min A with notable fatigue with longer distance. Gait Training Activity 3 Pt education with pt and regarding progression of gait and decreasingassistive device use over time - stated understanding. * Mamta Branham LSWAIC - 09/01/2022 11:23 AM PDT Social Work Progress Note Service: REHAB MEDICINE BLUE 1 Admit reason: This is a 82 year old old male admitted for Cerebrovascular accident (CVA) of left basal ganglia (HCC) [I63.81]. Funding: Insurance Information MEDICARE/MEDICARE PART A AND B Subscriber: Kendall Lopez Subscriber#: [id number] Group#: -- Precert#: -- [facility]IC[facility] SUPPLEMENT Subscriber: Kendall Lopez Subscriber#: [id number] Group#: -- Precert#: -- Healthcare Decision Making Information: Pt, as able. His is primary DPOA for Healthcare and his daughter, Mamta, is secondary DPOA Contact in Following Order for Legal Next of Kin Decision Making: Patient as able Liyah Lopez: DPOA/: [phone] Mamta Lopez: Secondary DPOA/Daughter: [phone] Gulshan Lopez: Son: [phone] Living Situation Prior to Admit: Home;Spouse/Significant other Anticipated Living Situation Post Discharge/Needs: Home Anticipated Discharge Date: 09/09/2022 Patient Care Team: Cici Jones MD as PCP - General (Internal Medicine) ASSESSMENT: Per chart: Kendall Lopez is an 82 year-old RHD male with history of HTN, HLD, T1DM, RA on immunosuppression who presented to an OSH with AMS/aphasia, found to have 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 INTERVENTION: Plan is for pt to discharge home with his ; they live in [place]. Rehab Team is recommending that patient follows up with outpatient PT, OT and SP after discharge. SW faxed referral to [facility] and updated the AVS with the referral information. PLAN OR OUTCOME: SW will fax the discharge summary to [facility] Interventions: Discharge planning;Consult with healthcare team ANTHONY Centeno * Paul Stanford MD - 09/01/2022 8:42 AM PDT Rehabilitation Medicine Progress Note Kendall Lopez (Kendall) - : 1940 (82 year old male) Preferred Pronouns: he/him/his PCP: Cici Jones MD Code Status: Full Code CHIEF CONCERN / IDENTIFICATION: Kendall Lopez is an 82 year-old RHD male with history of HTN, HLD, T1DM, RA on immunosuppression who presented to an OSH with AMS/aphasia, found to have 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 SUBJECTIVE Feeling well today, no concerns. Had BM yesterday. MEDICATIONS: Scheduled medications: aspirin, 325 mg, Oral, Daily heparin, 5,000 units, Subcutaneous, q12h ASTRID hydroxychloroquine, 200 mg, Oral, BID insulin GLARGINE, 18 units, Subcutaneous, q AM insulin LISPRO, 0-4 units, Subcutaneous, q HS insulin LISPRO, 0-5 units, Subcutaneous, TID before meals insulin LISPRO, 0-8 units, Subcutaneous, q24h insulin LISPRO, , Subcutaneous, TID before meals rosuvastatin, 5 mg, Oral, Daily senna, 17.6 mg, Oral, BID sulfaSALAzine, 1,000 mg, Oral, BID PRN medications: PRN medications: acetaminophen, dextrose, dextrose, glucagon, glucagon, ipratropium-albuterol, labetalol, melatonin, ondansetron, zinc oxide OBJECTIVE T: 36.4 ??C (08/27/222037) BP: 116/84 (08/27/222037) HR: 80 (08/27/222037) RR: 16 (08/27/222037) SpO2: 95 % (08/27/222037) Room air Vitals (Most recent in last 24 hrs) T: 36.9 ??C (08/31/221954) BP: (!) 108/54 (08/31/221954) HR: 83 (08/31/221954) RR: 16 (08/31/221954) SpO2: 96 % (08/31/221954) Room air T range: Temp Min: 36.1 ??C Max: 36.9 ??C Wt 153 lb (69.4 kg) Ht 5' 11 (1.803 m) Body mass index is 21.34 kg/m??. Physical Exam: General: no acute distress, resting comfortably HEENT: normocephalic Cadiac: extremities warm and well perfused Pulmonary: nonlabored breathing on room air Abdomen: nondistended Neuro: alert and awake Aox2-3 name lorne, mar 17, 2022, [place], knew he was in hospital but not which even on Micrographia noted when asked to write a sentence, also difficulty expressing himself through verbal / written communication noted. With incoherent sentence structure written. Able to name simple objects LABS: Labs (last 24 hours): Chemistries CBC LFT Gases, other - - - 111 - AST: - ALT: - -/-/-/- -/-/-/- - - - - >< - AP: - T bili: - Lact (a): - Lact (v): - eGFR: - Ca: - - Prot: - Alb: - Trop I: - D-dimer: - Mg: - PO4: - ANC: - BNP: - Anti-Xa: - ALC: - INR: - ADDITIONAL RESULTS/IMAGING: MICRO: I have personally reviewed the latest Micro results and cultures IMAGING: I have reviewed the latest radiology results PATHOLOGY: I have reviewed the latest pathology results ASSESSMENT/PLAN Kendall Lopez is an 82 year-old RHD male with history of HTN, HLD, T1DM, RA on immunosuppression who presented to an OSH with AMS/aphasia, found to have 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 Now medically stable and admitted to [facility] on 08/27/22 for intensive PT, OT, speech therapy. 09/01 - Sugars good last 24 hours with extra check - Still Aox1-2 - F/u BMP this AM #Rehabilitation plan for ischemic infarct - Continue comprehensive inpatient rehabilitation care including medicine, nursing, physical therapy, occupational therapy, speech therapy, recreational therapy and rehabilitation psychology. Memory Memory is challenge especially antegrade Speech Word-finding expressive aphasia noted Agitation None currently Pain No concerns at this time Sleep No concerns at this time 8. Bowel/Bladder a. No concerns at this time 9. Nutrition a. 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 History of old right frontalinfarct, subacute right centrum semioval infarct. Acute/subacute ischemic infarcts in bilateral hemispheres in multiple territories with unknown etiology, currently undergoing extensive workup for feng rce. TTE was negative for atrial mass, which was initial suspicion for a cardioembolic source. Blood cx NGTD and no s/sx of infection, making infective endocarditis very unlikely currently. MRI blackblood had findings most consistent with atherosclerotic changes, with no evidence of vasculitis or other inflammatory process, r/o RA vasculitis. APS labs negative. CT C/A/P overall unremarkable, x1 5mm indeterminate lung nodule and calcified granulomas. Repeat TCD negative. Will work to obtain OSHecho images to ensure there was no prior mass seen. Continue neuro checks with VS monitoring. Continue goals for normotension, normothermia, eunatremia- goal 135-145, and euglycemia: BG <180. The pt remains on ASA 325mg daily and DVT ppx - SQH [id number]. 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 Seems mostly good control at home. Will cont to monitor BGcontrol on current regimen. Appreciate endocrinology recs/assistance as needed. - glargine 18u qam - nutritional insulin 1u:10 carbs - LDSSI w/ meals + qhs - Consult to glycemic control given elevations today and to simplify regimen given cog deficits. 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 Cardiology not concerned and no s/sx of hemodynamic compromise or tamponade.Plan for further monitor outpatient w/ his rn trauma. - outpatient f/u and eval #ARNAV - Unclear baseline sCr - though prior Cr 1.1 a year ago. Cr 1.32 on admission, now 1.15 on 02/27/22. #HLD - rosuvastatin 5mg #Rheumatoid Arthritis Patient does not endorse any arthritic pain or flare-up episode. To maintain optimal immunosuppression, restarted home RA meds. - continue sulfasalazine and hydroxychloroquine #Asthma, stable - uses fluticasone/salmetrol at home - duoneb prn ordered Inpatient Checklist: Fluids/Electrolytes/Nutrition: Diabetic diet Prophylaxis: SQH q12h Lines/Drains/Airways: pIV Disposition: Neurology acute care Code Status: FULL Contacts: Liyah Lopez - - [phone] GENERAL HEALTH MANAGEMENT Diet: Adult Diet Regular; Carbohydrate managed Bowel Status: Spontaneous, continent Bladder Status: Spontaneous, continent DVT Prophylaxis: SubQ hep Estimated Length of Stay: 10-14 Discharge Location: Home ANTICIPATED FOLLOW-UP AFTER DISCHARGE Rehab Medicine within 1 month after discharge Primary Care Physician within 1 weeks after discharge Therapies: To be determined On discharge, the patient will need the following follow up: - endocrinology - PCP - stroke clinic - cardiology to follow up the cardiac event monitor Associated attestation - Souleymane Park DO - 09/01/2022 12:28 PM PDT Date of Service: 09/01/22 I saw and evaluated the patient. I have reviewed the resident(s)'s/fellow(s)'s documentation and agree. 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 No Subjective Patient Report/Self-Assessment Pt presents seated on toilet. present. Agreeable for therapy PT Daily Recommendations PT IRF Daily Recommendations Meng for transfers and CGA-Meng for walking with FWW or 4WW. CommunityLevel 0 Therapeutic Exercise Therapeutic Exercise Time Entry 15 Therapeutic Exercise Activity 1 NuStep x8 minutes total with LEs only, level 2 Therapeutic Exercise Activity 2 Standing postural exercise with back to wall, focus on maintaining upright posture which is moderately challenging Therapeutic Activity Therapeutic Activity Time Entry 10 Therapeutic Activity 1 Sitting balance while briefs and shorts are donned in seated on toilet Therapeutic Activity 2 Pt stands to wash hands with CGA Gait Training Gait Training Time Entry 20 Gait Training Activity 1 Gait on unit with FWW x150' to gym, close SBA Gait Training Activity 2 Gait with 4ww, 1x200', 1x150, 1x100' with CGA to SBA, cues for upright posture and proximity to walker Gait Training Activity 3 Gait on unit with FWW x300', x150' with VCs for upright posture, but better adherence Gait Training Activity 4 ' * Afshan Landa, OT - 08/30/2022 12:59 PM PDT 08/30/22 1030 OT Last Visit OT Received On 08/30/22 OT Diagnosis Kendall Lopez is an 82 year-old RHD male with history of HTN, HLD, T1DM, RA on immunosuppression who presented to an OSH with AMS/aphasia, found to have acute left basal ganglia and thalamus infarcts, subacute right centrum semioval and old right frontal infarcts with etiology 2/2 ath erosclerotic disease. OT Consideration Decreased memory, visual percpetual impairments, dec insight into safety, bed alarm Therapy Minutes (IP Rehab Only) Family/Caregiver Present Yes OT Treatment START Time 1030 Treatment End Time 1115 OT Individual 45 OT Daily Recommendations OT Daily Recommendations Showers MWF, toileting with min A to toilet, ambulating with FWW and CGA-min A Subjective Patient Report/Self-Assessment patient alert and agreeable to OT Patient Stated Goal Pt states she would like him to work on balance and vision [employer] Is an child and adolescent psychologist used? No Self-Care/Home Management Time Entry (min) 15 Minutes Grooming Contact guard assist (touching/steadying assistance) Grooming Comments standing at sink to wash hands, 1 verbal cue Lower Body Dressing Minimum Assist (less than 25% help needed) LE Dressing Comments to tie pants Putting on/taking off footwear Minimum Assist (less than 25% help needed) Putting on/taking off footwear Comment to doff shoes Toileting Contact guard assist (touching/steadying assistance) Toileting Comments to manage pants Bed Mobility Sit>Supine Supervision / Stand by assistance Scooting Supervision / Stand by assistance Transfers Sit<>Stand Moderate Assist (between 25-49% help needed) Cuing Used Verbal Functional Mobility Distance room<>gym Assistance Needs Contact guard assist (touching/steadying assistance) Functional Mobility Assistive Device Details Front wheeled walker Therapeutic Activity Therapeutic Activity Time Entry 30 Therapeutic Activity 1 functional scanning activity in standing w/FWW: pt completed matching task with road signs/names and requried significant cueing. Pt with decreased problem solving, limited scanning to end ranges, and difficulty placing items outside his reach. needed direct cues to complete task, and 2 rest breaks due to fatigue. Therapeutic Activity 2 letter search: using L>R scanning strategy but misses ~40% of targets despite cues OT Activities Total time minutes Total Exercise/Activity Time Rows 45 Left resting in bed, bed alarm on, spouse at bedside, call light in reach. 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 No Subjective Patient Report/Self-Assessment Pt presents supine in bed. Agreeable for therapy PT Daily Recommendations PT IRF Daily Recommendations Meng for transfers and CGA-Meng for walking with FWW or 4WW. CommunityLevel 0 Gait Training Gait Training Time Entry 45 Gait Training Activity 1 Gait room to gym with FWW and CGA, cues for upright posture. Gait Training Activity 2 Gait with 4ww in bouts of 150' at a time. Total of 8 bouts with cues for upright posture, picking RLE up in swing phase. Rest breaks for fatigue management, as pt tends to forward lean and walker tends to get away from him increasingly with more walking and fatigue Gait Training Activity 3 Pt completes session seated in bedside chair. Call light in reach * Katelyn Nina, [facility] - 08/30/2022 12:14 PM PDT Speech Language Pathology- Swallow Assessment, Cognitive Tx Patient Name: Kendall Lopez Today's Date: 08/30/2022 Subjective Patient Report/Self-Assessment: Pt seen in room, pt agreeable to therapy. 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 No past surgical history on file. General Visit Information [employer] Last Visit [employer] Received On: 08/30/22 [employer] Document Type: Progress [employer] Total Treatement Time in Minutes: 45 Minutes Visual Acuity: Corrective lenses Auditory Acuity: Functional in conversation Family/Caregiver Present: No Prior Function Prior Function: Pt reports he lives in [place] with his . Neurology note states: right frontal infarct in the MCA/AYLIN territory in June. Unclear whether pt had residual cognitive-communicationdeficits, plan to discuss with family when present. 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 Pt demonstrated throat clear after the swallow with consecutive sips of thin liquid x1. Additional consecutive and straw sips of thin liquids yielded no s/s aspiration. Recommended that pt take single sips via straw which he was able to follow with 80% accuracy. Pt consumed 100% of breakfast tray. Yellow swallow sign hung at bedside. Mild deficits with problem solving noted during breakfast- pt attempting to cut omelete with spoon,did not initiate to utilize fork/knife without verbal instructions. After this cue, able to self feed breakfast appropriately. Memory Aids - placed memory log materials in binder - oriented pt to binder - initiated daily log for today Assessment/Plan Swallow Recommendations Diet Recommendations: Regular;0-Thin liquids Medication Administration Recommendations: Meds as tolerated Oral care: Frequency: 2-3x per day Aspiration Precautions: As upright as medically possible for all oral intake;Fully alert for all POintake;One sip at a time;Cut up/set up Cognitive Communication Recommendations Cognitive Communication Recommendations : Allow patient breaks as needed;Follow consistent routine as able;Reduce external stimuli (TV, smart phone, electronic devices, number of visitors) Communication Recommendations: Allow automatic function as able;Make sure you have patient's attention before speaking to them;Keep verbal input short, simple, direct;Give patient extra time to respond and speak;Try asking simple yes/no questions * Paul Stanford MD - 08/30/2022 7:41 AM PDT Rehabilitation Medicine Progress Note Kendall Lopez (Kendall) - : 1940 (82 year old male) Preferred Pronouns: he/him/his PCP: Cici Jones MD Code Status: Full Code CHIEF CONCERN / IDENTIFICATION: Kendall Lopez is an 82 year-old RHD male with history of HTN, HLD, T1DM, RA on immunosuppression who presented to an OSH with AMS/aphasia, found to have 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 SUBJECTIVE No increased thirst/polyuria with elevated sugars. No abdominal pain, no increased confusion. No other concerns noted. MEDICATIONS: Scheduled medications: aspirin, 325 mg, Oral, Daily heparin, 5,000 units, Subcutaneous, q12h ASTRID hydroxychloroquine, 200 mg, Oral, BID insulin GLARGINE, 18 units, Subcutaneous, q AM insulin LISPRO, 0-4 units, Subcutaneous, q HS insulin LISPRO, 0-5 units, Subcutaneous, TID before meals insulin LISPRO, 0-8 units, Subcutaneous, q24h insulin LISPRO, 15 units, Subcutaneous, Once insulin LISPRO, , Subcutaneous, TID before meals rosuvastatin, 5 mg, Oral, Daily senna, 17.6 mg, Oral, BID sulfaSALAzine, 1,000 mg, Oral, BID PRN medications: PRN medications: acetaminophen, dextrose, dextrose, glucagon, glucagon, ipratropium-albuterol, labetalol, melatonin, ondansetron, zinc oxide OBJECTIVE T: 36.4 ??C (08/27/222037) BP: 116/84 (08/27/222037) HR: 80 (08/27/222037) RR: 16 (08/27/222037) SpO2: 95 % (08/27/222037) Room air Vitals (Most recent in last 24 hrs) T: 36.6 ??C (08/29/221944) BP: 113/63 (08/29/221944) HR: 80 (08/29/221944) RR: 16 (08/29/221944) SpO2: 99 % (08/29/221944) Room air T range: Temp Min: 36.3 ??C Max: 36.6 ??C Wt 153 lb (69.4 kg) Ht 5' 11 (1.803 m) Body mass index is 21.34 kg/m??. Physical Exam: General: no acute distress, resting comfortably HEENT: normocephalic Cadiac: extremities warm and well perfused Pulmonary: nonlabored breathing on room air Abdomen: nondistended Neuro: alert and awake LABS: Labs (last 24 hours): Chemistries CBC LFT Gases, other 133 102 39 501 - AST: - ALT: - -/-/-/- -/-/-/- 4.8 23 1.34 - >< - AP: - T bili: - Lact (a): - Lact (v): - eGFR: 54 Ca: 9.5 - Prot: - Alb: - Trop I: - D-dimer: - Mg: - PO4: - ANC: - BNP: - Anti-Xa: - ALC: - INR: - ADDITIONAL RESULTS/IMAGING: MICRO: I have personally reviewed the latest Micro results and cultures IMAGING: I have reviewed the latest radiology results PATHOLOGY: I have reviewed the latest pathology results ASSESSMENT/PLAN Kendall Lopez is an 82 year-old RHD male with history of HTN, HLD, T1DM, RA on immunosuppression who presented to an OSH with AMS/aphasia, found to have 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 Now medically stable and admitted to [facility] on 08/27/22 for intensive PT, OT, speech therapy. 08/30/22 - elevated sugars to 500s this AM - ordered 10 extra units Lispro - ordered new BMP this AM --> correlated sugars. Also Na 131 ordered Uosm, U electrolytes and will f/u - Ordered extra sugar check at 2AM with medium dose correction Rest of plan per 08/29 note #Rehabilitation plan for ischemic infarct - Continue comprehensive inpatient rehabilitation care including medicine, nursing, physical therapy, occupational therapy, speech therapy, recreational therapy and rehabilitation psychology. Memory Memory is challenge especially antegrade Speech Word-finding expressive aphasia noted Agitation None currently Pain No concerns at this time Sleep No concerns at this time 8. Bowel/Bladder a. No concerns at this time 9. Nutrition a. 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 History of old right frontalinfarct, subacute right centrum semioval infarct. Acute/subacute ischemic infarcts in bilateral hemispheres in multiple territories with unknown etiology, currently undergoing extensive workup for feng rce. TTE was negative for atrial mass, which was initial suspicion for a cardioembolic source. Blood cx NGTD and no s/sx of infection, making infective endocarditis very unlikely currently. MRI blackblood had findings most consistent with atherosclerotic changes, with no evidence of vasculitis or other inflammatory process, r/o RA vasculitis. APS labs negative. CT C/A/P overall unremarkable, x1 5mm indeterminate lung nodule and calcified granulomas. Repeat TCD negative. Will work to obtain OSHecho images to ensure there was no prior mass seen. Continue neuro checks with VS monitoring. Continue goals for normotension, normothermia, eunatremia- goal 135-145, and euglycemia: BG <180. The pt remains on ASA 325mg daily and DVT ppx - SQH [id number]. 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 Seems mostly good control at home. Will cont to monitor BGcontrol on current regimen. Appreciate endocrinology recs/assistance as needed. - glargine 18u qam - nutritional insulin 1u:10 carbs - LDSSI w/ meals + qhs - Consult to glycemic control given elevations today and to simplify regimen given cog deficits. 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 Cardiology not concerned and no s/sx of hemodynamic compromise or tamponade.Plan for further monitor outpatient w/ his rn trauma. - outpatient f/u and eval #ARNAV - Unclear baseline sCr - though prior Cr 1.1 a year ago. Cr 1.32 on admission, now 1.15 on 02/27/22. #HLD - rosuvastatin 5mg #Rheumatoid Arthritis Patient does not endorse any arthritic pain or flare-up episode. To maintain optimal immunosuppression, restarted home RA meds. - continue sulfasalazine and hydroxychloroquine #Asthma, stable - uses fluticasone/salmetrol at home - duoneb prn ordered Inpatient Checklist: Fluids/Electrolytes/Nutrition: Diabetic diet Prophylaxis: SQH q12h Lines/Drains/Airways: pIV Disposition: Neurology acute care Code Status: FULL Contacts: Liyah Lopez - - [phone] GENERAL HEALTH MANAGEMENT Diet: Adult Diet Regular; Carbohydrate managed Bowel Status: Spontaneous, continent Bladder Status: Spontaneous, continent DVT Prophylaxis: SubQ hep Estimated Length of Stay: 10-14 Discharge Location: Home ANTICIPATED FOLLOW-UP AFTER DISCHARGE Rehab Medicine within 1 month after discharge Primary Care Physician within 1 weeks after discharge Therapies: To be determined On discharge, the patient will need the following follow up: - endocrinology - PCP - stroke clinic - cardiology to follow up the cardiac event monitor Associated attestation - Chauncey Shepard MD - 08/30/2022 12:33 PM PDT Date of Service: 08/30/22 I saw and evaluated the patient. I have reviewed the resident(s)'s/fellow(s)'s documentation and agree. In addition to the residents note I would make the following correction: Patient with substantial hyperglycemia to the 500s. Hyponatremia to 131 but corrects to normal whenadjusted for glucose. No need for additional work-up of hyponatremia. We are adding an additional blood glucose check at 2 AM in order to better manage morning hyperglycemia. We will continue to work with the glycemic team to optimize care. 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 No PT Daily Recommendations PT IRF Daily Recommendations Meng for transfers and CGA-Meng for walking with FWW or 4WW. CommunityLevel 0 Therapeutic Exercise Therapeutic Exercise Time Entry 15 Therapeutic Exercise Activity 1 Supine exercises; bridges, supine to sit transfers, and lateral leans at EOB\ Therapeutic Exercise Activity 2 Seated balance; pt preferred due to standing fatigue after ambulation; ant/post and lateral leans, cues for full ROM and initial assist for returning to upright sitting Gait Training Gait Training Time Entry 30 Gait Training Activity 1 Ambulation with RW; CGA - SBA throughout, cues for posture and gripping with RUE on walker, Gait Training Activity 2 Ambiulation with wall rail x120 ft, cues for posture and needs CGA, slowedgait speed * Lida Storm, STRAIGHT CUTTER - 08/29/2022 4:10 PM PDT 08/29/22 1115 [employer] Last Visit [employer] Received On 08/29/22 General [employer] Document Type Progress [employer] Total Treatement Time in Minutes 45 Minutes Visual Acuity Corrective lenses Auditory Acuity Functional in conversation Family/Caregiver Present No [employer] Is an child and adolescent psychologist used? No Therapy Minutes (IP Rehab Only) [employer] Individual 45 Subjective Patient Report/Self-Assessment Pt seen in therapy room. Agreeable to session. Reported changes to his vison as signs being difficult to read, and vision being out of focus. Verbal Expression Verbal Expression Impaired Responsive Naming 80-85% accuracy Problem Solving/Reasoning Problem Solving Impaired Formal Assessments CLQT, mazes;SCATBI, convergent thinking (central theme) CLQT, mazes +7/8 (above average for ages >70) SCATBI, convergent thinking (central theme) +0/3 (Perseveration on prior answers, e.g, repeated elevator x2 for final scenario describing movie theater, which was provided as answer to previous scenario.) Visual Perception Visual Perception Impaired Formal Assessments CLQT, Clock Drawing Subtest;CLQT, Symbol Cancellation Subtest CLQT Symbol Cancellation Subtest +10/12 (average for ages >70) (Appropriate scanning L to R, top to bottom, and doubling back to double check work.) CLQT Clock Drawing Subtest +4/13 (below average for ages >70) (Perseveration on diving clock space with lines. Lines became arrows around the 3 and continued around the clock face. Accurate drawing of second and minute hand, although hands reversed to show 2:55 rather than 11:10.) Orientation Orientation Impaired Oriented To Person;Day;Time;Month;Year;Situation [employer] Assessment Assessment Kendall participated in further cognitive-communication evaluation this sessoin. His moderate cognitive-communication deficits are characterized by primary impairments in expressive and receptive language and memory, as well as impairments in executive functions and processing speed. Today's session revealed deficits in visual perception, orientation, and problem solving and reasoning. [employer] Assessment Results Cognitive communication impairment;Aphasia Cognitive Communication Impairment Moderate Aphasia Mild Impact on Function Reduced ability to recall important information;Reduced ability to follow safetyprecautions;Reduced ability to understand and participate in higher level conversations Prognosis Fair Evaluation/Treatment Tolerance Patient tolerated treatment well Short Term Goal Short Term Goal Participate in further evaluation to determine appropriate treatment goals Estimated Completion Date 09/03/22 Goal Status Progressing Short Term Goal Short Term Goal Participate in development and trials of external memory aids Estimated Completion Date 09/03/22 Goal Status Progressing Short Term Goal - Education Patient/caregiver will participate in education regarding Dysphagia;Aphasia;Cognition;CVA Estimated Completion Date 09/03/22 Goal Status Progressing Associated attestation - Joon Apple, [employer] - 08/29/2022 4:16 PM PDT I have reviewed the documentation of this visit and I confirm that I was present for the entire session and not engaged in other tasks. I directed / guided the services and am responsible for the assessment and treatment of this patient in this visit. * Noreen Toussaint, PhD - 08/29/2022 2:00 PM PDT Inpatient Rehab Psychology Note Per I[facility] resident, patient is a 82 year-old RHD male with history of HTN, HLD, T1DM, RA on immunosuppression who presented to an OSH with AMS/aphasia, found to have 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 Visit Information: Face to Face Time: 10min Present in Session: Patient, Rehabilitation Psychology Attending, and Rehabilitation Psychology Resident Reason for Referral: Rehab psych consulted to promote coping during hospitalization and adjustment to injury. Behavioral Observations/Mental Status Appearance: Casually but neatly dressed and Appropriately groomed Behavior: Engaged and Cooperative Orientation: Not formally assessed Attention and Concentration: Alert and Attentive Memory: Impaired Mood: Euthymic Affect: Congruent w/ mood and content Speech: Aphasic and able to communicate basic needs and wants Thought Processes: Goal directed Thought Content: Often not able to answer question asked, but appeared to be related to cognitive impairment. Judgment and Insight: Limited High Risk Factors: none reported Patient Concerns/Symptoms Patient reported that he is adjusting well to IPR. He denied any barriers to participation in therapy, and reported that he is seeing progress. He does note that he is seeing continued impairment, and estimates that he is at approximately 50% of his baseline in processing speed and word finding, and 40% in his memory. Patient denied any specific concerns, states that sleep is adequate and denied pain. He endorsed some mood symptoms, but his report on the PHQ9 was inconsistent. He provided different answers to the same questions when repeated at different times in the discussion without insight that his answers had changed. Interventions: Introduced Rehab Psych service. Provided empathetic and reflective listening. Validated and normalized patient's experience. Given patient's variable reporting, current assessment is likely not an accurate reflection of mood. There are no behavioral indicators of symptoms of depression or anxiety during the current assessment. Will continue to assess as patient improves cognitively. Team Recommendations: -Patient unlikely to benefit from cognitive based intervention for mood at this time, but is more likely to benefit from continued behavioral activation in the form of daily therapy schedule. Plan: Will continue to follow to promote coping during hospitalization and adjustment to injury. Noreen Toussaint, PhD * Shira Ruiz, OT - 08/29/2022 1:00 PM PDT Treatment Note 08/29/22 1300 OT Last Visit OT Diagnosis Kendall Lopez is an 82 year-old RHD male with history of HTN, HLD, T1DM, RA on immunosuppression who presented to an OSH with AMS/aphasia, found to have acute left basal ganglia and thalamus infarcts, subacute right centrum semioval and old right frontal infarcts with etiology 2/2 ath erosclerotic disease. OT Consideration Decreased memory, dec insight into safety, bed alarm Therapy Minutes (IP Rehab Only) Family/Caregiver Present Yes (daughter) OT Treatment START Time 1300 Treatment End Time 1345 OT Individual 45 OT Daily Recommendations OT Daily Recommendations Showers MWF, toileting with mod A to toilet, ambulating with FWW and CGA-min A Subjective Patient Report/Self-Assessment patient alert and agreeable to OT [employer] Is an child and adolescent psychologist used? No Self-Care/Home Management Time Entry (min) 45 Minutes Grooming Contact guard assist (touching/steadying assistance) Grooming Comments standing at the sink shaving his face; increased time for needs d/t slower pace, patient requiring verbal cues for maintaining upright posture. Able to maintain standing for ~20 minutes Transfers Sit<>Stand Contact guard assist (touching/steadying assistance) Sit <> Stand Comments FWW Functional Mobility Distance in room mobility Assistance Needs Contact guard assist (touching/steadying assistance) Functional Mobility Assistive Device Details Front wheeled walker OT Activities Total time minutes Total Exercise/Activity Time Rows 45 Pt was left in chair at bedside with call light in reach, daughter present Shira Ruiz OTD, OTR/L * Nacho Valle, PT - 08/29/2022 10:14 AM PDT Physical Therapy 08/29/22 0815 PT Last Visit PT Received On 08/28/22 PT Diagnosis 82 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 No Subjective Patient Report/Self-Assessment No complaints, ready for PT PT Daily Recommendations PT IRF Daily Recommendations Meng for transfers and CGA-Meng for walking with FWW or 4WW. CommunityLevel 0 Therapeutic Activity Therapeutic Activity Time Entry 10 Therapeutic Activity 1 Transfers to standing with FWW and CGA Therapeutic Activity 2 Using toilet with SBA Balance/Neuromuscular Re-Education Neuromuscular Re-Education Time Entry 20 Balance/Neuromuscular Re-Education Activity 1 Standing stability and balance activities including standing on thin foam/blue mat and adding head rotations, nods with some hesitancy, weighshifts with similar hesitancy, eyes closed with increased sway and CGA needed. Balance/Neuromuscular Re-Education Activity 2 Trial standing on yellow foam but unable even with ModA Balance/Neuromuscular Re-Education Activity 3 Alternate stepping with ModA Gait Training Gait Training Time Entry 15 Gait Training Activity 1 Walking on unit with FWW with cues for upright posture, R hand senior sales director consistency and CGA-Meng Gait Training Activity 2 Walking with 4WW with CGA-Meng Gait Training Activity 3 Walking trials without device with similar fwd flexed posture and Meng * Shira Ruiz, OT - 08/29/2022 9:45 AM PDT Treatment Note 08/29/22 0945 OT Last Visit OT Diagnosis Kendall Lopez is an 82 year-old RHD male with history of HTN, HLD, T1DM, RA on immunosuppression who presented to an OSH with AMS/aphasia, found to have acute left basal ganglia and thalamus infarcts, subacute right centrum semioval and old right frontal infarcts with etiology 2/2 ath erosclerotic disease. OT Consideration Decreased memory, dec insight into safety, bed alarm Therapy Minutes (IP Rehab Only) Family/Caregiver Present Yes (daugther present at the end of the session) OT Treatment START Time 944 Treatment End Time 1030 OT Individual 45 OT Daily Recommendations OT Daily Recommendations Showers MWF, toileting with mod A to toilet, ambulating with FWW and CGA-min A Subjective Patient Report/Self-Assessment patient denies pain and agreeable to shower [employer] Is an child and adolescent psychologist used? No Self-Care/Home Management Time Entry (min) 45 Minutes Grooming Supervision / Stand by assistance Grooming Comments to wash hair seated on TTB Upper Body Dressing Supervision / Stand by assistance UE Dressing Comments to doff/hannah tshirt Lower Body Dressing Moderate Assist (between 25-49% help needed) LE Dressing Comments to doff/hannah brief and pants from TTB Putting on/taking off footwear Moderate Assist (between 25-49% help needed) Putting on/taking off footwear Comment to hannah socks Bathing Minimum Assist (less than 25% help needed) Bathing Comments seated on TTB, standing for kim care; patient requiring verbal cues to sequence through steps and for thoroughness; Bed Mobility Supine>Sit Contact guard assist (touching/steadying assistance) Sit>Supine Contact guard assist (touching/steadying assistance) Transfers Shower Transfer Contact guard assist (touching/steadying assistance) Shower Transfers Comments with FWW OT Activities Total time minutes Total Exercise/Activity Time Rows 45 Pt was left in bed with call light in reach, daughter present and bed alarm on. Shira Ruiz OTD, OTR/L * Paul Stanford MD - 08/29/2022 7:38 AM PDT Rehabilitation Medicine Progress Note Kendall Lopez (Kendall) - : 1940 (82 year old male) Preferred Pronouns: he/him/his PCP: Cici Jones MD Code Status: Full Code CHIEF CONCERN / IDENTIFICATION: Kendall Lopez is an 82 year-old RHD male with history of HTN, HLD, T1DM, RA on immunosuppression who presented to an OSH with AMS/aphasia, found to have 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 SUBJECTIVE No AEON. Slept well. Doing well with therapy today. MEDICATIONS: Scheduled medications: aspirin, 325 mg, Oral, Daily heparin, 5,000 units, Subcutaneous, q12h ASTRID hydroxychloroquine, 200 mg, Oral, BID insulin GLARGINE, 18 units, Subcutaneous, q AM insulin LISPRO, 0-4 units, Subcutaneous, q HS insulin LISPRO, 0-5 units, Subcutaneous, TID before meals insulin LISPRO, , Subcutaneous, TID before meals rosuvastatin, 5 mg, Oral, Daily senna, 17.6 mg, Oral, BID sulfaSALAzine, 1,000 mg, Oral, BID PRN medications: PRN medications: acetaminophen, dextrose, dextrose, glucagon, glucagon, ipratropium-albuterol, labetalol, melatonin, ondansetron OBJECTIVE T: 36.4 ??C (08/27/222037) BP: 116/84 (08/27/222037) HR: 80 (08/27/222037) RR: 16 (08/27/222037) SpO2: 95 % (08/27/222037) Room air Vitals (Most recent in last 24 hrs) T: 36.3 ??C (08/29/22442) BP: 121/63 (08/29/22442) HR: 80 (08/29/22442) RR: 16 (08/29/22442) SpO2: 95 % (08/29/22442) Room air T range: Temp Min: 36.3 ??C Max: 36.4 ??C Wt 153 lb (69.4 kg) Ht 5' 11 (1.803 m) Body mass index is 21.34 kg/m??. Physical Exam: General: no acute distress, resting comfortably HEENT: normocephalic [place]: extremities warm and well perfused Pulmonary: nonlabored breathing on room air Abdomen: nondistended Neuro: alert and awake LABS: Labs (last 24 hours): Chemistries CBC LFT Gases, other - - - 103 - AST: - ALT: - -/-/-/- -/-/-/- - - - - >< - AP: - T bili: - Lact (a): - Lact (v): - eGFR: - Ca: - - Prot: - Alb: - Trop I: - D-dimer: - Mg: - PO4: - ANC: - BNP: - Anti-Xa: - ALC: - INR: - ADDITIONAL RESULTS/IMAGING: MICRO: I have personally reviewed the latest Micro results and cultures IMAGING: I have reviewed the latest radiology results PATHOLOGY: I have reviewed the latest pathology results ASSESSMENT/PLAN Kendall Lopez is an 82 year-old RHD male with history of HTN, HLD, T1DM, RA on immunosuppression who presented to an OSH with AMS/aphasia, found to have 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 Now medically stable and admitted to [facility] on 08/27/22 for intensive PT, OT, speech therapy. 08/29/22 - improved sugars - barrier cream for R groin - KRYSTA ordered per neuro/cardio - Cardiac event monitor placed for 30 days - clarify follow-up with cards today #Rehabilitation plan for ischemic infarct - Continue comprehensive inpatient rehabilitation care including medicine, nursing, physical therapy, occupational therapy, speech therapy, recreational therapy and rehabilitation psychology. Memory Memory is challenge especially antegrade Speech Word-finding expressive aphasia noted Agitation None currently Pain No concerns at this time Sleep No concerns at this time 8. Bowel/Bladder a. No concerns at this time 9. Nutrition a. 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 History of old right frontalinfarct, subacute right centrum semioval infarct. Acute/subacute ischemic infarcts in bilateral hemispheres in multiple territories with unknown etiology, currently undergoing extensive workup for feng rce. TTE was negative for atrial mass, which was initial suspicion for a cardioembolic source. Blood cx NGTD and no s/sx of infection, making infective endocarditis very unlikely currently. MRI blackblood had findings most consistent with atherosclerotic changes, with no evidence of vasculitis or other inflammatory process, r/o RA vasculitis. APS labs negative. CT C/A/P overall unremarkable, x1 5mm indeterminate lung nodule and calcified granulomas. Repeat TCD negative. Will work to obtain OSHecho images to ensure there was no prior mass seen. Continue neuro checks with VS monitoring. Continue goals for normotension, normothermia, eunatremia- goal 135-145, and euglycemia: BG <180. The pt remains on ASA 325mg daily and DVT ppx - SQH [id number]. 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 Seems mostly good control at home. Will cont to monitor BGcontrol on current regimen. Appreciate endocrinology recs/assistance as needed. - glargine 18u qam - nutritional insulin 1u:10 carbs - LDSSI w/ meals + qhs - Consult to glycemic control given elevations today and to simplify regimen given cog deficits. CHRONIC // RESOLVED // STABLE: #Chronic Moderate-Large Pericardial Effusion #Chronic Bilateral Pleural Effusion TTE redmonstrated pericardial effusion and pleural effusion which have been present for >2 yearsbased on chart review. Cardiology not concerned and no s/sx of hemodynamic compromise or tamponade.Plan for further monitor outpatient w/ his rn trauma. - outpatient f/u and eval #ARNAV - Unclear baseline sCr - though prior Cr 1.1 a year ago. Cr 1.32 on admission, now 1.15 on 02/27/22. #HLD - rosuvastatin 5mg #Rheumatoid Arthritis Patient does not endorse any arthritic pain or flare-up episode. To maintain optimal immunosuppression, restarted home RA meds. - continue sulfasalazine and hydroxychloroquine #Asthma, stable - uses fluticasone/salmetrol at home - duoneb prn ordered Inpatient Checklist: Fluids/Electrolytes/Nutrition: Diabetic diet Prophylaxis: SQH q12h Lines/Drains/Airways: pIV Disposition: Neurology acute care Code Status: FULL Contacts: Liyah Lopez - - [phone] GENERAL HEALTH MANAGEMENT Diet: Adult Diet Regular; Carbohydrate managed Bowel Status: Spontaneous, continent Bladder Status: Spontaneous, continent DVT Prophylaxis: SubQ hep Estimated Length of Stay: 10-14 Discharge Location: Home ANTICIPATED FOLLOW-UP AFTER DISCHARGE Rehab Medicine within 1 month after discharge Primary Care Physician within 1 weeks after discharge Therapies: To be determined On discharge, the patient will need the following follow up: - endocrinology - PCP - stroke clinic - cardiology to follow up the cardiac event monitor Associated attestation - Souleymane Park DO - 08/29/2022 4:08 PM PDT Date of Service: 08/29/22 I saw and evaluated the patient. I have reviewed the resident(s)'s/fellow(s)'s documentation and agree. * Lida Storm SLPS - 08/28/2022 4:24 PM PDT 08/28/22 1115 [employer] Last Visit [employer] Received On 08/28/22 General [employer] Document Type Eval [employer] Total Treatement Time in Minutes 45 Minutes Visual Acuity Corrective lenses (reading) Auditory Acuity Functional in conversation Family/Caregiver Present No Therapy Minutes (IP Rehab Only) [employer] Individual 45 Subjective Patient Report/Self-Assessment Pt asleep on entry, woken up by dtr. Agreeable to session. Patient Stated Goal none stated Auditory Comprehension Auditory Comprehension Impaired Formal Assessments BDAE BDAE Complex Ideation Material Score +3/4 Non Egocentric Yes/No Questions 90-95% accuracy Answering Simple Questions in Conversation WFL Answering Complex Questions in Conversation Impaired Observations Observed slow processing speed. Benefited from increased time to answer questions. Reading Comprehension Reading Comprehension Impaired Formal Assessments BDAE Sentences and Paragraphs BDAE Sentences and Paragraphs 50% accuracy in BDAE Sentences and Paragraphs with noted difficultly as length and complexity increased. Verbal Expression Verbal Expression Impaired Formal Assessments [place] Naming Test [place] Naming Test +24/60. For pts age 70-79, <3rd %ile. Not standardized due to age 82. Increased to +31/60 with phonemic cues. Verbal Expression Characteristics Word finding deficits;Slowed verbal organization;Semantic paraphasic errors;Anomia;Perseveration Pragmatic Language Impairment Topic Initiation;Other (Comment) (Reduced verbal output) Speech Voice Speech Voice Impaired Vocal Quality Hoarse/harsh (mild) Intelligibility 90-100% Memory Memory Impaired Formal Assessments RBANS story memory;RBANS story recall;3 word recall RBANS story memory +5/24 (<1st %ile) RBANS story recall +0/12 (<1st %ile) (Did not recall story with increased processing time, cues to story content.) 3 word recall, Immediate +3/3 3 word recall, Delayed +0/3 3 word recall, Delayed (with cues) +1/3 Problem Solving/Reasoning Problem Solving Further assessment indicated Observations Pt w bed alarm for fall prevention Executive Functions Executive Function Further assessment indicated Executive Function Impairments Insight;Task initiation;Mental flexibility;Processing speed;Error awareness Visual Perception Visual Perception Further assessment indicated Observations Able to accurately read large text sentences Orientation Orientation Impaired Oriented To Day;Month;Year;Person (i'ly ID day, thu, yr once cued to reference calendar) [employer] Assessment Assessment Kendall was seen for a cognitive-communication evaluation today. He presents with moderate cognitive-communication deficits characterized by primary impairments in expressive and receptive language and memory, as well as impairments in executive functions and processing speed. Given his medical hitory of multiple CVAs and age, he has a fair prognosis. Recommend assistance with communication-based tasks, iADLs, and ongoing [employer] services. [employer] Assessment Results Cognitive communication impairment;Aphasia Cognitive Communication Impairment Moderate Aphasia Mild Impact on Function Reduced ability to recall important information;Reduced ability to follow safetyprecautions;Reduced ability to understand and participate in higher level conversations Prognosis Fair Evaluation/Treatment Tolerance Patient tolerated treatment well Plan [employer] Plan Skilled [employer] Treatment/Interventions Cognitive communication treatment;Speech/language/voice treatment;Patient/family education [employer] Frequency 5-6 days/week, 1-2x/day [employer] Discharge Recommendations Follow up with [employer] at next level of care Goals STG 1;STG 2;STG - Education;LTG - Education;LTG 1;LTG 1 - Free Text;LTG 2 - Free Text Cognitive Communication Recommendations Cognitive Communication Recommendations Allow patient breaks as needed;Follow consistent routine asable;Reduce external stimuli (TV, smart phone, electronic devices, number of visitors) Communication Recommendations Allow automatic function as able;Make sure you have patient's attention before speaking to them;Keep verbal input short, simple, direct;Give patient extra time to respond and speak;Try asking simple yes/no questions Short Term Goal Short Term Goal Participate in further evaluation to determine appropriate treatment goals Estimated Completion Date 09/03/22 Goal Status Updated Short Term Goal Short Term Goal Participate in development and trials of external memory aids Estimated Completion Date 09/03/22 Goal Status Updated Short Term Goal - Education Patient/caregiver will participate in education regarding Dysphagia;Aphasia;Cognition;CVA Estimated Completion Date 09/03/22 Goal Status Updated Discharge Goal - Education Patient/caregiver will participate in education regarding Dysphagia;Aphasia;Cognition;CVA Discharge Goal - Free Text Goal Pt will utilize compensatory strategies for memory in functional tasks with 80% accuracy Discharge Goal - Free Text Goal Pt will utilize word finding strategies in converstaion w minimum verbal cueing I have reviewed the documentation of this visit and I confirm that I was present for the entire session and not engaged in other tasks. I directed / guided the services and am responsible for the assessment and treatment of this patient in this visit. - Juanjose Boyer MS, CCC-[employer] * Maria G Samayoa, ISIDORO - 08/28/2022 4:01 PM PDT [employer] Progress- Discharge Planning Note Visit Information Admission diagnosis: Cerebrovascular accident (CVA) of left basal ganglia (HCC) Expected Discharge Date: Discharge Plan: Insurance Information MEDICARE/MEDICARE PART A AND B Subscriber: Kendall Lopez Subscriber#: [id number] Group#: -- Precert#: -- [facility] AARP MEDICARE SUPPLEMENT Subscriber: Kendall Lopez Subscriber#: [id number] Group#: -- Precert#: -- Primary Care Provider/Care Team: Primary Care Provider: Patient Care Team: Cici Jones MD as PCP - General (Internal Medicine) -Patient provided [employer] permission to coordinate hospital discharge appointment, pending community discharge Contact(s) preferred for Weekly Conferences: Liyah Lopez Relation: Preferred Pharmacy for discharge medications: [facility]/Discharge Pharmacy Interventions: [employer] Welcome- I have met with the patient, introduced myself and my role as healthcare representative, and outlined general expectations for the rehabilitation program. The Rehab notebook in general and the specifics of each section have been reviewed, including the initial number of days authorized. Weekly Conferences were explained along with patient/family participation. Insurance information provided The CMS Privacy Act Statement-Health Records was issued and I reviewed the Data Collection Information Summary sheet. 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 No PT Daily Recommendations PT IRF Daily Recommendations Meng for transfers and CGA-Meng for walking with FWW. Community Level 0 Therapeutic Activity Therapeutic Activity Time Entry 35 Therapeutic Activity 1 PT administered Jarrell, 5x and 30 x sit to stand tests Therapeutic Activity 2 Re-assessment of more detailed MMTing Therapeutic Activity 3 Sit to stand transfer practice Therapeutic Activity 4 Walking with FWW with CGA and with cues for attending to R senior sales director Balance/Neuromuscular Re-Education Neuromuscular Re-Education Time Entry 10 Balance/Neuromuscular Re-Education Activity 1 Standing balance challenges with CGA-Meng and activities including narrow JIGAR, EC, weightshifting * Nacho Valle, PT - 08/28/2022 3:40 PM PDT Physical Therapy Physical Therapy Evaluation Patient Name: Kendall Lopez Today's Date: 08/28/2022 Time Intensity General PT Documentation Type: Initial Eval PT Treatment Start Time: 834 Treatment End Time: 924 PT Individual: 50 General Visit Information PT Diagnosis: 82 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 No past surgical history on file. Subjective Subjective Patient Report/Self-Assessment: He reports that his Left shoulder issues were present prior. Patient Stated Goal(s): To be able to get back home and to walk independently Home Living Home Living Home Living Comments: He lives in [place] Type of Home: [facility] Entry Stairs: 3 KAREN with rails Indoor Stairs: 1 flight with rails Lives With: Spouse Assistance Available at Home : 24 hour assistance Mobility Equipment Owned: Other;Four wheeled walker or rollator (Walking stick) Prior Level of Function Prior Function Prior Level of Function : per spouse, after CVA in June was using 4ww and walking sticks, recently, pt had been amb without AD for about a week (~08/12), pt was going to outpatient PT prior to admission; not driving 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 Some anterior and posterior GH joint pain with endrange shoulder ER andelevation Cognition Cognition Overall Cognitive Status: Impaired Alertness: Appropriate responses to stimuli Orientation Level: Other (Comment) (Communicatio impairment limits, Not oriented to date or day. Oriented to name and birthdate, place and situation.) Extremity Assessments Right Upper Extremity RUE Assessment RUE Assessment: Within Functional Limits Left Upper Extremity LUE Assessment LUE Assessment: Exceptions to WFL LUE ROM (degrees) L Shoulder Flexion: 120 L Shoulder Extension: NT L Shoulder ABduction: 90 L Shoulder Internal Rotation : 45 L Shoulder External Rotation: 35 L Wrist Flexion: NT L Wrist Extension: NT LUE ROM Comments: L shoulder ROM limited by pain, tight endfeel LUE Strength L Shoulder Flexion: 4/5 L Shoulder ABduction: 5/5 L Shoulder Internal Rotation: 5/5 L Shoulder External Rotation: 4/5 L Elbow Flexion: 5/5 L Elbow Extension: 3-/5 LUE Strength Comments: Strength testing limited at shoulder per pain and weakness, also not able tomove actively through full elevation ROM Right Lower Extremity RLE Assessment RLE Assessment: Exceptions to WFL ROM RLE (degrees) RLE ROM Comments: LE ROM grossly WNL RLE Strength R Hip Flexion: 5/5 R Hip Extension: 5/5 R Hip ABduction: 3+/5 R Knee Flexion: 5/5 R Knee Extension: 5/5 R Ankle Dorsiflexion: 4/5 RLE Strength Comments: LE strength screening only, hip abduction, extension needs further assessment Left Lower Extremity LLE Strength L Hip Flexion: 5/5 L Hip Extension: 4-/5 L Hip ABduction: 3+/5 L Knee Flexion: 5/5 L Knee Extension: 5/5 L Ankle Dorsiflexion: 4/5 LLE Strength Comments: LE strength screening only, hip abduction, extension needs further assessment Tone Tone Right Upper Extremity Tone: Within Functional Limits Sensation and Proprioception Sensation Light Touch: No apparent deficits Sensation Comments: He reports B feet are always partially tingly Proprioception Proprioception: Partial deficits in the LLE Proprioception Comments: R great toe WNL, L great toe less able to discern direction Coordination Coordination Coordination and Movement Description: Slow movements noted during testing but no gross coordination impairments noted with FTN, TONG at B UE and LE Perception Skin/Integumentary Skin/Integumentary: grossly WNL Vision/Vestibular/Occulomotor Vision Visual Acuity Details: Wears glasses Balance Static Sitting Balance Static Sitting Balance Level of Assistance: Independent Static Sitting Balance Comments: Able to sit with and without UE support Dynamic Sitting Balance Dynamic Sitting Balance Level of Assistance: Supervision / Stand by assistance Dynamic Sitting Balance Comments: Able to lean further towards the right than the left. Able to lean minimally and still control balance towads the left, but he notes that he's not comfortable doing so compared to the right Static Standing Balance Static Standing Balance Level of Assistance: Contact guard assist (touching/steadying assistance) Static Standing Balance Comments: Able to stand with and without UE support, increased sway with ECand with feet together leading to some instability on firm surfaces Dynamic Standing Balance Dynamic Standing Balance Level of Assistance: Minimum Assist (less than 25% help needed) Dynamic Standing Balance Comments: Able to manage minimal perturbations through the trunk Activity Tolerance Activity Tolerance / Endurance Activity Tolerance /Endurance: Tolerates 30+ min of activity without fatigue Functional Mobility Bed Mobility Rolling Left: Independent Rolling Right: Independent Supine to Sit: Supervision / Stand by assistance Sit to Supine: Supervision / Stand by assistance Transfers Sit<>Stand: Minimum Assist (less than 25% help needed) Bed<>Chair/WC: Minimum Assist (less than 25% help needed) Car Transfer: Minimum Assist (less than 25% help needed) Floor Recovery: Other (Comment) (Not tested for safety reasons) Picking Up an Object: Contact guard assist (touching/steadying assistance) Wheelchair Activities WC Size: N/A Ambulation Distance: Able to walk on level terrain with FWW with CGA up to 150 feet Level of Assistance : Contact guard assist (touching/steadying assistance) Assistive Device Used: Front wheeled walker Gait quality/descriptors: Flexed posture;Decreased foot clearance;Decreased step length;Decreased pace 10 feet: Contact guard assist (touching/steadying assistance) 50 feet 2 turns: Contact guard assist (touching/steadying assistance) 150 feet: Contact guard assist (touching/steadying assistance) Uneven Terrain: Other (Comment) (Not tested for safety reasons) Stairs Number of steps: 4 Level of Assistance : Contact guard assist (touching/steadying assistance) Style: Step to Assistive Device Used: 2 railings 4 Steps: Contact guard assist (touching/steadying assistance) 12 Steps: Contact guard assist (touching/steadying assistance) Curb Curb Assessment: Minimum Assist (less than 25% help needed) Curb Comments: Using FWW Outcome Measures Jarrell Balance Scale 1. Sitting to Standing: Able to stand independently using hands 2. Standing Unsupported: Able to stand safely for 2 minutes 3. Sitting with Back Unsupported but Feet Supported on Floor or on a Stool: Able to sit 2 minutes under supervision 4. Standing to Sitting: Sits safely with minimal use of hands 5. Transfers: Able to transfer with verbal cueing and/or supervision 6. Standing Unsupported with Eyes Closed: Able to stand 10 seconds with supervision 7. Standing Unsupported with Feet Together: Able to place feet together independently and stand 1 minute with supervision 8. Reach Forward with Outstretched Arm While Standing: Can reach forward 5 cm (2 inches) 9. Fabricator Special Items Object from Floor from a Standing Position: Able to pickling operator slipper but needs supervision 10. Turning to Look Behind Over Left and Right Shoulders While Standing: Turns sideways only but maintains balance 11. Turn 360 Degrees: Needs close supervision or verbal cueing 12. Place Alternate Foot on Step or Stool While Standing Unsupported: Needs assistance to keep fromfalling/unable to try 13. Standing Unsupported One Foot in Front: Able to take small step independently and hold 30 seconds 14. Standing on One Leg: Unable to try needs assist to prevent fall Jarrell Balance Score: 32 Timed Up and Go Test Trial 1 - How many seconds did it take to complete the tasks?: 1.48 seconds Trial 2 - How many seconds did it take to complete the tasks?: 2.44 seconds TUG Trials Average (seconds):: 1.96 seconds Comment: Using FWW 30 Second Sit to Stand Number of times performed sit to stand (30 seconds): 4x 5x Sit to Stand Five time sit to stand: 33 Seconds 10 Meter Walk Test How many seconds did it take to complete 10 meters?: 21.07 seconds Comments:: Using FWW Treatment Other Activity Other Activity Time Entry: 50 Other Activity 1: Moderately complex PT evaluation completed Assessment Kendall demonstrates impairments in the following objective measures; 10 meter velocity walking speed,TUG, Jarrell Balance Assessment, 5 x sit to stand and 30 second sit to stand. PT Assessment PT Impairments: Decreased strength;Decreased range of motion;Impaired balance;Decreased mobility;Decreased cognition;Impaired tone;Difficulty ambulating PT Assessment / Impact on Function: Kendall presents to rehab significantly functioning below his baseline level of independence with transfers out of bed, with walking, with household and community mobility and stair management. Prognosis: Good Barriers to Discharge: Stairs into his home PT IRF Daily Recommendations: Meng for transfers and walking with FWW. Community Level 0 Plan Plan Treatment/Interventions: Therapeutic exercise;Therapeutic functional activities;Neuromuscular re-education;Gait/Stairs training;Patient/family training;Equipment eval/education PT Dosage: 1-2x/day, 5-6 days/week Recommended Length of Stay: 10 days PT Discharge Recommendations: Outpatient PT PT Assistance Recommendations: Mobility Goals Bed Mobility Goal Details: Independent supine to sit STG Estimated Completion Date: 09/02/22 Goal Details: Independent bed mobility LTG Time Frame: By discharge Transfers Goal Details: SBA sit to stand with AD as needed STG Estimated Completion Date: 09/02/22 Goal Details: Independent sit to stand with LRAD LTG Time Frame: By discharge Indoor Ambulation Goal Details: Able to walk 150 feet with LRAD and CGA STG Estimated Completion Date: 09/02/22 Goal Details: Independent household mobility with LRAD LTG Time Frame: By discharge Outdoor Ambulation Goal Details: Able to negotiate a ramp and basic non-level terrain with LRAD and CGA STG Estimated Completion Date: 09/02/22 Goal Details: Able to negotiate a ramp and basic non-level terrain with LRAD and SBA LTG Time Frame: By discharge Stairs Goal Details: Able to negotiate up and down 12 steps with one rail with SBA LTG Time Frame: By discharge Floor Recovery Goal Details: Able to manage floor recovery with a transitional surface and SBA LTG Time Frame: By discharge Nacho Valle, PT 08/28/2022 * Shira Ruiz, OT - 08/28/2022 2:23 PM PDT Occupational Therapy Evaluation and Treatment Note Patient Name: Kendall Lopez Preferred name: Kendall Lopez Today's Date: 08/28/2022 General Visit Information OT Diagnosis: Kendall Lopez is an 82 year-old RHD male with history of HTN, HLD, T1DM, RA on immunosuppression who presented to an OSH with AMS/aphasia, found to have 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 OT Consideration: Decreased memory, dec insight into safety, bed alarm No diagnosis found. No past medical history on file. No past surgical history on file. Time Intensity Document Type: Initial Eval Family/Caregiver Present: Yes (daughter present at the end of the session) OT Treatment START Time: 944 Treatment End Time: 1029 OT Individual: 45 [employer] Is an child and adolescent psychologist used?: No Subjective Patient Report/Self-Assessment: patient alert and agreeable to OT Home Living & Prior function Home Living Type of Home: Multilevel home Entry Stairs: 3 KAREN Indoor Stairs: 1 FOS Lives With: Spouse Bathroom Shower/Tub: Walk-in shower Bathroom Toilet: Standard Mobility Equipment Owned: Four wheeled walker or rollator Durable Medical Equipment Owned: Shower chair with back Prior Function BADLs: Requires assist (since stroke in June) IADLs: Independent (prior to stroke in June per pt report; unable to elaborate on whether he needed any assistance with ADLs/iADLs since prior stroke in June) Functional Mobility: Independent 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 Leisure and Hobbies: photography, bird watching Responsibilities: Driving Skin/Integumentary Skin/Integumentary Skin/Integumentary: Grossly intact, IV to B forearms Edema Edema Edema: Within Functional Limits Extremity Assessments RUE Assessment RUE Assessment: Exceptions to WFL RUE Assessment Comments: baseline limitations from arthritis; wrist limited to neutral d/t arthritis; ROM grossly WFL, limited in shoulder flexion to roughly 140 deg RUE Strength R Shoulder Flexion: 3-/5 R Shoulder Extension: 3+/5 R Elbow Flexion: 4-/5 R Elbow Extension: 4-/5 RUE Tone RUE Assessment Comments: baseline limitations from arthritis; wrist limited to neutral d/t arthritis; ROM grossly WFL, limited in shoulder flexion to roughly 140 deg Right Hand Assessment Right Hand Assessment: Exceptions to WFL LUE Assessment LUE Assessment: Exceptions to WFL LUE Strength L Shoulder Flexion: 3-/5 L Shoulder Extension: 3+/5 L Elbow Flexion: 3+/5 L Elbow Extension: 3+/5 Hand Function Right Special Education Coordinator Strength: 28.6 Left Special Education Coordinator Strength: 25 RLE Assessment RLE Assessment: Exceptions to WFL (see PT note for details) LLE Assessment LLE Assessment: Exceptions to WFL (see PT note for details) Coordination Coordination Movements are Fluid and Coordinated: No Upper Extremities: Finger to Nose, Rapid alternating movement, Sequential finger opposition, 9 HolePeg test, Box and Blocks Finger to Nose- Right: Within Functional Limits Finger to Nose- Left: Within Functional Limits Upper Extremities TONG- Right: Impaired Upper Extremities TONG- Left: Impaired Sequential finger opposition- Right: Impaired Sequential finger opposition- Left: Impaired Upper Extremities 9 Hole Peg Test right (seconds): 45 Seconds Upper Extremities 9 Hole Peg Test left (seconds): 48 Seconds Upper Extremities Box and Blocks right: 30 Upper Extremities Box and Blocks left: 32 Coordination and Movement Description: Baseline deficits from arthritis however reports noted increase in difficulty Sensation Sensation Sensation comments: patient reports numbness/tingling throughout all extremities however appears torespond appropriately to tactile stimulation consistently Proprioception Proprioception Right upper extremity: Intact Left upper extremity: Intact Vision Vision Vision Comments: Patient wears glasses, denies changes in vision however may benefit from vision screen Perception Perception Inattention/Neglect: Cues to attend right visual field, Cues to attend left visual field Initiation: Appears intact Motor Planning: Appears intact Perseveration: Not present Cognition Cognition Overall Cognitive Status: Impaired Arousal/Alertness: Delayed responses to stimuli Orientation Level: Oriented to person, Disoriented to time Following Commands: Follows one step commands with repetition Communication : Patient communicating verbally Safety Judgment: Decreased awareness of need for safety, Decreased awareness of need for assistance Awareness of Errors: Decreased awareness of errors Deficits: Decreased awareness of deficits Attention Span: Difficulty attending to directions, Difficulty dividing attention Memory: Decreased short term memory, Decreased recall of recent events Problem Solving: Assistance required to identify errors made, Assistance required to generate solutions Executive Functions: Decreased insight into deficits Self-Care/Home Management Time Entry (min): 10 Minutes Eating: Supervision / Stand by assistance Eating Comments: 1:1 feed per [employer] recommendations Grooming: Minimum Assist (less than 25% help needed) Grooming Comments: standing at sink Oral Hygiene: Minimum Assist (less than 25% help needed) Oral Hygiene Comments: standing at sink Upper Body Dressing: Minimum Assist (less than 25% help needed) UE Dressing Comments: seated at EOB, cues for sequencing (patient intially donning shirt over gown) Lower Body Dressing: Moderate Assist (between 25-49% help needed) LE Dressing Comments: seated on EOB, assist to thread BLE Putting on/taking off footwear: Minimum Assist (less than 25% help needed) Putting on/taking off footwear Comment: to doff tennis shoes seated at EOB Toileting: Minimum Assist (less than 25% help needed) Toileting Comments: standing at toilet to void bladder Bathing: Other (Comment) Bathing Comments: did not assess at this time Balance Static Sitting Level of Assistance: Supervision / Stand by assistance Static Sitting Balance Comment: seated EOB Dynamic Sitting Balance Level of Assistance: Contact guard assist (touching/steadying assistance) Dynamic Sitting Balance Comment: seated EOB Static Standing Balance Level of Assistance: Contact guard assist (touching/steadying assistance) Static Standing Balance Comment: FWW Dynamic Standing Balance Level of Assistance : Minimum Assist (less than 25% help needed) Dynamic Standing-Comment: FWW Mobility Rolling Left: Supervision / Stand by assistance Rolling Right: Supervision / Stand by assistance Supine>Sit: Contact guard assist (touching/steadying assistance) Sit>Supine: Contact guard assist (touching/steadying assistance) Sit<>Stand: Contact guard assist (touching/steadying assistance) Sit <> Stand Comments: FWW Toilet Transfer: Contact guard assist (touching/steadying assistance) Toilet Transfers Comments: FWW Distance: room <> therapy gym Assistance Needs: Minimum Assist (less than 25% help needed) Functional Mobility Assistive Device Details: Front wheeled walker Functional Mobility Comments: consistent cues to maintain full upright posture Activity Tolerance Activity Tolerance Endurance: Tolerates 30 min of activity with multiple rests Assistive Technology Assistive Technology Hospital based AT needs: Other (Comment) (standard call light) Treatment Self-Care/Home Management Time Entry (min): 10 Minutes Bed Mobility Rolling Left: Supervision / Stand by assistance Rolling Right: Supervision / Stand by assistance Supine>Sit: Contact guard assist (touching/steadying assistance) Sit>Supine: Contact guard assist (touching/steadying assistance) Transfers Sit<>Stand: Contact guard assist (touching/steadying assistance) Sit <> Stand Comments: FWW Toilet Transfer: Contact guard assist (touching/steadying assistance) Toilet Transfers Comments: FWW Functional Mobility Distance: room <> therapy gym Assistance Needs: Minimum Assist (less than 25% help needed) Functional Mobility Assistive Device Details: Front wheeled walker Functional Mobility Comments: consistent cues to maintain full upright posture Therapeutic Activity Therapeutic Activity Time Entry: 35 Therapeutic Activity 1: FMC, GMC, and senior sales director strength testing completed, see eval note for details OT Activities Total time minutes Total Exercise/Activity Time Rows: 45 Assessment OT Assessment OT Assessment Results: Impaired ADL status, Impaired functional mobility, Impaired upper extremity strength, Impaired lower extremity strength, Impaired balance, Impaired safety and/or judgement during ADL's, Impaired cognition, Decreased endurance/activity tolerated, Impaired sensation, Impaired fine motor coordination, Impaired gross motor coordination, Impaired IADL's Impact on Function and Participation: Kendall's injury has impacted 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 Prior to this hospital admission and stroke in June, Kendall was independent with all aspects of daily life. Kendall will benefit from skilled OT to increase independence and safety with ADLs, IADLs, and functional mobility. Pt expected LOS 10-14 days Functional Prognosis: Fair Evaluation/Treatment Tolerance: Patient tolerated treatment well OT Daily Recommendations: Showers MWF, toileting with mod A to toilet, ambulating with FWW and CGA-min A Plan Plan Treatment Interventions: Self-care/Home management, Caregiver education/training, Therapeutic exercise, Therapeutic activities, Neuromuscular re-education, Cognitive skills development, Manual therapy techniques, Modalities, Sensory integration OT Plan: Skilled OT OT Frequency: 1-2x/day, 5-6 days/week Estimated length of stay: 10-14 days OT Discharge Recommendations: Follow up with OT at next level of care Assistance with : ADLs, IADLs, functional mobility Supervision with : ADLs Equipment Recommended: Shower seat with back Goals: Inpatient Rehab Goals Feeding Discharge Goal Level of Assist: Independent Grooming STG Time Frame: 09/03 STG Level of Assist: Contact guard assist (touching/steadying assistance) Discharge Goal Level of Assist: Independent Upper Body Dressing STG Time Frame: 09/03 STG Level of Assist: Contact guard assist (touching/steadying assistance) Discharge Goal Level of Assist: Independent Lower Body Dressing STG Time Frame: 09/03 STG Level of Assist: Minimum Assist (less than 25% help needed) Discharge Goal Details: from bed level Discharge Goal Level of Assist: Independent Bathing Discharge Goal Level of Assist: Supervision / Stand by assistance Toileting Discharge Goal Level of Assist: Supervision / Stand by assistance Toilet Transfers Discharge Goal Level of Assist: Supervision / Stand by assistance Tub/Shower Transfers Discharge Goal Level of Assist: Supervision / Stand by assistance Discharge Goal Time Frame Discharge goals completed by: 10-14 days GABRIELLA Stanley 08/28/2022 * Paul Stanford MD - 08/28/2022 2:09 PM PDT Rehabilitation Medicine Progress Note Kendall Lopez (Kendall) - : 1940 (82 year old male) PCP: Cici Jones MD Code Status: Full Code CHIEF CONCERN / IDENTIFICATION: Kendall Lopez is an 82 year-old RHD male with history of HTN, HLD, T1DM, RA on immunosuppression who presented to an OSH with AMS/aphasia, found to have 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 SUBJECTIVE No AEON Slept well, bowel/bladder okay No concerns today MEDICATIONS: Scheduled medications: aspirin, 325 mg, Oral, Daily heparin, 5,000 units, Subcutaneous, q12h ASTRID hydroxychloroquine, 200 mg, Oral, BID insulin GLARGINE, 18 units, Subcutaneous, q AM insulin LISPRO, 0-4 units, Subcutaneous, q HS insulin LISPRO, 0-5 units, Subcutaneous, TID before meals insulin LISPRO, , Subcutaneous, TID before meals rosuvastatin, 5 mg, Oral, Daily senna, 17.6 mg, Oral, BID sulfaSALAzine, 1,000 mg, Oral, BID PRN medications: PRN medications: acetaminophen, dextrose, dextrose, glucagon, glucagon, ipratropium-albuterol, labetalol, melatonin, ondansetron OBJECTIVE T: 36.4 ??C (08/27/222037) BP: 116/84 (08/27/222037) HR: 80 (08/27/222037) RR: 16 (08/27/222037) SpO2: 95 % (08/27/222037) Room air Vitals (Most recent in last 24 hrs) T: 36.4 ??C (08/28/22745) BP: 123/69 (08/28/22745) HR: 82 (08/28/22745) RR: 16 (08/28/22745) SpO2: 96 % (08/28/22745) Room air T range: Temp Min: 36.4 ??C Max: 36.7 ??C Wt 153 lb (69.4 kg) Ht 5' 11 (1.803 m) Body mass index is 21.34 kg/m??. Physical Exam: General: no acute distress, resting comfortably HEENT: normocephalic [place]adi[place]: extremities warm and well perfused Pulmonary: nonlabored breathing on room air Abdomen: nondistended Neuro: alert and awake Rapid alternating movements with dysdiadokinesia. Able to recall 0/3 words, 1/3 words with cueing LABS: Labs (last 24 hours): Chemistries CBC LFT Gases, other - - - 325 - AST: - ALT: - -/-/-/- -/-/-/- - - - - >< - AP: - T bili: - Lact (a): - Lact (v): - eGFR: - Ca: - - Prot: - Alb: - Trop I: - D-dimer: - Mg: - PO4: - ANC: - BNP: - Anti-Xa: - ALC: - INR: - ADDITIONAL RESULTS/IMAGING: MICRO: I have personally reviewed the latest Micro results and cultures IMAGING: I have reviewed the latest radiology results PATHOLOGY: I have reviewed the latest pathology results ASSESSMENT/PLAN Kendall Lopez is an 82 year-old RHD male with history of HTN, HLD, T1DM, RA on immunosuppression who presented to an OSH with AMS/aphasia, found to have 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 Now medically stable and admitted to [facility] on 08/27/22 for intensive PT, OT, speech therapy. 08/28/22 - elevated sugars this AM, checks were not made until during breakfast causing increased elevations. Now synced up checking sugars prior to meals. Also gave 10u extra lispro. No AMS, no increased thirst. Sugars downtrending now. Glycemic control consulted. - KRYSTA ordered per neuro/cardio #Rehabilitation plan for ischemic infarct - Continue comprehensive inpatient rehabilitation care including medicine, nursing, physical therapy, occupational therapy, speech therapy, recreational therapy and rehabilitation psychology. Memory Memory is challenge especially antegrade Speech Word-finding expressive aphasia noted Agitation None currently Pain No concerns at this time Sleep No concerns at this time 8. Bowel/Bladder a. No concerns at this time 9. Nutrition a. 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 History of old right frontalinfarct, subacute right centrum semioval infarct. Acute/subacute ischemic infarcts in bilateral hemispheres in multiple territories with unknown etiology, currently undergoing extensive workup for feng rce. TTE was negative for atrial mass, which was initial suspicion for a cardioembolic source. Blood cx NGTD and no s/sx of infection, making infective endocarditis very unlikely currently. MRI blackblood had findings most consistent with atherosclerotic changes, with no evidence of vasculitis or other inflammatory process, r/o RA vasculitis. APS labs negative. CT C/A/P overall unremarkable, x1 5mm indeterminate lung nodule and calcified granulomas. Repeat TCD negative. Will work to obtain OSHecho images to ensure there was no prior mass seen. Continue neuro checks with VS monitoring. Continue goals for normotension, normothermia, eunatremia- goal 135-145, and euglycemia: BG <180. The pt remains on ASA 325mg daily and DVT ppx - SQH [id number]. 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 Seems mostly good control at home. Will cont to monitor BGcontrol on current regimen. Appreciate endocrinology recs/assistance as needed. - glargine 18u qam - nutritional insulin 1u:10 carbs - LDSSI w/ meals + qhs - Consult to glycemic control given elevations today and to simplify regimen given cog deficits. CHRONIC // RESOLVED // STABLE: #Chronic Moderate-Large Pericardial Effusion #Chronic Bilateral Pleural Effusion TTE redmonstrated pericardial effusion and pleural effusion which have been present for >2 yearsbased on chart review. Cardiology not concerned and no s/sx of hemodynamic compromise or tamponade.Plan for further monitor outpatient w/ his rn trauma. - outpatient f/u and eval #ARNAV - Unclear baseline sCr - though prior Cr 1.1 a year ago. Cr 1.32 on admission, now 1.15 on 02/27/22. #HLD - rosuvastatin 5mg #Rheumatoid Arthritis Patient does not endorse any arthritic pain or flare-up episode. To maintain optimal immunosuppression, restarted home RA meds. - continue sulfasalazine and hydroxychloroquine #Asthma, stable - uses fluticasone/salmetrol at home - duoneb prn ordered Inpatient Checklist: Fluids/Electrolytes/Nutrition: Diabetic diet Prophylaxis: SQH q12h Lines/Drains/Airways: pIV Disposition: Neurology acute care Code Status: FULL Contacts: Liyah Lopez - - [phone] GENERAL HEALTH MANAGEMENT Diet: Adult Diet Regular; Carbohydrate managed Bowel Status: Spontaneous, continent Bladder Status: Spontaneous, continent DVT Prophylaxis: SubQ hep Estimated Length of Stay: 10-14 Discharge Location: Home ANTICIPATED FOLLOW-UP AFTER DISCHARGE Rehab Medicine within 1 month after discharge Primary Care Physician within 1 weeks after discharge Therapies: To be determined On discharge, the patient will need the following follow up: - endocrinology - PCP - stroke clinic - cardiology to follow up the cardiac event monitor Associated attestation - Souleymane Park DO - 08/28/2022 5:07 PM PDT Date of Service: 08/28/22 I saw and evaluated the patient. I have reviewed the resident(s)'s/fellow(s)'s documentation and agree. Recommend barrier cream to right groin erythema, monitoring for fungal infection. Follow-up on anterior left lower abdomen dry patch. Per patient, he had negative melanoma result after procedure to that spot which has been there for 10 years. * Ellie Webber, SIGNAL HELPER - 08/28/2022 11:28 AM PDT TR INITIAL ASSESSMENT Patient Name: Kendall Lopez Preferred Name: Kendall Lopez 1940, 82 year old, male Preferred Pronoun: he / his Today's Date: 08/28/2022 SUMMARY No diagnosis found. Patient Active Problem List Diagnosis Acute cerebral infarction (HCC) Cerebrovascular accident (CVA) of left basal ganglia (HCC) PRECAUTIONS Review of patient's allergies indicates: Allergies Allergen Reactions Shellfish-Derived Products GI:Nausea/vomiting Fall Bed alarm Comm Cog 08/28/22 1030 General Documentation Type Intitial Eval Is an child and adolescent psychologist used? 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) Physical Impairments/Barriers Physical Impairments/Barriers Mobility;Swallow;Range of motion;Strength;Coordination;Activity tolerance;Balance Cognitive Impairments/Barriers Cognitive Impairments/Barriers Safety awareness;Memory Social Impairments/Barriers Social Impairments/Barriers Communications Emotional/Behavioral Impairments/Barriers Emotional/Behavioral Impairments/Barriers Adjustment to injury/hospitalization Leisure Impairments/Barriers Leisure Impairments/Barriers Adaptive awareness;Cognitive impairment;Social/emotional adjustment/coping Strengths Additional Comments Pt stated goal To get from point A to point B. Plan Targeted Treatment/Interventions Community Integration Outing;Community Planning;Community Safety Eval;Transportation;Leisure Education;Caregiver Training Frequency 1-2x/week * Mamta Branham LSWAIC - 08/28/2022 10:05 AM PDT Social Work Psychosocial Assessment Visit Information Unit: [facility] 20 Service: REHAB MEDICINE BLUE 1 Admission diagnosis: Cerebrovascular accident (CVA) of left basal ganglia (HCC) Inpatient admission date: 08/27/2022 Is this a readmission (within 30 days)? No General Information dobie worker on Treatment Team: Mamta Branham LSWAIC Identifying data/reason for referral: Discharge planning Language: Bulgarian President & Ceo: No Information obtained from: Information Obtained From: Patient;Medical Personnel;Medical Record Social History: Living situation prior to admit: Pt lives in [place] with his . Home is single story. Home;Spouse/Significant other Support system: Support Systems: Spouse/significant other;Children;Family members;Friends/neighbors Social History Physical / Cognitive / Functioning History: Per chart: At baseline pt is independent with ADL/iADL's although has been recovering from a recent stroke. Pt's , Lyiah, reports most recently pt was able to ambulate from car to grocery store without assistive device and completed his own groomingtasks independently but slowly. Social Family History: Pt lives with his in [place]. Pt has two adult children: Gulshan Lopez ([place], [place]) and Mamta Lopez ([place], [place]). 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 Amery status: Unknown Psychiatric History/Legal: Psychiatric History Psychiatric History Indicated?: Not Indicated PASRR BRIEF SCREEN 1) Patient has a mental health diagnosis: None, PASRR negative, screen complete Mental Health/DDA Agency/CM: Prescriber- Agency/PCP: Substance Use History: Substance Use History Substance Abuse History Indicated?: Not Indicated Social History Tobacco Use Smoking status: Not on file Smokeless tobacco: Not on file Substance Use Topics Alcohol use: Not on file History Drug Use Not on file Health Care Decision Making: Full Code Healthcare Decision Making Information: Pt, as able. His is primary DPOA for Healthcare and his daughter, Mamta, is secondary DPOA Contact in Following Order for Legal Next of Kin Decision Making: Patient as able Liyah Lopez: DPOA/: [phone] Mamta Lopez: Secondary DPOA/Daughter: [phone] Gulshan Lopez: Son: [phone] Providers/community agencies: Patient Care Team: Cici Jones MD as PCP - General (Internal Medicine) Insurance Information MEDICARE/MEDICARE PART A AND B Subscriber: Kendall Lopez Subscriber#: [id number] Group#: -- Precert#: -- [facility] AARP MEDICARE SUPPLEMENT Subscriber: Kendall Lopez Subscriber#: [id number] Group#: -- Precert#: -- Anticipated Living Situation Post Discharge/Needs: Home with Potential Barriers to Discharge: None identified Social Work Summary: Assessment: Kendall Lopez is an 82 year-old RHD male with history of HTN, HLD, T1DM, RA on immunosuppression who presented to an OSH with AMS/aphasia, found to have 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 Intervention: Per chart, plan is for pt to discharge home with his . They live in a single story home in [place]. ELOS is 10-14 days. SW met with pt and pt's daughter, Mamta, at bedside to introduce self and role of IPR SW'r. Pt reports that he has had busy morning with therapies but overall feels that it's going well. Pt confirmsplan to discharge home with his . SW explained that the Rehab Team will make recommendations for HH or outpatient therapies closer to discharge and SW will place referral for therapies. Pt and daughter didn't have any questions for SW at this time. SW contact was provided in case and questions/concerns arise. Plan or outcome: - SW will send out therapy referrals closer to discharge SW Referral/Interventions: SW Interventions: Discharge planning;Consult with healthcare team ANTHONY Centeno documented in this encounter H&P Notes * Souleymane Park, DO - 08/27/2022 12:51 PM PDT H&P copied from resident's note in order to attach to correct encounter. History and Physical Kendall Lopez (Kendall) - : 1940 (82 year old male) PCP: Cici Jones MD Code Status: Full Code Admission Date: (08/27/22) Impairment Group: Stroke: 01.3 Bilateral involvement Etiologic Diagnosis: L basal ganglia/thalamic infarct CHIEF CONCERN / IDENTIFICATION: Kendall Lopez is an 82 year-old RHD male with history of HTN, HLD, T1DM, RA on immunosuppression who presented to an OSH with AMS/aphasia, found to have 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 List of Impairments: Impaired mobility Impaired ADLs/iADLs Impaired communication Impaired cognition Impaired swallow Impaired ROM and strength Impaired coordination Impaired activity tolerance Impaired balance Impaired community reintegration Impaired social role Impaired safety awareness Impaired vocation Impaired avocation Impaired architectural access SUBJECTIVE HISTORY OF PRESENT ILLNESS: Mr. Lopez presented at OSH with new neurological deficits and was found to have an acute L thalamic/basal ganglia stroke complicated by a small but subsequently stable hemorrhagic conversion as well as subacute R centrum semiovale ischemic stroke and chronic right frontal ischemic stroke. The e tiology of his strokes was unclear so he was transferred to [facility] for further diagnostic work up. On a prior echo, the patient was noted to have an aortic mass, yet on our TTE did not show a mass. Moreover, outpatient cardiology notes recognize this finding and favored it to not represent a mass. We had the TTE pushed over to [facility] and at time of discharge were in the process of having [facility] cardiology read the images. TCD's were negative for emboli. Intracranial vessel imaging demonstrated a moderate burden of atherosclerosis. Given the patient's history of rheumatoid arthritis as well as pericarditis and pleural effusions, there was concern for a systemic inflammatory process. However his laboratory studies were normal and a pozo CT scanning did not demonstrate any signicant abnormalities. Hypercoagulable studies were sent and were also negative. A definitive cause of his stroke was not determined; however, we favor atherosclerosis as the primary. He was discharged on aspirin 325mg dailyand rosuvastatin 5mg daily. He will be discharged with a cardiac cath technician to assess for A-fib burden. REVIEW OF SYSTEMS: Negative except as noted in HPI. PAST MEDICAL/SURGICAL HISTORY: No past medical history on file. No past surgical history on file. MEDICATIONS: SCHEDULED MEDICATIONS: aspirin, 325 mg, Daily heparin, 5,000 units, q12h ASTRID hydroxychloroquine, 200 mg, BID insulin GLARGINE, 18 units, q AM insulin LISPRO, 0-4 units, q HS insulin LISPRO, 0-5 units, TID before meals insulin LISPRO, , TID before meals rosuvastatin, 5 mg, Daily senna, 17.6 mg, BID sulfaSALAzine, 1,000 mg, BID INFUSED MEDICATIONS: PRN MEDICATIONS: acetaminophen, 650 mg, q4h PRN dextrose, 25 mL, PRN dextrose, 50 mL, PRN glucagon, 0.5 mg, PRN glucagon, 1 mg, PRN ipratropium-albuterol, 3 mL, QID PRN labetalol, 10-60 mg, PRN melatonin, 3 mg, q HS PRN ondansetron, 4 mg, q8h PRN ALLERGIES: Shellfish-derived products Goal - understanding everything Pain - none noted Sleep - sleeping well Bowel/bladder - continent Diet - eating all meals Mood - feels well. No SI/HI Memory - does have challenges with memory SOCIAL HISTORY: Living situation/home set up: lives in home with . 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 Was ambulatory without AD for about a week prior to admission. Not driving Current Function: PT: 08/26/22 Pt seen this date for mobility progression. He presents w/ L sided weakness and coordination impairments, endorses mild fatigue following OT session and reports things are confusing. He has progressed to CGA for transfers from EOB, Meng for toilet transfers 2/2 low toilet height and up to Meng for mgmt of FWW with directional changes while ambulating. He is an excellent candidate for daily intensive therapy with a goal of optimizing function. Will continue to follow OT: 08/26/22 Pt scored DEPENDENTwith setting up a mediset with unfamiliar medications. Overall, pt demonstrated difficulties with: attention, attention to details, simple problem solving, and task efficiency Transfers Sit<>Stand: Contact guard assist (touching/steadying assistance) Sit<>Stand Assistive Device Details: Front wheeled walker Cuing Used: Verbal;Tactile Toilet Transfer: Minimum Assist (less than 25% help needed) Toilet Assistive Device Details: Grab bars;Front wheeled walker Toilet Transfers Comments: cues for hand placement Functional Mobility Distance: 50 ft Assistance Needs: Contact guard assist (touching/steadying assistance);Assistive device used Functional Mobility Assistive Device Details: Front wheeled walker Impaired ADL status;Impaired safety and/or judgement during ADL's;Impaired cognition;Impaired fine motor coordination;Visual deficit;Impaired IADL's Speech: 08/20 Swallow: Pt is at heightened risk for aspiration in the setting of new acute infarct in the left basal ganglia/thalamus, and evolving infarction in the right frontal region. Pt tolerated hard solids,purees, and single sips of thin liquids with no overt signs of aspiration. Occasional throat clear noted when pt took multiple consecutive sips of thin liquids. Based on current presentation, recommend continuation of regular diet and thin liquids, with 1:1 supervision and cues for small single sips. Given that basal ganglia and thalamic involvement can heighten risk for silent aspiration, recommend close monitoring of respiratory status with a low threshold to make pt NPO and plan for VFSS if any respiratory or aspiration-related concerns arise. ARM[employer] RECONNAISSANCE VEHICLE CREWMAN will follow closely. Cognitive-communication: Pt presents with receptive/expressive aphasia (expressive more impaired than receptive), with possible underlying memory/processing speed deficits. Pt is able to follow commands and answer egocentric yes/no questions. He is able to communicate basic wants/needs but with word-finding deficits noted during structured tasks and more complex verbal output. Suspect this is a departure from patient's recent baseline. Recommend assistance with communication-based tasks and iADLS. Pt is a good candidate for daily intensive ARM[employer] RECONNAISSANCE VEHICLE CREWMAN intervention if pt has PT/OT goals to support IPR stay. Acute ARM[employer] RECONNAISSANCE VEHICLE CREWMAN will follow while in-house. Bowel: spontaneous/continent Bladder: spontaneous/continent Nutrition: reg diet/thin liquids with 1:1 supervision and cues for small single sips OBJECTIVE T: 36.4 ??C (08/27/222037) BP: 116/84 (08/27/222037) HR: 80 (08/27/222037) RR: 16 (08/27/222037) SpO2: 95 % (08/27/222037) Room air Vitals (Most recent in last 24 hrs) T: 36.4 ??C (08/27/222037) BP: 116/84 (08/27/222037) HR: 80 (08/27/222037) RR: 16 (08/27/222037) SpO2: 95 % (08/27/222037) Room air T range: Temp Min: 36.3 ??C Max: 36.7 ??C Wt 153 lb (69.4 kg) Ht 5' 11 (1.803 m) Body mass index is 21.34 kg/m??. Physical Exam: General: No acute distress, resting comfortably HEENT: Normocephalic Cardiac: Extremities warm well perfused Pulmonary: Nonlabored breathing on room air Abdomen: Nondistended Neuro: Alert and awake Cranial Nerves: II (Visual Mendiola) Full to finger counting in 4 quadrants II (Visual Acuity) Not assessed II (Pupils R/L) 4mm/4mm reacting to 2mm/2mm II (Fundi) Not assessed III,IV, (EOMS) Normal bilaterally, no clear ptosis V (sensation, mastication) Intact and equal bilaterally VII (facial strength) Normal to grin VIII (hearing) Normal to spoken voice IX, X (palate, phonation) Palate elevates symmetrically XI (sternocleidomastoid, shrug) Symmetric bilaterally to head turn, shoulder shrug XII (tongue protrusion) Midline Motor Strength: R L Shoulder abduction 5 5 Elbow flexion 5 5 Elbow extension 5 5 Wrist extension 5 5 Special Education Coordinator strength 5 5 Hip flexion 5 5 Knee extension 5 5 Knee flexion 5 5 Dorsiflexion 5 5 Plantarflexion 5 5 Sensation: Grossly intact to finger touch in bilateral upper and lower extremities. No tactile neglect with unilateral and simultaneous finger touch to legs. Proprioception intact at bilateral great toes. Reflexes: Biceps 1+ BR 1+ Triceps 1+ Patellar 1+ Achilles 1+ Clonus None Coordination: Finger to nose testing without apparent dysmetria. Finger tapping without apparent dysmetria. Rapid alternating movements with dysdiadokinesia. Cognition: Alert and oriented. X1/2 ( did not know date, but did on cueing, did not know location but did on cueing) Able to repeat 3 of 3 words (plastic, pen, shoe) after 1 trial. Able to say [place] is a rainy city. Able to name phone, badge/nametag, and pen Able to follow 3 step commands. Unable to to spell WORLD backwards. Able to copy three-dimensional cube accurately. Able to draw a north fork clock but correct numbering. UNABLE to draw the time as 11:40 on above clock. Able to repeat 5 digits forwards and 3 digits backwards. Able to recall 0 of 3 words (apple, red, faith) after 5 minutes. 3/3 with cueing Able to explain similarities between objects (apple/orange, left/up). Able to describe what he/she would do with a stamped letter. LABS: Labs (last 24 hours): Chemistries CBC LFT Gases, other 136 104 32 309 - AST: - ALT: - -/-/-/- -/-/-/- 4.5 25 1.15 - >< - AP: - T bili: - Lact (a): - Lact (v): - eGFR: >60 Ca: 9.3 - Prot: - Alb: - Trop I: - D-dimer: - M.6 PO4: - ANC: - BNP: - Anti-Xa: - ALC: - INR: - ADDITIONAL RESULTS/IMAGING: MICRO: I have personally reviewed the latest Micro results and cultures IMAGING: I have reviewed the latest radiology results 08/19 CTH w/o con - There is a focal ill-defined area of hypoattenuation within the left anterior thalamus and adjacent internal capsule, corresponding to an area of acute infarct seen on subsequent brain MRI. No evidence of acute hemorrhagic conversion or significant mass effect. -A few small polypoid lesions in the posterior nasal cavity, probably representing polyps. -Small bilateral pleural effusions. 08/19 MRI brain: New acute infarct in the left basal ganglia, thalamus, and adjacent white matter. Associated susceptibility indicating small adjacent hemorrhage. Evolving infarction in the right frontal region again seen. 08/21 MRI brain: 1. Acute infarct involving the left thalamus with subacute infarct in the right ACAterritory. 2. Old left basal ganglia hemorrhage. 3. Moderate volume loss and microvascular ischemic changes. 4. Scattered nonocclusive eccentric enhancing intracranial plaques most compatible with atherosclerosis. No evidence of infectious or inflammatory vasculitis. PATHOLOGY: I have reviewed the latest pathology results ASSESSMENT/PLAN Kendall Lopez is an 82 year-old RHD male with history of HTN, HLD, T1DM, RA on immunosuppression who presented to an OSH with AMS/aphasia, found to have 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 Now medically stable and admitted to [facility] on 08/27/22 for intensive PT, OT, speech therapy. #Rehabilitation plan for ischemic infarct - Continue comprehensive inpatient rehabilitation care including medicine, nursing, physical therapy, occupational therapy, speech therapy, recreational therapy and rehabilitation psychology. Memory Memory is challenge especially antegrade Speech Word-finding expressive aphasia noted Agitation None currently Pain No concerns at this time Sleep No concerns at this time 8. Bowel/Bladder a. No concerns at this time 9. Nutrition a. 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 History of old right frontalinfarct, subacute right centrum semioval infarct. Acute/subacute ischemic infarcts in bilateral hemispheres in multiple territories with unknown etiology, currently undergoing extensive workup for feng rce. TTE was negative for atrial mass, which was initial suspicion for a cardioembolic source. Blood cx NGTD and no s/sx of infection, making infective endocarditis very unlikely currently. MRI blackblood had findings most consistent with atherosclerotic changes, with no evidence of vasculitis or other inflammatory process, r/o RA vasculitis. APS labs negative. CT C/A/P overall unremarkable, x1 5mm indeterminate lung nodule and calcified granulomas. Repeat TCD negative. Will work to obtain OSHecho images to ensure there was no prior mass seen. Continue neuro checks with VS monitoring. Continue goals for normotension, normothermia, eunatremia- goal 135-145, and euglycemia: BG <180. The pt remains on ASA 325mg daily and DVT ppx - SQH u13ktpdl. ARM[employer]ONNAISS[employer]HICLE CREWMAN cleared patient for PO intake with supervision - neuro checks q shift - BP goal: normotensive - euglycemia: BG <180 - see below - normothermia > tylenol 650mg q6h - eunatremia: goal 135-145 - acquire OSH echo images to confirm if prior mass/thrombus -> [ ] discuss w/ cardiology how to obtain - ASA 325mg qd - DVT ppx - SQH q12h #DMT1, A1c 6.2 Home regimen glargine 15u qhs, 1u:20cal. Seems mostly good control at home. Will cont to monitor BGcontrol on current regimen. Appreciate endocrinology recs/assistance as needed. - glargine 18u qam - nutritional insulin 1u:10 carbs - LDSSI w/ meals + qhs CHRONIC // RESOLVED // STABLE: #Chronic Moderate-Large Pericardial Effusion #Chronic Bilateral Pleural Effusion TTE redmonstrated pericardial effusion and pleural effusion which have been present for >2 yearsbased on chart review. Cardiology not concerned and no s/sx of hemodynamic compromise or tamponade.Plan for further monitor outpatient w/ his rn trauma. - outpatient f/u and eval #ARNAV - Unclear baseline sCr - though prior Cr 1.1 a year ago. Cr 1.32 on admission, now 1.15 on 02/27/22. #HLD - rosuvastatin 5mg #Rheumatoid Arthritis Patient does not endorse any arthritic pain or flare-up episode. To maintain optimal immunosuppression, restarted home RA meds. - continue sulfasalazine and hydroxychloroquine #Asthma, stable - uses fluticasone/salmetrol at home - duoneb prn ordered Inpatient Checklist: Fluids/Electrolytes/Nutrition: Diabetic diet Prophylaxis: SQH q12h Lines/Drains/Airways: pIV Disposition: Neurology acute care Code Status: FULL Contacts: Liyah Lopez - - [phone] GENERAL HEALTH MANAGEMENT Diet: Adult Diet Regular; Carbohydrate managed Bowel Status: Spontaneous, continent Bladder Status: Spontaneous, continent DVT Prophylaxis: SubQ hep Estimated Length of Stay: 10-14 Discharge Location: Home ANTICIPATED FOLLOW-UP AFTER DISCHARGE Rehab Medicine within 1 month after discharge Primary Care Physician within 1 weeks after discharge Therapies: To be determined On discharge, the patient will need the following follow up: - endocrinology - PCP - stroke clinic - cardiology to follow up the cardiac event monitor Attending Physician attestation: Date of Service 08/27/2022 I have reviewed and agree with the resident's note. High-Risk Drug Classes: use and indication Is taking: Indication noted: Antipsychotic No N/A Anticoagulant Yes Yes Antibiotic No N/A Opioid No N/A Antiplatelet No N/A Hypoglycemic (including insulin) Yes Yes None of the above N/A documented in this encounter Consult Notes * Saira Garcia RN - 09/08/2022 4:10 PM PDTAssociated Order(s): IP CONSULT TO GLYCEMIC CONTROL Glycemic Stewardship: Discharge diabetes education/support CC: Kendall Lopez is an 82 year-old RHD male with history of HTN, HLD, T1DM, RA on immunosuppression who presented to an OSH with AMS/aphasia, found to have 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 I met with patient twice this afternoon, first with patient, Donna and LEANDRA, and again with Joana Chilel on speaker phone and son Gulshan present. Medications/monitoring: Donna expressed concern about care of patient's diabetes, requesting clarity and written directions on what to do She is familiar with the Freestyle Danielle use and giving patient insulin. It was difficult to clarify what exactly patient's insulin regimen was at home, however we determined that patient takes glargine at hs, I:C ratio 1:20 at meals and gives one unit of Novolog for every 20 above patient's goal BG 129. She stated that she bought a BG monitor for validation of CGM when needed. Concerning scenario she presented was: 1900: Meal and short acting insulin, BG 169 2200: Lantus 0300: BG 300, gave 10u short acting 0400: BG 400 - what should she do? Joana will give recommendations to increase Lantus at hs, and simplify Novolog nutritional + correctional, with plan to meet again with Donna tomorrow morning. Nutrition: Although Donna expressed concern about what to feed patient, including asking for a mealplan for the first few days, she appears to have a good understanding of carb counting. I provided a small manual with carbs for common foods, as well as a diagram of the plate method to use as a basis for meals and suggested food items. Discussed with Dr. Park, I believe that patient would benefit from managing patient's diabetes regimen for a couple of days inpatient, including counting carbs on tray and calculating the amount of insulin required based on I:C ratio and correction. I will follow, thank you for this consult. * Joana Chilel PA-C - 08/29/2022 3:30 PM PDTAssociated Order(s): IP CONSULT TO GLYCEMIC CONTROL Images from the original note were not included. Consult Note Kendall Lopez (Kendall) - : 1940 (82 year old male) Preferred Pronouns: he/him/his Admit Date: 08/27/2022 Code Status: Full Code GLYCEMIC CONTROL BRIEF CONSULT NOTE Patient : Kendall Lopez; 82 year old Primary Service: Inpatient Rehab Medicine - Attending: Souleymane Park DO Admit Date: 08/27/2022 Hospital Day: Hospital Day: 3 CHIEF CONCERN: Mr. Lopez is an 82yo male with history of DM1, HTN, HL, RA admitted as transfer from [facility] for subacute cerebral infarct. He has since transferred to inpatient rehab service, and the Glycemic Control Consult Service was asked to see this patient for the support of diabetes management. HISTORY OF PRESENT ILLNESS: -Diagnosis: Known DM1, diagnosed 1983 by chart review -Outpatient diabetes provider: Dr. Niharika Pedroza, [facility], last visit 12/17/2021 -Home regimen: Lantus 15 units daily, novolog 1:20 (some mention of higher dose at dinner 1:10 in last Endo note). -Home glucose monitoring: Freestyle Danielle -Hypoglycemia: low 1% per last CGM reading Nov 2021 -Diet: Carb managed, eating 40-80 grams per meal, well documented No past medical history on file. Medications Prior to Admission Medication Sig Dispense Refill Last Dose hydroxychloroquine 200 MG tablet Take 1 tablet (200 mg) by mouth 2 times a day. insulin ASPART 100 UNIT/ML injection Inject under the skin. 1 unit per 20 calories with each meal insulin GLARGINE (Lantus SoloStar) 100 UNIT/ML pen-injector Inject 15 units under the skin at bedtime. lisinopril 5 MG tablet Take 1 tablet (5 mg) by mouth daily. rosuvastatin 5 MG tablet Take 1 tablet (5 mg) by mouth daily. sulfaSALAzine 500 MG tablet Take 2 tablets (1,000 mg) by mouth 2 times a day. ALLERGIES: Shellfish-Derived Products CURRENT MEDICATIONS: aspirin, 325 mg, Daily heparin, 5,000 units, q12h ASTRID hydroxychloroquine, 200 mg, BID insulin GLARGINE, 18 units, q AM insulin LISPRO, 0-4 units, q HS insulin LISPRO, 0-5 units, TID before meals insulin LISPRO, , TID before meals rosuvastatin, 5 mg, Daily senna, 17.6 mg, BID sulfaSALAzine, 1,000 mg, BID HABITS: History Smoking Status Not on file Smokeless Tobacco Not on file History Alcohol use Not on file History Drug Use Not on file VITALS: BP 138/82 (Patient Position: Lying) Pulse 90 Temp 36.3 ??C (Temporal) Resp 16 Ht 5' 11 (1.803 m) Wt 69.4 kg (153 lb) SpO2 98% BMI 21.34 kg/m?? PHYSICAL EXAM: Pt not seen for exam today LABORATORY STUDIES: Lab Results Component Value Date A1C 6.2 08/20/2022 Lab Results Component Value Date CREATININE 1.34 08/29/2022 CREATININE 1.15 08/27/2022 CREATININE 1.36 08/26/2022 Lab Results Component Value Date GLUCOSE 236 08/29/2022 GLUCOSE 343 08/29/2022 GLUCOSE 316 08/29/2022 GLUCOSE 146 08/28/2022 GLUCOSE 168 08/27/2022 GLUCOSE 87 08/26/2022 BLOOD GLUCOSE TRENDS: ASSESSMENT / PLAN: Mr. Lopez is an 82yo male with history of DM1, HTN, HL, RA admitted as transfer from [facility] for subacute cerebral infarct. He has since transferred to inpatient rehab service, and the Glycemic Control Consult Service was asked to see this patient for the support of diabetes management. He was last followed up by glycemic team/endocrine this admission on 08/23, at which time the recommendations were for glargine 18 units QAM, ICR of 1:10 TID AC and low dose correction TID AC and HS. Transferred to [facility] 08/27 on same regimen. Blood glucose levels have varied significantly since that time as seen above. For unclear reason, 21 units charted for lunch yesterday, where it should be a maximum of 10 units nutritional and 5 units correctional so possible an extra dose was given in error? This may explain low BG last evening, followed by hyperglycemia this AM if he was provided with extrahypo treatment last evening. Does appear control is better today though remains above goal this lunch. Summary of recommendations: -Continue with insulin as currently ordered for now -When BG is 71-89 premeal, give 50% of nutritional insulin dose; do not hold -Aim to give lispro at least 3-4 hours apart in doses to avoid stacking -Consider adding extra point of care at 2am if consistently seeing elevated FBGs -Ask RN to document all snacks and supplements in I&Os, particularly in evening to assist in evaluation of insulin needs Thank you for consulting our service. We will continue to follow-up as able. For urgent assistance evenings, weekends and holidays, please contact Endocrine fellow radiation oncology manager. Joana Chilel PA-C Glycemic Control Team Division of Metabolism, Endocrinology and Nutrition [facility] * Anita Lyons RD - 08/28/2022 10:04 AM PDTAssociated Order(s): IP CONSULT TO NUTRITION SERVICES Inpatient Adult Initial Nutrition Assessment Assessment 82 year-old RHD male with history of HTN, HLD, T1DM, RA on immunosuppression who presented to an OSH with AMS/aphasia, found to have acute left basal ganglia and thalamus infarcts. Admit to [facility] 08/19 and tx'd to [facility] 08/27. Reason for Consult: Nutrition Assessment Admission Anthropometrics: Height: 180.3 cm (5' 11) Weight: 69.4 kg (153 lb) Weight Method: Bed scale BMI (Calculated): 21.3 BMI Classification: Healthy BMI for > 65 years old is 22-27.9: under ideal BMI range for age UBW: 70.5 kg General Height/Weight Data: Weight for the past 168 hrs: Weight 08/27/22 2100 69.4 kg (153 lb) Weight History: 70.3kg (08/07/22), 67.6kg (06/2022), 68.7kg (05/2022), 71.5kg (07/2021) Labs: Labs reviewed (08/20) A1c 6.2 Relevant medications include: glargine, lispro, senna Food Allergies: NKFA Nutrition Requirements: deferred Current PO Diet: Carb Managed Received >75% goal nutrition the past [address] Discharge Planning: RD Discharge Planning: Patient consistently meeting >50% energy and protein needs with oral intake. Nutrition-Focused Physical Assessment: deferred Evaluation of Nutritional Status General: Pt seen, interviewed. Pt reports eating well well logging captain, denies recent wt loss. Admit wt similar to reported UBW and wt hx. Tx'd to [facility] 08/27. Nutrition/GI: Pt reports good appetite since admit, eating 100% of meals. Last BM 08/26. Labs: A1c shows good glycemic control well logging captain. Elevated BUN noted. Edu: Consulted for stroke/DM diet education. Interrupted by other providers on this date. A1c showsgood glycemic control well logging captain and cholesterol labs also wnl. Further diet education not indicated at this time. Nutrition Diagnosis: N/A Interventions: Chart reviewed. Discussed status, point of care/goals with patient. Discussed current intake and tolerance with patient. Language support: No child and adolescent psychologist needed (documented language preference is Bulgarian) Goals of intervention: To support healing/repletion. Plan: Monitor oral intake and tolerance. Monitor nutrition lab trends, weight trends. Recommendations: RR./ 1. Continue current diet order, encourage PO intakes. 2. Monitor stooling, bowel meds as ordered 3. Monitor wt trends 4. Further DM/stroke diet education not indicated at this time 5. 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 Now medically stable and admitted to [facility] on 08/27/22 for intensive PT, OT, speech therapy Illness Severity Stable. Pt alert and forgetful, move all extremities with weakness, skin scratch on left face, denies pain,VSS, no IV, no edema, no s.sx of respiratory distress, spO2 98% RA. General diet with thin liquids,BS 190, good appetite, schedule insulin given as ordered, take meds whole. Continent bladder and bowel, use BR with assistance. Ambulating with FWW, one person CGA. Discharged to SNF, picked up by the son. took all belongings. Report given to Yovanny HENRIQUEZ. All questions were answered. 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 Now medically stable and admitted to [facility] on 08/27/22 for intensive PT, OT, speech therapy Illness Severity Stable [id number] A&O x2-3, forgetful and confused at times. Follows commands. KEEN with BUE 5/5 and BLE 4/5. VSS,on Holter monitor, afebrile. On RA. Denies SOB. No s/sx of respiratory distress noted. Denies pain.On Carb managed diet with thin liquids. Meds whole w/ thins. 1-1 feeder. BG check AC/HS, BG 269 at hs. BG 126 at 2 am. BG 190 this morning. Continent B/B. Voided in BR w/SBA/ FWW. Pt slept well. Bed in low position. Call light within reach. Bed alarm on AAT. No acute events this shift. 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 Now medically stable and admitted to [facility] on 08/27/22 for intensive PT, OT, speech therapy [id number] A&O x2-3, forgetful. VSS, afebrile, on RA. Denied pain. Meds whole w/ thins. 1-1 feeder. AHCS, carb managed diet. Holter monitor reapplied to chest. Continent B/B. SBA w/ FWW. BUE 5, BLE 4. Call light w/I reach, uses appropriately. Bed alarm on AAT. No acute events this shift. 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 Now medically stable and admitted to [facility] on 08/27/22 for intensive PT, OT, speech therapy [id number]: A&O x2-3, forgetful. Follows commands and answer simple yes/no questions. BUE 5/5 and BLE 4/5. VSS, RA, afebrile. Holter monitor intact. Denied pain. Meds whole with thins. 1:1 supervision with meals, family bedside helping feed. Continent bowel and bladder during day. CGA w/ FWW, spouse signed off today with therapies for transfers. BM this AM. Skin intact. Dinner blood sugar 327,insulin given per parameters. Illness Severity Stable * Gerson Glover RN - 09/10/2022 6:33 AM PDT Images from the original note were not included. 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 Now medically stable and admitted to [facility] on 08/27/22 for intensive PT, OT, speech therapy NEURO: A/O x 3 Disoriented to time , Strong upper Extremities: 5/5 , BLE Extremities 4/5: no C/o ofNumbness or Tingling CV: VSS, Afebrile, R PIV: Flushes well: no Compressions need when oob RESP: RA, no C/o of Sob during this shift GI/: : Regular Adult Carb managed diet: 1;1 with meals : Takes meds whole with thin liquids, LBM 09/09/22, BSACHS: Patient is on Carb Count for nutritional insulin+ Correctional: 7 units given: 2 units Correctional insulin given, Cont v.s incont with bladder: no incontinence during this shift HS BS: 183:No correctional Given: patient has BS: @ 0200 in AM ( ) SKIN: Scattered Abrasions on Skin, Skin grossly intact PAIN: Denied pain during this shift MOBILITY: 1 Person SBA with CLYDE DELCID on , Call Light within reach * Jessica Pagan RN - 09/09/2022 2:55 PM PDT Patient Summary 82 yo RHD male with history of HTN, HLD, T1DM, RA on immunosuppression who presented to an OSH withAMS/aphasia, found to have 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 Now medically stable and admitted to [facility] on 08/27/22 for intensive PT, OT, speech therapy [id number]: A&O x2-3, forgetful. Slightly hypotensive BP for him this AM- otherwise VSS, afebrile, on RA. Denied pain. Meds whole w/ thins. 1-1 feeder, fam at bedside helping feed and for healthcare liaison training. Education done w/ family about insulin administration. BG checks ACHS and 0200, carb managed diet. @ AC PIV flushed w/o resistance. Holter monitor reapplied to chest. Continent B/B duringday- continent vs incontinent at HS. CGA w/ FWW. 1 medium BM this shift. BUE 5, BLE 4. Call light w/I reach, uses appropriately. Bed alarm on AAT. 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 Now medically stable and admitted to [facility] on 08/27/22 for intensive PT, OT, speech therapy 09/08 [id number]: A&O X 2-3,able to verbalize needs appropriately.VSS on RA.Had an incontinent episode once last night otherwise used the restroom a few times.Up with a walker. Denied pain. Meds whole with thins, 1-1 feeder. BG checks ACHS and 0200. Patient has Holter monitor applied to chest. 1 BM this shift. 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 Now medically stable and admitted to [facility] on 08/27/22 for intensive PT, OT, speech therapy [id number]: Alert, orientation fluctuating- MD aware. This AM, was able to state his own name and hospital name only. VSS, afebrile, on RA. Denied pain. Meds whole with thins, 1-1 feeder. BG checks ACHS and 0200. Held AM and lunch dose of sliding scale insulin d/t below parameters, carb managed insulin given. Continent of B/B. CGA w/ FWW. Diabetes nurse completed education with Donna () this shift. R AC PIV flushing w/o resistance. Holter monitor applied to chest. 1 BM this shift. Planned DCtomorrow to home. Call light within reach, uses appropriately. Able to verbalize needs. 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 Now medically stable and admitted to [facility] on 08/27/22 for intensive PT, OT, speech therapy [id number]----[id number] Neuro: A&O x 4, clear speech, able to make needs known. Follows commands. Calm and co opretive with care. CV: VSS. Afebrile. ELA PIV intact. Holter monitor in place. Resp: On RA, denies SOB, No S/SX of respiratory distress. SAT high 90. GI: On regular carb managed diet with thin liquid, take med whole with water. BS check HS, 0200, and AC. HS BS was 117, 0200 was 123. 142 in this morning. : Continent, void in bath room. Skin: No new skin issue noted. Mobility: 1 person CGA with gait belt on and FWW to ambulate to bath room, independent in bed mobility, BUE 5/5, BLE 4/5. Safety: Bed in low position, call light with in the reach, call appropriately, bed alarm on for safety purpose. Had good sleep noted in hourly rounding, will monitor continue. Illness Severity Stable * Iggy Camarena RN - 09/07/2022 6:06 PM PDT Pt is A&Ox4 w some slight forgetfulness, but able to adequately make needs known. Pt VSS and onRA. Pt is on contact precautions for fungal rule out. Pt denies GARCIA or dizziness. Pt takes pills w/ thin and is an AC/HS BS check. Scheduled sliding and carb coverage insulin administered. Pt has a holter monitor on. Pt is continent of B&B. Pt denies pain throughout shift. Pt ambulates with a 4WW and x1 PA. No Skin issues. Bed alarm on for safety. Call light within reach. WCTM. 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 Now medically stable and admitted to [facility] on 08/27/22 for intensive PT, OT, speech therapy [id number]: A/O x 4, clear speech. Ambulates with walker, contact guard assist - bed alarm on. Denies pain. Continent of bladder - need assistance to ambulate to the bathroom. No BM this shift. DM2 - blood glucose check, see MAR & lab. Patient was asleep during hourly rounding. No acute event. 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 Now medically stable and admitted to [facility] on 08/27/22 for intensive PT, OT, speech therapy NEURO: A/O x 3 Disoriented to time ,BUE Motor Strength 5/5 : Full sensation BUE, BLE 4/5 in Motor Strength: Patient had no C/o of Numbness and Tingling on All Extremities CV: VSS ,Afebrile, RUE PIV: Flushed during this shift, no C/o of GARCIA or chest pain: Patient currently has a holter monitor RESP: RA, no C/o of SOB GI: Regular Adult Carb Managed Diet: Takes Meds whole with thin liquids, Able to Feed Self, BSACHS,Patient is Carb count Nutritional Dose+ Correctional Dose: Per order every 10G of Carbs= 1 unit of insulin+ Correction Dose Before Meals: Dinner BS: 349: given 4 units of correctional dose + 6 units of nutritional Dose, HS BS 251: Given 3 units of correctional dose , Patient is on 16 units of Insulin Glargine in MA: Cont B/B Voids and Eliminates in Bathroom: LBM 09/06/22 SKIN: Some bruising on Abdomen but skin Grossly intact PAIN: Patient Denied Pain during this shift MOBILITY: 1 PA with FWW when transferring and Toileting - Patient has sulfasalazine and hydroxychloroquine Address RA * Iggy Camarena RN - 09/06/2022 2:15 PM PDT Pt is A&Ox4 w some slight forgetfulness, but able to adequately make needs known. Pt VSS and onRA. Pt is on contact precautions for fungal rule out. Pt denies GARCIA or dizziness. Pt takes pills w/ thin and is an AC/HS BS check. Scheduled sliding and carb coverage insulin administered. Pt has a holter monitor on. Pt is continent of B&B. Pt denies pain throughout shift. Pt ambulates with a 4WW and x1 PA. No Skin issues. Bed alarm on for safety. Call light within reach. WCTM. 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 Now medically stable and admitted to [facility] on 08/27/22 for intensive PT, OT, speech therapy [id number] Neuro: A&Ox4, clear speech, KEEN 05/28 CV: BP 105/53- asymptomatic, patent PIV RUE, holter monitor Lungs: RA, no SOB GI/ : take meds whole w/ thin liq, cont B&B- BRP,BMX1, glucose monitor, BG 198 hs, 2AM BG 249, BG 243 ac Skin intact Pain: 0 Transfer: SBA w/ FWW Call light w/in reach . 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 Now medically stable and admitted to [facility] on 08/27/22 for intensive PT, OT, speech therapy Illness Severity Stable NEURO: Alert and oriented x 3. Forgetful. Clear speech, make needs known. KEEN CV: VSS and afebrile. Holter monitor on at all time. Charged this afternoon RESP: RA GI: Ate 100% of dinner. CS = 98 nutritional dose of insulin given as order no coverage needed. : Cont with bowel/bladder SKIN: No skin issue PAIN: Denies pain MOBILITY: Ambulates using FWW with one person assist. Bed alarm on for safety. Call light with in reach. 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 Now medically stable and admitted to [facility] on 08/27/22 for intensive PT, OT, speech therapy. [id number] Neuro: AOx4. CV: VSS. Resp: RA. No respiratory distress. GI: Regular diet, carb controlled, thin liquid, takes meds whole with water. Insulin administered per APR. : Continent of bladder. No BM on day shift. Skin: C/D/I. Pain: Denies pain. Mobility: CGA x1 FWW. Safety: Call light in reach, bed alarm in use. Visitors: Daughter at bedside. 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 Now medically stable and admitted to [facility] on 08/27/22 for intensive PT, OT, speech therapy. 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 Now medically stable and admitted to [facility] on 08/27/22 for intensive PT, OT, speech therapy. [id number] Pt alert and oriented, forgetful at times, VSS on RA, cooperative with care. KEEN 4/, ambulates CGAx1 with gait belt and FWW. Reg diet, ACHS, meds whole with thins. Cont B&B, urinal at bedside, last BM this shift. R PIV. No acute events this shift. Action Items BG AC/HS Fall risk, bed alarm Urinal 1PA FWW CGA, L side weak Meds one at a time with thins Situational Awareness Lives at home with in [place], doesn't drive Incidental finding with workup of aortic mass- will need outpatient workup. 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 Now medically stable and admitted to [facility] on 08/27/22 for intensive PT, OT, speech therapy. [id number] Neuro: AOx4. CV: VSS. Resp: RA. No respiratory distress. GI: Regular diet, carb controlled, thin liquid, takes meds whole with water. Carb count insulin administered, no extra coverage needed. : Continent of bladder. No BM. Skin: C/D/I. Pain: Denies pain. Mobility: CGA x1 FWW. Safety: Call light in reach, bed alarm in use. Visitors: at bedside. 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 Now medically stable and admitted to [facility] on 08/27/22 . Patient is AOX4, forgetful, impulsive,calls appropriately for his needs, moves all extremities, follows commands and cooperative with care . Vitals are stable and afebrile,, RFA PIV saline locked,patient has cardiac cath technician is in place. No apparent respiratory distress noted,saturating at 97 % in room air. Patient has carbohydrate managed regular diet and thin liquids,takes pills whole with water, patient needs set up assist with meals. Patient is continent of bowel and had medium soft BM last night in toilet and was continent of bladder using urinal at bedside with assist /voiding in bathroom. Patient is able to reposition in bed and needs 1 person CGA to ambulate with his FWW . Patient denied any pain or discomfort. Patient slept well . Patient has bed in low position,call light at easy reach, bed alarm for safety,blood sugar at 0200 was 139, and blood sugar this morning at 0600 was 119, will continue to monitor. 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 Now medically stable and admitted to [facility] on 08/27/22 for intensive PT, OT, speech therapy. [id number]: Pt is alert and oriented x2-3,clear speech,able to make needs known. KEEN,VSS,afebrile,PIV on R AC patent. On RA. Denies SOB/respiratory distress. Denies pain. Regular carbohydrate diet with thin liquids. Takes meds whole with thin. BG AC,HS and 2 AM. CS before dinner 113, Pt get 77 gram carb in his dinner, 8 units insulin given per order. Continent of bowel and bladder. Ambulates with one person CGA with FWW. No skin issue noted. Family at bed side. Bed alarm on for safety. Call light within reach. * Jessica Pagan RN - 09/03/2022 11:14 AM PDT Images from the original note were not included. 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 Now medically stable and admitted to [facility] on 08/27/22 for intensive PT, OT, speech therapy. [id number]: A&O x3, VSS, on RA, afebrile. Speech fluctuates- clear, with periods of expressive aphasia. Unable to state why he is here. Meds whole w/ thins. No skin issues. CGA to FWW. Set up assistance w/ meals. Continent B/B. Forgets limitations at times, needs to be reminded to take his time.Care conference today with and daughter present. Projected DC date 09/09. Bed alarm on AAT. Call light within reach. 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 Now medically stable and admitted to [facility] on 08/27/22 . Patient is AOX4, forgetful, impulsive,called appropriately last night, moves all extremities, follows commands and cooperative with care last night. Vitals are stable and afebrile,, RFA PIV saline locked. No apparent respiratory distress noted,saturating at 97 % in room air. Patient has carbohydrate managed regular diet and thin liquids,takes pills whole with water, patient needs set up assist with meals. Patient is continent of bowel and had medium soft BM last night in toilet and was continent of bladder using urinal at bedside with assist /voiding in bathroom. Patient is able to reposition in bed and needs 1 person CGA to ambulate with his FWW . Patient denied any pain or discomfort. Patient slept well. Patient has bed in low position,call light at easy reach, bed alarm for safety,blood sugar at 0200 was 139 and blood sugar this morning at 0600 was 116, will continue to monitor. * Jessica Pagan RN - 09/02/2022 3:17 PM PDT Images from the original note were not included. 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 Now medically stable and admitted to [facility] on 08/27/22 for intensive PT, OT, speech therapy. [id number]: A&O x1, VSS, on RA, afebrile. Said date was March 17 something and the president is Ray Miller. Unable to name location, when asked why he is here he said because I'm not there. Short term memory intact, remembered visit from daughter and and what he had for lunch.Also able to meet fluid intake goals given by nurse, remembering to do so. Expressive aphasia. BG ACHS, carb management insulin. Meds whole, one at a time, w/ thins. Denied pain. 1-1 feeder. CGA to FWW. Continent B/B, 1BM today, large. R arm PIV flushing w/o resistance. Family at bedside. Able to make needs known. Needs bed alarm on, pt forgets limitations. Encouraging fluids. Illness Severity Stable * Rosy Hall, RN - 09/02/2022 5:47 AM PDT Patient Summary 82 yo RHD male with history of HTN, HLD, T1DM, RA on immunosuppression who presented to an OSH withAMS/aphasia, found to have 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 Now medically stable and admitted to [facility] on 08/27/22 for intensive PT, OT, speech therapy. [id number]- Alert and oriented x1-2 forgetful, and impulsive, does not call for assists, hence BA minh for safety of pt. KEEN 4/5 with generalized weakness.L side slightly weaker.Amb with FWW CGA. PIV RFA, holter monitor on. Pt on RA, denied SOB, resp distress noted. Carb managed diet. Take medswhole w/ thin liq, cont B&B. 2AM BG 112mg/dl. 06 am BS= Denied pain. Slept between care. Able to turn self. Transfer amb with 1P CGA w/ FWW. Call light w/in reach,but pt don't call for assist, bed alarm and was trigger 2 time when pt going to BR. Will continue with plan of care. Edited by: Rosy Hall, MARTINEZ at 09/02/2022 0320 Illness Severity Stable Edited by: Wilma Perdue, RN at 08/28/2022 1923 * Fara Rico, MARTINEZ - 09/01/2022 10:00 PM PDT Patient Summary 82 yo RHD male with history of HTN, HLD, T1DM, RA on immunosuppression who presented to an OSH withAMS/aphasia, found to have 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 Now medically stable and admitted to [facility] on 08/27/22 for intensive PT, OT, speech therapy. [id number] Pt Aox4, but forgetful. Taken pills whole w/ thins. Denies pain. RA. 1PA to BR w/ FWW. Blood glucose 60 @ 2029, 25ml dextrose 50% given, 108 @ 2136. Pt denies dizziness/any other affects. No BM this shift. Edited by: Fara Rico, MARTINEZ at 09/01/20222158 Illness Severity Stable * Nallely Mccall, MARTINEZ - 09/01/2022 4:12 PM PDT Patient Summary 82 yo RHD male with history of HTN, HLD, T1DM, RA on immunosuppression who presented to an OSH withAMS/aphasia, found to have 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 Now medically stable and admitted to [facility] on 08/27/22 for intensive PT, OT, speech therapy. [id number]: A/O x 4, forgetful, afebrile, on RA, denies pain, VSS. BG AC/HS with carb counting. Evening meal carbs 74- units insulin given per order. BG 88, meal given, 50% insulin nutritional given per order. 1:1 feed, meds PO with thins. Left side weak, 1 PA FWW w/ CGA. Cont of B/B. Bed alarm for safety. Sleeping in afternoon after therapies. Call light in reach. Illness Severity Stable * Rylan Hines RN - 09/01/2022 2:14 PM PDT Patient Summary 82 yo RHD male with history of HTN, HLD, T1DM, RA on immunosuppression who presented to an OSH withAMS/aphasia, found to have 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 Now medically stable and admitted to [facility] on 08/27/22 for intensive PT, OT, speech therapy. [id number] Pt aox3,vss, on ra and able to answer all questions appropriately. Noted short term memory issues, and confusion as to situation. Pt cooperative and amiable to learning. Pt taught on insulins; long acting vs short acting. BG POCT ACHS and q24h 0200. Pt's glucose managed with insulin SQ; nutritionaland SS. Bed in low locked position. Call light within reach. All needs met in real time. Last BM 08/31; denies pain. Illness Severity Stable Edited by: Wilma Perdue, MARTINEZ at 08/28/20221922 * Katie Lui RN - 08/31/2022 9:53 PM PDT Illness Severity Stable Patient Summary 82 yo RHD male with history of HTN, HLD, T1DM, RA on immunosuppression who presented to an OSH withAMS/aphasia, found to have 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 Now medically stable and admitted to [facility] on 08/27/22 for intensive PT, OT, speech therapy. [id number] Neuro: Alert & oriented to self, forgetful, calm & cooperative, KEEN 05/28 CV: BP 108/54- asymptomatic & MD notified, patent PIV RFA, holter monitor Lungs: RA, no SOB GI/: take meds whole w/ thin liq, cont B&B w/ BRP / urinal @ bedside- BMx1, BG 148 hs, 2AM BG130 , BG 83- OJ- 89- 111 ac Skin: intact Pain: 0 Transfer: 1P CGA w/ FWW Call light w/in reach, bed alarm on * Asha Cisneros RN - 08/31/2022 6:45 PM PDT Patient Summary 82 yo RHD male with history of HTN, HLD, T1DM, RA on immunosuppression who presented to an OSH withAMS/aphasia, found to have 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 Now medically stable and admitted to [facility] on 08/27/22 for intensive PT, OT, speech therapy. Illness Severity Stable [id number] Pt alert, AO x2-3 (knows he's in the hospital but not why, disoriented to time), 4/5 all extremities. Slightly hypotensive, systolic BP 103 - MD notified per parameters, no new orders. On RA, no SOB.PIV to R FA. Cont B/B - BM x1 during shift in BR. ACHS d/t type 1 DM - glucose 126 prior to dinner,no correctional given, pt ate 100% of meal. Skin intact, no pain. CGA w/ FWW * Rylan Hines RN - 08/31/2022 2:56 PM PDT Patient Summary 82 yo RHD male with history of HTN, HLD, T1DM, RA on immunosuppression who presented to an OSH withAMS/aphasia, found to have 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 Now medically stable and admitted to [facility] on 08/27/22 for intensive PT, OT, speech therapy. Edited by: Wilma Perdue RN at 08/28/20221922 [id number] Pt aox 2-3; able to answer city and hospital for place, does not know which hospital. Pt very forgetful. Utilizing call light appropriately. Voiding in bathroom; 1PA CTG w/FWW to restroom. 1x BM large; pastey. Insulin covered as ordered. Bed alarm on, call light within reach. All needs met in real time. Illness Severity Stable Edited by: Wilma Perdue RN at 08/28/20221922 * Leighton Nelson RN - 08/30/2022 7:31 PM PDT Patient Summary 82 yo RHD male with history of HTN, HLD, T1DM, RA on immunosuppression who presented to an OSH withAMS/aphasia, found to have 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 Now medically stable and admitted to [facility] on 08/27/22 for intensive PT, OT, speech therapy. Illness Severity Stable Pt alert and verbalize the needs, move all extremities, use FWW with one person CGA. Skin intact with dryness. Denies pain, VSS, PIV to right FA saline locked, no edema, no s.sx of respiratory distress, spO2 95% RA. General diet with thin liquids, BS 247, insulin given as order, emesis while eatingdinner, 50 gm of carb of snack given. Assisted to BR, failed to collect urine. presents at bedside. Call light within reach, bed alarm on. * Rylan Hines RN - 08/30/2022 3:44 PM PDT Patient Summary 82 yo RHD male with history of HTN, HLD, T1DM, RA on immunosuppression who presented to an OSH withAMS/aphasia, found to have 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 Now medically stable and admitted to [facility] on 08/27/22 for intensive PT, OT, speech therapy. Edited by: Wilma Perdue RN at 08/28/20221922 [id number] Pt aox4, vss, on ra. Pt had hyperglycemic event this am. BG POCT check was 501. Pt down to 128 thisafternoon. Breakfast nutritional insulin held, and lunch time nutritional insulin held by . Pt denies s/s of hyperglycemia, awake and alert, no blurry vision, headache or tingling. Pt able to work with therapies. Bed in low locked position. 1PA CTG assist with FWW to restroom. Covid sample collect ed. Illness Severity Stable Edited by: Wilma Perdue RN at 08/28/20221922 * Elizabeth Manzo RN - 08/30/2022 6:45 AM PDT [id number] 82 yo RHD male with history of HTN, HLD, T1DM, RA on immunosuppression who presented to an OSH withAMS/aphasia, found to have 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 Now medically stable and admitted to [facility] on 08/27/22 . Patient is AOX4, forgetful,unaware of his own safety, moves all extremities, follows commands and redirectable and was cooperative with care last night. Vitals are stable and afebrile,, RFA PIV saline locked. No apparent respiratory distress noted,saturating at 97 % in room air. Patient has carbohydrate managed regular diet and thin liquids,takes pills whole with water, patient is 1:1 feeder. Patient is continent of bowel and bladder. Patient is able to reposition in bed and needs 1 person CGA to aambulate with his FWW. Patient denied any pain or discomfort. Patient slept well last night. Patient has bed in low position,call light at easy reach, blood sugar at 2100 was 72, hypogylcemia protocol was observed,4 OZ of OJ was given and blood sugarr became 133, blood sugar this morning at 0600 was 484, Dr was paged, still waiting for resonse, and will pass on to day shift will continuwe to monitor. * Nallely Mccall RN - 08/29/2022 6:08 PM PDT Patient Summary 82 yo RHD male with history of HTN, HLD, T1DM, RA on immunosuppression who presented to an OSH withAMS/aphasia, found to have 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 Now medically stable and admitted to [facility] on 08/27/22 for intensive PT, OT, speech therapy. 5453-5514: A/O x 4, forgetful, benefits from cues, afebrile, on RA, denies pain, VSS. BG AC/HS withcarb counting. Evening meal carbs 51g. 5 units insulin given per order. BG 93. 1:1 feed, meds PO with thins. Left side weak, 1 PA FWW w/ CGA. Cont of B/B. Bed alarm for safety, appropriate. Call light in reach. No new issues. Illness Severity Stable * Monae Griffin, MARTINEZ - 08/29/2022 12:41 PM PDT Patient Summary 82 yo RHD male with history of HTN, HLD, T1DM, RA on immunosuppression who presented to an OSH withAMS/aphasia, found to have 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 Now medically stable and admitted to [facility] on 08/27/22 for intensive PT, OT, speech therapy. Edited by: Monae Griffin RN at 08/29/2022 1242 Illness Severity Stable Edited by: Wilma Perdue RN at 08/28/2022 1923 * Cici Grijalva RN - 08/29/2022 6:02 AM PDT Patient Summary 82 yo RHD male with history of HTN, HLD, T1DM, RA on immunosuppression who presented to an OSH withAMS/aphasia, found to have 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 Now medically stable and admitted to [facility] on 08/27/22 for intensive PT, OT, speech therapy. Assumed care at 23:00 Neuro: A&Ox3, word finding issues, expressive aphasia, short term memory loss, KEEN 4/5. CV: VSS, afebrile, RUE PIV 20G patent, removed LUE PIV. Resp: On RA, no s/s respiratory distress. GI: Regular diet, thin liquids. Meds one at a time with thins. INC bowel. Soft BM x2 this shift. : Mixed continence via urinal. Skin: Has red patch of skin irritation in LLQ and redness in kim area. Pain: No reports of pain this shift. Mobility: 1PA CGA FWW to BR. Turns self. Safety: Bed in lowest position, bed alarm on, Q2 rounding. Impulsive at times * Wilma Perdue RN - 08/28/2022 9:45 PM PDT Patient Summary 82 yo RHD male with history of HTN, HLD, T1DM, RA on immunosuppression who presented to an OSH withAMS/aphasia, found to have 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 Now medically stable and admitted to [facility] on 08/27/22 for intensive PT, OT, speech therapy. [id number] Neuro: A&Ox3, word finding issues, expressive aphasia, short term memory loss, KEEN 4/5. CV: VSS, afebrile, RUE PIV 20G patent, removed LUE PIV. Resp: On RA, no s/s respiratory distress. GI: Regular diet, thin liquids. BG AC/HS, BG 76 @HS, gave snack, up to 92. Team is adjusting insulin since high BG this morning. Feeds self. Meds one at a time with thins. INC bowel. Soft BM x2 this shift. : Mixed continence via urinal. Skin: Has red patch of skin irritation in LLQ and redness in kim area. Pain: No reports of pain this shift. Mobility: 1PA CGA FWW to BR. Turns self. Safety: Bed in lowest position, bed alarm on, Q2 rounding. Impulsive at times. Illness Severity Stable * Monae Griffin RN - 08/28/2022 2:14 PM PDT Patient Summary 82 yo RHD male with history of HTN, HLD, T1DM, RA on immunosuppression who presented to an OSH withAMS/aphasia, found to have 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 Now medically stable and admitted to [facility] on 08/27/22 for intensive PT, OT, speech therapy. Edited by: iWlma Perdue RN at 08/27/20222211 Illness Severity Stable Edited by: Wilma Perdue RN at 08/27/20222211 * Maura Miller RN - 08/27/2022 10:43 PM PDT Patient Summary 82 yo RHD male with history of HTN, HLD, T1DM, RA on immunosuppression who presented to an OSH withAMS/aphasia, found to have 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 Now medically stable and admitted to [facility] on 08/27/22 for intensive PT, OT, speech therapy. [id number]: Pt arrived in bed from [facility] around 2029. VSS. Knows year, that he's had a stroke, that's he's at a hospital in [place] but needed a little help with the name. Some word finding effort. Kelly, did not get OOB this shift, used urinal appropriately. Bed alarm on, pt able to show me he knew how to use call light. Belongings locked up in closet. Advil and inhaler from home sent to pt valuables. PIVbilat flushed/ patent. HS CS 119, no sliding scale and had an HS snack of yogurt. Meds whole one jo time with thins. Turns self. Bottom without redness, wanted to sleep with pull up on. Illness Severity Stable documented in this encounter Miscellaneous Notes * Rehab Individualized Overall Plan of Care - Souleymane Park DO - 08/29/2022 4:08 PM PDT Physical Medicine and Rehabilitation Individualized Overall Plan of Care In brief, Kendall Lopez is a 82 year-old RHD male with history of HTN, HLD, T1DM, RA on immunosuppression who presented to an OSH with AMS/aphasia, found to have 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 Primary Rehab (Etiologic) Diagnosis: Cerebrovascular accident (CVA) of left basal ganglia (HCC) I have independently evaluated and examined the patient. This patient will require close daily supervision from a rehabilitation physician and would benefit from an interdisciplinary rehab team approach with the following anticipated interventions: -Rehabilitation medicine physician for daily monitoring of care, 24 hour availability for acute medical issues, medication management, and therapeutic and diagnostic assessments. -24 hour rehabilitation nursing 7 days per week for: management/teaching of medications, bowel/bladder routine, skin care. PT for 1-2 hours per day 5-6 days/week, days 1-ELOS OT for 1-2 hours per day 5-6 days/week, days 1-ELOS [employer] for 1-2 hours per day 4-6 days/week, days 1-ELOS Recreational Therapy for community reintegration and transportation Rehabilitation Psychology for: Adjustment to diagnosis. 2 days per week, 1 hour per day for discharge planning, community resources, and family support The patient's medical prognosis is good to achieve the stated goals below. Cultural Considerations:- Functional Goals to be achieved during Intensive Rehabilitation Program: PT Discharge Goals (last 96 hours) Rehab PT Discharge Goals - ThuAugust 28, 2022 Row Name 0734 Bed Mobility Goal Details Independent bed mobility LTG Time Frame By discharge Transfers Goal Details Independent sit to stand with LRAD LTG Time Frame By discharge Indoor Ambulation Goal Details Independent household mobility with LRAD LTG Time Frame By discharge Outdoor Ambulation Goal Details Able to negotiate a ramp and basic non-level terrain with LRAD and SBA LTG Time Frame By discharge Stairs Goal Details Able to negotiate up and down 12 steps with one rail with SBA LTG Time Frame By discharge Floor Recovery Goal Details Able to manage floor recovery with a transitional surface and SBA LTG Time Frame By discharge OT Discharge Goals (last 96 hours) Rehab OT Discharge Goals - [facility] August 28, 2022 Row Name 0704 Feeding Discharge Goal Level of Assist Independent Grooming Discharge Goal Level of Assist Independent Upper Body Dressing Discharge Goal Level of Assist Independent Lower Body Dressing Discharge Goal Details from bed level Discharge Goal Level of Assist Independent Bathing Discharge Goal Level of Assist Supervision / Stand by assistance Toileting Discharge Goal Level of Assist Supervision / Stand by assistance Toilet Transfers Discharge Goal Level of Assist Supervision / Stand by assistance Tub/Shower Transfers Discharge Goal Level of Assist Supervision / Stand by assistance [employer] Discharge Goals (last 96 hours) Rehab [employer] Discharge Goals - Rosa [facility] August 28, 2022 Row Name 1115 Discharge Goal - Education Patient/caregiver will participate in education regarding Dysphagia;Aphasia;Cognition;CVA Discharge Goal - Free Text Goal Pt will utilize compensatory strategies for memory in functional tasks with 80% accuracy Discharge Goal - Free Text Goal Pt will utilize word finding strategies in converstaion w min A Patient requires and can tolerate 3 hours of therapy per day, will participate in therapy and has sufficient carryover to benefit from rehabilitation. Anticipated Discharge Destination:home Discharge Plan: home with family Estimated Length of Stay: 10-14 days [place]le[place]ane [place] DO 08/29/2022 * Rehab Preadmission Screening - Kassy Snyder RN - 08/27/2022 11:43 AM PDT Physical Medicine and Rehabilitation Preadmission Screening Rehab Physician's Review and Admission Determination: Kendall Lopez is a 82 year old male who needs acute inpatient rehabilitation in order to achieve the functional goals outlined below. He requires close rehabilitation physician monitoring and management due to his complex medical conditions and co-morbidities with the primary indication of: Stroke: 01.3 Bilateral involvement. Comorbid conditions that will impact course of rehabilitation: HTN,HLD, T1DM, chronic pericardial effusion, RA on immunosuppression, asthma, ARNAV. He requires 24-hour rehabilitation nursing to manage bowel and bladder function, skin care, nutrition and fluid intake, p ulmonary hygiene, pain control, safety, medication management, and patient/family goals. In addition, rehabilitation nursing will reiterate and reinforce therapy skills and equipment use, including ADLs, as well as provide education to the patient and family. Kendall Lopez is willing to participate in and is able to tolerate the proposed plan of care. History of Present Illness: Kendall Lopez is an 82-year-old right-handed male with history of HTN, HLD, T1DM, chronic pericardial effusion, RA on immunosuppression and asthma, who presented to an OSH with AMS/aphasia. The pt was found to have acute left basal ganglia and thalamus infarcts and subacute right centrum semiovaland old right frontal infarcts. Of note, Mr. Lopez was found to have a right frontal infarct in the MCA/AYLIN territory in June, with stroke work-up at the time notable for a small aortic mass. Thepatient was given aspirin and started on heparin drip at the OSH, then transferred to [facility] on 08/19/22 for further evaluation. Kendall reported that he had been more forgetful in the 3 days prior to admission, and had more difficulty walking due to dizziness. He underwent extensive work-up and etiologywas thought to be consistent with atherosclerotic disease, now only on aspirin. Atrial mass was notredemonstrated on TTE. The remainder of his hospital course is notable for TTE demonstrating chronic pericardial effusion and pleural effusion without signs/symptoms of hemodynamic compromise, for which he will follow-up with cardiology outpatient. Mr. Lopez is now medically stable and participating well with therapies. He has been evaluated by Rehab Medicine and is recommended for inpatientrehabilitation. Patient's hospital course is listed by problem list / systems below: Stroke: Acute L BG + Thalamic Infarct, suspect cardioembolic etiology. History of old right frontalinfarct, subacute right centrum semioval infarct. Acute/subacute ischemic infarcts in bilateral hemispheres in multiple territories with unknown etiology, currently undergoing extensive workup for feng rce. TTE was negative for atrial mass, which was initial suspicion for a cardioembolic source. Blood cx NGTD and no s/sx of infection, making infective endocarditis very unlikely currently. MRI blackblood had findings most consistent with atherosclerotic changes, with no evidence of vasculitis or other inflammatory process, r/o RA vasculitis. APS labs negative. CT C/A/P overall unremarkable, x1 5mm indeterminate lung nodule and calcified granulomas. Repeat TCD negative. Will work to obtain OSHecho images to ensure there was no prior mass seen. Continue neuro checks with VS monitoring. Continue goals for normotension, normothermia, eunatremia- goal 135-145, and euglycemia: BG <180. The pt remains on ASA 325mg daily and DVT ppx - SQH [id number]. [employer] cleared patient for PO intake with supervision DMT1, A1c 6.2: Home regimen glargine 15u qhs, 1u:20cal. Seems mostly good control at home. Will cont to monitor BG control on current regimen. Appreciate endocrinology recs/assistance as needed. Continue Glargine 18u Q AM, nutritional insulin 1u:10 carbs TID before meals and LDSSI with meals and Q HS. The pt's recent BG range is 79-221. CHRONIC // RESOLVED // STABLE: Chronic Moderate-Large Pericardial Effusion Chronic Bilateral Pleural Effusion TTE redmonstrated pericardial effusion and pleural effusion which have been present for >2 yearsbased on chart review. Cardiology not concerned and no s/sx of hemodynamic compromise or tamponade.Plan for further monitor outpatient w/ his rn trauma. - outpatient f/u and eval ARNAV - improved: Unclear baseline sCr - though prior Cr 1.1 a year ago. Cr 1.32 on admission, now 1.15 on 02/27/22. HLD: Rosuvastatin 5mg Rheumatoid Arthritis: Patient does not endorse any arthritic pain or flare-up episode. To maintain optimal immunosuppression, restarted home RA meds. Continue sulfasalazine and hydroxychloroquine Asthma, stable: Pt uses fluticasone/salmetrol at home; DuoNeb prn ordered Covid-19 Surveillance: Negative surveillance swab on 08/27/22. Pt was given the [employer] vaccine for Covid-19 on 03/29/20 and 04/21/20 with boosters on 12/12/20 and12/23/21. VTE Prophylaxis: Heparin 5,000 units Q 12 hours SQ Code Status: Full Code Please see rehab MD initial note for additional information. Prior Functional Status: After his after CVA in June, Mr. Lopez was using 4WW and walking sticks. He was ambulatory without AD for about a week prior to admission; not driving Current Functional Status: Grooming: Contact guard assist (touching/steadying assistance); Position- standing at sinkside. Pt requires cues for sequencing Upper Body Dressing: Set up or clean up assistance to change gown Lower Body Dressing: Minimum Assist (less than 25% help needed) to doff soiled brief and don clean brief; assist to thread BLE Toileting: Supervision / Stand by assistance; set-up for hygiene. Sit<>Stand: Contact guard assist (touching/steadying assistance); Front wheeled walker used with verbal and tactile cueing Toilet Transfer: Minimum Assist (less than 25% help needed); Grab bars and front wheeled walker used with cues for hand placement Ambulation/ Distance: Distance 100'; Contact guard assist (touching/steadying assistance) to Minimum Assist (less than 25% help needed). Front wheeled walker used Gait quality/descriptors: Decreased foot clearance, step length and pace, antalgic, downward gaze. Increased assist for managing FWW with directional changes Bladder: Continent Bowel: Continent Cognition: Impaired Recommendations from Discharge Summary: Medications: See Discharge Summary Prior Medical History: HTN HLD T1DM RA on immunosuppression Asthma Osteoporosis Chronic anemia CVA in June Surgical History: Not on file Psychosocial information (including prior living situation, home environment): Mr. Lopez lives in [place], [place] with his spouse in a multilevel home with 3STE, one flight ofstairs in the house. Mr. Lopez lives in [facility] with his spouse in the winter. He has 2 adult children. 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 Other chart note reported that pt worked at [employer]. Leisure and Hobbies boat racing Habits: Tobacco: Never smoker; Alcohol: 1-2 drinks a week; Drug use: No IVDU, no other substance use Care Recommendations: No Psychiatry / Rehab Psychology care alerts Cultural issues impacting health care: None identified Current level of functioning: PT- 08/26/22: Pt seen this date for mobility progression. He presents w/ L sided weakness and coordination impairments, endorses mild fatigue following OT session and reports things are confusing. He has progressed to CGA for transfers from EOB, Meng for toilet transfers 2/2 low toilet height andup to Meng for mgmt of FWW with directional changes while ambulating. He is an excellent candidate for daily intensive therapy with a goal of optimizing function. Prognosis: Good Evaluation/Treatment Tolerance: Endurance does not limit participation in activity PT recommendation: Inpatient Rehabilitation OT- 08/26/22: Pt participated in skilled OT services to assess and address deficits in ADLs, IADLs and functional mobility. Pt with improved independence in transfers this date compared to previous sessions. However, pt still with limited safety awareness, demo's functional cognition deficits and limited FMC. Pt completed med set assessment with > 50% errors and required significant time for processing instructions. Given deficits, pt will benefit from a discharge environment that can provide assist with ADLs, IADLs and functional mobility as well as daily intensive therapies. Prognosis: Good Evaluation/Treatment Tolerance: Patient tolerated treatment well OT Recommendations: Inpatient Rehabilitation [employer]- 08/20/22: Swallow: Pt is at heightened risk for aspiration in the setting of new acute infarctin the left basal ganglia/thalamus, and evolving infarction in the right frontal region. Pt tolerated hard solids, purees, and single sips of thin liquids with no overt signs of aspiration. Occasional throat clear noted when pt took multiple consecutive sips of thin liquids. Based on current presentation, recommend continuation of regular diet and thin liquids, with 1:1 supervision and cues for small single sips. Given that basal ganglia and thalamic involvement can heighten risk for silent aspiration, recommend close monitoring of respiratory status with a low threshold to make pt NPO and plan for VFSS if any respiratory or aspiration-related concerns arise. [employer] will follow closely. Cognitive-communication: Pt presents with receptive/expressive aphasia (expressive more impaired than receptive), with possible underlying memory/processing speed deficits. Pt is able to follow commands and answer egocentric yes/no questions. He is able to communicate basic wants/needs but with word-finding deficits noted during structured tasks and more complex verbal output. Suspect this is a departure from patient's recent baseline. Recommend assistance with communication-based tasks and iADLS. Pt is a good candidate for daily intensive [employer] intervention if pt has PT/OT goals to support IPR stay. Prognosis: Evaluation/Treatment Tolerance: [employer] Recommendations: Inpatient Rehabilitation Please see most recent PT/OT/[employer] notes for additional information Expected level of improvement/goal for rehab: Expected functional improvement for safe discharge: Bed mobility: Independent Transfers: Mod- I Ambulation: Mod-I with least restrictive device Dressing: Supervision Bathing: Supervision Toileting: Supervision Patient will require supervision with community access. Patient will learn a home exercise program. Patient, family and caregivers will verbalize understanding of brain injury and sequelae to facilitate the patient's awareness of injury and ability to employ compensatory strategies. Patient/family/caregivers will know medications, doses, frequency and indications. Expected length of time for improvement: 10-14 days Anticipated post-discharge destination: Home Funding: Medicare A & B / [employer] Medicare Supplement Special needs or precautions: Fall, Aspiration Precautions Bed alarm for safety - pt is forgetful/impulsive at times Subtle left lower facial droop Mild dysarthria Pt wears corrective lenses Pt reported fuzzy vision, previously noted with nystagmus He is on ACHS glucometer check and carb count with meals OT/PT Daily Recommendations: OOB for meals, encourage seated ADLs, ambulate with FWW 1 PA [employer] Recommendations: Meds whole/halved in puree Aspiration Precautions: Upright at 90 degrees for all oral intake - 1:1 supervision/assistance Fully alert for all PO intake Small bites, small sips and slow rate - One sip at a time Notify [employer] if choking/coughing/wet voice Upright for 30 minutes after eating Cognitive Communication Recommendations: Allow patient breaks as needed Follow consistent routine as able Reorient to location, reason for admit and date as needed Communication Recommendations: Allow automatic function as able Only 1 person should talk at a time Make sure you have patient's attention before speaking to them Keep verbal input short, simple, direct Give patient extra time to respond and speak Try asking simple yes/no questions If patient gets stuck, ask if you may guess;Have [id number] interactions Allergies: Shellfish-derived products Prognosis: Fair Diet: Regular, carbohydrate managed - 1:1 feeding Document % of meal consumed History of Falls: No falls documented during this hospitalization Pressure Injury: No PI documented Recent comorbidities and risks for clinical complications: Comorbidities: HTN, HLD, T1DM, chronic pericardial effusion, RA on immunosuppression, asthma, ARNAV Risks for complications: Falls, DVT/PE, skin breakdown, wound dehiscence, spasticity, contractures,re-bleeding, hypertensive urgency/emergency, seizure, infection, aspiration, respiratory failure Conditions that caused the need for rehabilitation (medical and functional): Dx: 01.3 - Stroke; Bilateral Involvement Impairments: Impaired strength Impaired ROM Impaired coordination Impaired activity tolerance Impaired balance Difficulty ambulating Visual deficit - Pt reporting fuzziness Receptive/expressive aphasia Mild dysarthria Impaired attention Impaired problem solving Impaired safety/judgement Impaired executive function Functional limitations: Impaired mobility Impaired ambulation Impaired ADLs Impaired IADLs Impaired communication Impaired cognition Impaired vision Impaired avocation Impaired architectural access Impaired safety awareness Impaired community reintegration Altered social role Required therapy disciplines (include therapeutic intervention needed): PT for ROM and positioning, strength training, mobility training, gait training, stair training, balance training, endurance training, therapeutic exercise, therapeutic functional activities, equipment assessment, neuromuscular re- education, education highlighting risk reduction for falls and deconditioning and patient/family education/instruction for safety. OT for ROM, ADL training, strength training, cognitive skills development, functional mobility training, neuro-muscular re-education, therapeutic activities, therapeutic exercise, vision screen, homemanagement and patient/family education/instruction including optimizing safety at home. [employer] for ongoing assessment of cognitive communication interventions and strategies and patient/family education/training Rehab nursing for 24 hr point of care monitoring, medication administration/teaching, pain management, stroke education/training, bowel/bladder monitoring and education, incision/wound care and education, diabetic education and management, skin assessment and education, sleep hygiene, respiratory monitoring/management, safety management, VS monitoring, lab monitoring and follow through with rehabplan of care TR for community reintegration and access Rehab psychology for adjustment, coping, neuro-psych testing Social work for discharge planning Expected frequency and duration of treatment: Minimum of 3 hours per day, 5 days per week Anticipated post-discharge treatment needs: Outpatient Rehab clinic f/u, Stroke clinic f/u with [facility]IEF in 3-5 weeks (or next available), Stroke Clinic Attending f/u in 3 months Current vitals, labs, and diagnostic studies: BMI: 20.29 kg/m?? 5' 11 (180.3 cm) as of 08/21/2022 66 kg (145 lb 8.1 oz) as of 08/21/2022 Per PM&R exam 08/25/22: Baseline Neuro Physical exam Mental Status: Orientation: A&O to person, city, and year. Not place or day Language: Speaks slowly in complete sentences Repetition: Able to repeat [place] a rainy city. Immediate recall: 2/3 for honor, extravagant, vigilant Delayed recall: 0/3 for the above words Comprehension: Able to follow one step commands consistently using verbal language alone Concentration: Unable to recite months of the year backwards Neglect: No neglect on tactile and visual double simultaneous presentation. Cranial Nerves: II (Visual Mendiola) Full to finger counting in 4 quadrants II (Visual Acuity) Not assessed II (Pupils R/L) 4mm/4mm reacting to 2mm/2mm II (Fundi) Not assessed III,IV, (EOMS) Normal bilaterally, no clear ptosis V (sensation, mastication) Intact and equal bilaterally VII (facial strength) Normal to grin VIII (hearing) Normal to spoken voice IX, X (palate, phonation) Palate elevates symmetrically XI (sternocleidomastoid, shrug) Symmetric bilaterally to head turn, shoulder shrug XII (tongue protrusion) Midline Motor: Right Left Shoulder abduction (deltoid) 5 5 Elbow flexion (biceps) 5 5 Elbow ext. (triceps) 5 5 Finger flexion (f. digitorum) 5 5 Dorsal and johnston interossei 5 5 Hip flexion (iliopsoas) 5 5 Knee extension (quad femoris) 5 5 Ankle dorsiflexion (Tib ant.) 5 5 Ankle PF (gastroc, danita.) 5 5 Reflexes: R L Biceps 1+ 1+ Brachioradialis 1+ 1+ Patella 1+ 1+ Achilles 1+ 1+ Chamberlain's neg neg Babinski down down Sensory: Light touch: Intact and symmetrical in upper and lower extremities Coordination: No dysmetria bilaterally. Impaired fine motor coordination noted with left FTN. Imaging: CT Chest w Contrast 08/22/22: IMPRESSION A 5 mm nodule in the right lower lobe, indeterminate in etiology. A follow-up CT chest could be considered in 3 months for continued evaluation. Small bilateral pleural effusions with compressive atelectasis. Moderate pericardial effusion with no evidence of tamponade physiology. MRI Brain 24 Hr Stroke 08/21/22: IMPRESSION 1. Acute infarct involving the left thalamus with subacute infarct in the right AYLIN territory. 2. Old left basal ganglia hemorrhage. 3. Moderate volume loss and microvascular ischemic changes. 4. Scattered nonocclusive eccentric enhancing intracranial plaques most compatible with atherosclerosis. No evidence of infectious or inflammatory vasculitis. Pre-admission screener review: Kendall Lopez is an 82-year-old RHD male with history of HTN, HLD, T1DM, chronic pericardial effusion, RA on immunosuppression and asthma, who presented to an OSH with AMS/aphasia, found to have 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 Inpatient Rehabilitation is recommended due to this patient's complexity of nursing, medical, and rehabilitation needs. Patient is anticipated to require intensive services and interdisciplinary care, be able to participate and benefit, and make practical gains in a reasonable time frame. Patient was determined to have appropriate therapy goals and complex rehab needs requiring intensive therapy intervention and interdisciplinary approach to optimize functional outcome for a safe discharge homewith his . During therapy sessions, patient has shown adequate participation, benefit and motivation for rehab level program. Physician rationale for rehab: Please see rehab MD addendum. Associated attestation - Jeannie Irizarry MD - 08/27/2022 11:56 AM PDT Physical Medicine and Rehabilitation Preadmission Screening I have reviewed and agree with this preadmission screen. The patient is an excellent candidate for inpatient rehabilitation due to his complex medical condition bilateral stroke, including Cerebrovascular accident (CVA) of left basal ganglia (HCC) and right frontal infarct with multidisciplinary daniel abilitation goals, and I expect good functional improvement with a comprehensive rehabilitation program. The patient requires oversight of a rehabilitation physician, 24-hour rehabilitation nursing, and multidisciplinary skilled therapies. documented in this encounter Plan of Treatment Upcoming Encounters Date Type Specialty Care Team Description 09/23/2022 Telemedicine Neurology Halina Buckley ARNP [id number] [place] [address] 12/09/2022 Telemedicine Neurology Refugio Dobbs MD [id number] [place] [address] Pending Results Name Type Priority Associated Diagnoses Date /Time MICRO/SEROLOGY SENDOUT Microbiology Routine 09/11/2022 2:35 PM PDT Scheduled Orders Name Type Priority Associated Diagnoses Orde r Schedule NURSING COMMUNICATION Procedures Routine Type 1 diabetes mellitus without complication (HCC) Ordered: 09/12/2022 Scheduled Referrals Name Type Priority Associated Diagnoses Orde r Schedule Referral to Physical Therapy - Neurologic (TBI, SCI, MS, Stroke) Referral Routine Cerebrovascular accident (CVA) of left basal ganglia (HCC) Acute cerebral infarction (HCC) Expected: 09/01/2022, Expires: 09/02/2023 Referral to OT Occupational Therapy Referral Routine Cerebrovascular accident (CVA) of left basal ganglia (HCC) Acute cerebral infarction (HCC) Expected: 09/01/2022, Expires: 09/02/2023 Referral to Speech Therapy Referral Routine Cerebrovascular accident (CVA) of left basal ganglia (HCC) Acute cerebral infarction (HCC) Expected: 09/01/2022, Expires: 09/02/2023 Referral to Neurology Referral Routine Cerebrovascular accident (CVA) of left basal ganglia (HCC) Acute cerebral infarction (HCC) Expected: 09/08/2022, Expires: 09/09/2023 Referral to Neurology Referral Routine Cerebrovascular accident (CVA) of left basal ganglia (HCC) Acute cerebral infarction (HCC) Expected: 09/08/2022, Expires: 09/09/2023 Referral to Cardiology Referral Routine Pericardial effusion Expected: 09/08/2022, Expires: 09/09/2023 Referral to Endocrinology-Diabetes Referral Routine Type 1 diabetes mellitus without complication (HCC) Expected: 09/08/2022, Expires: 09/09/2023 Referral to Rehabilitation Medicine Referral Routine Cerebrovascular accident (CVA) of left basal ganglia (HCC) Acute cerebral infarction (HCC) Expected: 09/08/2022, Expires: 09/09/2023 documented as of this encounter Procedures Procedure Name Priority Date/Time Associated Diagnosis Comments GLUCOSE POC, C Routine 09/12/2022 6:52 AM PDT GLUCOSE POC, C Routine 09/12/2022 2:02 AM PDT GLUCOSE POC, [facility] Routine 09/11/2022 8:40 PM PDT GLUCOSE POC, [facility] Routine 09/11/2022 5:42 PM PDT MICRO/SEROLOGY SENDOUT Routine 09/11/2022 2:35 PM PDT LAB ORDER, MICROBIOLOGY Routine 09/11/2022 12:00 PM PDT GLUCOSE POC, C Routine 09/11/2022 11:2 4 AM PDT 1ST EXTRA LAVENDER TOP Routine 09/11/2022 6:39 AM PDT BASIC METABOLIC PANEL Routine 09/11/2022 6:39 AM PDT GLUCOSE POC, [facility] Routine 09/11/2022 6:37 AM PDT GLUCOSE POC, [facility] Routine 09/11/2022 2:54 AM PDT GLUCOSE POC, [facility] Routine 09/11/2022 2:02 AM PDT GLUCOSE POC, [facility] Routine 09/10/2022 8:29 PM PDT GLUCOSE POC, [facility] Routine 09/10/2022 4:58 PM PDT SARS-COV-2 (COVID-19) QUALITATIVE RAPID PCR STAT 09/10/2022 3:39 PM PDT GLUCOSE POC, [facility] Routine 09/10/2022 12:2 4 PM PDT GLUCOSE POC, [facility] Routine 09/10/2022 6:27 AM PDT GLUCOSE POC, [facility] Routine 09/10/2022 2:03 AM PDT GLUCOSE POC, [facility] Routine 09/09/2022 9:06 PM PDT GLUCOSE POC, [facility] Routine 09/09/2022 5:27 PM PDT GLUCOSE POC, [facility] Routine 09/09/2022 12:1 2 PM PDT GLUCOSE POC, [facility] Routine 09/09/2022 8:24 AM PDT GLUCOSE POC, [facility] Routine 09/09/2022 1:14 AM PDT GLUCOSE POC, [facility] Routine 09/08/2022 8:55 PM PDT GLUCOSE POC, [facility] Routine 09/08/2022 4:16 PM PDT GLUCOSE POC, [facility] Routine 09/08/2022 11:3 3 AM PDT 1ST EXTRA LAVENDER TOP Routine 09/08/2022 11:21 AM PDT BASIC METABOLIC PANEL Routine 09/08/2022 11:21 AM PDT GLUCOSE POC, [facility] Routine 09/08/2022 6:19 AM PDT GLUCOSE POC, [facility] Routine 09/08/2022 1:44 AM PDT GLUCOSE POC, [facility] Routine 09/07/2022 8:14 PM PDT GLUCOSE POC, [facility] Routine 09/07/2022 5:40 PM PDT GLUCOSE POC, [facility] Routine 09/07/2022 11:2 6 AM PDT GLUCOSE POC, [facility] Routine 09/07/2022 6:17 AM PDT GLUCOSE POC, [facility] Routine 09/07/2022 2:00 AM PDT GLUCOSE POC, [facility] Routine 09/06/2022 8:50 PM PDT GLUCOSE POC, [facility] Routine 09/06/2022 6:09 PM PDT GLUCOSE POC, [facility] Routine 09/06/2022 12:3 9 PM PDT GLUCOSE POC, [facility] Routine 09/06/2022 12:0 4 PM PDT COVID-19 CORONAVIRUS QUALITATIVE PCR Routine 09/06/2022 8:22 AM PDT GLUCOSE POC, [facility] Routine 09/06/2022 6:05 AM PDT GLUCOSE POC, [facility] Routine 09/06/2022 2:01 AM PDT GLUCOSE POC, [facility] Routine 09/05/2022 9:48 PM PDT GLUCOSE POC, [facility] Routine 09/05/2022 4:22 PM PDT GLUCOSE POC, [facility] Routine 09/05/2022 12:0 9 PM PDT GLUCOSE POC, [facility] Routine 09/05/2022 6:27 AM PDT GLUCOSE POC, [facility] Routine 09/05/2022 1:53 AM PDT GLUCOSE POC, [facility] Routine 09/04/2022 8:02 PM PDT GLUCOSE POC, [facility] Routine 09/04/2022 5:22 PM PDT GLUCOSE POC, [facility] Routine 09/04/2022 12:0 8 PM PDT BASIC METABOLIC PANEL Routine 09/04/2022 9:48 AM PDT CBC (HEMOGRAM) Routine 09/04/2022 9:48 AM PDT R/O YEAST CULT W/DIRECT EXAM Routine 09/04/2022 9:10 AM PDT R/O YEAST CULT W/DIRECT EXAM Routine 09/04/2022 9:10 AM PDT GLUCOSE POC, C Routine 09/04/2022 6:03 AM PDT GLUCOSE POC, [facility] Routine 09/04/2022 1:47 AM PDT GLUCOSE POC, [facility] Routine 09/03/2022 8:15 PM PDT GLUCOSE POC, [facility] Routine 09/03/2022 4:08 PM PDT GLUCOSE POC, [facility] Routine 09/03/2022 12:0 7 PM PDT GLUCOSE POC, [facility] Routine 09/03/2022 6:01 AM PDT GLUCOSE POC, [facility] Routine 09/03/2022 2:10 AM PDT GLUCOSE POC, [facility] Routine 09/02/2022 9:05 PM PDT GLUCOSE POC, [facility] Routine 09/02/2022 4:57 PM PDT GLUCOSE POC, [facility] Routine 09/02/2022 12:2 2 PM PDT GLUCOSE POC, [facility] Routine 09/02/2022 6:20 AM PDT GLUCOSE POC, [facility] Routine 09/02/2022 1:51 AM PDT GLUCOSE POC, [facility] Routine 09/01/2022 9:41 PM PDT GLUCOSE POC, [facility] Routine 09/01/2022 8:34 PM PDT GLUCOSE POC, [facility] Routine 09/01/2022 5:11 PM PDT 1ST EXTRA LAVENDER TOP Routine 09/01/2022 12:39 PM PDT BASIC METABOLIC PANEL Routine 09/01/2022 12:39 PM PDT GLUCOSE POC, [facility] Routine 09/01/2022 12:1 1 PM PDT GLUCOSE POC, [facility] Routine 09/01/2022 9:49 AM PDT GLUCOSE POC, [facility] Routine 09/01/2022 7:17 AM PDT GLUCOSE POC, [facility] Routine 09/01/2022 6:57 AM PDT GLUCOSE POC, [facility] Routine 09/01/2022 6:38 AM PDT GLUCOSE POC, [facility] Routine 09/01/2022 2:01 AM PDT GLUCOSE POC, [facility] Routine 08/31/2022 8:03 PM PDT GLUCOSE POC, [facility] Routine 08/31/2022 5:37 PM PDT GLUCOSE POC, [facility] Routine 08/31/2022 11:1 8 AM PDT GLUCOSE POC, [facility] Routine 08/31/2022 6:51 AM PDT GLUCOSE POC, [facility] Routine 08/31/2022 3:19 AM PDT FIRST EXTRA URINE YELLOW TOP Routine 08/30/2022 9:30 PM PDT ELECTROLYTES, RANDOM URINE Routine 08/30/2022 9:30 PM PDT OSMOLALITY, URINE Routine 08/30/2022 9:3 0 PM PDT GLUCOSE POC, [facility] Routine 08/30/2022 8:30 PM PDT GLUCOSE POC, [facility] Routine 08/30/2022 6:02 PM PDT GLUCOSE POC, [facility] Routine 08/30/2022 5:24 PM PDT COVID-19 CORONAVIRUS QUALITATIVE PCR Timed 08/30/2022 3:56 PM PDT GLUCOSE POC, [facility] Routine 08/30/2022 3:43 PM PDT GLUCOSE POC, [facility] Routine 08/30/2022 1:51 PM PDT GLUCOSE POC, [facility] Routine 08/30/2022 11:5 1 AM PDT GLUCOSE POC, [facility] Routine 08/30/2022 10:2 1 AM PDT GLUCOSE POC, [facility] Routine 08/30/2022 8:57 AM PDT BASIC METABOLIC PANEL STAT 08/30/2022 7:52 AM PDT GLUCOSE POC, [facility] Routine 08/30/2022 6:50 AM PDT GLUCOSE POC, [facility] Routine 08/30/2022 6:18 AM PDT GLUCOSE POC, [facility] Routine 08/29/2022 9:22 PM PDT GLUCOSE POC, [facility] Routine 08/29/2022 8:19 PM PDT GLUCOSE POC, [facility] Routine 08/29/2022 4:57 PM PDT GLUCOSE POC, [facility] Routine 08/29/2022 12:0 5 PM PDT 1ST EXTRA LAVENDER TOP Routine 08/29/2022 8:11 AM PDT BASIC METABOLIC PANEL Routine 08/29/2022 8:11 AM PDT GLUCOSE POC, [facility] Routine 08/29/2022 7:43 AM PDT GLUCOSE POC, [facility] Routine 08/28/2022 10:1 5 PM PDT GLUCOSE POC, [facility] Routine 08/28/2022 9:22 PM PDT GLUCOSE POC, [facility] Routine 08/28/2022 9:01 PM PDT GLUCOSE POC, [facility] Routine 08/28/2022 8:30 PM PDT GLUCOSE POC, [facility] Routine 08/28/2022 5:16 PM PDT COVID-19 CORONAVIRUS QUALITATIVE PCR Timed 08/28/2022 1:56 PM PDT MICRO/SEROLOGY SENDOUT Routine 08/28/2022 12:20 PM PDT GLUCOSE POC, [facility] Routine 08/28/2022 12:1 5 PM PDT LAB ORDER, MICROBIOLOGY Routine 08/28/2022 11:48 AM PDT GLUCOSE POC, [facility] Routine 08/28/2022 9:46 AM PDT GLUCOSE POC, [facility] Routine 08/28/2022 9:29 AM PDT GLUCOSE POC, [facility] Routine 08/28/2022 6:47 AM PDT GLUCOSE POC, [facility] Routine 08/28/2022 6:35 AM PDT GLUCOSE POC, [facility] Routine 08/28/2022 6:32 AM PDT GLUCOSE POC, [facility] Routine 08/27/2022 9:13 PM PDT documented in this encounter Results * (ABNORMAL) POC Glucose, Whole Blood - C (09/12/2022 6:52 AM PDT) Glucose (POC) 190(H) 62 - 125 mg/dL 09/12/2022 6:53 AM PDT C POCT Comment:Fingerstick Whole blood 09/12/2022 6:52 AM PDT 09/12/2022 6:53 AM PDT Souleymane Park DO LAB POINT OF CARE TE ST DOCKED DEVICE UNSOLICITED RESULTS C [address]CT [address] [place] [address] [facility] [address] [place] [address] * (ABNORMAL) POC Glucose, Whole Blood - C (09/12/2022 2:02 AM PDT) Glucose (POC) 126(H) 62 - 125 mg/dL 09/12/2022 2:04 AM PDT [facility] POCT Comment:Fingerstick Whole blood 09/12/2022 2:02 AM PDT 09/12/2022 2:04 AM PDT Souleymane Park DO LAB POINT OF CARE TE ST DOCKED DEVICE UNSOLICITED RESULTS [facility] [id number] [place] [address] [facility] [id number] [place] [address] * (ABNORMAL) POC Glucose, Whole Blood - [facility] (09/11/2022 8:40 PM PDT) Glucose (POC) 269(H) 62 - 125 mg/dL 09/11/2022 8:49 PM PDT C POCT Comment:Fingerstick Whole blood 09/11/2022 8:40 PM PDT 09/11/2022 8:49 PM PDT Souleymane Park DO LAB POINT OF CARE TE ST DOCKED DEVICE UNSOLICITED RESULTS Performing Organization Address [facility] Co de Phone Number [facility] [id number] [place] [address] [facility] [phone] [place] [address] * (ABNORMAL) POC Glucose, Whole Blood - [facility] (09/11/2022 5:42 PM PDT) Glucose (POC) 287(H) 62 - 125 mg/dL 09/11/2022 5:44 PM PDT [facility] POCT Whole blood 09/11/2022 5:42 PM PDT 09/11/2022 5:44 PM PDT Souleymane Park DO LAB POINT OF CARE TE ST DOCKED DEVICE UNSOLICITED RESULTS Performing Organization Address City/[facility]/ZIP Co de Phone Number [facility] [address] [place] [address] [facility] [address] [place] [address] * Lab Add On Order, Microbiology (09/11/2022 12:00 PM PDT) Lab Test Requested C. auris colonization screening bilateral axilla/groin 09/11/2022 12:00 AM PDT [facility] Specimen Type/Descript ion Swab 09/11/2022 12:00 AM PDT [facility] Comment:Axilla Sample To Use Most recent 09/11/2022 12:00 AM PDT [facility] Test Request Status Order Processed 09/11/2022 3:14 PM PDT [facility] Swab (Axilla) 09/11/2022 12: 00 PM PDT Souleymane Park DO LAB BLOOD ORDERABLES [facility] [address] [place] [id number], [id number] [place] [id number] [facility] [address] [place] [id number], [address] [place] [address] * (ABNORMAL) POC Glucose, Whole Blood - [facility] (09/11/2022 11:24 AM PDT) Glucose (POC) 169(H) 62 - 125 mg/dL 09/11/2022 11:28 AM PDT [facility] POCT Whole blood 09/11/2022 11:2 4 AM PDT 09/11/2022 11:28 AM PDT Souleymane Park DO LAB POINT OF CARE TE ST DOCKED DEVICE UNSOLICITED RESULTS [facility] [id number] [place] [address] [facility] [phone] [place] [address] * 1st Extra Lavender Top (09/11/2022 6:39 AM PDT) 1st Extra Lavender Top Additional collection tube 09/11/2022 6:37 AM PDT [facility] Plasma 09/11/2022 6:39 AM PDT 09/11/2022 6:52 AM PDT Souleymane Park DO LAB BLOOD ORDERABLES [facility] [address] [place] [id number], [id number] [place] [address] [facility] [address], [address] [place] [address] * (ABNORMAL) Basic Metabolic Panel (09/11/2022 6:39 AM PDT) Sodium 135 135 - 145 meq/L 09/11/2022 7:26 AM [facility] Med Potassium 4.4 3.6 - 5.2 meq/L 09/11/2022 7:26 AM [facility] Med Chloride 103 98 - 108 meq/L 09/11/2022 7:26 AM [facility] Med Carbon Dioxide, Total 25 22 - 32 meq/L 09/11/2022 7:26 AM [facility] Anion Gap 7 4 - 12 09/11/2022 7:26 AM [facility] Med Glucose 203(H) 62 - 125 mg/dL 09/11/2022 7:26 AM [facility] Med Urea Nitrogen 33(H) 8 - 21 mg/dL 09/11/2022 7:26 AM [facility] Med Creatinine 1.09 0.51 - 1.18 mg/dL 09/11/2022 7:26 AM [facility] Med Calcium 9.3 8.9 - 10.2 mg/dL 09/11/2022 7:26 AM [facility] Med eGFR by CKD-EPI 2020 >60 >59 mL/min/1.7 3_m2 09/11/2022 7:26 AM [facility] Blood 09/11/2022 6:39 AM PDT Souleymane Park DO LAB BLOOD ORDERABLES [facility] [id number], [address] [place] [address] [facility] [address], [address] [place] [address] * (ABNORMAL) POC Glucose, Whole Blood - C (09/11/2022 6:37 AM PDT) Glucose (POC) 239(H) 62 - 125 mg/dL 09/11/2022 6:40 AM PDT C POCT Comment:Fingerstick Whole blood 09/11/2022 6:37 AM PDT 09/11/2022 6:40 AM PDT Souleymane Ligia Xavier LAB POINT OF CARE TE ST DOCKED DEVICE UNSOLICITED RESULTS [facility] [address] [place] [address] [facility] [address] [place] [address] * (ABNORMAL) POC Glucose, Whole Blood - [facility] (09/11/2022 2:54 AM PDT) Glucose (POC) 139(H) 62 - 125 mg/dL 09/11/2022 2:57 AM PDT [facility] POCT Comment:Fingerstick Whole blood 09/11/2022 2:54 AM PDT 09/11/2022 2:57 AM PDT Souleymane Park DO LAB POINT OF CARE TE ST DOCKED DEVICE UNSOLICITED RESULTS [facility] [phone] [place] [address] [facility] [address] [place] [address] * POC Glucose, Whole Blood - C (09/11/2022 2:02 AM PDT) Glucose (POC) 79 62 - 125 mg/dL 09/11/2022 2:05 AM PDT [facility] POCT Comment:Fingerstick Whole blood 09/11/2022 2:02 AM PDT 09/11/2022 2:05 AM PDT Souleymane Park DO LAB POINT OF CARE TE ST DOCKED DEVICE UNSOLICITED RESULTS [facility] [phone] [place] [address] [facility] [address] [place] [address] * (ABNORMAL) POC Glucose, Whole Blood - [facility] (09/10/2022 8:29 PM PDT) [facility] Glucose (POC) 223(H) 62 - 125 mg/dL 09/10/2022 8:31 PM PDT [facility] POCT Comment:Fingerstick Whole blood 09/10/2022 8:29 PM PDT 09/10/2022 8:31 PM PDT Souleymane Park DO LAB POINT OF CARE TE ST DOCKED DEVICE UNSOLICITED RESULTS Performing Organization Address City/[facility]/ZIP Co de Phone Number [facility] [phone] [place] [address] [facility] [phone] [place] [address] * (ABNORMAL) POC Glucose, Whole Blood - [facility] (09/10/2022 4:58 PM PDT) [facility] Glucose (POC) 327(H) 62 - 125 mg/dL 09/10/2022 5:01 PM PDT [facility] POCT Comment:Fingerstick Whole blood 09/10/2022 4:58 PM PDT 09/10/2022 5:01 PM PDT Souleymane Park DO LAB POINT OF CARE TE ST DOCKED DEVICE UNSOLICITED RESULTS [facility] [address] [place] [address] [facility] [address] [place] [address] * SARS-CoV-2 (COVID-19) Qualitative Rapid PCR (09/10/2022 3:39 PM PDT) COVID-19 Coronavirus Qual PCR Specimen Type Nasal swab 09/10/2022 3:27 PM PDT [facility] COVID-19 Coronavirus Qual PCR Result None detected NDET 09/10/2022 5:28 PM PDT [facility] COVID-19 Coronavirus Qual PCR Interpretation This is a negative result. Laboratory testing alone cannot rule out infection, particularly in the presence of clinical risk factors such as symptoms or exposure history. 09/10/2022 5:28 PM PDT [facility] Comment: Testing performed using the Retrace Xpert (TM) Xpress SARS-CoV-2/Flu/RSV Test Kit. See [email or web address] for details. This test is not yet approved or cleared by the [place] FDA. When there are no FDA-approved or cleared tests available, and other criteria are met, FDA can make tests available under an emergency access mechanism called an Emergency Use Authorization (EUA). The EUA for this test is supported by the [place] of Health and Human Service's (HHS's) declaration that circumstances exist to justify the emergency use of in vitro diagnostics for the detection and/or diagnosis of the virus that causes COVID-19. This EUA will remain in effect (meaning this test can be used) for the duration of the COVID-19 declaration justifying emergency of IVDs, unless it is terminated or revoked by FDA (after which the test may no longer be used). COVID-19 Qualitative PCR Indication Admission Surveillance 09/10/2022 3:27 PM PDT [facility] Nasal swab 09/10/2022 3:39 PM PDT Souleymane Park DO LAB BODY FLUIDS AND STOOLS ORDERABLES [facility] [address], [address] [place] [address] [facility] [address] [address], [address] [place] [address] * (ABNORMAL) POC Glucose, Whole Blood - [facility] (09/10/2022 12:24 PM PDT) Glucose (POC) 290(H) 62 - 125 mg/dL 09/10/2022 12:26 PM PDT [facility] POCT Comment:Fingerstick Whole blood 09/10/2022 12:2 4 PM PDT 09/10/2022 12:26 PM PDT Souleymane Park DO LAB POINT OF CARE TE ST DOCKED DEVICE UNSOLICITED RESULTS [facility] [phone] [place] [address] [facility] [address] [place] [address] * POC Glucose, Whole Blood - [facility] (09/10/2022 6:27 AM PDT) Glucose (POC) 119 62 - 125 mg/dL 09/10/2022 6:30 AM PDT [facility] POCT Comment:Fingerstick Whole blood 09/10/2022 6:27 AM PDT 09/10/2022 6:30 AM PDT Souleymane Park DO LAB POINT OF CARE TE ST DOCKED DEVICE UNSOLICITED RESULTS Performing Organization Address [facility]/ZIP Co de Phone Number [facility] [address] [place] [address] [facility] [address] [place] [address] * (ABNORMAL) POC Glucose, Whole Blood - [facility] (09/10/2022 2:03 AM PDT) Glucose (POC) 209(H) 62 - 125 mg/dL 09/10/2022 2:06 AM PDT [facility] POCT Comment:Fingerstick Whole blood 09/10/2022 2:03 AM PDT 09/10/2022 2:06 AM PDT Souleymane Park DO LAB POINT OF CARE TE ST DOCKED DEVICE UNSOLICITED RESULTS [facility] [address] [place] [address] [facility] [address] [place] [address] * (ABNORMAL) POC Glucose, Whole Blood - [facility] (09/09/2022 9:06 PM PDT) Glucose (POC) 183(H) 62 - 125 mg/dL 09/09/2022 9:10 PM PDT C POCT Comment:Fingerstick Whole blood 09/09/2022 9:06 PM PDT 09/09/2022 9:10 PM PDT Souleymaneamando Park LAB POINT OF CARE TE ST DOCKED DEVICE UNSOLICITED RESULTS C [address] [place] [address] [place] [address] * (ABNORMAL) POC Glucose, Whole Blood - [facility] (09/09/2022 5:27 PM PDT) Glucose (POC) 216(H) 62 - 125 mg/dL 09/09/2022 5:37 PM PDT C POCT Comment:Fingerstick Whole blood 09/09/2022 5:27 PM PDT 09/09/2022 5:37 PM PDT Souleymaneamando Park LAB POINT OF CARE TE ST DOCKED DEVICE UNSOLICITED RESULTS C [address]CT [phone] [place] [address] [facility] [address] [place] [address] * (ABNORMAL) POC Glucose, Whole Blood - [facility] (09/09/2022 12:12 PM PDT) Glucose (POC) 273(H) 62 - 125 mg/dL 09/09/2022 12:16 PM PDT C POCT Comment:Fingerstick Whole blood 09/09/2022 12:1 2 PM PDT 09/09/2022 12:16 PM PDT Souleymane Ligia Park DO LAB POINT OF CARE TE ST DOCKED DEVICE UNSOLICITED RESULTS [facility] [phone] [place] [address] [facility] [address] [place] [address] * (ABNORMAL) POC Glucose, Whole Blood - [facility] (09/09/2022 8:24 AM PDT) Glucose (POC) 341(H) 62 - 125 mg/dL 09/09/2022 8:26 AM PDT [facility] POCT Comment:Fingerstick Whole blood 09/09/2022 8:24 AM PDT 09/09/2022 8:26 AM PDT Souleymane Park DO LAB POINT OF CARE TE ST DOCKED DEVICE UNSOLICITED RESULTS Performing Organization Address City/[facility]/ZIP Co de Phone Number [facility] [phone] [place] [address] [facility] [address] [place] [address] * (ABNORMAL) POC Glucose, Whole Blood - [facility] (09/09/2022 1:14 AM PDT) Glucose (POC) 170(H) 62 - 125 mg/dL 09/09/2022 1:19 AM PDT [facility] POCT Comment:Fingerstick Whole blood 09/09/2022 1:14 AM PDT 09/09/2022 1:19 AM PDT [place]leymane [place] DO LAB POINT OF CARE TE ST DOCKED DEVICE UNSOLICITED RESULTS [facility] [address] [place] [address] [facility] [id number] [place] [address] * (ABNORMAL) POC Glucose, Whole Blood - [facility] (09/08/2022 8:55 PM PDT) Glucose (POC) 252(H) 62 - 125 mg/dL 09/09/2022 6:22 AM PDT [facility] POCT Whole blood 09/08/2022 8:55 PM PDT 09/09/2022 6:22 AM PDT [place] DO LAB POINT OF CARE TE ST DOCKED DEVICE UNSOLICITED RESULTS C [id number] [place] [id number] [place] [address] * (ABNORMAL) POC Glucose, Whole Blood - [facility] (09/08/2022 4:16 PM PDT) Glucose (POC) 173(H) 62 - 125 mg/dL 09/09/2022 12:40 AM PDT C POCT Comment:Fingerstick Whole blood 09/08/2022 4:16 PM PDT 09/09/2022 12:40 AM PDT [place] DO LAB POINT OF CARE TE ST DOCKED DEVICE UNSOLICITED RESULTS Performing Organization Address [facility]/ZIP Co de Phone Number [facility] [id number] [place] [address] [facility] [phone] [place] [address] * POC Glucose, Whole Blood - [facility] (09/08/2022 11:33 AM PDT) Glucose (POC) 112 62 - 125 mg/dL 09/08/2022 11:35 AM PDT [facility] POCT Whole blood 09/08/2022 11:3 3 AM PDT 09/08/2022 11:35 AM PDT [place] DO LAB POINT OF CARE TE ST DOCKED DEVICE UNSOLICITED RESULTS [facility] [address] [place] [address] [facility] [id number] [place] [address] * 1st Extra Lavender Top (09/08/2022 11:21 AM PDT) 1st Extra Lavender Top Additional collection tube 09/08/2022 11:21 AM PDT [facility] Lab Med Plasma 09/08/2022 11:2 1 AM PDT 09/08/2022 12:03 PM PDT Souleymane Park DO LAB BLOOD ORDERABLES [facility] LAB MED [address] [place] [address], [address] [place] [address] [facility] Lab Med [address], [id number] [place] [address] * (ABNORMAL) Basic Metabolic Panel (09/08/2022 11:21 AM PDT) [facility] Sodium 137 135 - 145 meq/L 09/08/2022 12:38 PM [facility] Lab Med Potassium 4.8 3.6 - 5.2 meq/L 09/08/2022 12:38 PM [facility] Lab Med Chloride 102 98 - 108 meq/L 09/08/2022 12:38 PM [facility] Lab Med Carbon Dioxide, Total 27 22 - 32 meq/L 09/08/2022 12:38 PM [facility] Lab Med Anion Gap 8 4 - 12 09/08/2022 12:38 PM [facility] Lab Med Glucose 89 62 - 125 mg/dL 09/08/2022 12:38 PM [facility] Lab Med Urea Nitrogen 33(H) 8 - 21 mg/dL 09/08/2022 12:38 PM [facility] Lab Med Creatinine 1.40(H) 0.51 - 1.18 mg/dL 09/08/2022 12:38 PM [facility] Lab Med Calcium 9.8 8.9 - 10.2 mg/dL 09/08/2022 12:38 PM [facility] Lab Med eGFR by CKD-EPI 2020 51(L) >59 mL/min/1.7 3_m2 09/08/2022 12:38 PM PDT [facility] Lab Med Blood 09/08/2022 11:2 1 AM PDT Souleymane Park DO LAB BLOOD ORDERABLES [facility] LAB MED [address] [place] [id number], [address] [place] [address] [facility] Lab Med [address] 8[address], [address] [place] [address] * (ABNORMAL) POC Glucose, Whole Blood - [facility] (09/08/2022 6:19 AM PDT) Glucose (POC) 142(H) 62 - 125 mg/dL 09/08/2022 6:22 AM PDT C POCT Comment:Fingerstick Whole blood 09/08/2022 6:19 AM PDT 09/08/2022 6:22 AM PDT Souleymane Park DO LAB POINT OF CARE TE ST DOCKED DEVICE UNSOLICITED RESULTS Performing Organization Address [facility] Co de Phone Number C POCT [address] [place] [address] [place] [address] * POC Glucose, Whole Blood - [facility] (09/08/2022 1:44 AM PDT) Glucose (POC) 123 62 - 125 mg/dL 09/08/2022 2:00 AM PDT C POCT Comment:Fingerstick Whole blood 09/08/2022 1:44 AM PDT 09/08/2022 2:00 AM PDT Souleymane Park DO LAB POINT OF CARE TE ST DOCKED DEVICE UNSOLICITED RESULTS C POCT [address] [phone] [place] [address] [facility] POCT [address] 8[address] [place] [address] * POC Glucose, Whole Blood - C (09/07/2022 8:14 PM PDT) Glucose (POC) 117 62 - 125 mg/dL 09/07/2022 8:21 PM PDT C POCT Comment:Fingerstick Whole blood 09/07/2022 8:14 PM PDT 09/07/2022 8:21 PM PDT Souleymane Park DO LAB POINT OF CARE TE ST DOCKED DEVICE UNSOLICITED RESULTS [facility] POCT [address] [place] [address] [facility] POCT [address] [place] [address] * (ABNORMAL) POC Glucose, Whole Blood - [facility] (09/07/2022 5:40 PM PDT) Glucose (POC) 159(H) 62 - 125 mg/dL 09/07/2022 5:47 PM PDT [facility] POCT Whole blood 09/07/2022 5:40 PM PDT 09/07/2022 5:47 PM PDT Souleymane Park DO LAB POINT OF CARE TE ST DOCKED DEVICE UNSOLICITED RESULTS [facility] [address] 29[address] [place] [address] [facility] POCT [address] [place] [address] * (ABNORMAL) POC Glucose, Whole Blood - [facility] (09/07/2022 11:26 AM PDT) Glucose (POC) 224(H) 62 - 125 mg/dL 09/07/2022 11:30 AM PDT C POCT Comment:Fingerstick Whole blood 09/07/2022 11:2 6 AM PDT 09/07/2022 11:30 AM PDT Souleymane Park DO LAB POINT OF CARE TE ST DOCKED DEVICE UNSOLICITED RESULTS [facility] [address] [place] [address] [facility] POCT [address] [place] [address] * (ABNORMAL) POC Glucose, Whole Blood - [facility] (09/07/2022 6:17 AM PDT) Glucose (POC) 181(H) 62 - 125 mg/dL 09/07/2022 6:21 AM PDT [facility] POCT Comment:Fingerstick Whole blood 09/07/2022 6:17 AM PDT 09/07/2022 6:21 AM PDT Souleymane Park DO LAB POINT OF CARE TE ST DOCKED DEVICE UNSOLICITED RESULTS Performing Organization Address City/[facility]/ZIP Co de Phone Number [facility] [address] [place] [address] [facility] [address]CT [address] [place] [address] * (ABNORMAL) POC Glucose, Whole Blood - [facility] (09/07/2022 2:00 AM PDT) Glucose (POC) 131(H) 62 - 125 mg/dL 09/07/2022 2:04 AM PDT [facility] POCT Comment:Fingerstick Whole blood 09/07/2022 2:00 AM PDT 09/07/2022 2:04 AM PDT Souleymane Park DO LAB POINT OF CARE TE ST DOCKED DEVICE UNSOLICITED RESULTS [facility] [address] [place] [address] [facility] [address]CT [address] 0[address] [place] [address] * (ABNORMAL) POC Glucose, Whole Blood - [facility] (09/06/2022 8:50 PM PDT) Glucose (POC) 251(H) 62 - 125 mg/dL 09/06/2022 8:55 PM PDT [facility] POCT Comment:Fingerstick Whole blood 09/06/2022 8:50 PM PDT 09/06/2022 8:55 PM PDT Souleymane Ligia Xavier CHANCE LAB POINT OF CARE TE ST DOCKED DEVICE UNSOLICITED RESULTS [facility] [address] 6[address] [place] [address] [facility] POCT [address] 55[address] [place] [address] * (ABNORMAL) POC Glucose, Whole Blood - [facility] (09/06/2022 6:09 PM PDT) Glucose (POC) 349(H) 62 - 125 mg/dL 09/06/2022 6:13 PM PDT [facility] POCT Comment:Fingerstick Whole blood 09/06/2022 6:09 PM PDT 09/06/2022 6:13 PM PDT Souleymane Park DO LAB POINT OF CARE TE ST DOCKED DEVICE UNSOLICITED RESULTS Performing Organization Address [facility] Co de Phone Number [facility] [address] [place] [address] [facility] [address] 488[address] [place] [address] * (ABNORMAL) POC Glucose, Whole Blood - [facility] (09/06/2022 12:39 PM PDT) Glucose (POC) 326(H) 62 - 125 mg/dL 09/06/2022 12:45 PM PDT [facility] POCT Comment:Fingerstick Whole blood 09/06/2022 12:3 9 PM PDT 09/06/2022 12:45 PM PDT Souleymane Ligia Xavier CHANCE LAB POINT OF CARE TE ST DOCKED DEVICE UNSOLICITED RESULTS Performing Organization Address City/[facility]/ZIP Co de Phone Number [facility] [address] 10[address] [place] [address] [facility] [address]CT [address] 80[address] [place] [address] * (ABNORMAL) POC Glucose, Whole Blood - [facility] (09/06/2022 12:04 PM PDT) Glucose (POC) 276(H) 62 - 125 mg/dL 09/06/2022 12:46 PM PDT [facility] POCT Whole blood 09/06/2022 12:0 4 PM PDT 09/06/2022 12:46 PM PDT Souleymane Park DO LAB POINT OF CARE TE ST DOCKED DEVICE UNSOLICITED RESULTS [facility] [address] 6[address] [place] [address] [facility] [address]CT [address] 09[address] [place] [address] * COVID-19 Coronavirus Qualitative PCR for Congregate Settings (09/06/2022 8:22 AM PDT) [facility] COVID-19 Coronavirus Qual PCR Specimen Type Nasal swab 09/06/2022 7:54 AM PDT [facility] Lab Med COVID-19 Coronavirus Qual PCR Result None detected NDET 09/06/2022 3:14 PM PDT [facility] COVID-19 Coronavirus Qual PCR Interpretation This is a negative result. Laboratory testing alone cannot rule out infection, particularly in the presence of clinical risk factors such as symptoms or exposure history. 09/06/2022 3:14 PM PDT [facility] COVID Testing Lab Comment: Performed using the Darci (R) SARS-CoV-2 real-time RT-PCR assay. ??Additional details available here: ??[email or web address] This test is not yet approved or cleared by the [place] FDA. When there are no FDA-approved or cleared tests available, and other criteria are met, FDA can make tests available under an emergency access mechanism called an Emergency Use Authorization (EUA). The EUA for this test is supported by the [place] of Health and Human Service's (HHS's) declaration that circumstances exist to justify the emergency use of in vitro diagnostics for the detection and/or diagnosis of the virus that causes COVID-19. This EUA will remain in effect (meaning this test can be used) for the duration of the COVID-19 declaration justifying emergency of IVDs, unless it is terminated or revoked by FDA (after which the test may no longer be used). Nasal swab 09/06/2022 8:22 AM PDT Souleymane Park DO LAB BODY FLUIDS AND STOOLS ORDERABLES Performing Organization Address [facility] Co de Phone Number VIROLOGY COVID TESTING LAB [address] [place] [address] [facility] Lab Med [address] [place] [address], [address] [place] [address] [facility] COVID Testing Lab [address] [place] [address] * (ABNORMAL) POC Glucose, Whole Blood - [facility] (09/06/2022 6:05 AM PDT) Glucose (POC) 243(H) 62 - 125 mg/dL 09/06/2022 6:28 AM PDT [facility] POCT Comment:Fingerstick Whole blood 09/06/2022 6:05 AM PDT 09/06/2022 6:28 AM PDT Souleymane Park DO LAB POINT OF CARE TE ST DOCKED DEVICE UNSOLICITED RESULTS Performing Organization Address [facility] Co de Phone Number [facility] [address] [place] [address] [facility] [address]CT [address] [place] [address] * (ABNORMAL) POC Glucose, Whole Blood - [facility] (09/06/2022 2:01 AM PDT) Glucose (POC) 249(H) 62 - 125 mg/dL 09/06/2022 2:04 AM PDT [facility] POCT Comment:Fingerstick Whole blood 09/06/2022 2:01 AM PDT 09/06/2022 2:04 AM PDT Souleymane Park DO LAB POINT OF CARE TE ST DOCKED DEVICE UNSOLICITED RESULTS [facility] [address] [place] [address] [facility] [address] [place] [address] * (ABNORMAL) POC Glucose, Whole Blood - [facility] (09/05/2022 9:48 PM PDT) Glucose (POC) 198(H) 62 - 125 mg/dL 09/05/2022 9:54 PM PDT [facility] POCT Comment:Post food intake Whole blood 09/05/2022 9:48 PM PDT 09/05/2022 9:54 PM PDT Souleymane Park DO LAB POINT OF CARE TE ST DOCKED DEVICE UNSOLICITED RESULTS Performing Organization Address City/[facility]/ZIP Co de Phone Number [facility] [phone] [place] [address] [facility] [address] 0[address] [place] [address] * POC Glucose, Whole Blood - [facility] (09/05/2022 4:22 PM PDT) Glucose (POC) 98 62 - 125 mg/dL 09/05/2022 4:29 PM PDT [facility] POCT Whole blood 09/05/2022 4:22 PM PDT 09/05/2022 4:29 PM PDT Souleymane Park DO LAB POINT OF CARE TE ST DOCKED DEVICE UNSOLICITED RESULTS [facility] [phone] [place] [address] [facility] [address] [place] [address] * (ABNORMAL) POC Glucose, Whole Blood - C (09/05/2022 12:09 PM PDT) Glucose (POC) 300(H) 62 - 125 mg/dL 09/05/2022 12:12 PM PDT [facility] POCT Comment:Fingerstick Whole blood 09/05/2022 12:0 9 PM PDT 09/05/2022 12:12 PM PDT Souleymane Park DO LAB POINT OF CARE TE ST DOCKED DEVICE UNSOLICITED RESULTS [facility] [address] [place] [address] [facility] [address] 00[address] [place] [address] * POC Glucose, Whole Blood - [facility] (09/05/2022 6:27 AM PDT) Glucose (POC) 109 62 - 125 mg/dL 09/05/2022 6:32 AM PDT [facility] POCT Comment:Fingerstick Whole blood 09/05/2022 6:27 AM PDT 09/05/2022 6:32 AM PDT Souleymane Park DO LAB POINT OF CARE TE ST DOCKED DEVICE UNSOLICITED RESULTS Performing Organization Address [facility]/ZIP Co de Phone Number [facility] [address] [place] [address] [facility] [address] [place] [address] * POC Glucose, Whole Blood - [facility] (09/05/2022 1:53 AM PDT) Glucose (POC) 113 62 - 125 mg/dL 09/05/2022 1:55 AM PDT [facility] POCT Comment:Fingerstick Whole blood 09/05/2022 1:53 AM PDT 09/05/2022 1:55 AM PDT Souleymane Park DO LAB POINT OF CARE TE ST DOCKED DEVICE UNSOLICITED RESULTS [facility] [address] [place] [address] [address] [place] [address] * POC Glucose, Whole Blood - [facility] (09/04/2022 8:02 PM PDT) Glucose (POC) 122 62 - 125 mg/dL 09/04/2022 8:14 PM PDT [facility] POCT Comment:Fingerstick Whole blood 09/04/2022 8:02 PM PDT 09/04/2022 8:14 PM PDT Souleymane Park DO LAB POINT OF CARE TE ST DOCKED DEVICE UNSOLICITED RESULTS [facility] [address] [place] [address] [facility] [address] 59[address] [place] [address] * POC Glucose, Whole Blood - [facility] (09/04/2022 5:22 PM PDT) Glucose (POC) 99 62 - 125 mg/dL 09/05/2022 6:32 AM PDT [facility] POCT Comment:Fingerstick Whole blood 09/04/2022 5:22 PM PDT 09/05/2022 6:32 AM PDT Souleymane Park DO LAB POINT OF CARE TE ST DOCKED DEVICE UNSOLICITED RESULTS Performing Organization Address [facility] Co de Phone Number [facility] [address] [place] [address] [facility] [address] [place] [address] * (ABNORMAL) POC Glucose, Whole Blood - [facility] (09/04/2022 12:08 PM PDT) Glucose (POC) 141(H) 62 - 125 mg/dL 09/04/2022 12:11 PM PDT [facility] POCT Comment:Fingerstick Whole blood 09/04/2022 12:0 8 PM PDT 09/04/2022 12:11 PM PDT Souleymane Park DO LAB POINT OF CARE TE ST DOCKED DEVICE UNSOLICITED RESULTS [facility] [address] [place] [address] [facility] [address] 49[address] [place] [address] * (ABNORMAL) Basic Metabolic Panel (09/04/2022 9:48 AM PDT) Sodium 131(L) 135 - 145 meq/L 09/04/2022 10:48 AM [facility] Lab Med Potassium 4.0 3.6 - 5.2 meq/L 09/04/2022 10:48 AM [facility] Lab Med Chloride 99 98 - 108 meq/L 09/04/2022 10:48 AM [facility] Lab Med Carbon Dioxide, Total 24 22 - 32 meq/L 09/04/2022 10:48 AM [facility] Lab Med Anion Gap 8 4 - 12 09/04/2022 10:48 AM [facility] Lab Med Glucose 331(H) 62 - 125 mg/dL 09/04/2022 10:48 AM [facility] Lab Med Urea Nitrogen 31(H) 8 - 21 mg/dL 09/04/2022 10:48 AM [facility] Lab Med Creatinine 1.21(H) 0.51 - 1.18 mg/dL 09/04/2022 10:48 AM [facility] Lab Med Calcium 9.2 8.9 - 10.2 mg/dL 09/04/2022 10:48 AM [facility] Lab Med eGFR by CKD-EPI 2020 >60 >59 mL/min/1.7 3_m2 09/04/2022 10:48 AM [facility] Lab Med Blood 09/04/2022 9:48 AM PDT Souleymane Park DO LAB BLOOD ORDERABLES [facility] LAB MED [address] [place] [address], [id number] [place] [address] [facility] Lab Med [address] [place] [address], [id number] [place] [address] * (ABNORMAL) CBC (09/04/2022 9:48 AM PDT) WBC 9.08 4.3 - 10.0 10*3/uL 09/04/2022 10:07 AM PDT [facility] Lab Med RBC 3.18(L) 4.40 - 5.60 10*6/uL 09/04/2022 10:07 AM PDT [facility] Lab Med Hemoglobin 10.7(L) 13.0 - 18.0 g/dL 09/04/2022 10:07 AM PDT [facility] Lab Med Hematocrit 32(L) 38.0 - 50.0 % 09/04/2022 10:07 AM PDT [facility] Lab Med MCV 100(H) 81 - 98 fL 09/04/2022 10:07 AM PDT [facility] Lab Med MCH 33.6 27.3 - 33.6 pg 09/04/2022 10:07 AM PDT [facility] Lab Med MCHC 33.6 32.2 - 36.5 g/dL 09/04/2022 10:07 AM PDT [facility] Lab Med Platelet Count 217 150 - 400 10*3/uL 09/04/2022 10:07 AM PDT [facility] Lab Med RDW-CV 14.1 11.0 - 14.5 % 09/04/2022 10:07 AM PDT [facility] Lab Med Blood 09/04/2022 9:48 AM PDT Souleymane Park DO LAB BLOOD ORDERABLES [facility] LAB MED [id number], [id number] [place] [id number] [facility] Lab Med [address] [place] [address], [id number] [place] [address] * Culture Yeast w/ Stain (09/04/2022 9:10 AM PDT) Special Requests No special requests 09/04/2022 6:52 AM PDT [facility] Lab Med Stain For Fungus No fungal elements seen 09/04/2022 7:27 PM PDT [facility] Dept of Lab Med Culture No fungus isolated in 5 days 09/09/2022 4:28 PM PDT [facility] DEPT OF LAB MED Swab (Nares) 09/04/2022 9:10 AM PDT 09/04/2022 11:51 AM PDT Comment:Bilateral axilla/marla in Souleymane Park DO MICROBIOLOGY Performing Organization Address [facility]/ZIP Co de Phone Number [facility] DEPT OF LAB MED 1956 [facility] [place] [id number] [place] [address] [facility] Lab Med [address] [place] [address], [id number] [facility] Dept of Lab Med 1956 [facility] [place] 402245 [place] * (ABNORMAL) Culture Yeast w/ Stain (09/04/2022 9:10 AM PDT) Special Requests No special requests 09/04/2022 6:52 AM PDT [facility] Lab Med Stain For Fungus 2+ Yeast (A) 09/04/2022 5:15 PM PDT [facility] Dept of Lab Med Culture No fungus isolated in 5 days 09/09/2022 4:10 PM PDT [facility] DEPT OF LAB MED Swab (Nares) 09/04/2022 9:10 AM PDT 09/04/2022 11:51 AM PDT Comment:Nares Souleymane Park DO MICROBIOLOGY Performing Organization Address City/[facility]/ZIP Co de Phone Number [facility] DEPT OF LAB MED 1956 [facility] [place] [address] [place] [address] [facility] Lab Med [address] [place] [address], [id number] [facility] Dept of Lab Med 1956 [facility] [place] [address] [place] * POC Glucose, Whole Blood - [facility] (09/04/2022 6:03 AM PDT) Glucose (POC) 119 62 - 125 mg/dL 09/04/2022 6:05 AM PDT [facility] POCT Comment:Fingerstick Whole blood 09/04/2022 6:03 AM PDT 09/04/2022 6:05 AM PDT oSuleymane Park DO LAB POINT OF CARE TE ST DOCKED DEVICE UNSOLICITED RESULTS Performing Organization Address City/[facility]/ZIP Co de Phone Number C POCT [address] [place] [address] [facility] [address] [place] [address] * (ABNORMAL) POC Glucose, Whole Blood - C (09/04/2022 1:47 AM PDT) Glucose (POC) 139(H) 62 - 125 mg/dL 09/04/2022 1:48 AM PDT C POCT Comment:Fingerstick Whole blood 09/04/2022 1:47 AM PDT 09/04/2022 1:48 AM PDT Souleymane Park DO LAB POINT OF CARE TE ST DOCKED DEVICE UNSOLICITED RESULTS Performing Organization Address [facility] Co de Phone Number [facility] [address] [place] [address] [address] [place] [address] * POC Glucose, Whole Blood - C (09/03/2022 8:15 PM PDT) Glucose (POC) 91 62 - 125 mg/dL 09/03/2022 8:20 PM PDT C POCT Comment:Fingerstick Whole blood 09/03/2022 8:15 PM PDT 09/03/2022 8:20 PM PDT Souleymane Prak DO LAB POINT OF CARE TE ST DOCKED DEVICE UNSOLICITED RESULTS [facility] [address] [place] [address] [facility] [address] [place] [address] * POC Glucose, Whole Blood - C (09/03/2022 4:08 PM PDT) Glucose (POC) 113 62 - 125 mg/dL 09/03/2022 4:15 PM PDT [facility] POCT Comment:Fingerstick Whole blood 09/03/2022 4:08 PM PDT 09/03/2022 4:15 PM PDT Souleymane Pakr DO LAB POINT OF CARE TE ST DOCKED DEVICE UNSOLICITED RESULTS [facility] [address] [place] [address] [facility] [address] [place] [address] * (ABNORMAL) POC Glucose, Whole Blood - [facility] (09/03/2022 12:07 PM PDT) Glucose (POC) 262(H) 62 - 125 mg/dL 09/03/2022 12:10 PM PDT [facility] POCT Comment:Fingerstick Whole blood 09/03/2022 12:0 7 PM PDT 09/03/2022 12:10 PM PDT Souleymane Park DO LAB POINT OF CARE TE ST DOCKED DEVICE UNSOLICITED RESULTS Performing Organization Address [facility] Co de Phone Number [facility] [address] [place] [address] [facility] [address] [place] [address] * POC Glucose, Whole Blood - [facility] (09/03/2022 6:01 AM PDT) Glucose (POC) 116 62 - 125 mg/dL 09/03/2022 6:06 AM PDT [facility] PO[facility] Comment:Fingerstick Whole blood 09/03/2022 6:01 AM PDT 09/03/2022 6:06 AM PDT [place] DO LAB POINT OF CARE TE ST DOCKED DEVICE UNSOLICITED RESULTS [facility] [address] [place] [phone] [place] [address] [facility] [address] [place] [phone] [place] [address] * (ABNORMAL) POC Glucose, Whole Blood - [facility] (09/03/2022 2:10 AM PDT) Glucose (POC) 139(H) 62 - 125 mg/dL 09/03/2022 2:17 AM PDT C POCT Comment:Fingerstick Whole blood 09/03/2022 2:10 AM PDT 09/03/2022 2:17 AM PDT [place] DO LAB POINT OF CARE TE ST DOCKED DEVICE UNSOLICITED RESULTS [facility] [phone] [place] [address] [facility] [id number] [place] [address] * POC Glucose, Whole Blood - [facility] [place] [facility] [place] (09/02/2022 9:05 PM PDT) Glucose (POC) 117 62 - 125 mg/dL 09/02/2022 9:08 PM PDT C POCT Comment:Fingerstick Whole blood 09/02/2022 9:05 PM PDT 09/02/2022 9:08 PM PDT [facility] LAB POINT OF CARE TE ST DOCKED DEVICE UNSOLICITED RESULTS [facility] [address] [place] [address] [facility] [address] [place] [address] * (ABNORMAL) POC Glucose, Whole Blood - [facility] (09/02/2022 4:57 PM PDT) Glucose (POC) 133(H) 62 - 125 mg/dL 09/02/2022 4:59 PM PDT C POCT Comment:Fingerstick Whole blood 09/02/2022 4:57 PM PDT 09/02/2022 4:59 PM PDT [facility] [place] DO LAB POINT OF CARE TE ST DOCKED DEVICE UNSOLICITED RESULTS [facility] [address] [place] [address] [facility] [address] [place] [address] * (ABNORMAL) POC Glucose, Whole Blood - [facility] (09/02/2022 12:22 PM PDT) Glucose (POC) 266(H) 62 - 125 mg/dL 09/02/2022 12:24 PM PDT [facility] POCT Comment:Fingerstick Whole blood 09/02/2022 12:2 2 PM PDT 09/02/2022 12:24 PM PDT [facility] L Xavier [facility]ANCE LAB POINT OF CARE TE ST DOCKED DEVICE UNSOLICITED RESULTS Performing Organization Address City/[facility]/ZIP Co de Phone Number [facility] [address] [place] [address] [facility] [address] [place] [address] * POC Glucose, Whole Blood - [facility] (09/02/2022 6:20 AM PDT) Glucose (POC) 117 62 - 125 mg/dL 09/02/2022 7:25 AM PDT [facility] POCT Comment:Fingerstick Whole blood 09/02/2022 6:20 AM PDT 09/02/2022 7:25 AM PDT [place] DO LAB POINT OF CARE TE ST DOCKED DEVICE UNSOLICITED RESULTS [facility] [address] [place] [address] [facility] [address] [place] [address] * POC Glucose, Whole Blood - [facility] (09/02/2022 1:51 AM PDT) Glucose (POC) 112 62 - 125 mg/dL 09/02/2022 11:52 AM PDT [facility] POCT Comment:Fingerstick Whole blood 09/02/2022 1:51 AM PDT 09/02/2022 11:52 AM PDT [place] [place] DO LAB POINT OF CARE TE ST DOCKED DEVICE UNSOLICITED RESULTS [facility] [address] [place] [address] [facility] [address] [place] [address] * POC Glucose, Whole Blood - [facility] (09/01/2022 9:41 PM PDT) Glucose (POC) 108 62 - 125 mg/dL 09/02/2022 11:52 AM PDT [facility] POCT Comment:Fingerstick Whole blood 09/01/2022 9:41 PM PDT 09/02/2022 11:52 AM PDT [place] DO LAB POINT OF CARE TE ST DOCKED DEVICE UNSOLICITED RESULTS [facility] [address] [place] [address] [facility] [address] [place] [address] * (ABNORMAL) POC Glucose, Whole Blood - [facility] (09/01/2022 8:34 PM PDT) Glucose (POC) 60(L) 62 - 125 mg/dL 09/02/2022 11:52 AM PDT [facility] POCT Comment:Fingerstick Whole blood 09/01/2022 8:34 PM PDT 09/02/2022 11:52 AM PDT [place] [place] DO LAB POINT OF CARE TE ST DOCKED DEVICE UNSOLICITED RESULTS [facility] [address] [place] [address] [facility] [address] [place] [address] * POC Glucose, Whole Blood - [facility] (09/01/2022 5:11 PM PDT) Glucose (POC) 84 62 - 125 mg/dL 09/02/2022 7:25 AM PDT [facility] POCT Comment:Fingerstick Whole blood 09/01/2022 5:11 PM PDT 09/02/2022 7:25 AM PDT [place] [place] DO LAB POINT OF CARE TE ST DOCKED DEVICE UNSOLICITED RESULTS Performing Organization Address City/[facility]/ZIP Co de Phone Number [facility] [address] [place] [address] [facility] [address] [place] [address] * 1st Extra Lavender Top (09/01/2022 12:39 PM PDT) Pathologist [facility] 1st Extra Lavender Top Additional collection tube 09/01/2022 12:38 PM PDT [facility] Plasma 09/01/2022 12:3 9 PM PDT 09/01/2022 1:34 PM PDT [place] DO LAB BLOOD ORDERABLES [facility] MED [address], [address] [place] [address] [facility] [address], [address] [place] [address] * (ABNORMAL) Basic Metabolic Panel (09/01/2022 12:39 PM PDT) Sodium 132(L) 135 - 145 meq/L 09/01/2022 1:57 PM PDT [facility] Med Potassium 4.6 3.6 - 5.2 meq/L 09/01/2022 1:57 PM PDT [facility] Med Chloride 97(L) 98 - 108 meq/L 09/01/2022 1:57 PM PDT [facility] Med Carbon Dioxide, Total 28 22 - 32 meq/L 09/01/2022 1:57 PM PDT [facility] Med Anion Gap 7 4 - 12 09/01/2022 1:57 PM PDT [facility] Med Glucose 250(H) 62 - 125 mg/dL 09/01/2022 1:57 PM PDT [facility] Med Urea Nitrogen 40(H) 8 - 21 mg/dL 09/01/2022 1:57 PM PDT [facility] Med Creatinine 1.44(H) 0.51 - 1.18 mg/dL 09/01/2022 1:57 PM PDT [facility] Med Calcium 9.9 8.9 - 10.2 mg/dL 09/01/2022 1:57 PM PDT [facility] Med eGFR by CKD-EPI 2020 49(L) >59 mL/min/1.7 3_m2 09/01/2022 1:57 PM PDT [facility] Blood 09/01/2022 12:3 9 PM PDT [place] DO LAB BLOOD ORDERABLES [facility] [address], [address] [place] [phone] [facility] [address], [address] [place] [address] * (ABNORMAL) POC Glucose, Whole Blood - [facility] (09/01/2022 12:11 PM PDT) [facility] Glucose (POC) 236(H) 62 - 125 mg/dL 09/02/2022 7:25 AM PDT [facility] POCT Comment:Fingerstick Whole blood 09/01/2022 12:1 1 PM PDT 09/02/2022 7:25 AM PDT [place] DO LAB POINT OF CARE TE ST DOCKED DEVICE UNSOLICITED RESULTS [facility] [address] [place] [address] [facility] [address] [place] [address] * (ABNORMAL) POC Glucose, Whole Blood - [facility] (09/01/2022 9:49 AM PDT) Glucose (POC) 236(H) 62 - 125 mg/dL 09/02/2022 11:52 AM PDT [facility] POCT Comment:Fingerstick Whole blood 09/01/2022 9:49 AM PDT 09/02/2022 11:52 AM PDT [place] DO LAB POINT OF CARE TE ST DOCKED DEVICE UNSOLICITED RESULTS [facility] [address] [place] [address] [facility] [address] [place] [address] * POC Glucose, Whole Blood - [facility] (09/01/2022 7:17 AM PDT) Glucose (POC) 111 62 - 125 mg/dL 09/01/2022 7:24 AM PDT [facility] POCT Comment:Fingerstick Whole blood 09/01/2022 7:17 AM PDT 09/01/2022 7:24 AM PDT [place] DO LAB POINT OF CARE TE ST DOCKED DEVICE UNSOLICITED RESULTS [facility] [address] [place] [address] [facility] [address] [place] [address] * POC Glucose, Whole Blood - [facility] (09/01/2022 6:57 AM PDT) Glucose (POC) 89 62 - 125 mg/dL 09/01/2022 6:58 AM PDT [facility] POCT Comment:Fingerstick Whole blood 09/01/2022 6:57 AM PDT 09/01/2022 6:58 AM PDT [place] [place] DO LAB POINT OF CARE TE ST DOCKED DEVICE UNSOLICITED RESULTS C [phone] [place] [address] [facility] [address] [place] [address] * POC Glucose, Whole Blood - [facility] (09/01/2022 6:38 AM PDT) Glucose (POC) 83 62 - 125 mg/dL 09/01/2022 6:52 AM PDT C POCT Comment:Fingerstick Whole blood 09/01/2022 6:38 AM PDT 09/01/2022 6:52 AM PDT [place] [place] DO LAB POINT OF CARE TE ST DOCKED DEVICE UNSOLICITED RESULTS Performing Organization Address [facility]/ZIP Co de Phone Number [facility] [address] [place] [address] [facility] [address] [place] [address] * (ABNORMAL) POC Glucose, Whole Blood - [facility] (09/01/2022 2:01 AM PDT) Glucose (POC) 130(H) 62 - 125 mg/dL 09/01/2022 2:03 AM PDT [facility] POCT Comment:Fingerstick Whole blood 09/01/2022 2:01 AM PDT 09/01/2022 2:03 AM PDT [place] [place] DO LAB POINT OF CARE TE ST DOCKED DEVICE UNSOLICITED RESULTS [facility] [address] [place] [address] [facility] [address] [place] [address] * (ABNORMAL) POC Glucose, Whole Blood - C (08/31/2022 8:03 PM PDT) Glucose (POC) 148(H) 62 - 125 mg/dL 08/31/2022 8:19 PM PDT [facility] POCT Comment:Post food intake Whole blood 08/31/2022 8:03 PM PDT 08/31/2022 8:19 PM PDT [place] DO LAB POINT OF CARE TE ST DOCKED DEVICE UNSOLICITED RESULTS [facility] [address] [place] [address] [facility] [address] [place] [address] * (ABNORMAL) POC Glucose, Whole Blood - [facility] (08/31/2022 5:37 PM PDT) Glucose (POC) 126(H) 62 - 125 mg/dL 08/31/2022 5:39 PM PDT [facility] POCT Comment:Fingerstick Whole blood 08/31/2022 5:37 PM PDT 08/31/2022 5:39 PM PDT [place] [place] DO LAB POINT OF CARE TE ST DOCKED DEVICE UNSOLICITED RESULTS Performing Organization Address [facility]/ZIP Co de Phone Number [facility] [address] [place] [address] [facility] [address] [place] [address] * (ABNORMAL) POC Glucose, Whole Blood - [facility] (08/31/2022 11:18 AM PDT) Glucose (POC) 190(H) 62 - 125 mg/dL 08/31/2022 3:47 PM PDT [facility] POCT Comment:Fingerstick Whole blood 08/31/2022 11:1 8 AM PDT 08/31/2022 3:47 PM PDT [place] [place] DO LAB POINT OF CARE TE ST DOCKED DEVICE UNSOLICITED RESULTS [facility] [address] [place] [address] [facility] [address] [place] [address] * (ABNORMAL) POC Glucose, Whole Blood - [facility] (08/31/2022 6:51 AM PDT) Glucose (POC) 152(H) 62 - 125 mg/dL 08/31/2022 3:47 PM PDT [facility] POCT Comment:Fingerstick Whole blood 08/31/2022 6:51 AM PDT 08/31/2022 3:47 PM PDT [place] DO LAB POINT OF CARE TE ST DOCKED DEVICE UNSOLICITED RESULTS [facility] [address] [place] [address] [facility] [address] [place] [address] * (ABNORMAL) POC Glucose, Whole Blood - [facility] (08/31/2022 3:19 AM PDT) Glucose (POC) 139(H) 62 - 125 mg/dL 08/31/2022 7:08 AM PDT [facility] POCT Comment:Fingerstick Whole blood 08/31/2022 3:19 AM PDT 08/31/2022 7:08 AM PDT [place] [place] DO LAB POINT OF CARE TE ST DOCKED DEVICE UNSOLICITED RESULTS Performing Organization Address [facility]/ZIP Co de Phone Number [facility] [address] [place] [address] [facility] [address] [place] [address] * 1st Extra Urine Yellow Top (08/30/2022 9:30 PM PDT) 1st Extra Urine Yellow Top Additional collection tube 08/30/2022 9:34 PM PDT [facility] Urine 08/30/2022 9:30 PM PDT 08/30/2022 9:34 PM PDT [place] DO LAB URINE ORDERABLES [facility] [id number], [id number] [place] [address] [facility] [address], [address] [place] [address] * Electrolytes, Random Urine (08/30/2022 9:30 PM PDT) Sodium, Random Urine 53 meq/L 08/30/2022 9:58 PM PDT [facility] Comment: No reference range for random urine electrolytes. Interpret in conjunction with plasma electrolytes and other clinical information. Potassium, Random Urine 81 meq/L 08/30/2022 9:58 PM PDT [facility] Med Comment: No reference range for random urine electrolytes. Interpret in conjunction with plasma electrolytes and other clinical information. Chloride, Random Urine 54 meq/L 08/30/2022 9:58 PM PDT [facility] Med Comment: No reference range for random urine electrolytes. Interpret in conjunction with plasma electrolytes and other clinical information. Urine 08/30/2022 9:30 PM PDT [place] DO LAB URINE ORDERABLES [facility] MED [address], [id number] [place] [address] [facility] [address], [address] [place] [address] * Osmolality, Urine (08/30/2022 9:30 PM PDT) Osmolality, URN 649 100 - 850 mosm/kg 08/30/2022 9:52 PM PDT [facility] Urine 08/30/2022 9:30 PM PDT [place] DO LAB URINE ORDERABLES [facility] [address], [address] [place] [address] [facility] [address], [address] [place] [address] * (ABNORMAL) POC Glucose, Whole Blood - [facility] (08/30/2022 8:30 PM PDT) Glucose (POC) 234(H) 62 - 125 mg/dL 08/31/2022 6:34 AM PDT [facility] POCT Comment:Post food intake Whole blood 08/30/2022 8:30 PM PDT 08/31/2022 6:34 AM PDT [place] DO LAB POINT OF CARE TE ST DOCKED DEVICE UNSOLICITED RESULTS [facility] [address] [place] [address] [facility] [address] [place] [address] * (ABNORMAL) POC Glucose, Whole Blood - [facility] (08/30/2022 6:02 PM PDT) Glucose (POC) 244(H) 62 - 125 mg/dL 08/31/2022 6:33 AM PDT [facility] POCT Comment:Fingerstick Whole blood 08/30/2022 6:02 PM PDT 08/31/2022 6:33 AM PDT [facility] [place]ia [place] DO LAB POINT OF CARE TE ST DOCKED DEVICE UNSOLICITED RESULTS [facility] [address] [place] [address] [facility] [address] [place] [address] * (ABNORMAL) POC Glucose, Whole Blood - [facility] (08/30/2022 5:24 PM PDT) Glucose (POC) 247(H) 62 - 125 mg/dL 08/31/2022 11:48 AM PDT [facility] POCT Comment:Fingerstick Whole blood 08/30/2022 5:24 PM PDT 08/31/2022 11:48 AM PDT [place] DO LAB POINT OF CARE TE ST DOCKED DEVICE UNSOLICITED RESULTS [facility] [address] [place] [address] [facility] [address] [place] [address] * COVID-19 Coronavirus Qualitative PCR for Congregate Settings (08/30/2022 3:56 PM PDT) COVID-19 Coronavirus Qual PCR Specimen Type Nasal swab 08/30/2022 3:49 PM PDT [facility] COVID-19 Coronavirus Qual PCR Result None detected NDET 08/31/2022 2:29 AM PDT [facility] COVID-19 Coronavirus Qual PCR Interpretation This is a negative result. Laboratory testing alone cannot rule out infection, particularly in the presence of clinical risk factors such as symptoms or exposure history. 08/31/2022 2:29 AM PDT [facility] Comment: Performed using the Darci (R) SARS-CoV-2 real-time RT-PCR assay. ??Additional details available here: ??[email or web address] This test is not yet approved or cleared by the [place] FDA. When there are no FDA-approved or cleared tests available, and other criteria are met, FDA can make tests available under an emergency access mechanism called an Emergency Use Authorization (EUA). The EUA for this test is supported by the [place] of Health and Human Service's (HHS's) declaration that circumstances exist to justify the emergency use of in vitro diagnostics for the detection and/or diagnosis of the virus that causes COVID-19. This EUA will remain in effect (meaning this test can be used) for the duration of the COVID-19 declaration justifying emergency of IVDs, unless it is terminated or revoked by FDA (after which the test may no longer be used). Nasal swab 08/30/2022 3:56 PM PDT Alpa Zacarias MD LAB BODY FLUID S AND STOOLS ORDERABLES [facility] [address] [place] [address] [facility] [id number], [address] [place] [address] [facility] [address] [place] [address] * (ABNORMAL) POC Glucose, Whole Blood - C (08/30/2022 3:43 PM PDT) Glucose (POC) 191(H) 62 - 125 mg/dL 08/31/2022 6:33 AM PDT [facility] POCT Comment:Fingerstick Whole blood 08/30/2022 3:43 PM PDT 08/31/2022 6:33 AM PDT [place] DO LAB POINT OF CARE TE ST DOCKED DEVICE UNSOLICITED RESULTS Performing Organization Address City/[facility]/ZIP Co de Phone Number [facility] [address] [place] [address] [facility] [address] [place] [address] * (ABNORMAL) POC Glucose, Whole Blood - C (08/30/2022 1:51 PM PDT) Glucose (POC) 128(H) 62 - 125 mg/dL 08/30/2022 3:46 PM PDT [facility] POCT Comment:Fingerstick Whole blood 08/30/2022 1:51 PM PDT 08/30/2022 3:46 PM PDT [place] DO LAB POINT OF CARE TE ST DOCKED DEVICE UNSOLICITED RESULTS [facility] [address] [place] [address] [facility] [address] [place] [address] * POC Glucose, Whole Blood - C (08/30/2022 11:51 AM PDT) Glucose (POC) 114 62 - 125 mg/dL 08/30/2022 11:54 AM PDT [facility] POCT Comment:Fingerstick Whole blood 08/30/2022 11:5 1 AM PDT 08/30/2022 11:54 AM PDT [place] DO LAB POINT OF CARE TE ST DOCKED DEVICE UNSOLICITED RESULTS Performing Organization Address City/[facility]/ZIP Co de Phone Number [facility] [address] [place] [address] [facility] [address] [place] [address] * (ABNORMAL) POC Glucose, Whole Blood - [facility] (08/30/2022 10:21 AM PDT) Glucose (POC) 219(H) 62 - 125 mg/dL 08/30/2022 10:29 AM PDT [facility] POCT Comment:Fingerstick Whole blood 08/30/2022 10:2 1 AM PDT 08/30/2022 10:29 AM PDT [place] DO LAB POINT OF CARE TE ST DOCKED DEVICE UNSOLICITED RESULTS Performing Organization Address [facility] Co de Phone Number [facility] [phone] [place] [address] [facility] [address] [place] [address] * (ABNORMAL) POC Glucose, Whole Blood - [facility] (08/30/2022 8:57 AM PDT) Glucose (POC) 387(H) 62 - 125 mg/dL 08/30/2022 9:00 AM PDT [facility] POCT Comment:Fingerstick Whole blood 08/30/2022 8:57 AM PDT 08/30/2022 9:00 AM PDT [place] DO LAB POINT OF CARE TE ST DOCKED DEVICE UNSOLICITED RESULTS Performing Organization Address City/[facility]/ZIP Co de Phone Number [facility] [address] [place] [address] [facility] [address] [place] [address] * (ABNORMAL) Basic Metabolic Panel (08/30/2022 7:52 AM PDT) [facility] Sodium 131(L) 135 - 145 meq/L 08/30/2022 8:53 AM [facility] Med Potassium 5.3(H) 3.6 - 5.2 meq/L 08/30/2022 8:53 AM [facility] Med Chloride 100 98 - 108 meq/L 08/30/2022 8:53 AM [facility] Lab Med Carbon Dioxide, Total 23 22 - 32 meq/L 08/30/2022 8:53 AM [facility] Med Anion Gap 8 4 - 12 08/30/2022 8:53 AM [facility] Med Glucose 455(H) 62 - 125 mg/dL 08/30/2022 8:53 AM [facility] Med Urea Nitrogen 43(H) 8 - 21 mg/dL 08/30/2022 8:53 AM [facility] Med Creatinine 1.36(H) 0.51 - 1.18 mg/dL 08/30/2022 8:53 AM [facility] Med Calcium 9.2 8.9 - 10.2 mg/dL 08/30/2022 8:53 AM [facility] Lab Med eGFR by CKD-EPI 2020 53(L) >59 mL/min/1.7 3_m2 08/30/2022 8:53 AM [facility] Med Blood 08/30/2022 7:52 AM PDT [place] DO LAB BLOOD ORDERABLES [facility] MED [address], [address] [place] [id number] [facility] [address], [address] [place] [address] * (ABNORMAL) POC Glucose, Whole Blood - [facility] (08/30/2022 6:50 AM PDT) Glucose (POC) 501(HH) 62 - 125 mg/dL 08/30/2022 6:53 AM PDT [facility] POCT Comment:Fingerstick Whole blood 08/30/2022 6:50 AM PDT 08/30/2022 6:53 AM PDT [place] DO LAB POINT OF CARE TE ST DOCKED DEVICE UNSOLICITED RESULTS Performing Organization Address City/[facility]/ZIP Co de Phone Number [facility] [address] [place] [id number] [place] [address] [facility] [address] [place] [id number] [place] [address] * (ABNORMAL) POC Glucose, Whole Blood - [facility] (08/30/2022 6:18 AM PDT) Glucose (POC) 484(H) 62 - 125 mg/dL 08/30/2022 6:20 AM PDT [facility] POCT Comment:Fingerstick Whole blood 08/30/2022 6:18 AM PDT 08/30/2022 6:20 AM PDT [place] DO LAB POINT OF CARE TE ST DOCKED DEVICE UNSOLICITED RESULTS Performing Organization Address [facility] [place] Co de Phone Number [facility] [address] [place] [id number] [place] [address] [facility] [address] [id number] [place] [address] * (ABNORMAL) POC Glucose, Whole Blood - [facility] (08/29/2022 9:22 PM PDT) Glucose (POC) 133(H) 62 - 125 mg/dL 08/29/2022 9:24 PM PDT [facility] POCT Comment:Fingerstick Whole blood 08/29/2022 9:22 PM PDT 08/29/2022 9:24 PM PDT Souleymane Park DO LAB POINT OF CARE TE ST DOCKED DEVICE UNSOLICITED RESULTS Performing Organization Address City/[facility]/ZIP Co de Phone Number [facility] [id number] [place] [address] [facility] [id number] [place] [address] * POC Glucose, Whole Blood - [facility] (08/29/2022 8:19 PM PDT) Glucose (POC) 72 62 - 125 mg/dL 08/29/2022 9:24 PM PDT C POCT Comment:Fingerstick Whole blood 08/29/2022 8:19 PM PDT 08/29/2022 9:24 PM PDT Souleymane Park DO LAB POINT OF CARE TE ST DOCKED DEVICE UNSOLICITED RESULTS [facility] [address] [place] [address] [facility] [id number] [place] [address] * POC Glucose, Whole Blood - [facility] (08/29/2022 4:57 PM PDT) Glucose (POC) 93 62 - 125 mg/dL 08/29/2022 5:02 PM PDT C POCT Comment:Fingerstick Whole blood 08/29/2022 4:57 PM PDT 08/29/2022 5:02 PM PDT Souleymane Ligia Park DO LAB POINT OF CARE TE ST DOCKED DEVICE UNSOLICITED RESULTS [facility] [address] [place] [address] [facility] [address] [place] [address] * (ABNORMAL) POC Glucose, Whole Blood - [facility] (08/29/2022 12:05 PM PDT) Glucose (POC) 236(H) 62 - 125 mg/dL 08/29/2022 12:08 PM PDT [facility] POCT Whole blood 08/29/2022 12:0 5 PM PDT 08/29/2022 12:08 PM PDT Souleymane Park DO LAB POINT OF CARE TE ST DOCKED DEVICE UNSOLICITED RESULTS [facility] [address] [place] [address] [facility] [address] [place] [address] * 1st Extra Lavender Top (08/29/2022 8:11 AM PDT) [facility] 1st Extra Lavender Top Additional collection tube 08/29/2022 8:10 AM PDT [facility] Lab Med Plasma 08/29/2022 8:11 AM PDT 08/29/2022 8:19 AM PDT Souleymane Park DO LAB BLOOD ORDERABLES [facility] MED [id number], [id number] [place] [address] [facility] Med [address], [address] [place] [address] * (ABNORMAL) Basic Metabolic Panel (08/29/2022 8:11 AM PDT) [facility] Sodium 133(L) 135 - 145 meq/L 08/29/2022 8:42 AM [facility] Lab Med Potassium 4.8 3.6 - 5.2 meq/L 08/29/2022 8:42 AM PDT [facility] Lab Med Chloride 102 98 - 108 meq/L 08/29/2022 8:42 AM [facility] Lab Med Carbon Dioxide, Total 23 22 - 32 meq/L 08/29/2022 8:42 AM [facility] Lab Med Anion Gap 8 4 - 12 08/29/2022 8:42 AM [facility] Lab Med Glucose 343(H) 62 - 125 mg/dL 08/29/2022 8:42 AM PDT [facility] Lab Med Urea Nitrogen 39(H) 8 - 21 mg/dL 08/29/2022 8:42 AM [facility] Lab Med Creatinine 1.34(H) 0.51 - 1.18 mg/dL 08/29/2022 8:42 AM PDT [facility] Lab Med Calcium 9.5 8.9 - 10.2 mg/dL 08/29/2022 8:42 AM PDT [facility] Lab Med eGFR by CKD-EPI 2020 54(L) >59 mL/min/1.7 3_m2 08/29/2022 8:42 AM PDT [facility] Med Blood 08/29/2022 8:11 AM PDT Souleymane Park DO LAB BLOOD ORDERABLES [facility] MED [address], [address] [place] [id number] [facility] Med [address], [address] [place] [address] * (ABNORMAL) POC Glucose, Whole Blood - [facility] (08/29/2022 7:43 AM PDT) Glucose (POC) 316(H) 62 - 125 mg/dL 08/29/2022 7:45 AM PDT [facility] POCT Comment:Fingerstick Whole blood 08/29/2022 7:43 AM PDT 08/29/2022 7:45 AM PDT Souleymane Park DO LAB POINT OF CARE TE ST DOCKED DEVICE UNSOLICITED RESULTS [facility] [address] [place] [address] [facility] [phone] [place] [address] * (ABNORMAL) POC Glucose, Whole Blood - [facility] (08/28/2022 10:15 PM PDT) Glucose (POC) 146(H) 62 - 125 mg/dL 08/29/2022 11:50 AM PDT [facility] POCT Whole blood 08/28/2022 10:1 5 PM PDT 08/29/2022 11:50 AM PDT Souleymane Park DO LAB POINT OF CARE TE ST DOCKED DEVICE UNSOLICITED RESULTS [facility] [address] [place] [address] [facility] [address] [place] [address] * POC Glucose, Whole Blood - [facility] (08/28/2022 9:22 PM PDT) Glucose (POC) 92 62 - 125 mg/dL 08/29/2022 11:50 AM PDT C POCT Comment:Fingerstick Post artemio d intake Whole blood 08/28/2022 9:22 PM PDT 08/29/2022 11:50 AM PDT Souleymane Park DO LAB POINT OF CARE TE ST DOCKED DEVICE UNSOLICITED RESULTS Performing Organization Address City/[facility]/ZIP Co de Phone Number [facility] [address] [place] [address] [facility] [address] [place] [address] * POC Glucose, Whole Blood - C (08/28/2022 9:01 PM PDT) Glucose (POC) 84 62 - 125 mg/dL 08/29/2022 11:50 AM PDT [facility] POCT Whole blood 08/28/2022 9:01 PM PDT 08/29/2022 11:50 AM PDT Souleymane Park DO LAB POINT OF CARE TE ST DOCKED DEVICE UNSOLICITED RESULTS [facility] [address] [place] [address] [facility] [address] [place] [address] * POC Glucose, Whole Blood - C (08/28/2022 8:30 PM PDT) Glucose (POC) 65 62 - 125 mg/dL 08/29/2022 11:50 AM PDT [facility] POCT Comment:Fingerstick Whole blood 08/28/2022 8:30 PM PDT 08/29/2022 11:50 AM PDT Souleymane Park DO LAB POINT OF CARE TE ST DOCKED DEVICE UNSOLICITED RESULTS [facility] [address] [place] [address] [facility] [address] [place] [address] * POC Glucose, Whole Blood - [facility] (08/28/2022 5:16 PM PDT) Glucose (POC) 103 62 - 125 mg/dL 08/28/2022 5:20 PM PDT [facility] POCT Comment:Fingerstick Whole blood 08/28/2022 5:16 PM PDT 08/28/2022 5:20 PM PDT Souleymane Park LAB POINT OF CARE TE ST DOCKED DEVICE UNSOLICITED RESULTS [facility] [phone] [place] [address] [facility] [address] [place] [address] * COVID-19 Coronavirus Qualitative PCR for Congregate Settings (08/28/2022 1:56 PM PDT) COVID-19 Coronavirus Qual PCR Specimen Type Nasal swab 08/28/2022 12:41 PM PDT [facility] Med COVID-19 Coronavirus Qual PCR Result None detected NDET 08/28/2022 10:16 PM PDT [facility] COVID-19 Coronavirus Qual PCR Interpretation This is a negative result. Laboratory testing alone cannot rule out infection, particularly in the presence of clinical risk factors such as symptoms or exposure history. 08/28/2022 10:16 PM PDT [facility] COVID Testing Lab Comment: Performed using the Darci (R) SARS-CoV-2 real-time RT-PCR assay. ??Additional details available here: ??[email or web address] This test is not yet approved or cleared by the [place] FDA. When there are no FDA-approved or cleared tests available, and other criteria are met, FDA can make tests available under an emergency access mechanism called an Emergency Use Authorization (EUA). The EUA for this test is supported by the [place] of Health and Human Service's (HHS's) declaration that circumstances exist to justify the emergency use of in vitro diagnostics for the detection and/or diagnosis of the virus that causes COVID-19. This EUA will remain in effect (meaning this test can be used) for the duration of the COVID-19 declaration justifying emergency of IVDs, unless it is terminated or revoked by FDA (after which the test may no longer be used). Nasal swab 08/28/2022 1:56 PM PDT Alpa Zacarias MD LAB BODY FLUID S AND STOOLS ORDERABLES [facility] COVID TESTING LAB [address] [place] [address] [facility] Med [address], [address] [place] [address] [facility] COVID Testing Lab [address] [place] [address] * MICRO/SEROLOGY SENDOUT (08/28/2022 12:20 PM PDT) Micro Sendout Specimen Type Swab 08/28/2022 1:17 PM PDT [facility] Lab Med Comment:Axilla Groin Micro Sendout: Test Requested R/O C AURIS 08/28/2022 1:17 PM PDT [facility] Med Micro Sendout: Result Vernon auris real time PCR: Not Detected 09/05/2022 7:55 AM PDT Outside Reference Performing Lab Micro Sendout: Comment (NOTE) 09/05/2022 7:55 AM PDT Outside Reference Performing Lab Comment: Wall: Detected is abnormal. Not Detected is normal. C. auris PCR Disclaimer: This PCR assay's performance characteristics were determined by the [facility]. A negative test result does not necessarily exclude the presence of C. auris. Results are for infection control and epidemiological purposes and should not be used as the sole means for clinical diagnosis or patient management. Micro Sendout: Reference Lab Test(s) performed by [facility], [address] [address] 08/28/2022 1:17 PM PDT [facility] Lab Med Specimen 08/28/2022 12:2 0 PM PDT 08/28/2022 1:16 PM PDT Souleymane Park DO MICROBIOLOGY Performing Organization Address [facility]/ZIP Co de Phone Number [facility] MED [address], [address] [place] [phone] [facility] Med [address], [address] [place] [address] Outside Reference Performing Lab (See Results) * (ABNORMAL) POC Glucose, Whole Blood - [facility] (08/28/2022 12:15 PM PDT) [facility] Glucose (POC) 325(H) 62 - 125 mg/dL 08/28/2022 12:17 PM PDT [facility] POCT Whole blood 08/28/2022 12:1 5 PM PDT 08/28/2022 12:17 PM PDT Souleymane Park DO LAB POINT OF CARE TE ST DOCKED DEVICE UNSOLICITED RESULTS Performing Organization Address [facility]/ZIP Co de Phone Number [facility] [address] [place] [address] [facility] [address] [address] [place] [address] * Lab Add On Order, Microbiology (08/28/2022 11:48 AM PDT) [facility] Lab Test Requested C. auris colonization screening bilateral axilla/groin 08/28/2022 11:47 AM PDT [facility] Lab Med Specimen Type/Descript ion Swab 08/28/2022 11:47 AM PDT [facility] Lab Med Comment:Axilla Sample To Use Most recent 08/28/2022 11:47 AM PDT [facility] Med Test Request Status Order Processed 08/28/2022 12:52 PM PDT [facility] Med Swab (Axilla) 08/28/2022 11: 48 AM PDT Souleymane Park DO LAB BLOOD ORDERABLES [facility] MED [address], [address] [place] [address] [facility] Med [address], [address] [place] [address] * (ABNORMAL) POC Glucose, Whole Blood - [facility] (08/28/2022 9:46 AM PDT) Glucose (POC) 429(H) 62 - 125 mg/dL 08/28/2022 9:52 AM PDT [facility] POCT Comment:Fingerstick Whole blood 08/28/2022 9:46 AM PDT 08/28/2022 9:52 AM PDT Souleymane Park DO LAB POINT OF CARE TE ST DOCKED DEVICE UNSOLICITED RESULTS Performing Organization Address City/[facility]/ZIP Co de Phone Number [facility] [address] [place] [address] [facility] [address] [place] [address] * (ABNORMAL) POC Glucose, Whole Blood - C (08/28/2022 9:29 AM PDT) Glucose (POC) 382(H) 62 - 125 mg/dL 08/28/2022 9:31 AM PDT [facility] POCT Comment:Fingerstick Whole blood 08/28/2022 9:29 AM PDT 08/28/2022 9:31 AM PDT Souleymane Park DO LAB POINT OF CARE TE ST DOCKED DEVICE UNSOLICITED RESULTS [facility] [phone] [place] [address] [facility] [address] [place] [address] * (ABNORMAL) POC Glucose, Whole Blood - C (08/28/2022 6:47 AM PDT) Glucose (POC) 309(H) 62 - 125 mg/dL 08/28/2022 6:50 AM PDT C POCT Comment:Fingerstick Whole blood 08/28/2022 6:47 AM PDT 08/28/2022 6:50 AM PDT Souleymane Park DO LAB POINT OF CARE TE ST DOCKED DEVICE UNSOLICITED RESULTS [facility] [address] [place] [address] [facility] [address] [place] [address] * (ABNORMAL) POC Glucose, Whole Blood - [facility] (08/28/2022 6:35 AM PDT) Glucose (POC) 321(H) 62 - 125 mg/dL 08/28/2022 6:52 AM PDT [facility] POCT Comment:Fingerstick Whole blood 08/28/2022 6:35 AM PDT 08/28/2022 6:52 AM PDT Souleymane Park DO LAB POINT OF CARE TE ST DOCKED DEVICE UNSOLICITED RESULTS C [address]CT [address] [place] [address] [facility] [address] [place] [address] * (ABNORMAL) POC Glucose, Whole Blood - C (08/28/2022 6:32 AM PDT) Glucose (POC) 364(H) 62 - 125 mg/dL 08/28/2022 6:52 AM PDT C POCT Comment:Fingerstick Whole blood 08/28/2022 6:32 AM PDT 08/28/2022 6:52 AM PDT Souleymane Park LAB POINT OF CARE TE ST DOCKED DEVICE UNSOLICITED RESULTS [facility] [address] [place] [address] [facility] [address] [place] [address] * POC Glucose, Whole Blood - [facility] (08/27/2022 9:13 PM PDT) [facility] Glucose (POC) 119 62 - 125 mg/dL 08/27/2022 9:19 PM PDT [facility] POCT Whole blood 08/27/2022 9:13 PM PDT 08/27/2022 9:19 PM PDT Souleymane L Xavier CHANCE LAB POINT OF CARE TE ST DOCKED DEVICE UNSOLICITED RESULTS Performing Organization Address City/[facility]/ZIP Co de Phone Number [facility] [address] [place] [address] [facility] [address] [place] [address] documented in this encounter Visit Diagnoses Diagnosis Cerebrovascular accident (CVA) of left basal ganglia (HCC)- Primary Cerebrovascular accident (CVA) of left basal ganglia (HCC) Acute cerebral infarction (HCC) Unspecified cerebral artery occlusion with cerebral infarction Pericardial effusion Unspecified disease of pericardium Type 1 diabetes mellitus without complication (HCC) Type I (juvenile type) diabetes mellitus without mention of complication, not stated as uncontrolled documented in this encounter Administered Medications Inactive Administered Medications - up to 3 most recent administrations Medication Order MAR Action Action Date Dose Rate Site acetaminophen (Tylenol) tablet 650 mg 650 mg, Oral, Every 4 hours PRN, mild pain, moderate pain, fever, headaches, other (see Admin. Inst.), Starting on Thu08/27/22 at 2031, For mild pain if used alone or moderate to severe pain if used as part of a multimodal regimen, or headache, or fever GREATER THAN 100.4. Acetaminophen liquid shortage - for feeding tube administration, crush tablet and mix with water prior to administration aspirin tablet 325 mg 325 mg, Oral, Daily, First dose (after last modification) on Rosa Maria 7/6/23 at 0900, Give with food. Given 09/12/2022 8:12 AM PDT 325 mg Given 09/11/2022 8:00 AM PDT 325 mg Given 09/10/2022 8:19 AM PDT 325 mg dextrose 50 % injection 25 mL 25 mL, Intravenous, As needed, low blood sugar, Starting on Thu08/27/22 at 2031, For BG 55-70 mg/dL, per Hypoglycemia Protocol (see evidence link for details) Given 09/01/2022 8:37 PM PDT 25 mL dextrose 50 % injection 50 mL 50 mL, Intravenous, As needed, low blood sugar, Starting on Thu08/27/22 at 2031, For BG < 55 mg/dL, per Hypoglycemia Protocol (see evidence link for details) glucagon injection 0.5 mg 0.5 mg, Subcutaneous, As needed, low blood sugar, Starting on Thu08/27/22 at 2031, For BG 55-70 mg/dL, per Hypoglycemia Protocol (see evidence link for details) Reconstitute with 1mL of Sterile Water for Injection. glucagon injection 1 mg 1 mg, Subcutaneous, As needed, low blood sugar, Starting on Thu08/27/22 at 2031, For BG < 55 mg/dL, per Hypoglycemia Protocol (see evidence link for details) Reconstitute with 1mL of Sterile Water for Injection. heparin injection 5,000 units 5,000 units, Subcutaneous, Every 12 hours scheduled, First dose (after last modification) on Thu08/27/22 at 2102, For usual risk VTE prophylaxis. Inject subcutaneously ONLY in abdomen. Given 09/12/2022 8:12 AM PDT 5,000 units Abdominal Tissue Given 09/11/2022 8:44 PM PDT 5,000 units L eft Lower Abdomen Given 09/11/2022 8:00 AM PDT 5,000 units L eft Lower Abdomen hydroxychloroquine (Plaquenil) tablet 200 mg 200 mg, Oral, 2 times daily, First dose (after last modification) on Thu08/27/22 at 2103, Give with food. Given 09/12/2022 8:12 AM PDT 200 mg Given 09/11/2022 8:45 PM PDT 200 mg Given 09/11/2022 8:00 AM PDT 200 mg insulin GLARGINE injection 16 units 16 units, Subcutaneous, Every morning, First dose (after last modification) on Thu09/03/22 at 0900, Scheduled BASAL - Oral diet 1. If NPO for scheduled test/surgery, give either night before or am of test/surgery: a. Type 2 DM or Stress Hyperglycemia: 50% of basal insulin b. Type 1 DM: 75% of basal insulin 2. Do NOT hold basal dose. Do NOT mix with any other insulin. Given 09/09/2022 8:32 AM PDT 16 units Left Arm Given 09/08/2022 8:41 AM PDT 16 units Ri ght Arm Given 09/07/2022 8:34 AM PDT 16 units Ab dominal Tissue insulin GLARGINE injection 16 units 16 units, Subcutaneous, Every evening, First dose (after last modification) on Thu09/10/22 at 1700, Scheduled BASAL - Oral diet 1. If NPO for scheduled test/surgery, give either night before or am of test/surgery: a. Type 2 DM or Stress Hyperglycemia: 50% of basal insulin b. Type 1 DM: 75% of basal insulin 2. Do NOT hold basal dose. Do NOT mix with any other insulin. Given 09/11/2022 6:15 PM PDT 16 units Left Lower Abdomen Given 09/10/2022 5:44 PM PDT 16 units Ri ght Lower Abdomen insulin GLARGINE injection 18 units 18 units, Subcutaneous, Every morning, First dose on Thu08/28/22 at 0900, Scheduled BASAL - Oral diet 1. If NPO for scheduled test/surgery, give either night before or am of test/surgery: a. Type 2 DM or Stress Hyperglycemia: 50% of basal insulin b. Type 1 DM: 75% of basal insulin 2. Do NOT hold basal dose. Do NOT mix with any other insulin. Given 09/02/2022 8:15 AM PDT 18 units Left Arm Given 09/01/2022 9:57 AM PDT 18 units Le ft Arm Given 08/31/2022 8:45 AM PDT 18 units Ab dominal Tissue insulin LISPRO injection 0-4 units 0-4 units, Subcutaneous, Nightly, First dose on Thu08/27/22 at 2103, BEDTIME LOW Correction Insulin Blood sugar = Dose < 200 = DO NOT GIVE CORRECTIONAL INSULIN 200-249 = 2 units 250-299 = 3 units 300-349 = 3 units >349 = recheck blood sugar once now, then give 4 units. For BG > 349, call PROVIDER and recheck BG in 1-2 hours. For BG > 500, send venous blood glucose STAT. 1. Check BG. Even if patient is NPO or not eating, GIVE correction insulin IF indicated by correction scale. 2. If BG is LESS than or equal to 90mg/dL, offer patient juice or a small snack if appropriate. If BG is LESS than or equal to 70 mg/dL, follow Hypoglycemia Protocol. Given 09/11/2022 8:52 PM PDT 3 units Right Arm Given 09/10/2022 9:10 PM PDT 2 units Ri ght Lower Abdomen Given 09/08/2022 9:07 PM PDT 3 units Ab dominal Tissue insulin LISPRO injection 0-5 units 0-5 units, Subcutaneous, 3 times daily before meals, First dose on Rosa Maria 08/28/22 at 0800, DAYTIME LOW Dose CORRECTION Insulin Blood sugar = Dose < 151 = DO NOT GIVE CORRECTIONAL INSULIN 151-199 = 1 unit (2 units if no nutritional insulin given) 200-249 = 2 units 250-299 = 3 units 300-349 = 4 units >349 = recheck blood sugar once now, then give 5 units. For BG > 349, call PROVIDER and recheck BG in 1-2 hours For BG > 500, send venous blood glucose STAT. 1. Check BG before scheduled mealtime. Even if patient is NPO or not eating, GIVE correction insulin IF indicated by correction scale. 2. If POC BG was obtained POST FOOD INTAKE, hold correction insulin dose. If POST FOOD INTAKE BG is GREATER than or equal to 300 mg/dL, call provider for instructions. 3. If BG is LESS than or equal to 70 mg/dL, follow Hypoglycemia Protocol. Given 09/11/2022 6:14 PM PDT 3 units Left Lower Abdomen Given 09/11/2022 12:54 PM PDT 1 units L eft Lower Abdomen Given 09/11/2022 7:42 AM PDT 3 units Le ft Lower Abdomen insulin LISPRO injection 0-8 units 0-8 units, Subcutaneous, Every 24 hours, First dose on [place] 08/31/22 at 0200, DAYTIME MED Dose CORRECTION Insulin Blood sugar = Dose < 151 = DO NOT GIVE CORRECTIONAL INSULIN 151-199 = 2 units 200-249 = 3 units 250-299 = 5 units 300-349 = 7 units >349 = recheck blood sugar once now, then give 8 units. For BG > 349, call Provider and recheck BG in 1-2 hours. For BG > 500, send venous blood glucose STAT. , 1. Check BG before scheduled mealtime. Even if patient is NPO or not eating, GIVE correction insulin IF indicated by correction scale. 2. If POC BG was obtained POST FOOD INTAKE, hold correction insulin dose. If POST FOOD INTAKE BG is GREATER than or equal to 300 mg/dL, call provider for instructions. 3. If BG is LESS than or equal to 70 mg/dL, follow Hypoglycemia Protocol. Given 09/10/2022 2:09 AM PDT 3 units Left Arm Given 09/06/2022 2:10 AM PDT 3 units Le ft Upper Abdomen insulin LISPRO injection 0-8 units 0-8 units, Subcutaneous, 3 times daily before meals, First dose on Thu09/12/22 at 0800, DAYTIME MED Dose CORRECTION Insulin Blood sugar = Dose < 151 = DO NOT GIVE CORRECTIONAL INSULIN 151-199 = 2 units 200-249 = 3 units 250-299 = 5 units 300-349 = 7 units >349 = recheck blood sugar once now, then give 8 units. For BG > 349, call Provider and recheck BG in 1-2 hours. For BG > 500, send venous blood glucose STAT. , 1. Check BG before scheduled mealtime. Even if patient is NPO or not eating, GIVE correction insulin IF indicated by correction scale. 2. If POC BG was obtained POST FOOD INTAKE, hold correction insulin dose. If POST FOOD INTAKE BG is GREATER than or equal to 300 mg/dL, call provider for instructions. 3. If BG is LESS than or equal to 70 mg/dL, follow Hypoglycemia Protocol. Given 09/12/2022 7:51 AM PDT 2 units Abdominal Tissue insulin LISPRO injection 10 units 10 units, Subcutaneous, Once, On Rosa Maria 08/28/22 at 1148, For 1 dose, Administer up to 15 minutes before eating. Given 08/28/2022 12:27 PM PDT 10 units Left Lower Abdomen insulin LISPRO injection 15 units 15 units, Subcutaneous, Once, On 08/30/22 at 0806, For 1 dose, Administer up to 15 minutes before eating. Given 08/30/2022 7:57 AM PDT 15 units Left Arm insulin LISPRO injection Subcutaneous, 3 times daily before meals, First dose on Rosa Maria 08/28/22 at 0800, CARB RATIO Scheduled NUTRITIONAL - Oral diet (Give 10 to 20 minutes pre-meal or immediately after meals) 1. Check BG. If NPO or not eating for any reason, do NOT give nutritional insulin. RN may re-time nutritional insulin to when patient is eating. 2. If indicated, GIVE CORRECTION insulin dose per correction scale (see correction insulin order). 3. If BG is LESS than or equal to 70mg/dL, follow Hypoglycemia protocol. 4. If BG is 71-89 mg/dL, give 50% of scheduled nutritional insulin with meal. 5. If nutritional insulin has been given AND patient eats 25% of meal or less, recheck BG in 1-2 hours. If appropriate, offer carbohydrate snack or nutritional supplement., Ratio Type: Fixed Ratio, 1 unit of insulin covers this many grams of carbohydrate: 10 Given 09/12/2022 7:49 AM PDT 7 units Abdominal Tissue Given 09/11/2022 6:14 PM PDT 8 units Le ft Lower Abdomen Given 09/11/2022 12:54 PM PDT 6 units L eft Lower Abdomen insulin NPH (HumuLIN N) injection 7 units 7 units, Subcutaneous, Every morning, First dose on Thu09/10/22 at 0900, For 1 dose, Scheduled BASAL - Oral diet 1. If NPO for scheduled test/surgery, give either night before or am of test/surgery: a. Type 2 DM or Stress Hyperglycemia: 50% of basal insulin b. Type 1 DM: 75% of basal insulin 2. Do NOT hold basal dose. Given 09/10/2022 8:18 AM PDT 7 units Left Lower Abdomen melatonin tablet 3 mg 3 mg, Oral, Nightly PRN, sleep, Starting on Thu08/27/22 at 2031 Given 09/09/2022 9:23 PM PDT 3 mg Given 09/08/2022 8:38 PM PDT 3 mg Given 09/07/2022 8:10 PM PDT 3 mg ondansetron (Zofran) tablet 4 mg 4 mg, Oral, Every 8 hours PRN, nausea/vomiting, Starting on Thu08/27/22 at 2031, See link for Algorithm for PRN Antiemetic Medications for Inpatients with Nausea/Vomiting rosuvastatin (Crestor) tablet 5 mg 5 mg, Oral, Daily, First dose (after last modification) on Thu08/28/22 at 0900 Given 09/12/2022 8:12 AM PDT 5 mg Given 09/11/2022 8:00 AM PDT 5 mg Given 09/10/2022 8:20 AM PDT 5 mg senna (Senokot) syrup 17.6 mg 17.6 mg, Oral, 2 times daily, First dose (after last modification) on Thu08/27/22 at 2103, Hold for loose stools. Given 09/05/2022 9:10 AM PDT 17.6 mg Given 09/04/2022 8:04 PM PDT 17.6 mg Given 09/04/2022 9:28 AM PDT 17.6 mg senna (Senokot) tablet 17.2 mg 17.2 mg, Oral, 2 times daily, First dose on Thu09/05/22 at 0944 Given 09/12/2022 8:12 AM PDT 17.2 mg Given 09/11/2022 8:45 PM PDT 17.2 mg Given 09/11/2022 8:00 AM PDT 17.2 mg sulfaSALAzine tablet 1,000 mg 1,000 mg, Oral, 2 times daily, First dose (after last modification) on Thu08/27/22 at 2103 Given 09/12/2022 8:12 AM PDT 1,000 mg Given 09/11/2022 8:44 PM PDT 1,000 mg Given 09/11/2022 8:00 AM PDT 1,000 mg zinc oxide (Desitin) 40 % topical paste Topical, 2 times daily PRN, rash, Starting on Thu08/29/22 at 0739, Apply to groin R side . documented in this encounter Active and Recently Administered Medications Times are shown in PDT. Scheduled Medication Order 09/10/2022 09/11/2022 09/12/2022 aspirin tablet 325 mg 325 mg, Oral, Daily, First dose (after last modification) on Thu08/28/22 at 0900, Give with food. 0819 (Given - Provider: Rosanna Ruiz RN) 0800 (Given - Provider: Lina Montalvo RN) 0812 (Given - Provider: Leighton Nelson RN) heparin injection 5,000 units 5,000 units, Subcutaneous, Every 12 hours scheduled, First dose (after last modification) on Thu08/27/22 at 2103, For usual risk VTE prophylaxis. Inject subcutaneously ONLY in abdomen. 818 (Given - Provider: Rosanna Ruiz RN)2110 (Given - Provider: Sergio Moffett, MARTINEZ) 08 (Given - Provider: Lina Montalvo RN)2043 (Given - Provider: Audelia Kaur, MARTINEZ) 0812 (Given - Provider: Leighton Nelson RN) hydroxychloroquine (Plaquenil) tablet 200 mg 200 mg, Oral, 2 times daily, First dose (after last modification) on Thu08/27/22 at 2103, Give with food. 819 (Given - Provider: Rosanna Ruiz RN)2110 (Given - Provider: Sergio Moffett RN) 799 (Given - Provider: Lina Montalvo RN)2044 (Given - Provider: Audelia Kaur, MARTINEZ) 08 (Given - Provider: Leighton Nelson RN) insulin GLARGINE injection 16 units 16 units, Subcutaneous, Every evening, First dose (after last modification) on Thu09/10/22 at 1700, Scheduled BASAL - Oral diet 1. If NPO for scheduled test/surgery, give either night before or am of test/surgery: a. Type 2 DM or Stress Hyperglycemia: 50% of basal insulin b. Type 1 DM: 75% of basal insulin 2. Do NOT hold basal dose. Do NOT mix with any other insulin. 1743 (Given - Provider: Rosanna Ruiz RN) 1814 (Given - Provider: Lina Montalvo RN) insulin LISPRO injection 0-4 units 0-4 units, Subcutaneous, Nightly, First dose on Thu08/27/22 at 2103, BEDTIME LOW Correction Insulin Blood sugar = Dose < 200 = DO NOT GIVE CORRECTIONAL INSULIN 200-249 = 2 units 250-299 = 3 units 300-349 = 3 units >349 = recheck blood sugar once now, then give 4 units. For BG > 349, call PROVIDER and recheck BG in 1-2 hours. For BG > 500, send venous blood glucose STAT. 1. Check BG. Even if patient is NPO or not eating, GIVE correction insulin IF indicated by correction scale. 2. If BG is LESS than or equal to 90mg/dL, offer patient juice or a small snack if appropriate. If BG is LESS than or equal to 70 mg/dL, follow Hypoglycemia Protocol. 2109 (Given - Provider: Sergio Moffett RN) 2051 (Given - Provider: Audelia Kaur RN) insulin LISPRO injection 0-5 units (CANCELED) 0-5 units, Subcutaneous, 3 times daily before meals, First dose on [place] 08/28/22 at 0800, DAYTIME LOW Dose CORRECTION Insulin Blood sugar = Dose < 151 = DO NOT GIVE CORRECTIONAL INSULIN 151-199 = 1 unit (2 units if no nutritional insulin given) 200-249 = 2 units 250-299 = 3 units 300-349 = 4 units >349 = recheck blood sugar once now, then give 5 units. For BG > 349, call PROVIDER and recheck BG in 1-2 hours For BG > 500, send venous blood glucose STAT. 1. Check BG before scheduled mealtime. Even if patient is NPO or not eating, GIVE correction insulin IF indicated by correction scale. 2. If POC BG was obtained POST FOOD INTAKE, hold correction insulin dose. If POST FOOD INTAKE BG is GREATER than or equal to 300 mg/dL, call provider for instructions. 3. If BG is LESS than or equal to 70 mg/dL, follow Hypoglycemia Protocol. 0727 (Not Given - Provider: Rosanna Ruiz RN - Reason: Order parameters not met - Comment: blood sugar [phone] (Given - Provider: Rosanna Ruiz RN - Comment: blood sugar [phone] (Given - Provider: Rosanna Ruiz RN) 0742 (Given - Provider: Lina Montalvo RN - Comment: bg [phone] (Given - Provider: Lina Montalvo RN - Comment: bg 169)1814 (Given - Provider: Lina Montalvo RN - Comment: bg 287, pt receiving order before dinner) insulin LISPRO injection 0-8 units 0-8 units, Subcutaneous, Every 24 hours, First dose on [place] 08/31/22 at 0200, DAYTIME MED Dose CORRECTION Insulin Blood sugar = Dose < 151 = DO NOT GIVE CORRECTIONAL INSULIN 151-199 = 2 units 200-249 = 3 units 250-299 = 5 units 300-349 = 7 units >349 = recheck blood sugar once now, then give 8 units. For BG > 349, call Provider and recheck BG in 1-2 hours. For BG > 500, send venous blood glucose STAT. , 1. Check BG before scheduled mealtime. Even if patient is NPO or not eating, GIVE correction insulin IF indicated by correction scale. 2. If POC BG was obtained POST FOOD INTAKE, hold correction insulin dose. If POST FOOD INTAKE BG is GREATER than or equal to 300 mg/dL, call provider for instructions. 3. If BG is LESS than or equal to 70 mg/dL, follow Hypoglycemia Protocol. 0209 (Given - Provider: Gerson Glover RN) 0200 (Not Given - Provider: Sergio Moffett RN - Reason: See Comments - Comment: CS 79) 0303 (Not Given - Provider: Audelia Kaur RN - Reason: Order parameters not met - Comment: BG 126) insulin LISPRO injection 0-8 units 0-8 units, Subcutaneous, 3 times daily before meals, First dose on Thu09/12/22 at 0800, DAYTIME MED Dose CORRECTION Insulin Blood sugar = Dose < 151 = DO NOT GIVE CORRECTIONAL INSULIN 151-199 = 2 units 200-249 = 3 units 250-299 = 5 units 300-349 = 7 units >349 = recheck blood sugar once now, then give 8 units. For BG > 349, call Provider and recheck BG in 1-2 hours. For BG > 500, send venous blood glucose STAT. , 1. Check BG before scheduled mealtime. Even if patient is NPO or not eating, GIVE correction insulin IF indicated by correction scale. 2. If POC BG was obtained POST FOOD INTAKE, hold correction insulin dose. If POST FOOD INTAKE BG is GREATER than or equal to 300 mg/dL, call provider for instructions. 3. If BG is LESS than or equal to 70 mg/dL, follow Hypoglycemia Protocol. 0751 (Given - Provider: Leighton Nelson RN - Comment: bs 190)1100 (Unchart - Provider: Automatic Discharge Provider - Comment: Automatically canceled at discontinue of medication order)1600 (Unchart - Provider: Automatic Discharge Provider - Comment: Automatically canceled at discontinue of medication order) insulin LISPRO injection Subcutaneous, 3 times daily before meals, First dose on Thu08/28/22 at 0800, CARB RATIO Scheduled NUTRITIONAL - Oral diet (Give 10 to 20 minutes pre-meal or immediately after meals) 1. Check BG. If NPO or not eating for any reason, do NOT give nutritional insulin. RN may re-time nutritional insulin to when patient is eating. 2. If indicated, GIVE CORRECTION insulin dose per correction scale (see correction insulin order). 3. If BG is LESS than or equal to 70mg/dL, follow Hypoglycemia protocol. 4. If BG is 71-89 mg/dL, give 50% of scheduled nutritional insulin with meal. 5. If nutritional insulin has been given AND patient eats 25% of meal or less, recheck BG in 1-2 hours. If appropriate, offer carbohydrate snack or nutritional supplement., Ratio Type: Fixed Ratio, 1 unit of insulin covers this many grams of carbohydrate: 10 0818 (Given - Provider: Rosanna Ruiz RN)1241 (Given - Provider: Rosanna Ruiz RN - Comment: blood sugar 290, total carb 49g)1744 (Given - Provider: Rosanna Ruiz RN) 0742 (Given - Provider: Lina Montalvo RN)1254 (Given - Provider: Lina Montalvo RN - Comment: lunch time)1814 (Given - Provider: Lina Montalvo RN - Comment: dinner time) 0749 (Given - Provider: Leighton Nelson RN)1100 (Unchart - Provider: Automatic Discharge Provider - Comment: Automatically canceled at discontinue of medication order)1600 (Unchart - Provider: Automatic Discharge Provider - Comment: Automatically canceled at discontinue of medication order) insulin NPH (HumuLIN N) injection 7 units (COMPLETED) 7 units, Subcutaneous, Every morning, First dose on Thu09/10/22 at 0900, For 1 dose, Scheduled BASAL - Oral diet 1. If NPO for scheduled test/surgery, give either night before or am of test/surgery: a. Type 2 DM or Stress Hyperglycemia: 50% of basal insulin b. Type 1 DM: 75% of basal insulin 2. Do NOT hold basal dose. 0818 (Given - Provider: Rosanna Ruiz RN) rosuvastatin (Crestor) tablet 5 mg 5 mg, Oral, Daily, First dose (after last modification) on Thu08/28/22 at 0900 0820 (Given - Provider: Rosanna Ruiz RN) 08 (Given - Provider: Lina Montalvo RN) 08 (Given - Provider: Leighton Nelson, MARTINEZ) senna (Senokot) tablet 17.2 mg 17.2 mg, Oral, 2 times daily, First dose on Thu09/05/22 at 0944 0820 (Given - Provider: Rosanna Ruiz RN)2109 (Given - Provider: Sergio Moffett RN) 08 (Given - Provider: Lina Montalvo RN)2044 (Given - Provider: Audelia Kaur RN) 08 (Given - Provider: Leighton Nelson, MARTINEZ) sulfaSALAzine tablet 1,000 mg 1,000 mg, Oral, 2 times daily, First dose (after last modification) on Thu08/27/22 at 2103 0819 (Given - Provider: Rosanna Ruiz RN)2109 (Given - Provider: Sergio Moffett RN) 799 (Given - Provider: Lina Montalvo RN)2043 (Given - Provider: Audelia Kaur RN) 08 (Given - Provider: Leighton Nelson, MARTINEZ) PRN Medication Order 09/10/2022 09/11/2022 09/12/2022 acetaminophen (Tylenol) tablet 650 mg 650 mg, Oral, Every 4 hours PRN, mild pain, moderate pain, fever, headaches, other (see Admin. Inst.), Starting on Thu08/27/22 at 2031, For mild pain if used alone or moderate to severe pain if used as part of a multimodal regimen, or headache, or fever GREATER THAN 100.4. Acetaminophen liquid shortage - for feeding tube administration, crush tablet and mix with water prior to administration dextrose 50 % injection 25 mL 25 mL, Intravenous, As needed, low blood sugar, Starting on Thu08/27/22 at 2031, For BG 55-70 mg/dL, per Hypoglycemia Protocol (see evidence link for details) dextrose 50 % injection 50 mL 50 mL, Intravenous, As needed, low blood sugar, Starting on Thu08/27/22 at 2031, For BG < 55 mg/dL, per Hypoglycemia Protocol (see evidence link for details) glucagon injection 0.5 mg 0.5 mg, Subcutaneous, As needed, low blood sugar, Starting on Thu08/27/22 at 2031, For BG 55-70 mg/dL, per Hypoglycemia Protocol (see evidence link for details) Reconstitute with 1mL of Sterile Water for Injection. glucagon injection 0.5 mg 0.5 mg, Subcutaneous, As needed, low blood sugar, Starting on Thu09/12/22 at 1228, For BG 55-70 mg/dL, per Hypoglycemia Protocol (see evidence link for details) Reconstitute with 1mL of Sterile Water for Injection. glucagon injection 1 mg 1 mg, Subcutaneous, As needed, low blood sugar, Starting on Thu08/27/22 at 2031, For BG < 55 mg/dL, per Hypoglycemia Protocol (see evidence link for details) Reconstitute with 1mL of Sterile Water for Injection. glucagon injection 1 mg 1 mg, Subcutaneous, As needed, low blood sugar, Starting on Thu09/12/22 at 1228, For BG < 55 mg/dL, per Hypoglycemia Protocol (see evidence link for details) Reconstitute with 1mL of Sterile Water for Injection. melatonin tablet 3 mg 3 mg, Oral, Nightly PRN, sleep, Starting on Thu08/27/22 at 2031 ondansetron (Zofran) tablet 4 mg 4 mg, Oral, Every 8 hours PRN, nausea/vomiting, Starting on Thu08/27/22 at 2031, See link for Algorithm for PRN Antiemetic Medications for Inpatients with Nausea/Vomiting zinc oxide (Desitin) 40 % topical paste Topical, 2 times daily PRN, rash, Starting on Thu08/29/22 at 0739, Apply to groin R side . documented in this encounter Additional Health Concerns Infection Onset Date Last Indicated Resolved Time Vernon auris Comment:C. Auris R/O surveillance. Swab growing yeast; pending speciation DO NOT COHORT Unless with current roommate until we get a species. 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 Advance Directives and Livin g Will 08/25/2022 3:00 PM Latest Code Status on File Code Status Date Activated Date Inactivated Comments Full Code 08/27/2022 8:32 PM 09/12/2022 4:15 PM Code Status History Code Status Date Activated Date Inactivated Comments Full Code 08/20/2022 12:29 AM 08/27/2022 8:30 PM Care Teams Vegetable 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
--- NOTE | 2023-01-28 15:48 | PT.OTN ---
Current Diagnoses Other cerebral infarction due to occlusion or stenosis of small artery (01/28/23) Weakness (01/28/23) Physical Therapy Treatment Note PT-OP-A Visit Information Start: 11/28/22 10:27 Freq: Status: Active Protocol: Document 01/28/23 14:35 NM (Rec: 01/28/23 15:48 NM [id number]) Out-Patient Physical Therapy Visit Information Visit Information Visit Type Treatment Note Visit Start Time 14:35 Visit Stop Time 15:18 Total Visit Minutes 43 Visit Number 16 PT-OP-B Current Condition Start: 11/28/22 10:27 Freq: Status: Active Protocol: Document 11/28/22 10:27 AM (Rec: 11/28/22 13:00 AM [id number]) Current Condition History of Current Condition History of Current Condition 82-year-old male with history of rheumatoid arthritis presenting with his 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 Pt has had multiple CVA one in June and 1 in July. Pt has mild expressive apasia and cognitive impairment. Following inpatient, pt went to SNF for 4 days, though had a heart attack, ketoacidosis, and another small stroke. Pt has trouble swallowing, therefore has a GI tube. Pt had lost a lot of weight, though gaining back now. reports that he is much weaker and needs to build strength and balance. Pt's denies falls. Pt has a FWW at home. reports that he is able to walk 50ft with FWW. Pt does not have stairs. Treatment Goals Patient/Caregiver Goals To improve strength and balance Prior Functional Status Baseline Function- ADL's Independent Baseline Function- Mobility Independent Current Functional Impairments (Reported) Functional Limitations- ADL's Assist from with ADLs Functional Limitations- Mobility/Gait Needs assist with bed mobility . Pt's reports that he is able to walk, though fatigues quickly. She reports that he takes smaller steps with R LE and demonstrates flexed posture. Pt sleeps inclined on couch secondary to feeding tube precautions. PT-OP-C Subjective Start: 11/28/22 10:27 Freq: Status: Active Protocol: Document 01/28/23 14:35 NM (Rec: 01/28/23 15:48 NM [id number]) OP-PT Subjective Patient Comments Patient Comments Pt reports no soreness or back pain today. His states that she thinks he has not been improving in his BLE strength and ambulation since beginning PT. She wants him to be able to ambulate without a FWW, similar to before his stroke. She also thinks that he has been dragging his L foot more than normal. PT-OP-D Balance Start: 11/28/22 10:27 Freq: Status: Active Protocol: Document 12/03/22 14:18 AM (Rec: 12/03/22 15:09 AM [id number]) Tinetti Balance Assessment Sitting Balance Sitting Balance Steady, safe Arising from Chair Ability to Arise Able, uses arms to help Attempts to Arise Able, requires >1 attempt Standing Balance Immediate Standing Balance Steady with support Standing Balance Narrow stance w/o support Nudged Response Steady Standing with Eyes Closed Steady Turning Step Pattern Turning 360 Degrees Discontinuous steps Stability Turning 360 Degrees Unsteady, grabs/staggers Sitting Down Sitting Down Uses arms or unsteady Gait and Step Initiation of Gait No hesitancy Right Foot Step Length Does pass stance foot Right Foot Step Height Does not clear floor Left Foot Step Length Does pass stance foot Left Foot Step Height Completely clears floor Step Description Step Symmetry Step length not equal Step Continuity Steps appear continuous Gait Description Path Description Straight Trunk Description No sway but posturing Walking Stance Heels together Scoring and Interpretation Tinetti Composite Score (points) 19 Interpretation of Scores At risk for falls (19-24) Tinetti Impairment Rating from Composite 20 to <40% Impaired (Score 17- Score 22) PT-OP-E Functional Tests Start: 11/28/22 10:27 Freq: Status: Active Protocol: Document 01/09/23 14:19 AM (Rec: 01/09/23 16:40 AM [id number]) Functional Tests 6 Minute Walk Test Distance 380 Device Used FWW PT-OP-G Mobility & Gait Start: 11/28/22 10:27 Freq: Status: Active Protocol: Document 11/28/22 10:27 AM (Rec: 11/28/22 17:39 AM [id number]) OP Mobility Evaluation Bed Mobility Rolling Pt able to roll independently from side to side on tx table, though reports that he is unable to roll side to side on bed at home. Supine to and from Sit Pt able to transfer from supine <-> sit on tx table, though slow and reports low back pain. Transfers Sit to Stand CGA for STS. Occasionally requires more than 1 attempt. Use of bryce UE. Bed to Chair Transfers Pt requires cueing to square up in front of surface that he is transfering to. Car Transfers Pt almost missed car seat with transfer from w/c to car seat . CGA required OP Gait Assessment Gait Gait Assistance Required: Contact Guard Assist Distance (Feet) 210 Assistive Devices Assistive Device Gait Belt,Front Wheeled Walker Orthotic/Prosthetic Devices or Brace: No Gait Deviations General Gait Pattern Decreased Stride Length,Flexed Trunk,Narrow Based Gait Factors Limiting Gait Function Factors Limiting Gait Function Decreased Activity Tolerance, Decreased Strength,Limited Range of Motion,Pain,Poor Balance Comments Gait Comments Pt demonstrated decreased stride length when fatigued. reports that he typically has a decreased R stride compared to L, though was able to demonstrate symmetry with gait today. PT-OP-J Posture/Palpation/Skin Start: 11/28/22 10:27 Freq: Status: Active Protocol: Document 11/28/22 10:27 AM (Rec: 11/28/22 17:39 AM [id number]) Posture Evaluation Position Standing Head/C-Spine Posture Forward Head L-Spine Posture Flexed Shoulder Posture (L) Forward,(R) Forward PT-OP-K Range of Motion Start: 11/28/22 10:27 Freq: Status: Active Protocol: Document 11/28/22 10:27 AM (Rec: 11/28/22 17:39 AM [id number]) Hip Goniometric Range of Motion Hip Right Passive Comments R hamstring moderately limited Left Passive Comments L hamstring with moderate limitations PT-OP-M Strength Start: 11/28/22 10:27 Freq: Status: Active Protocol: Document 11/28/22 10:27 AM (Rec: 11/28/22 17:39 AM [id number]) Hip Strength Hip Manual Muscle Testing Right Flexion (L2) 4- Good- Extension (S1) 4- Good- Abduction 4- Good- Adduction 4- Good- Left Flexion (L2) 4- Good- Extension (S1) 4- Good- Abduction 4- Good- Adduction 4- Good- Knee Strength Knee Manual Muscle Testing Right Flexion (S2) 4- Good- Extension (L3) 4- Good- Left Flexion (S2) 4- Good- Extension (L3) 4- Good- Ankle/Foot Strength Ankle and Foot Manual Muscle Testing Right Dorsiflexion (L4) 4- Good- Plantarflexion (S1) 4- Good- Left Dorsiflexion (L4) 4- Good- Plantarflexion (S1) 4- Good- PT-OP-Q Treatments Start: 11/28/22 10:27 Freq: Status: Active Protocol: Document 01/28/23 14:35 NM (Rec: 01/28/23 15:48 NM [id number]) Gym Equipment Shuttle Recovery Unilateral squat Details manual cue to dec R knee valgus, B TKE Resistance 50# (2 teal) Shuttle Recovery Platform Stable Reps/Time 2x30 (~15 reps) Bilateral squat Details cues for TKE, decreased speed Resistance 75# (2 teal) Shuttle Recovery Platform Stable Reps/Time 3x30 (about 15 reps ea) Therapeutic Exercises Sitting Exercises Hip abd Side bilateral Resistance lvl 3 tb around knees Reps/Minutes 2x15 Comments pt reports easy but compensates with trunk lean bkwd, will progress as silvestre Hip flex Side bilateral Resistance lvl 3 tb around knees anchored to floor for resistance Reps/Minutes 2x15 Comments pt reports easy, will progress to standing Gait Training Gait Activity Ambulation Device Used FWW Level of Assistance SBA Distance/Duration 2x80 ft, 400 ft Comments Tied green tb to front of FWW for external target to reach with B feet when stepping to encourage bigger step length. Pt chel improved step length with the target and is able to consistently perform a step through gait pattern. He still demos shuffling, but it is not as much with the target. PT-OP-T Assessment and Plan Start: 11/28/22 10:27 Freq: Status: Active Protocol: Document 01/28/23 14:35 NM (Rec: 01/28/23 15:48 NM [id number]) Physical Therapy Assessment Rehab Potential Rehabilitation Potential Good Evaluation Complexity Number of Personal Factors/Comorbidities 3 or More Number of Body Systems Impaired 4 or More Clinical Presentation at Evaluation Stable Impairments Impairments Activity Tolerance,Balance, Coordination,Functional Activities,Functional Mobility ,Gait,Pain,Posture,ROM,Soft Tissue Mobility,Strength, Transfers Goals Tinetti Impairment Pt with score of 19 on Tinetti . Short Term Goal (STG) Pt with score of 22 on Tinetti . 12/29/22: Pt with score of 19 on Tinnetti. STG Duration 01/02/23 Care Home Goal (LTG) Pt with score of 25 on Tinetti . LTG Duration 02/06/23 Strength Impairment Pt with LE strength grossly at 4-/5. Short Term Goal (STG) Pt with strength grossly at 4/ 5. 12/29/22: Pt with LE strength grossly from 4-/5 to 4/5. Progressing towards goal. STG Duration 01/02/23 Medical Lab Tech Instructor Goal (LTG) PT with LE strength grossly at 4+/5 LTG Duration 02/06/23 HEP Medical Lab Tech Instructor Goal (LTG) Pt independent with HEP. LTG Duration 02/06/23 Bed mobility Impairment Pt unable to roll in bed at home or transfer from supine to sit without assist from . Short Term Goal (STG) Pt able to roll and transfer from supine-sit without assist at bed at home. STG Duration 01/02/23 Gait Impairment Pt able to walk 210 ft before need to sit secondary to fatigue. Pt able to walk 361 ft in 6 MWT. Short Term Goal (STG) Pt able to ambulate 500 ft before need to sit secondary to fatigue. 12/19/22: progressed 100ft c/ fww close SBA, 16, 75 ft c/ trekpoles Min A. 12/29/22: Pt able to walk 370ft before need to sit secondary to fatigue. Pt able to walk 370 ft during 6MWT with FWW. 01/09/23: Pt able to walk 385ft before need to sit. STG Duration 01/02/23 progressing 12/19/22 Medical Lab Tech Instructor Goal (LTG) Pt able to ambulate 1000ft before need to sit secondary to fatigue. LTG Duration 02/06/23 Assessment Summary Assessment Pt tolerated treatment well. Tmt focus on BLE strengthening and gait. Ambulation with tb tied around front legs of walker to provide an external target for pt to reach for with BLE when stepping for larger step length. He demos bigger steps and a step through gait pattern using target; however, does shuffle his feet even with mod cueing. Progressed the B squat number of sets and uni squat resistance today, which pt able to perform but with difficulty. He fatigues easily and requires rest between sets. Pt's is concerned about pt's lack of progress ( according to her) but also reports that they are not doing exercises outside of PT or ambulating outside of sessions. PT discussed importance of completing HEP to maximize gains from PT sessions, which pt and agreed to verbally. Pt would benefit from skilled PT to address impairments in BLE strength, gait, and balance to improve safety awareness, decrease fall risk, and decrease caregiver burden. Physical Therapy Plan Frequency and Duration Frequency of Treatment 2x/Week Duration of treatment (weeks) 10 Plan of Care Start Date 11/28/22 Plan of Care End Date 02/06/23 Therapeutic Interventions Therapeutic Interventions Balance Training,Coordination Training,Gait Training,Home Exercise Program,Joint Mobilizations,Manual Therapy, Neuromuscular Re-education, Patient/Caregiver Education, Self-Care/Home Management,Soft Tissue Mobilization,Taping, Therapeutic Activities, Therapeutic Exercises Modalities Cold Pack/Ice Massage,Electric Stimulation,Hot Packs, Ultrasound Next Visit Focus/Plan Next Note Type Progress Note Next Visit Plan Continue LE strengthening and trunk stabilization exercises, cont transfer/log roll edu. POC: Continue added resistance to LE PREs and progress into higher level balance challenges.
--- NOTE | 2023-02-04 16:40 | PT.OTN ---
Current Diagnoses Other cerebral infarction due to occlusion or stenosis of small artery (02/04/23) Weakness (02/04/23) Physical Therapy Treatment Note PT-OP-A Visit Information Start: 11/28/22 10:27 Freq: Status: Active Protocol: Document 02/04/23 16:08 NM (Rec: 02/04/23 16:39 NM [id number]) Out-Patient Physical Therapy Visit Information Visit Information Visit Type Progress Note Visit Start Time 14:30 Visit Stop Time 15:15 Total Visit Minutes 45 Visit Number 17 Evaluation Information Evaluation Date 11/28/22 Precautions Precautions *Fall risk *Feeding tube (gait belt at chest above tubing). *Caution thin liquids, sips water ok (12/19/22). PT-OP-B Current Condition Start: 11/28/22 10:27 Freq: Status: Active Protocol: Document 11/28/22 10:27 AM (Rec: 11/28/22 13:00 AM [id number]) Current Condition History of Current Condition History of Current Condition 82-year-old male with history of rheumatoid arthritis presenting with his 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 Pt has had multiple CVA one in June and 1 in July. Pt has mild expressive apasia and cognitive impairment. Following inpatient, pt went to SNF for 4 days, though had a heart attack, ketoacidosis, and another small stroke. Pt has trouble swallowing, therefore has a GI tube. Pt had lost a lot of weight, though gaining back now. reports that he is much weaker and needs to build strength and balance. Pt's denies falls. Pt has a FWW at home. reports that he is able to walk 50ft with FWW. Pt does not have stairs. Treatment Goals Patient/Caregiver Goals To improve strength and balance Prior Functional Status Baseline Function- ADL's Independent Baseline Function- Mobility Independent Current Functional Impairments (Reported) Functional Limitations- ADL's Assist from with ADLs Functional Limitations- Mobility/Gait Needs assist with bed mobility . Pt's reports that he is able to walk, though fatigues quickly. She reports that he takes smaller steps with R LE and demonstrates flexed posture. Pt sleeps inclined on couch secondary to feeding tube precautions. PT-OP-C Subjective Start: 11/28/22 10:27 Freq: Status: Active Protocol: Document 02/04/23 16:08 NM (Rec: 02/04/23 16:39 NM [id number]) OP-PT Subjective Patient Comments Patient Comments Pt does not report any back soreness or pain today. He states that he is tired but doing well. His reports that she thinks he is shuffling his R foot more and his BLE strength has decreased since his IE. They would like to continue PT to address BLE strengthening, balance, and transfers. PT-OP-D Balance Start: 11/28/22 10:27 Freq: Status: Active Protocol: Document 12/03/22 14:18 AM (Rec: 12/03/22 15:09 AM [id number]) Tinetti Balance Assessment Sitting Balance Sitting Balance Steady, safe Arising from Chair Ability to Arise Able, uses arms to help Attempts to Arise Able, requires >1 attempt Standing Balance Immediate Standing Balance Steady with support Standing Balance Narrow stance w/o support Nudged Response Steady Standing with Eyes Closed Steady Turning Step Pattern Turning 360 Degrees Discontinuous steps Stability Turning 360 Degrees Unsteady, grabs/staggers Sitting Down Sitting Down Uses arms or unsteady Gait and Step Initiation of Gait No hesitancy Right Foot Step Length Does pass stance foot Right Foot Step Height Does not clear floor Left Foot Step Length Does pass stance foot Left Foot Step Height Completely clears floor Step Description Step Symmetry Step length not equal Step Continuity Steps appear continuous Gait Description Path Description Straight Trunk Description No sway but posturing Walking Stance Heels together Scoring and Interpretation Tinetti Composite Score (points) 19 Interpretation of Scores At risk for falls (19-24) Tinetti Impairment Rating from Composite 20 to <40% Impaired (Score 17- Score 22) PT-OP-E Functional Tests Start: 11/28/22 10:27 Freq: Status: Active Protocol: Document 01/09/23 14:19 AM (Rec: 01/09/23 16:40 AM [id number]) Functional Tests 6 Minute Walk Test Distance 380 Device Used FWW PT-OP-G Mobility & Gait Start: 11/28/22 10:27 Freq: Status: Active Protocol: Document 11/28/22 10:27 AM (Rec: 11/28/22 17:39 AM [id number]) OP Mobility Evaluation Bed Mobility Rolling Pt able to roll independently from side to side on tx table, though reports that he is unable to roll side to side on bed at home. Supine to and from Sit Pt able to transfer from supine <-> sit on tx table, though slow and reports low back pain. Transfers Sit to Stand CGA for STS. Occasionally requires more than 1 attempt. Use of bryce UE. Bed to Chair Transfers Pt requires cueing to square up in front of surface that he is transfering to. Car Transfers Pt almost missed car seat with transfer from w/c to car seat . CGA required OP Gait Assessment Gait Gait Assistance Required: Contact Guard Assist Distance (Feet) 210 Assistive Devices Assistive Device Gait Belt,Front Wheeled Walker Orthotic/Prosthetic Devices or Brace: No Gait Deviations General Gait Pattern Decreased Stride Length,Flexed Trunk,Narrow Based Gait Factors Limiting Gait Function Factors Limiting Gait Function Decreased Activity Tolerance, Decreased Strength,Limited Range of Motion,Pain,Poor Balance Comments Gait Comments Pt demonstrated decreased stride length when fatigued. reports that he typically has a decreased R stride compared to L, though was able to demonstrate symmetry with gait today. PT-OP-J Posture/Palpation/Skin Start: 11/28/22 10:27 Freq: Status: Active Protocol: Document 11/28/22 10:27 AM (Rec: 11/28/22 17:39 AM [id number]) Posture Evaluation Position Standing Head/C-Spine Posture Forward Head L-Spine Posture Flexed Shoulder Posture (L) Forward,(R) Forward PT-OP-K Range of Motion Start: 11/28/22 10:27 Freq: Status: Active Protocol: Document 11/28/22 10:27 AM (Rec: 11/28/22 17:39 AM [id number]) Hip Goniometric Range of Motion Hip Right Passive Comments R hamstring moderately limited Left Passive Comments L hamstring with moderate limitations PT-OP-M Strength Start: 11/28/22 10:27 Freq: Status: Active Protocol: Document 11/28/22 10:27 AM (Rec: 11/28/22 17:39 AM [id number]) Hip Strength Hip Manual Muscle Testing Right Flexion (L2) 4- Good- Extension (S1) 4- Good- Abduction 4- Good- Adduction 4- Good- Left Flexion (L2) 4- Good- Extension (S1) 4- Good- Abduction 4- Good- Adduction 4- Good- Knee Strength Knee Manual Muscle Testing Right Flexion (S2) 4- Good- Extension (L3) 4- Good- Left Flexion (S2) 4- Good- Extension (L3) 4- Good- Ankle/Foot Strength Ankle and Foot Manual Muscle Testing Right Dorsiflexion (L4) 4- Good- Plantarflexion (S1) 4- Good- Left Dorsiflexion (L4) 4- Good- Plantarflexion (S1) 4- Good- PT-OP-Q Treatments Start: 11/28/22 10:27 Freq: Status: Active Protocol: Document 02/04/23 16:08 NM (Rec: 02/04/23 16:39 NM [id number]) Gym Equipment Shuttle Recovery Unilateral squat Details green tb at knees to prevent valgus Resistance 50# Shuttle Recovery Platform Stable Reps/Time 2x8 Bilateral squat Details cues for TKE, decreased speed Resistance 75# (2 teal) Shuttle Recovery Platform Stable Reps/Time 3x8 Therapeutic Exercises Sitting Exercises STS Sitting Exercise Name no UE use Side bilateral Equipment Used with fwd reach for anterior wt shift Reps/Minutes 5x5 Comments cues for fwd wt shift, scoot to EOS to prevent retropulsion Standing Exercises Toe raises Standing Exercise Name for ankle DF Side bilateral Equipment Used ballerina bar for UE support Reps/Minutes 2x10 Comments cues to prevent rocking backward, DF activation Side step Standing Exercise Name for hip abduction strengthening Side bilateral Resistance blue tb around knees Equipment Used ballerina bar for UE support Reps/Minutes 2 min Comments cues for neutral hip/foot rotation Calf raises Side bilateral Equipment Used ballerina bar Reps/Minutes 2x10 Comments cues for execution, to keep pt on task marching Standing Exercise Name standing marching Side bilateral Resistance blue band around thighs Equipment Used ballerina bar for support Reps/Minutes 2x8 Comments cues for inc hip flex range Gait Training Gait Activity 6MWT Device Used FWW Level of Assistance SBA Surface stable Distance/Duration 300 ft Treatment Focus nml gait mechanics, foot clearance, step length Comments Pt continues to shuffle R foot sheldon as fatigued, does not always step through equal to L foot Neuro Re-Education Treatment Balance Activities Tinetti Details Surface stable Comments Difficulty with turning 360 deg without mod sway and LOB/ reaching, difficulty with eyes closed. Primarily marked down on gait section. PT-OP-T Assessment and Plan Start: 11/28/22 10:27 Freq: Status: Active Protocol: Document 02/04/23 16:08 NM (Rec: 02/04/23 16:39 NM [id number]) Physical Therapy Assessment Goals Tinetti Impairment Pt with score of 19 on Tinetti . Short Term Goal (STG) Pt with score of 22 on Tinetti . 12/29/22: Pt with score of 19 on Tinnetti. 02/04/23: STG Duration 01/02/23 Industrial Tractor Driver Goal (LTG) Pt with score of 25 on Tinetti . 02/04/23: NOT MET LTG Duration 04/15/23 Strength Impairment Pt with LE strength grossly at 4-/5. Short Term Goal (STG) Pt with strength grossly at 4/ 5. 12/29/22: Pt with LE strength grossly from 4-/5 to 4/5. Progressing towards goal. 02/04/23: MET global LE strength 4/5 STG Duration 01/02/23 MET Industrial Tractor Driver Goal (LTG) PT with LE strength grossly at 4+/5 02/04/23: NOT MET, pt at 4/5 BLE strength LTG Duration 04/15/23 HEP Industrial Tractor Driver Goal (LTG) Pt independent with HEP. 02/04/23: NOT MET LTG Duration 04/15/23 Bed mobility Impairment Pt unable to roll in bed at home or transfer from supine to sit without assist from . Short Term Goal (STG) Pt able to roll and transfer from supine-sit without assist at bed at home. STG Duration 01/02/23 LTG Duration 04/15/23 Gait Impairment Pt able to walk 210 ft before need to sit secondary to fatigue. Pt able to walk 361 ft in 6 MWT. Short Term Goal (STG) Pt able to ambulate 500 ft before need to sit secondary to fatigue. 12/19/22: progressed 100ft c/ fww close SBA, 16, 75 ft c/ trekpoles Min A. 12/29/22: Pt able to walk 370ft before need to sit secondary to fatigue. Pt able to walk 370 ft during 6MWT with FWW. 01/09/23: Pt able to walk 385ft before need to sit. 02/04/23: NOT MET, pt able to ambulate with FWW 300 ft before needing a seated break STG Duration 01/02/23 progressing 12/19/22 Industrial Tractor Driver Goal (LTG) Pt able to ambulate 1000ft before need to sit secondary to fatigue. 02/04/23: NOT MET LTG Duration 04/15/23 Progress Towards Goals Progress Towards Goals Slow Progress due to Activity Tolerance,Slow Progress - Other Progress Comments Pt has not been compliant with HEP for strengthening outside of PT sessions and has not been ambulating due to the weather. Assessment Summary Assessment PN today. Pt tolerated strengthening tmt well. Addition of side steps, standing marches, toe raises, heel raises, STS/squats. Continued with BLE and ULE squats on leg press; will progress resistance next session for a few sets to pt tolerance. Also added to HEP. Pt continues to fatigue easily , especially with gait and his gait speed is reduced. He continues to require cues to not shuffle his foot (R>L) and for a step-through pattern to prevent dragging RLE. Physical Therapy Plan Frequency and Duration Frequency of Treatment 2x/Week Duration of treatment (weeks) 10 Plan of Care Start Date 11/28/22 Plan of Care End Date 04/15/23 Therapeutic Interventions Therapeutic Interventions Balance Training,Coordination Training,Gait Training,Home Exercise Program,Joint Mobilizations,Manual Therapy, Neuromuscular Re-education, Patient/Caregiver Education, Self-Care/Home Management,Soft Tissue Mobilization,Taping, Therapeutic Activities, Therapeutic Exercises Modalities Cold Pack/Ice Massage,Electric Stimulation,Hot Packs, Ultrasound Next Visit Focus/Plan Next Note Type Progress Note Next Visit Plan Continue LE strengthening and trunk stabilization exercises, cont transfer/log roll edu. POC: Continue added resistance to LE PREs and progress into higher level balance challenges.
--- NOTE | 2023-02-04 16:47 | PT.OPPN ---
Current Diagnoses Other cerebral infarction due to occlusion or stenosis of small artery (02/04/23) Weakness (02/04/23) Physical Therapy Progress Note PT-OP-A Visit Information Start: 11/28/22 10:27 Freq: Status: Active Protocol: Document 02/04/23 16:08 NM (Rec: 02/04/23 16:39 NM [id number]) Out-Patient Physical Therapy Visit Information Visit Information Visit Type Progress Note Visit Start Time 14:30 Visit Stop Time 15:15 Total Visit Minutes 45 Visit Number 17 Evaluation Information Evaluation Date 11/28/22 Precautions Precautions *Fall risk *Feeding tube (gait belt at chest above tubing). *Caution thin liquids, sips water ok (12/19/22). PT-OP-B Current Condition Start: 11/28/22 10:27 Freq: Status: Active Protocol: Document 11/28/22 10:27 AM (Rec: 11/28/22 13:00 AM [id number]) Current Condition History of Current Condition History of Current Condition 82-year-old male with history of rheumatoid arthritis presenting with his 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 Pt has had multiple CVA one in June and 1 in July. Pt has mild expressive apasia and cognitive impairment. Following inpatient, pt went to SNF for 4 days, though had a heart attack, ketoacidosis, and another small stroke. Pt has trouble swallowing, therefore has a GI tube. Pt had lost a lot of weight, though gaining back now. reports that he is much weaker and needs to build strength and balance. Pt's denies falls. Pt has a FWW at home. reports that he is able to walk 50ft with FWW. Pt does not have stairs. Treatment Goals Patient/Caregiver Goals To improve strength and balance Prior Functional Status Baseline Function- ADL's Independent Baseline Function- Mobility Independent Current Functional Impairments (Reported) Functional Limitations- ADL's Assist from with ADLs Functional Limitations- Mobility/Gait Needs assist with bed mobility . Pt's reports that he is able to walk, though fatigues quickly. She reports that he takes smaller steps with R LE and demonstrates flexed posture. Pt sleeps inclined on couch secondary to feeding tube precautions. PT-OP-C Subjective Start: 11/28/22 10:27 Freq: Status: Active Protocol: Document 02/04/23 16:08 NM (Rec: 02/04/23 16:39 NM [id number]) OP-PT Subjective Patient Comments Patient Comments Pt does not report any back soreness or pain today. He states that he is tired but doing well. His reports that she thinks he is shuffling his R foot more and his BLE strength has decreased since his IE. They would like to continue PT to address BLE strengthening, balance, and transfers. PT-OP-D Balance Start: 11/28/22 10:27 Freq: Status: Active Protocol: Document 12/03/22 14:18 AM (Rec: 12/03/22 15:09 AM [id number]) Tinetti Balance Assessment Sitting Balance Sitting Balance Steady, safe Arising from Chair Ability to Arise Able, uses arms to help Attempts to Arise Able, requires >1 attempt Standing Balance Immediate Standing Balance Steady with support Standing Balance Narrow stance w/o support Nudged Response Steady Standing with Eyes Closed Steady Turning Step Pattern Turning 360 Degrees Discontinuous steps Stability Turning 360 Degrees Unsteady, grabs/staggers Sitting Down Sitting Down Uses arms or unsteady Gait and Step Initiation of Gait No hesitancy Right Foot Step Length Does pass stance foot Right Foot Step Height Does not clear floor Left Foot Step Length Does pass stance foot Left Foot Step Height Completely clears floor Step Description Step Symmetry Step length not equal Step Continuity Steps appear continuous Gait Description Path Description Straight Trunk Description No sway but posturing Walking Stance Heels together Scoring and Interpretation Tinetti Composite Score (points) 19 Interpretation of Scores At risk for falls (19-24) Tinetti Impairment Rating from Composite 20 to <40% Impaired (Score 17- Score 22) PT-OP-E Functional Tests Start: 11/28/22 10:27 Freq: Status: Active Protocol: Document 01/09/23 14:19 AM (Rec: 01/09/23 16:40 AM [id number]) Functional Tests 6 Minute Walk Test Distance 380 Device Used FWW PT-OP-G Mobility & Gait Start: 11/28/22 10:27 Freq: Status: Active Protocol: Document 11/28/22 10:27 AM (Rec: 11/28/22 17:39 AM [id number]) OP Mobility Evaluation Bed Mobility Rolling Pt able to roll independently from side to side on tx table, though reports that he is unable to roll side to side on bed at home. Supine to and from Sit Pt able to transfer from supine <-> sit on tx table, though slow and reports low back pain. Transfers Sit to Stand CGA for STS. Occasionally requires more than 1 attempt. Use of bryce UE. Bed to Chair Transfers Pt requires cueing to square up in front of surface that he is transfering to. Car Transfers Pt almost missed car seat with transfer from w/c to car seat . CGA required OP Gait Assessment Gait Gait Assistance Required: Contact Guard Assist Distance (Feet) 210 Assistive Devices Assistive Device Gait Belt,Front Wheeled Walker Orthotic/Prosthetic Devices or Brace: No Gait Deviations General Gait Pattern Decreased Stride Length,Flexed Trunk,Narrow Based Gait Factors Limiting Gait Function Factors Limiting Gait Function Decreased Activity Tolerance, Decreased Strength,Limited Range of Motion,Pain,Poor Balance Comments Gait Comments Pt demonstrated decreased stride length when fatigued. reports that he typically has a decreased R stride compared to L, though was able to demonstrate symmetry with gait today. PT-OP-J Posture/Palpation/Skin Start: 11/28/22 10:27 Freq: Status: Active Protocol: Document 11/28/22 10:27 AM (Rec: 11/28/22 17:39 AM [id number]) Posture Evaluation Position Standing Head/C-Spine Posture Forward Head L-Spine Posture Flexed Shoulder Posture (L) Forward,(R) Forward PT-OP-K Range of Motion Start: 11/28/22 10:27 Freq: Status: Active Protocol: Document 11/28/22 10:27 AM (Rec: 11/28/22 17:39 AM [id number]) Hip Goniometric Range of Motion Hip Measured in Degrees Right Passive Comments R hamstring moderately limited Left Passive Comments L hamstring with moderate limitations PT-OP-M Strength Start: 11/28/22 10:27 Freq: Status: Active Protocol: Document 11/28/22 10:27 AM (Rec: 11/28/22 17:39 AM [id number]) Hip Strength Hip Manual Muscle Testing Right Flexion (L2) 4- Good- Extension (S1) 4- Good- Abduction 4- Good- Adduction 4- Good- Left Flexion (L2) 4- Good- Extension (S1) 4- Good- Abduction 4- Good- Adduction 4- Good- Knee Strength Knee Manual Muscle Testing Right Flexion (S2) 4- Good- Extension (L3) 4- Good- Left Flexion (S2) 4- Good- Extension (L3) 4- Good- Ankle/Foot Strength Ankle and Foot Manual Muscle Testing Right Dorsiflexion (L4) 4- Good- Plantarflexion (S1) 4- Good- Left Dorsiflexion (L4) 4- Good- Plantarflexion (S1) 4- Good- PT-OP-T Assessment and Plan Start: 11/28/22 10:27 Freq: Status: Active Protocol: Document 02/04/23 16:08 NM (Rec: 02/04/23 16:39 NM [id number]) Physical Therapy Assessment Goals Tinetti Impairment Pt with score of 19 on Tinetti . Short Term Goal (STG) Pt with score of 22 on Tinetti . 12/29/22: Pt with score of 19 on Tinnetti. 02/04/23: STG Duration 01/02/23 [employer]ental [employer] Goal (LTG) Pt with score of 25 on Tinetti . 02/04/23: NOT MET LTG Duration 04/15/23 Strength Impairment Pt with LE strength grossly at 4-/5. Short Term Goal (STG) Pt with strength grossly at 4/ 5. 12/29/22: Pt with LE strength grossly from 4-/5 to 4/5. Progressing towards goal. 02/04/23: MET global LE strength 4/5 STG Duration 01/02/23 MET [employer] Goal (LTG) PT with LE strength grossly at 4+/5 02/04/23: NOT MET, pt at 4/5 BLE strength LTG Duration 04/15/23 HEP [employer] Goal (LTG) Pt independent with HEP. 02/04/23: NOT MET LTG Duration 04/15/23 Bed mobility Impairment Pt unable to roll in bed at home or transfer from supine to sit without assist from . Short Term Goal (STG) Pt able to roll and transfer from supine-sit without assist at bed at home. STG Duration 01/02/23 LTG Duration 04/15/23 Gait Impairment Pt able to walk 210 ft before need to sit secondary to fatigue. Pt able to walk 361 ft in 6 MWT. Short Term Goal (STG) Pt able to ambulate 500 ft before need to sit secondary to fatigue. 12/19/22: progressed 100ft c/ fww close SBA, 16, 75 ft c/ trekpoles Min A. 12/29/22: Pt able to walk 370ft before need to sit secondary to fatigue. Pt able to walk 370 ft during 6MWT with FWW. 01/09/23: Pt able to walk 385ft before need to sit. 02/04/23: NOT MET, pt able to ambulate with FWW 300 ft before needing a seated break STG Duration 01/02/23 progressing 12/19/22 [employer] Manager Goal (LTG) Pt able to ambulate 1000ft before need to sit secondary to fatigue. 02/04/23: NOT MET LTG Duration 04/15/23 Progress Towards Goals Progress Towards Goals Slow Progress due to Activity Tolerance,Slow Progress - Other Progress Comments Pt has not been compliant with HEP for strengthening outside of PT sessions and has not been ambulating due to the weather. Assessment Summary Assessment PN today. Pt tolerated strengthening tmt well. Addition of side steps, standing marches, toe raises, heel raises, STS/squats. Continued with BLE and ULE squats on leg press; will progress resistance next session for a few sets to pt tolerance. Also added to HEP. Pt continues to fatigue easily , especially with gait and his gait speed is reduced. He continues to require cues to not shuffle his foot (R>L) and for a step-through pattern to prevent dragging RLE. Pt has been seen in clinic since 11/28/22 for BLE strengthening, balance, gait s /p stroke. Pt is progressing toward his BLE strengthening goal, improving his BLE MMT score by 1 grade (4/5). However, he fatigues easily, limiting his activity tolerance. Pt has not improved his Tinetti score (16/28) and continues to be a high fall risk. His 6 MWT distance has decreased by nearly 50 ft ( 300ft). Gait is slow, shuffling, and is fatiguing. He is able to perform transfers and STS SBA, but he requires moderate cueing at time for safety (e.g. fwd weight shift before STS, moving closer to EOS before trying to sit). PT discussed this with pt's who reports that she thinks it is not related to short term memory or stroke deficits, and she reports that his BLE strength has not improved since PT because he is not back to PLOF. PT discussed with pt's about the possibility of residual deficits from stroke; pt's also reports that they are not performing HEP or ambulating at home and only attendign 1x/wk. PT discussed importance of performing HEP to maximize any gains made during PT sessions as 1x/wk is not enough for this dx. Pt's verbalizes understanding. Pt would benefit from further skilled PT to address impairments in BLE strength, gait, balance, and safety during transfers to decrease fall risk and reduce caregiver burden. Physical Therapy Plan Frequency and Duration Frequency of Treatment 2x/Week Duration of treatment (weeks) 10 Plan of Care Start Date 11/28/22 Plan of Care End Date 04/15/23 Therapeutic Interventions Therapeutic Interventions Balance Training,Coordination Training,Gait Training,Home Exercise Program,Joint Mobilizations,Manual Therapy, Neuromuscular Re-education, Patient/Caregiver Education, Self-Care/Home Management,Soft Tissue Mobilization,Taping, Therapeutic Activities, Therapeutic Exercises Modalities Cold Pack/Ice Massage,Electric Stimulation,Hot Packs, Ultrasound Next Visit Focus/Plan Next Note Type Progress Note Next Visit Plan Continue LE strengthening and trunk stabilization exercises, cont transfer/log roll edu. POC: Continue added resistance to LE PREs and progress into higher level balance challenges.
--- NOTE | 2023-02-25 15:42 | PT.OTN ---
Current Diagnoses Other cerebral infarction due to occlusion or stenosis of small artery (02/25/23) Weakness (02/25/23) Physical Therapy Treatment Note PT-OP-A Visit Information Start: 11/28/22 10:27 Freq: Status: Active Protocol: Document 02/25/23 14:29 NM (Rec: 02/25/23 15:42 NM [id number]) Out-Patient Physical Therapy Visit Information Visit Information Visit Type Treatment Note Visit Note 03/13 2023 KX after 19 visits 2023 Visit Start Time 14:30 Visit Stop Time 15:15 Total Visit Minutes 45 Visit Number 18 Evaluation Information Evaluation Date 11/28/22 Precautions Precautions *Fall risk *Feeding tube (gait belt at chest above tubing). *Caution thin liquids, sips water ok (12/19/22). PT-OP-B Current Condition Start: 11/28/22 10:27 Freq: Status: Active Protocol: Document 11/28/22 10:27 AM (Rec: 11/28/22 13:00 AM [id number]) Current Condition History of Current Condition History of Current Condition 82-year-old male with history of rheumatoid arthritis presenting with his 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 Pt has had multiple CVA one in June and 1 in July. Pt has mild expressive apasia and cognitive impairment. Following inpatient, pt went to SNF for 4 days, though had a heart attack, ketoacidosis, and another small stroke. Pt has trouble swallowing, therefore has a GI tube. Pt had lost a lot of weight, though gaining back now. reports that he is much weaker and needs to build strength and balance. Pt's denies falls. Pt has a FWW at home. reports that he is able to walk 50ft with FWW. Pt does not have stairs. Treatment Goals Patient/Caregiver Goals To improve strength and balance Prior Functional Status Baseline Function- ADL's Independent Baseline Function- Mobility Independent Current Functional Impairments (Reported) Functional Limitations- ADL's Assist from with ADLs Functional Limitations- Mobility/Gait Needs assist with bed mobility . Pt's reports that he is able to walk, though fatigues quickly. She reports that he takes smaller steps with R LE and demonstrates flexed posture. Pt sleeps inclined on couch secondary to feeding tube precautions. PT-OP-C Subjective Start: 11/28/22 10:27 Freq: Status: Active Protocol: Document 02/25/23 14:29 NM (Rec: 02/25/23 15:42 NM [id number]) OP-PT Subjective Patient Comments Patient Comments Pt reports that he is fatigued today. attended session as she reports pt is having difficulty performing HEP and she is unsure that he can perform all exercises. PT-OP-D Balance Start: 11/28/22 10:27 Freq: Status: Active Protocol: Document 12/03/22 14:18 AM (Rec: 12/03/22 15:09 AM [id number]) Tinetti Balance Assessment Sitting Balance Sitting Balance Steady, safe Arising from Chair Ability to Arise Able, uses arms to help Attempts to Arise Able, requires >1 attempt Standing Balance Immediate Standing Balance Steady with support Standing Balance Narrow stance w/o support Nudged Response Steady Standing with Eyes Closed Steady Turning Step Pattern Turning 360 Degrees Discontinuous steps Stability Turning 360 Degrees Unsteady, grabs/staggers Sitting Down Sitting Down Uses arms or unsteady Gait and Step Initiation of Gait No hesitancy Right Foot Step Length Does pass stance foot Right Foot Step Height Does not clear floor Left Foot Step Length Does pass stance foot Left Foot Step Height Completely clears floor Step Description Step Symmetry Step length not equal Step Continuity Steps appear continuous Gait Description Path Description Straight Trunk Description No sway but posturing Walking Stance Heels together Scoring and Interpretation Tinetti Composite Score (points) 19 Interpretation of Scores At risk for falls (19-24) Tinetti Impairment Rating from Composite 20 to <40% Impaired (Score 17- Score 22) PT-OP-E Functional Tests Start: 11/28/22 10:27 Freq: Status: Active Protocol: Document 01/09/23 14:19 AM (Rec: 01/09/23 16:40 AM [id number]) Functional Tests 6 Minute Walk Test Distance 380 Device Used FWW PT-OP-G Mobility & Gait Start: 11/28/22 10:27 Freq: Status: Active Protocol: Document 11/28/22 10:27 AM (Rec: 11/28/22 17:39 AM [id number]) OP Mobility Evaluation Bed Mobility Rolling Pt able to roll independently from side to side on tx table, though reports that he is unable to roll side to side on bed at home. Supine to and from Sit Pt able to transfer from supine <-> sit on tx table, though slow and reports low back pain. Transfers Sit to Stand CGA for STS. Occasionally requires more than 1 attempt. Use of bryce UE. Bed to Chair Transfers Pt requires cueing to square up in front of surface that he is transfering to. Car Transfers Pt almost missed car seat with transfer from w/c to car seat . CGA required OP Gait Assessment Gait Gait Assistance Required: Contact Guard Assist Distance (Feet) 210 Assistive Devices Assistive Device Gait Belt,Front Wheeled Walker Orthotic/Prosthetic Devices or Brace: No Gait Deviations General Gait Pattern Decreased Stride Length,Flexed Trunk,Narrow Based Gait Factors Limiting Gait Function Factors Limiting Gait Function Decreased Activity Tolerance, Decreased Strength,Limited Range of Motion,Pain,Poor Balance Comments Gait Comments Pt demonstrated decreased stride length when fatigued. reports that he typically has a decreased R stride compared to L, though was able to demonstrate symmetry with gait today. PT-OP-J Posture/Palpation/Skin Start: 11/28/22 10:27 Freq: Status: Active Protocol: Document 11/28/22 10:27 AM (Rec: 11/28/22 17:39 AM [id number]) Posture Evaluation Position Standing Head/C-Spine Posture Forward Head L-Spine Posture Flexed Shoulder Posture (L) Forward,(R) Forward PT-OP-K Range of Motion Start: 11/28/22 10:27 Freq: Status: Active Protocol: Document 11/28/22 10:27 AM (Rec: 11/28/22 17:39 AM [id number]) Hip Goniometric Range of Motion Hip Right Passive Comments R hamstring moderately limited Left Passive Comments L hamstring with moderate limitations PT-OP-M Strength Start: 11/28/22 10:27 Freq: Status: Active Protocol: Document 11/28/22 10:27 AM (Rec: 11/28/22 17:39 AM [id number]) Hip Strength Hip Manual Muscle Testing Right Flexion (L2) 4- Good- Extension (S1) 4- Good- Abduction 4- Good- Adduction 4- Good- Left Flexion (L2) 4- Good- Extension (S1) 4- Good- Abduction 4- Good- Adduction 4- Good- Knee Strength Knee Manual Muscle Testing Right Flexion (S2) 4- Good- Extension (L3) 4- Good- Left Flexion (S2) 4- Good- Extension (L3) 4- Good- Ankle/Foot Strength Ankle and Foot Manual Muscle Testing Right Dorsiflexion (L4) 4- Good- Plantarflexion (S1) 4- Good- Left Dorsiflexion (L4) 4- Good- Plantarflexion (S1) 4- Good- PT-OP-Q Treatments Start: 11/28/22 10:27 Freq: Status: Active Protocol: Document 02/25/23 14:29 NM (Rec: 02/25/23 15:42 NM [id number]) Gym Equipment Shuttle Recovery Unilateral squat Details green tb at knees to prevent valgus Resistance 62# Shuttle Recovery Platform Stable Reps/Time 2x10 - medium effort Bilateral squat Details cues for TKE, decreased speed Resistance 75# (2 teal) Shuttle Recovery Platform Stable Reps/Time 3x10 Therapeutic Exercises Standing Exercises Toe raises Standing Exercise Name for ankle DF Side bilateral Equipment Used ballerina bar for UE support Reps/Minutes 2x10 Comments cues to prevent rocking backward, DF activation Calf raises Side bilateral Equipment Used ballerina bar Reps/Minutes 2x10 Comments cues for execution, prevent rocking; pt with limited ROM due to RA marching Standing Exercise Name standing marching Side bilateral Resistance [place] green band around thighs Equipment Used ballerina bar for support Reps/Minutes 2x12 Comments cues for inc hip flex range, minimize UE use Other Exercises Squat Other Exercise Name heavy reliance on UE Side bilateral Equipment Used //bar for UE support, chair behind pt for target Reps/Minutes 1x10 Comments cues to prevent knee valgus. cued to decrease range to limit UE reliance Therapeutic Activity Therapeutic Activity Transfers Name Stand pivot transfer Reps/Minutes multiple reps during session to/from chair, leg press Comments Pt is SBA with occasional CGA to stand and during transfer for safety. Requires moderate cues for correct execution as pt attempts to leave RW and sit rather than attempting to back up to surface before sitting. Sit to stand Name STS with fwd reach to target, no UE use Reps/Minutes 1x10 Comments SBA for safety, requires cues to scoot to edge of chair. PT hand as target for pt reaching toward to facilitate anterior weight shift and to limit retropulsion. Pt able to rise on first attempt 7/10 reps. Requires cues for slower descent, anterior weight shift during descent as well. placed hand on pt's gait belt to see that pt is performing motion independently but may not rise on 1st attempt. PT-OP-T Assessment and Plan Start: 11/28/22 10:27 Freq: Status: Active Protocol: Document 02/25/23 14:29 NM (Rec: 02/25/23 15:42 NM [id number]) Physical Therapy Assessment Goals Tinetti Impairment Pt with score of 19 on Tinetti . Short Term Goal (STG) Pt with score of 22 on Tinetti . 12/29/22: Pt with score of 19 on Tinnetti. 02/04/23: STG Duration 01/02/23 Shelter Goal (LTG) Pt with score of 25 on Tinetti . 02/04/23: NOT MET LTG Duration 04/15/23 Strength Impairment Pt with LE strength grossly at 4-/5. Short Term Goal (STG) Pt with strength grossly at 4/ 5. 12/29/22: Pt with LE strength grossly from 4-/5 to 4/5. Progressing towards goal. 02/04/23: MET global LE strength 4/5 STG Duration 01/02/23 MET Shelter Goal (LTG) PT with LE strength grossly at 4+/5 02/04/23: NOT MET, pt at 4/5 BLE strength LTG Duration 04/15/23 HEP [employer] Goal (LTG) Pt independent with HEP. 02/04/23: NOT MET LTG Duration 04/15/23 Bed mobility Impairment Pt unable to roll in bed at home or transfer from supine to sit without assist from . Short Term Goal (STG) Pt able to roll and transfer from supine-sit without assist at bed at home. STG Duration 01/02/23 LTG Duration 04/15/23 Gait Impairment Pt able to walk 210 ft before need to sit secondary to fatigue. Pt able to walk 361 ft in 6 MWT. Short Term Goal (STG) Pt able to ambulate 500 ft before need to sit secondary to fatigue. 12/19/22: progressed 100ft c/ fww close SBA, 16, 75 ft c/ trekpoles Min A. 12/29/22: Pt able to walk 370ft before need to sit secondary to fatigue. Pt able to walk 370 ft during 6MWT with FWW. 01/09/23: Pt able to walk 385ft before need to sit. 02/04/23: NOT MET, pt able to ambulate with FWW 300 ft before needing a seated break STG Duration 01/02/23 progressing 12/19/22 [employer] Goal (LTG) Pt able to ambulate 1000ft before need to sit secondary to fatigue. 02/04/23: NOT MET LTG Duration 04/15/23 Assessment Summary Assessment Pt tolerated session well but was fatigued by end of session . Progressed resistance unilateral squat on leg press; pt demos improvement in limiting knee valgus but continues to not ext knees completely. Pt ready to progress B squat in next session. Pt attended session due to concerns about HEP; reviewed exercises. Pt requires mod cues during dorsiflexion raises to prevent rocking back at hips, able to perform just lifting toes afterward. Demos decreased ROM with heel raises due to limited ankle ROM; however, able to perform with limited rocking with mod cueing. Progressed pt to [place] green lvl 3 theraband during marches and side steps. Required decrease assistance today (SBA ) with sit to stand without UE use and forward reach; needs consistent cues and external target for anterior weight shift during ascent and to control descent, but able to perform without assist to rise . Pt and verbalize better understanding of HEP. Pt would benefit from skilled PT to address impairments in BLE strength, gait, balance in order to decrease fall risk, decrease caregiver burden, and improve CLOF. Physical Therapy Plan Frequency and Duration Frequency of Treatment 2x/Week Duration of treatment (weeks) 10 Plan of Care Start Date 11/28/22 Plan of Care End Date 04/15/23 Therapeutic Interventions Therapeutic Interventions Balance Training,Coordination Training,Gait Training,Home Exercise Program,Joint Mobilizations,Manual Therapy, Neuromuscular Re-education, Patient/Caregiver Education, Self-Care/Home Management,Soft Tissue Mobilization,Taping, Therapeutic Activities, Therapeutic Exercises Modalities Cold Pack/Ice Massage,Electric Stimulation,Hot Packs, Ultrasound Next Visit Focus/Plan Next Note Type Treatment Note Next Visit Plan Trial 4WW gait, address balance and cont LE strengthening. Progress leg press, hip abd strengthening. Add HS stretch Continue LE strengthening and trunk stabilization exercises, cont transfer/log roll edu. POC: Continue added resistance to LE PREs and progress into higher level balance challenges. possible PN depending on next appt
--- NOTE | 2023-02-27 08:15 | PT-OP ANOTE ---
Pt cancelled appt (<24 hrs) due to COVID +.
--- NOTE | 2023-03-27 08:58 | PT.OPDS ---
Current Diagnoses Other cerebral infarction due to occlusion or stenosis of small artery (02/25/23) Weakness (02/25/23) Visit Care Team Role Provider Type Richar Pettit MD Attending Provider Non-Staff Family Provider Primary Care Provider Referring Provider Specialty: Internal Medicine Pediatrics Address: [address] [place] [address], [id number] Email: [email or web address] Visit Number Visit Number [id number] Discharge Summary PT-OP-B Current Condition Start: 11/28/22 10:27 Freq: Status: Active Protocol: Document 11/28/22 10:27 AM (Rec: 11/28/22 13:00 AM [id number]) Current Condition History of Current Condition History of Current Condition 82-year-old male with history of rheumatoid arthritis presenting with his 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 Pt has had multiple CVA one in June and 1 in July. Pt has mild expressive apasia and cognitive impairment. Following inpatient, pt went to SNF for 4 days, though had a heart attack, ketoacidosis, and another small stroke. Pt has trouble swallowing, therefore has a GI tube. Pt had lost a lot of weight, though gaining back now. reports that he is much weaker and needs to build strength and balance. Pt's denies falls. Pt has a FWW at home. reports that he is able to walk 50ft with FWW. Pt does not have stairs. Treatment Goals Patient/Caregiver Goals To improve strength and balance Prior Functional Status Baseline Function- ADL's Independent Baseline Function- Mobility Independent Current Functional Impairments (Reported) Functional Limitations- ADL's Assist from with ADLs Functional Limitations- Mobility/Gait Needs assist with bed mobility . Pt's reports that he is able to walk, though fatigues quickly. She reports that he takes smaller steps with R LE and demonstrates flexed posture. Pt sleeps inclined on couch secondary to feeding tube precautions. PT-OP-C Subjective Start: 11/28/22 10:27 Freq: Status: Active Protocol: Document 02/25/23 14:29 NM (Rec: 02/25/23 15:42 NM [id number]) OP-PT Subjective Patient Comments Patient Comments Pt reports that he is fatigued today. attended session as she reports pt is having difficulty performing HEP and she is unsure that he can perform all exercises. PT-OP-D Balance Start: 11/28/22 10:27 Freq: Status: Active Protocol: Document 12/03/22 14:18 AM (Rec: 12/03/22 15:09 AM [id number]) Tinetti Balance Assessment Sitting Balance Sitting Balance Steady, safe Arising from Chair Ability to Arise Able, uses arms to help Attempts to Arise Able, requires >1 attempt Standing Balance Immediate Standing Balance Steady with support Standing Balance Narrow stance w/o support Nudged Response Steady Standing with Eyes Closed Steady Turning Step Pattern Turning 360 Degrees Discontinuous steps Stability Turning 360 Degrees Unsteady, grabs/staggers Sitting Down Sitting Down Uses arms or unsteady Gait and Step Initiation of Gait No hesitancy Right Foot Step Length Does pass stance foot Right Foot Step Height Does not clear floor Left Foot Step Length Does pass stance foot Left Foot Step Height Completely clears floor Step Description Step Symmetry Step length not equal Step Continuity Steps appear continuous Gait Description Path Description Straight Trunk Description No sway but posturing Walking Stance Heels together Scoring and Interpretation Tinetti Composite Score (points) 19 Interpretation of Scores At risk for falls (19-24) Tinetti Impairment Rating from Composite 20 to <40% Impaired (Score 17- Score 22) PT-OP-E Functional Tests Start: 11/28/22 10:27 Freq: Status: Active Protocol: Document 01/09/23 14:19 AM (Rec: 01/09/23 16:40 AM [id number]) Functional Tests 6 Minute Walk Test Distance 380 Device Used FWW PT-OP-G Mobility & Gait Start: 11/28/22 10:27 Freq: Status: Active Protocol: Document 11/28/22 10:27 AM (Rec: 11/28/22 17:39 AM [id number]) OP Mobility Evaluation Bed Mobility Rolling Pt able to roll independently from side to side on tx table, though reports that he is unable to roll side to side on bed at home. Supine to and from Sit Pt able to transfer from supine <-> sit on tx table, though slow and reports low back pain. Transfers Sit to Stand CGA for STS. Occasionally requires more than 1 attempt. Use of bryce UE. Bed to Chair Transfers Pt requires cueing to square up in front of surface that he is transfering to. Car Transfers Pt almost missed car seat with transfer from w/c to car seat . CGA required OP Gait Assessment Gait Gait Assistance Required: Contact Guard Assist Distance (Feet) 210 Assistive Devices Assistive Device Gait Belt,Front Wheeled Walker Orthotic/Prosthetic Devices or Brace: No Gait Deviations General Gait Pattern Decreased Stride Length,Flexed Trunk,Narrow Based Gait Factors Limiting Gait Function Factors Limiting Gait Function Decreased Activity Tolerance, Decreased Strength,Limited Range of Motion,Pain,Poor Balance Comments Gait Comments Pt demonstrated decreased stride length when fatigued. reports that he typically has a decreased R stride compared to L, though was able to demonstrate symmetry with gait today. PT-OP-J Posture/Palpation/Skin Start: 11/28/22 10:27 Freq: Status: Active Protocol: Document 11/28/22 10:27 AM (Rec: 11/28/22 17:39 AM [id number]) Posture Evaluation Position Standing Head/C-Spine Posture Forward Head L-Spine Posture Flexed Shoulder Posture (L) Forward,(R) Forward PT-OP-K Range of Motion Start: 11/28/22 10:27 Freq: Status: Active Protocol: Document 11/28/22 10:27 AM (Rec: 11/28/22 17:39 AM [id number]) Hip Goniometric Range of Motion Hip Right Passive Comments R hamstring moderately limited Left Passive Comments L hamstring with moderate limitations PT-OP-M Strength Start: 11/28/22 10:27 Freq: Status: Active Protocol: Document 11/28/22 10:27 AM (Rec: 11/28/22 17:39 AM [id number]) Hip Strength Hip Manual Muscle Testing Right Flexion (L2) 4- Good- Extension (S1) 4- Good- Abduction 4- Good- Adduction 4- Good- Left Flexion (L2) 4- Good- Extension (S1) 4- Good- Abduction 4- Good- Adduction 4- Good- Knee Strength Knee Manual Muscle Testing Right Flexion (S2) 4- Good- Extension (L3) 4- Good- Left Flexion (S2) 4- Good- Extension (L3) 4- Good- Ankle/Foot Strength Ankle and Foot Manual Muscle Testing Right Dorsiflexion (L4) 4- Good- Plantarflexion (S1) 4- Good- Left Dorsiflexion (L4) 4- Good- Plantarflexion (S1) 4- Good- PT-OP-T Assessment and Plan Start: 11/28/22 10:27 Freq: Status: Active Protocol: Document 03/27/23 08:56 NM (Rec: 03/16/23 09:00 NM [id number]) Physical Therapy Assessment Assessment Summary Assessment Pt has been seen for OP PT for balance, strengthening, and gait training s/p multiple CVAs since November 2022. He was last seen in clinic on 02/25. Pt was progressing slowly with BLE strengthening and static balance activities, in addition to training for safety during transfers and gait. Pt and had minimal compliance with HEP and were attending PT sessions 1x/wk. During last session on 02/25/23, PT and pt/ reviewed HEP and transfers. Pt canceled session with [facility] on 02/27/23 due to covid. Pt also went to the ED for a potential stroke on 02/26/23. On 03/13/23, pt's called to cancel remaining appointments as pt is now receiving home health. Pt is to be discharged from OP PT services due to change in medical status and pt request. Physical Therapy Plan Discharge Physical Therapy Discharge Reasons Patient Request Discharge Comments Discharge to due request of pt 's on 03/13/23. Pt now receiving home health due to change in medical status as well Next Visit Focus/Plan Next Visit Plan Discharge from OP PT services
== END 2023-04-01 10:50 | disposition home or self-care (01) ==
LOC: PHYS 14:30
PROVIDERS: Family Provider Pediatrics; PCP Pediatrics; Referring Provider Pediatrics; Visit Provider Pediatrics
DX: I63.81 Other cerebral infarction due to occlusion or stenosis of small artery (principal); R53.1 Weakness
CPT/HCPCS: 97110; 97112; 97116; 97162; 97530

== ENCOUNTER → 2023-02-26 13:11 | Outpatient (CLI) | payer MEDICARE, SELFPAY ==
[2022-07-10 17:40] VITALS: BMI 20.5
--- NOTE | 2023-02-26 13:12 | DI.RAD.S_ITS ---
PROCEDURE: XR CHEST 2V INDICATIONS: cough,shortness of breath TECHNIQUE: 2 views of the chest were acquired. COMPARISON: [facility], CR, XR CHEST 1V, 07/10/2022, 13:32. FINDINGS: Surgical changes and devices: None. Lungs and pleura: Moderate to large left pleural effusion with mid to basilar consolidation. Trace right pleural effusion. Right lung demonstrates mild basilar patchy consolidation. No pneumothorax bilaterally. Mediastinum: Mediastinal contours are normal. Heart size is normal. Bones and chest wall: No suspicious bony abnormalities. Soft tissues appear unremarkable. IMPRESSION: 1. Moderate to large left pleural effusion with mid to basilar consolidation. Findings may represent atelectasis, aspiration and/or pneumonia. Underlying malignancy is not excluded. 2. Right basilar patchy consolidation with trace pleural effusion which may represent sequela of aspiration and/or pneumonia. Recommend radiographic follow-up to document resolution and rule out an underlying neoplasm. Dictated by: Dayna Westbrook M.D. on 02/26/2023 at 19:08 Approved by: Dayna Westbrook M.D. on 02/26/2023 at 19:11
== END ==
LOC: RAD 13:12
PROVIDERS: Family Provider Pediatrics; PCP Student in an Organized Health Care Education/Training Program; Referring Provider Student in an Organized Health Care Education/Training Program; Visit Provider Student in an Organized Health Care Education/Training Program
DX: J90 Pleural effusion, not elsewhere classified (principal); R05.9 Cough, unspecified; R06.02 Shortness of breath
CPT/HCPCS: 71046

== ENCOUNTER 2023-02-26 19:43 | Inpatient (IN) | payer MEDICARE, SELFPAY ==
[2022-07-10 17:40] VITALS: BMI 20.5
[2023-02-26] VITALS (7 sets, daily range): BP systolic 121–133; BP diastolic 60–69; PULSE 81–97; RESP 16–21; TEMP 38.2; O2SAT 94–99; BMI 21.5
--- NOTE | 2023-02-26 19:50 | DI.CT.S_ITS ---
PROCEDURE: CT STROKE INDICATIONS: AMS TECHNIQUE: Noncontrast 4.5 mm thick angled axial sections acquired from the foramen magnum to the vertex, with coronal reformats. For radiation dose reduction, the following was used: automated exposure control, adjustment of mA and/or kV according to patient size. COMPARISON: [facility], CT, CT STROKE, 08/19/2022, 0:46. FINDINGS: Image quality: Diagnostic. CSF spaces: Basal cisterns are patent. No extra-axial fluid collections. The ventricles are symmetric in size and shape. Brain: Encephalomalacia within the right frontal lobe is increased compared to prior, this however appears more chronic and may represent a stroke in the interval from prior. Encephalomalacia within the left basal ganglia from prior infarct. No intracranial bleeds or masses. There is cerebral volume loss for age, with resultant ventricular and sulcal prominence. There are periventricular and deep white matter chronic small vessel ischemic changes. There is intracranial internal carotid artery atherosclerosis. Skull and face: Calvarium and visualized facial bones appear intact, without suspicious lesions. Sinuses: Visualized sinuses and mastoids are clear. IMPRESSION: 1. No acute intracranial hemorrhage. 2. Encephalomalacia in the right frontal lobes is increased compared to prior. This appears chronic and may represent a stroke in the interval from prior CT head. Acute infarct is not entirely excluded and MRI of the brain can be obtained for further evaluation. Findings discussed with the ER physician at 8:24 p.m. on 02/26/2023. This study fulfills neurological imaging criteria for inclusion or exclusion of acute stroke therapies based on available published neurological guidelines. Dictated by: Theodore Waite M.D. on 02/26/2023 at 20:19 Approved by: Theodore Waite M.D. on 02/26/2023 at 20:25
--- NOTE | 2023-02-26 19:51 | DI.CT.S_ITS ---
PROCEDURE: CT ANGIO HEAD AND NECK INDICATIONS: AMS, c/o stroke TECHNIQUE: After the administration of intravenous contrast, 1 mm thick sections acquired from the aortic arch through the [place]. 3-dimensional hnhyvnv-ugvmkfcnj-nhtowgcbsv (MIP) and/or volume rendering reformats were acquired of the central intracranial vasculature and neck separately. For radiation dose reduction, the following was used: automated exposure control, adjustment of mA and/or kV according to patient size. COMPARISON: [facility], CT, CT ANGIO HEAD AND NECK, 08/19/2022, 0:46. FINDINGS: Image quality: Diagnostic. BRAIN: Please refer to separately dictated CT of the head. HEAD CT ANGIOGRAPHY: Anterior circulation: Atherosclerosis of the intracranial internal carotid arteries with areas of mild stenosis. The flow within the paired anterior cerebral arteries is normal and symmetric. The flow within the middle cerebral arteries is normal and symmetric. The anterior communicating artery is seen. No aneurysms are seen. Posterior circulation: Visualized portions of the vertebral arteries demonstrate normal caliber, and join to form a normal appearing basilar artery. Flow within the posterior cerebral arteries is normal and symmetric. No aneurysms are seen. NECK CT ANGIOGRAPHY: Carotid system: The great vessels demonstrate a conventional anatomy as they arise from the aortic arch with atherosclerotic vascular calcifications. The origins of the common carotid arteries appear patent. The common carotid arteries demonstrate normal caliber and courses. Atherosclerotic vascular calcifications at the bifurcations bilaterally with mild stenosis. The internal carotid arteries demonstrate normal calibers and courses. Posterior circulation: The origins of the vertebral arteries both appear widely patent. The more superior extracranial portions of both vertebral arteries also demonstrate normal courses and calibers. They join to form a normal appearing basilar artery. Soft tissues: Visualized neck soft tissues demonstrate no suspicious abnormalities. Moderate to large left and small right pleural effusion. Left pleural effusion is increased compared to prior. Multiple prominent bilateral axillary lymph nodes. Bones: No suspicious bony lesions. Visualized cervical spine appears normally aligned. IMPRESSION: No significant intracranial arterial abnormality is seen. No significant abnormality is seen within the arteries of the neck. Moderate to large left and small right pleural effusions, increased on the left compared to prior. Prominent bilateral axillary lymph nodes are nonspecific, may be reactive or metastatic. Clinical correlation and follow-up is recommended. Any quantitative measurements of stenosis were performed using NASCET criteria. Dictated by: Theodore Waite M.D. on 02/26/2023 at 20:29 Approved by: Theodore Waite M.D. on 02/26/2023 at 20:35
[2023-02-26 20:13] LABS: Add Manual Diff / Slide Review NO; Basophils Absolute Auto 0 /uL (0-100); Basophils Percent Auto 0.4 % (0-2); Eosinophils Absolute Auto 200 /uL (0-450); Eosinophils Percent Auto 1.8 % (2-4); Hematocrit 34.9 % (41-53); Hemoglobin 11.6 g/dL (13.5-17.5); Lymphocytes Absolute Auto 300 /uL (1100-4500); Lymphocytes Percent Auto 2.4 % (25-40); Mean Corpuscular HGB Conc 33.3 % (30-36); Mean Corpuscular Hemoglobin 27.7 PG (26-34); Mean Corpuscular Volume 83.4 fL (80-100); Monocytes Absolute Auto 500 /uL (0-900); Monocytes Percent Auto 4.6 % (3-14); Neutrophils Absolute Auto 9700 /uL (1500-7000); Neutrophils Percent Auto 90.8 % (50-75); Platelet Count 215 X10^3/uL (150-400); Red Blood Cell Count 4.18 X10^6/uL (4.5-5.9); Red Cell Distribution Width 20.8 % (11.6-14.8); White Blood Cell Count 10.7 X10^3/uL (4.5-11.0)
[2023-02-26 20:21] LABS: INR 1.1 (0.9-1.3); Prothrombin Time 12.6 SECONDS (9.4-12.5)
[2023-02-26 20:23] LABS: PTT Partial Thromboplastin Tim 33 SECONDS (25.1-36.5)
[2023-02-26 20:25] LABS: Alanine Aminotransferase 43 IU/L (<50); Albumin 4.1 g/dL (3.5-5.0); Alkaline Phosphatase 109 U/L (38-126); BUN Creatinine Ratio 44.9 (6-22); Bilirubin Total 0.8 mg/dL (0.2-1.3); Blood Urea Nitrogen 53 mg/dL (9-20); Calcium 9.6 mg/dL (8.4-10.2); Carbon Dioxide 21 mmol/L (22-32); Chloride 99 mmol/L (98-107); Creatine Kinase 103 U/L (55-170); Estimated Glomerular Filt Rate > 60 mL/min (>60); Ethanol (ETOH) < 10 mg/dL; Globulin 4.3 g/dL (1.7-4.1); Glucose 313 mg/dL (80-110); HEMOLYSIS < 15 (0-50); Potassium 4.6 mmol/L (3.4-5.1); Sodium 131 mmol/L (137-145); Total Protein 8.4 g/dL (6.3-8.2)
[2023-02-26 20:41] LABS: Troponin I 0.147 ng/mL (0.01-0.034)
[2023-02-26 20:51] LABS: Anisocytosis 1+
[2023-02-26 21:09] LABS: COVID19 -Nasal RAPID POSITIVE (Negative)
--- NOTE | 2023-02-26 21:38 | PC.NURSE ---
WILTON WEAVER note: Patient's was yelling out for help. Staff came to assist. Wanted to ask the doctor a question. When we explained that the doctor was busy w/ other patients, and I could take the question, and ask him. Well how long is he going to be here? He takes Lantis at 10pm. And if I wait for you guys it'll be a bunch of bureaucratic bullshit, and he won't get his meds. I explained to her that heads up the staff doesn't like it when patients or patients family cusses at staff. Per hospital policy, that's just something to note. I will let the doctor and nurses know about the lantis. Patient's tried to explain that it's just so complicated and she needs us to know how serious this is. I let her know we do, but that we don't like that language. Let RN Julissa know about the medication.
[2023-02-26 22:49] LABS: Troponin I 0.157 ng/mL (0.01-0.034)
--- NOTE | 2023-02-26 22:49 | PC.NURSE ---
Patient took his nightly 14 units of Lantus per the . Dr. Nixon aware and okayed.
--- NOTE | 2023-02-26 22:52 | PC.NURSE ---
per who took it at bedside.
--- NOTE | 2023-02-26 23:53 | PC.NURSE ---
Patient up to bedside commode, he requires a standby two person assist to stand and transfer. Unable to support his own weight due to weakness. He is warm to the touch,. temp of 100.7F. Patient is currently mildly confused and requires some redirecting to follow commands. this was not the case upon earlier exam. Dr. Nixon made aware of these changes. Verbal order given for 975mg tylenol.
[2023-02-26 23:55] LABS: Appearance Urine UA CLEAR; Bilirubin Urine UA NEGATIVE (NEGATIVE); Color Urine UA YELLOW; Glucose Urine UA NEGATIVE (Negative); Ketones Urine UA NEGATIVE (NEGATIVE); Leukocyte Esterase Urine UA NEGATIVE (NEGATIVE); Nitrite Urine UA NEGATIVE (Negative); Occult Blood Urine UA 1+ (Negative); Protein Urine UA 1+ (Negative); Urobilinogen Urine UA 0.2 E.U./dL (0.2)
[2023-02-27] VITALS (12 sets, daily range): BP systolic 112–135; BP diastolic 63–78; PULSE 71–85; RESP 13–20; TEMP 36.5–38.7; O2SAT 93–100; BMI 21.7
[2023-02-27] LABS: UR Morphine/Opiate cutoff 300 Negative (Negative); Ur Creatinine Normal (Normal); Ur Specific Gravity Normal (Normal); Urine Amphetamines Negative (Negative); Urine Barbiturates Negative (Negative); Urine Benzodiazepines Negative (Negative); Urine Cocaine Negative (Negative); Urine MDMA Negative (Negative); Urine Methadone Negative (Negative); Urine Methamphetamines Negative (Negative); Urine Oxycodone Negative (Negative); Urine Phencyclidine Negative (Negative); Urine Tetrahydrocannabinol Negative (Negative); Urine Tricyclic Antidepressant Negative (Negative); Urine pH Normal (Normal)
[2023-02-27 00:07] LABS: Bacteria Urine Occasional (0-1); Culture Indicated Urine Cult Not Indicated; Granular Casts Urine 0-1/LPF; Hyaline Casts Urine 0-1/LPF; RBC Urine 0-1/HPF (0-5/HPF); Squamous Epithelial Cell Urine 0-1 /HPF (0-5/HPF); Transitional Epi Cells Urine 0-1/HPF (0-5/HPF); WBC Urine None Seen (0-5/HPF)
[2023-02-27] MEDS: ACETAMINOPHEN 325 MG TABLET 975 MG PO (00:12)
--- NOTE | 2023-02-27 00:19 | ED.NEUROSD ---
HPI - Neuro Symptoms/Deficit General Chief Complaint: Neuro Symptoms/Deficit Stated Complaint: concerns of stroke Time Seen by Provider: 02/26/23 19:50 Source: patient and family Mode of arrival: Wheelchair History of Present Illness HPI Narrative: 83-year-old male who presents with transient aphasia and urinary incontinence occurring just prior to arrival. Patient was reportedly sitting at the time and briefly unresponsive towards spouse. Patient has a history of NSTEMI, diabetes, CVA and also complaining of cough, congestion, generalized malaise and weakness for the last several weeks. On Anticoagulants: Yes Related Data Home Medications Medication Instructions Recorded Confirmed hydroxychloroquine 200 mg tablet 200 mg PO BID 04/04/20 03/19/23 insulin aspart U-100 100 unit/mL See Rx Instructions .Route .COMPLEX 04/04/20 03/19/23 (3 mL) subcutaneous pen (Novolog FlexPen U-100 Insulin aspart) insulin glargine 100 unit/mL (3 14 unit SUBCUT BEDTIME 04/04/20 03/19/23 mL) subcutaneous pen (Lantus Solostar U-100 Insulin) aspirin 81 mg chewable tablet 1 tab PO DAILY 10/03/22 03/19/23 clopidogrel 75 mg tablet 75 mg PO DAILY 10/03/22 03/19/23 metoprolol tartrate 50 mg tablet 50 mg PO BID 10/03/22 03/19/23 rosuvastatin 5 mg tablet 5 mg PO DAILY 10/03/22 03/19/23 colchicine 0.6 mg capsule mg PO reduce fluid surrounding 03/19/23 03/19/23 heart Allergies Allergy/AdvReac Type Severity Reaction Status Date / Time shellfish derived AdvReac Nausea Verified 03/19/23 10:29 Review of Systems Review of Systems Narrative: See HPI for pertinent positives otherwise review of systems negative Hematologic/Lymphatic On Anticoagulants: Yes Patient History Medical History (Updated 02/27/23 @ 01:14 by Fara Pulido RN) Non-ST elevation myocardial infarction (NSTEMI) Diabetes mellitus, labile Thalamic stroke Rheumatoid arthritis Anemia Cataract Diabetes History of colon polyps COPD (chronic obstructive pulmonary disease) Ingrowing toenail of left foot Surgical History History of cataract surgery Total knee replacement status Social History household members: spouse Smoking Status: Never smoker alcohol intake: former Smoking Status: Never smoker alcohol intake frequency: other Substance Use Type: does not use Exam Narrative Exam Narrative: General: Awake, alert, in no apparent distress HEENT: Normocephalic, atraumatic, pupils equal and reactive to light, oropharynx clear, oral mucosa moist Neck: Supple Cardiovascular: 2+ radial bilateral, regular rhythm/rate Pulmonary: Regular respirations, no respiratory distress Abdominal: Soft, nontender, nondistended : Normal external genitalia Back: Nontender, normal motion Extremities: No tenderness of bilateral upper/lower extremities Skin: Warm, dry, intact, no rashes Neuro: No new focal neurological deficits, moving all 4 extremities equally, normal speech Psych: Normal mood, normal affect Initial Vital Signs Initial Vital Signs: Vital Signs Temperature 100.8 F H 02/26/23 19:44 Pulse Rate 97 H 02/26/23 19:44 Respiratory Rate 18 02/26/23 19:44 Blood Pressure 127/64 02/26/23 19:44 Pulse Oximetry 94 02/26/23 19:44 Oxygen Delivery Method Room Air 02/26/23 19:44 Course Course Course Narrative: See MDM Orders Ordered: Discontinued Medications Acetaminophen (Acetaminophen 325 Mg Tablet) 975 mg PO NOW ONE Stop: 02/26/23 23:57 Last Admin: 02/27/23 00:12 Dose: 975 mg Documented By: GLORIA Acetaminophen (Acetaminophen 325 Mg Tablet) 650 mg PO Q6H PRN PRN Reason: Fever/Mild Pain (1-3) Last Admin: 02/28/23 04:52 Dose: 650 mg Documented By: SHAD Aspirin (Aspirin 81 Mg Chew Tab) 81 mg PO DAILY [facility] Last Admin: 03/02/23 08:07 Dose: 81 mg Documented By: Admin: 03/01/23 08:45 Dose: 81 mg Documented By: Admin: 02/28/23 09:00 Dose: 81 mg Documented By: Admin: 02/27/23 08:25 Dose: 81 mg Documented By: HAROON Atorvastatin Calcium (Atorvastatin 20 Mg Tablet) 10 mg PO DAILY [facility] Last Admin: 02/27/23 08:25 Dose: 10 mg Documented By: HAROON Atorvastatin Calcium (Atorvastatin 20 Mg Tablet) 10 mg PO BEDTIME [facility] Last Admin: 03/01/23 21:22 Dose: 10 mg Documented By: Admin: 02/28/23 21:10 Dose: 10 mg Documented By: Admin: 02/27/23 20:57 Dose: 10 mg Documented By: SHAD Clopidogrel Bisulfate (Clopidogrel 75 Mg Tablet) 75 mg PO DAILY [facility] Last Admin: 03/02/23 08:07 Dose: 75 mg Documented By: Admin: 03/01/23 08:45 Dose: 75 mg Documented By: Admin: 02/28/23 09:00 Dose: 75 mg Documented By: Admin: 02/27/23 08:25 Dose: 75 mg Documented By: HAROON Enoxaparin Sodium (Enoxaparin 40 Mg/0.4 Ml Syringe) 40 mg SUBCUT DAILY [facility] Last Admin: 03/02/23 08:07 Dose: 40 mg Documented By: Admin: 03/01/23 08:45 Dose: 40 mg Documented By: Admin: 02/28/23 09:00 Dose: 40 mg Documented By: Admin: 02/27/23 08:26 Dose: 40 mg Documented By: HAROON Dextrose (D10w) 100 mls @ 1,200 mls/hr IV PRN PRN PRN Reason: Hypoglycemia Sodium Chloride (Normal Saline 0.9%) 1,000 mls @ 100 mls/hr IV CONT [facility] Last Admin: 03/02/23 05:28 Dose: 100 mls/hr Documented By: Infusion: 03/02/23 05:28 Dose: Infused Documented By: Admin: 03/01/23 19:51 Dose: 100 mls/hr Documented By: Infusion: 03/01/23 18:47 Dose: Infused Documented By: Admin: 03/01/23 08:47 Dose: 100 mls/hr Documented By: Infusion: 03/01/23 08:47 Dose: Infused Documented By: Admin: 02/28/23 23:35 Dose: 100 mls/hr Documented By: Infusion: 02/28/23 23:35 Dose: Infused Documented By: Admin: 02/28/23 14:06 Dose: 100 mls/hr Documented By: Infusion: 02/28/23 13:12 Dose: Infused Documented By: Admin: 02/28/23 03:12 Dose: 100 mls/hr Documented By: Infusion: 02/28/23 03:12 Dose: Infused Documented By: Admin: 02/27/23 17:30 Dose: 100 mls/hr Documented By: Infusion: 02/27/23 16:39 Dose: Infused Documented By: Admin: 02/27/23 02:04 Dose: 100 mls/hr Documented By: KATHLEEN Remdesivir 200 mg/ Sodium (Chloride) 250 mls @ 250 mls/hr IV NOW ONE Stop: 02/27/23 02:15 Last Admin: 02/27/23 02:05 Dose: 250 mls/hr Documented By: KATHLEEN Remdesivir 100 mg/ Sodium (Chloride) 250 mls @ 250 mls/hr IV DAILY ASTRID Stop: 03/02/23 09:59 Remdesivir 100 mg/ Sodium (Chloride) 250 mls @ 250 mls/hr IV DAILY ASTRID Stop: 03/03/23 09:59 Last Admin: 03/02/23 10:30 Dose: 250 mls/hr Documented By: Infusion: 03/01/23 10:00 Dose: Infused Documented By: Admin: 03/01/23 08:45 Dose: 250 mls/hr Documented By: Infusion: 02/28/23 14:06 Dose: Infused Documented By: Admin: 02/28/23 09:34 Dose: 250 mls/hr Documented By: SADIA Insulin Glargine (Insulin Glargine 100 Unit/Ml 3ml Pen) 14 unit SUBCUT BEDTIME ASTRID Last Admin: 03/01/23 21:20 Dose: 14 unit Documented By: Co-signed By: YOVANA Admin: 02/28/23 21:10 Dose: 14 unit Documented By: LINETTE Co-signed By: RENETTA Admin: 02/27/23 20:53 Dose: 14 unit Documented By: SHAD Co-signed By: LINETTE Insulin Human Lispro (Insulin Lispro 100 Unit/Ml 3ml Vial) 0 unit SUBCUT ACHS ASTRID; Protocol Last Admin: 03/02/23 12:11 Dose: 3 unit Documented By: CAPO Co-signed By: VOLODYMYR Admin: 03/02/23 08:09 Dose: 4 unit Documented By: ACPO Co-signed By: NAPOLEON Admin: 03/01/23 21:20 Dose: 1 unit Documented By: Co-signed By: YOVANA Admin: 03/01/23 17:03 Dose: 2 unit Documented By: CAPO Co-signed By: (2) Admin: 03/01/23 11:47 Dose: 1 unit Documented By: CAPO Co-signed By: MS(2) Admin: 03/01/23 08:43 Dose: 1 unit Documented By: CAPO Co-signed By: AMPARO Admin: 02/28/23 21:12 Dose: 2 unit Documented By: LINETTE Co-signed By: RENETTA Admin: 02/28/23 17:29 Dose: 5 unit Documented By: RENETTA Co-signed By: (2) Admin: 02/28/23 12:28 Dose: 4 unit Documented By: SADIA Co-signed By: (2) Admin: 02/28/23 09:00 Dose: 5 unit Documented By: SADIA Co-signed By: JEET Admin: 02/27/23 21:34 Dose: Not Given Documented By: Admin: 02/27/23 17:06 Dose: 4 unit Documented By: HAROON Co-signed By: YENY Admin: 02/27/23 11:54 Dose: Not Given Documented By: Admin: 02/27/23 08:24 Dose: 2 unit Documented By: HAROON Co-signed By: BARBARA Insulin Human Lispro (Insulin Lispro 100 Unit/Ml 3ml Vial) 9 unit SUBCUT NOW ONE Stop: 02/27/23 11:57 Last Admin: 02/27/23 12:02 Dose: 9 unit Documented By: HAROON Co-signed By: YENY Insulin Human Lispro (Insulin Lispro 100 Unit/Ml 3ml Vial) 6 unit SUBCUT AC [facility] Last Admin: 02/27/23 17:05 Dose: 6 unit Documented By: HAROON Co-signed By: YENY Insulin Human Lispro (Insulin Lispro 100 Unit/Ml 3ml Vial) 6 unit SUBCUT AC [facility] Last Admin: 03/02/23 12:10 Dose: 6 unit Documented By: CAPO Co-signed By: VOLODYMYR Admin: 03/02/23 08:09 Dose: 6 unit Documented By: CAPO Co-signed By: NAPOLEON Admin: 03/01/23 17:03 Dose: 6 unit Documented By: CAPO Co-signed By: MS(2) Admin: 03/01/23 11:46 Dose: 6 unit Documented By: CAPO Co-signed By: MS(2) Admin: 03/01/23 08:42 Dose: 6 unit Documented By: SB Co-signed By: AMPARO Admin: 02/28/23 17:29 Dose: 6 unit Documented By: RENETTA Co-signed By: [email or web address]) Admin: 02/28/23 12:29 Dose: 6 unit Documented By: SADIA Co-signed By: [email or web address]) Admin: 02/28/23 09:01 Dose: 6 unit Documented By: SADIA Co-signed By: JEET Metoprolol Tartrate (Metoprolol Ir 50 Mg Tablet) 50 mg PO BID ASTRID Last Admin: 03/02/23 08:07 Dose: 50 mg Documented By: Admin: 03/01/23 21:22 Dose: 50 mg Documented By: Admin: 03/01/23 08:46 Dose: 50 mg Documented By: Admin: 02/28/23 21:10 Dose: 50 mg Documented By: Admin: 02/28/23 09:00 Dose: 50 mg Documented By: Admin: 02/27/23 20:57 Dose: 50 mg Documented By: Admin: 02/27/23 08:25 Dose: 50 mg Documented By: HAROON Morphine Sulfate (Morphine 2 Mg/Ml Inj) 2 mg IV Q5MIN PRN PRN Reason: Chest Pain Naloxone HCl (Naloxone 0.4 Mg/Ml Vial) 0.2 mg IV Q2MIN PRN PRN Reason: Opiate Reversal Nitroglycerin (Nitroglycerin 0.4 Mg Sl Tab) 0.4 mg SL [id number] PRN PRN Reason: Chest Pain Vital Signs Vital signs: Vital Signs - 8 hr 02/26/23 19:44 02/26/23 20:46 02/26/23 21:00 Temperature 100.8 F H Pulse Rate 97 H 81 82 Respiratory Rate 18 18 21 Blood Pressure 127/64 132/62 128/60 Pulse Oximetry 94 99 95 Oxygen Delivery Method Room Air Room Air Room Air 02/26/23 21:30 02/26/23 22:00 02/26/23 22:30 Temperature Pulse Rate 82 86 83 Respiratory Rate 18 16 19 Blood Pressure 128/62 121/66 133/69 Pulse Oximetry 97 96 96 Oxygen Delivery Method Room Air Room Air Room Air 02/26/23 23:00 02/27/23 00:12 Temperature 101.7 F H Pulse Rate 84 Respiratory Rate 17 Blood Pressure 128/67 Pulse Oximetry 95 Oxygen Delivery Method Room Air MDM - Neuro Symptoms/Deficit Differential Diagnosis Differential diagnosis: Likely subarachnoid hemorrhage, cerebrovascular accident and transient cerebral ischemia Lab Data Attestation: I reviewed the patient's lab results. 02/28/23 05:00 02/28/23 05:00 Labs: Lab Results 02/26/23 02/26/23 02/26/23 Range/Units 19:58 20:35 22:15 WBC 10.7 (4.5-11.0) X10^3/uL RBC 4.18 L (4.5-5.9) X10^6/uL Hgb 11.6 L (13.5-17.5) g/dL Hct 34.9 L (41-53) % MCV 83.4 (80-100) fL MCH 27.7 (26-34) PG MCHC 33.3 (30-36) % RDW 20.8 H (11.6-14.8) % Plt Count 215 (150-400) X10^3/uL Neut % (Auto) 90.8 H (50-75) % Lymph % (Auto) 2.4 L (25-40) % [place] % (Auto) 4.6 (3-14) % Eos % (Auto) 1.8 L (2-4) % Baso % (Auto) 0.4 (0-2) % Neut # (Auto) 9700 H (5585-8424) /uL Lymph # (Auto) 300 L (9316-5054) /uL [place] # (Auto) 500 (0-900) /uL Eos # (Auto) 200 (0-450) /uL Baso # (Auto) 0 (0-100) /uL RBC Morphology See below Anisocytosis 1+ H PT 12.6 H (9.4-12.5) SECONDS INR 1.1 (0.9-1.3) APTT 33 (25.1-36.5) SECONDS Sodium 131 L (137-145) mmol/L Potassium 4.6 (3.4-5.1) mmol/L Chloride 99 (98-107) mmol/L Carbon Dioxide 21 L (22-32) mmol/L BUN 53 H (9-20) mg/dL Creatinine 1.18 (0.66-1.25) mg/dL Estimated GFR > 60 (>60) mL/min BUN/Creatinine Ratio 44.9 H (6-22) Glucose 313 H (80-110) mg/dL Calcium 9.6 (8.4-10.2) mg/dL Total Bilirubin 0.8 (0.2-1.3) mg/dL AST 46 (17-59) IU/L ALT 43 (<50) IU/L Alkaline Phosphatase 109 (38-126) U/L Total Creatine Kinase 103 (55-170) U/L Troponin I 0.147 H* 0.157 H* (0.01-0.034) ng/mL Total Protein 8.4 H (6.3-8.2) g/dL Albumin 4.1 (3.5-5.0) g/dL Globulin 4.3 H (1.7-4.1) g/dL Albumin/Globulin Ratio 1.0 (1.0-2.8) Urine Color Urine Appearance Urine pH (4.5-8.0) Ur Specific [place] (1.000-1.035) Urine Protein (Negative) Urine Glucose (UA) (Negative) g/dL Urine Ketones (NEGATIVE) Urine Occult Blood (Negative) Urine Nitrate (Negative) Urine Bilirubin (NEGATIVE) Urine Urobilinogen (0.2) E.U./dL Ur Leukocyte Esterase (NEGATIVE) Urine RBC (0-5/HPF) Urine WBC (0-5/HPF) Ur Squamous Epith Cells (0-5/HPF) Ur Transition Epith Cell (0-5/HPF) Urine Bacteria (None) Hyaline Casts (None) Granular Casts (None) Ur Culture Indicated? U Opiates 300ng/mL cut (Negative) Ur Oxycodone Screen (Negative) Urine Methadone Screen (Negative) Ur Barbiturates Screen (Negative) U Tricyclic Antidepress (Negative) Ur Phencyclidine Scrn (Negative) Ur Amphetamines Screen (Negative) U Methamphetamines Scrn (Negative) Ur MDMA Scrn (Ecstasy) (Negative) U Benzodiazepines Scrn (Negative) Urine Cocaine Screen (Negative) U Marijuana (THC) Screen (Negative) Urine Specific [place] (Normal) Ethyl Alcohol < 10 ( - 10) mg/dL Ur Creatinine (Normal) SARS-CoV-2 (PCR) Positive H (Negative) 02/26/23 02/26/23 Range/Units 22:47 22:47 WBC (4.5-11.0) X10^3/uL RBC (4.5-5.9) X10^6/uL Hgb (13.5-17.5) g/dL Hct (41-53) % MCV (80-100) fL MCH (26-34) PG MCHC (30-36) % RDW (11.6-14.8) % Plt Count (150-400) X10^3/uL Neut % (Auto) (50-75) % Lymph % (Auto) (25-40) % [place] % (Auto) (3-14) % Eos % (Auto) (2-4) % Baso % (Auto) (0-2) % Neut # (Auto) (8368-0733) /uL Lymph # (Auto) (2700-1300) /uL [place] # (Auto) (0-900) /uL Eos # (Auto) (0-450) /uL Baso # (Auto) (0-100) /uL RBC Morphology Anisocytosis PT (9.4-12.5) SECONDS INR (0.9-1.3) APTT (25.1-36.5) SECONDS Sodium (137-145) mmol/L Potassium (3.4-5.1) mmol/L Chloride (98-107) mmol/L Carbon Dioxide (22-32) mmol/L BUN (9-20) mg/dL Creatinine (0.66-1.25) mg/dL Estimated GFR (>60) mL/min BUN/Creatinine Ratio (6-22) Glucose (80-110) mg/dL Calcium (8.4-10.2) mg/dL Total Bilirubin (0.2-1.3) mg/dL AST (17-59) IU/L ALT (<50) IU/L Alkaline Phosphatase (38-126) U/L Total Creatine Kinase (55-170) U/L Troponin I (0.01-0.034) ng/mL Total Protein (6.3-8.2) g/dL Albumin (3.5-5.0) g/dL Globulin (1.7-4.1) g/dL Albumin/Globulin Ratio (1.0-2.8) Urine Color Yellow Urine Appearance Clear Urine pH 5.0 Normal (4.5-8.0) Ur Specific [place] 1.020 (1.000-1.035) Urine Protein 1+ H (Negative) Urine Glucose (UA) Negative (Negative) g/dL Urine Ketones Negative (NEGATIVE) Urine Occult Blood 1+ H (Negative) Urine Nitrate Negative (Negative) Urine Bilirubin Negative (NEGATIVE) Urine Urobilinogen 0.2 (0.2) E.U./dL Ur Leukocyte Esterase Negative (NEGATIVE) Urine RBC 0-1/hpf (0-5/HPF) Urine WBC None seen (0-5/HPF) Ur Squamous Epith Cells 0-1 /hpf (0-5/HPF) Ur Transition Epith Cell 0-1/hpf (0-5/HPF) Urine Bacteria Occasional (0-1) (None) Hyaline Casts 0-1/lpf (None) Granular Casts 0-1/lpf (None) Ur Culture Indicated? Cult not indicated U Opiates 300ng/mL cut Negative (Negative) Ur Oxycodone Screen Negative (Negative) Urine Methadone Screen Negative (Negative) Ur Barbiturates Screen Negative (Negative) U Tricyclic Antidepress Negative (Negative) Ur Phencyclidine Scrn Negative (Negative) Ur Amphetamines Screen Negative (Negative) U Methamphetamines Scrn Negative (Negative) Ur MDMA Scrn (Ecstasy) Negative (Negative) U Benzodiazepines Scrn Negative (Negative) Urine Cocaine Screen Negative (Negative) U Marijuana (THC) Screen Negative (Negative) Urine Specific [place] Normal (Normal) Ethyl Alcohol ( - 10) mg/dL Ur Creatinine Normal (Normal) SARS-CoV-2 (PCR) (Negative) Point of Care Testing Glucose POC 275 Urine Dip Bedside Urine Glucose Negative Bedside Urine Bilirubin - Negative Bedside Urine Ketone - Negative Urine Specific [place] 1.015 Bedside Urine Occult Blood + Bedside Urine pH 6.0 Bedside Urine Protein + 30 Bedside Urine Urobilinogen - Negative Bedside Urine Nitrite - Negative Bedside Urine Leukocytes - Negative Esterase ECG Data Attestation: I personally reviewed and interpreted this ECG as follows: Interpretation: NSR at 84 bpm, LAD, Septal infarct indeterminant age. Abnormal ECG MDM Narrative Medical decision making narrative: Patient presents with symptoms suggestive of TIA. Imaging is not suggestive of acute disease, intercerebral hemorrhage mass or midline shift. EKG is not suggestive of ACS but troponin is elevated consistent with NSTEMI. Patient is not a candidate for interventional cardiology and discussed case with Cardiology. COVID-19 positive mostly cause of patient's current fatigue and general malaise. Patient stable but warrants admission for further evaluation and management. Patient stable at time of transfer to the floor here at [facility]. Discharge Plan Departure Patient Disposition: Admitted as Observation Clinical Impression: COVID-19, NSTEMI (non-ST elevated myocardial infarction), TIA (transient ischemic attack), Weakness generalized Admit Date/Time: 02/27/23 00:18 Admit Provider: Jeramy Maier
--- NOTE | 2023-02-27 01:16 | DI.ECHO.S_ITS ---
[facility]---------+ [facility] +---------+ : : [address] : : : : [id number] : : : : Phone: [phone] Echocardiogram Report + + :Name: SANAZ MENG Study Date: 02/27/2023 Height: 70 in : :[facility] ReadingLocation: Weight: 150 lb : : Gender: Male BSA: 1.8 m2 : :: 1940 Age: 83 yrs BP: 132/77 mmHg: :Reason For Study: CVA : : Performed By: Jaz Dawn : :Referring: SYDNEY KING R : + + Interpretation Summary The ejection fraction is estimated to be 60-65%. Grade II diastolic dysfunction. The right ventricular systolic pressure is estimated to be at least 40 mmHg based on an estimated right atrial pressure of 15 mm Hg. No significant valvular abnormality. There is a moderate pericardial effusion noted. No evidence of tamponade, but this could be pre-tamponade in the right clinical setting. There is a large left-sided pleural effusion. Procedure: A two-dimensional transthoracic echocardiogram with color flow and Doppler was performed. The study quality was technically adequate. Comparison is made with the echocardiogram of 07-11-22. The heart rate ranged between 68-72 bpm during the study. Left Ventricle: The left ventricle is normal in size and wall thickness. The ejection fraction is estimated to be 60-65%. There are no obvious focal wall motion abnormalities noted but poor endocardial definition reduces the sensitivity for the detection of such. Grade II diastolic dysfunction. Right Ventricle: The right ventricle is grossly normal size. The right ventricular systolic function is normal. Atria: The left atrium is mildly dilated. Right atrial size is normal. The interatrial septum grossly appears intact with no obvious evidence for an atrial septal defect. Mitral Valve: The mitral valve is normal in structure and function. There is no mitral regurgitation noted. Aortic Valve: The aortic valve opens well. There is no aortic valve stenosis. No aortic regurgitation is present. Tricuspid Valve: The tricuspid valve is normal in structure and function. There is a trace or physiologic amount of tricuspid regurgitation. The right ventricular systolic pressure is estimated to be at least 40 mmHg based on an estimated right atrial pressure of 15 mm Hg. Pulmonic Valve: The pulmonic valve is normal in structure and function. There is no pulmonic valvular regurgitation. Great Vessels: The aortic root is normal size. The ascending aorta is at the upper limits of normal in size. The aortic arch is normal in size. The IVC is dilated (diameter is greater than 2.1 cm) and it collapses less than 50% with a sniff. This suggests a high right atrial pressure of 15 mm Hg. Pericardium/ Pleura There is a moderate pericardial effusion noted. There is a large left-sided pleural effusion. MMode/2D Measurements & Calculations LVIDd: 5.3 cm LVOT diam: 2.1 cm LVIDs: 2.1 cm Ao root diam: 3.6 cm FS: 59.6 % asc Aorta Diam: 3.6 cm IVSd: 0.76 cm Ao Arch Diam (Prox Trans): 2.7 cm LVPWd: 0.70 cm LV espino. diameter/BSA (cm/m^2): 2.9 LV sys. diameter/BSA (cm/m^2): 1.2 LA A2 area: 21.7 cm2 RA long axis: 4.7 cm LA A4 area: 26.3 cm2 RA area: 18.1 cm2 LA length (vol): 6.4 cm RA vol: 59.0 ml LA vol: 76.2 ml RA : 31.9 ml/m2 LA vol index: 41.3 ml/m2 IVC diam: 2.2 cm RVD1 (basal): 3.6 cm Doppler Measurements & Calculations Ao V2 max: 126.6 cm/sec LVOT Max Vazquez: 106.7 cm/sec Ao V2 mean: 86.8 cm/sec LV V1 max P.6 mmHg Ao max P.4 mmHg LV V1 VTI: 23.6 cm Ao mean P.4 mmHg KYLE(I,D): 3.1 cm2 Ao V2 VTI: 27.5 cm KYLE(V,D): 3.0 cm2 sev ratio: 0.86 KYLE indexed to BSA (cm^2/m^2): 1.7 MV E max vazquez: 107.7 cm/sec TR max vazquez: 252.7 cm/sec MV A max vazquez: 115.9 cm/sec TR max P.5 mmHg MV E/A: 0.93 PA V2 max: 68.8 cm/sec Med Peak E' Vazquez: 5.3 cm/sec PA V2 mean: 50.0 cm/sec E/E' med: 20.2 PA mean P.1 mmHg Lat Peak E' Vazquez: 6.4 cm/sec PA pr(Accel): -10.1 mmHg E/E' lat: 16.8 E/e' average: 18.5 MV dec time: 0.21 sec SVLVOT): 84.0 ml Reading Physician:GLENN
[2023-02-27] MEDS: SODIUM CHLORIDE 0.9% 1,000 ML 100 ML IV ×2 (02:04→17:30)
[2023-02-27] MEDS: REMDESIVIR 200 MG in SODIUM CHLORIDE 0.9% 250 ML 250 MG IV (02:05)
[2023-02-27 05:52] LABS: Troponin I 0.202 ng/mL (0.01-0.034)
[2023-02-27] MEDS: INSULIN LISPRO 100 UNIT/ML 3ML VIAL SUBCUT ×2 (08:24→17:06)
[2023-02-27] MEDS: ATORVASTATIN 20 MG TABLET 10 MG PO ×2 (08:25→20:57)
[2023-02-27] MEDS: METOPROLOL IR 50 MG TABLET PO ×2 (08:25→20:57)
[2023-02-27] MEDS: CLOPIDOGREL 75 MG TABLET PO (08:25)
[2023-02-27] MEDS: ASPIRIN 81 MG CHEW TAB PO (08:25)
[2023-02-27] MEDS: ENOXAPARIN 40 MG/0.4 ML SYRINGE SUBCUT (08:26)
--- NOTE | 2023-02-27 11:25 | PT.IIE ---
Surgical History (Last Reviewed 08/19/22 @ 02:15 by Pancho Villa DO) History of cataract surgery Total knee replacement status Medical History (Last Updated 12/02/22 @ 10:20 by Asha Figueroa MD) Anemia Cataract COPD (chronic obstructive pulmonary disease) Diabetes Diabetes mellitus, labile History of colon polyps Ingrowing toenail of left foot Non-ST elevation myocardial infarction (NSTEMI) Rheumatoid arthritis Thalamic stroke Physical Therapy Inpatient Evaluation/Re-Eval M1 PT/OT-IP Prior Functional Status Start: 02/27/23 13:08 Freq: NEEDED Status: Active Protocol: Document 02/27/23 11:25 AB (Rec: 02/27/23 13:25 AB [id number]) Medical Review Prior Functional Status Medical History Reviewed Yes Communication able to make needs known but is soft spoken Mobility and Gait pt stated that he was independent with all mobilities and ambulation without AD but occasionally uses his electric w/c indoors but mostly outdoors. Social History Household Members spouse Living Arrangements House Number of Floors (Floors) Two Floors Number of Stairs To Enter/Railing? pt stays on the main level of the house no steps to enter Home Environment Standard Height Toilet,Tub/ Shower Home Equipment Front Wheel Walker,Power Wheelchair/Scooter,Raised Toilet Seat w/Armrests,Shower Seat with Backrest,Hand Held Shower,Grab Bars In Shower M2 PT-IP Current Condition Start: 02/27/23 13:08 Freq: NEEDED Status: Active Protocol: Document 02/27/23 11:25 AB (Rec: 02/27/23 13:25 AB [id number]) Physical Therapy Current Condition Current Condition Evaluation Date 02/27/23 Treatment Diagnosis Covid; difficulty in walking Onset Date 02/27/23 M3 PT-IP Subjective Start: 02/27/23 13:08 Freq: NEEDED Status: Active Protocol: Document 02/27/23 11:25 AB (Rec: 02/27/23 13:25 AB [id number]) Subjective Physical Therapy Visit Type Type Initial Evaluation Visit Start Time 11:25 Visit Stop Time 12:10 Total Visit Minutes 45 Notes PT eval received and EMR reviewed. pt with troponin trending up: from .147 to .202 . Talked to nurse and stated that the doctor thinks it demand ischemia due to COVID and not [place]. doctor cleared pt to do PT. Number of GREEN MARKETING SPECIALIST Visits 0 Physical Therapy Visit Comments Patient Comments agreeable to do PT Therapy Pain Assessment Pain Present Pain Present Denied Pain M4 PT-IP Mobility and Gait Start: 02/27/23 13:08 Freq: NEEDED Status: Active Protocol: Document 02/27/23 11:25 AB (Rec: 02/27/23 13:25 AB [id number]) PT-Bed Mobility Assessment Supine to Sit Supine to Sit Standby Assistance,Head of Bed Elevated PT-Transfer Assessment Sit to and From Stand Sit to and from Stand Minimal Assistance,1 Person Assistance,Use of Upper Extremities Equipment Transfer Assistive Device Gait Belt,Front Wheeled Walker Orthotic/Prosthetic Devices or Brace: No Transfers Transfer Destination Chair Transfer Technique ambulated Transfer Ability Level of Assist Minimal Assistance,1 Person Assistance,Use of Upper Extremities Comments Mobility Comments pt supine in bed and agreeable to do PT. obtained PLOF and home set up. BP: 135/69 O2 sat at RA: 93-96%. pt completed supine to sit SBA but requiring increase time to complete task. pt able to sit on EOB SBA. completed sit to stand min A and ambulated towards the chair using FWW min to mod A and cues. pt required mod A for maneuvering FWW. pt sat on the chair and refused further ambulation and just wants to rest. positioned pt on the chair. set up for lunch. call light and table positioned. Left pt with nurse in room. Gait Assessment Gait Gait Assistance Required: Minimum Assistance,Moderate Assistance,1 Person Assist Distance (Feet) 12 Able to Maintain Weight Bearing Status Yes During Gait Assistive Devices Assistive Device Gait Belt,Front Wheeled Walker Orthotic/Prosthetic Devices or Brace: No Gait Deviations General Gait Pattern Decreased Stride Length, Decreased Feet Clearance,Step- to Gait Factors Limiting Gait Function Factors Limiting Gait Function Decreased Activity Tolerance, Decreased Strength,Difficulty Following Directions,Limited Range of Motion,Poor Balance, Poor Safety Awareness PT-Balance Assessment Sitting Balance and Reactions Static Sitting Balance Ability Good Dynamic Sitting Balance Ability Good Standing Balance and Reactions Static Standing Balance Ability Fair Dynamic Standing Balance Ability Fair Device Used FWW M5 PT-IP Objective Assessments Start: 02/27/23 13:08 Freq: NEEDED Status: Active Protocol: Document 02/27/23 11:25 AB (Rec: 02/27/23 13:25 AB [id number]) Orientation Orientation/Cognition Level of Alertness Alert Orientation Name,Place,Situation Safety Awareness Decreased Safety Awareness Comments pt has soft speech Gross Range of Motion Lower Extremity ROM Assessment Within Functional Limits Strength Lower Extremity Strength Assessment Left Impaired Knee 4-/5 Coordination Assessment Gross Coordination Gross Coordination WNL Muscle Tone Muscle Tone WNL Yes M6 PT-IP Treatment Start: 02/27/23 13:08 Freq: NEEDED Status: Active Protocol: Document 02/27/23 11:25 AB (Rec: 02/27/23 13:25 AB [id number]) Physical Therapy Treatment Education Education Provided Safety M7 PT-IP Assessment and Plan Start: 02/27/23 13:08 Freq: NEEDED Status: Active Protocol: Document 02/27/23 11:25 AB (Rec: 02/27/23 13:25 AB [id number]) PT Summary Assessment and Plan Potential Rehabilitation Potential Fair Status of Condition at Evaluation Evolving Summary Impairments Pain,ROM,Strength,Balance, Coordination,Sensation,Tone, Cognition,Bed Mobility, Transfers,Gait,Activity Tolerance Assessment Summary pt presented to the ED due to transient aphasia and urinary incontinence. pt admitted for Covid infection. pt also has h/o CVA and vascular dementia affecting current condition. pt requiring min A for trasnfers and ambulation using FWW. d/c plan depending on progress but pt has his spouse at home to assist him. pt stated that he was limited with mobility prior to admisstion and occsionally uses his electric w/c inside the house due to feeling tired . will continue to assess progress. Goals Bed Mobility Goal Independent Transfer Goal Independent,Front Wheeled Walker Gait Goal Independent,Front Wheel Walker Gait Distance 50 Other Goals improve transfers and ambulation using LRAD/without AD 100 ft SBA Days to Meet Goals 10 Frequency of Treatment Frequency Of Treatment Once a Day Treatment Plan Physical Therapy Treatment Plan Bed Mobility Training,Transfer Training,Gait Training, Therapeutic Exercise,Balance Retraining,Discharge Planning, Hot or Cold Pack,Neuromuscular Re-ed,Coordination Retraining Precautions Other Precautions Special Droplet precautions ( Covid) Recommendations To Nursing Amount of Assist Needed 1 Person Assist Discharge Recommendations PT Discharge Recommendations Home with 15/09 Assist Available,Home Health Transportation Needs at Discharge Wheelchair/Cabulance
[2023-02-27] MEDS: INSULIN LISPRO 100 UNIT/ML 3ML VIAL 9 UNIT SUBCUT (12:02)
[2023-02-27 12:20] LABS: Troponin I 0.176 ng/mL (0.01-0.034)
--- NOTE | 2023-02-27 12:21 | PC.NURSE ---
MD notified of BG of 397, per orders patient given 9 units of lispro with lunch. MD notified of critical troponin 0.176, no new orders as they are trending down. He participated with PT for evaluation, asymptomatic of any discomfort at this time.
--- NOTE | 2023-02-27 12:45 | OT.IP.EVAL ---
Past Medical History (Last Updated 12/02/22 @ 10:20 by Asha Figueroa MD) Anemia Cataract COPD (chronic obstructive pulmonary disease) Diabetes Diabetes mellitus, labile History of colon polyps Ingrowing toenail of left foot Non-ST elevation myocardial infarction (NSTEMI) Rheumatoid arthritis Thalamic stroke Surgical History (Last Reviewed 08/19/22 @ 02:15 by Pancho Villa DO) History of cataract surgery Total knee replacement status Occupational Therapy Inpatient Evaluation/Re-Eval M1 PT/OT-IP Prior Functional Status Start: 02/27/23 13:34 Freq: NEEDED Status: Active Protocol: Document 02/27/23 12:45 [facility] (Rec: 02/27/23 14:07 [facility] [id number]) Medical Review Prior Functional Status Medical History Reviewed Yes Communication able to make needs known but is soft spoken Mobility and Gait pt stated that he was independent with all mobilities and ambulation without AD . Pt states uses his manual wc outdoors. At this his in present to help stand him up or present for reassurance and steadying. Activities of Daily Living and IADL's Pt's assists with LB dressing, toileting , and bathing needs. Social History Household Members spouse Living Arrangements House Number of Floors (Floors) Two Floors Number of Stairs To Enter/Railing? pt stays on the main level of the house no steps to enter, just a threshold per pt Home Environment Standard Height Toilet,Walk in Shower Home Equipment Front Wheel Walker,Manual Wheelchair,Bedside Commode, Shower Seat with Backrest,Hand Held Shower,Grab Bars In Shower Additional Social History Comment Pt has an adjustable bed. M2 OT-IP Current Condition Start: 02/27/23 13:34 Freq: Status: Active Protocol: Document 02/27/23 12:45 [facility] (Rec: 02/27/23 14:07 [facility] [id number]) Occupational Therapy Current Condition Current Condition Evaluation Date 02/27/23 Treatment Diagnosis Covid+ Diagnosis Onset Date 02/27/23 M3 OT- IP Subjective and Pain Start: 02/27/23 13:34 Freq: Status: Active Protocol: Document 02/27/23 12:45 [facility] (Rec: 02/27/23 14:07 [facility] [id number]) OT- Subjective Occupational Therapy Visit Type Type Initial Evaluation Visit Start Time 12:45 Visit Stop Time 13:30 Total Visit Minutes 45 Occupational Therapy Visit Comments Patient Comments Pt agreed to get up and his present in the room. Pt's troponin level trending down and okay to be seen for therapy by the doctor. Patient/Caregiver Goals TO go home. OT Pain Assessment Pain When Pain Assessed At Rest Pain Present Pain Present Denied Pain M4 OT- IP ADL's Start: 02/27/23 13:34 Freq: Status: Active Protocol: Document 02/27/23 12:45 [facility] (Rec: 02/27/23 14:07 [facility] [id number]) OT [id number] Comments OT Self-Feeding Comments Pt needing assist with set-up and able to bring food to his mouth. Pt coughing on the thin liquids in on his tray. Pt's state had MBS before but not able to recall what consistency that he is able to drink at this time. Notified nursing of coughing on thin liquids and would benefit from ELECTROMATIC TYPIST eval. Pt needing initial vc for incorporate use of left hand to assist with eating needs. OT ADL-Grooming Comments OT Grooming Comments Pt able to wash his face with a wash cloth after set-up. Noted pt having nose bleed right nostril, nursing notified. OT ADL-Oral Care General Eval Oral Care Ability Standby Assistance Areas of Assistance Retrieving/Set-Up of Items Comments Oral Care Comments Pt able to bun machine operator front of the sink with FWW and do his oral care needs with SBA and FWW. OT ADL-Dressing General Eval Lower Body Dressing Ability Maximum Assistance Areas Needing Assistance Underpants/Brief,Socks Comments OT Dressing Comments Pt's insists that she will just assist him with all dressing, toileting, and bathing needs. OT ADL-Toileting General Evaluation Toileting Ability Maximum Assistance Areas Needing Assistance Manage Clothing,Perform Perineal Hygiene Comments OT Toileting Comments Pt needing assist for all clothing needs. OT ADL-Bathing Comments OT Bathing Comments Pt would benefit from bath aid at home and also OT home health to go over safer options for equipment needs. M5 OT- IP IADL's Start: 02/27/23 13:34 Freq: Status: Active Protocol: Document 02/27/23 12:45 [facility] (Rec: 02/27/23 14:07 [facility] [id number]) OT-Instrumental Activities of Daily Living Home Safety Awareness Home Safety Comments Pt will need supervision for FWW safety, hand placement to push up from surfaces when coming to stand to the FWW. Medication Management Medication Management Caregiver Administers Money Management Money Management Comments states bills are automatically paid. Meal Preparation Meal Preparation Caregiver Provides Assist Travel Registered Nurse Nicu Travel Registered Nurse Nicu Caregiver Provides Assist M6 OT- IP Functional Cognition Start: 02/27/23 13:34 Freq: Status: Active Protocol: Document 02/27/23 12:45 [facility] (Rec: 02/27/23 14:07 [facility] [id number]) Cognitive Factors Limiting Selfcare Function Cognitive Ability Level of Alertness Alert Patient Orientation Name Attention Span Ability Capable of Focused Attention, Capable of Sustained Attention Ability to Follow Commands Able to Follow One Step Commands with Increased Time, Able to Follow One Step Commands with Repetition Memory Description Short Term Impaired,Working Impaired Cognitive Comments Cognitive Assessment Comments Pt having decreased STM, unable to read the clock properly, and needing cues for safety with FWW management needs. Pt having difficulty to get the words out. Pt saying wrist, when he meant to say thumb. OT- Vision and Hearing OT- Vision Assessment Visual Acuity Glasses All The Time Vision Assessment Comments Pt able to see the number on the clock correctly but not able to figure out properly what time it is. M7 OT- IP Mobility and Balance Start: 02/27/23 13:34 Freq: Status: Active Protocol: Document 02/27/23 12:45 [facility] (Rec: 02/27/23 14:07 [facility] [id number]) OT-Transfer Assessment Sit to and From Stand Sit to and from Stand Moderate Assistance,Maximum Assistance Transfers Transfer Ability Minimal Assistance Technique Transfer Destination Bed,Chair Transfer Technique Stand Step Pivot Devices Transfer Assistive Devices Gait Belt,Front Wheeled Walker Comments Mobility Comments Pt's able to assist pt with good safety to get up from the toilet and walk with the FWW and get back into bed. OT- Balance Assessment Sitting Balance and Reactions Static Sitting Balance Ability Good Dynamic Sitting Balance Ability Fair Standing Balance and Reactions Static Standing Balance Ability Fair Dynamic Standing Balance Ability Fair M8 OT- IP Objective Assessments Start: 02/27/23 13:34 Freq: Status: Active Protocol: Document 02/27/23 12:45 [facility] (Rec: 02/27/23 14:07 [facility] [id number]) OT Gross Range of Motion Upper Extremity Range of Motion Assessment Bilaterally Impaired OT Strength Upper Extremity Strength Assessment Bilaterally Impaired OT- Coordination Assessment Comments Coordination Comments Decreased due to arthritic changes in his hands. OT Sensation Assessment Comments Summary Comments Intact for light touch but not able to give proper name for the body part. M9 OT- IP Assessment and Plan Start: 02/27/23 13:34 Freq: Status: Active Protocol: Document 02/27/23 12:45 [facility] (Rec: 02/27/23 14:07 [facility] [id number]) OT Summary Assessment and Plan Potential Rehabilitation Potential Good Analytic Complexity at Evaluation Moderate Summary OT Impairments Strength,Balance,Coordination, Functional Cognition, Functional Mobility,Self- Feeding,Grooming,Dressing, Toileting,Bathing,Toilet Transfers,Shower Transfers, Activity Tolerance Progress Towards Goals Slow Progress due to Medical Issues,Slow Progress due to Activity Tolerance,Slow Progress due to Cognition Assessment Summary Pt MOD complexity and main barriers are decreased dynamic balance, weakness, and decreased activity tolerance, decreased STM and safety awareness. Pt's prior has been assisting him with most ADL and IADl needs. Pt looking to go home with with his assist and home health. Goals Self-Feeding Goal Standby Assistance Grooming Goal Standby Assistance Dressing Goal Moderate Assistance Toileting Goal Moderate Assistance Bathing Goal Moderate Assistance Toilet Transfer Goal Standby Assistance Shower Transfer Goal Contact Guard Assistance Days to Meet Goals 10 Frequency of Treatment Frequency Of Treatment Once a Day Treatment Plan OT Treatment Plan ADL Training,Functional Cognition Training,Functional Mobility,Patient/Family Education,Discharge Planning Other Treatment Recommendations and Next SLUMS Treatment Focus Discharge Recommendations OT Discharge Recommendations Home with 15/09 Assist Available,Home Health Transportation Needs at Discharge Private Vehicle
--- NOTE | 2023-02-27 13:10 | CM.DANOTE ---
Addendum entered by JOSE Vora 02/27/23 13:38: ADD: Will plan to add HH [employer] Original Note: Initial DCP Assessment Note Pt is an 83 yo male, resident of [place], presents to the ER for concern for stroke. Patient found to be COVID+ PCP: Jeramy Maier Payer: MCR/[employer] Reviewed chart, no H+P for review at this time. Met w/patient's spouse Liyah alongside OT Catrachita, very confusing conversation as spouse requires much redirecting, cyclical conversation. According to spouse, patient has a recent hx of multiple hospitalizations w/subsequent stay at [facility] (?) patient had then discharged home w/HH, agency unknown. Patient had been able to ambulate with walker but has a manual wheelchair available at home when his endurance wanes. Spouse had called [facility] at one point but decided against in home care because they required a minimum of hours to start services. Strongly encouraged spouse to contact alt. caregiving agencies. Patient has two adult children, both located out of the area. According to therapies, patient is moving fairly well and is expected to progress towards home w/HH recommendation. CM team will plan to follow closely for coordination of discharge plan. Spouse with no HH agency preference. JACK Chiu, kindly agreed to send HH referral to [facility] for RN/PT/OT/[employer]. F2F and HH order completed. JOSE Dunlap Discharge Planning/Care Management CM Discharge Assessment Start: 02/27/23 13:02 Freq: Status: Active Protocol: Document 02/27/23 13:02 [facility] (Rec: 02/27/23 13:10 [facility] [id number]) Discharge Planning Assessment Assigned Transformation Consultant JOSE Castellanos DPOA/Assigned Designee Name Liyah Lopez, alexander Contact Information [phone] Advance Directives? Yes Advance Directives on File No History Provided By Significant Other,Medical Record Household Members spouse Type of transporation used prior to Relies on Others admit Independent with ADL's No Is patient alert and oriented? Yes Needs Assistance With Bathing,Meal Prep,Toileting, Managing Medications,Home Chores / Shopping Patient/Family Preference Home with Home Health Comment Pending therapy evals - spouse would like to take him home. Discharge Plan Home with Home Health Transportation Arrangement Spouse Referrals Initiated Home Health Additional Comment Need HH pref from spouse
--- NOTE | 2023-02-27 13:30 | P.HP_ITS ---
History of Present Illness History of Present Illness Date Patient Seen: 02/27/23 Time Patient Seen: 10:00 Date of Onset of Symptoms: 02/26/23 Chief complaint: concerns of stroke Narrative: Patient presented evening of 02/26/23 to ED department with concern of transient aphasia and urinary incontinence occuring just prior to arrival. reports they ate dinner as usual and she fell asleep on the couch. She woke up and Kendall was staring off. She tried to engage him and he was only muttering and did not seem to be responding. She noticed he had an episode of urinary incontinence. She reports getting sick on February 22 and Kendall began showing symptoms yesterday of cough. She denies that he had fever, myalgias, or other complaints. Medical history is complicated by hx of NSTEMI, type 1 diabetes, and multiple CVAs occurring over the past 8 months. [facility] Medical History (Updated 02/27/23 @ 01:14 by Fara Pulido RN) Non-ST elevation myocardial infarction (NSTEMI) Diabetes mellitus, labile Thalamic stroke Rheumatoid arthritis Anemia Cataract Diabetes History of colon polyps COPD (chronic obstructive pulmonary disease) Ingrowing toenail of left foot Surgical History History of cataract surgery Total knee replacement status Social History household members: spouse Smoking Status: Never smoker alcohol intake: former Meds Home Medications and Allergies Home Medications Medication Instructions Recorded Confirmed Type hydroxychloroquine 200 mg tablet 200 mg PO BID 04/04/20 02/27/23 History insulin aspart U-100 100 unit/mL See Rx Instructions .Route .COMPLEX 04/04/20 02/27/23 History (3 mL) subcutaneous pen (Novolog FlexPen U-100 Insulin aspart) insulin glargine 100 unit/mL (3 14 unit SUBCUT BEDTIME 04/04/20 02/27/23 History mL) subcutaneous pen (Lantus Solostar U-100 Insulin) aspirin 81 mg chewable tablet 1 tab PO DAILY 10/03/22 02/27/23 History clopidogrel 75 mg tablet 75 mg PO DAILY 10/03/22 02/27/23 History metoprolol tartrate 50 mg tablet 50 mg PO BID 10/03/22 02/27/23 History rosuvastatin 5 mg tablet 5 mg PO DAILY 10/03/22 02/27/23 History Allergies Allergy/AdvReac Type Severity Reaction Status Date / Time shellfish derived AdvReac Nausea Verified 02/27/23 12:01 Review of Systems Review of Systems Narrative: as per HPI Exam Vital Signs (past 8 hours): - 02/27/23 07:00 02/27/23 07:00 02/27/23 08:00 Temperature 98.3 F Pulse Rate 76 Respiratory Rate 20 Blood Pressure 132/77 Pulse Oximetry 100 100 Oxygen Delivery Method Room Air Room Air Oxygen Flow Rate 0 02/27/23 12:00 Temperature 98.4 F Pulse Rate 71 Respiratory Rate 20 Blood Pressure 135/69 Pulse Oximetry 94 Oxygen Delivery Method Oxygen Flow Rate 0 Oxygen Delivery Method Room Air Oxygen Flow Rate 0 Const General: comfortable, ill appearing and lethargic HENMT Head: normal to inspection Chest Chest: normal inspection of the chest Resp Effort & Inspection: normal respiratory effort and able to speak in complete sentences Skin General: no rashes or lesions noted Neuro General: patient alert and patient awake Extrem General: normal to inspection Objective Labs 02/26/23 19:58 02/26/23 19:58 Labs: Laboratory Results - last 24 hr 02/26/23 02/26/23 02/26/23 19:58 20:35 22:15 WBC 10.7 RBC 4.18 L Hgb 11.6 L Hct 34.9 L MCV 83.4 MCH 27.7 MCHC 33.3 RDW 20.8 H Plt Count 215 Neut % (Auto) 90.8 H Lymph % (Auto) 2.4 L [place] % (Auto) 4.6 Eos % (Auto) 1.8 L Baso % (Auto) 0.4 Neut # (Auto) 9700 H Lymph # (Auto) 300 L [place] # (Auto) 500 Eos # (Auto) 200 Baso # (Auto) 0 RBC Morphology See below Anisocytosis 1+ H PT 12.6 H INR 1.1 APTT 33 Sodium 131 L Potassium 4.6 Chloride 99 Carbon Dioxide 21 L BUN 53 H Creatinine 1.18 Estimated GFR > 60 BUN/Creatinine Ratio 44.9 H Glucose 313 H Calcium 9.6 Total Bilirubin 0.8 AST TNP ALT 43 Alkaline Phosphatase 109 Total Creatine Kinase 103 Troponin I 0.147 H* 0.157 H* Total Protein 8.4 H Albumin 4.1 Globulin 4.3 H Albumin/Globulin Ratio 1.0 Urine Color Urine Appearance Urine pH Ur Specific [place] Urine Protein Urine Glucose (UA) Urine Ketones Urine Occult Blood Urine Nitrate Urine Bilirubin Urine Urobilinogen Ur Leukocyte Esterase Urine RBC Urine WBC Ur Squamous Epith Cells Ur Transition Epith Cell Urine Bacteria Hyaline Casts Granular Casts Ur Culture Indicated? U Opiates 300ng/mL cut Ur Oxycodone Screen Urine Methadone Screen Ur Barbiturates Screen U Tricyclic Antidepress Ur Phencyclidine Scrn Ur Amphetamines Screen U Methamphetamines Scrn Ur MDMA Scrn (Ecstasy) U Benzodiazepines Scrn Urine Cocaine Screen U Marijuana (THC) Screen Urine Specific [place] Ethyl Alcohol < 10 Ur Creatinine SARS-CoV-2 (PCR) Positive H 02/26/23 02/26/23 02/27/23 22:47 22:47 04:55 WBC RBC Hgb Hct MCV MCH MCHC RDW Plt Count Neut % (Auto) Lymph % (Auto) [place] % (Auto) Eos % (Auto) Baso % (Auto) Neut # (Auto) Lymph # (Auto) [place] # (Auto) Eos # (Auto) Baso # (Auto) RBC Morphology Anisocytosis PT INR APTT Sodium Potassium Chloride Carbon Dioxide BUN Creatinine Estimated GFR BUN/Creatinine Ratio Glucose Calcium Total Bilirubin AST ALT Alkaline Phosphatase Total Creatine Kinase Troponin I 0.202 H* Total Protein Albumin Globulin Albumin/Globulin Ratio Urine Color Yellow Urine Appearance Clear Urine pH 5.0 Normal Ur Specific [place] 1.020 Urine Protein 1+ H Urine Glucose (UA) Negative Urine Ketones Negative Urine Occult Blood 1+ H Urine Nitrate Negative Urine Bilirubin Negative Urine Urobilinogen 0.2 Ur Leukocyte Esterase Negative Urine RBC 0-1/hpf Urine WBC None seen Ur Squamous Epith Cells 0-1 /hpf Ur Transition Epith Cell 0-1/hpf Urine Bacteria Occasional (0-1) Hyaline Casts 0-1/lpf Granular Casts 0-1/lpf Ur Culture Indicated? Cult not indicated U Opiates 300ng/mL cut Negative Ur Oxycodone Screen Negative Urine Methadone Screen Negative Ur Barbiturates Screen Negative U Tricyclic Antidepress Negative Ur Phencyclidine Scrn Negative Ur Amphetamines Screen Negative U Methamphetamines Scrn Negative Ur MDMA Scrn (Ecstasy) Negative U Benzodiazepines Scrn Negative Urine Cocaine Screen Negative U Marijuana (THC) Screen Negative Urine Specific [place] Normal Ethyl Alcohol Ur Creatinine Normal SARS-CoV-2 (PCR) 02/27/23 11:40 WBC RBC Hgb Hct MCV MCH MCHC RDW Plt Count Neut % (Auto) Lymph % (Auto) [place] % (Auto) Eos % (Auto) Baso % (Auto) Neut # (Auto) Lymph # (Auto) [place] # (Auto) Eos # (Auto) Baso # (Auto) RBC Morphology Anisocytosis PT INR APTT Sodium Potassium Chloride Carbon Dioxide BUN Creatinine Estimated GFR BUN/Creatinine Ratio Glucose Calcium Total Bilirubin AST ALT Alkaline Phosphatase Total Creatine Kinase Troponin I 0.176 H* Total Protein Albumin Globulin Albumin/Globulin Ratio Urine Color Urine Appearance Urine pH Ur Specific [place] Urine Protein Urine Glucose (UA) Urine Ketones Urine Occult Blood Urine Nitrate Urine Bilirubin Urine Urobilinogen Ur Leukocyte Esterase Urine RBC Urine WBC Ur Squamous Epith Cells Ur Transition Epith Cell Urine Bacteria Hyaline Casts Granular Casts Ur Culture Indicated? U Opiates 300ng/mL cut Ur Oxycodone Screen Urine Methadone Screen Ur Barbiturates Screen U Tricyclic Antidepress Ur Phencyclidine Scrn Ur Amphetamines Screen U Methamphetamines Scrn Ur MDMA Scrn (Ecstasy) U Benzodiazepines Scrn Urine Cocaine Screen U Marijuana (THC) Screen Urine Specific [place] Ethyl Alcohol Ur Creatinine SARS-CoV-2 (PCR) Assessment & Plan Assessment and plan (1) COVID-19: Status: Acute (2) NSTEMI (non-ST elevated myocardial infarction): Status: Acute (3) TIA (transient ischemic attack): Status: Acute (4) Weakness generalized: Status: Acute (5) Type 1 diabetes: Qualifiers: Diabetes mellitus complication status: with neurologic complications D iabetes mellitus complication detail: with other neurological complication Qualified Code(s): E10.49 - 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 transplanted heart: [place] heart Associated angina: without angina Qualified Code(s): I25.10 - Atherosclerotic heart disease of [place] coronary artery without angina pectoris Status: Acute (8) Vascular dementia: Qualifiers: Dementia severity: moderate Dementia behavioral or psychological symptom: without behavioral, psychotic, or mood disturbance or anxiety Qualified Code(s): F01.B0 - Vascular dementia, moderate, without behavioral disturbance, psychotic disturbance, mood disturbance, and anxiety Status: Acute Plan #COVID 19 Infection #Generalized weakness Remdesivir 200 mg IV on admission, continue 100 mg IV x 4 days for risk of severe infection -PT/OT eval and treat #Elevated Troponin Known hx of severe diffuse 3-vessel calcific disease including left main disease diagnosed on heart cath in September during non-ST elevation [place]. Outpatient Cardiology notes recommend medical therapy as he would be extremely high risk for PCI and likely not a candidate for surgical revascularization. -continue aspirin, plavix, and metoprolol -Troponin downtrending, initial 0.157-->0.202--->0.176; like demand ischemia #Prior R Frontal Infarct Hx of acute L BG + Thalamic Infarct with suspect cardioembolic etiology. Hx of old right frontalinfarct, subacute right centrum semioval infarct. Acute/subacute ischemic infarcts in bilateral hemispheres in multiple territories with unknown etiology. Definitive cause determined, atherosclerosis as primary. -Neuro symptoms resolved -CT brain without acute intracranial hemorrhage, encephalomalacia in the right frontal lobes is increased compared to prior - appears chronic and may represent stroke in the interval from prior head CT -MRI ordered to confirm presence or absence of acute stroke -CT head and neck without intracranial arterial abnormality -continue aspirin and rosuvastatin -DIE MAINTENANCE eval and treat #Type 1 Diabetes A1C 6.2. Home regimen lantus 14 units nightly, 1u:20 carb. -continue home regimen of long actuing -lispro 0-9 units 4 times daily before meals and in addition to nightly -BG 130-199 --2 units with meals -BG 200-249 --3 units with meals -BG 250-299 -- 5 units with meals -BG 300-349 -- 7 units with meals -BG 350+ 9 units with meals #Chronic Moderate-Large Pericardial Effusion -Chest xray 02/26 showing moderate to large left pleural effusion. Chart review indicates previous TTE with redemonstration of pericardial and pleural effusion which has been present for > 2 years based on chart review. -Chest xray 02/26 showing right basilar patchy consolidation with trace pleural effusion which may represent sequela of aspiration and/or pneumonia -Will repeat chest xray outpatient #Rheumatoid Arthritis - will hold hydroxychloroquine while receiving remdesivir #Asthma uses fluticasone/salmetrol at home
--- NOTE | 2023-02-27 13:56 | DI.MRI.S_ITS ---
PROCEDURE: MR HEAD/BRAIN WO CON INDICATIONS: rule out acute stroke TECHNIQUE: Non-contrast axial T1 spin echo, axial T2 fast spin echo, sagittal and axial FLAIR, coronal T2 fast spin echo, axial gradient echo, axial diffusion and ADC through the brain. COMPARISON: [facility], MR, MR HEAD/BRAIN WO CON, 07/10/2022, 18:50. FINDINGS: Image quality: Excellent. CSF spaces: Ventricles appear symmetric in size and shape. Basal cisterns are patent. No extra-axial fluid collections. Brain: No intracranial bleeds or mass effects. There is cerebral volume loss for age. There are periventricular and deep white matter chronic small vessel ischemic changes. Brainstem appears normal. Diffusion-weighted images show no acute infarct. There is mild encephalomalacia involving the right frontal lobe near the midline falx, in the area of prior documented acute ischemic injury from MR scanning 07/10/22. No chronic ischemic insults. Normal intravascular flow voids are present. Skull and face: Calvarial bone marrow is normal in signal. Orbits are normal. Sinuses: Sinuses and mastoids are clear. IMPRESSION: No acute disease. Relatively prominent microvascular atherosclerotic changes seen within the deep white matter of each hemisphere. Additionally, prior stroke from June of last year results in chronic medial right frontal encephalomalacia. Dictated by: Justin Mirza M.D. on 02/27/2023 at 15:38 Approved by: Justin Mirza M.D. on 02/27/2023 at 15:40
[2023-02-27 15:35] LABS: Aspartate Aminotransferase 46 IU/L (17-59)
[2023-02-27] MEDS: INSULIN LISPRO 100 UNIT/ML 3ML VIAL 6 UNIT SUBCUT (17:05)
[2023-02-27] MEDS: INSULIN GLARGINE 100 UNIT/ML 3ML PEN 14 UNIT SUBCUT (20:53)
[2023-02-28] VITALS (10 sets, daily range): BP systolic 124–156; BP diastolic 56–73; PULSE 66–78; RESP 16–18; TEMP 36.7–37.6; O2SAT 94–96
[2023-02-28] MEDS: SODIUM CHLORIDE 0.9% 1,000 ML 100 ML IV ×3 (03:12→23:35)
[2023-02-28] MEDS: ACETAMINOPHEN 325 MG TABLET 650 MG PO (04:52)
[2023-02-28 06:28] LABS: Add Manual Diff / Slide Review NO; Basophils Absolute Auto 100 /uL (0-100); Basophils Percent Auto 1.2 % (0-2); Eosinophils Absolute Auto 200 /uL (0-450); Eosinophils Percent Auto 3.1 % (2-4); Hematocrit 27.8 % (41-53); Hemoglobin 9.4 g/dL (13.5-17.5); Lymphocytes Absolute Auto 800 /uL (1100-4500); Lymphocytes Percent Auto 14.5 % (25-40); Mean Corpuscular HGB Conc 33.9 % (30-36); Mean Corpuscular Hemoglobin 28.1 PG (26-34); Mean Corpuscular Volume 82.7 fL (80-100); Monocytes Absolute Auto 800 /uL (0-900); Monocytes Percent Auto 14.5 % (3-14); Neutrophils Absolute Auto 3600 /uL (1500-7000); Neutrophils Percent Auto 66.7 % (50-75); Platelet Count 167 X10^3/uL (150-400); Red Blood Cell Count 3.36 X10^6/uL (4.5-5.9); Red Cell Distribution Width 21.1 % (11.6-14.8); White Blood Cell Count 5.3 X10^3/uL (4.5-11.0)
[2023-02-28 06:41] LABS: BUN Creatinine Ratio 34.3 (6-22); Blood Urea Nitrogen 36 mg/dL (9-20); Calcium 8.4 mg/dL (8.4-10.2); Carbon Dioxide 20 mmol/L (22-32); Chloride 106 mmol/L (98-107); Estimated Glomerular Filt Rate > 60 mL/min (>60); Glucose 274 mg/dL (80-110); HEMOLYSIS < 15 (0-50); Potassium 4.2 mmol/L (3.4-5.1); Sodium 132 mmol/L (137-145)
[2023-02-28 06:52] LABS: Anisocytosis 1+
[2023-02-28] MEDS: METOPROLOL IR 50 MG TABLET PO ×2 (09:00→21:10)
[2023-02-28] MEDS: CLOPIDOGREL 75 MG TABLET PO (09:00)
[2023-02-28] MEDS: INSULIN LISPRO 100 UNIT/ML 3ML VIAL SUBCUT ×4 (09:00→21:12)
[2023-02-28] MEDS: ENOXAPARIN 40 MG/0.4 ML SYRINGE SUBCUT (09:00)
[2023-02-28] MEDS: ASPIRIN 81 MG CHEW TAB PO (09:00)
[2023-02-28] MEDS: INSULIN LISPRO 100 UNIT/ML 3ML VIAL 6 UNIT SUBCUT ×3 (09:01→17:29)
[2023-02-28] MEDS: REMDESIVIR 100 MG in SODIUM CHLORIDE 0.9% 250 ML 250 MG IV (09:34)
--- NOTE | 2023-02-28 10:58 | CM.DPNOTE ---
DCP Cont Spoke with Dr Figueroa; after conversation with spouse, provider requesting referral to [facility]. Patient expected to remain admitted until Thursday or Thursday for course of IV Remdesivir. Faxed facesheet and H+P to [facility]. Discussed referral w/Vani at [facility]. Will await further follow up for timeline, coordination etc Plan: Discharge home w/spouse expected early next week, hopefully [facility] can open services on a similar timeframe. JEWELL
--- NOTE | 2023-02-28 11:45 | P.PN_ITS ---
Subjective Subjective Date Patient Seen: 02/28/23 Time Patient Seen: 09:30 Interval history: Patient seen for admission secondary to acute mental status changes found to have COVID 19 infection. Patient reports feeling well this morning. Minimal cough. Eating breakfast. reports mental status changes persist. She continues to feel like he had an event evening when he was brought in. He does have a significant history of strokes in the past 8 months. Exam Vital Signs (past 8 hours): - 02/28/23 04:00 02/28/23 04:52 02/28/23 05:30 Temperature 99.4 F 99.2 F 98.2 F Pulse Rate 76 Respiratory Rate 17 Blood Pressure 128/66 Pulse Oximetry 96 Oxygen Delivery Method Oxygen Flow Rate 0 02/28/23 07:00 02/28/23 08:00 02/28/23 08:45 Temperature 99.6 F Pulse Rate 78 Respiratory Rate 18 Blood Pressure 135/56 L Pulse Oximetry 95 94 Oxygen Delivery Method Room Air Room Air Oxygen Flow Rate Oxygen Delivery Method Room Air Oxygen Flow Rate 0 Narrative Exam Narrative: Const General: comfortable, ill appearing and lethargic HENND Head: normal to inspection Chest Chest: normal inspection of the chest Resp Effort & Inspection: normal respiratory effort and able to speak in complete sentences Skin General: no rashes or lesions noted Neuro General: patient alert and patient awake Extrem General: normal to inspection Objective Labs 02/28/23 05:00 02/28/23 05:00 Labs: Laboratory Results - last 24 hr 02/26/23 02/27/23 02/28/23 19:58 11:40 05:00 WBC 5.3 D RBC 3.36 L Hgb 9.4 L Hct 27.8 L MCV 82.7 MCH 28.1 MCHC 33.9 RDW 21.1 H Plt Count 167 Neut % (Auto) 66.7 D Lymph % (Auto) 14.5 L [place] % (Auto) 14.5 H Eos % (Auto) 3.1 Baso % (Auto) 1.2 Neut # (Auto) 3600 Lymph # (Auto) 800 L [place] # (Auto) 800 Eos # (Auto) 200 Baso # (Auto) 100 RBC Morphology See below Anisocytosis 1+ H Sodium 132 L Potassium 4.2 Chloride 106 Carbon Dioxide 20 L BUN 36 H Creatinine 1.05 Estimated GFR > 60 BUN/Creatinine Ratio 34.3 H Glucose 274 H Calcium 8.4 AST 46 Troponin I 0.176 H* [facility] Medical History (Updated 02/27/23 @ 01:14 by Fara Pulido RN) Non-ST elevation myocardial infarction (NSTEMI) Diabetes mellitus, labile Thalamic stroke Rheumatoid arthritis Anemia Cataract Diabetes History of colon polyps COPD (chronic obstructive pulmonary disease) Ingrowing toenail of left foot Surgical History History of cataract surgery Total knee replacement status Social History household members: spouse Smoking Status: Never smoker alcohol intake: former Assessment & Plan Assessment and plan (1) COVID-19: Status: Acute (2) NSTEMI (non-ST elevated myocardial infarction): Status: Acute (3) TIA (transient ischemic attack): Status: Acute (4) Weakness generalized: Status: Acute (5) Type 1 diabetes: Qualifiers: Diabetes mellitus complication status: with neurologic complications D iabetes mellitus complication detail: with other neurological complication Qualified Code(s): E10.49 - 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 transplanted heart: [place] heart Associated angina: without angina Qualified Code(s): I25.10 - Atherosclerotic heart disease of [place] coronary artery without angina pectoris Status: Acute (8) Vascular dementia: Qualifiers: Dementia severity: moderate Dementia behavioral or psychological symptom: without behavioral, psychotic, or mood disturbance or anxiety Qualified Code(s): F01.B0 - Vascular dementia, moderate, without behavioral disturbance, psychotic disturbance, mood disturbance, and anxiety Status: Acute Assessment & Plan narrative: #COVID 19 Infection #Generalized weakness Remdesivir 200 mg IV on admission, continue 100 mg IV x 4 days for risk of severe infection -PT/OT eval and treat #Elevated Troponin Known hx of severe diffuse 3-vessel calcific disease including left main disease diagnosed on heart cath in September during non-ST elevation [place]. Outpatient Cardiology notes recommend medical therapy as he would be extremely high risk for PCI and likely not a candidate for surgical revascularization. -continue aspirin, plavix, and metoprolol -Troponin downtrending, initial 0.157-->0.202--->0.176; likely demand ischemia #Prior R Frontal Infarct Hx of acute L BG + Thalamic Infarct with suspect cardioembolic etiology. Hx of old right frontalinfarct, subacute right centrum semioval infarct. Acute/subacute ischemic infarcts in bilateral hemispheres in multiple territories with unknown etiology. Definitive cause determined, atherosclerosis as primary. -Neuro symptoms resolved -CT brain without acute intracranial hemorrhage, encephalomalacia in the right frontal lobes is increased compared to prior - appears chronic and may represent stroke in the interval from prior head CT -MRI 02/27 showing no acute disease. Prior stroke from June results in chronic medial right frontal encephalomalacia. -CT head and neck without intracranial arterial abnormality -continue aspirin and rosuvastatin -CORPORATE SAFETY COORDINATOR eval and treat - requesting discussion with hospice, care management to cordinate #Type 1 Diabetes A1C 6.2. Home regimen lantus 14 units nightly, 1u:20 carb. -continue home regimen of long acting -will add 6 units short acting with meals -lispro 0-9 units 4 times daily before meals and in addition to nightly -BG 130-199 --2 units with meals -BG 200-249 --3 units with meals -BG 250-299 -- 5 units with meals -BG 300-349 -- 7 units with meals -BG 350+ 9 units with meals #Chronic Moderate-Large Pericardial Effusion -Chest xray 02/26 showing moderate to large left pleural effusion. Chart review indicates previous TTE with redemonstration of pericardial and pleural effusion which has been present for > 2 years based on chart review. -Chest xray 02/26 showing right basilar patchy consolidation with trace pleural effusion which may represent sequela of aspiration and/or pneumonia -Will repeat chest xray outpatient #Rheumatoid Arthritis - will hold hydroxychloroquine while receiving remdesivir #Asthma uses fluticasone/salmetrol at home Disposition Ongoing acute mental status change and COVID 19 infection. Anticipate discharge in 2-3 days.
--- NOTE | 2023-02-28 11:50 | PT.IPTN ---
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 (02/27/23) Vascular dementia, moderate, without behavioral disturbance, psychotic disturbance, mood disturbance, and anxiety (02/27/23) Transient cerebral ischemic attack, unspecified (02/27/23) Non-ST elevation (NSTEMI) myocardial infarction (02/27/23) Atherosclerotic heart disease of [place] coronary artery without angina pectoris (02/27/23) Weakness (02/27/23) COVID-19 (02/27/23) Physical Therapy Treatment Note M2 PT-IP Current Condition Start: 02/27/23 13:08 Freq: NEEDED Status: Active Protocol: Document 02/27/23 11:25 AB (Rec: 02/27/23 13:25 AB [id number]) Physical Therapy Current Condition Current Condition Evaluation Date 02/27/23 Treatment Diagnosis Covid; difficulty in walking Onset Date 02/27/23 M3 PT-IP Subjective Start: 02/27/23 13:08 Freq: NEEDED Status: Active Protocol: Document 02/28/23 12:24 TS (Rec: 02/28/23 12:32 TS [id number]) Subjective Physical Therapy Visit Type Type Treatment Note Visit Start Time 11:50 Visit Stop Time 12:15 Total Visit Minutes 25 Number of DENTAL HYGIENE ADMINISTRATIVE ASSISTANT Visits 1 Physical Therapy Visit Comments Patient Comments Pt found resting in bed, reports feeling a little better today, is agreeable to PT. M4 PT-IP Mobility and Gait Start: 02/27/23 13:08 Freq: NEEDED Status: Active Protocol: Document 02/28/23 12:24 TS (Rec: 02/28/23 12:32 TS [id number]) PT-Bed Mobility Assessment Supine to Sit Supine to Sit Standby Assistance,Head of Bed Elevated Scooting Scooting to Edge of Bed Minimal Assistance PT-Transfer Assessment Sit to and From Stand Sit to and from Stand Standby Assistance,Contact Guard Assistance Equipment Transfer Assistive Device Gait Belt,Front Wheeled Walker Orthotic/Prosthetic Devices or Brace: No Transfers Transfer Destination Bedside Commode Transfer Technique Stand Step Pivot Transfer Ability Level of Assist Contact Guard Assistance Comments Mobility Comments Pt found resting in bed, BP in supine 120/62. Supine to sit SBA with HOB elevated and BUE support. Pt required Meng for scooting to EOB, pt cued for handrail assist. Sit to stand with FWW SBA, pt reports having BM, [facility] with stand step pivot and FWW. Pt was assisted in standing with pericare, sit to stand form [facility]. He ambulated in room ~30'SBA with slow step thru gait, reported some lightheadedness. Pt was left in chair, all needs met, nursing notified. Gait Assessment Gait Gait Assistance Required: Standby Assistance Distance (Feet) 30 Able to Maintain Weight Bearing Status Yes During Gait Assistive Devices Assistive Device Gait Belt,Front Wheeled Walker Orthotic/Prosthetic Devices or Brace: No Gait Deviations General Gait Pattern Decreased Stride Length, Decreased Feet Clearance,Step- to Gait Factors Limiting Gait Function Factors Limiting Gait Function Decreased Activity Tolerance, Decreased Strength,Difficulty Following Directions,Limited Range of Motion,Poor Balance, Poor Safety Awareness Comments Gait Comments See mobility comments PT-Balance Assessment Sitting Balance and Reactions Static Sitting Balance Ability Good Dynamic Sitting Balance Ability Fair Standing Balance and Reactions Static Standing Balance Ability Fair Dynamic Standing Balance Ability Fair Device Used FWW M5 PT-IP Objective Assessments Start: 02/27/23 13:08 Freq: NEEDED Status: Active Protocol: Document 02/27/23 11:25 AB (Rec: 02/27/23 13:25 AB [id number]) Orientation Orientation/Cognition Level of Alertness Alert Orientation Name,Place,Situation Safety Awareness Decreased Safety Awareness Comments pt has soft speech Gross Range of Motion Lower Extremity ROM Assessment Within Functional Limits Strength Lower Extremity Strength Assessment Left Impaired Knee 4-/5 Coordination Assessment Gross Coordination Gross Coordination WNL Muscle Tone Muscle Tone WNL Yes M6 PT-IP Treatment Start: 02/27/23 13:08 Freq: NEEDED Status: Active Protocol: Document 02/28/23 12:24 TS (Rec: 02/28/23 12:32 [id number]) Physical Therapy Treatment Education Education Provided Safety M7 PT-IP Assessment and Plan Start: 02/27/23 13:08 Freq: NEEDED Status: Active Protocol: Document 02/28/23 12:24 TS (Rec: 02/28/23 12:32 TS [id number]) PT Summary Assessment and Plan Potential Rehabilitation Potential Fair Summary Impairments Pain,ROM,Strength,Balance, Coordination,Sensation,Tone, Cognition,Bed Mobility, Transfers,Gait,Activity Tolerance Progress Towards Goals Progressing Toward Goals Assessment Summary Kendall is making some progress with his mobility. He required decreased assist for sit to stand and with gait. He progressed his gait to ~30' in room SBA with use of FWW, had no buckling or LOB. He does continue to have some fatigue and decreased activity tolerance. PT is recommending pt return home with 24/7 assist and HHPT. Goals Bed Mobility Goal Independent Transfer Goal Independent,Front Wheeled Walker Gait Goal Independent,Front Wheel Walker Gait Distance 50 Other Goals improve transfers and ambulation using LRAD/without AD 100 ft SBA Days to Meet Goals 10 Frequency of Treatment Frequency Of Treatment Once a Day Treatment Plan Physical Therapy Treatment Plan Bed Mobility Training,Transfer Training,Gait Training, Therapeutic Exercise,Balance Retraining,Discharge Planning, Hot or Cold Pack,Neuromuscular Re-ed,Coordination Retraining Precautions Other Precautions Special Droplet precautions ( Covid) Recommendations To Nursing Amount of Assist Needed 1 Person Assist Discharge Recommendations PT Discharge Recommendations Home with 24/7 Assist Available,Home Health Transportation Needs at Discharge Wheelchair/Cabulance
[2023-02-28] MEDS: INSULIN GLARGINE 100 UNIT/ML 3ML PEN 14 UNIT SUBCUT (21:10)
[2023-02-28] MEDS: ATORVASTATIN 20 MG TABLET 10 MG PO (21:10)
[2023-03-01] VITALS: BP 160/88; PULSE 74; RESP 16; TEMP 36.7; O2SAT 95
[2023-03-01 04:00] VITALS: BP 158/66; PULSE 77; RESP 16; TEMP 37; O2SAT 95
[2023-03-01 08:00] VITALS: BP 140/72; PULSE 71; RESP 24; TEMP 36.7; O2SAT 94
[2023-03-01] MEDS: INSULIN LISPRO 100 UNIT/ML 3ML VIAL 6 UNIT SUBCUT ×3 (08:42→17:03)
[2023-03-01] MEDS: INSULIN LISPRO 100 UNIT/ML 3ML VIAL SUBCUT ×4 (08:43→21:20)
[2023-03-01] MEDS: CLOPIDOGREL 75 MG TABLET PO (08:45)
[2023-03-01] MEDS: ASPIRIN 81 MG CHEW TAB PO (08:45)
[2023-03-01] MEDS: REMDESIVIR 100 MG in SODIUM CHLORIDE 0.9% 250 ML 250 MG IV (08:45)
[2023-03-01] MEDS: ENOXAPARIN 40 MG/0.4 ML SYRINGE SUBCUT (08:45)
[2023-03-01] MEDS: METOPROLOL IR 50 MG TABLET PO ×2 (08:46→21:22)
[2023-03-01] MEDS: SODIUM CHLORIDE 0.9% 1,000 ML 100 ML IV ×2 (08:47→19:51)
--- NOTE | 2023-03-01 10:47 | PM.PN.1 ---
Subjective Subjective Date Patient Seen: 03/01/23 Time Patient Seen: 09:15 Interval history: Patient seen for admission secondary to acute mental status changes found to have COVID 19 infection. Patient reports feeling well this morning. No breathing or cough concerns. He is alert and oriented to self and situation. He does not know the year. He continues to struggle with short term memory issues which is new this admission. Exam Vital Signs (past 8 hours): - 03/01/23 04:00 03/01/23 08:00 03/01/23 08:00 Temperature 98.6 F 98.0 F Pulse Rate 77 71 Respiratory Rate 16 24 Blood Pressure 158/66 H 140/72 Pulse Oximetry 95 94 Oxygen Delivery Method Room Air Oxygen Flow Rate 0 0 03/01/23 08:00 Temperature Pulse Rate Respiratory Rate Blood Pressure Pulse Oximetry 94 Oxygen Delivery Method Room Air Oxygen Flow Rate Oxygen Delivery Method Room Air Oxygen Flow Rate 0 Narrative Exam Narrative: Const General: comfortable, ill appearing and lethargic HENMT Head: normal to inspection Chest Chest: normal inspection of the chest Resp Effort & Inspection: normal respiratory effort and able to speak in complete sentences Skin General: no rashes or lesions noted Neuro General: patient alert and patient awake Extrem General: normal to inspection Objective Labs 02/28/23 05:00 02/28/23 05:00 [facility] Medical History (Updated 02/27/23 @ 01:14 by Fara Pulido RN) Non-ST elevation myocardial infarction (NSTEMI) Diabetes mellitus, labile Thalamic stroke Rheumatoid arthritis Anemia Cataract Diabetes History of colon polyps COPD (chronic obstructive pulmonary disease) Ingrowing toenail of left foot Surgical History History of cataract surgery Total knee replacement status Social History household members: spouse Smoking Status: Never smoker alcohol intake: former Assessment & Plan Assessment and plan (1) Weakness generalized: Status: Acute (2) NSTEMI (non-ST elevated myocardial infarction): Status: Acute (3) TIA (transient ischemic attack): Status: Acute (4) COVID-19: Status: Acute Plan #COVID 19 Infection #Generalized weakness Remdesivir 200 mg IV on admission, continue 100 mg IV x 4 days for risk of severe infection. -PT/OT eval and treat #Elevated Troponin Known hx of severe diffuse 3-vessel calcific disease including left main disease diagnosed on heart cath in September during non-ST elevation [place]. Outpatient Cardiology notes recommend medical therapy as he would be extremely high risk for PCI and likely not a candidate for surgical revascularization. -continue aspirin, plavix, and metoprolol -Troponin downtrending, initial 0.157-->0.202--->0.176; likely demand ischemia #Prior R Frontal Infarct Hx of acute L BG + Thalamic Infarct with suspect cardioembolic etiology. Hx of old right frontalinfarct, subacute right centrum semioval infarct. Acute/subacute ischemic infarcts in bilateral hemispheres in multiple territories with unknown etiology. Definitive cause determined, atherosclerosis as primary. -Neuro symptoms resolved -CT brain without acute intracranial hemorrhage, encephalomalacia in the right frontal lobes is increased compared to prior - appears chronic and may represent stroke in the interval from prior head CT -MRI 02/27 showing no acute disease. Prior stroke from June results in chronic medial right frontal encephalomalacia. -CT head and neck without intracranial arterial abnormality -continue aspirin and rosuvastatin -ENTRY LEVEL CIVIL ENGINEER eval and treat - requesting discussion with hospice, care management to coordinate #Type 1 Diabetes A1C 6.2. Home regimen lantus 14 units nightly, 1u:20 carb. -continue home regimen of long acting -will add 6 units short acting with meals -lispro 0-9 units 4 times daily before meals and in addition to nightly -BG 130-199 --2 units with meals -BG 200-249 --3 units with meals -BG 250-299 -- 5 units with meals -BG 300-349 -- 7 units with meals -BG 350+ 9 units with meals #Chronic Moderate-Large Pericardial Effusion -Chest xray 02/26 showing moderate to large left pleural effusion. Chart review indicates previous TTE with redemonstration of pericardial and pleural effusion which has been present for > 2 years based on chart review. -Chest xray 02/26 showing right basilar patchy consolidation with trace pleural effusion which may represent sequela of aspiration and/or pneumonia -Will repeat chest xray outpatient #Rheumatoid Arthritis - will hold hydroxychloroquine while receiving remdesivir #Asthma uses fluticasone/salmetrol at home Disposition Ongoing acute mental status change and COVID 19 infection. Anticipate discharge in 1-2 days. Time Spent With Patient Time with patient: 50 to 69 minutes with 50% spent counseling/coordinating care
[2023-03-01 11:40] VITALS: BP 123/73; PULSE 71; RESP 20; TEMP 36.9; O2SAT 96
--- NOTE | 2023-03-01 14:11 | CM.DPC ---
DCP HH planning cont: Per MD, pt making progress and rounded with pt and spouse and plan is d/c home tomorrow Mon after his tx of Remdesivir. SW received a call from Vani at [facility] stating she attempted Hospice Info Visit with spouse but spouse was confused about Hospice and not agreeable to Info Visit at this time. Per PT, recommending home with 15/09 and HH. SW met with spouse and had lengthy discussion regarding Hospice services and supports and Goals of Care for the patient and spouse quite tearful and feels that pt would currently want treatment and not Hospice yet. SW discussed that people can graduate off Hospice services as well or Hospice could be involved down the road. Spouse states that she feels she can continue to manage pt's DM with insulin but her biggest need is for some increased assist at home with ADLs for the patient and to give her a break so she can go to her own appointments as well. Spouse confirms she has already met with [facility] and plans to call them today to set up 15 hours a week to start for assist in the home. Ultimately spouse envisions finding a CG to move into their downstairs apartment and assist them for room and board. SW encouraged her to seek her adult Dtr's assistance with this idea. Spouse confirms that currently her preference is home tomorrow Mon with [facility] and spouse will set up [facility] agency. SW answered questions regarding [facility] vs Independent living vs Assisted Living and gave spouse the Senior Resource Guidebook to review for likely future needs and again requested she discuss and seek assist from her Dtr with LTC planning. SW left ms for [facility] that pt likely to d/c home tomorrow 03/02/23 and requested pt to be placed on the schedule for or Thu if possible. CHRISTEN updated [facility] that current plan is home with HH. Plan: SW to follow tomorrow for plan of discharge home with spouse and [facility] and new [facility] in the home for additional support. JOSE Cain
--- NOTE | 2023-03-01 15:11 | PT.IPTN ---
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 (02/27/23) Vascular dementia, moderate, without behavioral disturbance, psychotic disturbance, mood disturbance, and anxiety (02/27/23) Transient cerebral ischemic attack, unspecified (02/27/23) Non-ST elevation (NSTEMI) myocardial infarction (02/27/23) Atherosclerotic heart disease of [place] coronary artery without angina pectoris (02/27/23) Weakness (02/27/23) COVID-19 (02/27/23) Physical Therapy Treatment Note M2 PT-IP Current Condition Start: 02/27/23 13:08 Freq: NEEDED Status: Active Protocol: Document 02/27/23 11:25 AB (Rec: 02/27/23 13:25 AB [id number]) Physical Therapy Current Condition Current Condition Evaluation Date 02/27/23 Treatment Diagnosis Covid; difficulty in walking Onset Date 02/27/23 M3 PT-IP Subjective Start: 02/27/23 13:08 Freq: NEEDED Status: Active Protocol: Document 03/01/23 14:45 MB (Rec: 03/01/23 15:10 MB [id number]) Subjective Physical Therapy Visit Type Type Treatment Note Visit Start Time 14:45 Visit Stop Time 15:00 Total Visit Minutes 15 Number of NUT PROCESS HELPER Visits 0 Physical Therapy Visit Comments Patient Comments Pt presents with hypoverbality and confusion. Therapy Pain Assessment Pain Present Pain Present Denied Pain M4 PT-IP Mobility and Gait Start: 02/27/23 13:08 Freq: NEEDED Status: Active Protocol: Document 03/01/23 14:45 MB (Rec: 03/01/23 15:10 MB [id number]) PT-Bed Mobility Assessment Supine to Sit Supine to Sit Standby Assistance,Head of Bed Elevated,Bedrails Scooting Scooting to Edge of Bed Maximum Assistance PT-Transfer Assessment Sit to and From Stand Sit to and from Stand Maximum Assistance,1 Person Assistance,Use of Upper Extremities Equipment Transfer Assistive Device Gait Belt,Front Wheeled Walker Orthotic/Prosthetic Devices or Brace: No Transfers Transfer Destination Chair Transfer Technique Stand Step Pivot Transfer Ability Level of Assist Maximum Assistance,1 Person Assistance,Use of Upper Extremities Comments Mobility Comments Pt hook lying in bed with HOB increased and foot of bed bent . Pt with mild LE edema and with WEBBER with talking and mobility. O2 sats are 96% on RA. Gait Assessment Comments Gait Comments Slow mobility, very difficult for pt to scoot to the EOB, confusion and hypoverbal today . PT-Balance Assessment Sitting Balance and Reactions Static Sitting Balance Ability Fair Dynamic Sitting Balance Ability Poor Standing Balance and Reactions Static Standing Balance Ability Poor Dynamic Standing Balance Ability Poor Device Used FWW M5 PT-IP Objective Assessments Start: 02/27/23 13:08 Freq: NEEDED Status: Active Protocol: Document 02/27/23 11:25 AB (Rec: 02/27/23 13:25 AB [id number]) Orientation Orientation/Cognition Level of Alertness Alert Orientation Name,Place,Situation Safety Awareness Decreased Safety Awareness Comments pt has soft speech Gross Range of Motion Lower Extremity ROM Assessment Within Functional Limits Strength Lower Extremity Strength Assessment Left Impaired Knee 4-/5 Coordination Assessment Gross Coordination Gross Coordination WNL Muscle Tone Muscle Tone WNL Yes M6 PT-IP Treatment Start: 02/27/23 13:08 Freq: NEEDED Status: Active Protocol: Document 02/28/23 12:24 TS (Rec: 02/28/23 12:32 TS [id number]) Physical Therapy Treatment Education Education Provided Safety M7 PT-IP Assessment and Plan Start: 02/27/23 13:08 Freq: NEEDED Status: Active Protocol: Document 03/01/23 14:45 MB (Rec: 03/01/23 15:10 MB [id number]) PT Summary Assessment and Plan Potential Rehabilitation Potential Fair Status of Condition at Evaluation Evolving Summary Impairments Strength,Balance,Cognition,Bed Mobility,Transfers,Gait, Activity Tolerance Progress Towards Goals Slow Progress due to Activity Tolerance Assessment Summary When comparing pt's presentation today to last date's, he is not doing as well functionally. He has a lot of WEBBER, confusion and he is hypoverbal. He has globalized functional weakness and requires max A to scoot to EOB and to stand. His condom cath is off on arrival and his bed is soaked. Left up in chair with MACHINE OPERATOR PACKAGING aware and safety alarm on and MACHINE OPERATOR PACKAGING assisting with clean up after treatment. Goals Bed Mobility Goal Contact Guard Assistance Transfer Goal Contact Guard Assistance,Front Wheeled Walker Gait Goal Contact Guard Assistance,Front Wheel Walker Gait Distance 50 Other Goals improve transfers and ambulation using LRAD/without AD 100 ft SBA Days to Meet Goals 10 Frequency of Treatment Frequency Of Treatment Once a Day Treatment Plan Physical Therapy Treatment Plan Bed Mobility Training,Transfer Training,Gait Training, Therapeutic Exercise,Balance Retraining,Discharge Planning Precautions Other Precautions Covid droplet precautions Recommendations To Nursing Amount of Assist Needed 1 Person Assist Discharge Recommendations PT Discharge Recommendations Home with / Assist Available,Home Health Transportation Needs at Discharge Wheelchair/Cabulance
[2023-03-01 16:00] VITALS: BP 124/66; PULSE 51; RESP 20; TEMP 36.6; O2SAT 98
[2023-03-01 20:00] VITALS: BP 133/68; PULSE 76; RESP 16; TEMP 37; O2SAT 95
[2023-03-01] MEDS: INSULIN GLARGINE 100 UNIT/ML 3ML PEN 14 UNIT SUBCUT (21:20)
[2023-03-01] MEDS: ATORVASTATIN 20 MG TABLET 10 MG PO (21:22)
[2023-03-02] VITALS: BP 131/71; PULSE 68; RESP 16; TEMP 37; O2SAT 96
[2023-03-02 03:59] VITALS: BP 143/78; PULSE 74; RESP 20; TEMP 36.8; O2SAT 96
[2023-03-02] MEDS: SODIUM CHLORIDE 0.9% 1,000 ML 100 ML IV (05:28)
[2023-03-02 07:00] VITALS: O2SAT 97
[2023-03-02] MEDS: ENOXAPARIN 40 MG/0.4 ML SYRINGE SUBCUT (08:07)
[2023-03-02] MEDS: ASPIRIN 81 MG CHEW TAB PO (08:07)
[2023-03-02] MEDS: CLOPIDOGREL 75 MG TABLET PO (08:07)
[2023-03-02] MEDS: METOPROLOL IR 50 MG TABLET PO (08:07)
[2023-03-02] MEDS: INSULIN LISPRO 100 UNIT/ML 3ML VIAL SUBCUT ×2 (08:09→12:11)
[2023-03-02] MEDS: INSULIN LISPRO 100 UNIT/ML 3ML VIAL 6 UNIT SUBCUT ×2 (08:09→12:10)
[2023-03-02 08:56] VITALS: BP 129/80; PULSE 76; RESP 18; TEMP 36.7; O2SAT 97
[2023-03-02] MEDS: REMDESIVIR 100 MG in SODIUM CHLORIDE 0.9% 250 ML 250 MG IV (10:30)
[2023-03-02 12:19] VITALS: BP 130/76; PULSE 80; RESP 17; TEMP 36.6; O2SAT 97
--- NOTE | 2023-03-02 12:38 | ST.IPCSEOM ---
Visit Care Team Role Provider Type Richar Pettit MD Family Provider Physician Specialty: Internal Medicine Pediatrics Address: [address] [place] [address] Email: [email or web address] Sid Nixon MD Emergency Provider Physician Specialty: Emergency Medicine Address: [address] [place] [address] Fax: Email: [email or web address] [email or web address] Figueroa MD Attending Provider Physician Primary Care Provider Specialty: Family Practice Obstetrics Address: [address] [place] [address] Email: [email or web address] Jeramy Maier MD Admit Provider Physician Other Providers Specialty: Internal Medicine Address: [address] [place] [address], [address], [place], [facility] Email: [email or web address] 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 (02/27/23) Vascular dementia, moderate, without behavioral disturbance, psychotic disturbance, mood disturbance, and anxiety (02/27/23) Transient cerebral ischemic attack, unspecified (02/27/23) Non-ST elevation (NSTEMI) myocardial infarction (02/27/23) Atherosclerotic heart disease of [place] coronary artery without angina pectoris (02/27/23) Weakness (02/27/23) COVID-19 (02/27/23) Past Medical History (Last Updated 12/02/22 @ 10:20 by Asha Figueroa MD) Anemia (Medical) Cataract (Medical) COPD (chronic obstructive pulmonary disease) (Medical) Diabetes (Medical) Diabetes mellitus, labile (Medical) History of colon polyps (Medical) Ingrowing toenail of left foot (Medical) Non-ST elevation myocardial infarction (NSTEMI) (Medical) Rheumatoid arthritis (Medical) Thalamic stroke (Medical) Speech-Language Pathology Swallow Evaluation MEDICAL PATHOLOGIST Clinical Swallow Evaluation Start: 03/02/23 09:20 Freq: Status: Active Protocol: Document 03/02/23 09:21 MA (Rec: 03/02/23 09:39 MA [id number]) Clinical Swallow Evaluation Session Time Visit Start Time 08:30 Visit Stop Time 09:15 Total Visit Minutes 45 Visit Information Visit Number 1 Referral Referring Provider Merrick Oneil Reason for Referral dysphagia Setting Assessment Location Acute Care Visit Type Note Type Initial evaluation Next Note Type Next Note Type Treatment Note Patient Information Identification Type Name,Date of ,Wristband History Per H&P: Patient presented evening of 02/26/23 to ED department with concern of transient aphasia and urinary incontinence occuring just prior to arrival. reports they ate dinner as usual and she fell asleep on the couch. She woke up and Kendall was staring off. She tried to engage him and he was only muttering and did not seem to be responding. She noticed he had an episode of urinary incontinence. She reports getting sick on February 22 and Kendall began showing symptoms yesterday of cough. She denies that he had fever, myalgias, or other complaints. Medical history is complicated by hx of NSTEMI, type 1 diabetes, and multiple CVAs occurring over the past 8 months. PMHx significant for: Non-ST elevation myocardial infarction (NSTEMI) Diabetes mellitus, labile Thalamic stroke Rheumatoid arthritis Anemia Cataract Diabetes History of colon polyps COPD (chronic obstructive pulmonary disease) Ingrowing toenail of left foot He was hospitalized in August for a left basal ganglia/ thalamic infarct, found to be secondary to atherosclerosis. with resultant deficits in expressive communication and swallow function, recieving a G-Tube placement at that time. Mx: DM1, hypertension, hyperlipidemia, chronic pericardial effusion, rheumatoid arthritis and asthma. He had the feeding tube removed 01/23/23. Pt referred for ST evaluation d/t Pt chest x-ray on 02/26/22 indicating: right basilar patchy consolidation with trace pleural effusion which may represent sequela of aspiration and/or pneumonia. Subjective Observations Pt sitting upright in bed. Pt oriented to self and place stating year as 2021. Pt with high blood sugar, however nursing said it was okay for Pt to consume breakfast. Nursing reports no observed coughing or swallowing difficulties. She states they have not been giving him straws. Pt participated in a Modified barium swallow study 11/10/2022 as an outpatient at [facility] in [place]. Findings at this time demonstrated slowed mastication w some repetitive/disorganized tongue movements. trace oral residue observed, with mild residue/ pooling base of tongue, in valleculae and pyriforms. No penetration observed other than with large consecutive swallows of NTL and no aspiration was observed. Pt safely tolerated small sips and bites, however general increased pharyngeal fatigue was observed as the trials progressed. Diet recommendation: IDDSI 5 ( minced and moist) and IDDSI 0 (thin liquids), no straws. Reported by Patient/Caregiver Pain/Discomfort No Current Diet Regular (IDDSI 7) Baseline Feeding Method Independent in self-feeding The IDDSI Framework Protocol: IDDSI.1 Objective Assessment Mental Status Alert,Cooperative Oral Integrity WFL Dentition Within normal limits Lip Function Mild impairment Observation of Lips at Rest Symmetrical Pucker Reduced range of motion, Reduced strength Lip Retraction Reduced range of motion Alternating Pucker/Lip Retraction Incoordination Tongue Function Mild impairment Tongue Protrusion Reduced range of motion, Reduced strength Tongue Lateralization Incoordination Jaw Function Within normal limits Comment Facial symmetry appreciated. Dentition/dentures in fair condition, reduced ROM and coordination of lips and tongue. Voice quiet, improves w use. Food and Liquid Trials Position During Assessment Upright (90 degrees) Liquids Trialed Thin (IDDSI 0) Solid Trials Soft & Bite-sized (IDDSI 6), Regular (IDDSI 7) Administration Type Cup single sip,Cup consecutive sips Oral Impairment Mildly impaired Oral Phase Comments Pt consumed sausage links cut into small pieces and scrambled eggs with about 6 oz of thin water via cup. Oral phase characterized by adequate bite size, prolonged mastication with Pt proceeding to take another bite before swallow previous bite, mild diffuse oral residue, prolonged ap transport, difficulties with bolus formation. Pt with improved mastication time and bolus control with softer solid of scrambled eggs. For thin water Pt demonstrated adequate lip seal around cup, good oral acceptance and containment, single cup sips. Pt frequently swishing each sip of water in mouth before swallowing. Pharyngeal Impairment Mildly impaired Pharyngeal Phase Comments Pt demonstrated suspected delay in swallow and occasional suspected delay in swallow with all PO trials. Pt with 1x throat clear post swallow of thin water, however no additional coughing/ choking observed. Fatigue/Endurance Endurance WNL The IDDSI Framework Protocol: IDDSI.1 Findings Swallowing Function Oropharyngeal phase dysphagia Severity of Swallow Impairment Mildly-moderately impaired Contributing Factors to Swallow Mastication inefficiency Impairment Prognosis Good Based on Family support Comment Pt presents with mild-mod oral phase dysphagia and suspected mild pharyngeal phase dysphagia Recommendations Instrumental Assessment No Swallowing Treatment Yes Frequency While inpatient Recommended Solids Soft & Bite-sized (IDDSI 6) Recommended Liquids Thin (IDDSI 0) Other Recommendations ST recommends IDDSI 6/IDDSI 0- NO straws with the following safe swallowing strategies implemented below. Safety Precautions/Swallowing Upright position at least 30 Recommendations minutes after meals,Small bites and sips when eating, Slow rate; swallow between bites,No straw,Alternate liquids and solids,Set-up assistance Medication Recommendations As Tolerated Education Patient/Caregiver Education Described results of evaluation,Patient expressed understanding of evaluation Goals Short-term Goals STG 1: Patient will utilize safe swallowing strategies 90% of the time with minimal verbal cues in order to consume safest and most efficient least restrictive diet. STG 2: Patient will tolerate PO trials of IDDSI 6 with no clinical s/s of dysphagia 100% of the time in order to consume least restrictive diet . restrictive diet. STG 3: Patient will tolerate thin liquids with no clinical s/s of aspiration 100% of the time in order to consume least restrictive diet. Long-term Goals LTG: Patient will tolerate safest and most efficient diet with no clinical s/s of aspiration or dysphagia 100% of the time in order to consume least restrictive diet .
--- NOTE | 2023-03-02 13:19 | PM.DS.1 ---
History of Present Illness History of Present Illness Date Patient Seen: 03/02/23 Time Patient Seen: 12:15 Chief complaint: concerns of stroke Narrative: Patient presented evening of 02/26/23 to ED department with concern of transient aphasia and urinary incontinence occuring just prior to arrival. reports they ate dinner as usual and she fell asleep on the couch. She woke up and Kendall was staring off. She tried to engage him and he was only muttering and did not seem to be responding. She noticed he had an episode of urinary incontinence. She reports getting sick on February 22 and Kendall began showing symptoms yesterday of cough. She denies that he had fever, myalgias, or other complaints. Medical history is complicated by hx of NSTEMI, type 1 diabetes, and multiple CVAs occurring over the past 8 months. Discharge Providers Provider Date of admission: 02/27/23 00:18 Discharge Date: 03/02/23 Primary care physician: Asha Figueroa MD Consults: 02/27/23 01:16 Consult to Discharge Planning Routine Comment: Consult to Occupational Therapy Evaluate & Treat Comment: Physician Instructions: Evaluate and treat Consult to Physical Therapy Evaluate & Treat Comment: Physician Instructions: Evaluate and Treat 02/27/23 13:36 Consult to Home Health Routine Comment: Reason For Exam: Home health upon discharge 02/27/23 14:17 Consult to Speech Therapy Evaluate & Treat Comment: Physician Instructions: Evaluate and treat Discharge provider: Asha Figueroa MD Summary Hospital Course Discharge Diagnosis: COVID 19 pneumonia, TIA Hospital Course: Patient presented evening of 02/26/23 to ED department with concern of transient aphasia and urinary incontinence occurring just prior to arrival. reports they ate dinner as usual and she fell asleep on the couch. She woke up and Kendall was staring off. She tried to engage him and he was only muttering and did not seem to be responding. She noticed he had an episode of urinary incontinence. She reports getting sick on February 22 and Kendall began showing symptoms yesterday of cough. She denies that he had fever, myalgias, or other complaints. Medical history is complicated by hx of NSTEMI, type 1 diabetes, and multiple CVAs occurring over the past [address] brain without acute intracranial hemorrhage, but showing encephalomalacia in the right frontal lobes is increased compared to prior which appeared chronic and could represent stroke in the interval from prior head CT. So he underwent MRI 02/27 showing no acute disease. Prior stroke from June resulting in chronic medial right frontal encephalomalacia. He also had CT head and neck without intracranial arterial abnormality. His TIA symptoms improved but does feel he worse than prior. He remains incontinent of urine. His COVID symptoms improved remdesivir. He never required oxygen and remained afebrile. Status at Discharge Cognitive/behavioral status at discharge: at baseline, confused Functional status at discharge: independent ambulation Overall status at discharge: patient is progressing back to baseline Time Spent with Patient Time spent: Greater than 30 minutes Exam Vital Signs (past 8 hours): - 03/02/23 07:00 03/02/23 08:56 03/02/23 12:19 Temperature 98.1 F 98 F Pulse Rate 76 80 Respiratory Rate 18 17 Blood Pressure 129/80 130/76 Pulse Oximetry 97 97 97 Oxygen Delivery Method Room Air Oxygen Flow Rate 0 0 Oxygen Delivery Method Room Air Oxygen Flow Rate 0 Narrative Exam Narrative: Const General: comfortable, ill appearing and lethargic HENAK Head: normal to inspection Chest Chest: normal inspection of the chest Resp Effort & Inspection: normal respiratory effort and able to speak in complete sentences Skin General: no rashes or lesions noted Neuro General: patient alert and patient awake Extrem General: normal to inspection Objective Labs 02/28/23 05:00 02/28/23 05:00 [facility] Medical History (Updated 02/27/23 @ 01:14 by Fara Pulido RN) Non-ST elevation myocardial infarction (NSTEMI) Diabetes mellitus, labile Thalamic stroke Rheumatoid arthritis Anemia Cataract Diabetes History of colon polyps COPD (chronic obstructive pulmonary disease) Ingrowing toenail of left foot Surgical History History of cataract surgery Total knee replacement status Social History household members: spouse Smoking Status: Never smoker alcohol intake: former Discharge Assessment & Plan Assessment and Plan Assessment: COVID 19 pneumonia, TIA in setting of prior frontal infarcts Plan of Treatment: #COVID 19 Infection #Generalized weakness Remdesivir 200 mg IV on admission, continue 100 mg IV x 4 days for risk of severe infection. -PT/OT eval and treat -Recommend home health PT which has been obtained with the help of care management #Elevated Troponin Known hx of severe diffuse 3-vessel calcific disease including left main disease diagnosed on heart cath in September during non-ST elevation NE. Outpatient Cardiology notes recommend medical therapy as he would be extremely high risk for PCI and likely not a candidate for surgical revascularization. -continue aspirin, plavix, and metoprolol -Troponin downtrended appropriately, initial 0.157-->0.202--->0.176; likely demand ischemia #Prior R Frontal Infarct Hx of acute L BG + Thalamic Infarct with suspect cardioembolic etiology. Hx of old right frontal infarct, subacute right centrum semioval infarct. Acute/subacute ischemic infarcts in bilateral hemispheres in multiple territories with unknown etiology. Definitive cause determined, atherosclerosis as primary. -CT brain without acute intracranial hemorrhage, encephalomalacia in the right frontal lobes is increased compared to prior - appears chronic and may represent stroke in the interval from prior head CT -MRI 02/27 showing no acute disease. Prior stroke from June results in chronic medial right frontal encephalomalacia. -CT head and neck without intracranial arterial abnormality -continue aspirin and rosuvastatin -Recommend follow up with neurology to evaluate new MRI prior to April -Home Health set up #Type 1 Diabetes A1C 6.2. Home regimen lantus 14 units nightly, 1u:20 carb. -endocrinology appt this Monday 03/06 #Chronic Moderate-Large Pericardial Effusion -Chest xray 02/26 showing moderate to large left pleural effusion. Chart review indicates previous TTE with redemonstration of pericardial and pleural effusion which has been present for > 2 years based on chart review. -Chest xray 02/26 showing right basilar patchy consolidation with trace pleural effusion which may represent sequela of aspiration and/or pneumonia -Will repeat chest xray outpatient in 4 weeks #Rheumatoid Arthritis - restart hydroxychloroquine #Asthma -continue home meds Follow up with PCP 03/06, appointment made. Discharge Plan Discharge Plan Patient Disposition: Home Health Service Discharge orders & Medications Prescriptions: Continued rosuvastatin 5 mg tablet 5 mg PO DAILY aspirin 81 mg tablet,chewable 1 tab PO DAILY clopidogrel 75 mg tablet 75 mg PO DAILY metoprolol tartrate 50 mg tablet 50 mg PO BID hydroxychloroquine 200 mg tablet 200 mg PO BID insulin aspart U-100 [Novolog FlexPen U-100 Insulin] 100 unit/mL (3 mL) insulin pen See Rx Instructions .ROUTE .COMPLEX Rx Instructions: Blood sugar sliding scale 130-199 = 2 units 200-249 = 3 units 250-299 = 5 units 300-349 = 7 units 350+ = 9 units insulin glargine [Lantus Solostar U-100 Insulin] 100 unit/mL (3 mL) insulin pen 14 unit SUBCUT BEDTIME Follow up/Referrals: Asha Figueroa MD [Primary Care Provider] - Visit Report/Discharge Packet Instructions: DI for COVID-19 (Suspected or Confirmed ) Stand Alone Forms: Patient Portal/API, Stroke Signs & Symptoms Discharge Data Primary Care Provider: Asha Figueroa Discharges patient from system. Discharge Date/Time: 03/02/23 15:00
--- NOTE | 2023-03-02 13:42 | CM.DPNOTE ---
Addendum entered by JOSE Lugo 03/02/23 15:11: Nancy from [facility] reports they are able to start care with pt tomorrow, 1.9.24 SL Original Note: DCP Note COM WRITER reviewed EMR. COM WRITER did not enter room due to COVID precautions. COM WRITER met with pt spouse and provider in waiting room. Both in agreement with plan and to dc home today. COM WRITER answered insurance questions. Spouse reports has not hired [facility] yet, COM WRITER gave spouse information on various different [facility] agencies. Spouse appreciative. COM WRITER spoke with Nancy at [facility] to notify of DC. Nancy reports they will get them on the schedule as soon as able and add a COM WRITER after nursing assessment to assist in retirement planning. Plan: home with spouse support, [facility], and [facility] today. CM team will continue to follow as needed. JOSE Lugo
--- NOTE | 2023-03-02 13:44 | OT.IP.TRT ---
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 (02/27/23) Vascular dementia, moderate, without behavioral disturbance, psychotic disturbance, mood disturbance, and anxiety (02/27/23) Transient cerebral ischemic attack, unspecified (02/27/23) Non-ST elevation (NSTEMI) myocardial infarction (02/27/23) Atherosclerotic heart disease of [place] coronary artery without angina pectoris (02/27/23) Weakness (02/27/23) COVID-19 (02/27/23) Occupational Therapy Treatment Note M2 OT-IP Current Condition Start: 02/27/23 13:34 Freq: Status: Active Protocol: Document 02/27/23 12:45 [facility] (Rec: 02/27/23 14:07 [facility] [id number]) Occupational Therapy Current Condition Current Condition Evaluation Date 02/27/23 Treatment Diagnosis Covid+ Diagnosis Onset Date 02/27/23 M3 OT- IP Subjective and Pain Start: 02/27/23 13:34 Freq: Status: Active Protocol: Document 03/02/23 13:24 DIANE (Rec: 03/02/23 13:43 [facility] [id number]) OT- Subjective Occupational Therapy Visit Type Type Treatment Note Visit Start Time 11:00 Visit Stop Time 11:30 Total Visit Minutes 30 Notes Pt reclined resting in bed with spouse present on entrance of OT. Pt somewhat lethargic at start, but was agreeable to participating in OT. Occupational Therapy Visit Comments Patient Comments Pt denies any pain. Pt agreed to get to chair in preparation for lunch. Patient/Caregiver Goals Pts spouse expressed concerns with what their insurance will pay with respect to therapy on d/c. OT promised to relay her concerns to case management. OT Pain Assessment Pain When Pain Assessed At Rest Pain Present Pain Present Denied Pain M4 OT- IP ADL's Start: 02/27/23 13:34 Freq: Status: Active Protocol: Document 02/27/23 12:45 [facility] (Rec: 02/27/23 14:07 [facility] [id number]) M6 OT- IP Functional Cognition Start: 02/27/23 13:34 Freq: Status: Active Protocol: Document 03/02/23 13:24 DIANE (Rec: 03/02/23 13:43 [facility] [id number]) Cognitive Factors Limiting Selfcare Function Cognitive Ability Level of Alertness Drowsy Patient Orientation Name Memory Description Short Term Impaired,Working Impaired Cognitive Tests SLUMS Attempted to complete SLUMs with pt. Pt's aphasia made the task difficult. Pt was able to correctly state the state [place] and stated the day of the week incorrectly, but did not attempt to answer any of the other verbal questions. Pt was unable to accurately draw the clock, although he began placing numbers in the correct place. When asked to put an x in the triangle, pt does so correctly. When asked to solomon the largest shape, pt puts an x in the square but then circles the smaller rectangle. Findings are inconclusive. OT- Vision and Hearing OT- Vision Assessment Visual Acuity Glasses All The Time M7 OT- IP Mobility and Balance Start: 02/27/23 13:34 Freq: Status: Active Protocol: Document 03/02/23 13:24 KEEGANRIAKIN (Rec: 03/02/23 13:43 [facility] [id number]) OT- Bed Mobility Assessment Supine to Sit Supine to Sit Assist Minimal Assistance Scooting Scooting to Edge of Bed Minimal Assistance OT-Transfer Assessment Sit to and From Stand Sit to and from Stand Minimal Assistance Transfers Transfer Ability Minimal Assistance Technique Transfer Destination Chair Transfer Technique Stand Step Pivot Devices Transfer Assistive Devices Gait Belt,Front Wheeled Walker Comments Mobility Comments Pt performed bed mobility slowly, requiring extra time and rest while maneuvering to the EOB. Pt became fixated on his IV, OT assured pt that she would make sure it was safe during t/f to chair. Pt requires vcs for hand placement during sit<>stand, to stay within the walker, and to reach back for chair and slowly lower to sitting. OT- Balance Assessment Sitting Balance and Reactions Static Sitting Balance Ability Fair Dynamic Sitting Balance Ability Fair Standing Balance and Reactions Static Standing Balance Ability Fair Dynamic Standing Balance Ability Fair M8 OT- IP Objective Assessments Start: 02/27/23 13:34 Freq: Status: Active Protocol: Document 02/27/23 12:45 [facility] (Rec: 02/27/23 14:07 [facility] [id number]) OT Gross Range of Motion Upper Extremity Range of Motion Assessment Bilaterally Impaired OT Strength Upper Extremity Strength Assessment Bilaterally Impaired OT- Coordination Assessment Comments Coordination Comments Decreased due to arthritic changes in his hands. OT Sensation Assessment Comments Summary Comments Intact for light touch but not able to give proper name for the body part. M9 OT- IP Assessment and Plan Start: 02/27/23 13:34 Freq: Status: Active Protocol: Document 03/02/23 13:24 DIANE (Rec: 03/02/23 13:43 DIANE [id number]) OT Summary Assessment and Plan Potential Rehabilitation Potential Fair Summary Progress Towards Goals Slow Progress due to Medical Issues,Slow Progress due to Activity Tolerance,Slow Progress due to Cognition Assessment Summary Pt was lethargic initially, but perked up when asked if he would like to get up to the chair in preparation for lunch . Pt requires extra time to perform tasks as well as vcs for sequencing and safety awareness. Once up in chair, pt performed grooming on set up of his brush and oral hygiene with set up of his toothbrush. When asked if pt knew how to call the nurse he nodded his head. OT asked if he could tell her how and he said hit the red button. Pt continues to be appropriate for skilled OT services to address pt deficits and return toward PLOF. Pt was left up in chair, with all needs in reach, call light beside him, and tether alarm set. Pts nurse notified of pt's positioning as well. Goals Self-Feeding Goal Standby Assistance Grooming Goal Standby Assistance Dressing Goal Moderate Assistance Toileting Goal Moderate Assistance Bathing Goal Moderate Assistance Toilet Transfer Goal Standby Assistance Shower Transfer Goal Contact Guard Assistance Days to Meet Goals 10 Frequency of Treatment Frequency Of Treatment Once a Day Treatment Plan OT Treatment Plan ADL Training,Functional Cognition Training,Functional Mobility,Patient/Family Education,Discharge Planning Discharge Recommendations OT Discharge Recommendations Home with 15/09 Assist Available,Home Health Transportation Needs at Discharge Private Vehicle
--- NOTE | 2023-03-02 15:21 | PC.NURSE ---
Day shift: Discharge instructions gone over with patient's . Answered all questions and she stated understanding. Went over covid precautions and isolation period. PIV and tele d/c'ed prior to discharge. All belongings with patient. PCT [place] escorted patient via wheelchair to 's vehicle.
== END 2023-03-02 15:00 | disposition home health service (06) | DRG 177 ==
LOC: ED 20:38 → AC 02-27 00:28
PROVIDERS: Admitting Provider Internal Medicine; Emergency Provider Emergency Medicine; Family Provider Pediatrics; PCP Student in an Organized Health Care Education/Training Program; Visit Provider Student in an Organized Health Care Education/Training Program
DX: U07.1 COVID-19 (principal); J12.82 Pneumonia due to coronavirus disease 2019; G45.9 Transient cerebral ischemic attack, unspecified; I24.89 Other forms of acute ischemic heart disease; D84.821 Immunodeficiency due to drugs; J90 Pleural effusion, not elsewhere classified; F01.50 Vascular dementia, unspecified severity, without behavioral disturbance, psychotic disturbance, mood disturbance, and anxiety; E10.49 Type 1 diabetes mellitus with other diabetic neurological complication; I25.10 Atherosclerotic heart disease of native coronary artery without angina pectoris; M06.9 Rheumatoid arthritis, unspecified; J45.909 Unspecified asthma, uncomplicated; I25.2 Old myocardial infarction; Z79.69 Long term (current) use of other immunomodulators and immunosuppressants; Z86.73 Personal history of transient ischemic attack (TIA), and cerebral infarction without residual deficits; R05.9 Cough, unspecified; R06.02 Shortness of breath
CPT/HCPCS: 36415; 70450; 70496; 70498; 70551; 71046; 80048; 80053; 80305; 80320; 81001; 81003; 82550; 82962; 84484; 85025; 85610; 85730; 87635; 92610; 93005; 93306; 97116; 97162; 97166; 97530; 97535; 99222; 99232; 99238; 99285; C9803; J1650; J1815; Q9967

== ENCOUNTER 2023-05-31 13:18 | Emergency (ER) | payer MEDICARE, SELFPAY ==
[2023-02-27 01:16] VITALS: BMI 21.7
[2023-05-31] VITALS (12 sets, daily range): BP systolic 122–156; BP diastolic 65–81; PULSE 67–80; RESP 12–19; TEMP 36.4–37.1; O2SAT 97–100
[2023-05-31 14:02] LABS: Add Manual Diff / Slide Review NO; Basophils Absolute Auto 0 /uL (0-100); Basophils Percent Auto 0.4 % (0-2); Eosinophils Absolute Auto 500 /uL (0-450); Eosinophils Percent Auto 5.1 % (2-4); Hematocrit 35.4 % (41-53); Hemoglobin 11.9 g/dL (13.5-17.5); Lymphocytes Absolute Auto 700 /uL (1100-4500); Lymphocytes Percent Auto 7.7 % (25-40); Mean Corpuscular HGB Conc 33.6 % (30-36); Mean Corpuscular Hemoglobin 29.5 PG (26-34); Mean Corpuscular Volume 87.7 fL (80-100); Monocytes Absolute Auto 700 /uL (0-900); Monocytes Percent Auto 7.8 % (3-14); Neutrophils Absolute Auto 7100 /uL (1500-7000); Platelet Count 275 X10^3/uL (150-400); Red Blood Cell Count 4.04 X10^6/uL (4.5-5.9)
[2023-05-31 14:12] LABS: Alanine Aminotransferase 38 IU/L (<50); Albumin 3.6 g/dL (3.5-5.0); Albumin Globulin Ratio 0.8 (1.0-2.8); Alkaline Phosphatase 99 U/L (38-126); Aspartate Aminotransferase 41 IU/L (17-59); BUN Creatinine Ratio 46.4 (6-22); Bilirubin Total 0.6 mg/dL (0.2-1.3); Blood Urea Nitrogen 45 mg/dL (9-20); Calcium 9.4 mg/dL (8.4-10.2); Carbon Dioxide 29 mmol/L (22-32); Chloride 103 mmol/L (98-107); Estimated Glomerular Filt Rate > 60 mL/min (>60); Globulin 4.6 g/dL (1.7-4.1); Glucose 118 mg/dL (80-110); HEMOLYSIS 15 (0-50); Lipase 38 U/L (23-300); Potassium 4.5 mmol/L (3.4-5.1); Sodium 136 mmol/L (137-145); Total Protein 8.2 g/dL (6.3-8.2)
--- NOTE | 2023-05-31 14:48 | ED.ABDPAIN ---
HPI - Abdominal Pain General Chief Complaint: Abdominal Pain Stated Complaint: Abd Pain LRQ Time Seen by Provider: 05/31/23 14:47 Source: family Mode of arrival: Wheelchair Limitations: no limitations History of Present Illness HPI narrative: 83-year-old male with history of transient aphasia, urinary incontinence, NSTEMI, diabetes and prior stroke who presents with complaint of abdominal pain more in the right upper quadrant. Patient has also been somewhat distended in his abdomen. Patient has not had any fevers or chills. She does not typically indicate any pain but does today in the right upper quadrant. Patient has not had any nausea or vomiting. No cough cold or congestion. He has had some aspiration in the past. Did eat around 11 today did not seem to have any obvious problems. Typically has some mild constipation uses suppository 1 or 2 times monthly. gave him 2 suppositories yesterday and he had some slimy mucousy stool but no significant amount of stool. His last regular bowel movement was last . No urinary symptoms. Patient did have a gastric tube in the past that was removed in December was present from September to December. Patient is on clopidogrel, takes metoprolol, statin, hydroxychloroquine, colchicine daily for fluid around his heart and lungs. Has had prior knee surgery as well as gastric her PEG tube. No known drug allergies. No tobacco, alcohol or recreational drugs. Dr. Figueroa as his primary care physician. Does have an abdominal ultrasound and scrotal ultrasound ordered for the next 2 weeks. Related Data Home Medications Medication Instructions Recorded Confirmed insulin aspart U-100 100 unit/mL See Rx Instructions .Route .COMPLEX 04/04/20 05/29/23 (3 mL) subcutaneous pen (Novolog FlexPen U-100 Insulin aspart) insulin glargine 100 unit/mL (3 14 unit SUBCUT BEDTIME 04/04/20 05/29/23 mL) subcutaneous pen (Lantus Solostar U-100 Insulin) aspirin 81 mg chewable tablet 1 tab PO DAILY 10/03/22 05/29/23 clopidogrel 75 mg tablet 75 mg PO DAILY 10/03/22 05/29/23 metoprolol tartrate 50 mg tablet 50 mg PO BID 10/03/22 05/29/23 rosuvastatin 5 mg tablet 5 mg PO DAILY 10/03/22 05/29/23 colchicine 0.6 mg capsule mg PO reduce fluid surrounding 03/19/23 05/29/23 heart Previous Rx's Medication Instructions Recorded hydroxychloroquine 200 mg tablet 200 mg PO BID #180 tabs 04/27/23 Allergies Allergy/AdvReac Type Severity Reaction Status Date / Time shellfish derived AdvReac Nausea Verified 05/31/23 13:25 Review of Systems Review of Systems ROS Unobtainable: All systems reviewed & are unremarkable except as noted in HPI and below Patient History Medical History Non-ST elevation myocardial infarction (NSTEMI) Diabetes mellitus, labile Thalamic stroke Rheumatoid arthritis Anemia Cataract Diabetes History of colon polyps COPD (chronic obstructive pulmonary disease) Ingrowing toenail of left foot Surgical History History of cataract surgery Total knee replacement status Social History household members: spouse Smoking Status: Never smoker alcohol intake: former Smoking Status: Never smoker alcohol intake frequency: other Substance Use Type: does not use Exam Narrative Exam Narrative: GENERAL: Alert and oriented, male in mild distress, patient able to answer most questions but does give more detailed history HEENT: Head normocephalic, atraumatic, EOMI, pupils reactive, face symmetric, moist mucous membranes NECK: Supple, full range of motion CARDIOVASCULAR: Regular rate and rhythm without murmurs, rubs or gallops. RESPIRATORY: Breath sounds equal bilaterally, no wheezes rales or rhonchi. ABDOMEN: Soft, mild right upper quadrant tenderness. Mildly distended. Normoactive bowel sounds all 4 quadrants. No guarding or rebound, rigidity, no mass : No CVA tenderness EXTREMITIES: Normal range of motion, no clubbing or edema. Neurovascularly intact NEUROLOGICAL: Cranial nerves II through XII grossly intact. Moving all extremities SKIN: Warm, dry, no petechiae, no rashes or lesions. Initial Vital Signs Initial Vital Signs: Vital Signs Temperature 97.6 F 05/31/23 13:25 Pulse Rate 71 05/31/23 13:25 Respiratory Rate 18 05/31/23 13:25 Blood Pressure 133/66 05/31/23 13:25 Pulse Oximetry 100 05/31/23 13:25 Oxygen Delivery Method Room Air 05/31/23 13:25 Course Orders Ordered: ED Orders 05/31/23 13:34 EKG-12 Lead Stat 05/31/23 13:48 Complete Blood Count AUTO DIFF Stat Comprehensive Metabolic Panel Stat Lipase Stat 05/31/23 15:58 CT abdomen pelvis w con Stat 05/31/23 16:21 Urine Microscopic Stat Discontinued Medications Sodium Chloride (Normal Saline 0.9%) 1,000 mls @ 1,000 mls/hr IV BOLUS ONE Stop: 05/31/23 16:57 Last Infusion: 05/31/23 17:36 Dose: Infused Documented By: Admin: 05/31/23 16:39 Dose: 1,000 mls/hr Documented By: REY Ondansetron HCl (Ondansetron 4 Mg Odt) 4 mg PO NOW PRN PRN Reason: Nausea And Vomiting Ondansetron HCl (Ondansetron 4 Mg/2 Ml Inj) 4 mg IV NOW PRN PRN Reason: Nausea And Vomiting Vital Signs Vital signs: Vital Signs - 8 hr 05/31/23 13:25 05/31/23 13:53 05/31/23 13:54 Temperature 97.6 F Pulse Rate 71 68 67 Respiratory Rate 18 18 17 Blood Pressure 133/66 Pulse Oximetry 100 98 99 Oxygen Delivery Method Room Air 05/31/23 13:54 05/31/23 14:00 05/31/23 14:00 Temperature Pulse Rate 68 Respiratory Rate 18 Blood Pressure 128/65 122/68 Pulse Oximetry 98 Oxygen Delivery Method 05/31/23 14:30 05/31/23 14:30 05/31/23 15:00 Temperature Pulse Rate 67 Respiratory Rate 17 Blood Pressure 139/72 148/81 H Pulse Oximetry 97 Oxygen Delivery Method 05/31/23 15:00 05/31/23 15:30 05/31/23 15:30 Temperature Pulse Rate 67 68 Respiratory Rate 15 16 Blood Pressure 135/71 Pulse Oximetry 98 99 Oxygen Delivery Method 05/31/23 16:00 05/31/23 16:00 05/31/23 16:35 Temperature Pulse Rate 68 76 Respiratory Rate 15 Blood Pressure 136/69 Pulse Oximetry 99 Oxygen Delivery Method 05/31/23 16:36 05/31/23 16:36 05/31/23 17:00 Temperature Pulse Rate 73 70 Respiratory Rate 14 12 Blood Pressure 150/71 H Pulse Oximetry 99 98 Oxygen Delivery Method 05/31/23 17:00 05/31/23 17:30 05/31/23 17:30 Temperature 98.7 F Pulse Rate 74 80 Respiratory Rate 19 16 Blood Pressure 143/73 H 156/80 H Pulse Oximetry 98 98 Oxygen Delivery Method MDM - Abdominal Pain Lab Data 05/31/23 13:48 05/31/23 13:48 Labs: Lab Results 05/31/23 05/31/23 Range/Units 13:48 16:21 WBC 9.0 (4.5-11.0) X10^3/uL RBC 4.04 L (4.5-5.9) X10^6/uL Hgb 11.9 L (13.5-17.5) g/dL Hct 35.4 L (41-53) % MCV 87.7 (80-100) fL MCH 29.5 (26-34) PG MCHC 33.6 (30-36) % RDW 17.0 H (11.6-14.8) % Plt Count 275 (150-400) X10^3/uL Neut % (Auto) 79.0 H (50-75) % Lymph % (Auto) 7.7 L (25-40) % [place] % (Auto) 7.8 (3-14) % Eos % (Auto) 5.1 H (2-4) % Baso % (Auto) 0.4 (0-2) % Neut # (Auto) 7100 H (7093-4946) /uL Lymph # (Auto) 700 L (8803-0379) /uL [place] # (Auto) 700 (0-900) /uL Eos # (Auto) 500 H (0-450) /uL Baso # (Auto) 0 (0-100) /uL Sodium 136 L (137-145) mmol/L Potassium 4.5 (3.4-5.1) mmol/L Chloride 103 (98-107) mmol/L Carbon Dioxide 29 (22-32) mmol/L BUN 45 H (9-20) mg/dL Creatinine 0.97 (0.66-1.25) mg/dL Estimated GFR > 60 (>60) mL/min BUN/Creatinine Ratio 46.4 H (6-22) Glucose 118 H (80-110) mg/dL Calcium 9.4 (8.4-10.2) mg/dL Total Bilirubin 0.6 (0.2-1.3) mg/dL AST 41 (17-59) IU/L ALT 38 (<50) IU/L Alkaline Phosphatase 99 (38-126) U/L Total Protein 8.2 (6.3-8.2) g/dL Albumin 3.6 (3.5-5.0) g/dL Globulin 4.6 H (1.7-4.1) g/dL Albumin/Globulin Ratio 0.8 L (1.0-2.8) Lipase 38 (23-300) U/L Urine RBC 0-1/hpf (0-5/HPF) Urine WBC None seen (0-5/HPF) Ur Squamous Epith Cells None seen (0-5/HPF) Ur Renal Epithelial Cell 0-1/hpf (0-1/HPF) Urine Bacteria None seen (None) Ur Culture Indicated? Cult not indicated Vol Urine Centrifuged 10ml (spun) Point of care testing: Point of Care Testing Glucose POC 102 Urine Dip Bedside Urine Glucose Negative Bedside Urine Bilirubin - Negative Bedside Urine Ketone - Negative Urine Specific [place] 1.020 Bedside Urine Occult Blood +/- Bedside Urine pH 5.5 Bedside Urine Protein + 30 Bedside Urine Urobilinogen - Negative Bedside Urine Nitrite - Negative Bedside Urine Leukocytes - Negative Esterase Imaging Data CT scan - abdomen/pelvis: Radiologist's Impression: Close Abdomen/Pelvis CT (Signed) Jason Samuel - 05/31/23 [place] [address] CT Scan Report Signed Patient: Kendall Lopez MR#: [id number] : 1940 Acct:[id number] Age/Sex: 83 / M Date of Service: 05/31/23 Loc: ED Accession Number: [id number] Procedure: CT abdomen pelvis w con Ordering Provider: Mali Delaney D.O. PROCEDURE: CT ABDOMEN PELVIS W CON INDICATIONS: abd distended, abd pain RUQ, constipation, last BM TECHNIQUE: After the administration of intravenous contrast, axial sections acquired from the lung bases to the pubic symphysis. Coronal and sagittal reformats were performed. For radiation dose reduction, the following was used: automated exposure control, adjustment of mA and/or kV according to patient size. COMPARISON: None. FINDINGS: Lower thorax: Large left pleural effusion associated with pericardial effusion measuring 1.6 cm in thickness. Gynecomastia. Dense coronary artery vascular calcification Liver: Normal in size and attenuation. No contour deformity present. Biliary system: No calcified cholelithiasis or pericholecystic inflammation. No intra or extrahepatic bile duct dilatation. Pancreas: Unremarkable without mass or inflammation evident. Spleen: Normal in size and density. Adrenals: Normal morphology and density. Reproductive system: Unremarkable as visualized. Urinary system: Normal renal size and attenuation. No renal calculi, hydronephrosis, or solid mass present. Urinary bladder unremarkable. Gastrointestinal system: The bowel is unremarkable without evidence of bowel obstruction or inflammation. The stomach appears unremarkable. Moderate fecal debris throughout the colon Appendix: No findings to suggest acute appendicitis. Peritoneal spaces: No mesenteric or retroperitoneal adenopathy. No free air. No free fluid. Vasculature: The IVC, aorta and iliac vasculature are unremarkable. Diffuse small vessel atherosclerotic vascular calcification Abdominal wall: Abdominal wall intact without evidence of ventral or inguinal hernias. Musculoskeletal: Normal bone mineralization. Degenerative disc disease and arthropathy noted in lower lumbar spine. No acute fractures. Convex left thoracolumbar scoliosis present. T11 compression fracture, uncertain age. IMPRESSION: 1. Large left and smaller right pleural effusion associated with pericardial effusion as well. 2. Large amount of fecal debris throughout the colon 3. Degenerative disc disease, thoracolumbar levoscoliosis, and T11 compression fracture, uncertain age Approved by: Jason Samuel M.D. on 05/31/2023 at 16:11 ECG Data Attestation: I personally reviewed and interpreted this ECG as follows: Prior ECG tracings: available for review Interpretation: Sinus rhythm rate of 68 UT 186 QRS of [address]TC [address] No acute [address] changes appreciated patient has prior from 02/26/2023 which appears similar. [facility] Narrative Medical decision making narrative: 83-year-old male with history of some expressive aphasia at baseline, patient has been somewhat distended for awhile but then developed some abdominal pain particularly in the right upper quadrant. Patient is mildly tender on examination. Vitals are overall appropriate patient is nontoxic appearing. Labs show white count of 9 hemoglobin 11.9 platelets 275, glucose of 118 sodium 136 potassium of 4.5 chloride of 103 bicarb of 29, BUN slightly elevated at 45 creatinine 0.93, negative LFTs globulin 4.6. Urine Based on patient's history he did have a PEG or gastric tube at 1 point he is mildly distended with right upper quadrant tenderness CT abdomen pelvis was obtained to evaluate for gallbladder, obstruction she has not had a bowel movement for 3-[address] abd/pelvis: Shows large left and small right pleural effusion with associated pericardial effusion. Patient and were already aware of this and its presence. Large amount of fecal debris throughout the colon and degenerative disc disease with thoracolumbar levoscoliosis and T11 compression fracture but no obstructive changes, no obvious changes with infection. Biliary system otherwise appears unremarkable. Discussed with patient and family would continue with stool softeners and hydration. Patient did receive a 1L fluids. Discharge Plan Departure Patient Disposition: Home Clinical Impression: Constipation, Pleural effusion, Compression fracture of T11 vertebra Instructions: DI for Constipation Activity Restrictions/Additional Instructions: Your imaging today does show a large left and small right pleural effusion as well as pericardial effusion on your imaging. There was quite a bit of stool throughout the colon likely contributing to the distention but no signs of perforation. You also have degenerative changes to the spine and a T11 compression fracture. I would recommend restarting your senna daily. You may continue with suppository once daily as needed. I would recommend increasing hydration for the short term. Please return for fevers new or worsening abdominal back or flank pain, vomiting, patient was not passing gas or having bowel movements for more than 24 hours, inability to urinate or other new or concerning changes. Prescriptions: No Action colchicine 0.6 mg capsule PO hydroxychloroquine 200 mg tablet 200 mg PO BID Qty: 180 3RF rosuvastatin 5 mg tablet 5 mg PO DAILY aspirin 81 mg tablet,chewable 1 tab PO DAILY clopidogrel 75 mg tablet 75 mg PO DAILY metoprolol tartrate 50 mg tablet 50 mg PO BID insulin aspart U-100 [Novolog FlexPen U-100 Insulin] 100 unit/mL (3 mL) insulin pen See Rx Instructions .ROUTE .COMPLEX Rx Instructions: Blood sugar sliding scale 130-199 = 2 units 200-249 = 3 units 250-299 = 5 units 300-349 = 7 units 350+ = 9 units insulin glargine [Lantus Solostar U-100 Insulin] 100 unit/mL (3 mL) insulin pen 14 unit SUBCUT BEDTIME Referrals: Asha Figueroa MD [Primary Care Provider] - Stand Alone Forms: Patient Portal/API
--- NOTE | 2023-05-31 15:58 | DI.CT.S_ITS ---
PROCEDURE: CT ABDOMEN PELVIS W CON INDICATIONS: abd distended, abd pain RUQ, constipation, last BM TECHNIQUE: After the administration of intravenous contrast, axial sections acquired from the lung bases to the pubic symphysis. Coronal and sagittal reformats were performed. For radiation dose reduction, the following was used: automated exposure control, adjustment of mA and/or kV according to patient size. COMPARISON: None. FINDINGS: Lower thorax: Large left pleural effusion associated with pericardial effusion measuring 1.6 cm in thickness. Gynecomastia. Dense coronary artery vascular calcification Liver: Normal in size and attenuation. No contour deformity present. Biliary system: No calcified cholelithiasis or pericholecystic inflammation. No intra or extrahepatic bile duct dilatation. Pancreas: Unremarkable without mass or inflammation evident. Spleen: Normal in size and density. Adrenals: Normal morphology and density. Reproductive system: Unremarkable as visualized. Urinary system: Normal renal size and attenuation. No renal calculi, hydronephrosis, or solid mass present. Urinary bladder unremarkable. Gastrointestinal system: The bowel is unremarkable without evidence of bowel obstruction or inflammation. The stomach appears unremarkable. Moderate fecal debris throughout the colon Appendix: No findings to suggest acute appendicitis. Peritoneal spaces: No mesenteric or retroperitoneal adenopathy. No free air. No free fluid. Vasculature: The IVC, aorta and iliac vasculature are unremarkable. Diffuse small vessel atherosclerotic vascular calcification Abdominal wall: Abdominal wall intact without evidence of ventral or inguinal hernias. Musculoskeletal: Normal bone mineralization. Degenerative disc disease and arthropathy noted in lower lumbar spine. No acute fractures. Convex left thoracolumbar scoliosis present. T11 compression fracture, uncertain age. IMPRESSION: 1. Large left and smaller right pleural effusion associated with pericardial effusion as well. 2. Large amount of fecal debris throughout the colon 3. Degenerative disc disease, thoracolumbar levoscoliosis, and T11 compression fracture, uncertain age Approved by: Jason Samuel M.D. on 05/31/2023 at 16:11
[2023-05-31] MEDS: SODIUM CHLORIDE 0.9% 1,000 ML 1000 ML IV (16:39)
[2023-05-31 17:46] LABS: Bacteria Urine None Seen; Culture Indicated Urine Cult Not Indicated; Renal Epithelial Cells Urine 0-1/HPF (0-1/HPF); Squamous Epithelial Cell Urine None Seen (0-5/HPF); Urine Volume 10mL (spun); WBC Urine None Seen (0-5/HPF)
[2023-05-31 17:47] LABS: RBC Urine 0-1/HPF (0-5/HPF)
== END 2023-05-31 17:56 | disposition home or self-care (01) ==
PROVIDERS: Emergency Provider Emergency Medicine; Family Provider Pediatrics; PCP Student in an Organized Health Care Education/Training Program
DX: K59.00 Constipation, unspecified (principal); J90 Pleural effusion, not elsewhere classified; S22.080A Wedge compression fracture of T11-T12 vertebra, initial encounter for closed fracture
CPT/HCPCS: 36415; 74177; 80053; 81003; 81015; 82962; 83690; 85025; 93005; 93010; 96360; 99284; Q9967

== ENCOUNTER 2023-06-02 06:41 | Emergency (ER) | payer MEDICARE, SELFPAY ==
[2023-02-27 01:16] VITALS: BMI 21.7
[2023-06-02] VITALS (12 sets, daily range): BP systolic 134–137; BP diastolic 60–63; PULSE 70–75; RESP 14–17; TEMP 36.8; O2SAT 97–100; BMI 20.6
--- NOTE | 2023-06-02 07:23 | PC.NURSE ---
Pt states last bowel movement was . Pt abdomen soft, tender, and non-distended. Pt bowel sounds auscultated and heard in all four quadrants. Pt states he has not had great intake; pt has been taking senna at home and suppositories--no stool softeners.
--- NOTE | 2023-06-02 07:36 | DI.RAD.S_ITS ---
PROCEDURE: XR ABDOMEN 1V INDICATIONS: rt side pain TECHNIQUE: One view of the abdomen acquired. COMPARISON: [facility], CT, CT ABDOMEN PELVIS W CON, 05/31/2023, 16:19. FINDINGS: Surgical changes and devices: None. Bowel: Bowel gas pattern is nonobstructive. Prominent colonic stool. Soft tissues: No suspicious abdominal calcifications. Visualized solid organ contours appear normal in size. Bones: No suspicious bony lesions. Scoliotic curvature. IMPRESSION: Prominent colonic stool without obstruction. Dictated by: Yany Dunne M.D. on 06/02/2023 at 8:15 Approved by: Yany Dunne M.D. on 06/02/2023 at 8:15
--- NOTE | 2023-06-02 08:03 | ED.ABDPAIN ---
HPI - Abdominal Pain General Chief Complaint: Abdominal Pain Stated Complaint: hasn't had a bowel movement for 5 days Time Seen by Provider: 06/02/23 06:42 Source: patient and family Mode of arrival: Family Vehicle History of Present Illness HPI narrative: Patient here with again. Complains of right-sided abdominal pain. Patient seen here 2 days ago for the same complaint. CT imaging did show stool burden. Patient has not had bowel movement for 5 days. Has not tried enema. Did try a suppository without success. Patient usually does not have a problem with constipation. Pain worse with palpation. No black or bloody stools. Patient is on Plavix. Denies any chest pain or shortness of breath. Related Data Home Medications Medication Instructions Recorded Confirmed insulin aspart U-100 100 unit/mL See Rx Instructions .Route .COMPLEX 04/04/20 05/29/23 (3 mL) subcutaneous pen (Novolog FlexPen U-100 Insulin aspart) insulin glargine 100 unit/mL (3 14 unit SUBCUT BEDTIME 04/04/20 05/29/23 mL) subcutaneous pen (Lantus Solostar U-100 Insulin) aspirin 81 mg chewable tablet 1 tab PO DAILY 10/03/22 05/29/23 clopidogrel 75 mg tablet 75 mg PO DAILY 10/03/22 05/29/23 metoprolol tartrate 50 mg tablet 50 mg PO BID 10/03/22 05/29/23 rosuvastatin 5 mg tablet 5 mg PO DAILY 10/03/22 05/29/23 colchicine 0.6 mg capsule mg PO reduce fluid surrounding 03/19/23 05/29/23 heart Previous Rx's Medication Instructions Recorded hydroxychloroquine 200 mg tablet 200 mg PO BID #180 tabs 04/27/23 Allergies Allergy/AdvReac Type Severity Reaction Status Date / Time shellfish derived AdvReac Nausea Verified 05/31/23 13:25 Review of Systems Review of Systems Narrative: GENERAL: negative chills, fatigue, malaise, fever, sweats. HEENT: negative sinus pain, ear pain, sore throat RESPIRATORY: negative dyspnea, cough CARDIOVASCULAR: negative chest pain, palpitations GASTROINTESTINAL: negative nausea, vomiting, positive abdominal pain, negative bloody stools, positive constipation : negative dysuria, frequency, hematuria MUSCULOSKELETAL: negative muscle or bony pain SKIN: negative rash, skin lesions NEUROLOGIC: negative weakness, numbness ROS Unobtainable: All systems reviewed & are unremarkable except as noted in HPI and below Patient History Medical History Non-ST elevation myocardial infarction (NSTEMI) Diabetes mellitus, labile Thalamic stroke Rheumatoid arthritis Anemia Cataract Diabetes History of colon polyps COPD (chronic obstructive pulmonary disease) Ingrowing toenail of left foot Surgical History History of cataract surgery Total knee replacement status Social History household members: spouse Smoking Status: Never smoker alcohol intake: former Smoking Status: Never smoker alcohol intake frequency: other Substance Use Type: does not use Exam Narrative Exam Narrative: GENERAL: in no distress, not toxic not dyspneic HEAD: Normocephalic. EYES: Pupils equal round ENT: Mucous membranes moist. NECK: Trachea midline. CARDIOVASCULAR: Regular rate and rhythm RESPIRATORY: Clear to auscultation. Breath sounds equal bilaterally. No wheezes, rales, or rhonchi. GASTROINTESTINAL: Abdomen soft, abdomen is soft and flat, there is reproducible right upper quadrant and right lower quadrant tenderness. No CVA tenderness. No pain out of portion exam. Bowel sounds are present. No peritoneal signs. EXTREMITIES: No gross deformities. BACK: No flank tenderness. NEURO: AOx4. SKIN: Warm and dry PSYCH: Not anxious, is cooperative Initial Vital Signs Initial Vital Signs: Vital Signs Temperature 98.3 F 06/02/23 06:42 Pulse Rate 72 06/02/23 06:42 Respiratory Rate 17 06/02/23 06:42 Blood Pressure 137/63 06/02/23 06:42 Pulse Oximetry 97 06/02/23 06:42 Oxygen Delivery Method Room Air 06/02/23 06:42 Course Orders Ordered: Discontinued Medications Sodium Chloride (Normal Saline 0.9%) 500 mls @ 1,000 mls/hr IV BOLUS ONE Stop: 06/02/23 08:04 Last Infusion: 06/02/23 08:44 Dose: Infused Documented By: Admin: 06/02/23 08:23 Dose: 1,000 mls/hr Documented By: MORENO Magnesium Citrate (Magnesium Citrate 300 Ml Solution) 300 ml PO NOW ONE Stop: 04/09/24 09:37 Last Admin: 06/02/23 10:19 Dose: 300 ml Documented By: MORENO Polyethylene Glycol/Electrolytes ([id number]/Sod Sulf,Bicarb,Cl/Kcl 4,000 Ml Solution) 2,000 ml PO NOW ONE Stop: 06/02/23 13:08 Last Admin: 06/02/23 13:52 Dose: 2,000 ml Documented By: CAPO Vital Signs Vital signs: Vital Signs - 8 hr 06/02/23 06:42 06/02/23 07:17 06/02/23 07:30 Temperature 98.3 F Pulse Rate 72 75 71 Respiratory Rate 17 Blood Pressure 137/63 Pulse Oximetry 97 99 99 Oxygen Delivery Method Room Air 06/02/23 08:00 06/02/23 08:30 06/02/23 09:00 Temperature Pulse Rate 70 72 71 Respiratory Rate Blood Pressure Pulse Oximetry 99 99 100 Oxygen Delivery Method 06/02/23 09:30 06/02/23 10:00 06/02/23 10:30 Temperature Pulse Rate 70 71 71 Respiratory Rate Blood Pressure Pulse Oximetry 99 98 98 Oxygen Delivery Method 06/02/23 11:30 06/02/23 12:00 Temperature Pulse Rate 71 70 Respiratory Rate Blood Pressure Pulse Oximetry 98 99 Oxygen Delivery Method MDM - Abdominal Pain Lab Data 06/02/23 08:12 06/02/23 08:12 Labs: Lab Results 06/02/23 Range/Units 08:12 WBC 7.0 (4.5-11.0) X10^3/uL RBC 3.78 L (4.5-5.9) X10^6/uL Hgb 11.1 L (13.5-17.5) g/dL Hct 32.8 L (41-53) % MCV 86.9 (80-100) fL MCH 29.3 (26-34) PG MCHC 33.7 (30-36) % RDW 16.9 H (11.6-14.8) % Plt Count 243 (150-400) X10^3/uL Neut % (Auto) 75.2 H (50-75) % Lymph % (Auto) 8.2 L (25-40) % Wagoner % (Auto) 9.7 (3-14) % Eos % (Auto) 6.2 H (2-4) % Baso % (Auto) 0.7 (0-2) % Neut # (Auto) 5200 (9475-7430) /uL Lymph # (Auto) 600 L (6656-7311) /uL Wagoner # (Auto) 700 (0-900) /uL Eos # (Auto) 400 (0-450) /uL Baso # (Auto) 0 (0-100) /uL Sodium 135 L (137-145) mmol/L Potassium 4.1 (3.4-5.1) mmol/L Chloride 106 (98-107) mmol/L Carbon Dioxide 25 (22-32) mmol/L BUN 31 H (9-20) mg/dL Creatinine 0.97 (0.66-1.25) mg/dL Estimated GFR > 60 (>60) mL/min BUN/Creatinine Ratio 32.0 H (6-22) Glucose 78 L (80-110) mg/dL Calcium 8.9 (8.4-10.2) mg/dL Total Bilirubin 0.5 (0.2-1.3) mg/dL AST 38 (17-59) IU/L ALT 35 (<50) IU/L Alkaline Phosphatase 87 (38-126) U/L Total Protein 7.2 (6.3-8.2) g/dL Albumin 3.1 L (3.5-5.0) g/dL Globulin 4.1 (1.7-4.1) g/dL Albumin/Globulin Ratio 0.8 L (1.0-2.8) Lipase 23 (23-300) U/L Point of care testing: Point of Care Testing Glucose POC 193 Imaging Data Abdominal x-ray: Radiologist's Impression: [address] [address] XRay Report Signed Patient: Kendall Lopez MR#: [id number] : 1940 Acct:[id number] Age/Sex: 83 / M Date of Service: 06/02/23 Loc: ED Accession Number: [id number] Procedure: XR abdomen 1V Ordering Provider: Bryant Andrade MD PROCEDURE: XR ABDOMEN 1V INDICATIONS: rt side pain TECHNIQUE: One view of the abdomen acquired. COMPARISON: Located Within [facility], CT, CT ABDOMEN PELVIS W CON, 05/31/2023, 16:19. FINDINGS: Surgical changes and devices: None. Bowel: Bowel gas pattern is nonobstructive. Prominent colonic stool. Soft tissues: No suspicious abdominal calcifications. Visualized solid organ contours appear normal in size. Bones: No suspicious bony lesions. Scoliotic curvature. IMPRESSION: Prominent colonic stool without obstruction. Dictated by: Yany Dunne M.D. on 06/02/2023 at 8:15 Approved by: Yany Dunne M.D. on 06/02/2023 at 8:15 [facility] Narrative Medical decision making narrative: Patient here with again. Complains of right-sided abdominal pain. Patient seen here 2 days ago for the same complaint. CT imaging did show stool burden. Patient has not had bowel movement for 5 days. Has not tried enema. Did try a suppository without success. Patient usually does not have a problem with constipation. Pain worse with palpation. No black or bloody stools. Patient is on Plavix. Denies any chest pain or shortness of breath. After history and exam CBC CMP lipase urinalysis x-ray abdomen normal saline MDM Medical records reviewed: ER visit CT imaging done here 2 days ago Differential considered: Includes but not limited to Lab Test results independently reviewed as above. Pertinent findings: WBC 7.0 sodium 135 potassium 4.1 GFR greater than 60 glucose 78 AST 38 ALT 35 Imaging studies independently reviewed: X-ray abdomen. Prominent stool No repeat CT indicated. Labs are reassuring. Pain pattern essentially unchanged Treatments: Normal saline/enema/magnesium citrate Re-evaluations: 1:42 p.m.. Updated patient and , despite magnesium citrate as well as enemas here unable to provide stool output however appropriate for discharge home for attempts with GoLYTELY. They do agree with this plan. They will return. Discussion: Appropriate for discharge home for trial of GoLYTELY for constipation. Patient in no distress. Laboratory studies are reassuring. No repeat CT imaging indicated. Patient and agree try for bowel movements at home with GoLYTELY. Return precautions reviewed. They desire discharge home Diagnosis: Constipation Discharge Plan Departure Patient Disposition: Home Clinical Impression: Constipation Qualifiers: Constipation type: unspecified constipation type Qualified Code(s): K59.00 - Constipation, unspecified Instructions: DI for Constipation Activity Restrictions/Additional Instructions: Your radiograph imaging in the past couple of days does show constipation. Please start taking the GoLYTELY provided for you to take home, you may start drinking this for effect/bowel movements. You do not need to take the whole a mount if you are starting to have bowel movements. Return if worse if any questions or concerns. Return if no bowel movement overnight. Prescriptions: No Action colchicine 0.6 mg capsule PO hydroxychloroquine 200 mg tablet 200 mg PO BID Qty: 180 3RF rosuvastatin 5 mg tablet 5 mg PO DAILY aspirin 81 mg tablet,chewable 1 tab PO DAILY clopidogrel 75 mg tablet 75 mg PO DAILY metoprolol tartrate 50 mg tablet 50 mg PO BID insulin aspart U-100 [Novolog FlexPen U-100 Insulin] 100 unit/mL (3 mL) insulin pen See Rx Instructions .ROUTE .COMPLEX Rx Instructions: Blood sugar sliding scale 130-199 = 2 units 200-249 = 3 units 250-299 = 5 units 300-349 = 7 units 350+ = 9 units insulin glargine [Lantus Solostar U-100 Insulin] 100 unit/mL (3 mL) insulin pen 14 unit SUBCUT BEDTIME Referrals: Asha Figueroa MD [Primary Care Provider] - Stand Alone Forms: Patient Portal/API
[2023-06-02 08:18] LABS: Add Manual Diff / Slide Review NO; Basophils Absolute Auto 0 /uL (0-100); Basophils Percent Auto 0.7 % (0-2); Eosinophils Absolute Auto 400 /uL (0-450); Eosinophils Percent Auto 6.2 % (2-4); Hematocrit 32.8 % (41-53); Hemoglobin 11.1 g/dL (13.5-17.5); Lymphocytes Absolute Auto 600 /uL (1100-4500); Lymphocytes Percent Auto 8.2 % (25-40); Mean Corpuscular HGB Conc 33.7 % (30-36); Mean Corpuscular Hemoglobin 29.3 PG (26-34); Mean Corpuscular Volume 86.9 fL (80-100); Monocytes Absolute Auto 700 /uL (0-900); Monocytes Percent Auto 9.7 % (3-14); Neutrophils Absolute Auto 5200 /uL (1500-7000); Neutrophils Percent Auto 75.2 % (50-75); Platelet Count 243 X10^3/uL (150-400); Red Blood Cell Count 3.78 X10^6/uL (4.5-5.9); Red Cell Distribution Width 16.9 % (11.6-14.8)
[2023-06-02] MEDS: SODIUM CHLORIDE 0.9% 500 ML 1000 ML IV (08:23)
[2023-06-02 08:34] LABS: Alanine Aminotransferase 35 IU/L (<50); Albumin 3.1 g/dL (3.5-5.0); Albumin Globulin Ratio 0.8 (1.0-2.8); Alkaline Phosphatase 87 U/L (38-126); Aspartate Aminotransferase 38 IU/L (17-59); Bilirubin Total 0.5 mg/dL (0.2-1.3); Blood Urea Nitrogen 31 mg/dL (9-20); Calcium 8.9 mg/dL (8.4-10.2); Carbon Dioxide 25 mmol/L (22-32); Chloride 106 mmol/L (98-107); Estimated Glomerular Filt Rate > 60 mL/min (>60); Globulin 4.1 g/dL (1.7-4.1); Glucose 78 mg/dL (80-110); HEMOLYSIS < 15 (0-50); Lipase 23 U/L (23-300); Potassium 4.1 mmol/L (3.4-5.1); Sodium 135 mmol/L (137-145); Total Protein 7.2 g/dL (6.3-8.2)
[2023-06-02] MEDS: MAGNESIUM CITRATE 300 ML SOLUTION PO (10:19)
--- NOTE | 2023-06-02 11:17 | PC.NURSE ---
Reassess; no change
[2023-06-02] MEDS: PEG3350/SOD SULF,BICARB,CL/KCL 4,000 ML SOLUTION 2000 ML PO (13:52)
== END 2023-06-02 14:02 | disposition home or self-care (01) ==
PROVIDERS: Emergency Provider Emergency Medicine; Family Provider Pediatrics; PCP Student in an Organized Health Care Education/Training Program
DX: K59.00 Constipation, unspecified (principal)
CPT/HCPCS: 36415; 74018; 80053; 82962; 83690; 85025; 99284

== ENCOUNTER → 2023-06-08 14:27 | Outpatient (CLI) | payer MEDICARE, SELFPAY ==
[2023-02-27 01:16] VITALS: BMI 21.7
--- NOTE | 2023-06-08 14:29 | DI.US.S_ITS ---
PROCEDURE: US SCROTUM INDICATIONS: left sided testicular pain. TECHNIQUE: Real-time scanning was performed of the scrotum and testicles, with image documentation. Color and pulse Doppler interrogation was performed of both testicles. COMPARISON: None. FINDINGS: Right: Testicle is normal in size at 4.1 x 2.2 x 2.4 cm, and homogenous in echotexture. Epididymis is normal in overall size and morphology. No hydrocele or varicoceles. Overlying scrotal skin is normal in thickness. Left: Testicle is normal in size at 4.3 x 2.6 x 1.6 cm, and heterogeneous in echotexture. Epididymis is normal in overall size and morphology. Small hydrocele. No varicoceles. Overlying scrotal skin is normal in thickness. Doppler: Color and pulse Doppler demonstrate normal and symmetric arterial flow in both testicles. IMPRESSION: 1. Left testicle demonstrates heterogeneous echotexture. Etiology uncertain. Diagnostic considerations include traumatic contusions, seminiferous tubules atrophy and sclerosis, and less likely neoplasm (lymphoma or leukemia in this patient's age group). Consider comparison to prior examinations, if available. If clinical symptoms persist, a follow-up exam is recommended. 2. Normal epididymis bilaterally. 3. Small left hydrocele. Dictated by: Ibis Dow M.D. on 06/08/2023 at 17:28 Approved by: Ibis Dow M.D. on 06/08/2023 at 21:19
--- NOTE | 2023-06-08 14:29 | DI.US.S_ITS ---
PROCEDURE: US ABDOMEN COMPLETE INDICATIONS: abdominal distention, RUQ pain TECHNIQUE: Real-time scanning was performed of the abdominal and retroperitoneal organs, with image documentation. COMPARISON: None. FINDINGS: Liver: Liver is normal in size and homogeneous in echotexture. Gallbladder: Sonolucent without evidence cholelithiasis, gallbladder wall thickening or pericholecystic fluid. No sonographic León sign. Biliary ducts: Intrahepatic bile ducts are non-dilated. Extrahepatic bile duct caliber measures 5.1 mm. Normal is 6-7 mm or less in diameter, or 10 mm or less post-cholecystectomy. Pancreas: Visualized portions of the pancreas are sonographically normal. Spleen: Spleen is normal in size and homogeneous in echotexture. Kidneys: Kidneys are normal in size and echotexture. Right kidney measures 12.8 cm long; left kidney measures 11.4 cm long. No hydronephrosis or nephrolithiasis. No solid masses. Aorta: Visualized aorta is normal in caliber at less than 3 cm. Iliacs: Proximal common iliac arteries are normal in caliber at less than 2.5 cm. IVC: Intrahepatic inferior vena cava is patent. Miscellaneous: No free abdominal fluid. Probable left pleural effusion IMPRESSION: Incidental left pleural effusion. No ascites. Approved by: Jason Samuel M.D. on 06/08/2023 at 19:01
== END ==
PROVIDERS: Family Provider Pediatrics; PCP Student in an Organized Health Care Education/Training Program; Referring Provider Family Medicine; Visit Provider Family Medicine
DX: S39.94XA Unspecified injury of external genitals, initial encounter (principal); N43.3 Hydrocele, unspecified; J90 Pleural effusion, not elsewhere classified; R14.0 Abdominal distension (gaseous); X58.XXXA Exposure to other specified factors, initial encounter
CPT/HCPCS: 76700; 76870

== ENCOUNTER → 2023-11-25 14:12 | Outpatient (CLI) | payer MEDICARE, SELFPAY ==
[2023-02-27 01:16] VITALS: BMI 21.7
[2023-11-25 15:41] LABS: Erythrocyte Sedimentation Rate 34 MM/HR (0-15)
[2023-11-25 16:02] LABS: Thyroid Stimulating Hormone 1.06 uIU/mL (0.47-4.68)
[2023-11-25 22:03] LABS: C-Reactive Protein Quant < 0.5 mg/dL (<1.0)
== END ==
LOC: LAB 14:13
PROVIDERS: Family Provider Pediatrics; PCP Student in an Organized Health Care Education/Training Program; Referring Provider Internal Medicine Cardiovascular Disease; Visit Provider Internal Medicine Cardiovascular Disease
DX: I31.39 Other pericardial effusion (noninflammatory) (principal); I25.10 Atherosclerotic heart disease of native coronary artery without angina pectoris
CPT/HCPCS: 36415; 84443; 85651; 86140

== ENCOUNTER 2024-11-02 05:00 | Emergency (ER) | payer MEDICARE, SELFPAY ==
[2024-09-15 16:25] VITALS: BMI 21.7
[2024-11-02] VITALS (34 sets, daily range): BP systolic 108–158; BP diastolic 69–90; PULSE 88–108; RESP 18–32; TEMP 37.2; O2SAT 92–98; BMI 21.5
--- NOTE | 2024-11-02 05:04 | DI.CT.S_ITS ---
PROCEDURE: CT HEAD/BRAIN WO CON INDICATIONS: nausea/vomiting, on thinners, bleeding ear TECHNIQUE: Noncontrast 4.5 mm thick angled axial sections acquired from the foramen magnum to the vertex, with coronal and sagittal reformats. For radiation dose reduction, the following was used: automated exposure control, adjustment of mA and/or kV according to patient size. COMPARISON: [facility], CT, CT HEAD/BRAIN WO CON, 07/10/2022, 14:57. FINDINGS: Image quality: Diagnostic. CSF spaces: Basal cisterns are patent. No extra-axial fluid collections. The ventricles are symmetric in size and shape. Brain: Right medial frontal encephalomalacia is new compared to prior but has a chronic appearance. No intracranial bleeds or mass effect. There is cerebral volume loss, with resultant ventricular and sulcal prominence. There are periventricular and deep white matter chronic small vessel ischemic changes. There is intracranial internal carotid artery atherosclerosis. Skull and face: Calvarium and visualized facial bones appear intact, without suspicious lesions. Density within the left external auditory canal. Sinuses: Visualized sinuses and mastoids are clear. IMPRESSION: No acute intracranial pathology. Density within the left external auditory canal, may represent blood product. Recommend correlation with physical exam and consider ENT follow-up to exclude underlying mass. 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 Findings are concordant with preliminary interpretation provided by [facility]. Dictated by: Theodore Waite M.D. on 11/02/2024 at 7:59 Approved by: Theodore Wiate M.D. on 11/02/2024 at 8:02
--- NOTE | 2024-11-02 05:17 | ED_ITS ---
HPI - General Adult <Jacinto Blancas MD - Last Filed: 11/02/24 16:40> General Chief complaint: Ear Stated complaint: Blood in ear, Nausea Time Seen by Provider: 11/02/24 05:04 Source: patient and family Mode of arrival: Wheelchair History of Present Illness HPI narrative: 84-year-old male with history of prior CVA, vascular dementia, CAD, diabetes, rheumatoid arthritis, anemia. Noted to have alarm for low blood sugar on his diabetic monitoring device, given oral cranberry juice, with improvement of glucose in the 200s range. Patient then had coughing spell, turned on the light and noticed there was blood from the left ear and on the left side of the face. No trauma or injury. No recent left ear instrumentation or left ear pain. No recent antibiotic exposure. He takes Plavix medications, no other blood thinner medications recalled. Related Data Home Medications ?Medication ?Instructions ?Recorded ?Confirmed insulin aspart U-100 100 unit/mL See Rx Instructions . Route .COMPLEX 04/04/20 11/02/24 (3 mL) subcutaneous pen (Novolog FlexPen U-100 Insulin aspart) insulin glargine 100 unit/mL (3 14 unit SUBCUT BEDTIME 04/04/20 11/02/24 mL) subcutaneous pen (Lantus Solostar U-100 Insulin) clopidogrel 75 mg tablet 75 mg PO DAILY 10/03/2210/24 metoprolol tartrate 50 mg tablet 25 mg PO BID 10/03/22 11/02/24 rosuvastatin 5 mg tablet 5 mg PO DAILY 10/03/2211/02 colchicine 0.6 mg capsule mg PO reduce fluid surroundi ng 03/19/23 09/23/24 heart insulin glargine 100 unit/mL (3 unit SUBCUT 07/06/23 0 09/23/24 mL) subcutaneous pen (Lantus Solostar U-100 Insulin) Previous Rx's ?Medication ?Instructions ?Recorded Disabled Parking Permit #1 ea 08/26/23 hydroxychloroquine 200 mg tablet 200 mg PO BID #180 ta bs 10/05/23 denosumab 60 mg/mL subcutaneous 60 mg SUBCUT [id number] #1 mL 12/24/23 syringe (Prolia) fluticasone 500 mcg-salmeterol 50 1 inh inhalation RENNY LY #60 ea 09/15/24 mcg/dose blistr powdr for inhalation (Advair Diskus) vibegron 75 mg tablet 75 mg PO DAILY #90 tabs 03/19 vibegron 75 mg tablet (Gemtesa) 75 mg PO DAILY #30 tab s 09/30/24 amoxicillin 875 mg tablet 875 mg PO BID dental infecti on 10 11/02/24 days #20 tabs Allergies Allergy/AdvReac Type Severity Reaction Status Date / Time shellfish derived AdvReac Nausea Verified 11/02/24 05:10 Patient History <Jacinto Blancas MD - Last Filed: 11/02/24 16:40> Medical History Cerebrovascular accident (CVA) of left basal ganglia (08/27/22) Acute cerebral infarction (08/19/22) Non-ST elevation myocardial infarction (NSTEMI) Diabetes mellitus, labile Thalamic stroke Rheumatoid arthritis Anemia Cataract Diabetes History of colon polyps COPD (chronic obstructive pulmonary disease) Ingrowing toenail of left foot Surgical History History of cataract surgery Total knee replacement status Social History household members: spouse Smoking Status: Unknown if ever smoked alcohol intake: former Smoking Status: Unknown if ever smoked alcohol intake frequency: other Exam <Jacinto Blancas MD - Last Filed: 11/02/24 16:40> Narrative Exam Narrative: GENERAL: Well-developed patient, in mild distress. HEAD: Atraumatic. Normocephalic. EYES: Pupils equal round and reactive. Extraocular motions intact. No scleral icterus. No injection or drainage. ENT: Nose without bleeding, purulent drainage. Throat without erythema, tonsillar hypertrophy or exudate. Airway patent. NECK: Trachea midline. Non tender CARDIOVASCULAR: Regular rate and rhythm without murmurs, gallops, or rubs. RESPIRATORY: Clear to auscultation. Breath sounds equal bilaterally. No wheezes, rales, or rhonchi. GASTROINTESTINAL: Abdomen soft, non-tender, nondistended. EXTREMITIES: No edema or joint tenderness. BACK: Nontender without deformity or crepitance. No flank tenderness. NEURO: AOx3. Motor functions grossly nonfocal. SKIN: No rash or erythema of visible areas Initial Vital Signs Initial Vital Signs: Vital Signs Pulse Rate 108 H 11/02/24 05:04 Pulse Oximetry 97 11/02/24 05:04 <Mali Delaney DO - Last Filed: 11/02/24 19:05> Initial Vital Signs Initial Vital Signs: Vital Signs Pulse Rate 108 H 11/02/24 05:04 Pulse Oximetry 97 11/02/24 05:04 Course <Jacinto Blancas MD - Last Filed: 11/02/24 16:40> Orders Ordered: Discontinued Medications Amoxicillin (Amoxicillin 250 Mg Capsule) 1,000 mg PO NOW ONE Stop: 11/02/24 06:37 Last Admin: 11/02/24 06:54 Dose: 1,000 mg Documented By: BERNICE Ondansetron HCl (Ondansetron 4 Mg Odt) 4 mg SL NOW ONE Stop: 11/02/24 05:07 Last Admin: 11/02/24 05:24 Dose: 4 mg Documented By: BERNICE Ondansetron HCl (Ondansetron 4 Mg/2 Ml Inj) 4 mg IV NOW ONE Stop: 11/02/24 15:48 Last Admin: 11/02/24 15:51 Dose: 4 mg Documented By: Vital Signs Vital signs: Vital Signs - 8 hr 11/02/24 11:30 11/02/24 11:30 11/02/24 12:00 Pulse Rate 96 H Respiratory Rate 24 Blood Pressure 132/85 124/88 Pulse Oximetry 96 Oxygen Delivery Method Room Air 11/02/24 12:00 11/02/24 12:30 11/02/24 12:30 Pulse Rate 97 H 96 H Respiratory Rate 25 H 23 Blood Pressure 136/85 Pulse Oximetry 97 97 Oxygen Delivery Method Room Air 11/02/24 13:00 11/02/24 13:00 11/02/24 13:30 Pulse Rate 99 H Respiratory Rate 23 Blood Pressure 142/86 H 133/83 Pulse Oximetry 96 Oxygen Delivery Method Room Air 11/02/24 13:30 11/02/24 14:00 11/02/24 14:00 Pulse Rate 96 H 96 H Respiratory Rate 23 22 Blood Pressure 138/71 Pulse Oximetry 97 92 Oxygen Delivery Method 11/02/24 14:30 11/02/24 14:30 11/02/24 14:30 Pulse Rate 98 H Respiratory Rate 26 H Blood Pressure 143/81 H 143/81 H Pulse Oximetry 94 Oxygen Delivery Method 11/02/24 15:00 11/02/24 15:01 11/02/24 15:01 Pulse Rate 96 H 96 H Respiratory Rate 27 H 25 H Blood Pressure 112/74 Pulse Oximetry 93 95 Oxygen Delivery Method Room Air 11/02/24 15:30 11/02/24 15:30 11/02/24 16:00 Pulse Rate 96 H 93 H Respiratory Rate 26 H 19 Blood Pressure 108/69 Pulse Oximetry 96 94 Oxygen Delivery Method 11/02/24 16:01 11/02/24 16:01 11/02/24 16:30 Pulse Rate 92 H 92 H Respiratory Rate 28 H 27 H Blood Pressure 122/86 Pulse Oximetry 95 94 Oxygen Delivery Method 11/02/24 17:00 11/02/24 17:01 11/02/24 17:01 Pulse Rate 91 H 91 H Respiratory Rate 28 H 28 H Blood Pressure 158/77 H Pulse Oximetry 94 94 Oxygen Delivery Method Room Air 11/02/24 17:30 11/02/24 17:31 11/02/24 17:31 Pulse Rate 88 91 H Respiratory Rate 32 H 27 H Blood Pressure 115/82 Pulse Oximetry 92 94 Oxygen Delivery Method <Mali Delaney, - Last Filed: 11/02/24 19:05> Orders Ordered: Discontinued Medications Amoxicillin (Amoxicillin 250 Mg Capsule) 1,000 mg PO NOW ONE Stop: 11/02/24 06:37 Last Admin: 11/02/24 06:54 Dose: 1,000 mg Documented By: BERNICE Ondansetron HCl (Ondansetron 4 Mg Odt) 4 mg SL NOW ONE Stop: 11/02/24 05:07 Last Admin: 11/02/24 05:24 Dose: 4 mg Documented By: BERNICE Ondansetron HCl (Ondansetron 4 Mg/2 Ml Inj) 4 mg IV NOW ONE Stop: 11/02/24 15:48 Last Admin: 11/02/24 15:51 Dose: 4 mg Documented By: Vital Signs Vital signs: Vital Signs - 8 hr 11/02/24 11:30 11/02/24 11:30 11/02/24 12:00 Pulse Rate 96 H Respiratory Rate 24 Blood Pressure 132/85 124/88 Pulse Oximetry 96 Oxygen Delivery Method Room Air 11/02/24 12:00 11/02/24 12:30 11/02/24 12:30 Pulse Rate 97 H 96 H Respiratory Rate 25 H 23 Blood Pressure 136/85 Pulse Oximetry 97 97 Oxygen Delivery Method Room Air 11/02/24 13:00 11/02/24 13:00 11/02/24 13:30 Pulse Rate 99 H Respiratory Rate 23 Blood Pressure 142/86 H 133/83 Pulse Oximetry 96 Oxygen Delivery Method Room Air 11/02/24 13:30 11/02/24 14:00 11/02/24 14:00 Pulse Rate 96 H 96 H Respiratory Rate 23 22 Blood Pressure 138/71 Pulse Oximetry 97 92 Oxygen Delivery Method 11/02/24 14:30 11/02/24 14:30 11/02/24 14:30 Pulse Rate 98 H Respiratory Rate 26 H Blood Pressure 143/81 H 143/81 H Pulse Oximetry 94 Oxygen Delivery Method 11/02/24 15:00 11/02/24 15:01 11/02/24 15:01 Pulse Rate 96 H 96 H Respiratory Rate 27 H 25 H Blood Pressure 112/74 Pulse Oximetry 93 95 Oxygen Delivery Method Room Air 11/02/24 15:30 11/02/24 15:30 11/02/24 16:00 Pulse Rate 96 H 93 H Respiratory Rate 26 H 19 Blood Pressure 108/69 Pulse Oximetry 96 94 Oxygen Delivery Method 11/02/24 16:01 11/02/24 16:01 11/02/24 16:30 Pulse Rate 92 H 92 H Respiratory Rate 28 H 27 H Blood Pressure 122/86 Pulse Oximetry 95 94 Oxygen Delivery Method 11/02/24 17:00 11/02/24 17:01 11/02/24 17:01 Pulse Rate 91 H 91 H Respiratory Rate 28 H 28 H Blood Pressure 158/77 H Pulse Oximetry 94 94 Oxygen Delivery Method Room Air 11/02/24 17:30 11/02/24 17:31 11/02/24 17:31 Pulse Rate 88 91 H Respiratory Rate 32 H 27 H Blood Pressure 115/82 Pulse Oximetry 92 94 Oxygen Delivery Method Medical Decision Making <Jacinto Blancas MD - Last Filed: 11/02/24 16:40> Lab Data 11/02/24 06:47 11/02/24 06:47 Labs: Lab Results 11/02/24 11/02/24 11/02/24 Range/Units 05:26 05:35 06:47 WBC 14.1 H (4.5-11.0) X10^3/uL RBC 3.54 L (4.5-5.9) X10^6/uL Hgb 11.1 L (13.5-17.5) g/dL Hct 33.0 L (41-53) % MCV 93.3 (80-100) fL MCH 31.4 (26-34) PG MCHC 33.7 (30-36) % RDW 16.0 H (11.6-14.8) % Plt Count 279 (150-400) X10^3/uL Neut % (Auto) 92.4 H (50-75) % Lymph % (Auto) 2.0 L (25-40) % [place] % (Auto) 5.3 (3-14) % Eos % (Auto) 0.2 L (2-4) % Baso % (Auto) 0.1 (0-2) % Neut # (Auto) 49087 H (8412-6075) /uL Lymph # (Auto) 300 L (8959-8644) /uL [place] # (Auto) 700 (0-900) /uL Eos # (Auto) 0 (0-450) /uL Baso # (Auto) 0 (0-100) /uL PT 13.2 H (9.4-12.5) SECONDS INR 1.2 (0.9-1.3) Sodium 138 (137-145) mmol/L Potassium 4.8 (3.4-5.1) mmol/L Chloride 108 H (98-107) mmol/L Carbon Dioxide 20 L (22-32) mmol/L BUN 43 H (9-20) mg/dL Creatinine 1.35 H (0.66-1.25) mg/dL Estimated GFR 52 L (>60) mL/min BUN/Creatinine Ratio 31.9 H (6-22) Glucose 197 H (70-99) mg/dL POC Whole Bld Glucose 216 H (70-99) mg/dL Calcium 8.7 (8.4-10.2) mg/dL Total Bilirubin 0.5 (0.2-1.3) mg/dL AST 109 H (17-59) IU/L ALT 122 H (<50) IU/L Alkaline Phosphatase 148 H (38-126) U/L Troponin I 0.064 H (0.01-0.034) ng/mL NT-Pro-B Natriuret Pep 1180 H (<450) pg/mL Total Protein 7.3 (6.3-8.2) g/dL Albumin 3.7 (3.5-5.0) g/dL Globulin 3.6 (1.7-4.1) g/dL Albumin/Globulin Ratio 1.0 (1.0-2.8) SARS-CoV-2 (PCR) Negative (Negative) Influenza A (RT-PCR) Flu a negative (NEGATIVE) Influenza B (RT-PCR) Flu b negative (NEGATIVE) RSV (PCR) Negative (Negative) 11/02/24 11/02/24 Range/Units 09:15 15:57 WBC (4.5-11.0) X10^3/uL RBC (4.5-5.9) X10^6/uL Hgb (13.5-17.5) g/dL Hct (41-53) % MCV (80-100) fL MCH (26-34) PG MCHC (30-36) % RDW (11.6-14.8) % Plt Count (150-400) X10^3/uL Neut % (Auto) (50-75) % Lymph % (Auto) (25-40) % [place] % (Auto) (3-14) % Eos % (Auto) (2-4) % Baso % (Auto) (0-2) % Neut # (Auto) (0839-5787) /uL Lymph # (Auto) (7294-3379) /uL [place] # (Auto) (0-900) /uL Eos # (Auto) (0-450) /uL Baso # (Auto) (0-100) /uL PT (9.4-12.5) SECONDS INR (0.9-1.3) Sodium (137-145) mmol/L Potassium (3.4-5.1) mmol/L Chloride (98-107) mmol/L Carbon Dioxide (22-32) mmol/L BUN (9-20) mg/dL Creatinine (0.66-1.25) mg/dL Estimated GFR (>60) mL/min BUN/Creatinine Ratio (6-22) Glucose (70-99) mg/dL POC Whole Bld Glucose 100 H D (70-99) mg/dL Calcium (8.4-10.2) mg/dL Total Bilirubin (0.2-1.3) mg/dL AST (17-59) IU/L ALT (<50) IU/L Alkaline Phosphatase (38-126) U/L Troponin I 0.064 H (0.01-0.034) ng/mL NT-Pro-B Natriuret Pep (<450) pg/mL Total Protein (6.3-8.2) g/dL Albumin (3.5-5.0) g/dL Globulin (1.7-4.1) g/dL Albumin/Globulin Ratio (1.0-2.8) SARS-CoV-2 (PCR) (Negative) Influenza A (RT-PCR) (NEGATIVE) Influenza B (RT-PCR) (NEGATIVE) RSV (PCR) (Negative) ECG Data Attestation: I personally reviewed and interpreted this ECG as follows: Interpretation: 0641, normal sinus rhythm with rate of 98, no obvious ST segment elevation or depression changes. Left anterior fascicular block pattern. WV 142, QRS 92, QTC 457. None to compare. [facility] Narrative Medical decision making narrative: 84-year-old male with multiple complaints, including known diabetes with transient low blood sugar responsive to usual intervention of oral cranberry juice given by , coughing episode of unclear cause, left ear canal bleeding with no known trauma or recent ear pain or purulence. Taking Plavix medication. On exam there some clot in mixed debris possibly purulence in the left ear external auditory canal, I am reluctant to irrigate this, we will image. CT head noncontrast study ordered. Chest x-ray ordered. COVID influenza RSV swab ordered. CT head noncontrast. Impressions: ?no acute intracranial finding. Lead normal density obliterates the left external auditory canal, indeterminate, probably blood product or blood clot in the history of bleeding in the ear, soft tissue mass can be obscured, recommend ENT follow up. Chronic small-vessel ischemic disease. Old lacunar infarct left basal ganglia.? See tele radiology report Chest x-ray single view. Impressions: ?Progressive cardiomegaly or pericardial effusion, central pulmonary vascular congestion. Recommend echocardiogram. Small right greater than left pleural effusion with associated compressive atelectasis. See tele radiology report. We will send labs including CBC, CMP, troponin, BNP. EKG sinus rhythm with left anterior fascicular block, rate 98. 0715, Echo pending, troponin and BNP pending, signed out to Dr Delaney. Patient signed out to myself by Dr. Blancas, patient presents with a client of some cough, blood in his ear. Patient had known cross head CT was reviewed by myself, chest x-ray as well,. Labs are pending, she has a white count of 14 last was 7 available in May of 2023 hemoglobin appears stable at 11, platelets are 279. INR is 1.2 creatinine is 1.35 last is from over a year ago patient's BUN is 43 sodium is 138 potassium 4.8 chloride 108 CO2 is 20 glucose is 197 bilirubin is appropriate AST is 109 ALT is 122 alk-phos is 148 up from priors patient's troponin 0.064 with a BNP of 1180, patient's prior peak was 903. Repeat troponin is 0.064. EKG shows sinus rhythm, low-voltage QRS left anterior fascicular block. Patient has prior from 05/30/2024 with nonspecific change. Reviewed cardiology consult has known CAD pericardial effusion, echo in January of 2023 showed small to moderate-sized pericardial effusion which is chronic. Had kunakyep-[id number] without tamponade on July of 2023 per consult note. Follows with [facility] cardiology. Echo from today shows normal left ventricular contractility EF is greater than 55% with no segmental wall motion abnormalities mild concentric LVH indeterminate diastolic function. Right ventricular contractility is normal. All cardiac chambers normal size. No significant valvular abnormalities no obvious intracardiac shunts no obvious intracardiac masses or thrombi. Large circumferential pericardial effusion under the mitral inflow wish respiratory variation less than 25%. No diastolic collapse of the right atrium nor ventricle. Adherent hyper echogenic densities noted in the epicardium suggesting chronicity of the effusion. Elevated right-sided filling pressures. Borderline enlargement of the aortic root without obvious dissection. Patient has a normal biventricular systolic function with large circumferential pericardial effusion without echo evidence of tamponade. When compared with the previous echo does not appear to be increase in size of the pericardial effusion. Patient received Zofran and amoxicillin here in the department. [employer] paged @ [phone]. Spoke with cardiology at [facility] @ Dr. Zamora with cardiology. Would recommend transfer it sounds like his effusion has not increased in size. [facility] does not have any beds currently there at capacity. Family is aware they are agreeable to transfer to other facilities if necessary. Spoke with [facility] no beds currently but wait listed Spoke with Christine beth coordinator at [address], cardiology at . We will accept for transfer. Was talk with the hospitalist. Spoke with hospitalist Dr. Vasquez, Christine Beth who accepts for transfer. <Mali Delaney, DO - Last Filed: 11/02/24 19:05> Lab Data Labs: Lab Results 11/02/24 11/02/24 11/02/24 Range/Units 05:26 05:35 06:47 WBC 14.1 H (4.5-11.0) X10^3/uL RBC 3.54 L (4.5-5.9) X10^6/uL Hgb 11.1 L (13.5-17.5) g/dL Hct 33.0 L (41-53) % MCV 93.3 (80-100) fL MCH 31.4 (26-34) PG MCHC 33.7 (30-36) % RDW 16.0 H (11.6-14.8) % Plt Count 279 (150-400) X10^3/uL Neut % (Auto) 92.4 H (50-75) % Lymph % (Auto) 2.0 L (25-40) % [place] % (Auto) 5.3 (3-14) % Eos % (Auto) 0.2 L (2-4) % Baso % (Auto) 0.1 (0-2) % Neut # (Auto) 51085 H (9908-0517) /uL Lymph # (Auto) 300 L (2641-8298) /uL [place] # (Auto) 700 (0-900) /uL Eos # (Auto) 0 (0-450) /uL Baso # (Auto) 0 (0-100) /uL PT 13.2 H (9.4-12.5) SECONDS INR 1.2 (0.9-1.3) Sodium 138 (137-145) mmol/L Potassium 4.8 (3.4-5.1) mmol/L Chloride 108 H (98-107) mmol/L Carbon Dioxide 20 L (22-32) mmol/L BUN 43 H (9-20) mg/dL Creatinine 1.35 H (0.66-1.25) mg/dL Estimated GFR 52 L (>60) mL/min BUN/Creatinine Ratio 31.9 H (6-22) Glucose 197 H (70-99) mg/dL POC Whole Bld Glucose 216 H (70-99) mg/dL Calcium 8.7 (8.4-10.2) mg/dL Total Bilirubin 0.5 (0.2-1.3) mg/dL AST 109 H (17-59) IU/L ALT 122 H (<50) IU/L Alkaline Phosphatase 148 H (38-126) U/L Troponin I 0.064 H (0.01-0.034) ng/mL NT-Pro-B Natriuret Pep 1180 H (<450) pg/mL Total Protein 7.3 (6.3-8.2) g/dL Albumin 3.7 (3.5-5.0) g/dL Globulin 3.6 (1.7-4.1) g/dL Albumin/Globulin Ratio 1.0 (1.0-2.8) SARS-CoV-2 (PCR) Negative (Negative) Influenza A (RT-PCR) Flu a negative (NEGATIVE) Influenza B (RT-PCR) Flu b negative (NEGATIVE) RSV (PCR) Negative (Negative) 11/02/24 11/02/24 Range/Units 09:15 15:57 WBC (4.5-11.0) X10^3/uL RBC (4.5-5.9) X10^6/uL Hgb (13.5-17.5) g/dL Hct (41-53) % MCV (80-100) fL MCH (26-34) PG MCHC (30-36) % RDW (11.6-14.8) % Plt Count (150-400) X10^3/uL Neut % (Auto) (50-75) % Lymph % (Auto) (25-40) % [place] % (Auto) (3-14) % Eos % (Auto) (2-4) % Baso % (Auto) (0-2) % Neut # (Auto) (6790-7677) /uL Lymph # (Auto) (8267-1971) /uL [place] # (Auto) (0-900) /uL Eos # (Auto) (0-450) /uL Baso # (Auto) (0-100) /uL PT (9.4-12.5) SECONDS INR (0.9-1.3) Sodium (137-145) mmol/L Potassium (3.4-5.1) mmol/L Chloride (98-107) mmol/L Carbon Dioxide (22-32) mmol/L BUN (9-20) mg/dL Creatinine (0.66-1.25) mg/dL Estimated GFR (>60) mL/min BUN/Creatinine Ratio (6-22) Glucose (70-99) mg/dL POC Whole Bld Glucose 100 H D (70-99) mg/dL Calcium (8.4-10.2) mg/dL Total Bilirubin (0.2-1.3) mg/dL AST (17-59) IU/L ALT (<50) IU/L Alkaline Phosphatase (38-126) U/L Troponin I 0.064 H (0.01-0.034) ng/mL NT-Pro-B Natriuret Pep (<450) pg/mL Total Protein (6.3-8.2) g/dL Albumin (3.5-5.0) g/dL Globulin (1.7-4.1) g/dL Albumin/Globulin Ratio (1.0-2.8) SARS-CoV-2 (PCR) (Negative) Influenza A (RT-PCR) (NEGATIVE) Influenza B (RT-PCR) (NEGATIVE) RSV (PCR) (Negative) [facility] Narrative Medical decision making narrative: 84-year-old male with multiple complaints, including known diabetes with transient low blood sugar responsive to usual intervention of oral cranberry juice given by , coughing episode of unclear cause, left ear canal bleeding with no known trauma or recent ear pain or purulence. Taking Plavix medication. On exam there some clot in mixed debris possibly purulence in the left ear external auditory canal, I am reluctant to irrigate this, we will image. CT head noncontrast study ordered. Chest x-ray ordered. COVID influenza RSV swab ordered. CT head noncontrast. Impressions: ?no acute intracranial finding. Lead normal density obliterates the left external auditory canal, indeterminate, probably blood product or blood clot in the history of bleeding in the ear, soft tissue mass can be obscured, recommend ENT follow up. Chronic small-vessel ischemic disease. Old lacunar infarct left basal ganglia.? See tele radiology report Chest x-ray single view. Impressions: ?Progressive cardiomegaly or pericardial effusion, central pulmonary vascular congestion. Recommend echocardiogram. Small right greater than left pleural effusion with associated compressive atelectasis. See tele radiology report. We will send labs including CBC, CMP, troponin, BNP. EKG sinus rhythm with left anterior fascicular block, rate 98. 0715, Echo pending, troponin and BNP pending, signed out to Dr Delaney. Patient signed out to myself by Dr. Blancas, patient presents with a client of some cough, blood in his ear. Patient had known cross head CT was reviewed by myself, chest x-ray as well,. Labs are pending, she has a white count of 14 last was 7 available in May of 2023 hemoglobin appears stable at 11, platelets are 279. INR is 1.2 creatinine is 1.35 last is from over a year ago patient's BUN is 43 sodium is 138 potassium 4.8 chloride 108 CO2 is 20 glucose is 197 bilirubin is appropriate AST is 109 ALT is 122 alk-phos is 148 up from priors patient's troponin 0.064 with a BNP of 1180, patient's prior peak was 903. Repeat troponin is 0.064. EKG shows sinus rhythm, low-voltage QRS left anterior fascicular block. Patient has prior from 05/30/2024 with nonspecific change. Reviewed cardiology consult has known CAD pericardial effusion, echo in January of 2023 showed small to moderate-sized pericardial effusion which is chronic. Had hpycmate-rx-pnnxa without tamponade on July of 2023 per consult note. Follows with [facility] cardiology. Echo from today shows normal left ventricular contractility EF is greater than 55% with no segmental wall motion abnormalities mild concentric LVH indeterminate diastolic function. Right ventricular contractility is normal. All cardiac chambers normal size. No significant valvular abnormalities no obvious intracardiac shunts no obvious intracardiac masses or thrombi. Large circumferential pericardial effusion under the mitral inflow wish respiratory variation less than 25%. No diastolic collapse of the right atrium nor ventricle. Adherent hyper echogenic densities noted in the epicardium suggesting chronicity of the effusion. Elevated right-sided filling pressures. Borderline enlargement of the aortic root without obvious dissection. Patient has a normal biventricular systolic function with large circumferential pericardial effusion without echo evidence of tamponade. When compared with the previous echo does not appear to be increase in size of the pericardial effusion. Patient received Zofran and amoxicillin here in the department. [facility] cards paged @ [phone]. Spoke with cardiology at [facility] @ Dr. Zamora with cardiology. Would recommend transfer it sounds like his effusion has not increased in size. [facility] does not have any beds currently there at [facility]. Family is aware they are agreeable to transfer to other facilities if necessary. Spoke with [facility] no beds currently but wait listed Spoke with Christine beth coordinator at [address], cardiology at . We will accept for transfer. Ask that we talk with the hospitalist. Spoke with hospitalist Dr. Vasquez, Christine Beth who accepts for transfer. Reviewed all patient's finding history available in EMR. Patient and family are agreeable to transfer. Discharge Plan Departure Patient Disposition: [facility] Clinical Impression: Debris in left ear canal, Blood in left ear canal, Cardiomegaly, Pericardial effusion Prescriptions: New amoxicillin 875 mg tablet 875 mg PO BID 10 Days Qty: 20 0RF No Action colchicine 0.6 mg capsule PO hydroxychloroquine 200 mg tablet 200 mg PO BID Qty: 180 3RF insulin glargine [Lantus Solostar U-100 Insulin] 100 unit/mL (3 mL) insulin pen SUBCUT Rx Instructions: Inject 15 units under the skin at bedtime. fluticasone propion-salmeterol [Advair Diskus] 500-50 mcg/dose blister with device 1 inh INHALATION DAILY Qty: 60 3RF (DME) Disabled Parking Permit 0 ea .ROUTE .MEDSUPPLY Qty: 1 0RF Rx Instructions: This pt qualifies for disabled parking priviledges Prolia 60 mg/mL syringe 60 mg SUBCUT [id number] Qty: 1 6RF Gemtesa 75 mg tablet 75 mg PO DAILY Qty: 30 0RF Rx Instructions: 30-day free trial rosuvastatin 5 mg tablet 5 mg PO DAILY clopidogrel 75 mg tablet 75 mg PO DAILY metoprolol tartrate 50 mg tablet 25 mg PO BID insulin aspart U-100 [Novolog FlexPen U-100 Insulin] 100 unit/mL (3 mL) insulin pen See Rx Instructions .ROUTE .COMPLEX Rx Instructions: Blood sugar sliding scale 130-199 = 2 units 200-249 = 3 units 250-299 = 5 units 300-349 = 7 units 350+ = 9 units insulin glargine [Lantus Solostar U-100 Insulin] 100 unit/mL (3 mL) insulin pen 14 unit SUBCUT BEDTIME vibegron 75 mg tablet 75 mg PO DAILY Qty: 90 1RF Referrals: Manish Mack MD [Physician, Ear, Nose, Throat] Yovanny Thorpe MD [Physician, Otolaryngology (ENT)] Asha Figueroa MD [Primary Care Provider, Family Practice]
[2024-11-02] MEDS: ONDANSETRON 4 MG ODT SL (05:24)
--- NOTE | 2024-11-02 05:36 | DI.RAD.S_ITS ---
PROCEDURE: XR CHEST 1V INDICATIONS: cough TECHNIQUE: One view of the chest was acquired. COMPARISON: [facility], CR, XR CHEST 2V, 02/26/2023, 14:22. FINDINGS: Surgical changes and devices: None. Lungs and pleura: Small to moderate right pleural effusion and small left pleural effusion is seen. Pulmonary vascular congestion. Ill-defined patchy airspace opacity in bilateral lung peraza, scattered infiltrates cannot be excluded. No pneumothorax. Mediastinum: Mediastinal contours appear normal. Heart size is enlarged. Bones and chest wall: No suspicious bony lesions. Overlying soft tissues appear unremarkable. IMPRESSION: Cardiomegaly and pulmonary vascular congestion with right greater than left bilateral pleural effusion. No gross pneumothorax. Ill-defined opacities in bilateral lung peraza which may represent pulmonary edema versus patchy infiltrates. Clinical correlation and follow-up is recommended. No significant discrepancies. Dictated by: Danilo Naik M.D. on 11/02/2024 at 8:21 Approved by: Danilo Naik M.D. on 11/02/2024 at 8:22
[2024-11-02 06:19] LABS: Influenza A - CEPHEID Flu A NEGATIVE (NEGATIVE); Influenza B - CEPHEID Flu B NEGATIVE (NEGATIVE)
--- NOTE | 2024-11-02 06:34 | DI.ECHO.S_ITS ---
[place] [facility]+ [facility] : : [address] : : [place] : : [id number] : : Phone: [phone] Echocardiogram Report + + :Name: SANAZ MENG Study Date: 11/02/2024 Height: 70 in : :[facility] ReadingLocation: Weight: 150 lb : : Gender: Male BSA: 1.8 m2 : :: 1940 Age: 84 yrs BP: 142/83 mmHg: :Reason For Study: HX PCE, COUGH : :Ordering Physician: RUPERTO, : :ROBERT Performed By: Serafin Lance : :Referring: ROBERT HICKEY : + + Interpretation Summary - The left ventricular contractility is normal. Estimated ejection fraction is greater than 55% with no segmental wall motion abnormalities. Mild concentric LVH indeterminate diastolic function. - The right ventricular contractility is normal. - All cardiac chambers are of normal size. - No significant valvular abnormalities. - No obvious intracardiac shunts. - No obvious intracardiac masses nor thrombi. - A large, circumferential pericardial effusion noted with mitral inflow respiratory variation of less than 25%. No diastolic collapse of the right atrium nor right ventricle. Adherent hyperechogenic densities noted on the epicardium suggesting chronicity of the effusion. - Elevated right-sided filling pressures. - Borderline enlargement of the aortic root without obvious dissection. Conclusion: Normal biventricular systolic function with large circumferential pericardial effusion without echocardiographic evidence of tamponade. When compared with previous echocardiogram, there does appear to be an increase in the size of the pericardial effusion. Procedure: A two-dimensional transthoracic echocardiogram with color flow and Doppler was performed. The study quality was technically good. Comparison is made with the echocardiogram of 02/27/2023. The patient was in normal sinus rhythm during the exam. Left Ventricle: The left ventricle is normal in size. There is mild concentric left ventricular hypertrophy. The ejection fraction is estimated to be 55-60%. Diastolic function is indeterminate. Right Ventricle: The right ventricle is normal size. The right ventricular systolic function is normal. Atria: The left atrium is not well visualized. Right atrial size is normal. The interatrial septum is not well visualized. Mitral Valve: There is mild to moderate mitral annular calcification. The mitral valve leaflets appear mildly thickened. There is no mitral regurgitation noted. Aortic Valve: The aortic valve is trileaflet. The aortic valve opens well. No aortic regurgitation is present. Tricuspid Valve: The tricuspid valve is not well visualized, but is grossly normal. No tricuspid regurgitation. Pulmonic Valve: The pulmonic valve is not well seen, but is grossly normal. There is no pulmonic valvular regurgitation. Great Vessels: The aortic root is borderline dilated. The dimensions of the ascending aorta are normal. The pulmonary artery is normal size. The IVC is dilated (diameter is greater than 2.1 cm) and it collapses less than 50% with a sniff. This suggests a high right atrial pressure of 15 mm Hg. Pericardium/ Pleura There is a large pericardial effusion noted. There is no pleural effusion. MMode/2D Measurements & Calculations LVIDd: 3.5 cm LVOT diam: 2.0 cm LVIDs: 2.9 cm Ao root diam: 3.8 cm FS: 17.8 % asc Aorta Diam: 3.4 cm EPSS: 0.58 cm IVSd: 1.1 cm LVPWd: 1.1 cm LV espino. diameter/BSA (cm/m^2): 1.9 LV sys. diameter/BSA (cm/m^2): 1.6 LA A2 area: 13.2 cm2 IVC diam: 2.2 cm LA A4 area: 13.7 cm2 LA length (vol): 5.7 cm LA vol: 27.1 ml LA vol index: 14.6 ml/m2 RVD1 (basal): 3.0 cm RVD2 (mid): 1.9 cm TAPSE: 1.5 cm Doppler Measurements & Calculations Ao V2 max: 116.4 cm/sec LVOT Max Vazquez: 79.1 cm/sec Ao V2 mean: 85.4 cm/sec LV V1 max P.5 mmHg Ao max P.4 mmHg LV V1 VTI: 12.1 cm Ao mean P.1 mmHg KYLE(I,D): 2.1 cm2 Ao V2 VTI: 18.8 cm KYLE(V,D): 2.2 cm2 sev ratio: 0.64 KYLE indexed to BSA (cm^2/m^2): 1.1 MV E max vazquez: 63.0 cm/sec PA V2 max: 118.5 cm/sec MV A max vazquez: 106.5 cm/sec PA V2 mean: 79.5 cm/sec MV E/A: 0.59 PA mean P.8 mmHg Med Peak E' Vazquez: 2.0 cm/sec PA pr(Accel): 39.6 mmHg E/E' med: 31.2 Lat Peak E' Vazquez: 2.0 cm/sec E/E' lat: 32.0 E/e' average: 31.6 MV dec time: 0.24 sec SV(LVOT): 38.8 ml Reading Physician:GABINO
[2024-11-02 06:36] LABS: COVID-19 CEPHEID 4-PLEX PCR Negative (Negative)
--- NOTE | 2024-11-02 06:41 | EKG_ITS ---
[facility] [address] [place] [address] Test Date: 2024-11-02 Pat Name: Kendall Lopez Department: [facility] Room: Gender: Male [employer]: [facility] [place] : 1940 Requested By: Order Number: [id number] Reading MD: Jeramy Maier MD Measurements Intervals [place] Rate: 98 P: 53 ND: 142 QRS: -48 QRSD: 92 T: 82 QT: 358 QTc: 457 Interpretive Statements Normal sinus rhythm Low voltage QRS Left anterior fascicular block Electronically Signed On 11-07-2024 7:41:32 PDT by Jeramy Maier MD
[2024-11-02 06:54] LABS: Add Manual Diff / Slide Review NO; Hematocrit 33.0 % (41-53); Hemoglobin 11.1 g/dL (13.5-17.5); Lymphocytes Absolute Auto 300 /uL (1100-4500); Mean Corpuscular HGB Conc 33.7 % (30-36); Mean Corpuscular Hemoglobin 31.4 PG (26-34); Mean Corpuscular Volume 93.3 fL (80-100); Platelet Count 279 X10^3/uL (150-400)
[2024-11-02] MEDS: AMOXICILLIN 250 MG CAPSULE 1000 MG PO (06:54)
[2024-11-02 07:04] LABS: INR 1.2 (0.9-1.3); Prothrombin Time 13.2 SECONDS (9.4-12.5)
[2024-11-02 07:07] LABS: Alanine Aminotransferase 122 IU/L (<50); Albumin 3.7 g/dL (3.5-5.0); Albumin Globulin Ratio 1.0 (1.0-2.8); Alkaline Phosphatase 148 U/L (38-126); Blood Urea Nitrogen 43 mg/dL (9-20); Calcium 8.7 mg/dL (8.4-10.2); Carbon Dioxide 20 mmol/L (22-32); Chloride 108 mmol/L (98-107); Estimated Glomerular Filt Rate 52 mL/min (>60); Globulin 3.6 g/dL (1.7-4.1); Glucose 197 mg/dL (70-99); HEMOLYSIS < 15 (0-50); Potassium 4.8 mmol/L (3.4-5.1); Sodium 138 mmol/L (137-145); Total Protein 7.3 g/dL (6.3-8.2)
[2024-11-02 07:19] LABS: NT-proBNP (BNP-Adult 18+) 1180 pg/mL (<450); Troponin I 0.064 ng/mL (0.01-0.034)
[2024-11-02 10:08] LABS: Troponin I 0.064 ng/mL (0.01-0.034)
[2024-11-02] MEDS: ONDANSETRON 4 MG/2 ML INJ IV (15:51)
--- NOTE | 2024-11-02 15:55 | PC.NURSE ---
Pt sitting up in [facility], eating lunch. Pt now nauseated and trying to vomit into emesis bag. Dr Delaney notified, verbal order received for Zofran IV 4 mg. Medicated for nausea. BG 100
== END 2024-11-02 18:00 | disposition short-term general hospital (02) ==
PROVIDERS: Emergency Medicine; Emergency Provider Emergency Medicine; Family Provider Pediatrics; PCP Student in an Organized Health Care Education/Training Program
DX: H92.22 Otorrhagia, left ear (principal); H61.892 Other specified disorders of left external ear; I51.7 Cardiomegaly; J90 Pleural effusion, not elsewhere classified; Z79.01 Long term (current) use of anticoagulants
CPT/HCPCS: 36415; 70450; 71045; 80053; 82962; 83880; 84484; 85025; 85610; 87637; 93005; 93306; 96374; 99284; J2405

== ENCOUNTER → 2024-11-17 12:15 | Outpatient (CLI) | payer MEDICARE, SELFPAY ==
[2024-09-15 16:25] VITALS: BMI 21.7
[2024-11-17 12:41] LABS: Add Manual Diff / Slide Review NO; Hematocrit 29.7 % (41-53); Hemoglobin 10.1 g/dL (13.5-17.5); Lymphocytes Absolute Auto 600 /uL (1100-4500); Mean Corpuscular HGB Conc 34.1 % (30-36); Mean Corpuscular Hemoglobin 31.0 PG (26-34); Mean Corpuscular Volume 91.0 fL (80-100); Platelet Count 322 X10^3/uL (150-400)
[2024-11-17 12:50] LABS: Hemoglobin A1C% w Est Avg Glu 6.8 % (4.0-6.0)
[2024-11-17 13:09] LABS: Alanine Aminotransferase 32 IU/L (<50); Albumin 3.1 g/dL (3.5-5.0); Albumin Globulin Ratio 0.9 (1.0-2.8); Alkaline Phosphatase 103 U/L (38-126); Blood Urea Nitrogen 28 mg/dL (9-20); Calcium 8.5 mg/dL (8.4-10.2); Carbon Dioxide 22 mmol/L (22-32); Chloride 104 mmol/L (98-107); Cholesterol 108 mg/dL (140-199); Estimated Glomerular Filt Rate > 60 mL/min (>60); Globulin 3.5 g/dL (1.7-4.1); Glucose 156 mg/dL (70-99); HDL Cholesterol 52 mg/dL (40-60); HEMOLYSIS 47 (0-50); Potassium 4.9 mmol/L (3.4-5.1); Sodium 134 mmol/L (137-145); Total Protein 6.6 g/dL (6.3-8.2); Triglycerides 50 mg/dL (35-150)
== END ==
PROVIDERS: Family Provider Pediatrics; PCP Student in an Organized Health Care Education/Training Program; Referring Provider Student in an Organized Health Care Education/Training Program; Visit Provider Student in an Organized Health Care Education/Training Program
DX: I25.10 Atherosclerotic heart disease of native coronary artery without angina pectoris (principal); E10.9 Type 1 diabetes mellitus without complications
CPT/HCPCS: 36415; 80053; 80061; 83036; 85025

== ENCOUNTER → 2024-12-14 13:17 | Outpatient (CLI) | payer MEDICARE, SELFPAY ==
[2024-09-15 16:25] VITALS: BMI 21.7
--- NOTE | 2024-12-14 13:18 | DI.US.S_ITS ---
PROCEDURE: US RENAL COMPLETE INDICATIONS: URINARY RETENTION TECHNIQUE: Real-time scanning was performed of the kidneys and bladder, with image documentation. COMPARISON: None. FINDINGS: Kidneys: Kidneys are normal in size. Right kidney measures 12.5 cm long; left kidney measures 10.7 cm long. Right renal cortical thickness is 1.3 cm; left renal cortical thickness is 1 cm. Renal cortical echotexture is normal. No hydronephrosis . Multiple punctate hyperechoic foci scattered throughout the right kidney, compatible with non-obstructing stones. No suspicious solid mass lesions. There is trace perinephric fluid inferior to the left kidney. Bladder: The bladder is decompressed around a Gonzalez catheter. The wall appears thickened measuring up to 12 mm, however incompletely evaluated secondary to under distension. Miscellaneous: No free pelvic fluid. Incidental note of moderate to severe right pleural effusion and trace left pleural effusion. IMPRESSION: 1. The bladder is decompressed around a Gonzalez catheter. The bladder wall appears thickened, however incompletely evaluated secondary to under distention. 2. Punctate nonobstructing right renal calculi. 3. Incidental note of moderate to severe right pleural effusion and trace left pleural effusion. Dictated by: Patricia Bradley M.D. on 12/14/2024 at 18:08 Approved by: Patrciia Bradley M.D. on 12/14/2024 at 18:12
== END ==
LOC: US 13:18
PROVIDERS: Family Provider Pediatrics; PCP Student in an Organized Health Care Education/Training Program; Referring Provider Urology; Visit Provider Urology
DX: N40.1 Benign prostatic hyperplasia with lower urinary tract symptoms (principal); R33.9 Retention of urine, unspecified; N20.0 Calculus of kidney; J90 Pleural effusion, not elsewhere classified; Z96.0 Presence of urogenital implants
CPT/HCPCS: 76770

== ENCOUNTER → 2024-12-16 14:32 | Outpatient (CLI) | payer MEDICARE, SELFPAY ==
[2024-09-15 16:25] VITALS: BMI 21.7
[2024-12-16 15:34] LABS: HEMOLYSIS < 15 (0-50); Iron 32 ug/dL (49-181)
[2024-12-16 15:49] LABS: Percent Iron Saturation 12 % (20-50); Total Iron Binding Capacity 264 ug/dL (261-462); Transferrin 214 mg/dL (206-381)
[2024-12-16 16:12] LABS: Ferritin 83 ng/mL (18-464)
== END ==
PROVIDERS: Family Provider Pediatrics; PCP Student in an Organized Health Care Education/Training Program; Referring Provider Student in an Organized Health Care Education/Training Program; Visit Provider Student in an Organized Health Care Education/Training Program
DX: D64.9 Anemia, unspecified (principal)
CPT/HCPCS: 36415; 82728; 83540; 83550